=== PATIENT | male | born 1960 | race Caucasian/White ===

== ENCOUNTER 2021-10-18 10:32 | Emergency (ER) | payer OTHER ==
[2021-10-18] MEDS ORDERED: Hydromorphone 1 mg/ml Injection IM ONE (10:52)
[2021-10-18] MEDS ORDERED: MOTRIN 600 MG PO ONE (10:53)
[2021-10-18] MEDS ORDERED: Zofran 4 MG/2 ML VIAL IV ONE (10:54)
[2021-10-18] MEDS ORDERED: Zofran 4 MG/2 ML VIAL ONE (10:59)
[2021-10-18] MEDS ORDERED: Hydromorphone 1 mg/ml Injection ONE (11:00)
[2021-10-18] MEDS ORDERED: MOTRIN 600 MG ONE (11:00)
--- NOTE | 2021-10-18 11:43 | ERPHSYRPT ---
- History of Present Illness Time Seen by Provider: 10/18/21 10:34 Source: patient Exam Limitations: no limitations Patient Subjective Stated Complaint: Pt was in the shower and slipped and fell and landed with his right arm hitting the bath tub and injuring his right shou lder, pt feels that it is out of socket and is unable to move it Triage Nursing Assessment: Pt brought to the ER by his daughter, hypertensive, rates pain as 6/10, unable to move right arm without pain, denies hitting head or LOC, pulses normal, skin n/w/d Physician History: Location: right shoulder Quality: sharp Radiation: into arm Severity: moderate 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 Timing: after fall Modifying factors/associated signs and symptoms: none tried Timing/Duration: today Severity: moderate Modifying Factors: Improves With: other Allergies/Adverse Reactions: No Known Drug Allergies Allergy (Verified 10/18/21 10:49) Home Medications: Amiloride/Hydrochlorothiazide [Amiloride HCl-Hctz 5-50 mg Tab] 5 - 50 mg PO DAILY 08/12/16 [History] Amlodipine Besylate 5 mg [Norvasc 5 mg] 5 mg PO DAILY 08/12/16 [History] Atorvastatin Calcium [Lipitor 20MG Tablet] 20 mg PO DAILY 08/12/16 [History] Benazepril HCl 40 mg PO DAILY 08/12/16 [History] Duloxetine HCl 30 mg [Cymbalta 30 MG Capsule] 60 mg PO DAILY 08/12/16 [History] Empagliflozin [Jardiance] 10 mg PO DAILY 08/12/16 [History] Gabapentin [Neurontin] 300 mg PO TID 08/12/16 [History] Glipizide 10 mg [Glucotrol 10 MG] 10 mg PO DAILY 08/12/16 [History] Hydralazine HCl 50 mg PO BID 08/12/16 [History] Liraglutide [Victoza 3-Christ] 1.8 mg SQ DAILY 08/12/16 [History] Metformin HCl 1000 mg [Glucophage 1000 MG] 1,000 mg PO BID 08/12/16 [History] Metoprolol Tartrate 100 mg PO BID 08/12/16 [History] Trazodone HCl 100 mg PO HS PRN 11/03/16 [History] Hx Influenza Vaccination/Date Given: No Hx Pneumococcal Vaccination/Date Given: No Travel Risk - International Travel Have you traveled outside of the country in past 3 weeks: No - Coronavirus Screening Are you exhibiting any of the following symptoms?: No Close contact with a COVID-19 positive Pt in past 14-21 Days: No - Vaccine Status Have you recieved a Covid-19 vaccination: No - Review of Systems Constitutional: No Fever, No Chills Eyes: No Symptoms Ears, Nose, & Throat: No Symptoms Respiratory: No Cough, No Dyspnea Cardiac: No Chest Pain, No Edema, No Syncope Abdominal/Gastrointestinal: No Abdominal Pain, No Nausea, No Vomiting, No Diarrhea Genitourinary Symptoms: No Dysuria Musculoskeletal: No Back Pain, No Neck Pain Skin: Other (right shoulder pain), No Rash Neurological: No Dizziness, No Focal Weakness, No Sensory Changes Psychological: No Symptoms Endocrine: No Symptoms All Other Systems: Reviewed and Negative - Past Medical History Pertinent Past Medical History: Yes Neurological History: TIA ENT History: Other Cardiac History: High Cholesterol, Hypertension, Other Respiratory History: No Pertinent History Endocrine Medical History: Diabetes Type II Musculoskeletal History: No Pertinent History GI Medical History: No Pertinent History History: No Pertinent History Psycho-Social History: Anxiety, Depression Male Reproductive Disorders: No Pertinent History Other Medical History: pt states vision is blurry- may have mac deg. Has been told his heart is enlarged. - Past Surgical History Past Surgical History: No - Social History Smoking Status: Current some day smoker Exposure to second hand smoke: Yes Drug Use: none Patient Lives Alone: Yes - Nursing Vital Signs Nursing Vital Signs: Initial Vital Signs Temperature 96.7 F 10/18/21 10:44 Pulse Rate 96 H 10/18/21 10:44 Blood Pressure 154/100 10/18/21 10:44 O2 Sat by Pulse Oximetry 98 10/18/21 10:44 Pain Scale Pain Intensity 6 - Physical Exam General Appearance: no apparent distress, alert Eye Exam: PERRL/EOMI, eyes nml inspection Ears, Nose, Throat Exam: normal ENT inspection, TMs normal, pharynx normal, moist mucous membranes Neck Exam: normal inspection, non-tender, supple, full range of motion Respiratory Exam: normal breath sounds, lungs clear, No respiratory distress Cardiovascular Exam: regular rate/rhythm, normal heart sounds, normal peripheral pulses Gastrointestinal/Abdomen Exam: soft, normal bowel sounds, No tenderness, No mass Back Exam: normal inspection, normal range of motion, No CVA tenderness, No vertebral tenderness Extremity Exam: normal inspection, normal range of motion, pelvis stable, other (right shoulder pain and tenderness to palpation. Neurovascularly intact distal to injury) Neurologic Exam: alert, oriented x 3, cooperative, normal mood/affect, nml cerebellar function, nml station & gait, sensation nml, No motor deficits Skin Exam: normal color, warm, dry, No rash Lymphatic Exam: No adenopathy SpO2: 98 Procedures - Joint Reduction Time of Procedure: 11:55 Joint Reduction Site: Right, shoulder Conscious Sedation: Yes Reduction Attempts: 1 Pre-Procedure Neurovascular Exam: neurovascular intact Post Procedure Neurovascular Exam: neurovascular intact Post Joint Reduction Film: joint reduced - Procedural Sedation Indication: joint reduction Preparation: consent signed, capnographry, iv access, constant attendance, panel monitor, oxygen, procedure explained, pulse oximeter Sedation Parenteral: Propofol (Diprovan) Response during procedure: moderate sedation Post-Procedure Response: return to baseline mental status, vital signs stable - Course Nursing assessment & vital signs reviewed: Yes Ordered Tests: Active Orders 24 hr Category Date Time Status CO2 Monitoring STAT Care 10/18/21 13:01 Active HUMERUS Stat Exams 10/18/21 Taken SHOULDER Routine Exams 10/18/21 12:46 Taken SHOULDER Stat Exams 10/18/21 11:53 Taken Standby STAT RT 10/18/21 13:02 Active Medication Summary Generic Name Dose Route Start Last Admin Trade Name Freq PRN Reason Stop Dose Admin Propranolol HCl 100 mg 10/18/21 12:00 Propranolol Hcl 1 Mg/Ml Sdv IV 11/17/21 11:59 [id number] KALLIE Discontinued Medications Generic Name Dose Route Start Last Admin Trade Name Freq PRN Reason Stop Dose Admin Hydromorphone HCl 1 mg 10/18/21 10:52 10/18/21 11:06 Hydromorphone 1 Mg/1ml Inj 1 Mg/Ml Syringe IM 10/18/21 10:53 1 mg STAT ONE Administration Hydromorphone HCl Confirm 10/18/21 11:00 Hydromorphone 1 Mg/1ml Inj 1 Mg/Ml Syringe Administered 10/18/21 11:01 Dose 1 mg .ROUTE .STK-MED ONE Ibuprofen 600 mg 10/18/21 10:53 10/18/21 11:05 Ibuprofen 600 Mg Tablet PO 10/18/21 10:54 600 mg STAT ONE Administration Ibuprofen Confirm 10/18/21 11:00 Ibuprofen 600 Mg Tablet Administered 10/18/21 11:01 Dose 600 mg .ROUTE .STK-MED ONE Ondansetron HCl 8 mg 10/18/21 10:54 10/18/21 11:05 Ondansetron Hcl 4 Mg/2 Ml Vial IV 10/18/21 10:55 8 mg STAT ONE Administration Ondansetron HCl Confirm 10/18/21 10:59 Ondansetron Hcl 4 Mg/2 Ml Vial Administered 10/18/21 11:00 Dose 8 mg .ROUTE .STK-MED ONE Propofol 200 mg 10/18/21 12:09 10/18/21 12:32 Propofol 10 Mg/Ml 20ml Vial IV 10/18/21 12:10 100 mg STAT ONE Administration - Progress Progress: improved Progress Note: 10/18/21 11:43 Right shoulder pain. We will obtain x-ray right shoulder and right humerus. IV started, IV pain medication given. 10/18/21 13:25 Shoulder reduction successful. Propofol and IV Dilaudid given. See procedure note for full details. Patient will need close follow-up with orthopedic surgery. Reexam in 24 to 48 hours. Placed in a sling for home. He should not return to work or remove sling until follow-up with orthopedic surgery. Counseled pt/family regarding: diagnosis, need for follow-up, rad results - Departure Departure Disposition: In-patient Admission Clinical Impression: Shoulder dislocation Condition: Stable Critical Care Time: No Referrals: IRVING HENRY MD [Primary Care Provider] - Follow up/PCP as directed Instructions: Shoulder Sprain (DC) Additional Instructions: Follow-up with outpatient orthopedic surgery in 24 to 48 hours.
[2021-10-18] MEDS ORDERED: INDERAL 1 MG/ML IV SCH (12:00)
[2021-10-18] MEDS ORDERED: DIPRIVAN 200 MG/20 ML IV ONE (12:09)
[2021-10-18 13:04] VITALS: BP 142/116; PULSE 89
[2021-10-18 13:28] VITALS: O2SAT 98
--- NOTE | 2021-10-18 18:19 | XRAY ---
Indication: Pain following fall. Comparison: None 3 view right shoulder demonstrates anterior inferior humeral head dislocation. Incidental moderate acromioclavicular degenerative arthropathy with inferior spurring and multilevel cervical degenerative changes. No other bony, articular, or soft tissue abnormalities.
--- NOTE | 2021-10-18 18:22 | XRAY ---
Indication: Post reduction. Comparison comparison: Taken earlier in the day. 2 view right shoulder demonstrates successful reduction of previous humeral head dislocation. Stable AC degenerative arthropathy. No other bony, articular, or soft tissue abnormalities. Comment: Preliminary interpretation made by ALYSHA. No critical discrepancy.
--- NOTE | 2021-10-18 18:22 | XRAY ---
Indication: Pain following fall. Comparison: None 2 view right humerus demonstrates anterior inferior humeral head dislocation. Incidental moderate acromioclavicular degenerative arthropathy with inferior spurring. No other bony, articular, or soft tissue abnormalities.
== END 2021-10-18 13:34 | disposition home or self-care (01) ==
LOC: ED 10:32
DX: S43.014A Anterior dislocation of right humerus, initial encounter (principal); W01.198A Fall on same level from slipping, tripping and stumbling with subsequent striking against other object, initial encounter; Y93.E1 Activity, personal bathing and showering; Y92.002 Bathroom of unspecified non-institutional (private) residence as the place of occurrence of the external cause; I10 Essential (primary) hypertension; E78.5 Hyperlipidemia, unspecified; E11.9 Type 2 diabetes mellitus without complications; Z79.899 Other long term (current) drug therapy; Z79.84 Long term (current) use of oral hypoglycemic drugs; Z72.0 Tobacco use
CPT/HCPCS: 23650; 73030; 73060; 94799; 96374; 96375; 99284; J1170; J2405; J2704; A9270-GY

== ENCOUNTER 2022-03-11 17:29 | Observation (INO) | payer OTHER ==
[2022-03-11] MEDS ORDERED: MORPHINE SULFATE 4 MG INJ IV ONE (17:43)
[2022-03-11] MEDS ORDERED: Zofran 4 MG/2 ML VIAL IV ONE (17:43)
[2022-03-11] MEDS ORDERED: BABY ASPIRIN 81 MG CHEW PO ONE (17:44)
[2022-03-11] MEDS ORDERED: Lasix 40 MG/4 ML IV ONE (17:45)
[2022-03-11] MEDS ORDERED: Cardizem IV 50 MG/10 ML IV ONE ×2 (17:46→17:58)
[2022-03-11] MEDS ORDERED: CARDIZEM DRIP 100 MG/100 ML D5W 100 ML IV PRN ×2 (17:46→23:14)
[2022-03-11] MEDS ORDERED: DUONEB 0.5-3 MG/3 ml Neb IH ONE ×2 (17:46→17:50)
[2022-03-11 17:55] LABS: Absolute Neutrophil Ct (ANC) 6.46 x10^3/uL (1.4-6.9); Basophil (Absolute #) 0.11 x10^3/uL (0-0.4); Eosinophil % 1.3 % (0.00-5.0); Eosinophil (Absolute #) 0.12 x10^3/uL (0-0.5); Hematocrit 54.4 % (42-50); Hemoglobin 17.2 g/dL (12.5-18.0); Lymphocyte (Absolute #) 2.22 x10^3/uL (1.0-4.6); Lymphocytes % 23.3 % (24.0-44.0); Mean Cell Volume 90.1 fL (78-100); Mean Corpuscular Hemoglobin 28.5 pg (26-32); Mean Corpuscular Hgb Concent. 31.6 g/dL (32-36); Mean Platelet Volume 11.1 fL (7.5-11.0); Monocyte (Absolute #) 0.55 x10^3/uL (0.0-1.3); Monocytes % 5.8 % (0.0-12.0); Neutrophil % 67.9 % (36.0-66.0); Platelet Count 327 x10^3/uL (150-450); Red Blood Count 6.04 x10^6/uL (4.1-5.6); Red Cell Distribution Width 15.8 % (11.5-14.0); White Blood Count 9.5 x10^3/uL (4.0-10.5)
[2022-03-11] MEDS ORDERED: Lasix 40 MG/4 ML ONE (17:57)
[2022-03-11] MEDS ORDERED: MORPHINE SULFATE 4 MG INJ ONE (17:57)
[2022-03-11] MEDS ORDERED: BABY ASPIRIN 81 MG CHEW ONE (17:57)
[2022-03-11] MEDS ORDERED: CARDIZEM DRIP 100 MG/100 ML D5W 100 ML IV ONE (17:57)
[2022-03-11] MEDS ORDERED: Zofran 4 MG/2 ML VIAL ONE (17:57)
--- NOTE | 2022-03-11 18:08 | ERPHSYRPT ---
<HADLEY AYALA - Last Filed: 03/11/22 19:41> - History of Present Illness Source: patient Exam Limitations: no limitations Patient Subjective Stated Complaint: Pt c/o of being short of breath all day Triage Nursing Assessment: Pt brought to the ER by his daughter, hypertensive, tachycardic, tachypnic, denies pain, martin lower extremety edema, pulses normal, skin flushed/w/d Timing/Duration: day(s) (3), constant, resolved prior to arrival, gradual onset Activities at Onset: activity, rest Severity of Dyspnea-Max: moderate Severity of Dyspnea-Current: moderate Modifying Factors: Worsens With: exertion Associated Symptoms: chest pain/discomfort, edema, wheezing, heaviness Hx Influenza Vaccination/Date Given: No Hx Pneumococcal Vaccination/Date Given: No <IFTIKHAR MURRAY - Last Filed: 03/12/22 08:48> - History of Present Illness Time Seen by Provider: 03/11/22 17:43 Physician History: 62 years old male with history of hypertension, hyperlipidemia, diabetes mellitus, congestive heart failure, tobacco abuse presented in the ER with 3 days history of increasing shortness of breath and bilateral lower extremity swelling. Patient reports mild chest discomfort/heaviness but no pain. On presentation patient is in A. fib with RVR with no previous history of atrial fibrillation. (IFTIKHAR MURRAY) Allergies/Adverse Reactions: No Known Drug Allergies Allergy (Verified 03/11/22 17:46) Home Medications: Amlodipine Besylate 5 mg [Norvasc 5 mg] 5 mg PO DAILY 08/12/16 [History] Atorvastatin Calcium [Lipitor 20MG Tablet] 20 mg PO HS 08/12/16 [History] Benazepril HCl 40 mg PO DAILY 08/12/16 [History] Duloxetine HCl 30 mg [Cymbalta 30 MG Capsule] 60 mg PO DAILY 08/12/16 [History] Empagliflozin [Jardiance] 25 mg PO DAILY 08/12/16 [History] Gabapentin [Neurontin] 600 mg PO BID 08/12/16 [History] Glipizide 10 mg [Glucotrol 10 MG] 5 mg PO DAILY 08/12/16 [History] Hydralazine HCl 50 mg PO BID 08/12/16 [History] Metformin HCl 1000 mg [Glucophage 1000 MG] 1,000 mg PO BID 08/12/16 [History] Metoprolol Tartrate 50 mg PO BID 08/12/16 [History] Trazodone HCl 100 mg PO HS PRN 08/12/16 [History] Ammonium Lactate [Ammonium Lactate 12%] 1 applic TP HS 03/11/22 [History] Insulin Detemir [Levemir] 60 unit SQ BID 03/11/22 [History] Insulin Lispro [Admelog Solostar] 25 units SQ BID 03/11/22 [History] Tamsulosin HCl 0.4 mg [Flomax 0.4 MG] 0.4 mg PO HS 03/11/22 [History] Travel Risk - International Travel Have you traveled outside of the country in past 3 weeks: No - Coronavirus Screening Are you exhibiting any of the following symptoms?: No Close contact with a COVID-19 positive Pt in past 14-21 Days: No - Vaccine Status Have you recieved a Covid-19 vaccination: No <IFTIKHAR MURRAY - Last Filed: 03/12/22 08:48> - Review of Systems Constitutional: Fatigue, Weakness Eyes: No Symptoms Ears, Nose, & Throat: No Symptoms Respiratory: Dyspnea, Dyspnea on Exertion (HOUSER), Wheezing Cardiac: Edema, Palpitations Abdominal/Gastrointestinal: No Symptoms Genitourinary Symptoms: No Symptoms Musculoskeletal: No Symptoms Skin: No Symptoms Neurological: No Symptoms Psychological: No Symptoms Endocrine: No Symptoms Hematologic/Lymphatic: No Symptoms Immunological/Allergic: No Symptoms <IFTIKHAR MURRAY - Last Filed: 03/12/22 08:48> - Past Medical History Pertinent Past Medical History: Yes Neurological History: TIA ENT History: Other Cardiac History: Arrhythmia, High Cholesterol, Hypertension, Other Respiratory History: No Pertinent History Endocrine Medical History: Diabetes Type II Musculoskeletal History: No Pertinent History GI Medical History: No Pertinent History History: No Pertinent History Psycho-Social History: Anxiety, Depression Male Reproductive Disorders: No Pertinent History Other Medical History: pt states vision is blurry- may have mac deg. Has been told his heart is enlarged. - Past Surgical History Past Surgical History: Yes Musculoskeletal: Orthopedic Surgery Other Surgical History: shoulder - Social History Smoking Status: Current some day smoker Exposure to second hand smoke: Yes Drug Use: none Patient Lives Alone: Yes <TREVOR,IFTIKHAR - Last Filed: 03/12/22 08:48> - Physical Exam General Appearance: moderate distress, alert Eye Exam: PERRL/EOMI, eyes nml inspection Ears, Nose, Throat Exam: hearing grossly normal, normal ENT inspection Neck Exam: normal inspection, non-tender, supple, full range of motion Respiratory Exam: diminished breath sounds, accessory muscle use, crackles/rales, wheezing Cardiovascular/Chest Exam: normal heart sounds, edema, tachycardia, irregular Abdominal/Gastrointestinal Exam: soft, No tenderness Extremity Exam: non-tender, normal range of motion Neurologic Exam: alert, oriented x 3, cooperative Skin Exam: normal color SpO2 Interpretation: normal SpO2: 96 O2 Delivery: Room Air <TREVOR,IFTIKHAR - Last Filed: 03/12/22 08:48> - Nursing Vital Signs Nursing Vital Signs: Initial Vital Signs Temperature 96.4 F 03/11/22 17:34 Pulse Rate 135 H 03/11/22 17:34 Respiratory Rate 32 H 03/11/22 17:34 Blood Pressure 197/131 03/11/22 17:34 O2 Sat by Pulse Oximetry 96 03/11/22 17:34 Pain Scale Pain Intensity 0 - Course EKG Interpreted by Me: RATE (137), A-fib, NORMAL AXIS, NORMAL INTERVALS, Q-wave (Anteroinferior), Other (Nonspecific T wave changes) <TREVOR,IFTIKHAR - Last Filed: 03/12/22 08:48> Ordered Tests: Active Orders 24 hr Category Date Time Status Bedrest ROUTINE Activity 03/11/22 20:30 Active Up With Assistance ROUTINE Activity 03/11/22 20:30 Active Admit as Inpatient ROUTINE Care 03/11/22 20:30 Completed Web Content Coordinator STAT Care 03/11/22 17:44 Completed Code Status Order ROUTINE Care 03/11/22 20:30 Active EKG-ER Only STAT Care 03/11/22 17:43 Completed Fall Protocol Q1H Care 03/11/22 20:30 Active IV Care Q6H Care 03/11/22 20:30 Active IV Insertion STAT Care 03/11/22 17:43 Completed Oxygen-ED Only Nasal Cannula 2 lpm Care 03/11/22 17:43 Completed POCT Glucose Check ACHS Care 03/11/22 20:30 Active Donavan Fried, Apply ROUTINE Care 03/11/22 20:30 Active Weight,Daily 0600 Care 03/11/22 20:30 Active CHEST 1 VIEW (PORTABLE) Stat Exams 03/11/22 17:44 Completed CHEST WITH CONTRAST [CT] Stat Exams 03/11/22 18:38 Completed BLOOD CULTURE Stat Lab 03/11/22 18:10 Received CBC W DIFF AM.LAB Lab 03/12/22 04:15 Completed CBC W DIFF Stat Lab 03/11/22 17:41 Completed CK-Creatinine Phosphokinase Stat Lab 03/11/22 17:41 Completed CMP AM.LAB Lab 03/12/22 04:15 Completed CMP Stat Lab 03/11/22 17:41 Completed Lactic Acid Stat Lab 03/11/22 18:10 Completed NT PRO BNP Stat Lab 03/11/22 17:41 Completed TROPONIN Q3H Lab 03/11/22 17:41 Completed TROPONIN Q3H Lab 03/11/22 21:55 Completed TROPONIN Q3H Lab 03/11/22 23:45 Completed Oxygen Nasal Cannula 2 lpm RT 03/11/22 20:30 Active Respiratory Therapy Assessment DAILY RT 03/11/22 17:52 Active Medication Summary Generic Name Dose Route Start Last Admin Trade Name Freq PRN Reason Stop Dose Admin Acetaminophen 650 mg 03/11/22 20:30 Acetaminophen 325 Mg Tablet PO 04/10/22 20:29 Q4H PRN PRN PAIN AND/OR FEVER Albuterol/Ipratropium 3 ml 03/11/22 22:41 Ipratropium/Albuterol Sulfate 3 Ml Ampul.Neb IH 04/10/22 22:39 Q4HPRN PRN SHORTNESS OF BREATH Furosemide 20 mg 03/12/22 10:00 Furosemide 20 Mg/Vial IV 04/11/22 09:59 DAILY [facility] Insulin Glargine 20 unit 03/12/22 22:00 Insulin Glargine 1 Unit SQ 04/11/22 21:59 HS [facility] Insulin Human Lispro 0 unit 03/11/22 20:30 Insulin Lispro 1 Unit SQ 04/10/22 20:29 UD PRN HYPERGLYCEMIA Morphine Sulfate 2 mg 03/11/22 20:30 Morphine Sulfate 2 Mg/Ml Inj IV 03/16/22 20:29 Q4H PRN PRN PAIN Ondansetron HCl 4 mg 03/11/22 20:30 Ondansetron Hcl 4 Mg/2 Ml Vial IV 04/10/22 20:29 Q6H PRN PRN NAUSEA/VOMITING Pantoprazole Sodium 40 mg 03/12/22 10:00 Pantoprazole 40 Mg Vial IV 04/11/22 09:59 Q24H10 [facility] Potassium Chloride 20 meq 03/12/22 10:00 Potassium Chloride Tab 10 Meq Tab PO 04/11/22 09:59 BID [facility] Discontinued Medications Generic Name Dose Route Start Last Admin Trade Name Freq PRN Reason Stop Dose Admin Albuterol/Ipratropium 3 ml 03/11/22 17:46 03/11/22 17:52 Ipratropium/Albuterol Sulfate 3 Ml Ampul.Neb IH 03/11/22 17:47 3 ml STAT ONE Administration Albuterol/Ipratropium Confirm 03/11/22 17:50 Ipratropium/Albuterol Sulfate 3 Ml Ampul.Neb Administered 03/11/22 17:51 Dose 3 ml IH .STK-MED ONE Albuterol/Ipratropium 3 ml 03/11/22 20:30 03/12/22 04:26 Ipratropium/Albuterol Sulfate 3 Ml Ampul.Neb IH 04/10/22 20:29 Not Given Q6HRT [facility] Apixaban 5 mg 03/12/22 10:00 Apixaban 2.5 Mg Tablet PO 04/11/22 09:59 BID [facility] Aspirin 324 mg 03/11/22 17:44 03/11/22 17:59 Aspirin 81 Mg Tab.Chew PO 03/11/22 17:45 324 mg STAT ONE Administration Aspirin Confirm 03/11/22 17:57 Aspirin 81 Mg Tab.Chew Administered 03/11/22 17:58 Dose 324 mg .ROUTE .STK-MED ONE Diltiazem HCl 15 mg 03/11/22 17:46 03/11/22 18:00 Diltiazem Hcl Iv 5 Mg/Ml Vial IV 03/11/22 17:47 15 mg STAT ONE Administration Diltiazem HCl Confirm 03/11/22 17:58 Diltiazem Hcl Iv 5 Mg/Ml Vial Administered 03/11/22 17:59 Dose 50 mg IV .STK-MED ONE Enoxaparin Sodium 130 mg 03/11/22 19:00 03/11/22 22:32 Enoxaparin Sodium 120 Mg/0.8 Ml Syringe 1 mg/kg (130 mg) 04/10/22 18:59 Not Given SQ Q12H KALLIE Enoxaparin Sodium 120 mg 03/11/22 19:13 03/11/22 19:23 Enoxaparin Sodium 120 Mg/0.8 Ml Syringe SQ 03/11/22 19:14 120 mg 1XONLY ONE Administration Enoxaparin Sodium Confirm 03/11/22 19:07 Enoxaparin Sodium 120 Mg/0.8 Ml Syringe Administered 03/11/22 19:08 Dose 120 mg SQ .STK-MED ONE Furosemide 60 mg 03/11/22 17:45 03/11/22 18:04 Furosemide 40 Mg/4 Ml Vial IV 03/11/22 17:46 60 mg STAT ONE Administration Furosemide Confirm 03/11/22 17:57 Furosemide 40 Mg/4 Ml Vial Administered 03/11/22 17:58 Dose 80 mg .ROUTE .STK-MED ONE Gabapentin 600 mg 03/11/22 22:00 03/11/22 22:00 Gabapentin 300 Mg Capsule PO 03/11/22 22:01 600 mg ONCE ONE Administration Hydralazine HCl 50 mg 03/11/22 22:00 03/11/22 22:00 Hydralazine Hcl 25 Mg Tablet PO 03/11/22 22:01 50 mg ONCE ONE Administration Diltiazem HCl 100 mls @ 5 mls/hr 03/11/22 17:46 03/11/22 18:05 Cardizem Drip 100 Mg/100 Ml D5w IV 04/10/22 17:45 5 mg/hr .Q20H PRN 5 mls/hr HEART RATE/ A-FIB Administration Protocol 5 MG/HR Ceftriaxone Sodium/Dextrose 2 g in 50 mls @ 100 mls/hr 03/11/22 18:11 03/11/22 20:15 Rocephin 2 Gm-D5w 50ml Bag IV 03/11/22 18:40 Infused STAT STA Infusion Azithromycin 500 mg in 250 mls @ 250 mls/hr 03/11/22 18:11 03/11/22 20:16 Zithromax 500 Mg/ 250 Ml Nacl Premix IV 03/11/22 19:10 Infused STAT STA Infusion Ceftriaxone Sodium/Dextrose Confirm 03/11/22 18:42 Rocephin 2 Gm-D5w 50ml Bag Administered 03/11/22 18:43 Dose 2 g in 50 mls @ ud IV .STK-MED ONE Azithromycin Confirm 03/11/22 18:58 Zithromax 500 Mg/ 250 Ml Nacl Premix Administered 03/11/22 18:59 Dose 500 mg in 250 mls @ ud IV .STK-MED ONE Azithromycin Confirm 03/11/22 19:08 Zithromax 500 Mg/ 250 Ml Nacl Premix Administered 03/11/22 19:09 Dose 500 mg in 250 mls @ ud IV .STK-MED ONE Diltiazem HCl Confirm 03/11/22 17:57 Cardizem Drip 100 Mg/100 Ml D5w Administered 03/11/22 17:58 Dose 100 mls @ ud IV .STK-MED ONE Diltiazem HCl 100 mls @ 5 mls/hr 03/11/22 23:14 03/12/22 02:15 Cardizem Drip 100 Mg/100 Ml D5w IV 04/10/22 23:13 0 mg/hr .Q20H PRN 0 mls/hr HEART RATE/ A-FIB Titration Protocol 5 MG/HR Potassium Chloride 20 meq in 100 mls @ 50 mls/hr 03/12/22 06:06 03/12/22 06:22 Potassium Chloride 20 Meq In Water 100ml IV 03/12/22 08:05 50 mls/hr STAT ONE Administration Sodium Chloride Confirm 03/12/22 06:17 Sodium Chloride 0.9% 1000 Ml Administered 03/12/22 06:18 Dose 1,000 mls @ ud .ROUTE .STK-MED ONE Insulin Glargine 60 unit 03/11/22 22:00 03/11/22 22:03 Insulin Glargine 1 Unit SQ 03/11/22 22:01 60 unit HS ONE Administration Metformin HCl 1,000 mg 03/11/22 22:00 03/11/22 22:00 Metformin Hcl 500 Mg Tablet PO 03/11/22 22:01 Not Given ONCE ONE Metoprolol Succinate 50 mg 03/11/22 22:00 03/11/22 21:59 Metoprolol Succinate 50 Mg Tablet.Sa PO 03/11/22 22:01 50 mg ONCE ONE Administration Morphine Sulfate 4 mg 03/11/22 17:43 03/11/22 18:04 Morphine Sulfate 4 Mg/Ml Injection IV 03/11/22 17:44 4 mg STAT ONE Administration Morphine Sulfate Confirm 03/11/22 17:57 Morphine Sulfate 4 Mg/Ml Injection Administered 03/11/22 17:58 Dose 4 mg .ROUTE .STK-MED ONE Ondansetron HCl 4 mg 03/11/22 17:43 03/11/22 18:04 Ondansetron Hcl 4 Mg/2 Ml Vial IV 03/11/22 17:44 4 mg STAT ONE Administration Ondansetron HCl Confirm 03/11/22 17:57 Ondansetron Hcl 4 Mg/2 Ml Vial Administered 03/11/22 17:58 Dose 4 mg .ROUTE .STK-MED ONE Simvastatin 20 mg 03/11/22 22:00 03/11/22 21:59 Simvastatin 20 Mg Tablet PO 03/11/22 22:01 20 mg ONCE ONE Administration Tamsulosin HCl 0.4 mg 03/11/22 22:00 03/11/22 22:00 Tamsulosin Hcl 0.4 Mg Cap PO 03/11/22 22:01 0.4 mg ONCE ONE Administration Trazodone HCl 100 mg 03/11/22 22:00 03/11/22 22:00 Trazodone Hcl 50 Mg Tablet PO 03/11/22 22:01 100 mg ONCE ONE Administration Lab/Rad Data: Laboratory Result [facility] 03/11/22 17:41 03/11/22 17:41 Laboratory Results 03/11/22 03/11/22 03/11/22 Range/Units 18:20 18:10 17:41 WBC (4.0-10.5) x10^3/uL RBC (4.1-5.6) x10^6/uL Hgb (12.5-18.0) g/dL Hct (42-50) % MCV (78-100) fL MCH (26-32) pg MCHC (32-36) g/dL RDW (11.5-14.0) % Plt Count (150-450) x10^3/uL MPV (7.5-11.0) fL Gran % (36.0-66.0) % Immature Gran % (Auto) (0.00-0.4) % Nucleat RBC Rel Count (0.00-0.1) % Eos # (Auto) (0-0.5) x10^3/uL Immature Gran # (Auto) (0.00-0.03) x10^3u/L Absolute Lymphs (auto) (1.0-4.6) x10^3/uL Absolute Monos (auto) (0.0-1.3) x10^3/uL Absolute Nucleated RBC (0.00-0.01) x10^3u/L Lymphocytes % (24.0-44.0) % Monocytes % (0.0-12.0) % Eosinophils % (0.00-5.0) % Basophils % (0.0-0.4) % Absolute Granulocytes (1.4-6.9) x10^3/uL Basophils # (0-0.4) x10^3/uL Sodium (137-145) mmol/L Potassium (3.5-5.1) mmol/L Chloride (98-107) mmol/L Carbon Dioxide (22-30) mmol/L Anion Gap (5-15) MEQ/L BUN (9-20) mg/dL Creatinine (0.66-1.25) mg/dL Estimated GFR ML/MIN Glucose (74-106) mg/dL Lactic Acid 1.7 (0.4-2.0) Calcium (8.4-10.2) mg/dL Total Bilirubin (0.2-1.3) mg/dL AST (17-59) U/L ALT (0-50) U/L Alkaline Phosphatase (38-126) U/L Creatine Kinase (55-170) U/L Troponin I 0.066 H* (0.000-0.034) ng/mL NT-Pro-B Natriuret Pep (0-900) pg/mL Serum Total Protein (6.3-8.2) g/dL Albumin (3.5-5.0) g/dL Influenza Type A Ag NEGATIVE (NEGATIVE) Influenza Type B Ag NEGATIVE (NEGATIVE) RSV (PCR) NEGATIVE (Negative) SARS-CoV-2 (PCR) NEGATIVE (NEGATIVE) 03/11/22 03/11/22 Range/Units 17:41 17:41 WBC 9.5 (4.0-10.5) x10^3/uL RBC 6.04 H (4.1-5.6) x10^6/uL Hgb 17.2 (12.5-18.0) g/dL Hct 54.4 H (42-50) % MCV 90.1 (78-100) fL MCH 28.5 (26-32) pg MCHC 31.6 L (32-36) g/dL RDW 15.8 H (11.5-14.0) % Plt Count 327 (150-450) x10^3/uL MPV 11.1 H (7.5-11.0) fL Gran % 67.9 H (36.0-66.0) % Immature Gran % (Auto) 0.5 H (0.00-0.4) % Nucleat RBC Rel Count 0.0 (0.00-0.1) % Eos # (Auto) 0.12 (0-0.5) x10^3/uL Immature Gran # (Auto) 0.05 H (0.00-0.03) x10^3u/L Absolute Lymphs (auto) 2.22 (1.0-4.6) x10^3/uL Absolute Monos (auto) 0.55 (0.0-1.3) x10^3/uL Absolute Nucleated RBC 0.00 (0.00-0.01) x10^3u/L Lymphocytes % 23.3 L (24.0-44.0) % Monocytes % 5.8 (0.0-12.0) % Eosinophils % 1.3 (0.00-5.0) % Basophils % 1.2 (0.0-0.4) % Absolute Granulocytes 6.46 (1.4-6.9) x10^3/uL Basophils # 0.11 (0-0.4) x10^3/uL Sodium 144 (137-145) mmol/L Potassium 3.6 (3.5-5.1) mmol/L Chloride 107 (98-107) mmol/L Carbon Dioxide 28 (22-30) mmol/L Anion Gap 13.5 (5-15) MEQ/L BUN 16 (9-20) mg/dL Creatinine 0.90 (0.66-1.25) mg/dL Estimated GFR > 60.0 ML/MIN Glucose 152 H (74-106) mg/dL Lactic Acid (0.4-2.0) Calcium 9.6 (8.4-10.2) mg/dL Total Bilirubin 1.00 (0.2-1.3) mg/dL AST 60 H (17-59) U/L ALT 43 (0-50) U/L Alkaline Phosphatase 190 H (38-126) U/L Creatine Kinase 84 (55-170) U/L Troponin I (0.000-0.034) ng/mL NT-Pro-B Natriuret Pep 7620 H (0-900) pg/mL Serum Total Protein 7.0 (6.3-8.2) g/dL Albumin 3.9 (3.5-5.0) g/dL Influenza Type A Ag (NEGATIVE) Influenza Type B Ag (NEGATIVE) RSV (PCR) (Negative) SARS-CoV-2 (PCR) (NEGATIVE) <HADLEY AYALA - Last Filed: 03/11/22 19:41> - Progress Progress: improved Air Movement: fair Blood Culture(s) Obtained: Yes Antibiotics given: Yes Discussed with : Claire Will see patient in: hospital (observation) Counseled pt/family regarding: lab results, diagnosis, rad results <IFTIKHAR MURRAY - Last Filed: 03/12/22 08:48> - Progress Progress Note: 03/11/22 19:41 CTA of chest shows no pulmonary embolus. There is moderate bilateral effusions right greater than left. Favors CHF. (HADLEY AYALA) 03/11/22 18:[address] Morris, reviewed history, work-up and is excepted for admission. (IFTIKHAR MURRAY) - Departure Critical Care Time: Yes Critical Care Time(excluding separately billable procedures): Critical 30-74 mins <HADLEY AYALA - Last Filed: 03/11/22 19:41> - Departure Departure Disposition: In-patient Admission Critical Care Time: Yes Critical Care Time(excluding separately billable procedures): Critical 30-74 mins <IFTIKHAR MURRAY - Last Filed: 03/12/22 08:48> - Departure Clinical Impression: Shortness of breath, Non-STEMI (non-ST elevated myocardial infarction), Atrial fibrillation with RVR Condition: Stable
[2022-03-11] MEDS ORDERED: Zithromax 500 MG/ 250 ML NaCl Premix 500 MG/250 ML IVPB IV STA (18:11)
[2022-03-11] MEDS ORDERED: ROCEPHIN 2 Gm-D5w 50ML BAG** 2 G/50 ML IVPB IV STA (18:11)
[2022-03-11 18:12] LABS: ALBUMIN 3.9 g/dL (3.5-5.0); ALKALINE PHOSPHATASE 190 U/L (38-126); ANION GAP 13.5 MEQ/L (5-15); BLOOD UREA NITROGEN 16 mg/dL (9-20); CHLORIDE 107 mmol/L (98-107); CK-Creatinine Phosphokinase 84 U/L (55-170); Calcium 9.6 mg/dL (8.4-10.2); Carbon Dioxide 28 mmol/L (22-30); EST GLOMERULAR FILTRATION RATE > 60.0 ML/MIN; Glucose 152 mg/dL (74-106); Potassium 3.6 mmol/L (3.5-5.1); SGOT/AST 60 U/L (17-59); SGPT/ALT 43 U/L (0-50); SODIUM 144 mmol/L (137-145)
[2022-03-11 18:20] LABS: NT PRO BNP 7620 pg/mL (0-900)
[2022-03-11] MEDS ORDERED: ROCEPHIN 2 Gm-D5w 50ML BAG** 2 G/50 ML IVPB IV ONE (18:42)
[2022-03-11] MEDS ORDERED: Zithromax 500 MG/ 250 ML NaCl Premix 0 MG/0 ML IVPB IV ONE (18:58)
[2022-03-11] MEDS ORDERED: ENOXAPARIN SODIUM SQ SCH (19:00)
[2022-03-11] MEDS ORDERED: ENOXAPARIN SODIUM SQ ONE ×2 (19:07→19:13)
[2022-03-11] MEDS ORDERED: Zithromax 500 MG/ 250 ML NaCl Premix 500 MG/250 ML IVPB IV ONE (19:08)
[2022-03-11 19:16] LABS: INFLUENZA A NEGATIVE (NEGATIVE); INFLUENZA B NEGATIVE (NEGATIVE); RESPIRATORY SYNCTIAL VIRUS NEGATIVE (Negative); SARS-CoV-2 Xpert Express NEGATIVE (NEGATIVE)
[2022-03-11] MEDS ORDERED: MORPHINE SULFATE 2 MG INJ IV PRN (20:30)
[2022-03-11] MEDS ORDERED: DUONEB 0.5-3 MG/3 ml Neb IH SCH (20:30)
[2022-03-11] MEDS ORDERED: TYLENOL 325 MG PO PRN (20:30)
[2022-03-11] MEDS ORDERED: Zofran 4 MG/2 ML VIAL IV PRN (20:30)
[2022-03-11] MEDS ORDERED: Lantus Insulin SQ ONE (22:00)
[2022-03-11] MEDS ORDERED: Glucophage 500 MG PO ONE (22:00)
[2022-03-11] MEDS ORDERED: DESYREL 50 MG PO ONE (22:00)
[2022-03-11] MEDS ORDERED: Flomax 0.4 MG PO ONE (22:00)
[2022-03-11] MEDS ORDERED: NEURONTIN PO ONE (22:00)
[2022-03-11] MEDS ORDERED: ZOCOR 20MG PO ONE (22:00)
[2022-03-11] MEDS ORDERED: Apresoline 25 MG TABLET PO ONE (22:00)
[2022-03-11] MEDS ORDERED: Toprol Xl 50 MG PO ONE (22:00)
[2022-03-11] MEDS ORDERED: DUONEB 0.5-3 MG/3 ml Neb IH PRN (22:41)
[2022-03-12 04:39] LABS: Absolute Neutrophil Ct (ANC) 4.48 x10^3/uL (1.4-6.9); Basophil (Absolute #) 0.12 x10^3/uL (0-0.4); Eosinophil % 2.8 % (0.00-5.0); Eosinophil (Absolute #) 0.22 x10^3/uL (0-0.5); Hematocrit 46.6 % (42-50); Hemoglobin 14.5 g/dL (12.5-18.0); Lymphocyte (Absolute #) 2.41 x10^3/uL (1.0-4.6); Lymphocytes % 31.1 % (24.0-44.0); Mean Cell Volume 91.6 fL (78-100); Mean Corpuscular Hemoglobin 28.5 pg (26-32); Mean Corpuscular Hgb Concent. 31.1 g/dL (32-36); Mean Platelet Volume 10.9 fL (7.5-11.0); Monocyte (Absolute #) 0.47 x10^3/uL (0.0-1.3); Monocytes % 6.1 % (0.0-12.0); Neutrophil % 57.9 % (36.0-66.0); Platelet Count 247 x10^3/uL (150-450); Red Blood Count 5.09 x10^6/uL (4.1-5.6); Red Cell Distribution Width 15.4 % (11.5-14.0); White Blood Count 7.7 x10^3/uL (4.0-10.5)
[2022-03-12 05:34] LABS: ALKALINE PHOSPHATASE 123 U/L (38-126); ANION GAP 10.5 MEQ/L (5-15); BLOOD UREA NITROGEN 17 mg/dL (9-20); CHLORIDE 107 mmol/L (98-107); Calcium 8.6 mg/dL (8.4-10.2); Carbon Dioxide 29 mmol/L (22-30); Creatinine 1 0.95 mg/dL (0.66-1.25); EST GLOMERULAR FILTRATION RATE > 60.0 ML/MIN; Glucose 80 mg/dL (74-106); SGOT/AST 30 U/L (17-59); SGPT/ALT 31 U/L (0-50); SODIUM 144 mmol/L (137-145); Total Protein 5.9 g/dL (6.3-8.2)
[2022-03-12 05:48] LABS: Potassium 2.8 mmol/L (3.5-5.1)
[2022-03-12] MEDS ORDERED: POTASSIUM CHLORIDE 20 mEq IN WATER 100ML 20 MEQ/100 ML BAG IV ONE (06:06)
[2022-03-12] MEDS ORDERED: Sodium Chloride 0.9% 1000 ML 1,000 ML ONE (06:17)
--- NOTE | 2022-03-12 08:32 | PCM.HP ---
History of Present Illness - Chief Complaint Chief Complaint: Shortness of breath, Afib, NSTEMI History of Present Illness: is a 62 year old male who presented to the ER with shortness of breath, no chest pain, found to be in new onset a fib with RVR admitted with IV cardizem and converted overnight, currently off drip. was hypertensive on arrival but improved, hx of heart disease but now following with a corporate strategist presently, denies chest pain, states he feels much better today. patient has a long history of noncompliance. - Review of Systems Constitutional: No Fever, No Chills Eyes: No Symptoms Respiratory: Short Of Breath Cardiac: Edema, No Chest Pain Abdominal/Gastrointestinal: No Abdominal Pain, No Nausea, No Vomiting, No Lianne rrhea Skin: No Rash Neurological: No Dizziness, No Focal Weakness, No Sensory Changes Medications & Allergies Home Medications: Home Medication List Amlodipine Besylate 5 mg [Norvasc 5 mg] 5 mg PO DAILY 08/12/16 [History Confirmed 03/11/22] Atorvastatin Calcium [Lipitor 20MG Tablet] 20 mg PO HS 08/12/16 [History Confirmed 03/11/22] Benazepril HCl 40 mg PO DAILY 08/12/16 [History Confirmed 03/11/22] Duloxetine HCl 30 mg [Cymbalta 30 MG Capsule] 60 mg PO DAILY 08/12/16 [History Confirmed 03/11/22] Empagliflozin [Jardiance] 25 mg PO DAILY 08/12/16 [History Confirmed 03/11/22] Gabapentin [Neurontin] 600 mg PO BID 08/12/16 [History Confirmed 03/11/22] Glipizide 10 mg [Glucotrol 10 MG] 5 mg PO DAILY 08/12/16 [History Confirmed 03/11/22] Hydralazine HCl 50 mg PO BID 08/12/16 [History Confirmed 03/11/22] Metformin HCl 1000 mg [Glucophage 1000 MG] 1,000 mg PO BID 08/12/16 [History Confirmed 03/11/22] Metoprolol Tartrate 50 mg PO BID 08/12/16 [History Confirmed 03/11/22] Trazodone HCl 100 mg PO HS PRN 08/12/16 [History Confirmed 03/11/22] Ammonium Lactate [Ammonium Lactate 12%] 1 applic TP HS 03/11/22 [History Confirmed 03/11/22] Insulin Detemir [Levemir] 60 unit SQ BID 03/11/22 [History Confirmed 03/11/22] Insulin Lispro [Admelog Solostar] 25 units SQ BID 03/11/22 [History Confirmed 03/11/22] Tamsulosin HCl 0.4 mg [Flomax 0.4 MG] 0.4 mg PO HS 03/11/22 [History Confirmed 03/11/22] Allergies/Adverse Reactions: Allergies Allergy/AdvReac Type Severity Reaction Status Date / Time No Known Drug Allergies Allergy Verified 03/11/22 17:46 - Past Medical History Past Medical History: Yes Neurological History: Peripheral Neuropathy, TIA ENT History: No Pertinent History Cardiac History: Hypertension Respiratory History: CHF Endocrine Medical History: Diabetes Type II Musculoskelatal History: No Pertinent History GI Medical History: No Pertinent History History: No Pertinent History Pyscho-Social History: Depression Male Reproductive Disorders: Prostate Problems Comment: pt states vision is blurry- may have mac deg. Has been told his heart is enlarged. - Past Surgical History Past Surgical History: No Musculskeletal Surgical Hx: Orthopedic Surgery Other Surgical History: shoulder - Social History Smoking Status: Current every day smoker Exposure to second hand smoke: Yes Alcohol: Rarely Drug Use: none - Physical Exam Vital Signs: Vital Signs - 24 hr Temp Pulse Resp BP BP BP Pulse Ox 03/12/22 08:00 84 15 136/85 03/12/22 07:44 81 03/12/22 07:37 97.3 F 75 17 140/97 99 03/12/22 07:22 90 20 100 03/12/22 07:00 94 H 19 159/109 159/109 100 03/12/22 06:00 86 17 144/106 144/106 97 03/12/22 05:00 86 14 137/93 137/93 96 03/12/22 04:00 97.5 F 78 16 106/79 106/79 96 03/12/22 03:00 75 15 109/73 109/73 97 03/12/22 02:00 81 14 125/83 125/83 96 03/12/22 01:00 78 17 135/90 135/90 97 03/12/22 00:01 90 03/12/22 00:00 97.7 F 93 H 20 140/97 140/97 97 03/11/22 23:05 90 19 138/94 03/11/22 23:00 91 H 19 138/94 97 03/11/22 22:05 90 20 165/123 03/11/22 22:00 19 98 03/11/22 21:20 85 17 99 03/11/22 21:05 81 18 156/111 03/11/22 21:00 78 17 156/111 99 03/11/22 20:37 97.5 F 85 29 H 140/116 99 03/11/22 20:00 95 H 20 134/115 99 03/11/22 19:00 78 18 170/116 99 03/11/22 18:53 96 03/11/22 18:37 93 H 24 165/129 95 03/11/22 18:05 123 H 28 H 202/132 03/11/22 17:52 119 H 28 H 99 03/11/22 17:34 96.4 F 135 H 33 H 197/131 96 General Appearance: no apparent distress, obese Neurologic Exam: alert, oriented x 3, cooperative Respiratory Exam: crackles/rales Cardiovascular Exam: regular rate/rhythm, normal heart sounds, normal peripheral pulses Gastrointestinal/Abdomen Exam: soft, normal bowel sounds, No tenderness, No mass Extremity Exam: normal inspection, normal range of motion, pelvis stable Skin Exam: normal color, warm, dry, No rash Wound Assessment: Skin/Wound Assessment Wound/Incision Assessment Start: 03/11/22 20:56 Text: Status: Active Freq: Q6H Protocol: Document 03/12/22 07:44 ARSALAN (Rec: 03/12/22 07:50 ARSALAN [id number]) Wound/Incision Assessment Left Medial Ankle Wound Assessment Shift Assessment Wound Type scabbed area Drainage Amount None Drainage Odor None/Absent General Appearance Well Approximated Right Medial Ankle Wound Assessment Shift Assessment Wound Type scabbed area Drainage Amount None General Appearance Well Approximated Wound Photo Photo Taken No Results - Labs Lab/Micro Results: Lab Results-Last 24 Hours 03/11/22 03/11/22 03/11/22 Range/Units 17:41 17:41 17:41 WBC 9.5 (4.0-10.5) x10^3/uL RBC 6.04 H (4.1-5.6) x10^6/uL Hgb 17.2 (12.5-18.0) g/dL Hct 54.4 H (42-50) % MCV 90.1 (78-100) fL MCH 28.5 (26-32) pg MCHC 31.6 L (32-36) g/dL RDW 15.8 H (11.5-14.0) % Plt Count 327 (150-450) x10^3/uL MPV 11.1 H (7.5-11.0) fL Gran % 67.9 H (36.0-66.0) % Immature Gran % (Auto) 0.5 H (0.00-0.4) % Nucleat RBC Rel Count 0.0 (0.00-0.1) % Eos # (Auto) 0.12 (0-0.5) x10^3/uL Immature Gran # (Auto) 0.05 H (0.00-0.03) x10^3u/L Absolute Lymphs (auto) 2.22 (1.0-4.6) x10^3/uL Absolute Monos (auto) 0.55 (0.0-1.3) x10^3/uL Absolute Nucleated RBC 0.00 (0.00-0.01) x10^3u/L Lymphocytes % 23.3 L (24.0-44.0) % Monocytes % 5.8 (0.0-12.0) % Eosinophils % 1.3 (0.00-5.0) % Basophils % 1.2 (0.0-0.4) % Absolute Granulocytes 6.46 (1.4-6.9) x10^3/uL Basophils # 0.11 (0-0.4) x10^3/uL Sodium 144 (137-145) mmol/L Potassium 3.6 (3.5-5.1) mmol/L Chloride 107 (98-107) mmol/L Carbon Dioxide 28 (22-30) mmol/L Anion Gap 13.5 (5-15) MEQ/L BUN 16 (9-20) mg/dL Creatinine 0.90 (0.66-1.25) mg/dL Estimated GFR > 60.0 ML/MIN Glucose 152 H (74-106) mg/dL POC Glucometer (74 to 106) mg/dL Lactic Acid (0.4-2.0) Calcium 9.6 (8.4-10.2) mg/dL Total Bilirubin 1.00 (0.2-1.3) mg/dL AST 60 H (17-59) U/L ALT 43 (0-50) U/L Alkaline Phosphatase 190 H (38-126) U/L Creatine Kinase 84 (55-170) U/L Troponin I 0.066 H* (0.000-0.034) ng/mL NT-Pro-B Natriuret Pep 7620 H (0-900) pg/mL Serum Total Protein 7.0 (6.3-8.2) g/dL Albumin 3.9 (3.5-5.0) g/dL Influenza Type A Ag (NEGATIVE) Influenza Type B Ag (NEGATIVE) RSV (PCR) (Negative) SARS-CoV-2 (PCR) (NEGATIVE) 03/11/22 03/11/22 03/11/22 Range/Units 18:10 18:20 21:49 WBC (4.0-10.5) x10^3/uL RBC (4.1-5.6) x10^6/uL Hgb (12.5-18.0) g/dL Hct (42-50) % MCV (78-100) fL MCH (26-32) pg MCHC (32-36) g/dL RDW (11.5-14.0) % Plt Count (150-450) x10^3/uL MPV (7.5-11.0) fL Gran % (36.0-66.0) % Immature Gran % (Auto) (0.00-0.4) % Nucleat RBC Rel Count (0.00-0.1) % Eos # (Auto) (0-0.5) x10^3/uL Immature Gran # (Auto) (0.00-0.03) x10^3u/L Absolute Lymphs (auto) (1.0-4.6) x10^3/uL Absolute Monos (auto) (0.0-1.3) x10^3/uL Absolute Nucleated RBC (0.00-0.01) x10^3u/L Lymphocytes % (24.0-44.0) % Monocytes % (0.0-12.0) % Eosinophils % (0.00-5.0) % Basophils % (0.0-0.4) % Absolute Granulocytes (1.4-6.9) x10^3/uL Basophils # (0-0.4) x10^3/uL Sodium (137-145) mmol/L Potassium (3.5-5.1) mmol/L Chloride (98-107) mmol/L Carbon Dioxide (22-30) mmol/L Anion Gap (5-15) MEQ/L BUN (9-20) mg/dL Creatinine (0.66-1.25) mg/dL Estimated GFR ML/MIN Glucose (74-106) mg/dL POC Glucometer 119 H (74 to 106) mg/dL Lactic Acid 1.7 (0.4-2.0) Calcium (8.4-10.2) mg/dL Total Bilirubin (0.2-1.3) mg/dL AST (17-59) U/L ALT (0-50) U/L Alkaline Phosphatase (38-126) U/L Creatine Kinase (55-170) U/L Troponin I (0.000-0.034) ng/mL NT-Pro-B Natriuret Pep (0-900) pg/mL Serum Total Protein (6.3-8.2) g/dL Albumin (3.5-5.0) g/dL Influenza Type A Ag NEGATIVE (NEGATIVE) Influenza Type B Ag NEGATIVE (NEGATIVE) RSV (PCR) NEGATIVE (Negative) SARS-CoV-2 (PCR) NEGATIVE (NEGATIVE) 03/11/22 03/11/22 03/12/22 Range/Units 21:55 23:45 04:15 WBC 7.7 (4.0-10.5) x10^3/uL RBC 5.09 (4.1-5.6) x10^6/uL Hgb 14.5 (12.5-18.0) g/dL Hct 46.6 (42-50) % MCV 91.6 (78-100) fL MCH 28.5 (26-32) pg MCHC 31.1 L (32-36) g/dL RDW 15.4 H (11.5-14.0) % Plt Count 247 (150-450) x10^3/uL MPV 10.9 (7.5-11.0) fL Gran % 57.9 (36.0-66.0) % Immature Gran % (Auto) 0.5 H (0.00-0.4) % Nucleat RBC Rel Count 0.0 (0.00-0.1) % Eos # (Auto) 0.22 (0-0.5) x10^3/uL Immature Gran # (Auto) 0.04 H (0.00-0.03) x10^3u/L Absolute Lymphs (auto) 2.41 (1.0-4.6) x10^3/uL Absolute Monos (auto) 0.47 (0.0-1.3) x10^3/uL Absolute Nucleated RBC 0.00 (0.00-0.01) x10^3u/L Lymphocytes % 31.1 (24.0-44.0) % Monocytes % 6.1 (0.0-12.0) % Eosinophils % 2.8 (0.00-5.0) % Basophils % 1.6 (0.0-0.4) % Absolute Granulocytes 4.48 (1.4-6.9) x10^3/uL Basophils # 0.12 (0-0.4) x10^3/uL Sodium (137-145) mmol/L Potassium (3.5-5.1) mmol/L Chloride (98-107) mmol/L Carbon Dioxide (22-30) mmol/L Anion Gap (5-15) MEQ/L BUN (9-20) mg/dL Creatinine (0.66-1.25) mg/dL Estimated GFR ML/MIN Glucose (74-106) mg/dL POC Glucometer (74 to 106) mg/dL Lactic Acid (0.4-2.0) Calcium (8.4-10.2) mg/dL Total Bilirubin (0.2-1.3) mg/dL AST (17-59) U/L ALT (0-50) U/L Alkaline Phosphatase (38-126) U/L Creatine Kinase (55-170) U/L Troponin I 0.059 H* 0.056 H* (0.000-0.034) ng/mL NT-Pro-B Natriuret Pep (0-900) pg/mL Serum Total Protein (6.3-8.2) g/dL Albumin (3.5-5.0) g/dL Influenza Type A Ag (NEGATIVE) Influenza Type B Ag (NEGATIVE) RSV (PCR) (Negative) SARS-CoV-2 (PCR) (NEGATIVE) 03/12/22 03/12/22 03/12/22 Range/Units 04:15 06:42 06:45 WBC (4.0-10.5) x10^3/uL RBC (4.1-5.6) x10^6/uL Hgb (12.5-18.0) g/dL Hct (42-50) % MCV (78-100) fL MCH (26-32) pg MCHC (32-36) g/dL RDW (11.5-14.0) % Plt Count (150-450) x10^3/uL MPV (7.5-11.0) fL Gran % (36.0-66.0) % Immature Gran % (Auto) (0.00-0.4) % Nucleat RBC Rel Count (0.00-0.1) % Eos # (Auto) (0-0.5) x10^3/uL Immature Gran # (Auto) (0.00-0.03) x10^3u/L Absolute Lymphs (auto) (1.0-4.6) x10^3/uL Absolute Monos (auto) (0.0-1.3) x10^3/uL Absolute Nucleated RBC (0.00-0.01) x10^3u/L Lymphocytes % (24.0-44.0) % Monocytes % (0.0-12.0) % Eosinophils % (0.00-5.0) % Basophils % (0.0-0.4) % Absolute Granulocytes (1.4-6.9) x10^3/uL Basophils # (0-0.4) x10^3/uL Sodium 144 (137-145) mmol/L Potassium 2.8 L* D (3.5-5.1) mmol/L Chloride 107 (98-107) mmol/L Carbon Dioxide 29 (22-30) mmol/L Anion Gap 10.5 (5-15) MEQ/L BUN 17 (9-20) mg/dL Creatinine 0.95 (0.66-1.25) mg/dL Estimated GFR > 60.0 ML/MIN Glucose 80 (74-106) mg/dL POC Glucometer 46 L* 46 L* (74 to 106) mg/dL Lactic Acid (0.4-2.0) Calcium 8.6 (8.4-10.2) mg/dL Total Bilirubin 0.60 (0.2-1.3) mg/dL AST 30 (17-59) U/L ALT 31 (0-50) U/L Alkaline Phosphatase 123 (38-126) U/L Creatine Kinase (55-170) U/L Troponin I (0.000-0.034) ng/mL NT-Pro-B Natriuret Pep (0-900) pg/mL Serum Total Protein 5.9 L (6.3-8.2) g/dL Albumin 3.0 L (3.5-5.0) g/dL Influenza Type A Ag (NEGATIVE) Influenza Type B Ag (NEGATIVE) RSV (PCR) (Negative) SARS-CoV-2 (PCR) (NEGATIVE) 03/12/22 Range/Units 07:28 WBC (4.0-10.5) x10^3/uL RBC (4.1-5.6) x10^6/uL Hgb (12.5-18.0) g/dL Hct (42-50) % MCV (78-100) fL MCH (26-32) pg MCHC (32-36) g/dL RDW (11.5-14.0) % Plt Count (150-450) x10^3/uL MPV (7.5-11.0) fL Gran % (36.0-66.0) % Immature Gran % (Auto) (0.00-0.4) % Nucleat RBC Rel Count (0.00-0.1) % Eos # (Auto) (0-0.5) x10^3/uL Immature Gran # (Auto) (0.00-0.03) x10^3u/L Absolute Lymphs (auto) (1.0-4.6) x10^3/uL Absolute Monos (auto) (0.0-1.3) x10^3/uL Absolute Nucleated RBC (0.00-0.01) x10^3u/L Lymphocytes % (24.0-44.0) % Monocytes % (0.0-12.0) % Eosinophils % (0.00-5.0) % Basophils % (0.0-0.4) % Absolute Granulocytes (1.4-6.9) x10^3/uL Basophils # (0-0.4) x10^3/uL Sodium (137-145) mmol/L Potassium (3.5-5.1) mmol/L Chloride (98-107) mmol/L Carbon Dioxide (22-30) mmol/L Anion Gap (5-15) MEQ/L BUN (9-20) mg/dL Creatinine (0.66-1.25) mg/dL Estimated GFR ML/MIN Glucose (74-106) mg/dL POC Glucometer 101 (74 to 106) mg/dL Lactic Acid (0.4-2.0) Calcium (8.4-10.2) mg/dL Total Bilirubin (0.2-1.3) mg/dL AST (17-59) U/L ALT (0-50) U/L Alkaline Phosphatase (38-126) U/L Creatine Kinase (55-170) U/L Troponin I (0.000-0.034) ng/mL NT-Pro-B Natriuret Pep (0-900) pg/mL Serum Total Protein (6.3-8.2) g/dL Albumin (3.5-5.0) g/dL Influenza Type A Ag (NEGATIVE) Influenza Type B Ag (NEGATIVE) RSV (PCR) (Negative) SARS-CoV-2 (PCR) (NEGATIVE) Accuchecks Date 03/12/22 Date 03/12/22 Date 03/11/22 Time 07:30 Time 06:56 Time 21:30 - Radiology Impressions Radiology Exams & Impressions: Radiology Procedures Category Date Time Status CHEST 1 VIEW (PORTABLE) Stat Exams 03/11/22 17:44 Taken CHEST WITH CONTRAST [CT] Stat Exams 03/11/22 18:38 Taken ECHO W/2D AND DOPPLER [US] Routine Exams 03/12/22 Ordered - Other Procedures and Tests Respiratory Therapy 03/11/22 17:52 Respiratory Therapy Assessment DAILY 03/11/22 20:30 Oxygen Nasal Cannula 2 lpm 03/11/22 20:56 Smoking Cessation Education ONCE Assessment/Plan (1) Acute CHF (congestive heart failure) Current Visit: Yes Status: Acute Assessment & Plan: echo ordered, patient on benazepril and metoprolol, will continue. IV lasix ordered, potassium being replaced. cardiology consult with [place]ian[place] Code(s): I50.9 - HEART FAILURE, UNSPECIFIED (2) Atrial fibrillation with RVR Current Visit: Yes Status: Acute Assessment & Plan: resolved currently, has hematuria in sanchez and hemoglobin with significant drop, will hold any further anticoagulation pending cardiology recommendations but appears sinus at the time of my consult this morning Code(s): I48.91 - UNSPECIFIED ATRIAL FIBRILLATION (3) Elevated troponin Current Visit: Yes Status: Acute Assessment & Plan: related to a fib with rvr, echo pending and cardiology consulted but I don't feel he needs immediate intervention Code(s): R77.8 - OTHER SPECIFIED ABNORMALITIES OF PLASMA PROTEINS (4) DM (diabetes mellitus) Current Visit: No Status: Acute Code(s): E11.9 - TYPE 2 DIABETES MELLITUS WITHOUT COMPLICATIONS
--- NOTE | 2022-03-12 08:33 | XRAY ---
Indication: Short of breath. Comparison: August 12, 2016. Portable chest demonstrates new cardiomegaly, central vascular congestion, and small bibasilar effusions favoring cardiac decompensation/CHF. Superimposed pneumonia not completely excluded. Bony thorax intact.
--- NOTE | 2022-03-12 08:37 | XRAY ---
Indication: Short of breath. Pulmonary embolus. Multiple contiguous axial images obtained through the chest using 100 cc Isovue 370 contrast and PE protocol. Comparison: None Good opacification of the pulmonary arteries to include the lobar and segmental branches. No pulmonary embolus. Heart is enlarged. Aorta is normal in course and caliber without aneurysm/dissection. No pathologic mediastinal/hilar lymphadenopathy. Lungs demonstrates moderate right and mild left effusions with bibasilar compressive atelectasis right greater than left. Tiny inferior lingular calcified granuloma. Bony thorax intact with mild degenerative changes throughout the spine. Limited upper abdomen demonstrates fatty liver. Impression: 1. Negative pulmonary embolus. 2. Cardiomegaly with bilateral effusions/atelectasis right greater than left favoring cardiac decompensation/CHF. 3. Incidental fatty liver and old granulomatous disease.
[2022-03-12] MEDS ORDERED: NON-FORMULARY ITEM (Trazodone Hcl [Trazodone Hcl] 100 MG Tablet) PO PRN (09:05)
[2022-03-12] MEDS: Cymbalta 30 MG Capsule PO SCH (09:29)
[2022-03-12] MEDS: NORVASC 5 MG PO SCH (09:29)
[2022-03-12] MEDS: Apresoline 25 MG TABLET PO SCH ×2 (09:30→21:23)
[2022-03-12] MEDS: Lopressor 50 MG PO SCH ×2 (09:30→17:33)
[2022-03-12] MEDS: PROTONIX 40 MG IV IV SCH (09:30)
[2022-03-12] MEDS: NEURONTIN PO SCH ×2 (09:30→21:24)
[2022-03-12] MEDS: Lasix 20 MG/2 ML IV SCH (09:30)
[2022-03-12] MEDS: Lotensin PO SCH (09:30)
[2022-03-12] MEDS: Klor Con PO SCH ×2 (09:30→21:24)
[2022-03-12] MEDS ORDERED: ELIQUIS 2.5 MG TABLET PO SCH (10:00)
[2022-03-12] MEDS ORDERED: NON-FORMULARY ITEM (Benazepril Hcl [Benazepril Hcl] 40 MG Tablet) PO SCH (10:00)
[2022-03-12] MEDS ORDERED: NON-FORMULARY ITEM (Metoprolol Tartrate [Metoprolol Tartrate] 100 MG Tablet) PO SCH (10:00)
[2022-03-12] MEDS ORDERED: NON-FORMULARY ITEM (Hydralazine Hcl [Hydralazine Hcl] 50 MG Tablet) PO SCH (10:00)
[2022-03-12] MEDS ORDERED: Lasix 20 MG/2 ML IV ONE (16:30)
[2022-03-12] MEDS: Flomax 0.4 MG PO SCH (21:23)
[2022-03-12] MEDS: DESYREL 50 MG PO PRN (21:24)
[2022-03-12] MEDS: Zocor 10MG PO SCH (21:24)
[2022-03-12] MEDS: AMMONIUM LACTATE 12% TP SCH (21:24)
[2022-03-12] MEDS ORDERED: Lantus Insulin SQ SCH (22:00)
[2022-03-12] MEDS ORDERED: NON-FORMULARY ITEM (Atorvastatin Calcium 20 MG Tab) PO SCH (22:00)
[2022-03-13 06:17] LABS: Absolute Neutrophil Ct (ANC) 7.07 x10^3/uL (1.4-6.9); Eosinophil % 1.4 % (0.00-5.0); Eosinophil (Absolute #) 0.13 x10^3/uL (0-0.5); Hematocrit 45.6 % (42-50); Hemoglobin 14.4 g/dL (12.5-18.0); Lymphocyte (Absolute #) 1.66 x10^3/uL (1.0-4.6); Lymphocytes % 17.4 % (24.0-44.0); Mean Cell Volume 90.1 fL (78-100); Mean Corpuscular Hemoglobin 28.5 pg (26-32); Mean Corpuscular Hgb Concent. 31.6 g/dL (32-36); Mean Platelet Volume 11.2 fL (7.5-11.0); Monocyte (Absolute #) 0.57 x10^3/uL (0.0-1.3); Neutrophil % 73.9 % (36.0-66.0); Platelet Count 243 x10^3/uL (150-450); Red Blood Count 5.06 x10^6/uL (4.1-5.6); Red Cell Distribution Width 15.3 % (11.5-14.0); White Blood Count 9.6 x10^3/uL (4.0-10.5)
[2022-03-13 06:36] LABS: ANION GAP 9.4 MEQ/L (5-15); BLOOD UREA NITROGEN 18 mg/dL (9-20); CHLORIDE 105 mmol/L (98-107); Calcium 8.6 mg/dL (8.4-10.2); Carbon Dioxide 29 mmol/L (22-30); EST GLOMERULAR FILTRATION RATE > 60.0 ML/MIN; MAGNESIUM 1.4 mg/dL (1.6-2.3); NT PRO BNP 2690 pg/mL (0-900); Potassium 3.2 mmol/L (3.5-5.1); SODIUM 140 mmol/L (137-145)
[2022-03-13 06:42] LABS: Glucose 44 mg/dL (74-106)
[2022-03-13] MEDS: Cymbalta 30 MG Capsule PO SCH (10:25)
[2022-03-13] MEDS: Lopressor 50 MG PO SCH ×2 (10:25→21:19)
[2022-03-13] MEDS: NEURONTIN PO SCH ×2 (10:25→21:19)
[2022-03-13] MEDS: Lotensin PO SCH (10:25)
[2022-03-13] MEDS: PROTONIX 40 MG IV IV SCH (10:26)
[2022-03-13] MEDS: Klor Con PO SCH ×2 (10:26→21:20)
[2022-03-13] MEDS: Lasix 20 MG/2 ML IV SCH (10:26)
[2022-03-13] MEDS: Apresoline 25 MG TABLET PO SCH ×2 (10:26→21:20)
[2022-03-13] MEDS: NORVASC 5 MG PO SCH (10:26)
[2022-03-13] MEDS: Cardizem CD PO SCH (13:31)
--- NOTE | 2022-03-13 14:47 | PCM.NOTE ---
Date and Time: 03/13/22 1442 Subjective Assessment: Overnight, pt was in afib. Had rapid heart rate at one point last night, but improved with giving him the metoprolol early. He is feeling ok. His BS was 44 this morning; has been in the 40s two mornings in a row. His daughter is present currently and she said that when he was on levemir 60units BID, he weighed about 60lb more than he does now. Has lost the weight over the past 1 year, unintentionally, he "just can't eat." Pt's urine is looking just slightly red-tinged this morning. - Review of Systems Constitutional: No Fever Abdominal/Gastrointestinal: No Vomiting Objective Exam General Appearance: no apparent distress, alert, obese Neurologic Exam: oriented x 3, cooperative Skin Exam: normal color, warm, dry, No rash Wound Assessment: Skin/Wound Assessment Wound/Incision Assessment Start: 03/11/22 20:56 Text: Status: Active Freq: Q6H Protocol: Document 03/13/22 08:00 HECTOR (Rec: 03/13/22 09:14 [facility] [id number]) Wound/Incision Assessment Left Medial Ankle Wound Assessment Shift Assessment Wound Type scabbed area Drainage Amount None Drainage Odor None/Absent General Appearance Well Approximated Right Medial Ankle Wound Assessment Shift Assessment Wound Type scabbed area Drainage Amount None General Appearance Well Approximated Wound Photo Photo Taken No Eye Exam: eyes nml inspection Ears, Nose, Throat Exam: moist mucous membranes Neck Exam: normal inspection Respiratory Exam: normal breath sounds, lungs clear, No crackles/rales, No rhonchi, No wheezing Cardiovascular Exam: regular rate/rhythm, normal heart sounds, No murmur Gastrointestinal/Abdomen Exam: soft, normal bowel sounds, distention (obese), No tenderness, No mass, No guarding, No rebound Extremity Exam: normal inspection, No pedal edema, No swelling Back Exam: normal inspection, No rash OBJECTIVE DATA Vital Signs: Vital Signs - 24 hr Temp Pulse Resp BP Pulse Ox 03/13/22 12:00 98 F 86 24 141/115 95 03/13/22 08:00 97.3 F 95 H 17 149/92 99 03/13/22 07:26 84 18 96 03/13/22 04:00 98.0 F 93 H 20 112/73 96 03/12/22 23:26 98.5 F 96 H 18 91/63 95 03/12/22 19:15 98.7 F 79 21 136/87 96 03/12/22 18:11 110 H 24 96 03/12/22 16:23 104 H 24 150/100 97 03/12/22 15:54 97.2 F 95 H 26 H 134/105 97 Pain Assessment - Last Documented Pain Intensity 0 Intake and Output: Intake & Output 03/11/22 03/12/22 03/13/22 03/14/22 11:59 11:59 11:59 11:59 Intake Total 720 1560 600 Output Total 2450 3450 850 Balance -1730 -1890 -250 Weight 129.2 kg 130.2 kg Lab Results: Lab Results-Last 24 Hours 03/12/22 03/12/22 03/13/22 Range/Units 15:33 20:46 05:53 WBC 9.6 (4.0-10.5) x10^3/uL RBC 5.06 (4.1-5.6) x10^6/uL Hgb 14.4 (12.5-18.0) g/dL Hct 45.6 (42-50) % MCV 90.1 (78-100) fL MCH 28.5 (26-32) pg MCHC 31.6 L (32-36) g/dL RDW 15.3 H (11.5-14.0) % Plt Count 243 (150-450) x10^3/uL MPV 11.2 H (7.5-11.0) fL Gran % 73.9 H (36.0-66.0) % Immature Gran % (Auto) 0.3 (0.00-0.4) % Nucleat RBC Rel Count 0.0 (0.00-0.1) % Eos # (Auto) 0.13 (0-0.5) x10^3/uL Immature Gran # (Auto) 0.03 (0.00-0.03) x10^3u/L Absolute Lymphs (auto) 1.66 (1.0-4.6) x10^3/uL Absolute Monos (auto) 0.57 (0.0-1.3) x10^3/uL Absolute Nucleated RBC 0.00 (0.00-0.01) x10^3u/L Lymphocytes % 17.4 L (24.0-44.0) % Monocytes % 6.0 (0.0-12.0) % Eosinophils % 1.4 (0.00-5.0) % Basophils % 1.0 (0.0-0.4) % Absolute Granulocytes 7.07 H (1.4-6.9) x10^3/uL Basophils # 0.10 (0-0.4) x10^3/uL Sodium (137-145) mmol/L Potassium (3.5-5.1) mmol/L Chloride (98-107) mmol/L Carbon Dioxide (22-30) mmol/L Anion Gap (5-15) MEQ/L BUN (9-20) mg/dL Creatinine (0.66-1.25) mg/dL Estimated GFR ML/MIN Glucose (74-106) mg/dL POC Glucometer 151 H 163 H (74 to 106) mg/dL Calcium (8.4-10.2) mg/dL Magnesium (1.6-2.3) mg/dL NT-Pro-B Natriuret Pep (0-900) pg/mL 03/13/22 03/13/22 03/13/22 Range/Units 05:53 07:08 11:19 WBC (4.0-10.5) x10^3/uL RBC (4.1-5.6) x10^6/uL Hgb (12.5-18.0) g/dL Hct (42-50) % MCV (78-100) fL MCH (26-32) pg MCHC (32-36) g/dL RDW (11.5-14.0) % Plt Count (150-450) x10^3/uL MPV (7.5-11.0) fL Gran % (36.0-66.0) % Immature Gran % (Auto) (0.00-0.4) % Nucleat RBC Rel Count (0.00-0.1) % Eos # (Auto) (0-0.5) x10^3/uL Immature Gran # (Auto) (0.00-0.03) x10^3u/L Absolute Lymphs (auto) (1.0-4.6) x10^3/uL Absolute Monos (auto) (0.0-1.3) x10^3/uL Absolute Nucleated RBC (0.00-0.01) x10^3u/L Lymphocytes % (24.0-44.0) % Monocytes % (0.0-12.0) % Eosinophils % (0.00-5.0) % Basophils % (0.0-0.4) % Absolute Granulocytes (1.4-6.9) x10^3/uL Basophils # (0-0.4) x10^3/uL Sodium 140 (137-145) mmol/L Potassium 3.2 L (3.5-5.1) mmol/L Chloride 105 (98-107) mmol/L Carbon Dioxide 29 (22-30) mmol/L Anion Gap 9.4 (5-15) MEQ/L BUN 18 (9-20) mg/dL Creatinine 0.90 (0.66-1.25) mg/dL Estimated GFR > 60.0 ML/MIN Glucose 44 L* (74-106) mg/dL POC Glucometer 85 180 H (74 to 106) mg/dL Calcium 8.6 (8.4-10.2) mg/dL Magnesium 1.4 L (1.6-2.3) mg/dL NT-Pro-B Natriuret Pep 2690 H (0-900) pg/mL Radiology Exams: Radiology Procedures Category Date Time Status CHEST 1 VIEW (PORTABLE) Stat Exams 03/11/22 17:44 Completed CHEST WITH CONTRAST [CT] Stat Exams 03/11/22 18:38 Completed ECHO W/2D AND DOPPLER [US] Routine Exams 03/12/22 12:36 Taken Multi-Disciplinary Progress Notes: Multi-Disciplinary Progress Notes 03/13/22 07:49 Respiratory Note by Zina Burns ROOM AIR RESTING SPO2 94% Initialized on 03/13/22 07:49 - END OF NOTE Assessment/Plan (1) Atrial fibrillation with RVR Current Visit: Yes Status: Acute Assessment & Plan: Pt has continued to have atrial fibrillation - wasn't apparent on exam, but has been present on telemetry. Started cardizem 120mg CD daily. He had been given a large dose of lovenox in the ER, then had significant hematuria, so no further thinners were added (at that time, pt was in NSR). Cardiology consult was ordered, but due to equipment malfunctions, we're not able to do that at this time. He is currently not bleeding, and continues to have afib, so will order eliquis po at 5mg po BID. If he has bleeding at this dose, could decrease it to 2.5mg po BID. The risk of having CVA with the afib appears, in my medical judgement, to be higher than the risk of having a life-threatening bleed. HAS- BLED risk is still low, 2. [id number] VASc score is 4, and oral coagulation is recommended. Code(s): I48.91 - UNSPECIFIED ATRIAL FIBRILLATION (2) Acute CHF (congestive heart failure) Current Visit: Yes Status: Acute Code(s): I50.9 - HEART FAILURE, UNSPECIFIED (3) Hypertension Current Visit: Yes Status: Chronic Qualifiers: Hypertension type: primary hypertension Qualified Code(s): I10 - Essential (primary) hypertension Code(s): I10 - ESSENTIAL (PRIMARY) HYPERTENSION (4) Coronary artery disease Current Visit: Yes Status: Chronic Qualifiers: Coronary Disease-Associated Artery/Lesion type: [place] artery Code(s): I25.10 - ATHSCL HEART DISEASE OF [place] CORONARY ARTERY W/O ANG PCTRS (5) Peripheral neuropathy Current Visit: Yes Status: Chronic Qualifiers: Peripheral neuropathy type: polyneuropathy associated with underlying disease Qualified Code(s): G63 - Polyneuropathy in diseases classified elsewhere Code(s): G62.9 - POLYNEUROPATHY, UNSPECIFIED (6) DM (diabetes mellitus) Current Visit: No Status: Acute Qualifiers: Diabetes mellitus type: type 2 Diabetes mellitus detention insulin use: with detention use Diabetes mellitus complication status: with neurologic complications Diabetes mellitus complication detail: with polyneuropathy Qualified Code(s): E11.42 - Type 2 diabetes mellitus with diabetic polyneuropathy; Z79.4 - FPC (current) use of insulin Code(s): E11.9 - TYPE 2 DIABETES MELLITUS WITHOUT COMPLICATIONS (7) Hematuria Current Visit: Yes Status: Acute Qualifiers: Hematuria type: gross Qualified Code(s): R31.0 - Gross hematuria Code(s): R31.9 - HEMATURIA, UNSPECIFIED (8) Hypoglycemia Current Visit: Yes Status: Acute Assessment & Plan: changed his insulin to 15units daily - likely needs less due to eating less and weight loss over the past 1 year. Is NOT compliant with 60units BID at home. Code(s): E16.2 - HYPOGLYCEMIA, UNSPECIFIED (9) Unintentional weight change Current Visit: Yes Status: Chronic Assessment & Plan: Will need to f/u with Dr. Morris about this. I discussed with pt and his daughter today that there can be concern for occult cancer with this much weight loss. Code(s): R68.89 - OTHER GENERAL SYMPTOMS AND SIGNS
[2022-03-13] MEDS: ELIQUIS 2.5 MG TABLET PO SCH ×2 (15:20→21:20)
[2022-03-13] MEDS: HUMALOG SQ PRN (17:27)
[2022-03-13] MEDS: Flomax 0.4 MG PO SCH (21:19)
[2022-03-13] MEDS: Zocor 10MG PO SCH (21:19)
[2022-03-13] MEDS: AMMONIUM LACTATE 12% TP SCH (21:21)
[2022-03-13] MEDS: Lantus Insulin SQ SCH (21:21)
[2022-03-14 06:01] LABS: Hematocrit 47.4 % (42-50); Hemoglobin 14.8 g/dL (12.5-18.0); Mean Cell Volume 91.3 fL (78-100); Mean Corpuscular Hemoglobin 28.5 pg (26-32); Mean Corpuscular Hgb Concent. 31.2 g/dL (32-36); Mean Platelet Volume 11.3 fL (7.5-11.0); Platelet Count 227 x10^3/uL (150-450); Red Blood Count 5.19 x10^6/uL (4.1-5.6); White Blood Count 8.9 x10^3/uL (4.0-10.5)
[2022-03-14 06:25] LABS: ANION GAP 9.9 MEQ/L (5-15); BLOOD UREA NITROGEN 18 mg/dL (9-20); CHLORIDE 103 mmol/L (98-107); Calcium 8.7 mg/dL (8.4-10.2); Carbon Dioxide 29 mmol/L (22-30); Creatinine 1 0.86 mg/dL (0.66-1.25); EST GLOMERULAR FILTRATION RATE > 60.0 ML/MIN; Glucose 114 mg/dL (74-106); Potassium 3.5 mmol/L (3.5-5.1); SODIUM 138 mmol/L (137-145)
--- NOTE | 2022-03-14 07:46 | PCM.NOTE ---
Date and Time: 03/14/22741 Subjective Assessment: Urine is now dark red in urine bag. Hgb 14.8 from 14.4 yesterday. HR increases when he is up to the bathroom - to 130. Otherwise, 70s-80s. Pt states breathing is ok. - Review of Systems Constitutional: No Fever Abdominal/Gastrointestinal: No Vomiting Objective Exam General Appearance: no apparent distress, alert, obese Neurologic Exam: oriented x 3, cooperative Skin Exam: normal color, warm, dry, No rash Wound Assessment: Skin/Wound Assessment Wound/Incision Assessment Start: 03/11/22 20:56 Text: Status: Active Freq: Q6H Protocol: Document 03/14/22 02:00 AB (Rec: 03/14/22 02:18 AB [id number]) Wound/Incision Assessment Left Medial Ankle Wound Assessment Shift Assessment Wound Type scabbed area Drainage Amount None Drainage Odor None/Absent General Appearance Well Approximated,Open to air Right Medial Ankle Wound Assessment Shift Assessment Wound Type scabbed area Drainage Amount None General Appearance Well Approximated,Open to air Wound Photo Photo Taken No Eye Exam: eyes nml inspection Ears, Nose, Throat Exam: moist mucous membranes Neck Exam: normal inspection Respiratory Exam: normal breath sounds, lungs clear, No crackles/rales, No rhonchi, No wheezing Cardiovascular Exam: regular rate/rhythm, normal heart sounds, No murmur Gastrointestinal/Abdomen Exam: soft, normal bowel sounds, No tenderness, No distention, No mass, No guarding, No rebound Extremity Exam: pedal edema, swelling (1+ bilat LE edema) Back Exam: normal inspection, No rash OBJECTIVE DATA Vital Signs: Vital Signs - 24 hr Temp Pulse Resp BP Pulse Ox 03/14/22 04:00 98.7 F 79 24 106/37 96 03/13/22 23:37 98.2 F 77 19 112/63 95 03/13/22 19:45 98.4 F 90 17 115/74 97 03/13/22 19:08 70 16 94 L 03/13/22 16:00 97.7 F 96 H 19 152/91 98 03/13/22 12:00 98 F 86 24 141/115 95 03/13/22 08:00 97.3 F 95 H 17 149/92 99 Pain Assessment - Last Documented Pain Intensity 0 Intake and Output: Intake & Output 03/11/22 03/12/22 03/13/22 03/14/22 11:59 11:59 11:59 11:59 Intake Total 720 1560 1400 Output Total 2450 3450 2600 Balance -1730 -1890 -1200 Weight 129.2 kg 130.2 kg 131.3 kg Lab Results: Lab Results-Last 24 Hours 03/13/22 03/13/22 03/13/22 Range/Units 11:19 16:27 20:48 WBC (4.0-10.5) x10^3/uL RBC (4.1-5.6) x10^6/uL Hgb (12.5-18.0) g/dL Hct (42-50) % MCV (78-100) fL MCH (26-32) pg MCHC (32-36) g/dL RDW (11.5-14.0) % Plt Count (150-450) x10^3/uL MPV (7.5-11.0) fL Sodium (137-145) mmol/L Potassium (3.5-5.1) mmol/L Chloride (98-107) mmol/L Carbon Dioxide (22-30) mmol/L Anion Gap (5-15) MEQ/L BUN (9-20) mg/dL Creatinine (0.66-1.25) mg/dL Estimated GFR ML/MIN Glucose (74-106) mg/dL POC Glucometer 180 H 214 H 157 H (74 to 106) mg/dL Calcium (8.4-10.2) mg/dL 03/14/22 03/14/22 03/14/22 Range/Units 00:32 05:36 05:36 WBC 8.9 (4.0-10.5) x10^3/uL RBC 5.19 (4.1-5.6) x10^6/uL Hgb 14.8 (12.5-18.0) g/dL Hct 47.4 (42-50) % MCV 91.3 (78-100) fL MCH 28.5 (26-32) pg MCHC 31.2 L (32-36) g/dL RDW 15.0 H (11.5-14.0) % Plt Count 227 (150-450) x10^3/uL MPV 11.3 H (7.5-11.0) fL Sodium 138 (137-145) mmol/L Potassium 3.5 (3.5-5.1) mmol/L Chloride 103 (98-107) mmol/L Carbon Dioxide 29 (22-30) mmol/L Anion Gap 9.9 (5-15) MEQ/L BUN 18 (9-20) mg/dL Creatinine 0.86 (0.66-1.25) mg/dL Estimated GFR > 60.0 ML/MIN Glucose 114 H (74-106) mg/dL POC Glucometer 125 H (74 to 106) mg/dL Calcium 8.7 (8.4-10.2) mg/dL 03/14/22 03/14/22 Range/Units 06:18 07:34 WBC (4.0-10.5) x10^3/uL RBC (4.1-5.6) x10^6/uL Hgb (12.5-18.0) g/dL Hct (42-50) % MCV (78-100) fL MCH (26-32) pg MCHC (32-36) g/dL RDW (11.5-14.0) % Plt Count (150-450) x10^3/uL MPV (7.5-11.0) fL Sodium (137-145) mmol/L Potassium (3.5-5.1) mmol/L Chloride (98-107) mmol/L Carbon Dioxide (22-30) mmol/L Anion Gap (5-15) MEQ/L BUN (9-20) mg/dL Creatinine (0.66-1.25) mg/dL Estimated GFR ML/MIN Glucose (74-106) mg/dL POC Glucometer 102 137 H (74 to 106) mg/dL Calcium (8.4-10.2) mg/dL Radiology Exams: Radiology Procedures Category Date Time Status ECHO W/2D AND DOPPLER [US] Routine Exams 03/12/22 12:36 Taken Multi-Disciplinary Progress Notes: Multi-Disciplinary Progress Notes 03/13/22 07:49 Respiratory Note by Zina Burns ROOM AIR RESTING SPO2 94% Initialized on 03/13/22 07:49 - END OF NOTE Assessment/Plan (1) Atrial fibrillation with RVR Current Visit: Yes Status: Acute Assessment & Plan: He is doing better on cardizem CD 120mg/d, but still having high HR when up moving around. He had a low BP to 106/73 this morning; however yesterday he had amlodipine 5mg AND we started cardizem. If he has continued episodes of high HR today but the BP is a bit higher, could increase the cardizem. In the absence of cardiology consult, with low HAS-BLED and high [id number], pt is on anticoagulation, although I did decrease eliquis today in light of the hematuria. Overall, his hgb is stable. Code(s): I48.91 - UNSPECIFIED ATRIAL FIBRILLATION (2) Acute CHF (congestive heart failure) Current Visit: Yes Status: Acute Code(s): I50.9 - HEART FAILURE, UNSPECIFIED (3) Hypertension Current Visit: Yes Status: Chronic Qualifiers: Hypertension type: primary hypertension Qualified Code(s): I10 - Essential (primary) hypertension Code(s): I10 - ESSENTIAL (PRIMARY) HYPERTENSION (4) Coronary artery disease Current Visit: Yes Status: Chronic Qualifiers: Coronary Disease-Associated Artery/Lesion type: [place] artery Code(s): I25.10 - ATHSCL HEART DISEASE OF [place] CORONARY ARTERY W/O ANG PCTRS (5) Peripheral neuropathy Current Visit: Yes Status: Chronic Qualifiers: Peripheral neuropathy type: polyneuropathy associated with underlying disease Qualified Code(s): G63 - Polyneuropathy in diseases classified elsewhere Code(s): G62.9 - POLYNEUROPATHY, UNSPECIFIED (6) DM (diabetes mellitus) Current Visit: No Status: Acute Qualifiers: Diabetes mellitus type: type 2 Diabetes mellitus retirement insulin use: with retirement use Diabetes mellitus complication status: with neurologic complications Diabetes mellitus complication detail: with polyneuropathy Qualified Code(s): E11.42 - Type 2 diabetes mellitus with diabetic polyneuropathy; 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 Code(s): R31.9 - HEMATURIA, UNSPECIFIED (8) Hypoglycemia Current Visit: Yes Status: Acute Code(s): E16.2 - HYPOGLYCEMIA, UNSPECIFIED (9) Unintentional weight change Current Visit: Yes Status: Chronic Code(s): R68.89 - OTHER GENERAL SYMPTOMS AND SIGNS
[2022-03-14] MEDS: NEURONTIN PO SCH ×2 (08:48→23:02)
[2022-03-14] MEDS: Cardizem CD PO SCH (08:48)
[2022-03-14] MEDS: Lopressor 50 MG PO SCH ×2 (08:48→23:02)
[2022-03-14] MEDS: Klor Con PO SCH ×2 (09:56→23:03)
[2022-03-14] MEDS: Apresoline 25 MG TABLET PO SCH ×2 (09:56→23:03)
[2022-03-14] MEDS: Lotensin PO SCH (09:56)
[2022-03-14] MEDS: ELIQUIS 2.5 MG TABLET PO SCH ×2 (09:56→23:03)
[2022-03-14] MEDS: Lasix 20 MG/2 ML IV SCH (09:57)
[2022-03-14] MEDS: Cymbalta 30 MG Capsule PO SCH (09:57)
[2022-03-14] MEDS: PROTONIX 40 MG IV IV SCH (09:57)
[2022-03-14] MEDS: HUMALOG SQ PRN ×2 (12:24→23:00)
[2022-03-14] MEDS: Lantus Insulin SQ SCH (22:59)
[2022-03-14] MEDS: Zocor 10MG PO SCH (23:02)
[2022-03-14] MEDS: Flomax 0.4 MG PO SCH (23:02)
[2022-03-14] MEDS: DESYREL 50 MG PO PRN (23:03)
[2022-03-14] MEDS: AMMONIUM LACTATE 12% TP SCH (23:04)
[2022-03-15 05:07] LABS: Hematocrit 45.9 % (42-50); Hemoglobin 14.5 g/dL (12.5-18.0); Mean Cell Volume 89.5 fL (78-100); Mean Corpuscular Hemoglobin 28.3 pg (26-32); Mean Corpuscular Hgb Concent. 31.6 g/dL (32-36); Mean Platelet Volume 11.5 fL (7.5-11.0); Platelet Count 227 x10^3/uL (150-450); Red Blood Count 5.13 x10^6/uL (4.1-5.6); White Blood Count 7.8 x10^3/uL (4.0-10.5)
[2022-03-15 05:23] LABS: ANION GAP 8.4 MEQ/L (5-15); BLOOD UREA NITROGEN 19 mg/dL (9-20); CHLORIDE 105 mmol/L (98-107); Calcium 8.6 mg/dL (8.4-10.2); Carbon Dioxide 30 mmol/L (22-30); Creatinine 1 0.93 mg/dL (0.66-1.25); EST GLOMERULAR FILTRATION RATE > 60.0 ML/MIN; Glucose 177 mg/dL (74-106); Potassium 3.3 mmol/L (3.5-5.1); SODIUM 140 mmol/L (137-145)
[2022-03-15 07:12] VITALS: BP 120/95; PULSE 86; O2SAT 95
--- NOTE | 2022-03-15 08:25 | PCM.DS ---
Discharge Summary Date of Admission: 03/11/22 20:29 Admitting Physician: IRVING HENRY Primary Care Provider: IRVING HENRY Allergies Allergies No Known Drug Allergies Allergy (Verified 03/11/22 17:46) Hospital Summary - Hospital Course Hospital Course: patient admitted with chf exacerbation and new onset a fib with rvr, rate is controlled on po cardizem, started on eliquis, he has diuresed well, still on 2L oxygen. he is obese and has poor functional status at baseline - Vitals & Intake/Output Vital Signs: Vital Signs Temperature 98.0 F 03/15/22 07:10 Pulse Rate 86 03/15/22 07:10 Respiratory Rate 16 03/15/22 07:10 Blood Pressure 120/95 03/15/22 07:10 O2 Sat by Pulse Oximetry 95 03/15/22 07:10 Intake & Output: Intake & Output 03/12/22 03/13/22 03/14/22 03/15/22 11:59 11:59 11:59 11:59 Intake Total 720 1560 1400 540 Output Total 2450 3450 2600 700 Balance -1730 -1890 -1200 -160 Weight 129.2 kg 130.2 kg 131.3 kg 130.2 kg - Lab Result Diagrams: 03/15/22 04:15 03/15/22 04:15 Lab Results-Last 24 Hrs: Lab Results-Last 24 Hours 03/14/22 03/14/22 03/14/22 Range/Units 11:52 17:03 21:32 WBC (4.0-10.5) x10^3/uL RBC (4.1-5.6) x10^6/uL Hgb (12.5-18.0) g/dL Hct (42-50) % MCV (78-100) fL MCH (26-32) pg MCHC (32-36) g/dL RDW (11.5-14.0) % Plt Count (150-450) x10^3/uL MPV (7.5-11.0) fL Sodium (137-145) mmol/L Potassium (3.5-5.1) mmol/L Chloride (98-107) mmol/L Carbon Dioxide (22-30) mmol/L Anion Gap (5-15) MEQ/L BUN (9-20) mg/dL Creatinine (0.66-1.25) mg/dL Estimated GFR ML/MIN Glucose (74-106) mg/dL POC Glucometer 246 H 194 H 266 H (74 to 106) mg/dL Calcium (8.4-10.2) mg/dL 03/15/22 03/15/22 03/15/22 Range/Units 04:15 04:15 07:38 WBC 7.8 (4.0-10.5) x10^3/uL RBC 5.13 (4.1-5.6) x10^6/uL Hgb 14.5 (12.5-18.0) g/dL Hct 45.9 (42-50) % MCV 89.5 (78-100) fL MCH 28.3 (26-32) pg MCHC 31.6 L (32-36) g/dL RDW 15.0 H (11.5-14.0) % Plt Count 227 (150-450) x10^3/uL MPV 11.5 H (7.5-11.0) fL Sodium 140 (137-145) mmol/L Potassium 3.3 L (3.5-5.1) mmol/L Chloride 105 (98-107) mmol/L Carbon Dioxide 30 (22-30) mmol/L Anion Gap 8.4 (5-15) MEQ/L BUN 19 (9-20) mg/dL Creatinine 0.93 (0.66-1.25) mg/dL Estimated GFR > 60.0 ML/MIN Glucose 177 H (74-106) mg/dL POC Glucometer 160 H (74 to 106) mg/dL Calcium 8.6 (8.4-10.2) mg/dL Micro Results-Entire Visit: Microbiology 03/11/22 18:10 Blood Culture - Preliminary Blood NO GROWTH TO DATE 03/11/22 18:10 Blood Culture - Preliminary Blood NO GROWTH TO DATE Accuchecks Date 03/15/22 Time 07:45 - Procedures and Test Procedures and Tests throughout Hospitalization: Therapy Orders & Screens 03/11/22 17:52 Respiratory Therapy Assessment DAILY Comment: 03/11/22 20:30 Oxygen Nasal Cannula 2 lpm Comment: 03/11/22 20:56 Smoking Cessation Education ONCE Comment: Diagnosis: Shortness of breath, Afib, NSTEMI Smoking Status: Current every day smoker Have you smoked in the past 12 months: Yes Do you dip or chew tobacco: No 03/15/22 08:17 Qualify for Home Oxygen TODAY Comment: Diagnosis: AFIB W/RVR, NSTEMI, SOB Discharge Exam General Appearance: no apparent distress, obese Respiratory Exam: normal breath sounds, lungs clear, No respiratory distress Cardiovascular Exam: irregular Gastrointestinal/Abdomen Exam: soft, No tenderness, No mass Extremity Exam: normal inspection, normal range of motion Skin Exam: normal color, warm, dry Wound Assessment: Skin/Wound Assessment Wound/Incision Assessment Start: 03/11/22 20:56 Text: Status: Active Freq: Q6H Protocol: Document 03/15/22 02:00 RB (Rec: 03/15/22 05:15 RB [id number]) Wound/Incision Assessment Left Medial Ankle Wound Assessment Shift Assessment Wound Type scabbed area Drainage Amount None Drainage Odor None/Absent General Appearance Well Approximated,Open to air Right Medial Ankle Wound Assessment Shift Assessment Wound Type scabbed area Drainage Amount None General Appearance Well Approximated,Open to air Surrounding Tissue Edematous Final Diagnosis/Problem List - Final Discharge Diagnosis/Problem (1) Acute CHF (congestive heart failure) Current Visit: Yes Status: Acute Assessment & Plan: home on po lasix, euvolemic at this time. Code(s): I50.9 - HEART FAILURE, UNSPECIFIED (2) Atrial fibrillation with RVR Current Visit: Yes Status: Acute Assessment & Plan: continue current meds including po cardizem and eliquis, will f/u with Dr Daniels after discharge Code(s): I48.91 - UNSPECIFIED ATRIAL FIBRILLATION (3) Elevated troponin Current Visit: Yes Status: Resolved Code(s): R77.8 - OTHER SPECIFIED ABNORMALITIES OF PLASMA PROTEINS (4) DM (diabetes mellitus) Current Visit: No Status: Acute Code(s): E11.9 - TYPE 2 DIABETES MELLITUS WITHOUT COMPLICATIONS - Discharge Disposition: Home, Self-Care Condition: Stable Prescriptions: New Diltiazem HCl Cd [Cardizem CD ] 120 mg PO DAILY #30 cap Apixaban [Eliquis 2.5 mg Tablet] 2.5 mg PO BID #60 tablet Furosemide 20 mg [Lasix 20 mg] 20 mg PO DAILY #30 tablet Potassium Chloride 10 meq PO DAILY #30 tab Continue Gabapentin [Neurontin] 600 mg PO BID Atorvastatin Calcium [Lipitor 20MG Tablet] 20 mg PO HS Duloxetine HCl 30 mg [Cymbalta 30 MG Capsule] 60 mg PO DAILY Benazepril HCl 40 mg PO DAILY Hydralazine HCl 50 mg PO BID Metoprolol Tartrate 50 mg PO BID Metformin HCl 1000 mg [Glucophage 1000 MG] 1,000 mg PO BID Empagliflozin [Jardiance] 25 mg PO DAILY Trazodone HCl 100 mg PO HS PRN PRN Reason: Insomnia Tamsulosin HCl 0.4 mg [Flomax 0.4 MG] 0.4 mg PO HS Ammonium Lactate [Ammonium Lactate 12%] 1 applic TP HS Changed Insulin Detemir [Levemir] 15 unit SQ HS #1 unit Discontinued Amlodipine Besylate 5 mg [Norvasc 5 mg] 5 mg PO DAILY Glipizide 10 mg [Glucotrol 10 MG] 5 mg PO DAILY Insulin Lispro [Admelog Solostar] 25 units SQ BID Follow up with: IRVING HENRY MD [Primary Care Provider] - 1 Week CHERI DANIELS [CONSULTING PHYSICIAN] - 1 Week
[2022-03-15] MEDS: Lotensin PO SCH (09:08)
[2022-03-15] MEDS: Cardizem CD PO SCH (09:08)
[2022-03-15] MEDS: Cymbalta 30 MG Capsule PO SCH (09:08)
[2022-03-15] MEDS: Apresoline 25 MG TABLET PO SCH (09:08)
[2022-03-15] MEDS: NEURONTIN PO SCH (09:08)
[2022-03-15] MEDS: Klor Con PO SCH (09:08)
[2022-03-15] MEDS: ELIQUIS 2.5 MG TABLET PO SCH (09:09)
[2022-03-15] MEDS: PROTONIX 40 MG IV IV SCH (09:09)
[2022-03-15] MEDS: Lopressor 50 MG PO SCH (09:09)
[2022-03-15] MEDS: Lasix 20 MG/2 ML IV SCH (09:10)
--- NOTE | 2022-03-16 13:06 | ECHO ---
DATE OF PROCEDURE: 03/12/2022 CLINICAL INFORMATION: Congestive heart failure. The M-mode 2D, and Doppler echocardiogram including color flow Doppler are technically difficult due to the patient's labored breathing. The left ventricle was dilated with a dimension of 6.1 cm. There is no thrombus present. The wall thickness is normal. The left ventricular systolic function is at the lower limits of normal. The ejection fraction is calculated to be 53%. The right ventricle is not well visualized. The left atrium is mildly dilated with a dimension of 4.7 cm. The interatrial septum is intact. The right atrium is normal. The aortic valve opens well. It is trileaflet. There is mild aortic regurgitation. There is mitral valve leaflet thickening associated with moderate mitral regurgitation. There is mild tricuspid regurgitation. The right ventricular systolic pressure is calculated to be 39 mm of [place]. There is mild pulmonic regurgitation. The pulmonic valve is not well visualized. The aortic root is dilated at 3.9 cm. There is no pericardial effusion present. IMPRESSION: 1) LOW NORMAL LEFT VENTRICULAR SYSTOLIC FUNCTION. 2) ATRIAL FIBRILLATION. 3) MODERATE MITRAL REGURGITATION. 4) MILD TRICUSPID REGURGITATION. 5) MILD PULMONARY HYPERTENSION. 6) MILD AORTIC REGURGITATION. 7) MILD PULMONIC REGURGITATION. 8) TECHNICALLY DIFFICULT ECHOCARDIOGRAM. 9) DILATED LEFT VENTRICLE. 10) DILATED LEFT ATRIUM.
== END 2022-03-15 11:35 | disposition home or self-care (01) ==
LOC: ED 17:29 → INTOOBSV 20:29 → ICU 20:29 → MED SURG 03-12 13:35
PROVIDERS: ADMIT Family Medicine; ATTEND Family Medicine
DX: I11.0 Hypertensive heart disease with heart failure (principal); I50.9 Heart failure, unspecified; I48.20 Chronic atrial fibrillation, unspecified; R77.8 Other specified abnormalities of plasma proteins; E11.42 Type 2 diabetes mellitus with diabetic polyneuropathy; I25.10 Atherosclerotic heart disease of native coronary artery without angina pectoris; G62.9 Polyneuropathy, unspecified; R31.0 Gross hematuria; E16.2 Hypoglycemia, unspecified; S90.512A Abrasion, left ankle, initial encounter; S90.511A Abrasion, right ankle, initial encounter; Z79.01 Long term (current) use of anticoagulants; Z79.899 Other long term (current) drug therapy; Z20.828 Contact with and (suspected) exposure to other viral communicable diseases; Z72.0 Tobacco use; Z79.4 Long term (current) use of insulin
CPT/HCPCS: 0241U; 36000; 36415; 51702; 71045; 71260; 80048; 80053; 82550; 82947; 83605; 83735; 83880; 84132; 84484; 85025; 85027; 87040; 93005; 93041; 93268; 93306; 94640; 94760; 94762; 96365; 96366; 96367; 96372; 96374; 96375; 99285; 99291; G0378; P9612; J0456; J0696; J1650; J1817; J1940; J2270; J2405; J3480; A9270-GY

== ENCOUNTER 2022-08-30 16:04 | Observation (INO) | payer OTHER ==
[2022-08-30] MEDS ORDERED: DUONEB 0.5-3 MG/3 ml Neb IH ONE ×2 (16:06→16:11)
[2022-08-30] MEDS ORDERED: Lasix 40 MG/4 ML IV ONE (16:06)
[2022-08-30] MEDS ORDERED: Lasix 40 MG/4 ML ONE (16:08)
[2022-08-30 16:29] LABS: Absolute Neutrophil Ct (ANC) 7.52 x10^3/uL (1.4-6.9); Basophil (Absolute #) 0.07 x10^3/uL (0-0.4); Eosinophil % 0.7 % (0.00-5.0); Eosinophil (Absolute #) 0.07 x10^3/uL (0-0.5); Hematocrit 52.3 % (42-50); Hemoglobin 16.4 g/dL (12.5-18.0); Lymphocyte (Absolute #) 1.43 x10^3/uL (1.0-4.6); Lymphocytes % 14.7 % (24.0-44.0); Mean Cell Volume 87.6 fL (78-100); Mean Corpuscular Hemoglobin 27.5 pg (26-32); Mean Corpuscular Hgb Concent. 31.4 g/dL (32-36); Mean Platelet Volume 11.5 fL (7.5-11.0); Monocytes % 6.2 % (0.0-12.0); Neutrophil % 77.5 % (36.0-66.0); Platelet Count 213 x10^3/uL (150-450); Red Blood Count 5.97 x10^6/uL (4.1-5.6); Red Cell Distribution Width 18.4 % (11.5-14.0); White Blood Count 9.7 x10^3/uL (4.0-10.5)
--- NOTE | 2022-08-30 16:39 | XRAY ---
Indication: Dyspnea. Comparison: March 11, 2022 Portable chest demonstrates new subtle patchy bilateral air space disease without consolidation/large effusion. Again incidental tiny calcified granulomas. Heart remains enlarged. Bony thorax intact.
[2022-08-30 16:46] LABS: INR 1.3 (0.8-3.0); PROTIME 13.5 SECONDS (9.4-12.5); PTT 33.4 SECONDS (25.1-36.5)
[2022-08-30 16:50] LABS: ALBUMIN 3.4 g/dL (3.5-5.0); ALKALINE PHOSPHATASE 278 U/L (38-126); ANION GAP 6.8 MEQ/L (5-15); BLOOD UREA NITROGEN 21 mg/dL (9-20); CHLORIDE 95 mmol/L (98-107); Calcium 8.1 mg/dL (8.4-10.2); Carbon Dioxide 38 mmol/L (22-30); Creatinine 1 0.84 mg/dL (0.66-1.25); EST GLOMERULAR FILTRATION RATE > 60.0 ML/MIN; Glucose 309 mg/dL (74-106); MAGNESIUM 1.7 mg/dL (1.6-2.3); NT PRO BNP 4770 pg/mL (0-900); SGOT/AST 52 U/L (17-59); SGPT/ALT 35 U/L (0-50); SODIUM 137 mmol/L (137-145); Total Protein 7.3 g/dL (6.3-8.2)
[2022-08-30 16:55] LABS: Potassium 2.7 mmol/L (3.5-5.1)
--- NOTE | 2022-08-30 17:08 | ERPHSYRPT ---
- History of Present Illness Source: patient Exam Limitations: other (Poor historian) Patient Subjective Stated Complaint: PT HERE FOR INCREASE SOB FOR COUPLE WEEKS NOW WORSE LAST COUPLE DAYS, Triage Nursing Assessment: PT ALERT,RESP LABORED, FACE MASK IN PLACE, HAS CONGES HENNA SOUNDING COUGH,NONPRODUCTIVE, SWELLING TO LOWER LEGS,ABD ROUND AND DISTENDED Physician History: 62 yo wm who is a very poor historian presents w labored respirations in mild distress. Pt has a h/o HTN/hyperlipidemia/DM/CHF/Afib per chart review. He states that he has been getting dyspneic x1wk which is worse when lying flat. Pt does have a mild cough but denies coryza/fever/N/V/D/melena/hematochezia. He denies any chest pain. Timing/Duration: other (1week) Activities at Onset: rest Severity of Dyspnea-Max: severe Severity of Dyspnea-Current: moderate Possible Cause: occasional episodes Modifying Factors: Improves With: activity Associated Symptoms: No chest pain/discomfort Allergies/Adverse Reactions: No Known Drug Allergies Allergy (Verified 08/30/22 16:06) Home Medications: Atorvastatin Calcium [Lipitor 20MG Tablet] 20 mg PO HS 08/12/16 [History] Benazepril HCl 40 mg PO DAILY 08/12/16 [History] Duloxetine HCl 30 mg [Cymbalta 30 MG Capsule] 60 mg PO DAILY 08/12/16 [History] Empagliflozin [Jardiance] 25 mg PO DAILY 08/12/16 [History] Gabapentin [Neurontin] 600 mg PO BID 08/12/16 [History] Hydralazine HCl 50 mg PO BID 08/12/16 [History] Metformin HCl 1000 mg [Glucophage 1000 MG] 1,000 mg PO BID 08/12/16 [History] Metoprolol Tartrate 50 mg PO BID 08/12/16 [History] Trazodone HCl 100 mg PO HS PRN 08/12/16 [History] Ammonium Lactate [Ammonium Lactate 12%] 1 applic TP HS 03/11/22 [History] Tamsulosin HCl 0.4 mg [Flomax 0.4 MG] 0.4 mg PO HS 03/11/22 [History] Hx Tetanus, Diphtheria Vaccination/Date Given: No Hx Influenza Vaccination/Date Given: No Hx Pneumococcal Vaccination/Date Given: No Immunizations Up to Date: Yes Travel Risk - International Travel Have you traveled outside of the country in past 3 weeks: No - Coronavirus Screening Are you exhibiting any of the following symptoms?: Yes Symptoms: Cough: New Onset, Shortness of Breath Close contact with a COVID-19 positive Pt in past 14-21 Days: No - Vaccine Status Have you recieved a Covid-19 vaccination: No - Review of Systems Constitutional: No Symptoms, Malaise Eyes: No Symptoms Ears, Nose, & Throat: No Symptoms Respiratory: No Symptoms, Cough, Dyspnea Cardiac: No Symptoms Abdominal/Gastrointestinal: No Symptoms Genitourinary Symptoms: No Symptoms Musculoskeletal: No Symptoms Skin: No Symptoms Neurological: No Symptoms Psychological: No Symptoms Endocrine: No Symptoms Hematologic/Lymphatic: No Symptoms Immunological/Allergic: No Symptoms - Past Medical History Pertinent Past Medical History: Yes Neurological History: TIA ENT History: Other Cardiac History: Arrhythmia, High Cholesterol, Hypertension, Other Respiratory History: No Pertinent History Endocrine Medical History: Diabetes Type II Musculoskeletal History: No Pertinent History GI Medical History: No Pertinent History History: No Pertinent History Psycho-Social History: Anxiety, Depression Male Reproductive Disorders: No Pertinent History Other Medical History: pt states vision is blurry- may have mac deg. Has been told his heart is enlarged. - Past Surgical History Past Surgical History: Yes Musculoskeletal: Orthopedic Surgery Other Surgical History: shoulder - Social History Smoking Status: Current some day smoker Exposure to second hand smoke: Yes Drug Use: none Patient Lives Alone: Yes Significant Family History: no pertinent family hx - Nursing Vital Signs Nursing Vital Signs: Initial Vital Signs Temperature 97.7 F 08/30/22 16:05 Pulse Rate 98 H 08/30/22 16:05 Respiratory Rate 30 H 08/30/22 16:05 Blood Pressure 140/109 08/30/22 16:05 O2 Sat by Pulse Oximetry 94 L 08/30/22 16:05 Pain Scale Pain Intensity 0 Tachypneic/hypertensive - Physical Exam General Appearance: mild distress Eye Exam: PERRL/EOMI, eyes nml inspection Ears, Nose, Throat Exam: hearing grossly normal, normal ENT inspection, normal pharynx, abnormal TM (R) Neck Exam: normal inspection, non-tender, supple, full range of motion, No Brudzinski, No Kernig's, No meningismus Respiratory Exam: crackles/rales (Scattered rales and wheezes B) Cardiovascular/Chest Exam: tachycardia, No murmur Abdominal/Gastrointestinal Exam: soft, normal bowel sounds, No tenderness Extremity Exam: pedal edema (2+B) Neurologic Exam: alert, oriented x 3, cooperative, tank hoop bender II-XII nml as tested, normal mood/affect Skin Exam: normal color, warm, dry, No rash Lymphatic Exam: No adenopathy SpO2 Interpretation: normal, borderline oxygenation SpO2: 99 O2 Delivery: Room Air - Course Nursing assessment & vital signs reviewed: Yes EKG Interpreted by Me: RATE (Afib/Prolonged QTc/LVH/Inferior Qwaves/Poor Rwave progression) - Radiology Exams Chest X-ray Interpretation: Discussed w/ radiologist (Cardiomegaly, bilateral patchy airspace disease) - CT Exams Chest CT Interpretation: Discussed w/radiologist (Diffuse pneumonia) Ordered Tests: Active Orders 24 hr Category Date Time Status Catheter-Center [place] STAT Care 08/30/22 18:23 Completed EKG-ER Only STAT Care 08/30/22 16:06 Completed Clear Liquid Diet 08/31/22 Breakfast Active CHEST 1 VIEW (PORTABLE) Stat Exams 08/30/22 16:07 Completed CHEST WITHOUT CONTRAST [CT] Stat Exams 08/30/22 17:10 Taken ABG [ARTERIAL BLOOD GASES] Stat Lab 08/30/22 18:32 Completed BLOOD CULTURE Stat Lab 08/30/22 18:10 Received CBC W DIFF AM.LAB Lab 08/31/22 04:00 Ordered CBC W DIFF Stat Lab 08/30/22 16:18 Completed CMP AM.LAB Lab 08/31/22 04:00 Ordered CMP Stat Lab 08/30/22 16:18 Completed Lactic Acid AM.LAB Lab 08/31/22 04:00 Ordered Lactic Acid Stat Lab 08/30/22 16:31 Completed Lactic Acid Stat Lab 08/30/22 18:45 Completed MAGNESIUM Stat Lab 08/30/22 16:18 Completed NT PRO BNP Stat Lab 08/30/22 16:18 Completed PROTIME WITH INR Stat Lab 08/30/22 16:18 Completed PTT Stat Lab 08/30/22 16:18 Completed TROPONIN Q4H Lab 08/30/22 16:18 Completed TROPONIN Q4H Lab 08/30/22 18:55 Completed TROPONIN Q4H Lab 08/31/22 00:15 Ordered Transfer Order Routine Transfer 08/30/22 Completed Medication Summary Generic Name Dose Route Start Last Admin Trade Name Bassem PRN Reason Stop Dose Admin Albuterol/Ipratropium 3 ml 08/30/22 23:00 Ipratropium/Albuterol Sulfate 3 Ml Ampul.Neb 09/29/22 22:59 Q4HRT KALLIE Sodium Chloride 1,000 mls @ 100 mls/hr 08/30/22 20:00 08/30/22 21:51 Sodium Chloride 0.9% 1000 Ml IV 09/29/22 19:59 100 mls/hr .Q10H KALLIE Administration Ceftriaxone Sodium/Dextrose 1 g in 50 mls @ 100 mls/hr 08/31/22 10:00 Rocephin 1 Gm-D5w 50 Ml Bag IV 09/03/22 09:59 Q24H10 KALLIE Azithromycin 500 mg in 250 mls @ 250 mls/hr 08/31/22 10:00 Zithromax 500 Mg/ 250 Ml Nacl Premix IV 09/30/22 09:59 Q24H10 [facility] Insulin Human Lispro 0 unit 08/30/22 20:00 Insulin Lispro 1 Unit SQ 09/29/22 19:59 UD PRN HYPERGLYCEMIA Ondansetron HCl 4 mg 08/30/22 20:00 Ondansetron Hcl 4 Mg/2 Ml Vial IV 09/29/22 19:59 Q6H PRN PRN NAUSEA/VOMITING Pantoprazole Sodium 40 mg 08/31/22 10:00 Pantoprazole 40 Mg Vial IV 09/30/22 09:59 Q24H10 [facility] Discontinued Medications Generic Name Dose Route Start Last Admin Trade Name Bassem PRN Reason Stop Dose Admin Albuterol/Ipratropium 3 ml 08/30/22 16:06 08/30/22 16:15 Ipratropium/Albuterol Sulfate 3 Ml Ampul.Neb IH 08/30/22 16:07 3 ml STAT ONE Administration Albuterol/Ipratropium Confirm 08/30/22 16:11 Ipratropium/Albuterol Sulfate 3 Ml Ampul.Neb Administered 08/30/22 16:12 Dose 3 ml IH .STK-MED ONE Aspirin 324 mg 08/30/22 17:14 08/30/22 17:16 Aspirin 81 Mg Tab.Chew PO 08/30/22 17:15 324 mg STAT ONE Administration Furosemide 40 mg 08/30/22 16:06 08/30/22 16:09 Furosemide 40 Mg/4 Ml Vial IV 08/30/22 16:07 40 mg STAT ONE Administration Furosemide Confirm 08/30/22 16:08 Furosemide 40 Mg/4 Ml Vial Administered 08/30/22 16:09 Dose 40 mg .ROUTE .STK-MED ONE Ceftriaxone Sodium/Dextrose 1 g in 50 mls @ 100 mls/hr 08/30/22 17:56 08/30/22 18:36 Rocephin 1 Gm-D5w 50 Ml Bag IV 08/30/22 18:25 Infused STAT STA Infusion Ceftriaxone Sodium/Dextrose Confirm 08/30/22 18:02 Rocephin 1 Gm-D5w 50 Ml Bag Administered 08/30/22 18:03 Dose 1 g in 50 mls @ ud IV .STK-MED ONE Sodium Chloride 1,000 mls @ 999 mls/hr 08/30/22 18:21 08/30/22 19:34 Sodium Chloride 0.9% 1000 Ml IV 08/30/22 19:21 Infused .Q1H1M STA Infusion Sodium Chloride Confirm 08/30/22 18:23 Sodium Chloride 0.9% 1000 Ml Administered 08/30/22 18:24 Dose 1,000 mls @ ud .ROUTE .STK-MED ONE Azithromycin 500 mg in 250 mls @ 250 mls/hr 08/30/22 20:04 08/30/22 21:08 Zithromax 500 Mg/ 250 Ml Nacl Premix IV 08/30/22 21:03 Infused STAT STA Infusion Azithromycin Confirm 08/30/22 20:06 Zithromax 500 Mg/ 250 Ml Nacl Premix Administered 08/30/22 20:07 Dose 500 mg in 250 mls @ ud IV .STK-MED ONE Lab/Rad Data: Laboratory Result Diagrams 08/30/22 16:18 08/30/22 16:18 Laboratory Results 08/30/22 08/30/22 08/30/22 Range/Units 18:55 18:45 18:32 WBC (4.0-10.5) x10^3/uL RBC (4.1-5.6) x10^6/uL Hgb (12.5-18.0) g/dL Hct (42-50) % MCV (78-100) fL MCH (26-32) pg MCHC (32-36) g/dL RDW (11.5-14.0) % Plt Count (150-450) x10^3/uL MPV (7.5-11.0) fL Gran % (36.0-66.0) % Immature Gran % (Auto) (0.00-0.4) % Nucleat RBC Rel Count (0.00-0.1) % Eos # (Auto) (0-0.5) x10^3/uL Immature Gran # (Auto) (0.00-0.03) x10^3u/L Absolute Lymphs (auto) (1.0-4.6) x10^3/uL Absolute Monos (auto) (0.0-1.3) x10^3/uL Absolute Nucleated RBC (0.00-0.01) x10^3u/L Lymphocytes % (24.0-44.0) % Monocytes % (0.0-12.0) % Eosinophils % (0.00-5.0) % Basophils % (0.0-0.4) % Absolute Granulocytes (1.4-6.9) x10^3/uL Basophils # (0-0.4) x10^3/uL PT (9.4-12.5) SECONDS INR (0.8-3.0) APTT (25.1-36.5) SECONDS Puncture Site RIGHT BRACHIAL pCO2 43 (35-45) mmHg pO2 67 L (75-100) mmHg Base Excess 10.9 H (-2.0-2.0) O2 Saturation 92.6 L (94-100) g/dF ABG pH 7.52 H (7.35-7.45) ABG HCO3 35.1 H* (22-28) ABG O2 Sat (Measured) 95.0 (95-100) % Phil Test NOT APPLICABLE A-a Gradient 29 a/A Ratio 0.70 Hemoglobin 14.9 Carboxyhemoglobin 2.0 (0.0-6.9) % THgb Methemoglobin 0.5 L (1.4-1.5) % Temperature 37.0 C POC O2 Flow Rate 21 % Sodium (137-145) mmol/L Potassium 2.6 L* (3.5-5.1) mmol/L Chloride (98-107) mmol/L Carbon Dioxide (22-30) mmol/L Anion Gap (5-15) MEQ/L BUN (9-20) mg/dL Creatinine (0.66-1.25) mg/dL Estimated GFR ML/MIN Glucose (74-106) mg/dL Lactic Acid 1.9 (0.4-2.0) Calcium (8.4-10.2) mg/dL Magnesium (1.6-2.3) mg/dL Total Bilirubin (0.2-1.3) mg/dL AST (17-59) U/L ALT (0-50) U/L Alkaline Phosphatase (38-126) U/L Troponin I 0.066 H* (0.000-0.034) ng/mL NT-Pro-B Natriuret Pep (0-900) pg/mL Serum Total Protein (6.3-8.2) g/dL Albumin (3.5-5.0) g/dL Influenza Type A Ag (NEGATIVE) Influenza Type B Ag (NEGATIVE) RSV (PCR) (Negative) SARS-CoV-2 (PCR) (NEGATIVE) 08/30/22 08/30/22 08/30/22 Range/Units 16:31 16:18 16:18 WBC (4.0-10.5) x10^3/uL RBC (4.1-5.6) x10^6/uL Hgb (12.5-18.0) g/dL Hct (42-50) % MCV (78-100) fL MCH (26-32) pg MCHC (32-36) g/dL RDW (11.5-14.0) % Plt Count (150-450) x10^3/uL MPV (7.5-11.0) fL Gran % (36.0-66.0) % Immature Gran % (Auto) (0.00-0.4) % Nucleat RBC Rel Count (0.00-0.1) % Eos # (Auto) (0-0.5) x10^3/uL Immature Gran # (Auto) (0.00-0.03) x10^3u/L Absolute Lymphs (auto) (1.0-4.6) x10^3/uL Absolute Monos (auto) (0.0-1.3) x10^3/uL Absolute Nucleated RBC (0.00-0.01) x10^3u/L Lymphocytes % (24.0-44.0) % Monocytes % (0.0-12.0) % Eosinophils % (0.00-5.0) % Basophils % (0.0-0.4) % Absolute Granulocytes (1.4-6.9) x10^3/uL Basophils # (0-0.4) x10^3/uL PT (9.4-12.5) SECONDS INR (0.8-3.0) APTT (25.1-36.5) SECONDS Puncture Site pCO2 (35-45) mmHg pO2 (75-100) mmHg Base Excess (-2.0-2.0) O2 Saturation (94-100) g/dF ABG pH (7.35-7.45) ABG HCO3 (22-28) ABG O2 Sat (Measured) (95-100) % Phil Test A-a Gradient a/A Ratio Hemoglobin Carboxyhemoglobin (0.0-6.9) % THgb Methemoglobin (1.4-1.5) % Temperature C POC O2 Flow Rate % Sodium (137-145) mmol/L Potassium (3.5-5.1) mmol/L Chloride (98-107) mmol/L Carbon Dioxide (22-30) mmol/L Anion Gap (5-15) MEQ/L BUN (9-20) mg/dL Creatinine (0.66-1.25) mg/dL Estimated GFR ML/MIN Glucose (74-106) mg/dL Lactic Acid 3.3 H (0.4-2.0) Calcium (8.4-10.2) mg/dL Magnesium (1.6-2.3) mg/dL Total Bilirubin (0.2-1.3) mg/dL AST (17-59) U/L ALT (0-50) U/L Alkaline Phosphatase (38-126) U/L Troponin I 0.081 H* (0.000-0.034) ng/mL NT-Pro-B Natriuret Pep (0-900) pg/mL Serum Total Protein (6.3-8.2) g/dL Albumin (3.5-5.0) g/dL Influenza Type A Ag NEGATIVE (NEGATIVE) Influenza Type B Ag NEGATIVE (NEGATIVE) RSV (PCR) POSITIVE (Negative) SARS-CoV-2 (PCR) NEGATIVE (NEGATIVE) 08/30/22 08/30/22 08/30/22 Range/Units 16:18 16:18 16:18 WBC 9.7 (4.0-10.5) x10^3/uL RBC 5.97 H (4.1-5.6) x10^6/uL Hgb 16.4 (12.5-18.0) g/dL Hct 52.3 H (42-50) % MCV 87.6 (78-100) fL MCH 27.5 (26-32) pg MCHC 31.4 L (32-36) g/dL RDW 18.4 H (11.5-14.0) % Plt Count 213 (150-450) x10^3/uL MPV 11.5 H (7.5-11.0) fL Gran % 77.5 H (36.0-66.0) % Immature Gran % (Auto) 0.2 (0.00-0.4) % Nucleat RBC Rel Count 0.0 (0.00-0.1) % Eos # (Auto) 0.07 (0-0.5) x10^3/uL Immature Gran # (Auto) 0.02 (0.00-0.03) x10^3u/L Absolute Lymphs (auto) 1.43 (1.0-4.6) x10^3/uL Absolute Monos (auto) 0.60 (0.0-1.3) x10^3/uL Absolute Nucleated RBC 0.00 (0.00-0.01) x10^3u/L Lymphocytes % 14.7 L (24.0-44.0) % Monocytes % 6.2 (0.0-12.0) % Eosinophils % 0.7 (0.00-5.0) % Basophils % 0.7 (0.0-0.4) % Absolute Granulocytes 7.52 H (1.4-6.9) x10^3/uL Basophils # 0.07 (0-0.4) x10^3/uL PT 13.5 H (9.4-12.5) SECONDS INR 1.30 (0.8-3.0) APTT 33.4 (25.1-36.5) SECONDS Puncture Site pCO2 (35-45) mmHg pO2 (75-100) mmHg Base Excess (-2.0-2.0) O2 Saturation (94-100) g/dF ABG pH (7.35-7.45) ABG HCO3 (22-28) ABG O2 Sat (Measured) (95-100) % Phil Test A-a Gradient a/A Ratio Hemoglobin Carboxyhemoglobin (0.0-6.9) % THgb Methemoglobin (1.4-1.5) % Temperature C POC O2 Flow Rate % Sodium 137 (137-145) mmol/L Potassium 2.7 L* (3.5-5.1) mmol/L Chloride 95 L (98-107) mmol/L Carbon Dioxide 38 H (22-30) mmol/L Anion Gap 6.8 (5-15) MEQ/L BUN 21 H (9-20) mg/dL Creatinine 0.84 (0.66-1.25) mg/dL Estimated GFR > 60.0 ML/MIN Glucose 309 H (74-106) mg/dL Lactic Acid (0.4-2.0) Calcium 8.1 L (8.4-10.2) mg/dL Magnesium 1.7 (1.6-2.3) mg/dL Total Bilirubin 1.40 H (0.2-1.3) mg/dL AST 52 (17-59) U/L ALT 35 (0-50) U/L Alkaline Phosphatase 278 H (38-126) U/L Troponin I (0.000-0.034) ng/mL NT-Pro-B Natriuret Pep 4770 H (0-900) pg/mL Serum Total Protein 7.3 (6.3-8.2) g/dL Albumin 3.4 L (3.5-5.0) g/dL Influenza Type A Ag (NEGATIVE) Influenza Type B Ag (NEGATIVE) RSV (PCR) (Negative) SARS-CoV-2 (PCR) (NEGATIVE) - Progress Progress: improved Air Movement: fair Progress Note: 08/30/22 19:[address] Morris per Dr. Arenas 08/30/22 22:06 40mg IV Lasix upon arrival Duoneb upon arrival Repeat Duoneb Blood cultures x2 08/30/22 22:07 1gm IV Rocephin Discussed with DrYeimy: Claire Counseled pt/family regarding: lab results, diagnosis, need for follow-up, rad results - Departure Departure Disposition: Observation Clinical Impression: Pneumonia, RSV (acute bronchiolitis due to respiratory syncytial virus) Condition: Stable Critical Care Time: Yes Critical Care Time(excluding separately billable procedures): Critical 30-74 mins
[2022-08-30] MEDS ORDERED: BABY ASPIRIN 81 MG CHEW PO ONE (17:14)
[2022-08-30 17:29] LABS: INFLUENZA A NEGATIVE (NEGATIVE); INFLUENZA B NEGATIVE (NEGATIVE); SARS-CoV-2 Xpert Express NEGATIVE (NEGATIVE)
[2022-08-30 17:31] LABS: RESPIRATORY SYNCTIAL VIRUS POSITIVE (Negative)
[2022-08-30] MEDS ORDERED: ROCEPHIN 1 Gm-D5w 50 ml Bag** 1 G/50 ML IVPB IV STA (17:56)
[2022-08-30] MEDS ORDERED: ROCEPHIN 1 Gm-D5w 50 ml Bag** 1 G/50 ML IVPB IV ONE (18:02)
[2022-08-30] MEDS ORDERED: Sodium Chloride 0.9% 1000 ML 1,000 ML IV STA (18:21)
[2022-08-30] MEDS ORDERED: Sodium Chloride 0.9% 1000 ML 1,000 ML ONE (18:23)
[2022-08-30 18:37] LABS: A-aADO2 29; ABG HEMOGLOBIN 14.9; ARTERIAL BLOOD GAS BASE EXCESS 10.9 (-2.0-2.0); ARTERIAL BLOOD GAS FIO2 21 %; ARTERIAL BLOOD GAS PCO2 43 mmHg (35-45); ARTERIAL BLOOD GAS PO2 67 mmHg (75-100); ARTERIAL BLOOD GAS pH 7.52 (7.35-7.45); HCO3- 35.1 (22-28); HGB O2 SAT 92.6 g/dF (94-100); Methhemoglobin 0.5 % (1.4-1.5)
[2022-08-30 18:38] LABS: ABG POTASSIUM 2.6 (3.5-5.1); ABG SITE RIGHT BRACHIAL
[2022-08-30] MEDS ORDERED: Zofran 4 MG/2 ML VIAL IV PRN (20:00)
[2022-08-30] MEDS ORDERED: Zithromax 500 MG/ 250 ML NaCl Premix 500 MG/250 ML IVPB IV STA (20:04)
[2022-08-30] MEDS ORDERED: Zithromax 500 MG/ 250 ML NaCl Premix 500 MG/250 ML IVPB IV ONE (20:06)
[2022-08-30] MEDS: Sodium Chloride 0.9% 1000 ML 1,000 ML IV SCH (21:51)
[2022-08-30] MEDS ORDERED: DUONEB 0.5-3 MG/3 ml Neb IH SCH (23:00)
[2022-08-31] MEDS: Klor Con PO SCH ×4 (01:09→22:15)
[2022-08-31] MEDS: DUONEB 0.5-3 MG/3 ml Neb IH SCH ×4 (01:16→19:05)
[2022-08-31 04:47] LABS: Absolute Neutrophil Ct (ANC) 6.22 x10^3/uL (1.4-6.9); Basophil (Absolute #) 0.07 x10^3/uL (0-0.4); Eosinophil % 1.1 % (0.00-5.0); Eosinophil (Absolute #) 0.09 x10^3/uL (0-0.5); Hematocrit 45.2 % (42-50); Hemoglobin 14.2 g/dL (12.5-18.0); Lymphocytes % 18.8 % (24.0-44.0); Mean Cell Volume 86.9 fL (78-100); Mean Corpuscular Hemoglobin 27.3 pg (26-32); Mean Corpuscular Hgb Concent. 31.4 g/dL (32-36); Mean Platelet Volume 11.3 fL (7.5-11.0); Monocyte (Absolute #) 0.48 x10^3/uL (0.0-1.3); Monocytes % 5.7 % (0.0-12.0); Neutrophil % 73.2 % (36.0-66.0); Platelet Count 189 x10^3/uL (150-450); Red Cell Distribution Width 16.7 % (11.5-14.0); White Blood Count 8.5 x10^3/uL (4.0-10.5)
[2022-08-31 05:13] LABS: ALBUMIN 2.9 g/dL (3.5-5.0); ALKALINE PHOSPHATASE 225 U/L (38-126); ANION GAP 6.2 MEQ/L (5-15); BLOOD UREA NITROGEN 17 mg/dL (9-20); CHLORIDE 99 mmol/L (98-107); Calcium 7.7 mg/dL (8.4-10.2); Carbon Dioxide 32 mmol/L (22-30); Creatinine 1 0.64 mg/dL (0.66-1.25); EST GLOMERULAR FILTRATION RATE > 60.0 ML/MIN; Glucose 185 mg/dL (74-106); SGOT/AST 41 U/L (17-59); SGPT/ALT 31 U/L (0-50); SODIUM 134 mmol/L (137-145); Total Protein 6.2 g/dL (6.3-8.2)
[2022-08-31 05:19] LABS: Potassium 2.8 mmol/L (3.5-5.1)
[2022-08-31] MEDS: Sodium Chloride 0.9% 1000 ML 1,000 ML IV SCH ×2 (06:49→16:58)
[2022-08-31] MEDS: Cardizem CD PO SCH (08:39)
--- NOTE | 2022-08-31 08:39 | XRAY ---
Indication: Cough. Multiple contiguous images obtained through the chest without contrast. Comparison: March 11, 2022 Mild diffuse respiration artifact throughout limits exam. New diffuse bilateral patchy consolidating and nonconsolidating airspace disease worrisome for Covid 19 pneumonia. Heart remains enlarged again with small right effusion. Previous left effusion has cleared. Aorta is normal in course and caliber. Small mediastinal lymph nodes, none pathologically enlarged. Bony thorax intact again with mild degenerative changes throughout the spine. Limited upper abdomen again demonstrates fatty liver. Impression: 1. Respiration artifact. 2. New diffuse bilateral patchy airspace disease. Rule out Covid 19 pneumonia. 3. Again cardiomegaly with right effusion may represent cardiac decompensation/CHF. 4. Chronic findings including degenerative spondylosis and fatty liver.
--- NOTE | 2022-08-31 09:18 | PCM.HP ---
History of Present Illness - Chief Complaint Chief Complaint: RSV History of Present Illness: is a 62 year old male pt of DR. Morris with PMHx HTN, hyperlipidemia, DM, CHF, and afib who was admitted through ER with PNA, RSV +. He told me he's been sick a couple of weeks. Pt is a poor historian. Has had cough but endorses no other sx. Does smoke, he says "not a lot" and refuses nicotine patch. Denies alcohol. Says he always wheezes. Denies chest pain. - Review of Systems Respiratory: Cough, Short Of Breath, Wheezing All Other Systems: Reviewed and Negative Medications & Allergies Home Medications: Home Medication List Atorvastatin Calcium [Lipitor 20MG Tablet] 20 mg PO HS 08/12/16 [History Confirmed 08/30/22] Benazepril HCl 40 mg PO DAILY 08/12/16 [History Confirmed 08/30/22] Duloxetine HCl 30 mg [Cymbalta 30 MG Capsule] 60 mg PO DAILY 08/12/16 [History Confirmed 08/30/22] Empagliflozin [Jardiance] 25 mg PO DAILY 08/12/16 [History Confirmed 08/30/22] Gabapentin [Neurontin] 600 mg PO BID 08/12/16 [History Confirmed 08/30/22] Hydralazine HCl 50 mg PO BID 08/12/16 [History Confirmed 08/30/22] Metformin HCl 1000 mg [Glucophage 1000 MG] 1,000 mg PO BID 08/12/16 [History Confirmed 08/30/22] Metoprolol Tartrate 50 mg PO BID 08/12/16 [History Confirmed 08/30/22] Trazodone HCl 100 mg PO HS PRN 08/12/16 [History Confirmed 08/30/22] Ammonium Lactate [Ammonium Lactate 12%] 1 applic TP HS 03/11/22 [History Confirmed 08/30/22] Tamsulosin HCl 0.4 mg [Flomax 0.4 MG] 0.4 mg PO HS 03/11/22 [History Confirmed 08/30/22] Insulin Detemir [Levemir] 15 unit SQ HS #1 unit 03/15/22 [Rx Confirmed 08/30/22] Apixaban [Eliquis 2.5 mg Tablet] 5 mg PO BID 08/31/22 [History Confirmed 08/31/22] Furosemide 20 mg [Lasix 20 mg] 30 mg PO BID 08/31/22 [History Confirmed 08/31/22] Magnesium Oxide 400 mg [Mag-Ox 400] 400 mg PO TID 08/31/22 [History Confirmed 08/31/22] Potassium Chloride 40 meq PO DAILY 08/31/22 [History Confirmed 08/31/22] Potassium Chloride Tab* [Klor Con] 20 meq PO QHS 08/31/22 [History Confirmed 08/31/22] dilTIAZem HCL [Diltiazem 24Hr ER (Xr)] 120 mg PO DAILY 08/31/22 [History Confirmed 08/31/22] Allergies/Adverse Reactions: Allergies Allergy/AdvReac Type Severity Reaction Status Date / Time No Known Drug Allergies Allergy Verified 08/30/22 16:06 - Past Medical History Past Medical History: Yes Neurological History: TIA ENT History: Other Cardiac History: Arrhythmia, High Cholesterol, Hypertension, Other Respiratory History: No Pertinent History Endocrine Medical History: Diabetes Type II Musculoskelatal History: No Pertinent History GI Medical History: No Pertinent History History: No Pertinent History Pyscho-Social History: Anxiety, Depression Male Reproductive Disorders: No Pertinent History Comment: pt states vision is blurry- may have mac deg. Has been told his heart is enlarged. daughter answering questions. Pt is a poor historian. - Past Surgical History Past Surgical History: Yes Musculskeletal Surgical Hx: Orthopedic Surgery Other Surgical History: shoulder - Social History Smoking Status: Current some day smoker How long have you smoked: 45 Exposure to second hand smoke: Yes Alcohol: Rarely Drug Use: none Significant Family History: no pertinent family hx - Physical Exam Vital Signs: Vital Signs - 24 hr Temp Pulse Resp BP Pulse Ox 08/31/22 08:29 127 H 08/31/22 08:00 98.0 F 65 16 125/100 95 08/31/22 03:12 98.1 F 131 H 20 140/86 97 08/31/22 01:16 106 H 20 93 L 08/30/22 23:01 97.4 F 89 132/99 99 08/30/22 22:09 99 08/30/22 21:57 97.4 F 89 20 132/99 99 08/30/22 20:00 105 H 24 125/88 96 08/30/22 19:20 109 H 26 H 140/95 99 08/30/22 18:01 97.9 F 99 H 26 H 122/86 97 08/30/22 17:04 100 H 122/86 97 08/30/22 16:38 99 08/30/22 16:15 102 H 26 H 99 08/30/22 16:10 30 H 94 L 08/30/22 16:05 97.7 F 98 H 30 H 140/109 94 L General Appearance: no apparent distress, obese Neurologic Exam: oriented x 3, cooperative Eye Exam: eyes nml inspection Ears, Nose, Throat Exam: moist mucous membranes Neck Exam: normal inspection, non-tender, No lymphadenopathy, No thyromegaly Respiratory Exam: diminished breath sounds (fair air exchange), prolonged expirations, wheezing, No crackles/rales, No rhonchi Cardiovascular Exam: normal heart sounds, irregular, No murmur Gastrointestinal/Abdomen Exam: soft, normal bowel sounds, distention ((obese)), No tenderness, No mass, No guarding, No rebound Back Exam: normal inspection, No rash Extremity Exam: normal inspection, No pedal edema, No swelling Skin Exam: normal color, warm, dry, No rash Wound Assessment: Skin/Wound Assessment Wound/Incision Assessment Start: 08/30/22 22:50 Text: Status: Active Freq: Q6H Protocol: Document 08/31/22 04:50 RB (Rec: 08/31/22 06:08 RB [id number]) Wound/Incision Assessment Left Heel Wound Assessment Admission Wound Type Abrasion Length (cm) (cm) 1 Width (cm) (cm) 1 Depth (cm) (cm) 0 Comment cleansed with saline and covered with large bandaid. Results - Labs Lab/Micro Results: Lab Results-Last 24 Hours 08/30/22 08/30/22 08/30/22 Range/Units 16:18 16:18 16:18 WBC 9.7 (4.0-10.5) x10^3/uL RBC 5.97 H (4.1-5.6) x10^6/uL Hgb 16.4 (12.5-18.0) g/dL Hct 52.3 H (42-50) % MCV 87.6 (78-100) fL MCH 27.5 (26-32) pg MCHC 31.4 L (32-36) g/dL RDW 18.4 H (11.5-14.0) % Plt Count 213 (150-450) x10^3/uL MPV 11.5 H (7.5-11.0) fL Gran % 77.5 H (36.0-66.0) % Immature Gran % (Auto) 0.2 (0.00-0.4) % Nucleat RBC Rel Count 0.0 (0.00-0.1) % Eos # (Auto) 0.07 (0-0.5) x10^3/uL Immature Gran # (Auto) 0.02 (0.00-0.03) x10^3u/L Absolute Lymphs (auto) 1.43 (1.0-4.6) x10^3/uL Absolute Monos (auto) 0.60 (0.0-1.3) x10^3/uL Absolute Nucleated RBC 0.00 (0.00-0.01) x10^3u/L Lymphocytes % 14.7 L (24.0-44.0) % Monocytes % 6.2 (0.0-12.0) % Eosinophils % 0.7 (0.00-5.0) % Basophils % 0.7 (0.0-0.4) % Absolute Granulocytes 7.52 H (1.4-6.9) x10^3/uL Basophils # 0.07 (0-0.4) x10^3/uL PT 13.5 H (9.4-12.5) SECONDS INR 1.30 (0.8-3.0) APTT 33.4 (25.1-36.5) SECONDS Puncture Site pCO2 (35-45) mmHg pO2 (75-100) mmHg Base Excess (-2.0-2.0) O2 Saturation (94-100) g/dF ABG pH (7.35-7.45) ABG HCO3 (22-28) ABG O2 Sat (Measured) (95-100) % Phil Test A-a Gradient a/A Ratio Hemoglobin Carboxyhemoglobin (0.0-6.9) % THgb Methemoglobin (1.4-1.5) % Temperature C POC O2 Flow Rate % Sodium 137 (137-145) mmol/L Potassium 2.7 L* (3.5-5.1) mmol/L Chloride 95 L (98-107) mmol/L Carbon Dioxide 38 H (22-30) mmol/L Anion Gap 6.8 (5-15) MEQ/L BUN 21 H (9-20) mg/dL Creatinine 0.84 (0.66-1.25) mg/dL Estimated GFR > 60.0 ML/MIN Glucose 309 H (74-106) mg/dL POC Glucometer (74 to 106) mg/dL Lactic Acid (0.4-2.0) Calcium 8.1 L (8.4-10.2) mg/dL Magnesium 1.7 (1.6-2.3) mg/dL Total Bilirubin 1.40 H (0.2-1.3) mg/dL AST 52 (17-59) U/L ALT 35 (0-50) U/L Alkaline Phosphatase 278 H (38-126) U/L Troponin I (0.000-0.034) ng/mL NT-Pro-B Natriuret Pep 4770 H (0-900) pg/mL Serum Total Protein 7.3 (6.3-8.2) g/dL Albumin 3.4 L (3.5-5.0) g/dL Influenza Type A Ag (NEGATIVE) Influenza Type B Ag (NEGATIVE) RSV (PCR) (Negative) SARS-CoV-2 (PCR) (NEGATIVE) 08/30/22 08/30/22 08/30/22 Range/Units 16:18 16:18 16:31 WBC (4.0-10.5) x10^3/uL RBC (4.1-5.6) x10^6/uL Hgb (12.5-18.0) g/dL Hct (42-50) % MCV (78-100) fL MCH (26-32) pg MCHC (32-36) g/dL RDW (11.5-14.0) % Plt Count (150-450) x10^3/uL MPV (7.5-11.0) fL Gran % (36.0-66.0) % Immature Gran % (Auto) (0.00-0.4) % Nucleat RBC Rel Count (0.00-0.1) % Eos # (Auto) (0-0.5) x10^3/uL Immature Gran # (Auto) (0.00-0.03) x10^3u/L Absolute Lymphs (auto) (1.0-4.6) x10^3/uL Absolute Monos (auto) (0.0-1.3) x10^3/uL Absolute Nucleated RBC (0.00-0.01) x10^3u/L Lymphocytes % (24.0-44.0) % Monocytes % (0.0-12.0) % Eosinophils % (0.00-5.0) % Basophils % (0.0-0.4) % Absolute Granulocytes (1.4-6.9) x10^3/uL Basophils # (0-0.4) x10^3/uL PT (9.4-12.5) SECONDS INR (0.8-3.0) APTT (25.1-36.5) SECONDS Puncture Site pCO2 (35-45) mmHg pO2 (75-100) mmHg Base Excess (-2.0-2.0) O2 Saturation (94-100) g/dF ABG pH (7.35-7.45) ABG HCO3 (22-28) ABG O2 Sat (Measured) (95-100) % Phil Test A-a Gradient a/A Ratio Hemoglobin Carboxyhemoglobin (0.0-6.9) % THgb Methemoglobin (1.4-1.5) % Temperature C POC O2 Flow Rate % Sodium (137-145) mmol/L Potassium (3.5-5.1) mmol/L Chloride (98-107) mmol/L Carbon Dioxide (22-30) mmol/L Anion Gap (5-15) MEQ/L BUN (9-20) mg/dL Creatinine (0.66-1.25) mg/dL Estimated GFR ML/MIN Glucose (74-106) mg/dL POC Glucometer (74 to 106) mg/dL Lactic Acid 3.3 H (0.4-2.0) Calcium (8.4-10.2) mg/dL Magnesium (1.6-2.3) mg/dL Total Bilirubin (0.2-1.3) mg/dL AST (17-59) U/L ALT (0-50) U/L Alkaline Phosphatase (38-126) U/L Troponin I 0.081 H* (0.000-0.034) ng/mL NT-Pro-B Natriuret Pep (0-900) pg/mL Serum Total Protein (6.3-8.2) g/dL Albumin (3.5-5.0) g/dL Influenza Type A Ag NEGATIVE (NEGATIVE) Influenza Type B Ag NEGATIVE (NEGATIVE) RSV (PCR) POSITIVE (Negative) SARS-CoV-2 (PCR) NEGATIVE (NEGATIVE) 08/30/22 08/30/22 08/30/22 Range/Units 18:32 18:45 18:55 WBC (4.0-10.5) x10^3/uL RBC (4.1-5.6) x10^6/uL Hgb (12.5-18.0) g/dL Hct (42-50) % MCV (78-100) fL MCH (26-32) pg MCHC (32-36) g/dL RDW (11.5-14.0) % Plt Count (150-450) x10^3/uL MPV (7.5-11.0) fL Gran % (36.0-66.0) % Immature Gran % (Auto) (0.00-0.4) % Nucleat RBC Rel Count (0.00-0.1) % Eos # (Auto) (0-0.5) x10^3/uL Immature Gran # (Auto) (0.00-0.03) x10^3u/L Absolute Lymphs (auto) (1.0-4.6) x10^3/uL Absolute Monos (auto) (0.0-1.3) x10^3/uL Absolute Nucleated RBC (0.00-0.01) x10^3u/L Lymphocytes % (24.0-44.0) % Monocytes % (0.0-12.0) % Eosinophils % (0.00-5.0) % Basophils % (0.0-0.4) % Absolute Granulocytes (1.4-6.9) x10^3/uL Basophils # (0-0.4) x10^3/uL PT (9.4-12.5) SECONDS INR (0.8-3.0) APTT (25.1-36.5) SECONDS Puncture Site RIGHT BRACHIAL pCO2 43 (35-45) mmHg pO2 67 L (75-100) mmHg Base Excess 10.9 H (-2.0-2.0) O2 Saturation 92.6 L (94-100) g/dF ABG pH 7.52 H (7.35-7.45) ABG HCO3 35.1 H* (22-28) ABG O2 Sat (Measured) 95.0 (95-100) % Phil Test NOT APPLICABLE A-a Gradient 29 a/A Ratio 0.70 Hemoglobin 14.9 Carboxyhemoglobin 2.0 (0.0-6.9) % THgb Methemoglobin 0.5 L (1.4-1.5) % Temperature 37.0 C POC O2 Flow Rate 21 % Sodium (137-145) mmol/L Potassium 2.6 L* (3.5-5.1) mmol/L Chloride (98-107) mmol/L Carbon Dioxide (22-30) mmol/L Anion Gap (5-15) MEQ/L BUN (9-20) mg/dL Creatinine (0.66-1.25) mg/dL Estimated GFR ML/MIN Glucose (74-106) mg/dL POC Glucometer (74 to 106) mg/dL Lactic Acid 1.9 (0.4-2.0) Calcium (8.4-10.2) mg/dL Magnesium (1.6-2.3) mg/dL Total Bilirubin (0.2-1.3) mg/dL AST (17-59) U/L ALT (0-50) U/L Alkaline Phosphatase (38-126) U/L Troponin I 0.066 H* (0.000-0.034) ng/mL NT-Pro-B Natriuret Pep (0-900) pg/mL Serum Total Protein (6.3-8.2) g/dL Albumin (3.5-5.0) g/dL Influenza Type A Ag (NEGATIVE) Influenza Type B Ag (NEGATIVE) RSV (PCR) (Negative) SARS-CoV-2 (PCR) (NEGATIVE) 08/31/22 08/31/22 08/31/22 Range/Units 00:25 04:15 04:20 WBC 8.5 (4.0-10.5) x10^3/uL RBC 5.20 (4.1-5.6) x10^6/uL Hgb 14.2 (12.5-18.0) g/dL Hct 45.2 (42-50) % MCV 86.9 (78-100) fL MCH 27.3 (26-32) pg MCHC 31.4 L (32-36) g/dL RDW 16.7 H (11.5-14.0) % Plt Count 189 (150-450) x10^3/uL MPV 11.3 H (7.5-11.0) fL Gran % 73.2 H (36.0-66.0) % Immature Gran % (Auto) 0.4 (0.00-0.4) % Nucleat RBC Rel Count 0.0 (0.00-0.1) % Eos # (Auto) 0.09 (0-0.5) x10^3/uL Immature Gran # (Auto) 0.03 (0.00-0.03) x10^3u/L Absolute Lymphs (auto) 1.60 (1.0-4.6) x10^3/uL Absolute Monos (auto) 0.48 (0.0-1.3) x10^3/uL Absolute Nucleated RBC 0.00 (0.00-0.01) x10^3u/L Lymphocytes % 18.8 L (24.0-44.0) % Monocytes % 5.7 (0.0-12.0) % Eosinophils % 1.1 (0.00-5.0) % Basophils % 0.8 (0.0-0.4) % Absolute Granulocytes 6.22 (1.4-6.9) x10^3/uL Basophils # 0.07 (0-0.4) x10^3/uL PT (9.4-12.5) SECONDS INR (0.8-3.0) APTT (25.1-36.5) SECONDS Puncture Site pCO2 (35-45) mmHg pO2 (75-100) mmHg Base Excess (-2.0-2.0) O2 Saturation (94-100) g/dF ABG pH (7.35-7.45) ABG HCO3 (22-28) ABG O2 Sat (Measured) (95-100) % Phil Test A-a Gradient a/A Ratio Hemoglobin Carboxyhemoglobin (0.0-6.9) % THgb Methemoglobin (1.4-1.5) % Temperature C POC O2 Flow Rate % Sodium 134 L (137-145) mmol/L Potassium 2.8 L* (3.5-5.1) mmol/L Chloride 99 (98-107) mmol/L Carbon Dioxide 32 H (22-30) mmol/L Anion Gap 6.2 (5-15) MEQ/L BUN 17 (9-20) mg/dL Creatinine 0.64 L (0.66-1.25) mg/dL Estimated GFR > 60.0 ML/MIN Glucose 185 H (74-106) mg/dL POC Glucometer (74 to 106) mg/dL Lactic Acid (0.4-2.0) Calcium 7.7 L (8.4-10.2) mg/dL Magnesium (1.6-2.3) mg/dL Total Bilirubin 1.30 (0.2-1.3) mg/dL AST 41 (17-59) U/L ALT 31 (0-50) U/L Alkaline Phosphatase 225 H (38-126) U/L Troponin I 0.067 H* (0.000-0.034) ng/mL NT-Pro-B Natriuret Pep (0-900) pg/mL Serum Total Protein 6.2 L (6.3-8.2) g/dL Albumin 2.9 L (3.5-5.0) g/dL Influenza Type A Ag (NEGATIVE) Influenza Type B Ag (NEGATIVE) RSV (PCR) (Negative) SARS-CoV-2 (PCR) (NEGATIVE) 08/31/22 08/31/22 Range/Units 05:01 07:50 WBC (4.0-10.5) x10^3/uL RBC (4.1-5.6) x10^6/uL Hgb (12.5-18.0) g/dL Hct (42-50) % MCV (78-100) fL MCH (26-32) pg MCHC (32-36) g/dL RDW (11.5-14.0) % Plt Count (150-450) x10^3/uL MPV (7.5-11.0) fL Gran % (36.0-66.0) % Immature Gran % (Auto) (0.00-0.4) % Nucleat RBC Rel Count (0.00-0.1) % Eos # (Auto) (0-0.5) x10^3/uL Immature Gran # (Auto) (0.00-0.03) x10^3u/L Absolute Lymphs (auto) (1.0-4.6) x10^3/uL Absolute Monos (auto) (0.0-1.3) x10^3/uL Absolute Nucleated RBC (0.00-0.01) x10^3u/L Lymphocytes % (24.0-44.0) % Monocytes % (0.0-12.0) % Eosinophils % (0.00-5.0) % Basophils % (0.0-0.4) % Absolute Granulocytes (1.4-6.9) x10^3/uL Basophils # (0-0.4) x10^3/uL PT (9.4-12.5) SECONDS INR (0.8-3.0) APTT (25.1-36.5) SECONDS Puncture Site pCO2 (35-45) mmHg pO2 (75-100) mmHg Base Excess (-2.0-2.0) O2 Saturation (94-100) g/dF ABG pH (7.35-7.45) ABG HCO3 (22-28) ABG O2 Sat (Measured) (95-100) % Phil Test A-a Gradient a/A Ratio Hemoglobin Carboxyhemoglobin (0.0-6.9) % THgb Methemoglobin (1.4-1.5) % Temperature C POC O2 Flow Rate % Sodium (137-145) mmol/L Potassium (3.5-5.1) mmol/L Chloride (98-107) mmol/L Carbon Dioxide (22-30) mmol/L Anion Gap (5-15) MEQ/L BUN (9-20) mg/dL Creatinine (0.66-1.25) mg/dL Estimated GFR ML/MIN Glucose (74-106) mg/dL POC Glucometer 181 H (74 to 106) mg/dL Lactic Acid 1.5 (0.4-2.0) Calcium (8.4-10.2) mg/dL Magnesium (1.6-2.3) mg/dL Total Bilirubin (0.2-1.3) mg/dL AST (17-59) U/L ALT (0-50) U/L Alkaline Phosphatase (38-126) U/L Troponin I (0.000-0.034) ng/mL NT-Pro-B Natriuret Pep (0-900) pg/mL Serum Total Protein (6.3-8.2) g/dL Albumin (3.5-5.0) g/dL Influenza Type A Ag (NEGATIVE) Influenza Type B Ag (NEGATIVE) RSV (PCR) (Negative) SARS-CoV-2 (PCR) (NEGATIVE) Accuchecks Date 08/31/22 Time 08:12 - Radiology Impressions Radiology Exams & Impressions: Radiology Procedures Category Date Time Status CHEST 1 VIEW (PORTABLE) Stat Exams 08/30/22 16:07 Completed CHEST WITHOUT CONTRAST [CT] Stat Exams 08/30/22 17:10 Completed - Other Procedures and Tests Respiratory Therapy 08/30/22 16:57 Respiratory Therapy Assessment DAILY Assessment/Plan (1) Pneumonia Current Visit: Yes Status: Acute Qualifiers: Pneumonia type: due to unspecified organism Laterality: bilateral Lung location: unspecified part of lung Qualified Code(s): J18.9 - Pneumonia, unspecified organism Assessment & Plan: On rocephin and zithromax. Will add steroid as he is quite wheezy. I am certain he has underlying COPD as well. Code(s): J18.9 - PNEUMONIA, UNSPECIFIED ORGANISM (2) RSV (acute bronchiolitis due to respiratory syncytial virus) Current Visit: Yes Status: Acute (3) Acute CHF (congestive heart failure) Current Visit: No Status: Acute Assessment & Plan: on lasix IV Code(s): I50.9 - HEART FAILURE, UNSPECIFIED (4) Elevated troponin Current Visit: No Status: Resolved Assessment & Plan: Has trended down a little since admission, likely due to CHF/heart strain and acute illness. Pt is asx. Code(s): R77.8 - OTHER SPECIFIED ABNORMALITIES OF PLASMA PROTEINS (5) DM (diabetes mellitus) Current Visit: No Status: Acute Qualifiers: Diabetes mellitus type: type 2 Diabetes mellitus machine long goods helper insulin use: unspecified senior living insulin use status Code(s): E11.9 - TYPE 2 DIABETES MELLITUS WITHOUT COMPLICATIONS (6) Coronary artery disease Current Visit: No Status: Chronic Code(s): I25.10 - ATHSCL HEART DISEASE OF [place] CORONARY ARTERY W/O ANG PCTRS (7) Hypertension Current Visit: No Status: Chronic Qualifiers: Code(s): I10 - ESSENTIAL (PRIMARY) HYPERTENSION
[2022-08-31] MEDS: ELIQUIS 2.5 MG TABLET PO SCH ×2 (09:45→22:15)
[2022-08-31] MEDS: Lotensin PO SCH (09:45)
[2022-08-31] MEDS: NEURONTIN PO SCH ×2 (11:26→22:15)
[2022-08-31] MEDS: solu-MEDROL 40 MG, Sterile H2O 10 ml 1 ML IV SCH ×4 (11:26→17:56)
[2022-08-31] MEDS: Lopressor 50 MG PO SCH ×2 (11:26→22:15)
[2022-08-31] MEDS: PROTONIX 40 MG IV IV SCH (11:26)
[2022-08-31] MEDS: Apresoline 25 MG TABLET PO SCH ×2 (11:27→22:15)
[2022-08-31] MEDS: LASIX 20 MG PO SCH ×2 (11:27→17:44)
[2022-08-31] MEDS: Cymbalta 30 MG Capsule PO SCH (11:27)
[2022-08-31] MEDS: MAG-OX 400 PO SCH ×2 (14:28→22:15)
[2022-08-31] MEDS: CLONIDINE 0.1 MG TABLET PO SCH ×2 (14:28→22:15)
[2022-08-31] MEDS: ROCEPHIN 1 Gm-D5w 50 ml Bag** 1 G/50 ML IVPB IV SCH (17:59)
[2022-08-31] MEDS: HUMALOG SQ PRN ×2 (18:39→21:43)
[2022-08-31] MEDS: Lantus Insulin SQ SCH (21:42)
[2022-08-31] MEDS: Zithromax 500 MG/ 250 ML NaCl Premix 500 MG/250 ML IVPB IV SCH (21:45)
[2022-08-31] MEDS: AMMONIUM LACTATE 12% TP SCH (21:50)
[2022-08-31] MEDS ORDERED: NON-FORMULARY ITEM (Hydralazine Hcl [Hydralazine Hcl] 50 MG Tablet) PO SCH (22:00)
[2022-08-31] MEDS ORDERED: NON-FORMULARY ITEM (Metoprolol Tartrate [Metoprolol Tartrate] 100 MG Tablet) PO SCH (22:00)
[2022-08-31] MEDS ORDERED: NON-FORMULARY ITEM (Insulin Detemir [Levemir] 100 UNIT/ML Vial) SQ SCH (22:00)
[2022-08-31] MEDS ORDERED: NON-FORMULARY ITEM (Atorvastatin Calcium 20 MG Tab) PO SCH (22:00)
[2022-08-31] MEDS ORDERED: NON-FORMULARY ITEM (Trazodone Hcl [Trazodone Hcl] 100 MG Tablet) PO SCH (22:00)
[2022-08-31] MEDS: Zocor 10MG PO SCH (22:15)
[2022-08-31] MEDS: DESYREL 50 MG PO SCH (22:15)
[2022-08-31] MEDS: Flomax 0.4 MG PO SCH (22:15)
[2022-09-01] MEDS: solu-MEDROL 40 MG, Sterile H2O 10 ml 1 ML IV SCH ×8 (00:13→18:30)
[2022-09-01] MEDS: DUONEB 0.5-3 MG/3 ml Neb IH SCH ×4 (01:45→18:37)
[2022-09-01 07:51] LABS: Absolute Neutrophil Ct (ANC) 4.61 x10^3/uL (1.4-6.9); Basophil (Absolute #) 0.03 x10^3/uL (0-0.4); Eosinophil (Absolute #) 0 x10^3/uL (0-0.5); Hematocrit 46.9 % (42-50); Hemoglobin 14.6 g/dL (12.5-18.0); Lymphocyte (Absolute #) 1.25 x10^3/uL (1.0-4.6); Lymphocytes % 20.4 % (24.0-44.0); Mean Cell Volume 87.5 fL (78-100); Mean Corpuscular Hemoglobin 27.2 pg (26-32); Mean Corpuscular Hgb Concent. 31.1 g/dL (32-36); Mean Platelet Volume 11.2 fL (7.5-11.0); Monocytes % 3.3 % (0.0-12.0); Neutrophil % 75.3 % (36.0-66.0); Platelet Count 219 x10^3/uL (150-450); Red Blood Count 5.36 x10^6/uL (4.1-5.6); Red Cell Distribution Width 16.9 % (11.5-14.0); White Blood Count 6.1 x10^3/uL (4.0-10.5)
[2022-09-01 08:05] LABS: ANION GAP 11.2 MEQ/L (5-15); BLOOD UREA NITROGEN 20 mg/dL (9-20); CHLORIDE 99 mmol/L (98-107); Calcium 8.1 mg/dL (8.4-10.2); Carbon Dioxide 28 mmol/L (22-30); Creatinine 1 0.77 mg/dL (0.66-1.25); EST GLOMERULAR FILTRATION RATE > 60.0 ML/MIN; Glucose 356 mg/dL (74-106); Potassium 4.1 mmol/L (3.5-5.1); SODIUM 134 mmol/L (137-145)
[2022-09-01 09:42] LABS: Slide Review 1 YES
[2022-09-01] MEDS ORDERED: NON-FORMULARY ITEM (Potassium Chloride [Potassium Chloride] 10 MEQ Tablet.Er) PO SCH (10:00)
--- NOTE | 2022-09-01 10:30 | PCM.NOTE ---
Date and Time: 09/01/22 1027 Subjective Assessment: patient is doing ok, he is sleeping. states he is a little short of breath. he has some cough, he is a poor historian and basically has no complaints today. Objective Exam General Appearance: obese Neurologic Exam: alert, cooperative Wound Assessment: Skin/Wound Assessment Wound/Incision Assessment Start: 08/30/22 22:50 Text: Status: Active Freq: Q6H Protocol: Document 09/01/22 04:00 RB (Rec: 09/01/22 06:31 RB [id number]) Wound/Incision Assessment Left Heel General Appearance Open to air Respiratory Exam: crackles/rales Cardiovascular Exam: regular rate/rhythm, normal heart sounds Gastrointestinal/Abdomen Exam: soft, No tenderness, No mass OBJECTIVE DATA Vital Signs: Vital Signs - 24 hr Temp Pulse Resp BP Pulse Ox 09/01/22 08:00 98.0 F 95 H 18 112/74 93 L 09/01/22 07:09 102 H 16 92 L 09/01/22 04:00 98.2 F 83 24 113/70 95 09/01/22 01:48 77 16 93 L 08/31/22 23:46 98.4 F 102 H 20 113/75 97 08/31/22 20:00 98.2 F 103 H 19 127/71 94 L 08/31/22 19:05 105 H 16 93 L 08/31/22 16:00 98.0 F 63 16 145/106 95 08/31/22 12:57 80 18 95 08/31/22 11:45 97.6 F 64 16 135/85 95 Pain Assessment - Last Documented Pain Intensity 0 Intake and Output: Intake & Output 08/29/22 08/30/22 08/31/22 09/01/22 11:59 11:59 11:59 11:59 Intake Total 1347 3943 Output Total 1800 1450 Balance -453 2493 Weight 119.6 kg Lab Results: Lab Results-Last 24 Hours 08/31/22 08/31/22 08/31/22 Range/Units 04:30 11:33 16:20 WBC (4.0-10.5) x10^3/uL RBC (4.1-5.6) x10^6/uL Hgb (12.5-18.0) g/dL Hct (42-50) % MCV (78-100) fL MCH (26-32) pg MCHC (32-36) g/dL RDW (11.5-14.0) % Plt Count (150-450) x10^3/uL MPV (7.5-11.0) fL Gran % (36.0-66.0) % Immature Gran % (Auto) (0.00-0.4) % Nucleat RBC Rel Count (0.00-0.1) % Eos # (Auto) (0-0.5) x10^3/uL Immature Gran # (Auto) (0.00-0.03) x10^3u/L Absolute Lymphs (auto) (1.0-4.6) x10^3/uL Absolute Monos (auto) (0.0-1.3) x10^3/uL Absolute Nucleated RBC (0.00-0.01) x10^3u/L Lymphocytes % (24.0-44.0) % Monocytes % (0.0-12.0) % Eosinophils % (0.00-5.0) % Basophils % (0.0-0.4) % Absolute Granulocytes (1.4-6.9) x10^3/uL Basophils # (0-0.4) x10^3/uL Sodium (137-145) mmol/L Potassium (3.5-5.1) mmol/L Chloride (98-107) mmol/L Carbon Dioxide (22-30) mmol/L Anion Gap (5-15) MEQ/L BUN (9-20) mg/dL Creatinine (0.66-1.25) mg/dL Estimated GFR ML/MIN Glucose (74-106) mg/dL POC Glucometer 218 H 337 H (74 to 106) mg/dL Hemoglobin A1c 9.96 H (4.5-6.0) % Calcium (8.4-10.2) mg/dL Slides for Path Review 08/31/22 09/01/22 09/01/22 Range/Units 21:13 07:46 07:46 WBC 6.1 (4.0-10.5) x10^3/uL RBC 5.36 (4.1-5.6) x10^6/uL Hgb 14.6 (12.5-18.0) g/dL Hct 46.9 (42-50) % MCV 87.5 (78-100) fL MCH 27.2 (26-32) pg MCHC 31.1 L (32-36) g/dL RDW 16.9 H (11.5-14.0) % Plt Count 219 (150-450) x10^3/uL MPV 11.2 H (7.5-11.0) fL Gran % 75.3 H (36.0-66.0) % Immature Gran % (Auto) 0.5 H (0.00-0.4) % Nucleat RBC Rel Count 0.0 (0.00-0.1) % Eos # (Auto) 0 (0-0.5) x10^3/uL Immature Gran # (Auto) 0.03 (0.00-0.03) x10^3u/L Absolute Lymphs (auto) 1.25 (1.0-4.6) x10^3/uL Absolute Monos (auto) 0.20 (0.0-1.3) x10^3/uL Absolute Nucleated RBC 0.00 (0.00-0.01) x10^3u/L Lymphocytes % 20.4 L (24.0-44.0) % Monocytes % 3.3 (0.0-12.0) % Eosinophils % 0.0 (0.00-5.0) % Basophils % 0.5 (0.0-0.4) % Absolute Granulocytes 4.61 (1.4-6.9) x10^3/uL Basophils # 0.03 (0-0.4) x10^3/uL Sodium 134 L (137-145) mmol/L Potassium 4.1 D (3.5-5.1) mmol/L Chloride 99 (98-107) mmol/L Carbon Dioxide 28 (22-30) mmol/L Anion Gap 11.2 (5-15) MEQ/L BUN 20 (9-20) mg/dL Creatinine 0.77 (0.66-1.25) mg/dL Estimated GFR > 60.0 ML/MIN Glucose 356 H (74-106) mg/dL POC Glucometer 369 H (74 to 106) mg/dL Hemoglobin A1c (4.5-6.0) % Calcium 8.1 L (8.4-10.2) mg/dL Slides for Path Review YES 09/01/22 Range/Units 07:48 WBC (4.0-10.5) x10^3/uL RBC (4.1-5.6) x10^6/uL Hgb (12.5-18.0) g/dL Hct (42-50) % MCV (78-100) fL MCH (26-32) pg MCHC (32-36) g/dL RDW (11.5-14.0) % Plt Count (150-450) x10^3/uL MPV (7.5-11.0) fL Gran % (36.0-66.0) % Immature Gran % (Auto) (0.00-0.4) % Nucleat RBC Rel Count (0.00-0.1) % Eos # (Auto) (0-0.5) x10^3/uL Immature Gran # (Auto) (0.00-0.03) x10^3u/L Absolute Lymphs (auto) (1.0-4.6) x10^3/uL Absolute Monos (auto) (0.0-1.3) x10^3/uL Absolute Nucleated RBC (0.00-0.01) x10^3u/L Lymphocytes % (24.0-44.0) % Monocytes % (0.0-12.0) % Eosinophils % (0.00-5.0) % Basophils % (0.0-0.4) % Absolute Granulocytes (1.4-6.9) x10^3/uL Basophils # (0-0.4) x10^3/uL Sodium (137-145) mmol/L Potassium (3.5-5.1) mmol/L Chloride (98-107) mmol/L Carbon Dioxide (22-30) mmol/L Anion Gap (5-15) MEQ/L BUN (9-20) mg/dL Creatinine (0.66-1.25) mg/dL Estimated GFR ML/MIN Glucose (74-106) mg/dL POC Glucometer 345 H (74 to 106) mg/dL Hemoglobin A1c (4.5-6.0) % Calcium (8.4-10.2) mg/dL Slides for Path Review Radiology Exams: Radiology Procedures Category Date Time Status CHEST 1 VIEW (PORTABLE) Stat Exams 08/30/22 16:07 Completed CHEST WITHOUT CONTRAST [CT] Stat Exams 08/30/22 17:10 Completed Assessment/Plan (1) Pneumonia Current Visit: Yes Status: Acute Qualifiers: Pneumonia type: due to unspecified organism Laterality: bilateral Lung location: unspecified part of lung Qualified Code(s): J18.9 - Pneumonia, unspecified organism Assessment & Plan: continue rocephin and zithromax, currently on room air Code(s): J18.9 - PNEUMONIA, UNSPECIFIED ORGANISM (2) RSV (acute bronchiolitis due to respiratory syncytial virus) Current Visit: Yes Status: Acute (3) Acute CHF (congestive heart failure) Current Visit: No Status: Acute Assessment & Plan: crackles, appears volume overloaded on exam. add IV lasix and lock IV fluids. Code(s): I50.9 - HEART FAILURE, UNSPECIFIED
[2022-09-01] MEDS: LASIX 20 MG PO SCH (10:33)
[2022-09-01] MEDS: Cymbalta 30 MG Capsule PO SCH (10:56)
[2022-09-01] MEDS: PROTONIX 40 MG IV IV SCH (10:56)
[2022-09-01] MEDS: ELIQUIS 2.5 MG TABLET PO SCH ×2 (10:56→22:19)
[2022-09-01] MEDS: HUMALOG SQ PRN ×4 (10:56→21:58)
[2022-09-01] MEDS: Lasix 40 MG/4 ML IV SCH ×2 (10:56→22:01)
[2022-09-01] MEDS: Klor Con PO SCH ×2 (10:57→22:02)
[2022-09-01] MEDS: Apresoline 25 MG TABLET PO SCH ×2 (10:57→22:16)
[2022-09-01] MEDS: Cardizem CD PO SCH (10:57)
[2022-09-01] MEDS: MAG-OX 400 PO SCH ×3 (10:57→22:03)
[2022-09-01] MEDS: NEURONTIN PO SCH ×2 (10:58→22:03)
[2022-09-01] MEDS: CLONIDINE 0.1 MG TABLET PO SCH ×3 (13:04→22:02)
[2022-09-01] MEDS: Lotensin PO SCH (13:12)
[2022-09-01] MEDS: Lopressor 50 MG PO SCH ×2 (13:13→22:02)
--- NOTE | 2022-09-01 16:20 | XRAY ---
Indication: Sudden onset acute mental status change. Positive RSV. Multiple contiguous axial images obtained through the head without contrast. Comparison: February 22, 2006 Progressive worsening age-appropriate global atrophy and moderate periventricular degenerative micro-ischemia bilaterally. 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 No acute intracranial hemorrhage, hydrocephalus, or mass effect. Fourth ventricle is midline. Bony calvarium intact. Mild mucosal thickening right maxillary and right sphenoid sinuses with right maxillary sinus fluid leveling. Mastoid air cells are clear. Impression: 1. Progressive aging brain including atrophy and degenerative micro-ischemia. 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 2. No acute intracranial abnormalities. 3. Incidental paranasal sinus disease.
[2022-09-01] MEDS: ROCEPHIN 1 Gm-D5w 50 ml Bag** 1 G/50 ML IVPB IV SCH (18:30)
[2022-09-01] MEDS: Lantus Insulin SQ SCH (21:59)
[2022-09-01] MEDS: AMMONIUM LACTATE 12% TP SCH (22:00)
[2022-09-01] MEDS: DESYREL 50 MG PO SCH (22:01)
[2022-09-01] MEDS: Flomax 0.4 MG PO SCH (22:01)
[2022-09-01] MEDS: Zocor 10MG PO SCH (22:02)
[2022-09-01] MEDS: Zithromax 500 MG/ 250 ML NaCl Premix 500 MG/250 ML IVPB IV SCH (22:18)
[2022-09-02] MEDS: solu-MEDROL 40 MG, Sterile H2O 10 ml 1 ML IV SCH ×4 (00:21→05:27)
[2022-09-02] MEDS: DUONEB 0.5-3 MG/3 ml Neb IH SCH ×2 (01:56→06:17)
[2022-09-02 05:53] LABS: Absolute Neutrophil Ct (ANC) 7.85 x10^3/uL (1.4-6.9); Basophil (Absolute #) 0.03 x10^3/uL (0-0.4); Eosinophil (Absolute #) 0 x10^3/uL (0-0.5); Hematocrit 45.2 % (42-50); Hemoglobin 14.4 g/dL (12.5-18.0); Lymphocyte (Absolute #) 1.28 x10^3/uL (1.0-4.6); Lymphocytes % 13.2 % (24.0-44.0); Mean Cell Volume 86.4 fL (78-100); Mean Corpuscular Hemoglobin 27.5 pg (26-32); Mean Corpuscular Hgb Concent. 31.9 g/dL (32-36); Mean Platelet Volume 11.3 fL (7.5-11.0); Monocyte (Absolute #) 0.44 x10^3/uL (0.0-1.3); Monocytes % 4.6 % (0.0-12.0); Neutrophil % 81.2 % (36.0-66.0); Platelet Count 255 x10^3/uL (150-450); Red Blood Count 5.23 x10^6/uL (4.1-5.6); Red Cell Distribution Width 16.8 % (11.5-14.0); White Blood Count 9.7 x10^3/uL (4.0-10.5)
[2022-09-02 06:25] LABS: ANION GAP 7.5 MEQ/L (5-15); BLOOD UREA NITROGEN 30 mg/dL (9-20); CHLORIDE 97 mmol/L (98-107); Calcium 8.2 mg/dL (8.4-10.2); Carbon Dioxide 30 mmol/L (22-30); Creatinine 1 0.89 mg/dL (0.66-1.25); EST GLOMERULAR FILTRATION RATE > 60.0 ML/MIN; Glucose 415 mg/dL (74-106); NT PRO BNP 6140 pg/mL (0-900); Potassium 4.3 mmol/L (3.5-5.1); SODIUM 130 mmol/L (137-145)
[2022-09-02] MEDS: HUMALOG SQ PRN (06:57)
[2022-09-02 07:17] VITALS: BP 100/38; PULSE 83; O2SAT 99
--- NOTE | 2022-09-02 09:04 | PCM.DS ---
Discharge Summary Date of Admission: 08/30/22 21:20 Admitting Physician: SHEY CEJA Primary Care Provider: IRVING HENRY KAMRAN Allergies Allergies No Known Drug Allergies Allergy (Verified 08/30/22 16:06) Hospital Summary - Hospital Course Hospital Course: patient admitted with pneumonia, rsv and acute chf. has diuresed well, on room air and eating and drinking normally. states his breathing is much better since admission. has some confusion, ct shows old infarct which is a new finding. - Vitals & Intake/Output Vital Signs: Vital Signs Temperature 97.7 F 09/02/22 07:17 Pulse Rate 83 09/02/22 07:17 Respiratory Rate 17 09/02/22 07:17 Blood Pressure 100/38 09/02/22 07:17 O2 Sat by Pulse Oximetry 99 09/02/22 07:17 Intake & Output: Intake & Output 08/30/22 08/31/22 09/01/22 09/02/22 11:59 11:59 11:59 11:59 Intake Total 1347 3943 1840 Output Total 1800 1450 Balance -453 2493 1840 Weight 119.6 kg - Lab Result Diagrams: 09/02/22 05:30 09/02/22 05:30 Lab Results-Last 24 Hrs: Lab Results-Last 24 Hours 09/01/22 09/01/22 09/01/22 Range/Units 07:46 11:45 15:42 WBC (4.0-10.5) x10^3/uL RBC (4.1-5.6) x10^6/uL Hgb (12.5-18.0) g/dL Hct (42-50) % MCV (78-100) fL MCH (26-32) pg MCHC (32-36) g/dL RDW (11.5-14.0) % Plt Count (150-450) x10^3/uL MPV (7.5-11.0) fL Gran % (36.0-66.0) % Immature Gran % (Auto) (0.00-0.4) % Nucleat RBC Rel Count (0.00-0.1) % Eos # (Auto) (0-0.5) x10^3/uL Immature Gran # (Auto) (0.00-0.03) x10^3u/L Absolute Lymphs (auto) (1.0-4.6) x10^3/uL Absolute Monos (auto) (0.0-1.3) x10^3/uL Absolute Nucleated RBC (0.00-0.01) x10^3u/L Lymphocytes % (24.0-44.0) % Monocytes % (0.0-12.0) % Eosinophils % (0.00-5.0) % Basophils % (0.0-0.4) % Absolute Granulocytes (1.4-6.9) x10^3/uL Basophils # (0-0.4) x10^3/uL Sodium (137-145) mmol/L Potassium (3.5-5.1) mmol/L Chloride (98-107) mmol/L Carbon Dioxide (22-30) mmol/L Anion Gap (5-15) MEQ/L BUN (9-20) mg/dL Creatinine (0.66-1.25) mg/dL Estimated GFR ML/MIN Glucose (74-106) mg/dL POC Glucometer 338 H (74 to 106) mg/dL Calcium (8.4-10.2) mg/dL NT-Pro-B Natriuret Pep (0-900) pg/mL Vitamin B12 (239-931) pg/mL TSH 3rd Generation 2.300 (0.47-4.68) mIU/L Slides for Path Review YES 09/01/22 09/01/22 09/01/22 Range/Units 15:42 16:11 21:31 WBC (4.0-10.5) x10^3/uL RBC (4.1-5.6) x10^6/uL Hgb (12.5-18.0) g/dL Hct (42-50) % MCV (78-100) fL MCH (26-32) pg MCHC (32-36) g/dL RDW (11.5-14.0) % Plt Count (150-450) x10^3/uL MPV (7.5-11.0) fL Gran % (36.0-66.0) % Immature Gran % (Auto) (0.00-0.4) % Nucleat RBC Rel Count (0.00-0.1) % Eos # (Auto) (0-0.5) x10^3/uL Immature Gran # (Auto) (0.00-0.03) x10^3u/L Absolute Lymphs (auto) (1.0-4.6) x10^3/uL Absolute Monos (auto) (0.0-1.3) x10^3/uL Absolute Nucleated RBC (0.00-0.01) x10^3u/L Lymphocytes % (24.0-44.0) % Monocytes % (0.0-12.0) % Eosinophils % (0.00-5.0) % Basophils % (0.0-0.4) % Absolute Granulocytes (1.4-6.9) x10^3/uL Basophils # (0-0.4) x10^3/uL Sodium (137-145) mmol/L Potassium (3.5-5.1) mmol/L Chloride (98-107) mmol/L Carbon Dioxide (22-30) mmol/L Anion Gap (5-15) MEQ/L BUN (9-20) mg/dL Creatinine (0.66-1.25) mg/dL Estimated GFR ML/MIN Glucose (74-106) mg/dL POC Glucometer 361 H 375 H (74 to 106) mg/dL Calcium (8.4-10.2) mg/dL NT-Pro-B Natriuret Pep (0-900) pg/mL Vitamin B12 941 H (239-931) pg/mL TSH 3rd Generation (0.47-4.68) mIU/L Slides for Path Review 09/02/22 09/02/22 09/02/22 Range/Units 05:30 05:30 06:51 WBC 9.7 (4.0-10.5) x10^3/uL RBC 5.23 (4.1-5.6) x10^6/uL Hgb 14.4 (12.5-18.0) g/dL Hct 45.2 (42-50) % MCV 86.4 (78-100) fL MCH 27.5 (26-32) pg MCHC 31.9 L (32-36) g/dL RDW 16.8 H (11.5-14.0) % Plt Count 255 (150-450) x10^3/uL MPV 11.3 H (7.5-11.0) fL Gran % 81.2 H (36.0-66.0) % Immature Gran % (Auto) 0.7 H (0.00-0.4) % Nucleat RBC Rel Count 0.0 (0.00-0.1) % Eos # (Auto) 0 (0-0.5) x10^3/uL Immature Gran # (Auto) 0.07 H (0.00-0.03) x10^3u/L Absolute Lymphs (auto) 1.28 (1.0-4.6) x10^3/uL Absolute Monos (auto) 0.44 (0.0-1.3) x10^3/uL Absolute Nucleated RBC 0.00 (0.00-0.01) x10^3u/L Lymphocytes % 13.2 L (24.0-44.0) % Monocytes % 4.6 (0.0-12.0) % Eosinophils % 0.0 (0.00-5.0) % Basophils % 0.3 (0.0-0.4) % Absolute Granulocytes 7.85 H (1.4-6.9) x10^3/uL Basophils # 0.03 (0-0.4) x10^3/uL Sodium 130 L (137-145) mmol/L Potassium 4.3 (3.5-5.1) mmol/L Chloride 97 L (98-107) mmol/L Carbon Dioxide 30 (22-30) mmol/L Anion Gap 7.5 (5-15) MEQ/L BUN 30 H (9-20) mg/dL Creatinine 0.89 (0.66-1.25) mg/dL Estimated GFR > 60.0 ML/MIN Glucose 415 H (74-106) mg/dL POC Glucometer 409 H (74 to 106) mg/dL Calcium 8.2 L (8.4-10.2) mg/dL NT-Pro-B Natriuret Pep 6140 H (0-900) pg/mL Vitamin B12 (239-931) pg/mL TSH 3rd Generation (0.47-4.68) mIU/L Slides for Path Review Micro Results-Entire Visit: Microbiology 08/30/22 18:10 Blood Culture - Preliminary Blood NO GROWTH TO DATE 08/30/22 16:10 Blood Culture - Preliminary Blood NO GROWTH TO DATE Accuchecks Date 09/02/22 Date 09/01/22 Date 09/01/22 Time 07:12 Time 11:58 - Radiology Exams Ordered Rad Exams-Entire Visit: Radiology Procedures Category Date Time Status HEAD WITHOUT CONTRAST [CT] Routine Exams 09/01/22 16:04 Completed - Procedures and Test Procedures and Tests throughout Hospitalization: Therapy Orders & Screens 08/30/22 16:57 Respiratory Therapy Assessment DAILY Comment: Discharge Exam General Appearance: no apparent distress, obese Neurologic Exam: alert, oriented x 3, cooperative Respiratory Exam: diminished breath sounds, prolonged expirations, No crackles/rales, No rhonchi, No wheezing Cardiovascular Exam: regular rate/rhythm, normal heart sounds Gastrointestinal/Abdomen Exam: soft, No tenderness, No mass Extremity Exam: pedal edema Skin Exam: normal color, warm, dry Wound Assessment: Skin/Wound Assessment Wound/Incision Assessment Start: 08/30/22 22:50 Text: Status: Active Freq: Q6H Protocol: Document 09/02/22 04:00 RB (Rec: 09/02/22 06:02 RB [id number]) Wound/Incision Assessment Left Heel Drainage Amount None General Appearance Open to air Final Diagnosis/Problem List - Final Discharge Diagnosis/Problem (1) Pneumonia Current Visit: Yes Status: Acute Code(s): J18.9 - PNEUMONIA, UNSPECIFIED ORGANISM (2) RSV (acute bronchiolitis due to respiratory syncytial virus) Current Visit: Yes Status: Acute (3) Acute CHF (congestive heart failure) Current Visit: No Status: Acute Code(s): I50.9 - HEART FAILURE, UNSPECIFIED (4) CVA, old, cognitive deficits Current Visit: Yes Status: Acute Code(s): I69.319 - UNSP SYMPTOMS AND SIGNS W COGN FNCTNS FOL CEREBRAL INFRC - Discharge Disposition: Home, Self-Care Condition: Stable Prescriptions: New Cefdinir 300 mg PO BID #14 cap Continue Gabapentin [Neurontin] 600 mg PO BID Atorvastatin Calcium [Lipitor 20MG Tablet] 20 mg PO HS Duloxetine HCl 30 mg [Cymbalta 30 MG Capsule] 60 mg PO DAILY Benazepril HCl 40 mg PO DAILY Hydralazine HCl 50 mg PO BID Metoprolol Tartrate 50 mg PO BID Metformin HCl 1000 mg [Glucophage 1000 MG] 1,000 mg PO BID Empagliflozin [Jardiance] 25 mg PO DAILY Trazodone HCl 100 mg PO HS Tamsulosin HCl 0.4 mg [Flomax 0.4 MG] 0.4 mg PO HS Ammonium Lactate [Ammonium Lactate 12%] 1 applic TP HS Insulin Detemir [Levemir] 15 unit SQ HS #1 unit Potassium Chloride Tab* [Klor Con] 20 meq PO QHS dilTIAZem HCL [Diltiazem 24Hr ER (Xr)] 120 mg PO DAILY Potassium Chloride 40 meq PO DAILY Furosemide 20 mg [Lasix 20 mg] 60 mg PO BID Apixaban [Eliquis 2.5 mg Tablet] 5 mg PO BID Magnesium Oxide 400 mg [Mag-Ox 400] 400 mg PO TID Clonidine HCl 0.1 mg [Clonidine 0.1 mg Tablet] 0.2 mg PO TID Follow up with: IRVING HENRY MD [Primary Care Provider] -
[2022-09-02] MEDS: ELIQUIS 2.5 MG TABLET PO SCH (09:17)
[2022-09-02] MEDS: Klor Con PO SCH (09:17)
[2022-09-02] MEDS: Lasix 40 MG/4 ML IV SCH (09:17)
[2022-09-02] MEDS: PROTONIX 40 MG IV IV SCH (09:17)
[2022-09-02] MEDS: Cymbalta 30 MG Capsule PO SCH (09:17)
[2022-09-02] MEDS: Cardizem CD PO SCH (09:18)
[2022-09-02] MEDS: MAG-OX 400 PO SCH (09:18)
[2022-09-02] MEDS: NEURONTIN PO SCH (09:18)
[2022-09-02] MEDS: CLONIDINE 0.1 MG TABLET PO SCH (09:27)
[2022-09-02] MEDS: Lopressor 50 MG PO SCH (09:27)
[2022-09-02] MEDS: Apresoline 25 MG TABLET PO SCH (09:27)
[2022-09-02] MEDS: Lotensin PO SCH (09:29)
[2022-09-04 11:15] LABS: RPR Non Reactive (Non Reactive)
== END 2022-09-02 11:14 | disposition home or self-care (01) ==
LOC: ED 16:04 → MED SURG 21:20
PROVIDERS: ADMIT General Practice; ATTEND Family Medicine
DX: J18.9 Pneumonia, unspecified organism (principal); B97.4 Respiratory syncytial virus as the cause of diseases classified elsewhere; I11.0 Hypertensive heart disease with heart failure; I50.9 Heart failure, unspecified; I69.319 Unspecified symptoms and signs involving cognitive functions following cerebral infarction; E78.5 Hyperlipidemia, unspecified; E11.9 Type 2 diabetes mellitus without complications; I48.91 Unspecified atrial fibrillation; S90.812A Abrasion, left foot, initial encounter; R77.8 Other specified abnormalities of plasma proteins; Z79.899 Other long term (current) drug therapy; Z20.828 Contact with and (suspected) exposure to other viral communicable diseases; Z72.0 Tobacco use; Z79.01 Long term (current) use of anticoagulants
CPT/HCPCS: 0241U; 36415; 36600; 51701; 51702; 70450; 71045; 71250; 80048; 80053; 82375; 82607; 82803; 82947; 83036; 83605; 83735; 83880; 84145; 84443; 84484; 85025; 85610; 85730; 86592; 87040; 93005; 93041; 93268; 94640; 94760; 96360; 96365; 96367; 96374; 99285; 99291; G0378; J0456; J0696; J1817; J1940; J2920; A9270-GY

== ENCOUNTER 2022-09-14 21:00 | Observation (INO) | payer OTHER ==
[2022-09-14] MEDS ORDERED: solu-MEDROL 125 MG, Sterile H2O 10 ml 2 ML IV ONE ×2 (21:42)
[2022-09-14] MEDS ORDERED: PROVENTIL 2.5 MG/3 ML NEB IH ONE ×2 (21:42→21:45)
[2022-09-14] MEDS ORDERED: solu-MEDROL ONE (22:01)
[2022-09-14] MEDS ORDERED: Sterile H2O 10 ml IJ ONE (22:01)
[2022-09-14 22:10] LABS: Absolute Neutrophil Ct (ANC) 10.81 x10^3/uL (1.4-6.9); Basophil (Absolute #) 0.13 x10^3/uL (0-0.4); Eosinophil (Absolute #) 0 x10^3/uL (0-0.5); Hemoglobin 16.3 g/dL (12.5-18.0); Lymphocytes % 4.1 % (24.0-44.0); Mean Cell Volume 90.1 fL (78-100); Mean Corpuscular Hemoglobin 27.7 pg (26-32); Mean Corpuscular Hgb Concent. 30.8 g/dL (32-36); Mean Platelet Volume 11.8 fL (7.5-11.0); Monocyte (Absolute #) 0.74 x10^3/uL (0.0-1.3); Neutrophil % 88.1 % (36.0-66.0); Platelet Count 225 x10^3/uL (150-450); Red Blood Count 5.88 x10^6/uL (4.1-5.6); White Blood Count 12.3 x10^3/uL (4.0-10.5)
[2022-09-14 22:25] LABS: ALBUMIN 4.2 g/dL (3.5-5.0); ALKALINE PHOSPHATASE 313 U/L (38-126); ANION GAP 15.8 MEQ/L (5-15); BLOOD UREA NITROGEN 31 mg/dL (9-20); CHLORIDE 101 mmol/L (98-107); Calcium 9.2 mg/dL (8.4-10.2); Carbon Dioxide 29 mmol/L (22-30); Creatinine 1 1.25 mg/dL (0.66-1.25); EST GLOMERULAR FILTRATION RATE > 60.0 ML/MIN; Glucose 249 mg/dL (74-106); Potassium 4.2 mmol/L (3.5-5.1); SGOT/AST 52 U/L (17-59); SGPT/ALT 49 U/L (0-50); SODIUM 141 mmol/L (137-145); Total Protein 7.8 g/dL (6.3-8.2)
--- NOTE | 2022-09-14 22:34 | ERPHSYRPT ---
- History of Present Illness Time Seen by Provider: 09/14/22 23:03 Source: patient Exam Limitations: no limitations Patient Subjective Stated Complaint: pt daughter states that pt was sick with RSV on thanksgiving and was admitted to hospital, pt was discharged on the 24 a nd was feeling better afterwards and completed a course of cefdinir. today pt is feeling very short of breath. pt has 3+ pitting edema in abdomen and BLE. Triage Nursing Assessment: pt is alert and oriented, and was taken back to room with wheelchair, pt is struggling to catch breath and cannot lay play. pt sitting supine in bed and was put on 2L of O2. Pt has intermittent cough that is not productive at this time, but states that he sometimes coughs up yellow mucus. sats are 96% on @L. Physician History: Patient is a 62-year-old male with a history of A. fib with RVR and congestive heart failure. Patient presents to our ED with moderate shortness of breath and a cough daughter at bedside states patient had RSV on Thanksgi. He was ho spitalized and discharged on 02 September. Patient felt somewhat better but gradually became more short of breath. Patient completed a course of cefdinir. Shortness of breath worse on laying flat. No trauma. No fever. Symptoms are progressive. Symptoms are moderate in intensity. Daughter states patient has been compliant with his home medications. He takes his CD of Lasix twice a day. Patient's advertising account executive is Dr. Trevizo Patient daughter voiced no other complaints or concerns at this time. Portions of this note were created with voice recognition technology. There may be grammatical, spelling, punctuation or sound alike errors Timing/Duration: today Activities at Onset: activity Severity of Dyspnea-Max: moderate Severity of Dyspnea-Current: mild Possible Cause: occasional episodes Modifying Factors: Improves With: activity Associated Symptoms: denies symptoms Allergies/Adverse Reactions: No Known Drug Allergies Allergy (Verified 08/30/22 16:06) Home Medications: Atorvastatin Calcium [Lipitor 20MG Tablet] 20 mg PO HS 08/12/16 [History] Benazepril HCl 40 mg PO DAILY 08/12/16 [History] Duloxetine HCl 30 mg [Cymbalta 30 MG Capsule] 60 mg PO DAILY 08/12/16 [History] Empagliflozin [Jardiance] 25 mg PO DAILY 08/12/16 [History] Gabapentin [Neurontin] 600 mg PO BID 08/12/16 [History] Hydralazine HCl 50 mg PO BID 08/12/16 [History] Metformin HCl 1000 mg [Glucophage 1000 MG] 1,000 mg PO BID 08/12/16 [History] Metoprolol Tartrate 50 mg PO BID 08/12/16 [History] Trazodone HCl 100 mg PO HS 08/12/16 [History] Ammonium Lactate [Ammonium Lactate 12%] 1 applic TP HS 03/11/22 [History] Tamsulosin HCl 0.4 mg [Flomax 0.4 MG] 0.4 mg PO HS 03/11/22 [History] Apixaban [Eliquis 2.5 mg Tablet] 5 mg PO BID 08/31/22 [History] Clonidine HCl 0.1 mg [Clonidine 0.1 mg Tablet] 0.2 mg PO TID 08/31/22 [History] Furosemide 20 mg [Lasix 20 mg] 60 mg PO BID 08/31/22 [History] Magnesium Oxide 400 mg [Mag-Ox 400] 400 mg PO TID 08/31/22 [History] Potassium Chloride 40 meq PO DAILY 08/31/22 [History] Potassium Chloride Tab* [Klor Con] 20 meq PO QHS 08/31/22 [History] dilTIAZem HCL [Diltiazem 24Hr ER (Xr)] 120 mg PO DAILY 08/31/22 [History] Hx Tetanus, Diphtheria Vaccination/Date Given: No Hx Influenza Vaccination/Date Given: No Hx Pneumococcal Vaccination/Date Given: No Travel Risk - International Travel Have you traveled outside of the country in past 3 weeks: No - Coronavirus Screening Are you exhibiting any of the following symptoms?: Yes Symptoms: Shortness of Breath - Vaccine Status Have you recieved a Covid-19 vaccination: No - Review of Systems Constitutional: No Symptoms, No Fever, No Chills Eyes: No Symptoms Ears, Nose, & Throat: No Symptoms Respiratory: No Symptoms, No Cough, No Dyspnea Cardiac: No Symptoms, No Chest Pain, No Edema, No Syncope Abdominal/Gastrointestinal: No Symptoms, No Abdominal Pain, No Nausea, No Vomiting, No Diarrhea Genitourinary Symptoms: No Symptoms, No Dysuria Musculoskeletal: No Symptoms, No Back Pain, No Neck Pain Skin: No Symptoms, No Rash Neurological: No Symptoms, No Dizziness, No Focal Weakness, No Sensory Changes Psychological: No Symptoms Endocrine: No Symptoms Hematologic/Lymphatic: No Symptoms Immunological/Allergic: No Symptoms All Other Systems: Reviewed and Negative - Past Medical History Pertinent Past Medical History: Yes Neurological History: TIA ENT History: Other Cardiac History: Arrhythmia, Congenital Heart Disease, High Cholesterol, Hypertension, Other Respiratory History: No Pertinent History Endocrine Medical History: Diabetes Type II Musculoskeletal History: No Pertinent History GI Medical History: No Pertinent History History: No Pertinent History Psycho-Social History: Anxiety, Depression Male Reproductive Disorders: No Pertinent History Other Medical History: pt states vision is blurry- may have mac deg. Has been told his heart is enlarged. daughter answering questions. Pt is a poor historian. RSV, diagnosis of AFIB in march 2022. Takes Eliquis - Past Surgical History Past Surgical History: Yes Musculoskeletal: Orthopedic Surgery Other Surgical History: shoulder - Social History Smoking Status: Current some day smoker How long have you smoked: 45 Exposure to second hand smoke: Yes Drug Use: none Patient Lives Alone: Yes Significant Family History: no pertinent family hx - Nursing Vital Signs Nursing Vital Signs: Initial Vital Signs Temperature 97.2 F 09/14/22 21:01 Pulse Rate 80 09/14/22 21:01 Respiratory Rate 26 H 09/14/22 21:01 Blood Pressure 142/116 09/14/22 21:01 O2 Sat by Pulse Oximetry 91 L 09/14/22 21:01 Pain Scale Pain Intensity 0 - Physical Exam General Appearance: no apparent distress, alert, other (Mild respiratory distress) Eye Exam: PERRL/EOMI, eyes nml inspection, No scleral icterus Ears, Nose, Throat Exam: hearing grossly normal, normal ENT inspection, normal pharynx Neck Exam: normal inspection, non-tender, supple, full range of motion Respiratory Exam: respiratory distress, crackles/rales, rhonchi Cardiovascular/Chest Exam: normal heart sounds, regular rate/rhythm, No murmur Abdominal/Gastrointestinal Exam: soft, normal bowel sounds, No tenderness, No distention, No mass Extremity Exam: non-tender, normal range of motion, normal inspection, no calf tenderness, no pedal edema, swelling (3+ lower extremity pitting edema.) Neurologic Exam: alert, oriented x 3, cooperative, data analysis intern II-XII nml as tested, sensation nml, No motor deficits Skin Exam: normal color, warm, No dry Lymphatic Exam: No adenopathy SpO2 Interpretation: normal SpO2: 94 O2 Delivery: Nasal Cannula - Course Nursing assessment & vital signs reviewed: Yes EKG Interpreted by Me: RATE (104), A-fib, NORMAL AXIS, NORMAL INTERVALS - CT Exams Chest CT Interpretation: Tele-radiologist Report (Patchy bilateral largely right middle and lower lobe airspace infiltrates. Large right pleural effusion. C ardiomegaly coronary artery atherosclerotic calcifications. Scattered prominent mediastinal lymph nodes measuring up to 10 mm in the short axis. Unremarkable with no aortic dissection. Anas) Ordered Tests: Active Orders 24 hr Category Date Time Status Financial Sales Representative STAT Care 09/14/22 21:41 Active EKG-ER Only STAT Care 09/14/22 21:41 Active IV Insertion STAT Care 09/14/22 21:41 Active Pulse Oximetry (ED) STAT Care 09/14/22 21:41 Active CHEST WITH CONTRAST [CT] Stat Exams 09/14/22 22:43 Taken ABG [ARTERIAL BLOOD GASES] Stat Lab 09/15/22 00:22 Completed BLOOD CULTURE Stat Lab 09/14/22 22:00 Received BNP [NT PRO BNP] Stat Lab 09/14/22 22:00 Completed CBC W DIFF Stat Lab 09/14/22 21:50 Completed CMP Stat Lab 09/14/22 21:50 Completed D-DIMER QUANTITATIVE Stat Lab 09/14/22 21:50 Completed TROPONIN Q4H Lab 09/14/22 21:50 Completed TROPONIN Q4H Lab 09/15/22 01:45 Ordered TROPONIN Q4H Lab 09/15/22 05:45 Ordered BiPap/CPAP ROUTINE RT 09/15/22 00:28 Active Respiratory Therapy Assessment DAILY RT 09/14/22 22:04 Active Medication Summary Generic Name Dose Route Start Last Admin Trade Name Freq PRN Reason Stop Dose Admin Nitroglycerin/Dextrose 250 mls @ 1.5 mls/hr 09/14/22 23:18 09/14/22 23:43 Ntg 0.2mg/Ml In D5w Glass IV 10/14/22 23:17 5 mcg/min .Q24H PRN 1.5 mls/hr CHEST PAIN Administration Protocol 5 MCG/MIN Azithromycin 500 mg in 250 mls @ 250 mls/hr 09/15/22 00:26 09/15/22 01:12 Zithromax 500 Mg/ 250 Ml Nacl Premix IV 09/15/22 01:25 250 ml/hr STAT STA 250 mls/hr Administration Discontinued Medications Generic Name Dose Route Start Last Admin Trade Name Bassem PRN Reason Stop Dose Admin Albuterol Sulfate 2.5 mg 09/14/22 21:42 09/14/22 21:50 Albuterol Sulfate 2.5 Mg/3 Ml Neb IH 09/14/22 21:43 2.5 mg STAT ONE Administration Albuterol Sulfate Confirm 09/14/22 21:45 Albuterol Sulfate 2.5 Mg/3 Ml Neb Administered 09/14/22 21:46 Dose 2.5 mg IH .STK-MED ONE Methylprednisolone Sodium 0 mg 09/14/22 21:42 09/14/22 22:01 Succinate 125 mg/ Sterile IV 09/14/22 21:43 125 mg Water 2 ml STAT ONE Administration Furosemide 60 mg 09/14/22 22:49 09/14/22 23:06 Furosemide 40 Mg/4 Ml Vial IV 09/14/22 22:50 60 mg STAT ONE Administration Furosemide Confirm 09/14/22 23:04 Furosemide 40 Mg/4 Ml Vial Administered 09/14/22 23:05 Dose 40 mg .ROUTE .STK-MED ONE Furosemide Confirm 09/14/22 23:07 Furosemide 20 Mg/Vial Administered 09/14/22 23:08 Dose 20 mg .ROUTE .STK-MED ONE Furosemide Confirm 09/14/22 23:10 Furosemide 40 Mg/4 Ml Vial Administered 09/14/22 23:11 Dose 40 mg .ROUTE .STK-MED ONE Ceftriaxone Sodium/Dextrose 2 g in 50 mls @ 100 mls/hr 09/15/22 00:25 09/15/22 00:39 Rocephin 2 Gm-D5w 50ml Bag IV 09/15/22 00:54 100 ml/hr STAT STA 100 mls/hr Administration Ceftriaxone Sodium/Dextrose Confirm 09/15/22 00:38 Rocephin 2 Gm-D5w 50ml Bag Administered 09/15/22 00:39 Dose 2 g in 50 mls @ ud IV .STK-MED ONE Azithromycin Confirm 09/15/22 01:09 Zithromax 500 Mg/ 250 Ml Nacl Premix Administered 09/15/22 01:10 Dose 500 mg in 250 mls @ ud IV .STK-MED ONE Methylprednisolone Sodium Succinate Confirm 09/14/22 22:01 Methylprednis Sod Succ 125 Mg/2 Ml Vial Administered 09/14/22 22:02 Dose 125 mg .ROUTE .STK-MED ONE Oseltamivir Phosphate 75 mg 09/14/22 23:24 09/14/22 23:43 Oseltamivir 75 Mg Cap PO 09/14/22 23:25 75 mg ONCE STA Administration Oseltamivir Phosphate Confirm 09/14/22 23:42 Oseltamivir 75 Mg Cap Administered 09/14/22 23:43 Dose 75 mg PO .STK-MED ONE Sterile Water Confirm 09/14/22 22:01 Water For Injection,Sterile 10 Ml Vial Administered 09/14/22 22:02 Dose 10 ml IJ .[employer] is Tech-MED ONE Lab/Rad Data: Laboratory Result Diagrams 09/14/22 21:50 09/14/22 21:50 Laboratory Results 09/15/22 09/14/22 09/14/22 Range/Units 00:22 22:00 22:00 WBC (4.0-10.5) x10^3/uL RBC (4.1-5.6) x10^6/uL Hgb (12.5-18.0) g/dL Hct (42-50) % MCV (78-100) fL MCH (26-32) pg MCHC (32-36) g/dL RDW (11.5-14.0) % Plt Count (150-450) x10^3/uL MPV (7.5-11.0) fL Gran % (36.0-66.0) % Immature Gran % (Auto) (0.00-0.4) % Nucleat RBC Rel Count (0.00-0.1) % Eos # (Auto) (0-0.5) x10^3/uL Immature Gran # (Auto) (0.00-0.03) x10^3u/L Absolute Lymphs (auto) (1.0-4.6) x10^3/uL Absolute Monos (auto) (0.0-1.3) x10^3/uL Absolute Nucleated RBC (0.00-0.01) x10^3u/L Lymphocytes % (24.0-44.0) % Monocytes % (0.0-12.0) % Eosinophils % (0.00-5.0) % Basophils % (0.0-0.4) % Absolute Granulocytes (1.4-6.9) x10^3/uL Basophils # (0-0.4) x10^3/uL D-Dimer (0.0-0.50) mg/L Puncture Site RIGHT BRACHIAL pCO2 42 (35-45) mmHg pO2 154 H* (75-100) mmHg Base Excess 3.1 H (-2.0-2.0) O2 Saturation 97.0 (94-100) g/dF ABG pH 7.43 (7.35-7.45) ABG HCO3 27.9 (22-28) ABG O2 Sat (Measured) 99.2 (95-100) % Phil Test NOT APPLICABLE A-a Gradient 150 a/A Ratio 0.51 Hemoglobin 15.7 Carboxyhemoglobin 1.5 (0.0-6.9) % THgb Methemoglobin 0.7 L (1.4-1.5) % Temperature 37.0 C POC O2 Flow Rate 50 % Inspiratory BiPAP 16 Expiratory BiPAP 8 Sodium (137-145) mmol/L Potassium 3.9 (3.5-5.1) mmol/L Chloride (98-107) mmol/L Carbon Dioxide (22-30) mmol/L Anion Gap (5-15) MEQ/L BUN (9-20) mg/dL Creatinine (0.66-1.25) mg/dL Estimated GFR ML/MIN Glucose (74-106) mg/dL Calcium (8.4-10.2) mg/dL Total Bilirubin (0.2-1.3) mg/dL AST (17-59) U/L ALT (0-50) U/L Alkaline Phosphatase (38-126) U/L Troponin I (0.000-0.034) ng/mL NT-Pro-B Natriuret Pep 8730 H (0-900) pg/mL Serum Total Protein (6.3-8.2) g/dL Albumin (3.5-5.0) g/dL Influenza Type A Ag POSITIVE (NEGATIVE) Influenza Type B Ag NEGATIVE (NEGATIVE) RSV (PCR) NEGATIVE (Negative) SARS-CoV-2 (PCR) NEGATIVE (NEGATIVE) 09/14/22 09/14/22 09/14/22 Range/Units 21:50 21:50 21:50 WBC (4.0-10.5) x10^3/uL RBC (4.1-5.6) x10^6/uL Hgb (12.5-18.0) g/dL Hct (42-50) % MCV (78-100) fL MCH (26-32) pg MCHC (32-36) g/dL RDW (11.5-14.0) % Plt Count (150-450) x10^3/uL MPV (7.5-11.0) fL Gran % (36.0-66.0) % Immature Gran % (Auto) (0.00-0.4) % Nucleat RBC Rel Count (0.00-0.1) % Eos # (Auto) (0-0.5) x10^3/uL Immature Gran # (Auto) (0.00-0.03) x10^3u/L Absolute Lymphs (auto) (1.0-4.6) x10^3/uL Absolute Monos (auto) (0.0-1.3) x10^3/uL Absolute Nucleated RBC (0.00-0.01) x10^3u/L Lymphocytes % (24.0-44.0) % Monocytes % (0.0-12.0) % Eosinophils % (0.00-5.0) % Basophils % (0.0-0.4) % Absolute Granulocytes (1.4-6.9) x10^3/uL Basophils # (0-0.4) x10^3/uL D-Dimer 1.20 H* (0.0-0.50) mg/L Puncture Site pCO2 (35-45) mmHg pO2 (75-100) mmHg Base Excess (-2.0-2.0) O2 Saturation (94-100) g/dF ABG pH (7.35-7.45) ABG HCO3 (22-28) ABG O2 Sat (Measured) (95-100) % Phil Test A-a Gradient a/A Ratio Hemoglobin Carboxyhemoglobin (0.0-6.9) % THgb Methemoglobin (1.4-1.5) % Temperature C POC O2 Flow Rate % Inspiratory BiPAP Expiratory BiPAP Sodium 141 (137-145) mmol/L Potassium 4.2 (3.5-5.1) mmol/L Chloride 101 (98-107) mmol/L Carbon Dioxide 29 (22-30) mmol/L Anion Gap 15.8 H (5-15) MEQ/L BUN 31 H (9-20) mg/dL Creatinine 1.25 (0.66-1.25) mg/dL Estimated GFR > 60.0 ML/MIN Glucose 249 H (74-106) mg/dL Calcium 9.2 (8.4-10.2) mg/dL Total Bilirubin 1.90 H (0.2-1.3) mg/dL AST 52 (17-59) U/L ALT 49 (0-50) U/L Alkaline Phosphatase 313 H (38-126) U/L Troponin I 0.082 H* (0.000-0.034) ng/mL NT-Pro-B Natriuret Pep (0-900) pg/mL Serum Total Protein 7.8 (6.3-8.2) g/dL Albumin 4.2 (3.5-5.0) g/dL Influenza Type A Ag (NEGATIVE) Influenza Type B Ag (NEGATIVE) RSV (PCR) (Negative) SARS-CoV-2 (PCR) (NEGATIVE) 09/14/22 Range/Units 21:50 WBC 12.3 H (4.0-10.5) x10^3/uL RBC 5.88 H (4.1-5.6) x10^6/uL Hgb 16.3 (12.5-18.0) g/dL Hct 53.0 H (42-50) % MCV 90.1 (78-100) fL MCH 27.7 (26-32) pg MCHC 30.8 L (32-36) g/dL RDW 19.0 H (11.5-14.0) % Plt Count 225 (150-450) x10^3/uL MPV 11.8 H (7.5-11.0) fL Gran % 88.1 H (36.0-66.0) % Immature Gran % (Auto) 0.7 H (0.00-0.4) % Nucleat RBC Rel Count 0.0 (0.00-0.1) % Eos # (Auto) 0 (0-0.5) x10^3/uL Immature Gran # (Auto) 0.08 H (0.00-0.03) x10^3u/L Absolute Lymphs (auto) 0.50 L (1.0-4.6) x10^3/uL Absolute Monos (auto) 0.74 (0.0-1.3) x10^3/uL Absolute Nucleated RBC 0.00 (0.00-0.01) x10^3u/L Lymphocytes % 4.1 L (24.0-44.0) % Monocytes % 6.0 (0.0-12.0) % Eosinophils % 0.0 (0.00-5.0) % Basophils % 1.1 (0.0-0.4) % Absolute Granulocytes 10.81 H (1.4-6.9) x10^3/uL Basophils # 0.13 (0-0.4) x10^3/uL D-Dimer (0.0-0.50) mg/L Puncture Site pCO2 (35-45) mmHg pO2 (75-100) mmHg Base Excess (-2.0-2.0) O2 Saturation (94-100) g/dF ABG pH (7.35-7.45) ABG HCO3 (22-28) ABG O2 Sat (Measured) (95-100) % Phil Test A-a Gradient a/A Ratio Hemoglobin Carboxyhemoglobin (0.0-6.9) % THgb Methemoglobin (1.4-1.5) % Temperature C POC O2 Flow Rate % Inspiratory BiPAP Expiratory BiPAP Sodium (137-145) mmol/L Potassium (3.5-5.1) mmol/L Chloride (98-107) mmol/L Carbon Dioxide (22-30) mmol/L Anion Gap (5-15) MEQ/L BUN (9-20) mg/dL Creatinine (0.66-1.25) mg/dL Estimated GFR ML/MIN Glucose (74-106) mg/dL Calcium (8.4-10.2) mg/dL Total Bilirubin (0.2-1.3) mg/dL AST (17-59) U/L ALT (0-50) U/L Alkaline Phosphatase (38-126) U/L Troponin I (0.000-0.034) ng/mL NT-Pro-B Natriuret Pep (0-900) pg/mL Serum Total Protein (6.3-8.2) g/dL Albumin (3.5-5.0) g/dL Influenza Type A Ag (NEGATIVE) Influenza Type B Ag (NEGATIVE) RSV (PCR) (Negative) SARS-CoV-2 (PCR) (NEGATIVE) - Departure Departure Disposition: Observation Clinical Impression: Atrial fibrillation, Elevated troponin, Hyperglycemia, CHF (congestive heart failure), Elevated brain natriuretic peptide (BNP) level, Influenza A, Pneumonia, Anasarca, Pleural effusion, right, Cardiomegaly, Coronary atherosclerosis due to calcified coronary lesion of [place] artery, Bilateral airspace infiltrates, Mediastinal lymph nodes Condition: Stable Critical Care Time: No Referrals: IRVING HENRY MD [Primary Care Provider] - Follow up/PCP as directed Instructions: Heart Failure
[2022-09-14] MEDS ORDERED: Lasix 40 MG/4 ML IV ONE (22:49)
[2022-09-14] MEDS ORDERED: Lasix 40 MG/4 ML ONE ×2 (23:04→23:10)
[2022-09-14] MEDS ORDERED: Lasix 20 MG/2 ML ONE (23:07)
[2022-09-14 23:17] LABS: INFLUENZA B NEGATIVE (NEGATIVE); RESPIRATORY SYNCTIAL VIRUS NEGATIVE (Negative); SARS-CoV-2 Xpert Express NEGATIVE (NEGATIVE)
[2022-09-14] MEDS ORDERED: Ntg 0.2MG/Ml in D5W GLASS*** 250 ML IV PRN (23:18)
[2022-09-14] MEDS ORDERED: HOLD METFORMIN PRODUCTS FOR 48 HOURS MC SCH (23:20)
[2022-09-14 23:24] LABS: INFLUENZA A POSITIVE (NEGATIVE)
[2022-09-14] MEDS ORDERED: Tamiflu 75MG Capsule PO STA (23:24)
[2022-09-14] MEDS ORDERED: Tamiflu 75MG Capsule PO ONE (23:42)
[2022-09-15] MEDS ORDERED: ROCEPHIN 2 Gm-D5w 50ML BAG** 2 G/50 ML IVPB IV STA (00:25)
[2022-09-15] MEDS ORDERED: Zithromax 500 MG/ 250 ML NaCl Premix 500 MG/250 ML IVPB IV STA (00:26)
[2022-09-15 00:27] LABS: A-aADO2 150; ABG HEMOGLOBIN 15.7; ABG POTASSIUM 3.9 (3.5-5.1); ARTERIAL BLD GAS O2 SATURATION 99.2 % (95-100); ARTERIAL BLOOD GAS BASE EXCESS 3.1 (-2.0-2.0); ARTERIAL BLOOD GAS FIO2 50 %; ARTERIAL BLOOD GAS PCO2 42 mmHg (35-45); ARTERIAL BLOOD GAS PO2 154 mmHg (75-100); ARTERIAL BLOOD GAS pH 7.43 (7.35-7.45); CARBOXYHEMOGLOBIN 1.5 % THgb (0.0-6.9); HCO3- 27.9 (22-28); Methhemoglobin 0.7 % (1.4-1.5)
[2022-09-15 00:28] LABS: ABG SITE RIGHT BRACHIAL
[2022-09-15] MEDS ORDERED: ROCEPHIN 2 Gm-D5w 50ML BAG** 2 G/50 ML IVPB IV ONE (00:38)
[2022-09-15] MEDS ORDERED: Zithromax 500 MG/ 250 ML NaCl Premix 500 MG/250 ML IVPB IV ONE (01:09)
--- NOTE | 2022-09-15 09:05 | XRAY ---
Indication: Short of breath and cough. Elevated d-dimer. Pulmonary embolus. Multiple contiguous axial images obtained through the chest using 100 cc Isovue 370 contrast and PE protocol. Comparison: August 30, 2022 Good opacification of the pulmonary arteries. However respiration artifact limits evaluation the more distal lobar and segmental branches. No obvious pulmonary embolus. Heart remains enlarged. Aorta is normal in course and caliber without aneurysm/dissection. No pathologic mediastinal/hilar lymphadenopathy. Lungs demonstrates worsening large right effusion occupying at least 50% of the hemithorax with subsequent right mid to lower lung subsegmental atelectasis. Left lung is now clear. Bony thorax intact again with mild degenerative changes of the spine. Limited upper abdomen again demonstrates fatty liver with new incompletely visualized small perihepatic fluid. Incidental diffuse anasarca. Impression: 1. Pulmonary embolus evaluation limited by respiration artifact. No obvious pulmonary embolus. 2. Again cardiomegaly with worsening large right effusion and right lung subsegmental atelectasis. Also new diffuse anasarca and perihepatic fluid. Findings concerning for cardiac decompensation versus fluid overload. Comment: Preliminary interpretation made by C. No critical discrepancy.
[2022-09-15] MEDS ORDERED: NORVASC 5 MG PO ONE (12:01)
[2022-09-15] MEDS ORDERED: CLONIDINE 0.1 MG TABLET PO ONE (12:01)
[2022-09-15] MEDS ORDERED: NORVASC 5 MG ONE (12:22)
[2022-09-15] MEDS ORDERED: CLONIDINE 0.1 MG TABLET ONE (12:22)
[2022-09-15] MEDS ORDERED: APRESOLINE 20 MG/ML INJ IV ONE (13:48)
[2022-09-15] MEDS ORDERED: APRESOLINE 20 MG/ML INJ ONE (13:53)
[2022-09-15] MEDS ORDERED: MILK OF MAGNESIA 30 ML PO PRN (15:25)
[2022-09-15] MEDS ORDERED: TYLENOL 325 MG PO PRN ×2 (15:25)
[2022-09-15] MEDS ORDERED: MAALOX ES 30 ML UNIT DOSE PO PRN (15:25)
[2022-09-15] MEDS ORDERED: Zofran 4 MG/2 ML VIAL IV PRN ×2 (15:25)
[2022-09-15] MEDS ORDERED: Senokot-S Tablet PO PRN (15:25)
[2022-09-15] MEDS ORDERED: MORPHINE SULFATE 2 MG INJ IV PRN (15:25)
[2022-09-15] MEDS: Ecotrin 325 MG PO SCH (17:09)
[2022-09-15] MEDS: Lotensin PO SCH (17:09)
[2022-09-15] MEDS: Klor Con PO SCH (17:09)
[2022-09-15] MEDS: Cardizem CD PO SCH (17:09)
[2022-09-15] MEDS: Cymbalta 30 MG Capsule PO SCH (17:09)
[2022-09-15] MEDS: Furosemide 100mg/10 ml Vial IV SCH (17:10)
[2022-09-15] MEDS: HUMALOG SQ PRN ×2 (17:10→23:20)
[2022-09-15] MEDS: solu-MEDROL 80 MG, Sterile H2O 10 ml 2 ML IV SCH ×4 (17:10→23:20)
[2022-09-15] MEDS: MAG-OX 400 PO SCH (21:54)
[2022-09-15] MEDS: Zocor 10MG PO SCH (21:55)
[2022-09-15] MEDS: ELIQUIS 2.5 MG TABLET PO SCH (21:55)
[2022-09-15] MEDS: ROCEPHIN 1 Gm-D5w 50 ml Bag** 1 G/50 ML IVPB IV SCH (21:55)
[2022-09-15] MEDS: Flomax 0.4 MG PO SCH (21:55)
[2022-09-15] MEDS ORDERED: Zithromax 500 MG/ 250 ML NaCl Premix 500 MG/250 ML IVPB IV SCH (22:00)
[2022-09-15] MEDS ORDERED: NON-FORMULARY ITEM (Atorvastatin Calcium 20 MG Tab) PO SCH (22:00)
[2022-09-16 04:47] LABS: Hematocrit 44.5 % (42-50); Hemoglobin 14.4 g/dL (12.5-18.0); Mean Cell Volume 86.7 fL (78-100); Mean Corpuscular Hemoglobin 28.1 pg (26-32); Mean Corpuscular Hgb Concent. 32.4 g/dL (32-36); Mean Platelet Volume 11.5 fL (7.5-11.0); Platelet Count 184 x10^3/uL (150-450); Red Blood Count 5.13 x10^6/uL (4.1-5.6); Red Cell Distribution Width 18.5 % (11.5-14.0); White Blood Count 5.4 x10^3/uL (4.0-10.5)
[2022-09-16 05:18] LABS: ANION GAP 7.7 MEQ/L (5-15); BLOOD UREA NITROGEN 38 mg/dL (9-20); CHLORIDE 101 mmol/L (98-107); Calcium 8.5 mg/dL (8.4-10.2); Carbon Dioxide 32 mmol/L (22-30); Cholesterol 143 mg/dL (50-200); Creatinine 1 0.99 mg/dL (0.66-1.25); EST GLOMERULAR FILTRATION RATE > 60.0 ML/MIN; Glucose 215 mg/dL (74-106); HDL CHOLESTEROL 47 mg/dL (40-60); LDL, DIRECT 59 mg/dL (30-100); NT PRO BNP 6020 pg/mL (0-900); Potassium 3.8 mmol/L (3.5-5.1); SODIUM 137 mmol/L (137-145); TRIGLYCERIDE 85 mg/dL (30-150)
[2022-09-16] MEDS: solu-MEDROL 80 MG, Sterile H2O 10 ml 2 ML IV SCH ×8 (06:25→23:55)
[2022-09-16] MEDS: HUMALOG SQ PRN ×4 (08:07→21:12)
--- NOTE | 2022-09-16 08:28 | PCM.HP ---
History of Present Illness - Chief Complaint Chief Complaint: CHF, PNEUMONIA, FLU, SOB, PLEURAL EFFUSION History of Present Illness: is a 62 year old male who presented to the ER with shortness of breath, found to have volume overload and flu A. hx of a fib, was cardioverted by Dr Poe in the past. on cardizem and eliquis, he denies chest pain. he is a very poor historian. - Review of Systems Constitutional: Fever Respiratory: Cough, Short Of Breath Cardiac: Edema, Orthopnea, No Chest Pain Abdominal/Gastrointestinal: No Abdominal Pain, No Nausea, No Vomiting, No Diarrhea Skin: No Rash All Other Systems: Reviewed and Negative Medications & Allergies Home Medications: Home Medication List Atorvastatin Calcium [Lipitor 20MG Tablet] 20 mg PO HS 08/12/16 [History Confirmed 09/14/22] Benazepril HCl 40 mg PO DAILY 08/12/16 [History Confirmed 09/14/22] Duloxetine HCl 30 mg [Cymbalta 30 MG Capsule] 60 mg PO DAILY 08/12/16 [History Confirmed 09/14/22] Empagliflozin [Jardiance] 25 mg PO DAILY 08/12/16 [History Confirmed 09/14/22] Metformin HCl 1000 mg [Glucophage 1000 MG] 1,000 mg PO BID 08/12/16 [History Confirmed 09/14/22] Tamsulosin HCl 0.4 mg [Flomax 0.4 MG] 0.4 mg PO HS 03/11/22 [History Confirmed 09/14/22] Apixaban [Eliquis 2.5 mg Tablet] 5 mg PO BID 08/31/22 [History Confirmed 09/14/22] Furosemide 20 mg [Lasix 20 mg] 60 mg PO BID 08/31/22 [History Confirmed 09/14/22] Magnesium Oxide 400 mg [Mag-Ox 400] 400 mg PO TID 08/31/22 [History Confirmed 09/14/22] Potassium Chloride 40 meq PO DAILY 08/31/22 [History Confirmed 09/14/22] Potassium Chloride Tab* [Klor Con] 20 meq PO EVENING MEAL 08/31/22 [History Confirmed 09/15/22] Diltiazem HCl [Cartia Xt] 120 mg PO DAILY 09/15/22 [History Confirmed 09/15/22] Allergies/Adverse Reactions: Allergies Allergy/AdvReac Type Severity Reaction Status Date / Time No Known Drug Allergies Allergy Verified 09/15/22 15:39 - Past Medical History Past Medical History: Yes Neurological History: TIA ENT History: Other Cardiac History: Arrhythmia, Congenital Heart Disease, High Cholesterol, Hypertension, Other Respiratory History: No Pertinent History Endocrine Medical History: Diabetes Type II Musculoskelatal History: No Pertinent History GI Medical History: No Pertinent History History: No Pertinent History Pyscho-Social History: Anxiety, Depression Male Reproductive Disorders: No Pertinent History Comment: pt states vision is blurry- may have mac deg. Has been told his heart is enlarged. daughter answering questions. Pt is a poor historian. RSV, diagnosis of AFIB in march 2022. Takes Eliquis - Past Surgical History Past Surgical History: Yes Neuro Surgical History: No Pertinent History Cardiac History: No Pertinent History Respiratory Surgery: No Pertinent History GI Surgical History: No Pertinent History Genitourinary Surgical Hx: No Pertinent History Musculskeletal Surgical Hx: Orthopedic Surgery Male Surgical History: No Pertinent History Other Surgical History: shoulder - Social History Smoking Status: Current some day smoker How long have you smoked: 20 YEARS Exposure to second hand smoke: No Alcohol: Rarely Drug Use: none Significant Family History: no pertinent family hx - Physical Exam Vital Signs: Vital Signs - 24 hr Temp Pulse Resp BP BP Pulse Ox 09/16/22 07:50 107 H 09/16/22 07:34 97.5 F 107 H 20 138/95 98 09/16/22 06:00 99 09/16/22 04:00 106 H 21 147/109 98 09/16/22 00:08 97.7 F 94 H 23 134/103 98 09/16/22 00:00 94 H 09/15/22 23:32 98 09/15/22 20:00 124 H 09/15/22 19:00 124 H 24 142/103 97 09/15/22 15:26 98.4 F 109 H 25 H 137/81 99 09/15/22 15:25 99 09/15/22 15:23 98.4 F 109 H 20 137/81 99 09/15/22 14:48 106 H 20 148/104 98 09/15/22 13:00 126 H 21 141/103 98 09/15/22 11:34 123 H 28 H 170/130 99 09/15/22 08:40 95 H 23 166/119 98 General Appearance: no apparent distress, obese Neurologic Exam: alert, cooperative Respiratory Exam: crackles/rales Cardiovascular Exam: irregular Gastrointestinal/Abdomen Exam: soft, normal bowel sounds, No tenderness, No mass Extremity Exam: pedal edema, swelling Results - Labs Lab/Micro Results: Lab Results-Last 24 Hours 09/15/22 09/15/22 09/15/22 Range/Units 15:40 16:01 22:32 WBC (4.0-10.5) x10^3/uL RBC (4.1-5.6) x10^6/uL Hgb (12.5-18.0) g/dL Hct (42-50) % MCV (78-100) fL MCH (26-32) pg MCHC (32-36) g/dL RDW (11.5-14.0) % Plt Count (150-450) x10^3/uL MPV (7.5-11.0) fL Sodium (137-145) mmol/L Potassium (3.5-5.1) mmol/L Chloride (98-107) mmol/L Carbon Dioxide (22-30) mmol/L Anion Gap (5-15) MEQ/L BUN (9-20) mg/dL Creatinine (0.66-1.25) mg/dL Estimated GFR ML/MIN Glucose (74-106) mg/dL POC Glucometer 312 H 238 H (74 to 106) mg/dL Calcium (8.4-10.2) mg/dL Troponin I 0.106 H* (0.000-0.034) ng/mL NT-Pro-B Natriuret Pep (0-900) pg/mL Triglycerides (30-150) mg/dL Cholesterol (50-200) mg/dL LDL Cholesterol (30-100) mg/dL HDL Cholesterol (40-60) mg/dL Heart Disease Risk Ratio 09/16/22 09/16/22 09/16/22 Range/Units 04:40 04:40 04:40 WBC 5.4 (4.0-10.5) x10^3/uL RBC 5.13 (4.1-5.6) x10^6/uL Hgb 14.4 (12.5-18.0) g/dL Hct 44.5 (42-50) % MCV 86.7 (78-100) fL MCH 28.1 (26-32) pg MCHC 32.4 (32-36) g/dL RDW 18.5 H (11.5-14.0) % Plt Count 184 (150-450) x10^3/uL MPV 11.5 H (7.5-11.0) fL Sodium 137 (137-145) mmol/L Potassium 3.8 (3.5-5.1) mmol/L Chloride 101 (98-107) mmol/L Carbon Dioxide 32 H (22-30) mmol/L Anion Gap 7.7 (5-15) MEQ/L BUN 38 H (9-20) mg/dL Creatinine 0.99 (0.66-1.25) mg/dL Estimated GFR > 60.0 ML/MIN Glucose 215 H (74-106) mg/dL POC Glucometer (74 to 106) mg/dL Calcium 8.5 (8.4-10.2) mg/dL Troponin I 0.282 H* (0.000-0.034) ng/mL NT-Pro-B Natriuret Pep 6020 H (0-900) pg/mL Triglycerides 85 (30-150) mg/dL Cholesterol 143 (50-200) mg/dL LDL Cholesterol 59 (30-100) mg/dL HDL Cholesterol 47 (40-60) mg/dL Heart Disease Risk Ratio 3.0 09/16/22 Range/Units 07:28 WBC (4.0-10.5) x10^3/uL RBC (4.1-5.6) x10^6/uL Hgb (12.5-18.0) g/dL Hct (42-50) % MCV (78-100) fL MCH (26-32) pg MCHC (32-36) g/dL RDW (11.5-14.0) % Plt Count (150-450) x10^3/uL MPV (7.5-11.0) fL Sodium (137-145) mmol/L Potassium (3.5-5.1) mmol/L Chloride (98-107) mmol/L Carbon Dioxide (22-30) mmol/L Anion Gap (5-15) MEQ/L BUN (9-20) mg/dL Creatinine (0.66-1.25) mg/dL Estimated GFR ML/MIN Glucose (74-106) mg/dL POC Glucometer 211 H (74 to 106) mg/dL Calcium (8.4-10.2) mg/dL Troponin I (0.000-0.034) ng/mL NT-Pro-B Natriuret Pep (0-900) pg/mL Triglycerides (30-150) mg/dL Cholesterol (50-200) mg/dL LDL Cholesterol (30-100) mg/dL HDL Cholesterol (40-60) mg/dL Heart Disease Risk Ratio Microbiology 09/14/22 22:00 Blood Culture - Preliminary Blood NO GROWTH TO DATE 09/14/22 21:50 Blood Culture - Preliminary Blood NO GROWTH TO DATE Accuchecks Date 09/15/22 Time 11:39 - Radiology Impressions Radiology Exams & Impressions: Radiology Procedures Category Date Time Status CHEST WITH CONTRAST [CT] Stat Exams 09/14/22 22:43 Completed - Other Procedures and Tests Respiratory Therapy 09/15/22 15:25 Oxygen NASAL CANNULA 2 lpm 09/15/22 15:50 Smoking Cessation Education ONCE 09/17/22 05:00 EKG ROUTINE 09/18/22 05:00 EKG ROUTINE Assessment/Plan (1) CHF (congestive heart failure) Current Visit: Yes Status: Acute Assessment & Plan: diurese with IV lasix, echo in chart from March 2022 shows mild dilation of aortic arch and low normal EF. cardiology consult pending Code(s): I50.9 - HEART FAILURE, UNSPECIFIED (2) Atrial fibrillation Current Visit: Yes Status: Acute Assessment & Plan: continue po cardizem and eliquis, rate is not well controlled currently. Code(s): I48.91 - UNSPECIFIED ATRIAL FIBRILLATION (3) Elevated troponin Current Visit: Yes Status: Acute Assessment & Plan: likely strain from CHF, cardiology consulted Code(s): R77.8 - OTHER SPECIFIED ABNORMALITIES OF PLASMA PROTEINS (4) Influenza A Current Visit: Yes Status: Acute Assessment & Plan: supportive care at this time Code(s): J10.1 - FLU DUE TO OTH IDENT INFLUENZA VIRUS W OTH RESP MANIFEST
[2022-09-16] MEDS: Klor Con PO SCH ×2 (09:19→17:04)
[2022-09-16] MEDS: ELIQUIS 2.5 MG TABLET PO SCH ×2 (09:20→21:07)
[2022-09-16] MEDS: Ecotrin 325 MG PO SCH (09:20)
[2022-09-16] MEDS: Cardizem CD PO SCH (09:20)
[2022-09-16] MEDS: MAG-OX 400 PO SCH ×3 (09:20→21:07)
[2022-09-16] MEDS: Furosemide 100mg/10 ml Vial IV SCH ×2 (09:20→16:53)
[2022-09-16] MEDS: Cymbalta 30 MG Capsule PO SCH (09:20)
[2022-09-16] MEDS: Lotensin PO SCH (09:33)
[2022-09-16] MEDS ORDERED: NON-FORMULARY ITEM (Benazepril Hcl [Benazepril Hcl] 40 MG Tablet) PO SCH (10:00)
[2022-09-16] MEDS ORDERED: FLUZONE QUAD 2022-2023 SYRINGE IM ONE (10:00)
[2022-09-16] MEDS ORDERED: NON-FORMULARY ITEM (Potassium Chloride [Potassium Chloride] 10 MEQ Tablet.Er) PO SCH (10:00)
[2022-09-16] MEDS ORDERED: DILTIAZEM HCL 240 MG PO SCH (10:00)
[2022-09-16] MEDS ORDERED: Lanoxin 0.125MG TABLET PO ONE (14:00)
[2022-09-16] MEDS ORDERED: Cardizem CD PO ONE (17:00)
[2022-09-16] MEDS: Zocor 10MG PO SCH (21:07)
[2022-09-16] MEDS: Flomax 0.4 MG PO SCH (21:08)
[2022-09-16] MEDS: ROCEPHIN 1 Gm-D5w 50 ml Bag** 1 G/50 ML IVPB IV SCH (21:11)
[2022-09-17] MEDS: solu-MEDROL 80 MG, Sterile H2O 10 ml 2 ML IV SCH ×8 (05:20→23:00)
[2022-09-17 05:28] LABS: Absolute Neutrophil Ct (ANC) 4.65 x10^3/uL (1.4-6.9); Basophil (Absolute #) 0.01 x10^3/uL (0-0.4); Eosinophil (Absolute #) 0 x10^3/uL (0-0.5); Hematocrit 45.8 % (42-50); Hemoglobin 14.1 g/dL (12.5-18.0); Lymphocyte (Absolute #) 0.65 x10^3/uL (1.0-4.6); Lymphocytes % 11.5 % (24.0-44.0); Mean Cell Volume 88.4 fL (78-100); Mean Corpuscular Hemoglobin 27.2 pg (26-32); Mean Corpuscular Hgb Concent. 30.8 g/dL (32-36); Mean Platelet Volume 11.6 fL (7.5-11.0); Monocyte (Absolute #) 0.32 x10^3/uL (0.0-1.3); Monocytes % 5.7 % (0.0-12.0); Neutrophil % 82.4 % (36.0-66.0); Platelet Count 167 x10^3/uL (150-450); Red Blood Count 5.18 x10^6/uL (4.1-5.6); Red Cell Distribution Width 17.9 % (11.5-14.0); White Blood Count 5.6 x10^3/uL (4.0-10.5)
[2022-09-17 06:19] LABS: ALBUMIN 3.2 g/dL (3.5-5.0); ALKALINE PHOSPHATASE 228 U/L (38-126); ANION GAP 6.9 MEQ/L (5-15); BLOOD UREA NITROGEN 35 mg/dL (9-20); CHLORIDE 99 mmol/L (98-107); Calcium 8.1 mg/dL (8.4-10.2); Carbon Dioxide 33 mmol/L (22-30); Creatinine 1 0.86 mg/dL (0.66-1.25); EST GLOMERULAR FILTRATION RATE > 60.0 ML/MIN; Glucose 318 mg/dL (74-106); MAGNESIUM 2.1 mg/dL (1.6-2.3); NT PRO BNP 6580 pg/mL (0-900); Potassium 3.6 mmol/L (3.5-5.1); SGOT/AST 48 U/L (17-59); SGPT/ALT 40 U/L (0-50); SODIUM 135 mmol/L (137-145); Total Protein 6.3 g/dL (6.3-8.2)
[2022-09-17] MEDS: HUMALOG SQ PRN ×4 (07:38→22:18)
--- NOTE | 2022-09-17 08:13 | PCM.NOTE ---
Date and Time: 09/17/22 08 Subjective Assessment: patient reports his breathing is doing better today, he has diuresed a massive amount since admission Objective Exam General Appearance: no apparent distress, obese Respiratory Exam: crackles/rales Cardiovascular Exam: regular rate/rhythm, normal heart sounds Gastrointestinal/Abdomen Exam: soft, No tenderness, No mass Extremity Exam: pedal edema, swelling OBJECTIVE DATA Vital Signs: Vital Signs - 24 hr Temp Pulse Resp BP Pulse Ox 09/17/22 08:00 99 H 09/17/22 07:39 97.8 F 99 H 22 158/112 97 09/17/22 05:20 95 09/17/22 03:04 97.4 F 85 20 132/101 97 09/16/22 23:34 102 H 09/16/22 23:15 104 H 18 139/91 97 09/16/22 20:38 97.5 F 111 H 24 152/110 09/16/22 20:00 97.5 F 111 H 22 152/110 09/16/22 19:05 97 09/16/22 17:02 98 09/16/22 16:31 160/108 09/16/22 16:00 98.2 F 111 H 20 155/110 99 09/16/22 14:07 130 H 09/16/22 12:00 102 H 09/16/22 10:57 97.5 F 102 H 19 148/107 100 Pain Assessment - Last Documented Pain Intensity 0 Pain Scale Used 0-10 Pain Scale Intake and Output: Intake & Output 09/14/22 09/15/22 09/16/22 09/17/22 11:59 11:59 11:59 11:59 Intake Total 1140 2160 Output Total 1600 2814 4283 Balance -5878 -8215 -6293 Weight 128 kg 126.5 kg Lab Results: Lab Results-Last 24 Hours 09/16/22 09/16/22 09/16/22 Range/Units 11:11 16:21 21:10 WBC (4.0-10.5) x10^3/uL RBC (4.1-5.6) x10^6/uL Hgb (12.5-18.0) g/dL Hct (42-50) % MCV (78-100) fL MCH (26-32) pg MCHC (32-36) g/dL RDW (11.5-14.0) % Plt Count (150-450) x10^3/uL MPV (7.5-11.0) fL Gran % (36.0-66.0) % Immature Gran % (Auto) (0.00-0.4) % Nucleat RBC Rel Count (0.00-0.1) % Eos # (Auto) (0-0.5) x10^3/uL Immature Gran # (Auto) (0.00-0.03) x10^3u/L Absolute Lymphs (auto) (1.0-4.6) x10^3/uL Absolute Monos (auto) (0.0-1.3) x10^3/uL Absolute Nucleated RBC (0.00-0.01) x10^3u/L Lymphocytes % (24.0-44.0) % Monocytes % (0.0-12.0) % Eosinophils % (0.00-5.0) % Basophils % (0.0-0.4) % Absolute Granulocytes (1.4-6.9) x10^3/uL Basophils # (0-0.4) x10^3/uL Sodium (137-145) mmol/L Potassium (3.5-5.1) mmol/L Chloride (98-107) mmol/L Carbon Dioxide (22-30) mmol/L Anion Gap (5-15) MEQ/L BUN (9-20) mg/dL Creatinine (0.66-1.25) mg/dL Estimated GFR ML/MIN Glucose (74-106) mg/dL POC Glucometer 224 H 354 H 392 H (74 to 106) mg/dL Calcium (8.4-10.2) mg/dL Magnesium (1.6-2.3) mg/dL Total Bilirubin (0.2-1.3) mg/dL AST (17-59) U/L ALT (0-50) U/L Alkaline Phosphatase (38-126) U/L NT-Pro-B Natriuret Pep (0-900) pg/mL Serum Total Protein (6.3-8.2) g/dL Albumin (3.5-5.0) g/dL 09/17/22 09/17/22 09/17/22 Range/Units 04:30 04:30 07:10 WBC 5.6 (4.0-10.5) x10^3/uL RBC 5.18 (4.1-5.6) x10^6/uL Hgb 14.1 (12.5-18.0) g/dL Hct 45.8 (42-50) % MCV 88.4 (78-100) fL MCH 27.2 (26-32) pg MCHC 30.8 L (32-36) g/dL RDW 17.9 H (11.5-14.0) % Plt Count 167 (150-450) x10^3/uL MPV 11.6 H (7.5-11.0) fL Gran % 82.4 H (36.0-66.0) % Immature Gran % (Auto) 0.2 (0.00-0.4) % Nucleat RBC Rel Count 0.0 (0.00-0.1) % Eos # (Auto) 0 (0-0.5) x10^3/uL Immature Gran # (Auto) 0.01 (0.00-0.03) x10^3u/L Absolute Lymphs (auto) 0.65 L (1.0-4.6) x10^3/uL Absolute Monos (auto) 0.32 (0.0-1.3) x10^3/uL Absolute Nucleated RBC 0.00 (0.00-0.01) x10^3u/L Lymphocytes % 11.5 L (24.0-44.0) % Monocytes % 5.7 (0.0-12.0) % Eosinophils % 0.0 (0.00-5.0) % Basophils % 0.2 (0.0-0.4) % Absolute Granulocytes 4.65 (1.4-6.9) x10^3/uL Basophils # 0.01 (0-0.4) x10^3/uL Sodium 135 L (137-145) mmol/L Potassium 3.6 (3.5-5.1) mmol/L Chloride 99 (98-107) mmol/L Carbon Dioxide 33 H (22-30) mmol/L Anion Gap 6.9 (5-15) MEQ/L BUN 35 H (9-20) mg/dL Creatinine 0.86 (0.66-1.25) mg/dL Estimated GFR > 60.0 ML/MIN Glucose 318 H (74-106) mg/dL POC Glucometer 295 H (74 to 106) mg/dL Calcium 8.1 L (8.4-10.2) mg/dL Magnesium 2.1 (1.6-2.3) mg/dL Total Bilirubin 0.90 (0.2-1.3) mg/dL AST 48 (17-59) U/L ALT 40 (0-50) U/L Alkaline Phosphatase 228 H (38-126) U/L NT-Pro-B Natriuret Pep 6580 H (0-900) pg/mL Serum Total Protein 6.3 (6.3-8.2) g/dL Albumin 3.2 L (3.5-5.0) g/dL Radiology Exams: Radiology Procedures Category Date Time Status CHEST 1 VIEW (PORTABLE) Routine Exams 09/17/22 08:10 Ordered Multi-Disciplinary Progress Notes: Multi-Disciplinary Progress Notes 09/16/22 10:00 (created 09/16/22 10:26) Case Management Note by Susan Cuveas SPOKE WITH PT'S DAUGHTER, BHANU, REGARDING PT'S NEEDS AT TIME OF DISCHARGE. DAUGHTER REPORTS THAT PRIOR TO PT BEING HERE IN THE HOSPITAL THE FIRST TIME WITH RSV THAT HE WAS INDEPENDENT WITH ALL ADL'S. DOES NOT USE ANY DME OR OXYGEN EQUIPMENT. DAUGHTER ALSO REPORTS THAT PT HAS BEEN STAYING WITH HER SINCE HIS DISCHARGE ON . REPORTS THAT SHE DOES NOT THINK THAT HER DAD WILL BE WILLING TO GO FOR REHAB STAY @ [facility], [facility], BUT ALSO REPORTS THAT HE HAS BEEN TOO WEAK TO DRESS HIMSELF. DISCUSSED C SERVICES BUT WITH PT'S INSURANCE HE WOULD NEED A SPECIFIC SKILL IN ORDER TO QUALIFY. DAUGHTER VERBALIZED UNDERSTANDING OF ALL INFORMATION. REPORTS THAT HER PLAN WILL BE FOR HER DAD TO RETURN TO HER HOME, BUT SHE WILL DISCUSS REHAB STAY WITH HIM, IF HE IS STILL UNABLE TO CARE FOR HIMSELF, CLOSER TO TIME OF DC. Initialized on 09/16/22 10:26 - END OF NOTE Assessment/Plan (1) CHF (congestive heart failure) Current Visit: Yes Status: Acute Assessment & Plan: patient has had >8L urine output from [facility] since admission, repeat chest xray but still appears to have some crackles on exam. will continue IV lasix Code(s): I50.9 - HEART FAILURE, UNSPECIFIED (2) Atrial fibrillation Current Visit: Yes Status: Acute Assessment & Plan: rate better controlled, continue eliquis Code(s): I48.91 - UNSPECIFIED ATRIAL FIBRILLATION (3) Elevated troponin Current Visit: Yes Status: Acute Code(s): R77.8 - OTHER SPECIFIED ABNORMALITIES OF PLASMA PROTEINS (4) Influenza A Current Visit: Yes Status: Acute Code(s): J10.1 - FLU DUE TO OTH IDENT INFLUENZA VIRUS W OTH RESP MANIFEST
[2022-09-17] MEDS: Cardizem CD PO SCH (09:01)
[2022-09-17] MEDS: Klor Con PO SCH ×2 (09:01→17:01)
[2022-09-17] MEDS: Lotensin PO SCH (09:01)
[2022-09-17] MEDS: Ecotrin 325 MG PO SCH (09:01)
[2022-09-17] MEDS: Cymbalta 30 MG Capsule PO SCH (09:01)
[2022-09-17] MEDS: Lanoxin 0.125MG TABLET PO SCH (09:01)
[2022-09-17] MEDS: MAG-OX 400 PO SCH ×3 (09:02→22:18)
[2022-09-17] MEDS: ELIQUIS 2.5 MG TABLET PO SCH ×2 (09:02→22:18)
[2022-09-17] MEDS: Furosemide 100mg/10 ml Vial IV SCH ×2 (09:02→17:00)
--- NOTE | 2022-09-17 09:35 | XRAY ---
Indication: CHF. Comparison: August 30, 2022 Portable chest again demonstrates cardiomegaly. New right lung base consolidating infiltrate/atelectasis/effusion. Left lung clear.
[2022-09-17] MEDS ORDERED: solu-MEDROL ONE (16:48)
[2022-09-17] MEDS: Zocor 10MG PO SCH (22:18)
[2022-09-17] MEDS: ROCEPHIN 1 Gm-D5w 50 ml Bag** 1 G/50 ML IVPB IV SCH (22:18)
[2022-09-17] MEDS: Flomax 0.4 MG PO SCH (22:18)
[2022-09-18] MEDS: solu-MEDROL 80 MG, Sterile H2O 10 ml 2 ML IV SCH ×8 (05:34→23:30)
[2022-09-18 06:39] LABS: Absolute Neutrophil Ct (ANC) 4.68 x10^3/uL (1.4-6.9); Basophil (Absolute #) 0 x10^3/uL (0-0.4); Eosinophil (Absolute #) 0 x10^3/uL (0-0.5); Hematocrit 48.6 % (42-50); Hemoglobin 15.1 g/dL (12.5-18.0); Lymphocyte (Absolute #) 0.69 x10^3/uL (1.0-4.6); Lymphocytes % 12.3 % (24.0-44.0); Mean Cell Volume 88.4 fL (78-100); Mean Corpuscular Hemoglobin 27.5 pg (26-32); Mean Corpuscular Hgb Concent. 31.1 g/dL (32-36); Mean Platelet Volume 11.9 fL (7.5-11.0); Monocyte (Absolute #) 0.21 x10^3/uL (0.0-1.3); Monocytes % 3.8 % (0.0-12.0); Neutrophil % 83.5 % (36.0-66.0); Platelet Count 166 x10^3/uL (150-450); Red Cell Distribution Width 17.6 % (11.5-14.0); White Blood Count 5.6 x10^3/uL (4.0-10.5)
[2022-09-18 07:20] LABS: ANION GAP 6.6 MEQ/L (5-15); BLOOD UREA NITROGEN 32 mg/dL (9-20); CHLORIDE 95 mmol/L (98-107); Calcium 8.2 mg/dL (8.4-10.2); Carbon Dioxide 35 mmol/L (22-30); Creatinine 1 0.76 mg/dL (0.66-1.25); EST GLOMERULAR FILTRATION RATE > 60.0 ML/MIN; Glucose 344 mg/dL (74-106); NT PRO BNP 5720 pg/mL (0-900); Potassium 3.2 mmol/L (3.5-5.1); SODIUM 134 mmol/L (137-145)
[2022-09-18] MEDS: HUMALOG SQ PRN ×4 (08:59→20:55)
--- NOTE | 2022-09-18 09:49 | PCM.NOTE ---
Date and Time: 09/18/22 0949 Subjective Assessment: doing ok - Review of Systems Constitutional: No Fever, No Chills Eyes: No Symptoms Ears, Nose, & Throat: No Symptoms Respiratory: No Cough, No Short Of Breath Cardiac: No Chest Pain, No Edema, No Syncope Abdominal/Gastrointestinal: No Abdominal Pain, No Nausea, No Vomiting, No Diarrhea Genitourinary Symptoms: No Dysuria Musculoskeletal: No Back Pain, No Neck Pain Skin: No Rash Neurological: No Dizziness, No Focal Weakness, No Sensory Changes Psychological: No Symptoms Endocrine: No Symptoms Hematologic/Lymphatic: No Symptoms Immunological/Allergic: No Symptoms Objective Exam General Appearance: no apparent distress, alert Neurologic Exam: alert, oriented x 3, cooperative, normal mood/affect, nml cerebellar function, sensation nml, No motor deficits Skin Exam: normal color, warm, dry Eye Exam: PERRL, EOMI, eyes nml inspection Ears, Nose, Throat Exam: normal ENT inspection, pharynx normal, moist mucous membranes Neck Exam: normal inspection, non-tender, supple, full range of motion Respiratory Exam: normal breath sounds, lungs clear, No respiratory distress Cardiovascular Exam: regular rate/rhythm, normal heart sounds Gastrointestinal/Abdomen Exam: soft, No tenderness, No mass Extremity Exam: normal inspection, normal range of motion Back Exam: normal inspection, normal range of motion, No CVA tenderness, No vertebral tenderness Male Genitalia Exam: deferred Rectal Exam: deferred OBJECTIVE DATA Vital Signs: Vital Signs - 24 hr Temp Pulse Resp BP BP Pulse Ox 09/18/22 07:53 95 09/18/22 07:33 96.7 F 87 20 145/92 94 L 09/18/22 04:00 96.8 F 75 21 147/92 98 09/18/22 00:00 97.5 F 79 23 138/90 99 09/17/22 20:00 97.7 F 92 H 19 142/83 97 09/17/22 19:43 98 09/17/22 15:40 97.1 F 91 H 20 177/101 95 09/17/22 11:18 97.6 F 108 H 20 154/87 96 Pain Assessment - Last Documented Pain Intensity 0 Pain Scale Used 0-10 Pain Scale Intake and Output: Intake & Output 09/15/22 09/16/22 09/17/22 09/18/22 11:59 11:59 11:59 11:59 Intake Total 5695 9629 204 Output Total 8799 8810 0288 9293 Balance -3918 -7866 -4075 -5417 Weight 128 kg 126.5 kg Lab Results: Lab Results-Last 24 Hours 09/17/22 09/17/22 09/17/22 Range/Units 11:09 17:16 20:41 WBC (4.0-10.5) x10^3/uL RBC (4.1-5.6) x10^6/uL Hgb (12.5-18.0) g/dL Hct (42-50) % MCV (78-100) fL MCH (26-32) pg MCHC (32-36) g/dL RDW (11.5-14.0) % Plt Count (150-450) x10^3/uL MPV (7.5-11.0) fL Gran % (36.0-66.0) % Immature Gran % (Auto) (0.00-0.4) % Nucleat RBC Rel Count (0.00-0.1) % Eos # (Auto) (0-0.5) x10^3/uL Immature Gran # (Auto) (0.00-0.03) x10^3u/L Absolute Lymphs (auto) (1.0-4.6) x10^3/uL Absolute Monos (auto) (0.0-1.3) x10^3/uL Absolute Nucleated RBC (0.00-0.01) x10^3u/L Lymphocytes % (24.0-44.0) % Monocytes % (0.0-12.0) % Eosinophils % (0.00-5.0) % Basophils % (0.0-0.4) % Absolute Granulocytes (1.4-6.9) x10^3/uL Basophils # (0-0.4) x10^3/uL Sodium (137-145) mmol/L Potassium (3.5-5.1) mmol/L Chloride (98-107) mmol/L Carbon Dioxide (22-30) mmol/L Anion Gap (5-15) MEQ/L BUN (9-20) mg/dL Creatinine (0.66-1.25) mg/dL Estimated GFR ML/MIN Glucose (74-106) mg/dL POC Glucometer 352 H 341 H 315 H (74 to 106) mg/dL Calcium (8.4-10.2) mg/dL NT-Pro-B Natriuret Pep (0-900) pg/mL 09/18/22 09/18/22 09/18/22 Range/Units 06:00 06:00 07:11 WBC 5.6 (4.0-10.5) x10^3/uL RBC 5.50 (4.1-5.6) x10^6/uL Hgb 15.1 (12.5-18.0) g/dL Hct 48.6 (42-50) % MCV 88.4 (78-100) fL MCH 27.5 (26-32) pg MCHC 31.1 L (32-36) g/dL RDW 17.6 H (11.5-14.0) % Plt Count 166 (150-450) x10^3/uL MPV 11.9 H (7.5-11.0) fL Gran % 83.5 H (36.0-66.0) % Immature Gran % (Auto) 0.4 (0.00-0.4) % Nucleat RBC Rel Count 0.0 (0.00-0.1) % Eos # (Auto) 0 (0-0.5) x10^3/uL Immature Gran # (Auto) 0.02 (0.00-0.03) x10^3u/L Absolute Lymphs (auto) 0.69 L (1.0-4.6) x10^3/uL Absolute Monos (auto) 0.21 (0.0-1.3) x10^3/uL Absolute Nucleated RBC 0.00 (0.00-0.01) x10^3u/L Lymphocytes % 12.3 L (24.0-44.0) % Monocytes % 3.8 (0.0-12.0) % Eosinophils % 0.0 (0.00-5.0) % Basophils % 0.0 (0.0-0.4) % Absolute Granulocytes 4.68 (1.4-6.9) x10^3/uL Basophils # 0 (0-0.4) x10^3/uL Sodium 134 L (137-145) mmol/L Potassium 3.2 L (3.5-5.1) mmol/L Chloride 95 L (98-107) mmol/L Carbon Dioxide 35 H (22-30) mmol/L Anion Gap 6.6 (5-15) MEQ/L BUN 32 H (9-20) mg/dL Creatinine 0.76 (0.66-1.25) mg/dL Estimated GFR > 60.0 ML/MIN Glucose 344 H (74-106) mg/dL POC Glucometer 345 H (74 to 106) mg/dL Calcium 8.2 L (8.4-10.2) mg/dL NT-Pro-B Natriuret Pep 5720 H (0-900) pg/mL Radiology Exams: Radiology Procedures Category Date Time Status CHEST 1 VIEW (PORTABLE) Routine Exams 09/17/22 08:10 Completed Multi-Disciplinary Progress Notes: Multi-Disciplinary Progress Notes 09/17/22 19:41 Case Management Note by Asya Corea PHYSICAL THERAPY RECOMMENDING A ROLLATOR WELL OTPT PT. ORDER FOR ROLLATOR SENT TO [facility] [place]. THEY WILL NEED CALLED IN THE AM AT [phone] AND NOTIFIED OF THE ORDER AND NEED FOR IT TO BE DELIVERED TO [facility] 09/18/22 PRIOR TO PATIENT DCING HOME PHYSICAL THERAPY THOUGH THIS WOULD BE BEST Initialized on 09/17/22 19:41 - END OF NOTE 09/17/22 11:20 Case Management Note by Asya Corea S/W PATIENT- HE CONTINUES TO DECLINE REHAB AND HHC AT THIS TIME. HE PLANS TO RETURN HOME WITH HIS DAUGHTER AT TIME OF DC. CALLED AND LM WITH DAUGHTER WELL. PATIENT CURRENTLY ON ROOM AIR Initialized on 09/17/22 11:20 - END OF NOTE Assessment/Plan (1) Influenza A Current Visit: Yes Status: Acute Assessment & Plan: Chief Complaint Diagnosis CHF, PNEUMONIA, FLU, SOB, PLEURAL EFFUSION Allergies Allergy/AdvReac Type Severity Reaction Status Date / Time No Known Drug Allergies Allergy Verified 09/15/22 15:39 Vital Signs (Last 24 hours) Temp Pulse Resp BP BP Pulse Ox 09/18/22 07:53 95 09/18/22 07:33 96.7 F 87 20 145/92 94 L 09/18/22 04:00 96.8 F 75 21 147/92 98 09/18/22 00:00 97.5 F 79 23 138/90 99 09/17/22 20:00 97.7 F 92 H 19 142/83 97 09/17/22 19:43 98 09/17/22 15:40 97.1 F 91 H 20 177/101 95 09/17/22 11:18 97.6 F 108 H 20 154/87 96 Home Medications Medication Instructions Recorded Confirmed Last Taken Type Diltiazem HCl [Cartia Xt] 120 mg PO DAILY 09/15/22 09/15/22 Unknown History Current Medications Generic Name Dose Route Start Last Admin Trade Name Freq PRN Reason Stop Dose Admin Acetaminophen 650 mg 09/15/22 15:25 09/16/22 21:07 Acetaminophen 325 Mg Tablet PO 10/15/22 15:24 650 mg Q4H PRN PRN Administration PAIN AND/OR FEVER Al Hydrox/Mg Hydrox/Simethicone 30 ml 09/15/22 15:25 Mag Hydrox/Al Hydrox/Simeth 30 Ml Udcup PO 10/15/22 15:24 Q4H PRN PRN INDIGESTION Apixaban 5 mg 09/15/22 22:00 09/17/22 22:18 Apixaban 2.5 Mg Tablet PO 10/15/22 21:59 5 mg BID KALLIE Administration Aspirin 325 mg 09/15/22 15:25 09/17/22 09:01 Aspirin 325 Mg Tablet.Ec PO 10/15/22 15:24 325 mg DAILY KALLIE Administration Benazepril HCl 40 mg 09/15/22 17:00 09/17/22 09:01 Benazepril Hcl 10 Mg Tablet PO 10/15/22 16:59 40 mg DAILY KALLIE Administration Methylprednisolone Sodium 0 mg 09/15/22 18:00 09/18/22 05:34 Succinate 80 mg/ Sterile Water IV 10/15/22 17:59 80 mg 2 ml Q6HT KALLIE Administration Digoxin 0.25 mg 09/17/22 10:00 09/17/22 09:01 Digoxin 0.125 Mg Tablet PO 10/17/22 09:59 0.25 mg DAILY KALLIE Administration Diltiazem HCl 240 mg 09/17/22 10:00 09/17/22 09:01 Diltiazem Hcl Cd 120 Mg Cap.Sr.24h PO 10/17/22 09:59 240 mg DAILY KALLIE Administration Duloxetine HCl 60 mg 09/15/22 17:00 09/17/22 09:01 Duloxetine Hcl 30 Mg Cap PO 10/15/22 16:59 60 mg DAILY KALLIE Administration Furosemide 60 mg 09/15/22 17:00 09/17/22 17:00 Furosemide 100 Mg/10 Ml Vial IV 10/15/22 16:59 60 mg BID DIURETIC KALLIE Administration Ceftriaxone Sodium/Dextrose 1 g in 50 mls @ 100 mls/hr 09/15/22 22:00 09/17/22 22:18 Rocephin 1 Gm-D5w 50 Ml Bag IV 09/18/22 21:59 100 mls/hr HS KALLIE Administration Insulin Human Lispro 0 unit 09/15/22 16:30 09/18/22 08:59 Insulin Lispro 1 Unit SQ 10/15/22 16:29 9 unit UD PRN Administration HYPERGLYCEMIA Magnesium Hydroxide 30 - 60 ml 09/15/22 15:25 Magnesium Hydroxide 30 Ml Udcup PO 10/15/22 15:24 QDP PRN CONSTIPATION Magnesium Oxide 400 mg 09/15/22 22:00 09/17/22 22:18 Magnesium Oxide 400 Mg Tablet PO 10/15/22 21:59 400 mg TID KALLIE Administration Morphine Sulfate 2 mg 09/15/22 15:25 Morphine Sulfate 2 Mg/Ml Inj IV 09/20/22 15:24 Q4H PRN PRN PAIN Ondansetron HCl 4 mg 09/15/22 15:25 Ondansetron Hcl 4 Mg/2 Ml Vial IV 10/15/22 15:24 Q4H PRN PRN NAUSEA/VOMITING Potassium Chloride 20 meq 09/15/22 18:00 09/17/22 17:01 Potassium Chloride Tab 10 Meq Tab PO 10/15/22 17:59 20 meq EVENING MEAL KALLIE Administration Potassium Chloride 40 meq 09/16/22 10:00 09/17/22 09:01 Potassium Chloride Tab 10 Meq Tab PO 10/16/22 09:59 40 meq DAILY KALLIE Administration Senna/Docusate Sodium 2 udtab 09/15/22 15:25 Senna/Docusate Sodium 1 Udtab Tablet PO 10/15/22 15:24 BID PRN PRN CONSTIPATION Simvastatin 10 mg 09/15/22 22:00 09/17/22 22:18 Simvastatin 10 Mg Tablet PO 10/15/22 21:59 10 mg HS KALLIE Administration Tamsulosin HCl 0.4 mg 09/15/22 22:00 09/17/22 22:18 Tamsulosin Hcl 0.4 Mg Cap PO 10/15/22 21:59 0.4 mg HS KALLIE Administration Discontinued Medications Generic Name Dose Route Start Last Admin Trade Name Bassem PRN Reason Stop Dose Admin Albuterol Sulfate 2.5 mg 09/14/22 21:42 09/14/22 21:50 Albuterol Sulfate 2.5 Mg/3 Ml Neb IH 09/14/22 21:43 2.5 mg STAT ONE Administration Albuterol Sulfate Confirm 09/14/22 21:45 Albuterol Sulfate 2.5 Mg/3 Ml Neb Administered 09/14/22 21:46 Dose 2.5 mg IH .STK-MED ONE Amlodipine Besylate 5 mg 09/15/22 12:01 09/15/22 12:23 Amlodipine Besylate 5 Mg Tablet PO 09/15/22 12:02 5 mg STAT ONE Administration Amlodipine Besylate Confirm 09/15/22 12:22 Amlodipine Besylate 5 Mg Tablet Administered 09/15/22 12:23 Dose 5 mg .ROUTE .STK-MED ONE Clonidine 0.1 mg 09/15/22 12:01 09/15/22 12:23 Clonidine Hcl 0.1 Mg Tablet PO 09/15/22 12:02 0.1 mg STAT ONE Administration Clonidine Confirm 09/15/22 12:22 Clonidine Hcl 0.1 Mg Tablet Administered 09/15/22 12:23 Dose 0.1 mg .ROUTE .STK-MED ONE Methylprednisolone Sodium 0 mg 09/14/22 21:42 09/14/22 22:01 Succinate 125 mg/ Sterile IV 09/14/22 21:43 125 mg Water 2 ml STAT ONE Administration Digoxin 0.25 mg 09/16/22 14:00 09/16/22 14:07 Digoxin 0.125 Mg Tablet PO 09/16/22 14:01 0.25 mg NOW ONE Administration Diltiazem HCl 120 mg 09/15/22 17:00 09/16/22 09:20 Diltiazem Hcl Cd 120 Mg Cap.Sr.24h PO 10/15/22 16:59 120 mg DAILY KALLIE Administration Diltiazem HCl 120 mg 09/16/22 17:00 09/16/22 16:53 Diltiazem Hcl Cd 120 Mg Cap.Sr.24h PO 09/16/22 17:01 120 mg ONCE ONE Administration Furosemide 60 mg 09/14/22 22:49 09/14/22 23:06 Furosemide 40 Mg/4 Ml Vial IV 09/14/22 22:50 60 mg STAT ONE Administration Furosemide Confirm 09/14/22 23:04 Furosemide 40 Mg/4 Ml Vial Administered 09/14/22 23:05 Dose 40 mg .ROUTE .STK-MED ONE Furosemide Confirm 09/14/22 23:07 Furosemide 20 Mg/Vial Administered 09/14/22 23:08 Dose 20 mg .ROUTE .STK-MED ONE Furosemide Confirm 09/14/22 23:10 Furosemide 40 Mg/4 Ml Vial Administered 09/14/22 23:11 Dose 40 mg .ROUTE .STK-MED ONE Hydralazine HCl 10 mg 09/15/22 13:48 09/15/22 13:54 Hydralazine Hcl 20 Mg/Ml Vial IV 09/15/22 13:49 10 mg STAT ONE Administration Hydralazine HCl Confirm 09/15/22 13:53 Hydralazine Hcl 20 Mg/Ml Vial Administered 09/15/22 13:54 Dose 20 mg .ROUTE .STK-MED ONE Nitroglycerin/Dextrose 250 mls @ 1.5 mls/hr 09/14/22 23:18 09/15/22 07:39 Ntg 0.2mg/Ml In D5w Glass IV 10/14/22 23:17 10 mcg/min .Q24H PRN 3 mls/hr CHEST PAIN Titration Protocol 5 MCG/MIN Ceftriaxone Sodium/Dextrose 2 g in 50 mls @ 100 mls/hr 09/15/22 00:25 09/15/22 07:19 Rocephin 2 Gm-D5w 50ml Bag IV 09/15/22 00:54 Infused STAT STA Infusion Azithromycin 500 mg in 250 mls @ 250 mls/hr 09/15/22 00:26 09/15/22 07:19 Zithromax 500 Mg/ 250 Ml Nacl Premix IV 09/15/22 01:25 Infused STAT STA Infusion Ceftriaxone Sodium/Dextrose Confirm 09/15/22 00:38 Rocephin 2 Gm-D5w 50ml Bag Administered 09/15/22 00:39 Dose 2 g in 50 mls @ ud IV .STK-MED ONE Azithromycin Confirm 09/15/22 01:09 Zithromax 500 Mg/ 250 Ml Nacl Premix Administered 09/15/22 01:10 Dose 500 mg in 250 mls @ ud IV .STK-MED ONE Azithromycin 500 mg in 250 mls @ 250 mls/hr 09/15/22 22:00 09/15/22 21:55 Zithromax 500 Mg/ 250 Ml Nacl Premix IV 10/15/22 21:59 250 mls/hr HS KALLIE Administration Methylprednisolone Sodium Succinate Confirm 09/14/22 22:01 Methylprednis Sod Succ 125 Mg/2 Ml Vial Administered 09/14/22 22:02 Dose 125 mg .ROUTE .STK-MED ONE Methylprednisolone Sodium Succinate Confirm 09/17/22 16:48 Methylprednis Sod Succ 125 Mg/2 Ml Vial Administered 09/17/22 16:49 Dose 125 mg .ROUTE .STK-MED ONE Non-Formulary Medication 1 each 09/14/22 23:20 Hold Metformin Products For 48hrs 09/16/22 23:20 [facility] [place]seltam[place] Phosphate 75 mg 09/14/22 23:24 09/14/22 23:43 Oseltamivir 75 Mg Cap PO 09/14/22 23:25 75 mg ONCE STA Administration Oseltamivir Phosphate Confirm 09/14/22 23:42 Oseltamivir 75 Mg Cap Administered 09/14/22 23:43 Dose 75 mg PO .STK-MED ONE Sterile Water Confirm 09/14/22 22:01 Water For Injection,Sterile 10 Ml Vial Administered 09/14/22 22:02 Dose 10 ml IJ .STK-MED ONE Intake & Output (Last 24 hours) 09/15/22 09/16/22 09/17/22 09/18/22 11:59 11:59 11:59 11:59 Intake Total 1140 2520 2040 Output Total 0392 5892 7234 5849 Balance -6799 -4960 -4730 -7290 Weight 128 kg 126.5 kg Laboratory Results (Last 24 hours) 09/18/22 09/18/22 09/18/22 07:11 06:00 06:00 WBC 5.6 RBC 5.50 Hgb 15.1 Hct 48.6 MCV 88.4 MCH 27.5 MCHC 31.1 L RDW 17.6 H Plt Count 166 MPV 11.9 H Gran % 83.5 H Immature Gran % (Auto) 0.4 Nucleat RBC Rel Count 0.0 Eos # (Auto) 0 Immature Gran # (Auto) 0.02 Absolute Lymphs (auto) 0.69 L Absolute Monos (auto) 0.21 Absolute Nucleated RBC 0.00 Lymphocytes % 12.3 L Monocytes % 3.8 Eosinophils % 0.0 Basophils % 0.0 Absolute Granulocytes 4.68 Basophils # 0 Sodium 134 L Potassium 3.2 L Chloride 95 L Carbon Dioxide 35 H Anion Gap 6.6 BUN 32 H Creatinine 0.76 Estimated GFR > 60.0 Glucose 344 H POC Glucometer 345 H Calcium 8.2 L NT-Pro-B Natriuret Pep 5720 H 09/17/22 09/17/22 09/17/22 20:41 17:16 11:09 WBC RBC Hgb Hct MCV MCH MCHC RDW Plt Count MPV Gran % Immature Gran % (Auto) Nucleat RBC Rel Count Eos # (Auto) Immature Gran # (Auto) Absolute Lymphs (auto) Absolute Monos (auto) Absolute Nucleated RBC Lymphocytes % Monocytes % Eosinophils % Basophils % Absolute Granulocytes Basophils # Sodium Potassium Chloride Carbon Dioxide Anion Gap BUN Creatinine Estimated GFR Glucose POC Glucometer 315 H 341 H 352 H Calcium NT-Pro-B Natriuret Pep Orders (Last 24 hours) Category Date Time Status BMP AM.LAB Lab 09/18/22 06:00 Completed CBC W DIFF AM.LAB Lab 09/18/22 06:00 Completed NT PRO BNP AM.LAB Lab 09/18/22 06:00 Completed POCT GLUCOSE Stat Lab 09/17/22 11:09 Completed POCT GLUCOSE Stat Lab 09/17/22 17:16 Completed POCT GLUCOSE Stat Lab 09/17/22 20:41 Completed POCT GLUCOSE Stat Lab 09/18/22 07:11 Completed Digoxin 0.125 mg Tablet [Lanoxin 0.125MG TABLET] Med 09/17/22 10:00 Active 0.25 mg PO DAILY Diltiazem HCl Cd [Cardizem CD ] Med 09/17/22 10:00 Active 240 mg PO DAILY Methylprednis Sod Succ 125 mg* [solu-MEDROL] Med 09/17/22 16:48 Discontinued 125 mg .ROUTE .STK-MED ONE PT Eval & Treat ( Order) ONCE PT 09/17/22 15:16 Active EKG ROUTINE RT 09/18/22 05:00 Completed Patient Care Notes (Last 24 hours) 09/17/22 19:41 Case Management Note by Asya Corea PHYSICAL THERAPY RECOMMENDING A ROLLATOR WELL OTPT PT. ORDER FOR ROLLATOR SENT TO [facility] [place]. THEY WILL NEED CALLED IN THE AM AT [phone] AND NOTIFIED OF THE ORDER AND NEED FOR IT TO BE DELIVERED TO [facility] 09/18/22 PRIOR TO PATIENT DCING HOME PHYSICAL THERAPY THOUGH THIS WOULD BE BEST Initialized on 09/17/22 19:41 - END OF NOTE 09/17/22 11:20 Case Management Note by Asya Corea S/W PATIENT- HE CONTINUES TO DECLINE REHAB AND HHC AT THIS TIME. HE PLANS TO RETURN HOME WITH HIS DAUGHTER AT TIME OF DC. CALLED AND LM WITH DAUGHTER WELL. PATIENT CURRENTLY ON ROOM AIR Initialized on 09/17/22 11:20 - END OF NOTE Code(s): J10.1 - FLU DUE TO OTH IDENT INFLUENZA VIRUS W OTH RESP MANIFEST (2) Atrial fibrillation Current Visit: Yes Status: Acute Qualifiers: Atrial fibrillation type: paroxysmal Qualified Code(s): I48.0 - Paroxysmal atrial fibrillation Code(s): I48.91 - UNSPECIFIED ATRIAL FIBRILLATION (3) CHF (congestive heart failure) Current Visit: Yes Status: Acute Qualifiers: Heart failure type: combined systolic and diastolic Heart failure chronicity: acute on chronic Qualified Code(s): I50.43 - Acute on chronic combined systolic (congestive) and diastolic (congestive) heart failure Code(s): I50.9 - HEART FAILURE, UNSPECIFIED
[2022-09-18] MEDS: Lotensin PO SCH (10:01)
[2022-09-18] MEDS: ELIQUIS 2.5 MG TABLET PO SCH ×2 (10:02→20:55)
[2022-09-18] MEDS: Cardizem CD PO SCH (10:02)
[2022-09-18] MEDS: Lanoxin 0.125MG TABLET PO SCH (10:02)
[2022-09-18] MEDS: MAG-OX 400 PO SCH ×3 (10:02→20:56)
[2022-09-18] MEDS: Furosemide 100mg/10 ml Vial IV SCH ×2 (10:02→18:00)
[2022-09-18] MEDS: Ecotrin 325 MG PO SCH (10:02)
[2022-09-18] MEDS: Cymbalta 30 MG Capsule PO SCH (10:02)
[2022-09-18] MEDS: Klor Con PO SCH ×2 (10:02→18:00)
[2022-09-18] MEDS ORDERED: Toprol-Xl 25MG Tablets PO ONE (13:52)
[2022-09-18] MEDS: Zocor 10MG PO SCH (20:56)
[2022-09-18] MEDS: Flomax 0.4 MG PO SCH (20:56)
[2022-09-18] MEDS: ROCEPHIN 1 Gm-D5w 50 ml Bag** 1 G/50 ML IVPB IV SCH (20:57)
[2022-09-19] MEDS: solu-MEDROL 80 MG, Sterile H2O 10 ml 2 ML IV SCH ×8 (05:14→23:32)
[2022-09-19 06:17] LABS: Hemoglobin 15.3 g/dL (12.5-18.0); Mean Corpuscular Hemoglobin 27.4 pg (26-32); Mean Corpuscular Hgb Concent. 31.9 g/dL (32-36); Mean Platelet Volume 11.5 fL (7.5-11.0); Platelet Count 157 x10^3/uL (150-450); Red Blood Count 5.58 x10^6/uL (4.1-5.6); Red Cell Distribution Width 16.6 % (11.5-14.0); White Blood Count 6.3 x10^3/uL (4.0-10.5)
[2022-09-19 06:55] LABS: ALBUMIN 3.5 g/dL (3.5-5.0); ALKALINE PHOSPHATASE 215 U/L (38-126); BLOOD UREA NITROGEN 31 mg/dL (9-20); CHLORIDE 92 mmol/L (98-107); Calcium 8.2 mg/dL (8.4-10.2); EST GLOMERULAR FILTRATION RATE > 60.0 ML/MIN; Glucose 293 mg/dL (74-106); Potassium 3.1 mmol/L (3.5-5.1); SGOT/AST 82 U/L (17-59); SGPT/ALT 75 U/L (0-50); SODIUM 135 mmol/L (137-145); Total Protein 6.7 g/dL (6.3-8.2)
[2022-09-19 07:01] LABS: Carbon Dioxide 39 mmol/L (22-30)
[2022-09-19 07:10] LABS: ANION GAP 7.1 MEQ/L (5-15)
[2022-09-19] MEDS: HUMALOG SQ PRN ×4 (09:35→21:36)
[2022-09-19] MEDS: Lotensin PO SCH (09:36)
[2022-09-19] MEDS: Cymbalta 30 MG Capsule PO SCH (09:36)
[2022-09-19] MEDS: Lanoxin 0.125MG TABLET PO SCH (09:36)
[2022-09-19] MEDS: Ecotrin 325 MG PO SCH (09:36)
[2022-09-19] MEDS: Klor Con PO SCH ×2 (09:36→17:29)
[2022-09-19] MEDS: Cardizem CD PO SCH (09:36)
[2022-09-19] MEDS: Furosemide 100mg/10 ml Vial IV SCH ×2 (09:37→16:44)
[2022-09-19] MEDS: ELIQUIS 2.5 MG TABLET PO SCH ×2 (09:37→21:35)
[2022-09-19] MEDS: MAG-OX 400 PO SCH ×3 (09:38→21:35)
--- NOTE | 2022-09-19 10:03 | XRAY ---
Indication: Follow-up pneumonia. Comparison: September 17, 2022 PA/lateral chest limited but respiration artifact on lateral view. Minimally worsening right base consolidating infiltrate/atelectasis/effusion. Left lung remains clear. Heart remains enlarged. No new cardiopulmonary abnormalities.
--- NOTE | 2022-09-19 10:35 | PCM.NOTE ---
Date and Time: 09/19/22 1032 Subjective Assessment: still 4+ swelling on both lower extrimities. Blood in catheter - Review of Systems Constitutional: Weakness, No Fever, No Chills Eyes: No Symptoms Ears, Nose, & Throat: No Symptoms Respiratory: Orthopnea, Short Of Breath, No Cough Cardiac: Edema, No Chest Pain, No Syncope Abdominal/Gastrointestinal: No Abdominal Pain, No Nausea, No Vomiting, No Diarrhea Genitourinary Symptoms: Hematuria, No Dysuria Musculoskeletal: No Back Pain, No Neck Pain Skin: No Rash Neurological: No Dizziness, No Focal Weakness, No Sensory Changes Psychological: No Symptoms Endocrine: No Symptoms Hematologic/Lymphatic: No Symptoms Immunological/Allergic: No Symptoms Objective Exam General Appearance: mild distress, alert Neurologic Exam: alert, oriented x 3, cooperative, normal mood/affect, nml cerebellar function, sensation nml, No motor deficits Skin Exam: normal color, warm, dry Eye Exam: PERRL, EOMI, eyes nml inspection Ears, Nose, Throat Exam: normal ENT inspection, pharynx normal, moist mucous membranes Neck Exam: normal inspection, non-tender, supple, full range of motion Respiratory Exam: crackles/rales, rhonchi, wheezing, No respiratory distress Cardiovascular Exam: regular rate/rhythm, normal heart sounds Gastrointestinal/Abdomen Exam: soft, No tenderness, No mass Extremity Exam: normal inspection, normal range of motion Back Exam: normal inspection, normal range of motion, No CVA tenderness, No vertebral tenderness Male Genitalia Exam: deferred Rectal Exam: deferred OBJECTIVE DATA Vital Signs: Vital Signs - 24 hr Temp Pulse Resp BP BP BP Pulse Ox 09/19/22 09:36 89 140/100 09/19/22 07:45 97.7 F 89 18 140/100 95 09/19/22 07:36 95 09/19/22 03:39 98.1 F 79 20 141/104 95 09/18/22 23:24 98.3 F 71 18 142/100 96 09/18/22 20:21 97.9 F 81 20 167/94 95 09/18/22 19:45 97.4 F 85 18 173/117 153/100 95 09/18/22 16:00 97.4 F 85 18 173/117 95 09/18/22 12:00 98.5 F 66 18 153/100 96 Pain Assessment - Last Documented Pain Intensity 0 Pain Scale Used 0-10 Pain Scale Intake and Output: Intake & Output 09/16/22 09/17/22 09/18/22 09/19/22 11:59 11:59 11:59 11:59 Intake Total 1140 2520 2040 2140 Output Total 0378 [id number] [facility] ([facility] -4960 -4730 -4650 -5910 Weight 126.5 kg Lab Results: Lab Results-Last 24 Hours 09/18/22 09/18/22 09/18/22 Range/Units 11:33 16:30 20:45 WBC (4.0-10.5) x10^3/uL RBC (4.1-5.6) x10^6/uL Hgb (12.5-18.0) g/dL Hct (42-50) % MCV (78-100) fL MCH (26-32) pg MCHC (32-36) g/dL RDW (11.5-14.0) % Plt Count (150-450) x10^3/uL MPV (7.5-11.0) fL Sodium (137-145) mmol/L Potassium (3.5-5.1) mmol/L Chloride (98-107) mmol/L Carbon Dioxide (22-30) mmol/L Anion Gap (5-15) MEQ/L BUN (9-20) mg/dL Creatinine (0.66-1.25) mg/dL Estimated GFR ML/MIN Glucose (74-106) mg/dL POC Glucometer 306 H 314 H 373 H (74 to 106) mg/dL Calcium (8.4-10.2) mg/dL Total Bilirubin (0.2-1.3) mg/dL AST (17-59) U/L ALT (0-50) U/L Alkaline Phosphatase (38-126) U/L Serum Total Protein (6.3-8.2) g/dL Albumin (3.5-5.0) g/dL 09/19/22 09/19/22 09/19/22 Range/Units 05:42 05:42 07:12 WBC 6.3 (4.0-10.5) x10^3/uL RBC 5.58 (4.1-5.6) x10^6/uL Hgb 15.3 (12.5-18.0) g/dL Hct 48.0 (42-50) % MCV 86.0 (78-100) fL MCH 27.4 (26-32) pg MCHC 31.9 L (32-36) g/dL RDW 16.6 H (11.5-14.0) % Plt Count 157 (150-450) x10^3/uL MPV 11.5 H (7.5-11.0) fL Sodium 135 L (137-145) mmol/L Potassium 3.1 L (3.5-5.1) mmol/L Chloride 92 L (98-107) mmol/L Carbon Dioxide 39 H (22-30) mmol/L Anion Gap 7.1 (5-15) MEQ/L BUN 31 H (9-20) mg/dL Creatinine 0.80 (0.66-1.25) mg/dL Estimated GFR > 60.0 ML/MIN Glucose 293 H (74-106) mg/dL POC Glucometer 298 H (74 to 106) mg/dL Calcium 8.2 L (8.4-10.2) mg/dL Total Bilirubin 1.70 H (0.2-1.3) mg/dL AST 82 H (17-59) U/L ALT 75 H (0-50) U/L Alkaline Phosphatase 215 H (38-126) U/L Serum Total Protein 6.7 (6.3-8.2) g/dL Albumin 3.5 (3.5-5.0) g/dL Radiology Exams: Radiology Procedures Category Date Time Status CHEST 2 VIEWS (PA AND LAT) DAILY Exams 09/19/22 07:32 Completed Assessment/Plan (1) CHF (congestive heart failure) Current Visit: Yes Status: Acute Qualifiers: Heart failure type: combined systolic and diastolic Heart failure chronicity: acute on chronic Qualified Code(s): I50.43 - Acute on chronic combined systolic (congestive) and diastolic (congestive) heart failure Assessment & Plan: Chief Complaint Diagnosis CHF, PNEUMONIA, FLU, SOB, PLEURAL EFFUSION Allergies Allergy/AdvReac Type Severity Reaction Status Date / Time No Known Drug Allergies Allergy Verified 09/15/22 15:39 Vital Signs (Last 24 hours) Temp Pulse Resp BP BP BP Pulse Ox 09/19/22 09:36 89 140/100 09/19/22 07:45 97.7 F 89 18 140/100 95 09/19/22 07:36 95 09/19/22 03:39 98.1 F 79 20 141/104 95 09/18/22 23:24 98.3 F 71 18 142/100 96 09/18/22 20:21 97.9 F 81 20 167/94 95 09/18/22 19:45 97.4 F 85 18 173/117 153/100 95 09/18/22 16:00 97.4 F 85 18 173/117 95 09/18/22 12:00 98.5 F 66 18 153/100 96 Home Medications Medication Instructions Recorded Confirmed Last Taken Type Diltiazem HCl [Cartia Xt] 120 mg PO DAILY 09/15/22 09/15/22 Unknown History Current Medications Generic Name Dose Route Start Last Admin Trade Name Freq PRN Reason Stop Dose Admin Acetaminophen 650 mg 09/15/22 15:25 09/16/22 21:07 Acetaminophen 325 Mg Tablet PO 10/15/22 15:24 650 mg Q4H PRN PRN Administration PAIN AND/OR FEVER Al Hydrox/Mg Hydrox/Simethicone 30 ml 09/15/22 15:25 Mag Hydrox/Al Hydrox/Simeth 30 Ml Udcup PO 10/15/22 15:24 Q4H PRN PRN INDIGESTION Apixaban 5 mg 09/15/22 22:00 09/19/22 09:37 Apixaban 2.5 Mg Tablet PO 10/15/22 21:59 5 mg BID KALLIE Administration Aspirin 325 mg 09/15/22 15:25 09/19/22 09:36 Aspirin 325 Mg Tablet.Ec PO 10/15/22 15:24 325 mg DAILY KALLIE Administration Benazepril HCl 40 mg 09/15/22 17:00 09/19/22 09:36 Benazepril Hcl 10 Mg Tablet PO 10/15/22 16:59 40 mg DAILY KALLIE Administration Methylprednisolone Sodium 0 mg 09/15/22 18:00 09/19/22 05:14 Succinate 80 mg/ Sterile Water IV 10/15/22 17:59 80 mg 2 ml Q6HT KALLIE Administration Digoxin 0.25 mg 09/17/22 10:00 09/19/22 09:36 Digoxin 0.125 Mg Tablet PO 10/17/22 09:59 0.25 mg DAILY KALLIE Administration Diltiazem HCl 240 mg 09/17/22 10:00 09/19/22 09:36 Diltiazem Hcl Cd 120 Mg Cap.Sr.24h PO 10/17/22 09:59 240 mg DAILY KALLIE Administration Duloxetine HCl 60 mg 09/15/22 17:00 09/19/22 09:36 Duloxetine Hcl 30 Mg Cap PO 10/15/22 16:59 60 mg DAILY KALLIE Administration Furosemide 60 mg 09/15/22 17:00 09/19/22 09:37 Furosemide 100 Mg/10 Ml Vial IV 10/15/22 16:59 60 mg BID DIURETIC KALLIE Administration Ceftriaxone Sodium/Dextrose 1 g in 50 mls @ 100 mls/hr 09/15/22 22:00 09/18/22 20:57 Rocephin 1 Gm-D5w 50 Ml Bag IV 09/19/22 21:59 100 mls/hr HS KALLIE Administration Insulin Human Lispro 0 unit 09/15/22 16:30 09/19/22 09:35 Insulin Lispro 1 Unit SQ 10/15/22 16:29 7 unit UD PRN Administration HYPERGLYCEMIA Magnesium Hydroxide 30 - 60 ml 09/15/22 15:25 Magnesium Hydroxide 30 Ml Udcup PO 10/15/22 15:24 QDP PRN CONSTIPATION Magnesium Oxide 400 mg 09/15/22 22:00 09/19/22 09:38 Magnesium Oxide 400 Mg Tablet PO 10/15/22 21:59 400 mg TID KALLIE Administration Morphine Sulfate 2 mg 09/15/22 15:25 Morphine Sulfate 2 Mg/Ml Inj IV 09/20/22 15:24 Q4H PRN PRN PAIN Ondansetron HCl 4 mg 09/15/22 15:25 Ondansetron Hcl 4 Mg/2 Ml Vial IV 10/15/22 15:24 Q4H PRN PRN NAUSEA/VOMITING Potassium Chloride 20 meq 09/15/22 18:00 09/18/22 18:00 Potassium Chloride Tab 10 Meq Tab PO 10/15/22 17:59 20 meq EVENING MEAL KALLIE Administration Potassium Chloride 40 meq 09/16/22 10:00 09/19/22 09:36 Potassium Chloride Tab 10 Meq Tab PO 10/16/22 09:59 40 meq DAILY KALLIE Administration Senna/Docusate Sodium 2 udtab 09/15/22 15:25 Senna/Docusate Sodium 1 Udtab Tablet PO 10/15/22 15:24 BID PRN PRN CONSTIPATION Simvastatin 10 mg 09/15/22 22:00 09/18/22 20:56 Simvastatin 10 Mg Tablet PO 10/15/22 21:59 10 mg HS KALLIE Administration Tamsulosin HCl 0.4 mg 09/15/22 22:00 09/18/22 20:56 Tamsulosin Hcl 0.4 Mg Cap PO 10/15/22 21:59 0.4 mg HS KALLIE Administration Discontinued Medications Generic Name Dose Route Start Last Admin Trade Name Bassem PRN Reason Stop Dose Admin Albuterol Sulfate 2.5 mg 09/14/22 21:42 09/14/22 21:50 Albuterol Sulfate 2.5 Mg/3 Ml Neb IH 09/14/22 21:43 2.5 mg STAT ONE Administration Albuterol Sulfate Confirm 09/14/22 21:45 Albuterol Sulfate 2.5 Mg/3 Ml Neb Administered 09/14/22 21:46 Dose 2.5 mg IH .STK-MED ONE Amlodipine Besylate 5 mg 09/15/22 12:01 09/15/22 12:23 Amlodipine Besylate 5 Mg Tablet PO 09/15/22 12:02 5 mg STAT ONE Administration Amlodipine Besylate Confirm 09/15/22 12:22 Amlodipine Besylate 5 Mg Tablet Administered 09/15/22 12:23 Dose 5 mg .ROUTE .STK-MED ONE Clonidine 0.1 mg 09/15/22 12:01 09/15/22 12:23 Clonidine Hcl 0.1 Mg Tablet PO 09/15/22 12:02 0.1 mg STAT ONE Administration Clonidine Confirm 09/15/22 12:22 Clonidine Hcl 0.1 Mg Tablet Administered 09/15/22 12:23 Dose 0.1 mg .ROUTE .STK-MED ONE Methylprednisolone Sodium 0 mg 09/14/22 21:42 09/14/22 22:01 Succinate 125 mg/ Sterile IV 09/14/22 21:43 125 mg Water 2 ml STAT ONE Administration Digoxin 0.25 mg 09/16/22 14:00 09/16/22 14:07 Digoxin 0.125 Mg Tablet PO 09/16/22 14:01 0.25 mg NOW ONE Administration Diltiazem HCl 120 mg 09/15/22 17:00 09/16/22 09:20 Diltiazem Hcl Cd 120 Mg Cap.Sr.24h PO 10/15/22 16:59 120 mg DAILY KALLIE Administration Diltiazem HCl 120 mg 09/16/22 17:00 09/16/22 16:53 Diltiazem Hcl Cd 120 Mg Cap.Sr.24h PO 09/16/22 17:01 120 mg ONCE ONE Administration Furosemide 60 mg 09/14/22 22:49 09/14/22 23:06 Furosemide 40 Mg/4 Ml Vial IV 09/14/22 22:50 60 mg STAT ONE Administration Furosemide Confirm 09/14/22 23:04 Furosemide 40 Mg/4 Ml Vial Administered 09/14/22 23:05 Dose 40 mg .ROUTE .STK-MED ONE Furosemide Confirm 09/14/22 23:07 Furosemide 20 Mg/Vial Administered 09/14/22 23:08 Dose 20 mg .ROUTE .STK-MED ONE Furosemide Confirm 09/14/22 23:10 Furosemide 40 Mg/4 Ml Vial Administered 09/14/22 23:11 Dose 40 mg .ROUTE .STK-MED ONE Hydralazine HCl 10 mg 09/15/22 13:48 09/15/22 13:54 Hydralazine Hcl 20 Mg/Ml Vial IV 09/15/22 13:49 10 mg STAT ONE Administration Hydralazine HCl Confirm 09/15/22 13:53 Hydralazine Hcl 20 Mg/Ml Vial Administered 09/15/22 13:54 Dose 20 mg .ROUTE .STK-MED ONE Nitroglycerin/Dextrose 250 mls @ 1.5 mls/hr 09/14/22 23:18 09/15/22 07:39 Ntg 0.2mg/Ml In D5w Glass IV 10/14/22 23:17 10 mcg/min .Q24H PRN 3 mls/hr CHEST PAIN Titration Protocol 5 MCG/MIN Ceftriaxone Sodium/Dextrose 2 g in 50 mls @ 100 mls/hr 09/15/22 00:25 09/15/22 07:19 Rocephin 2 Gm-D5w 50ml Bag IV 09/15/22 00:54 Infused STAT STA Infusion Azithromycin 500 mg in 250 mls @ 250 mls/hr 09/15/22 00:26 09/15/22 07:19 Zithromax 500 Mg/ 250 Ml Nacl Premix IV 09/15/22 01:25 Infused STAT STA Infusion Ceftriaxone Sodium/Dextrose Confirm 09/15/22 00:38 Rocephin 2 Gm-D5w 50ml Bag Administered 09/15/22 00:39 Dose 2 g in 50 mls @ IV .STK-MED ONE Azithromycin Confirm 09/15/22 01:09 Zithromax 500 Mg/ 250 Ml Nacl Premix Administered 09/15/22 01:10 Dose 500 mg in 250 mls @ ud IV .STK-MED ONE Azithromycin 500 mg in 250 mls @ 250 mls/hr 09/15/22 22:00 09/15/22 21:55 Zithromax 500 Mg/ 250 Ml Nacl Premix IV 10/15/22 21:59 250 mls/hr [facility] Administration Methylprednisolone Sodium Succinate Confirm 09/14/22 22:01 Methylprednis Sod Succ 125 Mg/2 Ml Vial Administered 09/14/22 22:02 Dose 125 mg .ROUTE .STK-MED ONE Methylprednisolone Sodium Succinate Confirm 09/17/22 16:48 Methylprednis Sod Succ 125 Mg/2 Ml Vial Administered 09/17/22 16:49 Dose 125 mg .ROUTE .STK-MED ONE Metoprolol Succinate 50 mg 09/18/22 13:52 09/18/22 14:44 Metoprolol Succinate 25 Mg Xl Tab PO 09/18/22 13:53 50 mg ONCE ONE Administration Non-Formulary Medication 1 each 09/14/22 23:20 Hold Metformin Products For 48hrs 09/16/22 23:20 [facility] Oseltamivir Phosphate 75 mg 09/14/22 23:24 09/14/22 23:43 Oseltamivir 75 Mg Cap PO 09/14/22 23:25 75 mg ONCE STA Administration Oseltamivir Phosphate Confirm 09/14/22 23:42 Oseltamivir 75 Mg Cap Administered 09/14/22 23:43 Dose 75 mg PO .STK-MED ONE Sterile Water Confirm 09/14/22 22:01 Water For Injection,Sterile 10 Ml Vial Administered 09/14/22 22:02 Dose 10 ml IJ .STK-MED ONE Intake & Output (Last 24 hours) 09/16/22 09/17/22 09/18/22 09/19/22 11:59 11:59 11:59 11:59 Intake Total 1140 2520 2040 2140 Output Total 7417 7936 6630 3580 Balance -3397 -4730 -4650 -5910 Weight 126.5 kg Microbiology Results (Last 24 hours) 09/14/22 22:00 Blood Blood Culture Gram Stain - Final Not Reportable 09/14/22 22:00 Blood Blood Culture - Final NO GROWTH 09/14/22 21:50 Blood Blood Culture Gram Stain - Final Not Reportable 09/14/22 21:50 Blood Blood Culture - Final NO GROWTH Laboratory Results (Last 24 hours) 09/19/22 09/19/22 09/19/22 07:12 05:42 05:42 WBC 6.3 RBC 5.58 Hgb 15.3 Hct 48.0 MCV 86.0 MCH 27.4 MCHC 31.9 L RDW 16.6 H Plt Count 157 MPV 11.5 H Sodium 135 L Potassium 3.1 L Chloride 92 L Carbon Dioxide 39 H Anion Gap 7.1 BUN 31 H Creatinine 0.80 Estimated GFR > 60.0 Glucose 293 H POC Glucometer 298 H Calcium 8.2 L Total Bilirubin 1.70 H AST 82 H ALT 75 H Alkaline Phosphatase 215 H Serum Total Protein 6.7 Albumin 3.5 09/18/22 09/18/22 09/18/22 20:45 16:30 11:33 WBC RBC Hgb Hct MCV MCH MCHC RDW Plt Count MPV Sodium Potassium Chloride Carbon Dioxide Anion Gap BUN Creatinine Estimated GFR Glucose POC Glucometer 373 H 314 H 306 H Calcium Total Bilirubin AST ALT Alkaline Phosphatase Serum Total Protein Albumin Orders (Last 24 hours) Category Date Time Status CHEST 2 VIEWS (PA AND LAT) DAILY Exams 09/19/22 07:32 Completed CBC AM.LAB Lab 09/19/22 05:42 Completed CMP AM.LAB Lab 09/19/22 05:42 Completed POCT GLUCOSE Stat Lab 09/18/22 11:33 Completed POCT GLUCOSE Stat Lab 09/18/22 16:30 Completed POCT GLUCOSE Stat Lab 09/18/22 20:45 Completed POCT GLUCOSE Stat Lab 09/19/22 07:12 Completed Metoprolol Succinate 25 mg Xl* [Toprol-Xl 25MG Tablets* Med 09/18/22 13:52 Discontinued ] 50 mg PO ONCE ONE Patient Care Notes (Last 24 hours) 09/18/22 13:00 (created 09/18/22 19:24) Nursing Note by Terri Marin ROUNDED ON PT WITH DR. MARCIAL. REVIEWED V/S AND LABS. REC. ORDER TO GIVE METOPROLOL ER 50MG X 1 NOW. Initialized on 09/18/22 19:24 - END OF NOTE Code(s): I50.9 - HEART FAILURE, UNSPECIFIED (2) Influenza A Current Visit: Yes Status: Acute Code(s): J10.1 - FLU DUE TO OTH IDENT INFLUENZA VIRUS W OTH RESP MANIFEST (3) Atrial fibrillation Current Visit: Yes Status: Acute Qualifiers: Atrial fibrillation type: paroxysmal Qualified Code(s): I48.0 - Paroxysmal atrial fibrillation Code(s): I48.91 - UNSPECIFIED ATRIAL FIBRILLATION
[2022-09-19] MEDS ORDERED: solu-MEDROL ONE (11:59)
[2022-09-19] MEDS: ROCEPHIN 1 Gm-D5w 50 ml Bag** 1 G/50 ML IVPB IV SCH (21:35)
[2022-09-19] MEDS: Zocor 10MG PO SCH (21:35)
[2022-09-19] MEDS: Flomax 0.4 MG PO SCH (21:35)
[2022-09-20] MEDS: solu-MEDROL 80 MG, Sterile H2O 10 ml 2 ML IV SCH ×4 (05:51→12:27)
--- NOTE | 2022-09-20 08:34 | PCM.DS ---
Discharge Summary Date of Admission: 09/15/22 15:17 Admitting Physician: IRVING HENRY Consults: Consults on Case 09/16/22 08:18 Consult Cardiology ROUTINE Primary Care Provider: IRVING HENRY Allergies Allergies No Known Drug Allergies Allergy (Verified 09/15/22 15:39) Hospital Summary - Hospital Course Hospital Course: patient admitted with shortness of breath, positive influenza with acute exacerbation of chf. he has diuresed a massive amount, currently on room air and feels better. his overall health is poor, lives with his daughter. he is a very poor historian. 8kg weight loss since admission noted after diuresis. - Vitals & Intake/Output Vital Signs: Vital Signs Temperature 98.4 F 09/20/22 07:35 Pulse Rate 60 09/20/22 07:35 Respiratory Rate 16 09/20/22 07:35 Blood Pressure 137/88 09/20/22 07:35 O2 Sat by Pulse Oximetry 93 L 09/20/22 07:48 Intake & Output: Intake & Output 09/17/22 09/18/22 09/19/22 09/20/22 11:59 11:59 11:59 11:59 Intake Total 2520 2040 2140 1250 Output Total 7250 6690 8050 3650 Balance -5526 -7819 -5910 -2400 Weight 120.2 kg - Lab Result Diagrams: 09/19/22 05:42 09/19/22 05:42 Lab Results-Last 24 Hrs: Lab Results-Last 24 Hours 09/19/22 09/19/22 09/19/22 Range/Units 12:05 16:50 16:51 POC Glucometer 371 H 353 H (74 to 106) mg/dL Ammonia < 9 L (9-30) umol/L 09/19/22 09/20/22 Range/Units 20:39 07:26 POC Glucometer 411 H 307 H (74 to 106) mg/dL Ammonia (9-30) umol/L Micro Results-Entire Visit: Microbiology 09/19/22 18:09 Urine Culture - Preliminary Urine, Indwelling Catheter NO GROWTH TO DATE 09/14/22 22:00 Blood Culture Gram Stain - Final Blood Not Reportable Blood Culture - Final NO GROWTH 09/14/22 21:50 Blood Culture Gram Stain - Final Blood Not Reportable Blood Culture - Final NO GROWTH Accuchecks Date 09/20/22 Date 09/19/22 Date 09/19/22 Time 07:34 Time 22:00 Time 20:45 - Radiology Exams Ordered Rad Exams-Entire Visit: Radiology Procedures Category Date Time Status CHEST 2 VIEWS (PA AND LAT) DAILY Exams 09/19/22 07:32 Completed - Procedures and Test Procedures and Tests throughout Hospitalization: Therapy Orders & Screens 09/14/22 22:04 Respiratory Therapy Assessment DAILY Comment: 09/15/22 00:28 BiPap/CPAP ROUTINE Comment: 09/15/22 15:25 Oxygen NASAL CANNULA 2 lpm Comment: Diagnosis: CHF 09/15/22 15:50 Smoking Cessation Education ONCE Comment: Diagnosis: CHF, PNEUMONIA, FLU, SOB, PLEURAL EFFUSION Smoking Status: Current some day smoker How long have you smoked: 20 YEARS Have you smoked in the past 12 months: Yes Do you dip or chew tobacco: No 09/15/22 16:00 EKG ROUTINE Comment: Diagnosis: CHF, PNEUMONIA, FLU, SOB, PLEURAL EFFUSION 09/16/22 05:00 EKG ROUTINE Comment: Diagnosis: CHF, PNEUMONIA, FLU, SOB, PLEURAL EFFUSION 09/17/22 05:00 EKG ROUTINE Comment: Diagnosis: CHF, PNEUMONIA, FLU, SOB, PLEURAL EFFUSION 09/17/22 15:16 PT Eval & Treat (MD Order) ONCE Reason for Eval:: weakness, unsteady gait Diagnosis: CHF, PNEUMONIA, FLU, SOB, PLEURAL EFFUSION 09/18/22 05:00 EKG ROUTINE Comment: Diagnosis: CHF, PNEUMONIA, FLU, SOB, PLEURAL EFFUSION Discharge Exam General Appearance: no apparent distress, obese Neurologic Exam: alert, cooperative Respiratory Exam: crackles/rales Cardiovascular Exam: normal heart sounds, irregular Gastrointestinal/Abdomen Exam: soft, No tenderness, No mass Extremity Exam: pedal edema, swelling Skin Exam: normal color, warm, dry Final Diagnosis/Problem List - Final Discharge Diagnosis/Problem (1) CHF (congestive heart failure) Current Visit: Yes Status: Acute Assessment & Plan: appears euvolemic at this time. Code(s): I50.9 - HEART FAILURE, UNSPECIFIED (2) Atrial fibrillation Current Visit: Yes Status: Acute Assessment & Plan: rate is controlled, continue eliquis Code(s): I48.91 - UNSPECIFIED ATRIAL FIBRILLATION (3) Elevated troponin Current Visit: Yes Status: Acute Code(s): R77.8 - OTHER SPECIFIED ABNORMALITIES OF PLASMA PROTEINS (4) Influenza A Current Visit: Yes Status: Acute Code(s): J10.1 - FLU DUE TO OTH IDENT INFLUENZA VIRUS W OTH RESP MANIFEST - Discharge Disposition: Home, Self-Care Condition: Good Prescriptions: Continue Atorvastatin Calcium [Lipitor 20MG Tablet] 20 mg PO HS Duloxetine HCl 30 mg [Cymbalta 30 MG Capsule] 60 mg PO DAILY Benazepril HCl 40 mg PO DAILY Metformin HCl 1000 mg [Glucophage 1000 MG] 1,000 mg PO BID Empagliflozin [Jardiance] 25 mg PO DAILY Tamsulosin HCl 0.4 mg [Flomax 0.4 MG] 0.4 mg PO HS Potassium Chloride Tab* [Klor Con] 20 meq PO EVENING MEAL Potassium Chloride 40 meq PO DAILY Furosemide 20 mg [Lasix 20 mg] 60 mg PO BID Apixaban [Eliquis 2.5 mg Tablet] 5 mg PO BID Magnesium Oxide 400 mg [Mag-Ox 400] 400 mg PO TID Changed Diltiazem HCl [Cartia Xt] 240 mg PO DAILY #30 cap Outpatient Orders: Physical Therapy Eval & Treat Facility: [facility], Location: PHYSICAL THERAPY Instructions: Heart Failure, Adult (DC) Follow up with: CHERI DANIELS [CONSULTING PHYSICIAN] - Call for Appointment (CALL AND SCHEDULE FOLLOW UP WITH HALLEY SALAZAR NP 1 WEEK POST DISCHARGE) IRVING HENRY MD [Primary Care Provider] - 09/24/22 11:15 am
[2022-09-20] MEDS: Lanoxin 0.125MG TABLET PO SCH (09:40)
[2022-09-20] MEDS: Ecotrin 325 MG PO SCH (09:40)
[2022-09-20] MEDS: Furosemide 100mg/10 ml Vial IV SCH ×2 (09:40→17:40)
[2022-09-20] MEDS: MAG-OX 400 PO SCH ×2 (09:40→16:13)
[2022-09-20] MEDS: Klor Con PO SCH (09:41)
[2022-09-20] MEDS: Cardizem CD PO SCH (09:41)
[2022-09-20] MEDS: Lotensin PO SCH (09:41)
[2022-09-20] MEDS: ELIQUIS 2.5 MG TABLET PO SCH (09:41)
[2022-09-20] MEDS: Cymbalta 30 MG Capsule PO SCH (09:41)
[2022-09-20] MEDS: HUMALOG SQ PRN ×2 (09:56→12:34)
[2022-09-20 16:34] VITALS: BP 167/91; PULSE 76; O2SAT 94
== END 2022-09-20 19:05 | disposition home or self-care (01) ==
LOC: ED 21:00 → ICU 09-15 15:17 → MED SURG 09-17 09:43
PROVIDERS: ADMIT Family Medicine; ATTEND Family Medicine
DX: I11.0 Hypertensive heart disease with heart failure (principal); I50.9 Heart failure, unspecified; I48.91 Unspecified atrial fibrillation; R77.8 Other specified abnormalities of plasma proteins; J10.1 Influenza due to other identified influenza virus with other respiratory manifestations; J18.9 Pneumonia, unspecified organism; E11.9 Type 2 diabetes mellitus without complications; R60.9 Edema, unspecified; I34.0 Nonrheumatic mitral (valve) insufficiency; Z72.0 Tobacco use; Z79.01 Long term (current) use of anticoagulants; Z20.828 Contact with and (suspected) exposure to other viral communicable diseases; Z79.899 Other long term (current) drug therapy
CPT/HCPCS: 0241U; 36000; 36415; 36600; 71045; 71046; 71260; 80048; 80053; 80061; 82140; 82375; 82803; 82947; 83721; 83735; 83880; 84484; 85025; 85027; 85379; 87040; 87086; 93005; 93041; 93268; 94002; 94003; 94640; 94760; 94762; 96365; 96374; 96375; 97161; 99285; G0008; G0378; 90686; J0360; J0456; J0696; J1817; J1940; J2930; J7609; A9270-GY

== ENCOUNTER 2023-06-20 22:06 | Inpatient (IN) | payer OTHER ==
--- NOTE | 2023-06-20 22:14 | ERPHSYRPT ---
- History of Present Illness Time Seen by Provider: 06/20/23 22:14 Source: patient, family, old records Exam Limitations: other (Patient poor historian) Physician History: This is an obese 63-year-old white male patient of Dr. Morris who in the last 2 to 3 days has chosen not to take his medication because he was not feeling well. Not surprisingly, he has had increased shortness of breath and swelling in his bilateral lower extremities. Although he feels short of breath, his room air oxygenation saturation levels on arrival to the emergency department of 97 to 99%. Patient denies chest pain. Patient requested placement of 2 L of oxygen via nasal cannula. We applied this for patient comfort. Patient's mobile ui/ux designer is Dr. Poe. Patient does have a history of atrial fibrillation. He is supposed to be taking metoprolol, diltiazem and Eliquis. Patient has a history of CHF, hyperlipidemia, diabetes and hypertension. He arrives to the emergency department with a heart rate in the 110s to 118 bpm range. He has atrial fibrillation with mild RVR. His systolic blood pressure on arrival to emergency department is 172. Patient is a poor historian and his daughter provided independent, additional medical history. In addition, I reviewed old inpatient admission notes on this patient. Timing/Duration: day(s) (2 to 3 days), worse Activities at Onset: activity (Worsens) Severity of Dyspnea-Max: moderate Severity of Dyspnea-Current: mild Possible Cause: occasional episodes (Moderate likely secondary to noncompliance with his medication) Modifying Factors: Improves With: activity (Worsens) Associated Symptoms: No chest pain/discomfort Allergies/Adverse Reactions: No Known Drug Allergies Allergy (Verified 06/20/23 22:10) Home Medications: Atorvastatin Calcium [Lipitor 20MG Tablet] 20 mg PO HS 08/12/16 [History] Benazepril HCl 40 mg PO DAILY 08/12/16 [History] Duloxetine HCl 30 mg [Cymbalta 30 MG Capsule] 60 mg PO DAILY 08/12/16 [History] Empagliflozin [Jardiance] 25 mg PO DAILY 08/12/16 [History] Metformin HCl 1000 mg [Glucophage 1000 MG] 500 mg PO BID 08/12/16 [History] Tamsulosin HCl 0.4 mg [Flomax 0.4 MG] 0.4 mg PO HS 06/02/22 [History] Apixaban [Eliquis 2.5 mg Tablet] 5 mg PO BID 08/31/22 [History] Furosemide 20 mg [Lasix 20 mg] 80 mg PO BID 08/31/22 [History] Magnesium Oxide 400 mg [Mag-Ox 400] 400 mg PO TID 08/31/22 [History] Potassium Chloride 40 meq PO DAILY 08/31/22 [History] Potassium Chloride Tab* [Klor Con] 20 meq PO EVENING MEAL 08/31/22 [History] Clonidine HCl 0.1 mg [Clonidine 0.1 mg Tablet] 0.2 mg PO TID 06/20/23 [History] Diltiazem HCl [Cartia Xt] 120 mg PO DAILY 06/20/23 [History] Gabapentin 600 mg PO BID 06/20/23 [History] Hydralazine HCl 50 mg PO BID 06/20/23 [History] Metoprolol Tartrate 50 mg [Lopressor 50 MG] 50 mg PO BID 06/20/23 [H istory] Hx Tetanus, Diphtheria Vaccination/Date Given: No Hx Influenza Vaccination/Date Given: No Hx Pneumococcal Vaccination/Date Given: No Travel Risk - International Travel Have you traveled outside of the country in past 3 weeks: No - Coronavirus Screening Are you exhibiting any of the following symptoms?: Yes Symptoms: Shortness of Breath - Vaccine Status Have you recieved a Covid-19 vaccination: No - Review of Systems Constitutional: Weakness Eyes: No Symptoms Ears, Nose, & Throat: No Symptoms Respiratory: Dyspnea, Dyspnea on Exertion (HOUSER) Cardiac: No Symptoms Abdominal/Gastrointestinal: No Symptoms Genitourinary Symptoms: No Symptoms Musculoskeletal: No Symptoms Skin: No Symptoms Neurological: No Symptoms Psychological: No Symptoms Endocrine: No Symptoms Hematologic/Lymphatic: No Symptoms Immunological/Allergic: No Symptoms All Other Systems: Reviewed and Negative - Past Medical History Pertinent Past Medical History: Yes Neurological History: TIA ENT History: Other Cardiac History: Arrhythmia, Other Respiratory History: No Pertinent History Endocrine Medical History: Diabetes Type II Musculoskeletal History: No Pertinent History GI Medical History: No Pertinent History History: No Pertinent History Psycho-Social History: Anxiety, Depression Male Reproductive Disorders: No Pertinent History Other Medical History: R SHOULDER INSTABILITY - Past Surgical History Past Surgical History: Yes Neuro Surgical History: No Pertinent History Cardiac: No Pertinent History Respiratory: No Pertinent History Gastrointestinal: No Pertinent History Genitourinary: No Pertinent History Musculoskeletal: Orthopedic Surgery Male Surgical History: No Pertinent History Other Surgical History: shoulder - Social History Smoking Status: Current some day smoker How long have you smoked: 20 YEARS Exposure to second hand smoke: No Drug Use: none Patient Lives Alone: Yes Significant Family History: no pertinent family hx - Nursing Vital Signs Nursing Vital Signs: Initial Vital Signs Temperature 97.6 F 06/20/23 22:11 Pulse Rate 108 H 06/20/23 22:11 Respiratory Rate 20 06/20/23 22:11 Blood Pressure 179/125 06/20/23 22:11 O2 Sat by Pulse Oximetry 99 06/20/23 22:11 Pain Scale Pain Intensity 0 - Physical Exam General Appearance: mild distress, alert, obese Eye Exam: PERRL/EOMI, eyes nml inspection Ears, Nose, Throat Exam: hearing grossly normal, normal ENT inspection, normal pharynx Neck Exam: normal inspection, non-tender, supple, full range of motion Respiratory Exam: normal breath sounds, lungs clear, airway intact, No chest tenderness, No respiratory distress, No rhonchi, No wheezing, No stridor Cardiovascular/Chest Exam: tachycardia, irregular Abdominal/Gastrointestinal Exam: soft, normal bowel sounds, No tenderness Rectal Exam: not done Extremity Exam: non-tender, normal range of motion, no calf tenderness, pelvis stable, pedal edema Neurologic Exam: alert, oriented x 3, cooperative, signal and communications maintainer II-XII nml as tested, normal mood/affect, sensation nml Skin Exam: normal color, warm, dry Lymphatic Exam: No adenopathy SpO2 Interpretation: normal SpO2: 99 O2 Delivery: Room Air - Course Nursing assessment & vital signs reviewed: Yes EKG Interpreted by Me: RATE ([id number]), Non-specific ST Changes, Other (No acute ischemic changes on today's twelve-lead EKG) Ordered Tests: Active Orders 24 hr Category Date Time Status [employer]istrar STAT Care 06/20/23 22:38 Active EKG-ER Only STAT Care 06/20/23 22:38 Active [place] [Catheter-[place] [facility]] STAT Care 06/20/23 23:54 Active IV Insertion STAT Care 06/20/23 22:38 Active Oxygen-ED Only Nasal Cannula 2 lpm Care 06/20/23 22:39 Active Pulse Oximetry (ED) STAT Care 06/20/23 22:39 Active Telemetry q4h Care 06/21/23 00:39 Active Telemetry q4h Care 06/21/23 01:30 Active CHEST 1 VIEW (PORTABLE) Stat Exams 06/20/23 22:38 Completed CBC W DIFF Stat Lab 06/20/23 22:50 Completed CMP Stat Lab 06/21/23 00:00 Completed CULTURE,URINE Stat Lab 06/21/23 00:04 Received MAG [MAGNESIUM] Stat Lab 06/21/23 00:05 Completed NT PRO BNPII Stat Lab 06/20/23 22:45 Completed PROTIME WITH INR Stat Lab 06/20/23 22:45 Completed TROPONIN Q4H Lab 06/20/23 22:45 Completed TROPONIN Q4H Lab 06/21/23 02:45 Ordered TROPONIN Q4H Lab 06/21/23 06:45 Ordered UA W/RFX UR CULTURE Stat Lab 06/21/23 00:04 Completed Transfer Order Routine Transfer 06/21/23 Ordered Medication Summary Generic Name Dose Route Start Last Admin Trade Name Freq PRN Reason Stop Dose Admin Potassium Chloride 20 meq in 100 mls @ 50 mls/hr 06/21/23 00:39 06/21/23 00:57 Potassium Chloride 20 Meq In Water 100ml IV 06/21/23 02:38 50 mls/hr STAT ONE Administration Sodium Chloride 1,000 mls @ 50 mls/hr 06/21/23 01:00 06/21/23 00:58 Sodium Chloride 0.9% 1000 Ml IV 07/21/23 00:59 50 mls/hr .Q20H KALLIE Administration Potassium Chloride 20 meq in 100 mls @ 50 mls/hr 06/21/23 01:29 Potassium Chloride 20 Meq In Water 100ml IV 06/21/23 03:28 STAT ONE Discontinued Medications Generic Name Dose Route Start Last Admin Trade Name Freq PRN Reason Stop Dose Admin Diltiazem HCl 10 mg 06/20/23 22:40 06/20/23 23:14 Diltiazem Hcl Iv 5 Mg/Ml Vial IV 06/20/23 22:41 10 mg STAT ONE Administration Diltiazem HCl Confirm 06/20/23 23:13 Diltiazem Hcl Iv 5 Mg/Ml Vial Administered 06/20/23 23:14 Dose 50 mg IV .STK-MED ONE Furosemide 40 mg 06/20/23 22:58 06/20/23 23:14 Furosemide 40 Mg/4 Ml Vial IV 06/20/23 22:59 40 mg STAT ONE Administration Furosemide Confirm 06/20/23 23:12 Furosemide 40 Mg/4 Ml Vial Administered 06/20/23 23:13 Dose 40 mg .ROUTE .STK-MED ONE Hydralazine HCl 10 mg 06/21/23 00:43 06/21/23 00:58 Hydralazine Hcl 20 Mg/Ml Vial IV 06/21/23 00:44 10 mg STAT ONE Administration Hydralazine HCl Confirm 06/21/23 00:50 Hydralazine Hcl 20 Mg/Ml Vial Administered 06/21/23 00:51 Dose 20 mg .ROUTE .STK-MED ONE Ceftriaxone Sodium/Dextrose 1 g in 50 mls @ 100 mls/hr 06/21/23 00:38 06/21/23 00:57 Rocephin 1 Gm-D5w 50 Ml Bag IV 06/21/23 01:07 100 mls/hr STAT STA 100 mls/hr Administration Ceftriaxone Sodium/Dextrose Confirm 06/21/23 00:50 Rocephin 1 Gm-D5w 50 Ml Bag Administered 06/21/23 00:51 Dose 1 g in 50 mls @ ud IV .STK-MED ONE Potassium Chloride Confirm 06/21/23 00:50 Potassium Chloride 20 Meq In Water 100ml Administered 06/21/23 00:51 Dose 100 mls @ ud IV .STK-MED ONE Metoprolol Tartrate 5 mg 06/20/23 22:39 06/20/23 23:14 Metoprolol Tartrate 5 Mg/5 Ml Vial IV 06/20/23 22:40 5 mg STAT ONE Administration Metoprolol Tartrate Confirm 06/20/23 23:12 Metoprolol Tartrate 5 Mg/5 Ml Vial Administered 06/20/23 23:13 Dose 5 mg IV .STK-MED ONE Lab/Rad Data: Laboratory Result Diagrams 06/20/23 22:50 06/21/23 00:00 Laboratory Results 06/21/23 06/21/23 06/21/23 Range/Units 00:05 00:04 00:00 WBC (4.0-10.5) x10^3/uL RBC (4.1-5.6) x10^6/uL Hgb (12.5-18.0) g/dL Hct (42-50) % MCV (78-100) fL MCH (26-32) pg MCHC (32-36) g/dL RDW (11.5-14.0) % Plt Count (150-450) x10^3/uL MPV (7.5-11.0) fL Gran % (36.0-66.0) % Immature Gran % (Auto) (0.00-0.4) % Nucleat RBC Rel Count (0.00-0.1) % Eos # (Auto) (0-0.5) x10^3/uL Immature Gran # (Auto) (0.00-0.03) x10^3u/L Absolute Lymphs (auto) (1.0-4.6) x10^3/uL Absolute Monos (auto) (0.0-1.3) x10^3/uL Absolute Nucleated RBC (0.00-0.01) x10^3u/L Lymphocytes % (24.0-44.0) % Monocytes % (0.0-12.0) % Eosinophils % (0.00-5.0) % Basophils % (0.0-0.4) % Absolute Granulocytes (1.4-6.9) x10^3/uL Basophils # (0-0.4) x10^3/uL PT (9.4-12.5) SECONDS INR (0.8-3.0) Sodium 141 (137-145) mmol/L Potassium 3.0 L* (3.5-5.1) mmol/L Chloride 100 (98-107) mmol/L Carbon Dioxide 30 (22-30) mmol/L Anion Gap 13.8 (5-15) MEQ/L BUN 20 (9-20) mg/dL Creatinine 1.34 H (0.66-1.25) mg/dL Estimated GFR 57.6 ML/MIN Glucose 200 H (74-106) mg/dL Calcium 9.6 (8.4-10.2) mg/dL Magnesium 1.9 (1.6-2.3) mg/dL Total Bilirubin 1.60 H (0.2-1.3) mg/dL AST 46 (17-59) U/L ALT 31 (0-50) U/L Alkaline Phosphatase 283 H (38-126) U/L Troponin I (0.000-0.034) ng/mL NT-Pro-B Natriuret Pep (<300) pg/mL Serum Total Protein 8.4 H (6.3-8.2) g/dL Albumin 4.2 (3.5-5.0) g/dL Urine Color Dark Yellow (Yellow) Urine Appearance Clear (Clear) Urine pH 5.5 (4.6-8.0) Ur Specific [place] >=1.030 A (1.005-1.030) Urine Protein >=1000 A (Negative) Urine Glucose (UA) >=1000 A (Negative) mg/dL Urine Ketones Negative (Negative) Urine Blood Small A (Negative) Urine Nitrite Negative (Negative) Urine Bilirubin Negative (Negative) Urine Urobilinogen 1.0 A (0.2) mg/dL Ur Leukocyte Esterase Negative (Negative) U Hyaline Cast (Auto) 6-10 A (0-2) /LPF Urine Microscopic RBC 3-5 (0-5) /HPF Urine Microscopic WBC 0-2 (0-5) /HPF Ur Epithelial Cells None Seen (None Seen) /HPF Urine Bacteria None Seen (None Seen) /HPF Urine Culture Reflexed YES (NO) Influenza Type A Ag (NEGATIVE) Influenza Type B Ag (NEGATIVE) RSV (PCR) (NEGATIVE) SARS-CoV-2 (PCR) (NEGATIVE) 06/20/23 06/20/23 06/20/23 Range/Units 23:20 22:50 22:45 WBC 8.1 (4.0-10.5) x10^3/uL RBC 6.38 H (4.1-5.6) x10^6/uL Hgb 18.5 H (12.5-18.0) g/dL Hct 57.5 H (42-50) % MCV 90.1 (78-100) fL MCH 29.0 (26-32) pg MCHC 32.2 (32-36) g/dL RDW 17.4 H (11.5-14.0) % Plt Count 250 (150-450) x10^3/uL MPV 11.6 H (7.5-11.0) fL Gran % 60.5 (36.0-66.0) % Immature Gran % (Auto) 0.4 (0.00-0.4) % Nucleat RBC Rel Count 0.0 (0.00-0.1) % Eos # (Auto) 0.08 (0-0.5) x10^3/uL Immature Gran # (Auto) 0.03 (0.00-0.03) x10^3u/L Absolute Lymphs (auto) 2.36 (1.0-4.6) x10^3/uL Absolute Monos (auto) 0.57 (0.0-1.3) x10^3/uL Absolute Nucleated RBC 0.00 (0.00-0.01) x10^3u/L Lymphocytes % 29.0 (24.0-44.0) % Monocytes % 7.0 (0.0-12.0) % Eosinophils % 1.0 (0.00-5.0) % Basophils % 2.1 (0.0-0.4) % Absolute Granulocytes 4.92 (1.4-6.9) x10^3/uL Basophils # 0.17 (0-0.4) x10^3/uL PT (9.4-12.5) SECONDS INR (0.8-3.0) Sodium (137-145) mmol/L Potassium (3.5-5.1) mmol/L Chloride (98-107) mmol/L Carbon Dioxide (22-30) mmol/L Anion Gap (5-15) MEQ/L BUN (9-20) mg/dL Creatinine (0.66-1.25) mg/dL Estimated GFR ML/MIN Glucose (74-106) mg/dL Calcium (8.4-10.2) mg/dL Magnesium (1.6-2.3) mg/dL Total Bilirubin (0.2-1.3) mg/dL AST (17-59) U/L ALT (0-50) U/L Alkaline Phosphatase (38-126) U/L Troponin I (0.000-0.034) ng/mL NT-Pro-B Natriuret Pep 39760 (<300) pg/mL Serum Total Protein (6.3-8.2) g/dL Albumin (3.5-5.0) g/dL Urine Color (Yellow) Urine Appearance (Clear) Urine pH (4.6-8.0) Ur Specific [place] (1.005-1.030) Urine Protein (Negative) Urine Glucose (UA) (Negative) mg/dL Urine Ketones (Negative) Urine Blood (Negative) Urine Nitrite (Negative) Urine Bilirubin (Negative) Urine Urobilinogen (0.2) mg/dL Ur Leukocyte Esterase (Negative) U Hyaline Cast (Auto) (0-2) /LPF Urine Microscopic RBC (0-5) /HPF Urine Microscopic WBC (0-5) /HPF Ur Epithelial Cells (None Seen) /HPF Urine Bacteria (None Seen) /HPF Urine Culture Reflexed (NO) Influenza Type A Ag NEGATIVE (NEGATIVE) Influenza Type B Ag NEGATIVE (NEGATIVE) RSV (PCR) NEGATIVE (NEGATIVE) SARS-CoV-2 (PCR) NEGATIVE (NEGATIVE) 06/20/23 06/20/23 Range/Units 22:45 22:45 WBC (4.0-10.5) x10^3/uL RBC (4.1-5.6) x10^6/uL Hgb (12.5-18.0) g/dL Hct (42-50) % MCV (78-100) fL MCH (26-32) pg MCHC (32-36) g/dL RDW (11.5-14.0) % Plt Count (150-450) x10^3/uL MPV (7.5-11.0) fL Gran % (36.0-66.0) % Immature Gran % (Auto) (0.00-0.4) % Nucleat RBC Rel Count (0.00-0.1) % Eos # (Auto) (0-0.5) x10^3/uL Immature Gran # (Auto) (0.00-0.03) x10^3u/L Absolute Lymphs (auto) (1.0-4.6) x10^3/uL Absolute Monos (auto) (0.0-1.3) x10^3/uL Absolute Nucleated RBC (0.00-0.01) x10^3u/L Lymphocytes % (24.0-44.0) % Monocytes % (0.0-12.0) % Eosinophils % (0.00-5.0) % Basophils % (0.0-0.4) % Absolute Granulocytes (1.4-6.9) x10^3/uL Basophils # (0-0.4) x10^3/uL PT 13.0 H (9.4-12.5) SECONDS INR 1.21 (0.8-3.0) Sodium (137-145) mmol/L Potassium (3.5-5.1) mmol/L Chloride (98-107) mmol/L Carbon Dioxide (22-30) mmol/L Anion Gap (5-15) MEQ/L BUN (9-20) mg/dL Creatinine (0.66-1.25) mg/dL Estimated GFR ML/MIN Glucose (74-106) mg/dL Calcium (8.4-10.2) mg/dL Magnesium (1.6-2.3) mg/dL Total Bilirubin (0.2-1.3) mg/dL AST (17-59) U/L ALT (0-50) U/L Alkaline Phosphatase (38-126) U/L Troponin I 0.060 H* (0.000-0.034) ng/mL NT-Pro-B Natriuret Pep (<300) pg/mL Serum Total Protein (6.3-8.2) g/dL Albumin (3.5-5.0) g/dL Urine Color (Yellow) Urine Appearance (Clear) Urine pH (4.6-8.0) Ur Specific [place] (1.005-1.030) Urine Protein (Negative) Urine Glucose (UA) (Negative) mg/dL Urine Ketones (Negative) Urine Blood (Negative) Urine Nitrite (Negative) Urine Bilirubin (Negative) Urine Urobilinogen (0.2) mg/dL Ur Leukocyte Esterase (Negative) U Hyaline Cast (Auto) (0-2) /LPF Urine Microscopic RBC (0-5) /HPF Urine Microscopic WBC (0-5) /HPF Ur Epithelial Cells (None Seen) /HPF Urine Bacteria (None Seen) /HPF Urine Culture Reflexed (NO) Influenza Type A Ag (NEGATIVE) Influenza Type B Ag (NEGATIVE) RSV (PCR) (NEGATIVE) SARS-CoV-2 (PCR) (NEGATIVE) - Progress Progress: improved, re-examined Air Movement: fair Progress Note: 06/21/23 00:48 This patient's medical issue is 1 of high complexity. Level complexity in the work-up performed is based on review of the patient's past medical history, review the patient's medication list, review of patient drug allergy list, history of present illness and physical findings on examination. The work-up in this patient includes a chest x-ray, placement of intravenous line, CBC, CMP, BNP, troponin level, twelve-lead EKG. Patient also received metoprolol 5 mg intravenously, diltiazem 10 mg intravenously. I reviewed the results of the twelve-lead EKG and interpreted them. I will also reviewed and interpreted the results of the laboratory data. The patient has hypokalemia, hypertension, CHF with an elevated BNP, hyperglycemia, atrial fibrillation with RVR and elevated troponin level. I reviewed old records and his elevated troponin level of 0.06 is actually low when compared to those levels where he was admitted here in the past year and 3 months. Patient does not have any chest pain. The chest x-ray was interpreted by the radiologist which shows mild to moderate cardiomegaly with findings consistent with congestive heart failure along with possible superimposed infection/inflammatory etiology or process. We provided the patient with Rocephin 1 g intravenously, a single K rider 20 mEq intravenously and hydralazine 10 mg intravenously. We placed a call into our telehospitalist for admission. 06/21/23 00:54 The repeat, second twelve-lead EKG was performed which continues to show an atrial fibrillation rhythm but now the rate is controlled at 92 bpm. There is nonspecific ST changes in the lateral lead. There is no evidence of any acute ischemic changes on this twelve-lead EKG. 06/21/23 01:16 I did speak with our telehospitalist Dr. Guerra and I reviewed the patient history, physical findings, work-up that was performed and the results of those studies performed. We both agree that the only intervention that we performed in this patient is to put him back on his medication. However the patient expresses that he feels too weak to be home at this time on his own. He does state that he is feeling better than when he came in. We will place him in observation and have discharge planning evaluate him for home health/intermediate placement temporarily. Blood Culture(s) Obtained: Yes Antibiotics given: Yes Counseled pt/family regarding: lab results, diagnosis, rad results Medical Desision Making - Independent Historian Additional History obtained from: Child - External Record(s) Reviewed Records reviewed as a part of evaluation & management: Inpatient (Daughter) - Discussion of managment Care discussed with:: hospitalist (Dr. Guerra) Reviewed:: Test results, Need for additional workup - Diagnostic Testing Diagnostic test were ordered, analyzed, and reviewed by me: Yes Radiological Interpretation: Reviewed by me, Teleradiologist Report - Risk of complications The pt has a high risk of morbidity or mortality based on: Decision regarding hospitilization or escalation of hosp level of care - Departure Departure Disposition: Observation Clinical Impression: Atrial fibrillation with RVR, CHF (congestive heart failure), Infiltrate of both lungs present on imaging study, Elevated troponin, Hypertension, Hyperglycemia, Noncompliance with medication regimen Condition: Fair Critical Care Time: Yes Critical Care Time(excluding separately billable procedures): Critical 30-74 mins (55 minutes) Referrals: IRVING MORRIS MD [Primary Care Provider] - Follow up/PCP as directed Instructions: Heart Failure
[2023-06-20] MEDS ORDERED: LOPRESSOR INJECTION IV ONE ×2 (22:39→23:12)
[2023-06-20] MEDS ORDERED: Cardizem IV 50 MG/10 ML IV ONE ×2 (22:40→23:13)
[2023-06-20 22:53] LABS: Absolute Neutrophil Ct (ANC) 4.92 x10^3/uL (1.4-6.9); BASOPHIL % 2.1 % (0.0-0.4); Basophil (Absolute #) 0.17 x10^3/uL (0-0.4); Eosinophil (Absolute #) 0.08 x10^3/uL (0-0.5); Hematocrit 57.5 % (42-50); Hemoglobin 18.5 g/dL (12.5-18.0); IMMATURE GRAN # 0.03 x10^3u/L (0.00-0.03); IMMATURE GRAN % 0.4 % (0.00-0.4); Lymphocyte (Absolute #) 2.36 x10^3/uL (1.0-4.6); Mean Cell Volume 90.1 fL (78-100); Mean Corpuscular Hgb Concent. 32.2 g/dL (32-36); Mean Platelet Volume 11.6 fL (7.5-11.0); Monocyte (Absolute #) 0.57 x10^3/uL (0.0-1.3); Neutrophil % 60.5 % (36.0-66.0); Platelet Count 250 x10^3/uL (150-450); Red Blood Count 6.38 x10^6/uL (4.1-5.6); Red Cell Distribution Width 17.4 % (11.5-14.0); White Blood Count 8.1 x10^3/uL (4.0-10.5)
[2023-06-20] MEDS ORDERED: Lasix 40 MG/4 ML IV ONE (22:58)
[2023-06-20 23:08] LABS: INR 1.21 (0.8-3.0)
[2023-06-20] MEDS ORDERED: Lasix 40 MG/4 ML ONE (23:12)
--- NOTE | 2023-06-20 23:45 | XRAY ---
CLINICAL HISTORY:Shortness of air COMPARISON:An X-ray dated 09/17/2022. TECHNIQUE:An X-ray of the chest was performed in frontal projection. FINDINGS: Redemonstrated bilateral inhomogenous streaky opacities, with a slight interval decrease in severity in the left lung when compared with the previous Xray. Redemonstrated bilateral hilar and central vascular prominence is seen with no significant interval change on the right. Left hilar congestion appears slightly reduced than previous. Redemonstration of Mild to moderate cardiomegaly. Blunting of right costophrenic and cardiophrenic angles are seen, with increasing opacification on the present X-ray. The horizontal fissure also seems thickened on the present X-ray. Right lower lobe atelectasis is seen. Redemonstration of the well-defined rounded nodule in the left lower zone measuring about 4.9 mm. No significant mediastinal shift was seen. No fracture or bony pathology was seen. IMPRESSION: Redemonstrated mild to moderate cardiomegaly, bilateral inhomogenous streaky opacities, and hilar and central vascular prominence are seen with no significant interval change on the right, but a slight interval decrease on the left. Increasing opacification of right costophrenic and cardiophrenic angles along with horizontal fissure thickening on present X-ray. The possibility of Cardiogenic volume overload pathology along with superimposed infective/inflammatory etiology should be excluded further. Further cardiac evaluation is recommended. Redemonstration of a well-defined rounded nodule in left lower zone. Electronically Signed by: Coty Ennis MD. (06/20/2023 22:43:44 CAR FERRY CAPTAIN)
[2023-06-20 23:58] LABS: INFLUENZA A NEGATIVE (NEGATIVE); INFLUENZA B NEGATIVE (NEGATIVE); RESPIRATORY SYNCTIAL VIRUS NEGATIVE (NEGATIVE); SARS-CoV-2 Xpert Express NEGATIVE (NEGATIVE)
[2023-06-21 00:14] LABS: ALBUMIN 4.2 g/dL (3.5-5.0); ANION GAP 13.8 MEQ/L (5-15); BILIRUBIN,TOTAL 1.6 mg/dL (0.2-1.3); Calcium 9.6 mg/dL (8.4-10.2); Creatinine 1 1.34 mg/dL (0.66-1.25); EST GLOMERULAR FILTRATION RATE 57.6 ML/MIN; Total Protein 8.4 g/dL (6.3-8.2)
[2023-06-21 00:33] LABS: Appearance Clear (Clear); Bacteria None Seen /HPF (None Seen); Bilirubin Negative (Negative); Blood Small (Negative); Epithelial Cells None Seen /HPF (None Seen); Glucose, Urine >=1000 mg/dL (Negative); Ketones Negative (Negative); Leukocyte Esterase Negative (Negative); Nitrite Negative (Negative); Ph 5.5 (4.6-8.0); Protein,Urine Dip >=1000 (Negative); Specific Gravity >=1.030 (1.005-1.030); WBC 0-2 /HPF (0-5)
[2023-06-21 00:34] LABS: ADD URINE CULTURE? YES (NO)
[2023-06-21] MEDS ORDERED: ROCEPHIN 1 Gm-D5w 50 ml Bag** 1 G/50 ML IVPB IV STA (00:38)
[2023-06-21] MEDS ORDERED: POTASSIUM CHLORIDE 20 mEq IN WATER 100ML 20 MEQ/100 ML BAG IV ONE ×2 (00:39→01:29)
[2023-06-21] MEDS ORDERED: APRESOLINE 20 MG/ML INJ IV ONE ×2 (00:43→01:32)
[2023-06-21] MEDS ORDERED: Sodium Chloride 0.9% 1000 ML 1,000 ML ONE (00:50)
[2023-06-21] MEDS ORDERED: APRESOLINE 20 MG/ML INJ ONE (00:50)
[2023-06-21] MEDS ORDERED: ROCEPHIN 1 Gm-D5w 50 ml Bag** 1 G/50 ML IVPB IV ONE (00:50)
[2023-06-21] MEDS ORDERED: POTASSIUM CHLORIDE 20 mEq IN WATER 100ML 100 ML IV ONE (00:50)
[2023-06-21] MEDS ORDERED: Sodium Chloride 0.9% 1000 ML 1,000 ML IV SCH ×2 (01:00→02:07)
[2023-06-21] MEDS ORDERED: APRESOLINE 20 MG/ML INJ IV PRN (02:07)
[2023-06-21] MEDS ORDERED: TYLENOL 325 MG PO PRN (02:07)
[2023-06-21] MEDS ORDERED: HUMULIN R SQ PRN (02:07)
[2023-06-21] MEDS ORDERED: Zofran 4 MG/2 ML VIAL IV PRN (02:07)
[2023-06-21] MEDS ORDERED: DUONEB 0.5-3 MG/3 ml Neb IH PRN (03:38)
[2023-06-21] MEDS ORDERED: MILK OF MAGNESIA 30 ML PO PRN (03:38)
[2023-06-21] MEDS ORDERED: Klor Con PO ONE ×4 (03:47→06:21)
--- NOTE | 2023-06-21 03:55 | PCM.HP ---
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 He presented to the ED today for lower extremity edema and shortness of breath. He reported he had been off his medications for several days. Initial vitals temp 97.6 heart rate 108 blood [id number]. Labs significant for WBC 8.1, hemoglobin 18.5, platelets 250, sodium 141, potassium 3, creatinine 1.34, troponin 0.06, BNP 23,000, UA negative for nitrite or leukocyte esterase, and flu/RSV/COVID- negative. Chest x-ray vascular congestion continued angles and a left lower lobe 4.9 mm nodule. In the ER he was given 10 mg IV Cardizem and 40 IV Lasix 10 mg hydralazine 5 mg IV metoprolol 40 M EQ's of potassium, ceftriaxone. After these interventions were done patient appeared ready for discharge however patient expressed that he felt too weak to go home by himself at this time hence was placed in observation with ED for discharge planning. - Review of Systems Eyes: No Symptoms Ears, Nose, & Throat: No Symptoms Respiratory: Short Of Breath Cardiac: No Symptoms Abdominal/Gastrointestinal: Abdominal Pain, Nausea, Appetite Changes Genitourinary Symptoms: No Symptoms Neurological: No Symptoms Psychological: No Symptoms Endocrine: No Symptoms Hematologic/Lymphatic: No Symptoms Medications & Allergies Home Medications: Home Medication List Atorvastatin Calcium [Lipitor 20MG Tablet] 20 mg PO HS 08/12/16 [History Confirmed 06/20/23] Benazepril HCl 40 mg PO DAILY 08/12/16 [History Confirmed 06/20/23] Duloxetine HCl 30 mg [Cymbalta 30 MG Capsule] 60 mg PO DAILY 08/12/16 [History Confirmed 06/20/23] Empagliflozin [Jardiance] 25 mg PO DAILY 08/12/16 [History Confirmed 06/20/23] Metformin HCl 1000 mg [Glucophage 1000 MG] 500 mg PO BID 08/12/16 [History Confirmed 06/20/23] Tamsulosin HCl 0.4 mg [Flomax 0.4 MG] 0.4 mg PO HS 03/11/22 [History Confirmed 06/20/23] Apixaban [Eliquis 2.5 mg Tablet] 5 mg PO BID 08/31/22 [History Confirmed 06/20/23] Furosemide 20 mg [Lasix 20 mg] 80 mg PO BID 08/31/22 [History Confirmed 06/20/23] Magnesium Oxide 400 mg [Mag-Ox 400] 400 mg PO TID 08/31/22 [History Confirmed 06/20/23] Potassium Chloride 40 meq PO DAILY 08/31/22 [History Confirmed 06/20/23] Potassium Chloride Tab* [Klor Con] 20 meq PO EVENING MEAL 08/31/22 [History Confirmed 06/20/23] Clonidine HCl 0.1 mg [Clonidine 0.1 mg Tablet] 0.2 mg PO TID 06/20/23 [History Confirmed 06/20/23] Diltiazem HCl [Cartia Xt] 120 mg PO DAILY 06/20/23 [History Confirmed 06/20/23] Gabapentin 600 mg PO BID 06/20/23 [History Confirmed 06/20/23] Hydralazine HCl 50 mg PO BID 06/20/23 [History Confirmed 06/20/23] Metoprolol Tartrate 50 mg [Lopressor 50 MG] 50 mg PO BID 06/20/23 [History Confirmed 06/20/23] Allergies/Adverse Reactions: Allergies Allergy/AdvReac Type Severity Reaction Status Date / Time No Known Drug Allergies Allergy Verified 06/21/23 02:16 - Past Medical History Past Medical History: Yes Neurological History: TIA ENT History: Other Cardiac History: Arrhythmia, Other Respiratory History: No Pertinent History Endocrine Medical History: Diabetes Type II Musculoskelatal History: No Pertinent History GI Medical History: No Pertinent History History: No Pertinent History Pyscho-Social History: Anxiety, Depression Male Reproductive Disorders: No Pertinent History Comment: R SHOULDER INSTABILITY, A FIB - Past Surgical History Past Surgical History: Yes Neuro Surgical History: No Pertinent History Cardiac History: No Pertinent History Respiratory Surgery: No Pertinent History GI Surgical History: No Pertinent History Genitourinary Surgical Hx: No Pertinent History Musculskeletal Surgical Hx: Orthopedic Surgery Male Surgical History: No Pertinent History Other Surgical History: RIGHT shoulder - Social History Smoking Status: Current every day smoker How long have you smoked: 30 YEARS Exposure to second hand smoke: No Alcohol: Rarely Drug Use: none Significant Family History: no pertinent family hx - Physical Exam Vital Signs: Vital Signs - 24 hr Temp Pulse Resp BP BP Pulse Ox 06/21/23 02:36 102 H 28 H 99 06/21/23 02:18 97.2 F 100 H 18 176/102 97 06/21/23 01:50 97 H 14 168/106 97 06/21/23 01:41 82 8 L 177/118 100 06/21/23 01:30 99 06/21/23 01:30 89 12 167/114 99 06/21/23 01:22 90 23 148/107 100 06/21/23 01:15 81 20 155/123 98 06/21/23 00:51 162/115 06/21/23 00:42 96 H 15 174/110 06/21/23 00:31 90 18 186/128 98 06/21/23 00:20 87 24 172/129 99 06/21/23 00:11 95 H 25 H 174/110 98 06/21/23 00:02 77 20 173/135 99 06/20/23 23:50 87 24 156/125 98 06/20/23 23:41 86 21 158/108 99 06/20/23 23:30 76 19 159/111 06/20/23 23:21 100 H 25 H 175/128 06/20/23 23:11 99 H 24 176/135 100 06/20/23 23:01 123 H 27 H 167/138 06/20/23 22:51 100 H 32 H 171/129 100 06/20/23 22:41 108 H 22 154/123 99 06/20/23 22:40 25 H 97 06/20/23 22:11 97.6 F 108 H 20 179/125 99 General Appearance: no apparent distress Neurologic Exam: alert, oriented x 3 Eye Exam: PERRL/EOMI Ears, Nose, Throat Exam: normal ENT inspection Neck Exam: normal inspection Respiratory Exam: normal breath sounds Cardiovascular Exam: tachycardia Gastrointestinal/Abdomen Exam: soft, distention Extremity Exam: swelling Skin Exam: normal color Results - Labs Lab/Micro Results: Lab Results-Last 24 Hours 06/20/23 06/20/23 06/20/23 Range/Units 22:45 22:45 22:45 WBC (4.0-10.5) x10^3/uL RBC (4.1-5.6) x10^6/uL Hgb (12.5-18.0) g/dL Hct (42-50) % MCV (78-100) fL MCH (26-32) pg MCHC (32-36) g/dL RDW (11.5-14.0) % Plt Count (150-450) x10^3/uL MPV (7.5-11.0) fL Gran % (36.0-66.0) % Immature Gran % (Auto) (0.00-0.4) % Nucleat RBC Rel Count (0.00-0.1) % Eos # (Auto) (0-0.5) x10^3/uL Immature Gran # (Auto) (0.00-0.03) x10^3u/L Absolute Lymphs (auto) (1.0-4.6) x10^3/uL Absolute Monos (auto) (0.0-1.3) x10^3/uL Absolute Nucleated RBC (0.00-0.01) x10^3u/L Lymphocytes % (24.0-44.0) % Monocytes % (0.0-12.0) % Eosinophils % (0.00-5.0) % Basophils % (0.0-0.4) % Absolute Granulocytes (1.4-6.9) x10^3/uL Basophils # (0-0.4) x10^3/uL PT 13.0 H (9.4-12.5) SECONDS INR 1.21 (0.8-3.0) Sodium (137-145) mmol/L Potassium (3.5-5.1) mmol/L Chloride (98-107) mmol/L Carbon Dioxide (22-30) mmol/L Anion Gap (5-15) MEQ/L BUN (9-20) mg/dL Creatinine (0.66-1.25) mg/dL Estimated GFR ML/MIN Glucose (74-106) mg/dL Calcium (8.4-10.2) mg/dL Magnesium (1.6-2.3) mg/dL Total Bilirubin (0.2-1.3) mg/dL AST (17-59) U/L ALT (0-50) U/L Alkaline Phosphatase (38-126) U/L Troponin I 0.060 H* (0.000-0.034) ng/mL NT-Pro-B Natriuret Pep 58265 (<300) pg/mL Serum Total Protein (6.3-8.2) g/dL Albumin (3.5-5.0) g/dL Urine Color (Yellow) Urine Appearance (Clear) Urine pH (4.6-8.0) Ur Specific Hurst (1.005-1.030) Urine Protein (Negative) Urine Glucose (UA) (Negative) mg/dL Urine Ketones (Negative) Urine Blood (Negative) Urine Nitrite (Negative) Urine Bilirubin (Negative) Urine Urobilinogen (0.2) mg/dL Ur Leukocyte Esterase (Negative) U Hyaline Cast (Auto) (0-2) /LPF Urine Microscopic RBC (0-5) /HPF Urine Microscopic WBC (0-5) /HPF Ur Epithelial Cells (None Seen) /HPF Urine Bacteria (None Seen) /HPF Urine Culture Reflexed (NO) Influenza Type A Ag (NEGATIVE) Influenza Type B Ag (NEGATIVE) RSV (PCR) (NEGATIVE) SARS-CoV-2 (PCR) (NEGATIVE) 06/20/23 06/20/23 06/21/23 Range/Units 22:50 23:20 00:00 WBC 8.1 (4.0-10.5) x10^3/uL RBC 6.38 H (4.1-5.6) x10^6/uL Hgb 18.5 H (12.5-18.0) g/dL Hct 57.5 H (42-50) % MCV 90.1 (78-100) fL MCH 29.0 (26-32) pg MCHC 32.2 (32-36) g/dL RDW 17.4 H (11.5-14.0) % Plt Count 250 (150-450) x10^3/uL MPV 11.6 H (7.5-11.0) fL Gran % 60.5 (36.0-66.0) % Immature Gran % (Auto) 0.4 (0.00-0.4) % Nucleat RBC Rel Count 0.0 (0.00-0.1) % Eos # (Auto) 0.08 (0-0.5) x10^3/uL Immature Gran # (Auto) 0.03 (0.00-0.03) x10^3u/L Absolute Lymphs (auto) 2.36 (1.0-4.6) x10^3/uL Absolute Monos (auto) 0.57 (0.0-1.3) x10^3/uL Absolute Nucleated RBC 0.00 (0.00-0.01) x10^3u/L Lymphocytes % 29.0 (24.0-44.0) % Monocytes % 7.0 (0.0-12.0) % Eosinophils % 1.0 (0.00-5.0) % Basophils % 2.1 (0.0-0.4) % Absolute Granulocytes 4.92 (1.4-6.9) x10^3/uL Basophils # 0.17 (0-0.4) x10^3/uL PT (9.4-12.5) SECONDS INR (0.8-3.0) Sodium 141 (137-145) mmol/L Potassium 3.0 L* (3.5-5.1) mmol/L Chloride 100 (98-107) mmol/L Carbon Dioxide 30 (22-30) mmol/L Anion Gap 13.8 (5-15) MEQ/L BUN 20 (9-20) mg/dL Creatinine 1.34 H (0.66-1.25) mg/dL Estimated GFR 57.6 ML/MIN Glucose 200 H (74-106) mg/dL Calcium 9.6 (8.4-10.2) mg/dL Magnesium (1.6-2.3) mg/dL Total Bilirubin 1.60 H (0.2-1.3) mg/dL AST 46 (17-59) U/L ALT 31 (0-50) U/L Alkaline Phosphatase 283 H (38-126) U/L Troponin I (0.000-0.034) ng/mL NT-Pro-B Natriuret Pep (<300) pg/mL Serum Total Protein 8.4 H (6.3-8.2) g/dL Albumin 4.2 (3.5-5.0) g/dL Urine Color (Yellow) Urine Appearance (Clear) Urine pH (4.6-8.0) Ur Specific Hurst (1.005-1.030) Urine Protein (Negative) Urine Glucose (UA) (Negative) mg/dL Urine Ketones (Negative) Urine Blood (Negative) Urine Nitrite (Negative) Urine Bilirubin (Negative) Urine Urobilinogen (0.2) mg/dL Ur Leukocyte Esterase (Negative) U Hyaline Cast (Auto) (0-2) /LPF Urine Microscopic RBC (0-5) /HPF Urine Microscopic WBC (0-5) /HPF Ur Epithelial Cells (None Seen) /HPF Urine Bacteria (None Seen) /HPF Urine Culture Reflexed (NO) Influenza Type A Ag NEGATIVE (NEGATIVE) Influenza Type B Ag NEGATIVE (NEGATIVE) RSV (PCR) NEGATIVE (NEGATIVE) SARS-CoV-2 (PCR) NEGATIVE (NEGATIVE) 06/21/23 06/21/23 06/21/23 Range/Units 00:04 00:05 02:40 WBC (4.0-10.5) x10^3/uL RBC (4.1-5.6) x10^6/uL Hgb (12.5-18.0) g/dL Hct (42-50) % MCV (78-100) fL MCH (26-32) pg MCHC (32-36) g/dL RDW (11.5-14.0) % Plt Count (150-450) x10^3/uL MPV (7.5-11.0) fL Gran % (36.0-66.0) % Immature Gran % (Auto) (0.00-0.4) % Nucleat RBC Rel Count (0.00-0.1) % Eos # (Auto) (0-0.5) x10^3/uL Immature Gran # (Auto) (0.00-0.03) x10^3u/L Absolute Lymphs (auto) (1.0-4.6) x10^3/uL Absolute Monos (auto) (0.0-1.3) x10^3/uL Absolute Nucleated RBC (0.00-0.01) x10^3u/L Lymphocytes % (24.0-44.0) % Monocytes % (0.0-12.0) % Eosinophils % (0.00-5.0) % Basophils % (0.0-0.4) % Absolute Granulocytes (1.4-6.9) x10^3/uL Basophils # (0-0.4) x10^3/uL PT (9.4-12.5) SECONDS INR (0.8-3.0) Sodium (137-145) mmol/L Potassium (3.5-5.1) mmol/L Chloride (98-107) mmol/L Carbon Dioxide (22-30) mmol/L Anion Gap (5-15) MEQ/L BUN (9-20) mg/dL Creatinine (0.66-1.25) mg/dL Estimated GFR ML/MIN Glucose (74-106) mg/dL Calcium (8.4-10.2) mg/dL Magnesium 1.9 (1.6-2.3) mg/dL Total Bilirubin (0.2-1.3) mg/dL AST (17-59) U/L ALT (0-50) U/L Alkaline Phosphatase (38-126) U/L Troponin I 0.056 H* (0.000-0.034) ng/mL NT-Pro-B Natriuret Pep (<300) pg/mL Serum Total Protein (6.3-8.2) g/dL Albumin (3.5-5.0) g/dL Urine Color Dark Yellow (Yellow) Urine Appearance Clear (Clear) Urine pH 5.5 (4.6-8.0) Ur Specific Hurst >=1.030 A (1.005-1.030) Urine Protein >=1000 A (Negative) Urine Glucose (UA) >=1000 A (Negative) mg/dL Urine Ketones Negative (Negative) Urine Blood Small A (Negative) Urine Nitrite Negative (Negative) Urine Bilirubin Negative (Negative) Urine Urobilinogen 1.0 A (0.2) mg/dL Ur Leukocyte Esterase Negative (Negative) U Hyaline Cast (Auto) 6-10 A (0-2) /LPF Urine Microscopic RBC 3-5 (0-5) /HPF Urine Microscopic WBC 0-2 (0-5) /HPF Ur Epithelial Cells None Seen (None Seen) /HPF Urine Bacteria None Seen (None Seen) /HPF Urine Culture Reflexed YES (NO) Influenza Type A Ag (NEGATIVE) Influenza Type B Ag (NEGATIVE) RSV (PCR) (NEGATIVE) SARS-CoV-2 (PCR) (NEGATIVE) - Radiology Impressions Radiology Exams & Impressions: Radiology Procedures Category Date Time Status CHEST 1 VIEW (PORTABLE) Stat Exams 06/20/23 22:38 Completed - Other Procedures and Tests Respiratory Therapy 06/21/23 02:07 EKG REPEAT IN AM Oxygen Nasal Cannula 2 lpm 06/21/23 03:04 Smoking Cessation Education ONCE Assessment/Plan (1) Atrial fibrillation with RVR Current Visit: Yes Status: Acute Code(s): I48.91 - UNSPECIFIED ATRIAL FIBRIL LATION (2) CHF (congestive heart failure) Current Visit: Yes Status: Acute Qualifiers: Code(s): I50.9 - HEART FAILURE, UNSPECIFIED (3) Elevated troponin Current Visit: Yes Status: Acute Assessment & Plan: ASSESSMENT #Acute CHF exacerbation #A-fib with RVR #Hypokalemia #Medication noncompliance #Diabetes #Hypertension, poorly controlled #Elevated trop PLAN: -Repeat IV Lasix dose x1 -Resume home medication -PT eval -Trend troponin -Electrolyte repletion -Case management/discharge planning -Repeat labs in a.m. Entire encounter performed via telemedicine Code(s): R77.8 - OTHER SPECIFIED ABNORMALITIES OF PLASMA PROTEINS Telemedicine Encounter - Telemedicine Encounter Telemedicine Encounter: The entirety of this encounter was performed via Telemedicine"
[2023-06-21] MEDS ORDERED: Lasix 40 MG/4 ML ONE (03:57)
[2023-06-21 04:41] LABS: Absolute Neutrophil Ct (ANC) 5.03 x10^3/uL (1.4-6.9); BASOPHIL % 1.8 % (0.0-0.4); Basophil (Absolute #) 0.14 x10^3/uL (0-0.4); Eosinophil % 1.3 % (0.00-5.0); Hematocrit 53.1 % (42-50); Hemoglobin 17.3 g/dL (12.5-18.0); IMMATURE GRAN # 0.03 x10^3u/L (0.00-0.03); IMMATURE GRAN % 0.4 % (0.00-0.4); Lymphocyte (Absolute #) 1.76 x10^3/uL (1.0-4.6); Mean Cell Volume 87.5 fL (78-100); Mean Corpuscular Hemoglobin 28.5 pg (26-32); Mean Corpuscular Hgb Concent. 32.6 g/dL (32-36); Mean Platelet Volume 11.5 fL (7.5-11.0); Monocyte (Absolute #) 0.58 x10^3/uL (0.0-1.3); Monocytes % 7.6 % (0.0-12.0); Neutrophil % 65.9 % (36.0-66.0); Platelet Count 213 x10^3/uL (150-450); Red Blood Count 6.07 x10^6/uL (4.1-5.6); Red Cell Distribution Width 17.6 % (11.5-14.0); White Blood Count 7.6 x10^3/uL (4.0-10.5)
[2023-06-21] MEDS ORDERED: Lasix 40 MG/4 ML IV ONE (05:00)
[2023-06-21 05:36] LABS: ALBUMIN 3.5 g/dL (3.5-5.0); ALKALINE PHOSPHATASE 243 U/L (38-126); BLOOD UREA NITROGEN 19 mg/dL (9-20); CHLORIDE 103 mmol/L (98-107); Carbon Dioxide 25 mmol/L (22-30); EST GLOMERULAR FILTRATION RATE > 60.0 ML/MIN; Glucose 172 mg/dL (74-106); NT PRO BNPII 18400 pg/mL (<300); SGOT/AST 38 U/L (17-59); SGPT/ALT 26 U/L (0-50); SODIUM 140 mmol/L (137-145); Total Protein 7.3 g/dL (6.3-8.2)
--- NOTE | 2023-06-21 07:31 | PCM.NOTE ---
Date and Time: 06/21/23724 Subjective Assessment: Mr. Cornejo is a 63 year old with PMHX of TIA, AFIB (on cardizem/lopressor/Eliquis), HTN, DM 2, anxiety, depression, and non-compliance with medication regimen who presented to ER 06/21/23 with complaints of shortness of breath and BLE edema admitted for weakness, CHF exacerbation, pneumonia, AFIB RVR, and hypokalemia. Patient was provided IV lasix, hydralazine, metoprolol, cardizem , potassium, and ceftriaxone in the with noted improvement but stated he was too weak to return home. During hospitalization, HR in the 130's despite resumption of oral cardizem. Cardiology has been consulted for further recommendations. Patient endorses diffuse lower abdominal pain during interview. Upon examination, abdomen is noted firm with some induration to the lower quadrants, most likley secondary to anasarca, US currently pending. Otherwise patient endorses improvement overall, remains on RA with spo2 @ 100%. Denies fever, cough, sob, cp, BABB, dizziness, N/V/D. - Review of Systems Constitutional: No Symptoms Eyes: No Symptoms Ears, Nose, & Throat: No Symptoms Respiratory: Short Of Breath (with exertion on RA) Cardiac: Edema (BLE edema) Abdominal/Gastrointestinal: Abdominal Pain Genitourinary Symptoms: No Symptoms Musculoskeletal: No Symptoms Skin: No Symptoms Neurological: No Symptoms Psychological: No Symptoms Objective Exam General Appearance: no apparent distress Neurologic Exam: alert, oriented x 3, cooperative Skin Exam: pale Eye Exam: PERRL Neck Exam: normal inspection Respiratory Exam: normal breath sounds, lungs clear Cardiovascular Exam: tachycardia, irregular, other (irregularly irregular rhythm , S1 and S2 normal, No M/G. BLE L>R 3+/2+ pitting) Gastrointestinal/Abdomen Exam: soft, distention, other (mild firmness to blq with mild induration) OBJECTIVE DATA Vital Signs: Vital Signs - 24 hr Temp Pulse Resp BP BP Pulse Ox 06/21/23 05:47 110 H 14 131/98 98 06/21/23 05:09 116 H 24 98 06/21/23 05:08 98 06/21/23 02:36 102 H 28 H 99 06/21/23 02:18 97.2 F 100 H 18 176/102 97 06/21/23 01:50 97 H 14 168/106 97 06/21/23 01:41 82 8 L 177/118 100 06/21/23 01:30 99 06/21/23 01:30 89 12 167/114 99 06/21/23 01:22 90 23 148/107 100 06/21/23 01:15 81 20 155/123 98 06/21/23 00:51 162/115 06/21/23 00:42 96 H 15 174/110 06/21/23 00:31 90 18 186/128 98 06/21/23 00:20 87 24 172/129 99 06/21/23 00:11 95 H 25 H 174/110 98 06/21/23 00:02 77 20 173/135 99 06/20/23 23:50 87 24 156/125 98 06/20/23 23:41 86 21 158/108 99 06/20/23 23:30 76 19 159/111 06/20/23 23:21 100 H 25 H 175/128 06/20/23 23:11 99 H 24 176/135 100 06/20/23 23:01 123 H 27 H 167/138 06/20/23 22:51 100 H 32 H 171/129 100 06/20/23 22:41 108 H 22 154/123 99 06/20/23 22:40 25 H 97 06/20/23 22:11 97.6 F 108 H 20 179/125 99 Pain Assessment - Last Documented Pain Intensity 0 Intake and Output: Intake & Output 06/18/23 06/19/23 06/20/23 06/21/23 11:59 11:59 11:59 11:59 Intake Total 360 Output Total 2350 Weight 114.3 kg Lab Results: Lab Results-Last 24 Hours 06/20/23 06/20/23 06/20/23 Range/Units 22:45 22:45 22:45 WBC (4.0-10.5) x10^3/uL RBC (4.1-5.6) x10^6/uL Hgb (12.5-18.0) g/dL Hct (42-50) % MCV (78-100) fL MCH (26-32) pg MCHC (32-36) g/dL RDW (11.5-14.0) % Plt Count (150-450) x10^3/uL MPV (7.5-11.0) fL Gran % (36.0-66.0) % Immature Gran % (Auto) (0.00-0.4) % Nucleat RBC Rel Count (0.00-0.1) % Eos # (Auto) (0-0.5) x10^3/uL Immature Gran # (Auto) (0.00-0.03) x10^3u/L Absolute Lymphs (auto) (1.0-4.6) x10^3/uL Absolute Monos (auto) (0.0-1.3) x10^3/uL Absolute Nucleated RBC (0.00-0.01) x10^3u/L Lymphocytes % (24.0-44.0) % Monocytes % (0.0-12.0) % Eosinophils % (0.00-5.0) % Basophils % (0.0-0.4) % Absolute Granulocytes (1.4-6.9) x10^3/uL Basophils # (0-0.4) x10^3/uL PT 13.0 H (9.4-12.5) SECONDS INR 1.21 (0.8-3.0) Sodium (137-145) mmol/L Potassium (3.5-5.1) mmol/L Chloride (98-107) mmol/L Carbon Dioxide (22-30) mmol/L Anion Gap (5-15) MEQ/L BUN (9-20) mg/dL Creatinine (0.66-1.25) mg/dL Estimated GFR ML/MIN Glucose (74-106) mg/dL Calcium (8.4-10.2) mg/dL Magnesium (1.6-2.3) mg/dL Total Bilirubin (0.2-1.3) mg/dL AST (17-59) U/L ALT (0-50) U/L Alkaline Phosphatase (38-126) U/L Troponin I 0.060 H* (0.000-0.034) ng/mL NT-Pro-B Natriuret Pep 75256 (<300) pg/mL Serum Total Protein (6.3-8.2) g/dL Albumin (3.5-5.0) g/dL Urine Color (Yellow) Urine Appearance (Clear) Urine pH (4.6-8.0) Ur Specific [place] (1.005-1.030) Urine Protein (Negative) Urine Glucose (UA) (Negative) mg/dL Urine Ketones (Negative) Urine Blood (Negative) Urine Nitrite (Negative) Urine Bilirubin (Negative) Urine Urobilinogen (0.2) mg/dL Ur Leukocyte Esterase (Negative) U Hyaline Cast (Auto) (0-2) /LPF Urine Microscopic RBC (0-5) /HPF Urine Microscopic WBC (0-5) /HPF Ur Epithelial Cells (None Seen) /HPF Urine Bacteria (None Seen) /HPF Urine Culture Reflexed (NO) Influenza Type A Ag (NEGATIVE) Influenza Type B Ag (NEGATIVE) RSV (PCR) (NEGATIVE) SARS-CoV-2 (PCR) (NEGATIVE) 06/20/23 06/20/23 06/21/23 Range/Units 22:50 23:20 00:00 WBC 8.1 (4.0-10.5) x10^3/uL RBC 6.38 H (4.1-5.6) x10^6/uL Hgb 18.5 H (12.5-18.0) g/dL Hct 57.5 H (42-50) % MCV 90.1 (78-100) fL MCH 29.0 (26-32) pg MCHC 32.2 (32-36) g/dL RDW 17.4 H (11.5-14.0) % Plt Count 250 (150-450) x10^3/uL MPV 11.6 H (7.5-11.0) fL Gran % 60.5 (36.0-66.0) % Immature Gran % (Auto) 0.4 (0.00-0.4) % Nucleat RBC Rel Count 0.0 (0.00-0.1) % Eos # (Auto) 0.08 (0-0.5) x10^3/uL Immature Gran # (Auto) 0.03 (0.00-0.03) x10^3u/L Absolute Lymphs (auto) 2.36 (1.0-4.6) x10^3/uL Absolute Monos (auto) 0.57 (0.0-1.3) x10^3/uL Absolute Nucleated RBC 0.00 (0.00-0.01) x10^3u/L Lymphocytes % 29.0 (24.0-44.0) % Monocytes % 7.0 (0.0-12.0) % Eosinophils % 1.0 (0.00-5.0) % Basophils % 2.1 (0.0-0.4) % Absolute Granulocytes 4.92 (1.4-6.9) x10^3/uL Basophils # 0.17 (0-0.4) x10^3/uL PT (9.4-12.5) SECONDS INR (0.8-3.0) Sodium 141 (137-145) mmol/L Potassium 3.0 L* (3.5-5.1) mmol/L Chloride 100 (98-107) mmol/L Carbon Dioxide 30 (22-30) mmol/L Anion Gap 13.8 (5-15) MEQ/L BUN 20 (9-20) mg/dL Creatinine 1.34 H (0.66-1.25) mg/dL Estimated GFR 57.6 ML/MIN Glucose 200 H (74-106) mg/dL Calcium 9.6 (8.4-10.2) mg/dL Magnesium (1.6-2.3) mg/dL Total Bilirubin 1.60 H (0.2-1.3) mg/dL AST 46 (17-59) U/L ALT 31 (0-50) U/L Alkaline Phosphatase 283 H (38-126) U/L Troponin I (0.000-0.034) ng/mL NT-Pro-B Natriuret Pep (<300) pg/mL Serum Total Protein 8.4 H (6.3-8.2) g/dL Albumin 4.2 (3.5-5.0) g/dL Urine Color (Yellow) Urine Appearance (Clear) Urine pH (4.6-8.0) Ur Specific [place] (1.005-1.030) Urine Protein (Negative) Urine Glucose (UA) (Negative) mg/dL Urine Ketones (Negative) Urine Blood (Negative) Urine Nitrite (Negative) Urine Bilirubin (Negative) Urine Urobilinogen (0.2) mg/dL Ur Leukocyte Esterase (Negative) U Hyaline Cast (Auto) (0-2) /LPF Urine Microscopic RBC (0-5) /HPF Urine Microscopic WBC (0-5) /HPF Ur Epithelial Cells (None Seen) /HPF Urine Bacteria (None Seen) /HPF Urine Culture Reflexed (NO) Influenza Type A Ag NEGATIVE (NEGATIVE) Influenza Type B Ag NEGATIVE (NEGATIVE) RSV (PCR) NEGATIVE (NEGATIVE) SARS-CoV-2 (PCR) NEGATIVE (NEGATIVE) 06/21/23 06/21/23 06/21/23 Range/Units 00:04 00:05 02:40 WBC (4.0-10.5) x10^3/uL RBC (4.1-5.6) x10^6/uL Hgb (12.5-18.0) g/dL Hct (42-50) % MCV (78-100) fL MCH (26-32) pg MCHC (32-36) g/dL RDW (11.5-14.0) % Plt Count (150-450) x10^3/uL MPV (7.5-11.0) fL Gran % (36.0-66.0) % Immature Gran % (Auto) (0.00-0.4) % Nucleat RBC Rel Count (0.00-0.1) % Eos # (Auto) (0-0.5) x10^3/uL Immature Gran # (Auto) (0.00-0.03) x10^3u/L Absolute Lymphs (auto) (1.0-4.6) x10^3/uL Absolute Monos (auto) (0.0-1.3) x10^3/uL Absolute Nucleated RBC (0.00-0.01) x10^3u/L Lymphocytes % (24.0-44.0) % Monocytes % (0.0-12.0) % Eosinophils % (0.00-5.0) % Basophils % (0.0-0.4) % Absolute Granulocytes (1.4-6.9) x10^3/uL Basophils # (0-0.4) x10^3/uL PT (9.4-12.5) SECONDS INR (0.8-3.0) Sodium (137-145) mmol/L Potassium (3.5-5.1) mmol/L Chloride (98-107) mmol/L Carbon Dioxide (22-30) mmol/L Anion Gap (5-15) MEQ/L BUN (9-20) mg/dL Creatinine (0.66-1.25) mg/dL Estimated GFR ML/MIN Glucose (74-106) mg/dL Calcium (8.4-10.2) mg/dL Magnesium 1.9 (1.6-2.3) mg/dL Total Bilirubin (0.2-1.3) mg/dL AST (17-59) U/L ALT (0-50) U/L Alkaline Phosphatase (38-126) U/L Troponin I 0.056 H* (0.000-0.034) ng/mL NT-Pro-B Natriuret Pep (<300) pg/mL Serum Total Protein (6.3-8.2) g/dL Albumin (3.5-5.0) g/dL Urine Color Dark Yellow (Yellow) Urine Appearance Clear (Clear) Urine pH 5.5 (4.6-8.0) Ur Specific [place] >=1.030 A (1.005-1.030) Urine Protein >=1000 A (Negative) Urine Glucose (UA) >=1000 A (Negative) mg/dL Urine Ketones Negative (Negative) Urine Blood Small A (Negative) Urine Nitrite Negative (Negative) Urine Bilirubin Negative (Negative) Urine Urobilinogen 1.0 A (0.2) mg/dL Ur Leukocyte Esterase Negative (Negative) U Hyaline Cast (Auto) 6-10 A (0-2) /LPF Urine Microscopic RBC 3-5 (0-5) /HPF Urine Microscopic WBC 0-2 (0-5) /HPF Ur Epithelial Cells None Seen (None Seen) /HPF Urine Bacteria None Seen (None Seen) /HPF Urine Culture Reflexed YES (NO) Influenza Type A Ag (NEGATIVE) Influenza Type B Ag (NEGATIVE) RSV (PCR) (NEGATIVE) SARS-CoV-2 (PCR) (NEGATIVE) 06/21/23 06/21/23 06/21/23 Range/Units 04:37 04:37 04:37 WBC 7.6 (4.0-10.5) x10^3/uL RBC 6.07 H (4.1-5.6) x10^6/uL Hgb 17.3 (12.5-18.0) g/dL Hct 53.1 H (42-50) % MCV 87.5 (78-100) fL MCH 28.5 (26-32) pg MCHC 32.6 (32-36) g/dL RDW 17.6 H (11.5-14.0) % Plt Count 213 (150-450) x10^3/uL MPV 11.5 H (7.5-11.0) fL Gran % 65.9 (36.0-66.0) % Immature Gran % (Auto) 0.4 (0.00-0.4) % Nucleat RBC Rel Count 0.0 (0.00-0.1) % Eos # (Auto) 0.10 (0-0.5) x10^3/uL Immature Gran # (Auto) 0.03 (0.00-0.03) x10^3u/L Absolute Lymphs (auto) 1.76 (1.0-4.6) x10^3/uL Absolute Monos (auto) 0.58 (0.0-1.3) x10^3/uL Absolute Nucleated RBC 0.00 (0.00-0.01) x10^3u/L Lymphocytes % 23.0 L (24.0-44.0) % Monocytes % 7.6 (0.0-12.0) % Eosinophils % 1.3 (0.00-5.0) % Basophils % 1.8 (0.0-0.4) % Absolute Granulocytes 5.03 (1.4-6.9) x10^3/uL Basophils # 0.14 (0-0.4) x10^3/uL PT (9.4-12.5) SECONDS INR (0.8-3.0) Sodium 140 (137-145) mmol/L Potassium 3.0 L* (3.5-5.1) mmol/L Chloride 103 (98-107) mmol/L Carbon Dioxide 25 (22-30) mmol/L Anion Gap 14.0 (5-15) MEQ/L BUN 19 (9-20) mg/dL Creatinine 1.10 (0.66-1.25) mg/dL Estimated GFR > 60.0 ML/MIN Glucose 172 H (74-106) mg/dL Calcium 9.0 (8.4-10.2) mg/dL Magnesium (1.6-2.3) mg/dL Total Bilirubin 1.60 H (0.2-1.3) mg/dL AST 38 (17-59) U/L ALT 26 (0-50) U/L Alkaline Phosphatase 243 H (38-126) U/L Troponin I 0.059 H* (0.000-0.034) ng/mL NT-Pro-B Natriuret Pep 27830 (<300) pg/mL Serum Total Protein 7.3 (6.3-8.2) g/dL Albumin 3.5 (3.5-5.0) g/dL Urine Color (Yellow) Urine Appearance (Clear) Urine pH (4.6-8.0) Ur Specific [place] (1.005-1.030) Urine Protein (Negative) Urine Glucose (UA) (Negative) mg/dL Urine Ketones (Negative) Urine Blood (Negative) Urine Nitrite (Negative) Urine Bilirubin (Negative) Urine Urobilinogen (0.2) mg/dL Ur Leukocyte Esterase (Negative) U Hyaline Cast (Auto) (0-2) /LPF Urine Microscopic RBC (0-5) /HPF Urine Microscopic WBC (0-5) /HPF Ur Epithelial Cells (None Seen) /HPF Urine Bacteria (None Seen) /HPF Urine Culture Reflexed (NO) Influenza Type A Ag (NEGATIVE) Influenza Type B Ag (NEGATIVE) RSV (PCR) (NEGATIVE) SARS-CoV-2 (PCR) (NEGATIVE) 06/21/23 Range/Units 04:37 WBC (4.0-10.5) x10^3/uL RBC (4.1-5.6) x10^6/uL Hgb (12.5-18.0) g/dL Hct (42-50) % MCV (78-100) fL MCH (26-32) pg MCHC (32-36) g/dL RDW (11.5-14.0) % Plt Count (150-450) x10^3/uL MPV (7.5-11.0) fL Gran % (36.0-66.0) % Immature Gran % (Auto) (0.00-0.4) % Nucleat RBC Rel Count (0.00-0.1) % Eos # (Auto) (0-0.5) x10^3/uL Immature Gran # (Auto) (0.00-0.03) x10^3u/L Absolute Lymphs (auto) (1.0-4.6) x10^3/uL Absolute Monos (auto) (0.0-1.3) x10^3/uL Absolute Nucleated RBC (0.00-0.01) x10^3u/L Lymphocytes % (24.0-44.0) % Monocytes % (0.0-12.0) % Eosinophils % (0.00-5.0) % Basophils % (0.0-0.4) % Absolute Granulocytes (1.4-6.9) x10^3/uL Basophils # (0-0.4) x10^3/uL PT (9.4-12.5) SECONDS INR (0.8-3.0) Sodium (137-145) mmol/L Potassium (3.5-5.1) mmol/L Chloride (98-107) mmol/L Carbon Dioxide (22-30) mmol/L Anion Gap (5-15) MEQ/L BUN (9-20) mg/dL Creatinine (0.66-1.25) mg/dL Estimated GFR ML/MIN Glucose (74-106) mg/dL Calcium (8.4-10.2) mg/dL Magnesium 1.6 (1.6-2.3) mg/dL Total Bilirubin (0.2-1.3) mg/dL AST (17-59) U/L ALT (0-50) U/L Alkaline Phosphatase (38-126) U/L Troponin I (0.000-0.034) ng/mL NT-Pro-B Natriuret Pep (<300) pg/mL Serum Total Protein (6.3-8.2) g/dL Albumin (3.5-5.0) g/dL Urine Color (Yellow) Urine Appearance (Clear) Urine pH (4.6-8.0) Ur Specific [place] (1.005-1.030) Urine Protein (Negative) Urine Glucose (UA) (Negative) mg/dL Urine Ketones (Negative) Urine Blood (Negative) Urine Nitrite (Negative) Urine Bilirubin (Negative) Urine Urobilinogen (0.2) mg/dL Ur Leukocyte Esterase (Negative) U Hyaline Cast (Auto) (0-2) /LPF Urine Microscopic RBC (0-5) /HPF Urine Microscopic WBC (0-5) /HPF Ur Epithelial Cells (None Seen) /HPF Urine Bacteria (None Seen) /HPF Urine Culture Reflexed (NO) Influenza Type A Ag (NEGATIVE) Influenza Type B Ag (NEGATIVE) RSV (PCR) (NEGATIVE) SARS-CoV-2 (PCR) (NEGATIVE) Radiology Exams: Radiology Procedures Category Date Time Status CHEST 1 VIEW (PORTABLE) Stat Exams 06/20/23 22:38 Completed Assessment/Plan (1) Atrial fibrillation with RVR Current Visit: Yes Status: Acute Assessment & Plan: Atrial Fibrillation -Type: long-standing persistent -Monitor on Telemetry -Cardiology consulted, appreciate recs -Rate controlled with: Cardizem 120mg po, which is his home medication, patient has been non-compliant with home meds -rate control to target goal HR <85 bpm at rest if symptomatic, goal HR <110 bpm if asymptomatic -[id number]: 3 -On Eliquis for Anticoagulation, will continue -optimize electrolytes for goal of K at 4 and magnesium at 2 Code(s): I48.91 - UNSPECIFIED ATRIAL FIBRILLATION (2) CHF exacerbation Current Visit: Yes Status: Acute Assessment & Plan: HFpEF vs HFrEF -Most recent ECHO reviewed from 03/31 EF at 53% -NYHA Class III -Baseline Weight: Unknown -Home Medications: -proBNP 10127 CXR suggestive of cardiogenic overload with superimposed infection bilaterally, physical exam consistent with CHF exacerbation/ patient non-compliant with home medications -Dr. Poe follows patient, consult ordered -Will start IV Lasix 40mg BID -Monitor daily weight and document Strict I/Os -Fluid restriction <1800ml/day and Na Restriction <2g/day - Consider repeat ECHO -Daily BMP to monitor renal function Code(s): I50.9 - HEART FAILURE, UNSPECIFIED (3) Elevated troponin Current Visit: Yes Status: Acute Assessment & Plan: -EKG reviewed noting AFIB, nonspecific ST changes in the lateral lead, no evidence of acute ischemic changes -Continue Tele Code(s): R77.8 - OTHER SPECIFIED ABNORMALITIES OF PLASMA PROTEINS (4) Infiltrate of both lungs present on imaging study Current Visit: Yes Status: Acute Assessment & Plan: -CXR reviewed showing bilateral patchy opacities, will continue Rocephin/azithromycin, convert to po on discharge Code(s): R91.8 - OTHER NONSPECIFIC ABNORMAL FINDING OF LUNG FIELD (5) Hyperglycemia Current Visit: Yes Status: Acute Assessment & Plan: -Stablizing -No recent A1c, will order -SSI moderate Code(s): R73.9 - HYPERGLYCEMIA, UNSPECIFIED (6) Noncompliance with medication regimen Current Visit: Yes Status: Acute Assessment & Plan: -noted Code(s): Z91.148 - PATIENT'S OTHER NONCOMPL WITH MEDS REGIMEN FOR OTHER REASON (7) Hypertension Current Visit: Yes Status: Chronic Qualifiers: Assessment & Plan: -Patient still mildly hypertensive, will continue home meds with prn hydralazine, continue to monitor Code(s): I10 - ESSENTIAL (PRIMARY) HYPERTENSION (8) DM (diabetes mellitus) Current Visit: No Status: Acute Qualifiers: Diabetes mellitus type: type 2 Diabetes mellitus usp insulin use: unspecified usp insulin use status Assessment & Plan: -see hyperglycemia Code(s): E11.9 - TYPE 2 DIABETES MELLITUS WITHOUT COMPLICATIONS (9) Elevated brain natriuretic peptide (BNP) level Current Visit: No Status: Acute Assessment & Plan: -see CHF exacerbation Code(s): R79.89 - OTHER SPECIFIED ABNORMAL FINDINGS OF BLOOD CHEMISTRY (10) Anasarca Current Visit: Yes Status: Chronic Assessment & Plan: -US abdomen results pending Code(s): R60.1 - GENERALIZED EDEMA
[2023-06-21] MEDS ORDERED: Glucophage 500 MG PO SCH (08:00)
[2023-06-21] MEDS: Cardizem CD PO SCH (08:13)
[2023-06-21] MEDS: Cymbalta 30 MG Capsule PO SCH (08:13)
[2023-06-21] MEDS: ELIQUIS 2.5 MG TABLET PO SCH ×2 (08:13→22:34)
[2023-06-21] MEDS: Klor Con PO SCH ×2 (08:14→17:15)
[2023-06-21] MEDS: MAG-OX 400 PO SCH ×3 (08:14→22:35)
[2023-06-21] MEDS: Lasix 40 MG/4 ML IV SCH ×2 (08:14→17:15)
[2023-06-21] MEDS: Lopressor 50 MG PO SCH ×2 (08:14→22:34)
[2023-06-21] MEDS: Apresoline 25 MG TABLET PO SCH ×2 (08:14→22:35)
[2023-06-21] MEDS: NEURONTIN PO SCH ×2 (08:14→22:35)
[2023-06-21] MEDS: CLONIDINE 0.1 MG TABLET PO SCH ×3 (08:14→22:34)
[2023-06-21] MEDS: JARDIANCE PO SCH (08:15)
[2023-06-21] MEDS ORDERED: Lotensin PO SCH (10:00)
[2023-06-21] MEDS ORDERED: DILTIAZEM HCL 240 MG PO SCH (10:00)
[2023-06-21] MEDS ORDERED: LASIX 20 MG PO SCH (10:00)
[2023-06-21] MEDS ORDERED: NON-FORMULARY ITEM (Metformin Hcl 1000 Mg [Glucophage 1000 Mg] 1,000 MG Tablet) PO SCH (10:00)
[2023-06-21] MEDS ORDERED: NON-FORMULARY ITEM (Benazepril Hcl [Benazepril Hcl] 40 MG Tablet) PO SCH (10:00)
[2023-06-21] MEDS ORDERED: ELIQUIS 2.5 MG TABLET PO SCH (10:00)
[2023-06-21] MEDS ORDERED: NON-FORMULARY ITEM (Gabapentin [Gabapentin] 600 MG Tablet) PO SCH (10:00)
[2023-06-21] MEDS ORDERED: NON-FORMULARY ITEM (Hydralazine Hcl [Hydralazine Hcl] 50 MG Tablet) PO SCH (10:00)
[2023-06-21] MEDS ORDERED: Lopressor 50 MG PO SCH (10:00)
[2023-06-21] MEDS: Zithromax 500 MG/ 250 ML NaCl Premix 500 MG/250 ML IVPB IV SCH (11:27)
[2023-06-21] MEDS: HUMALOG SQ PRN ×2 (12:12→21:33)
--- NOTE | 2023-06-21 19:23 | XRAY ---
Indication: Anasarca. Targeted ultrasound of all 4 abdominal quadrants is negative for free fluid/ascites.
[2023-06-21] MEDS ORDERED: NON-FORMULARY ITEM (Atorvastatin Calcium 20 MG Tab) PO SCH (22:00)
[2023-06-21] MEDS: ZOCOR 20MG PO SCH (22:34)
[2023-06-21] MEDS: ROCEPHIN 1 Gm-D5w 50 ml Bag** 1 G/50 ML IVPB IV SCH (22:35)
[2023-06-21] MEDS: Flomax 0.4 MG PO SCH (22:35)
[2023-06-22 04:52] LABS: Basophil (Absolute #) 0.12 x10^3/uL (0-0.4); Eosinophil % 2.3 % (0.00-5.0); Eosinophil (Absolute #) 0.14 x10^3/uL (0-0.5); Hematocrit 49.6 % (42-50); Hemoglobin 15.9 g/dL (12.5-18.0); IMMATURE GRAN # 0.01 x10^3u/L (0.00-0.03); IMMATURE GRAN % 0.2 % (0.00-0.4); Lymphocyte (Absolute #) 1.69 x10^3/uL (1.0-4.6); Lymphocytes % 28.1 % (24.0-44.0); Mean Corpuscular Hemoglobin 28.5 pg (26-32); Mean Corpuscular Hgb Concent. 32.1 g/dL (32-36); Mean Platelet Volume 11.5 fL (7.5-11.0); Monocyte (Absolute #) 0.46 x10^3/uL (0.0-1.3); Monocytes % 7.6 % (0.0-12.0); Neutrophil % 59.8 % (36.0-66.0); Platelet Count 204 x10^3/uL (150-450); Red Blood Count 5.57 x10^6/uL (4.1-5.6); Red Cell Distribution Width 17.4 % (11.5-14.0)
[2023-06-22 05:06] LABS: ALBUMIN 3.2 g/dL (3.5-5.0); ALKALINE PHOSPHATASE 203 U/L (38-126); ANION GAP 10.2 MEQ/L (5-15); BLOOD UREA NITROGEN 20 mg/dL (9-20); CHLORIDE 103 mmol/L (98-107); Calcium 8.3 mg/dL (8.4-10.2); Carbon Dioxide 29 mmol/L (22-30); Creatinine 1 1.12 mg/dL (0.66-1.25); EST GLOMERULAR FILTRATION RATE > 60.0 ML/MIN; Glucose 75 mg/dL (74-106); MAGNESIUM 1.7 mg/dL (1.6-2.3); Potassium 3.4 mmol/L (3.5-5.1); SGOT/AST 39 U/L (17-59); SGPT/ALT 25 U/L (0-50); SODIUM 139 mmol/L (137-145); Total Protein 6.5 g/dL (6.3-8.2)
--- NOTE | 2023-06-22 06:26 | PCM.NOTE ---
Date and Time: 06/22/23621 Subjective Assessment: Mr. Cornejo is a 63 year old with PMHX of TIA, AFIB (on cardizem/lopressor/Eliquis), HTN, DM 2, anxiety, depression, and non-compliance with medication regimen who presented to ER 06/21/23 with complaints of shortness of breath and BLE edema admitted for weakness, CHF exacerbation, pneumonia, AFIB RVR, and hypokalemia. Patient was provided IV lasix, hydralazine, metoprolol, cardizem , potassium, and ceftriaxone in the with noted improvement but stated he was too weak to return home. During hospitalization, HR in the 130's despite resumption of oral cardizem. Cardiology has been consulted for further recommendations. Patient endorses diffuse lower abdominal pain during interview. Upon examination, abdomen is noted firm with some induration to the lower quadrants, most likley secondary to anasarca, US unremarkable. CT showing cardiomegaly, right effusion with atelectasis, diffuse anasarca consistent with CHF vs fluid overload, fatty hepatomegaly, and other chronic findings. Patient endorses improvement of symptoms, still with weakness, no longer with abdominal pain, working with PT. Patient also noted with hematuria in f/c bag, is on eliquis, will d/c and collect urinalysis for evaluation. Denies fever, cough, sob, cp, BABB, dizziness, N/V/D. - Review of Systems Constitutional: Weakness Eyes: No Symptoms Ears, Nose, & Throat: No Symptoms Respiratory: No Symptoms Cardiac: Edema (BLE/ abdomen) Abdominal/Gastrointestinal: No Symptoms Genitourinary Symptoms: Hematuria Musculoskeletal: No Symptoms Skin: No Symptoms Neurological: No Symptoms Psychological: No Symptoms Endocrine: No Symptoms Hematologic/Lymphatic: No Symptoms Immunological/Allergic: No Symptoms Objective Exam General Appearance: no apparent distress Neurologic Exam: alert, oriented x 3, cooperative Skin Exam: pale Eye Exam: PERRL Ears, Nose, Throat Exam: normal ENT inspection Neck Exam: normal inspection Respiratory Exam: normal breath sounds, lungs clear Cardiovascular Exam: tachycardia Gastrointestinal/Abdomen Exam: soft, normal bowel sounds Extremity Exam: swelling (BLE edema/abdominal) Back Exam: normal inspection Male Genitalia Exam: deferred Rectal Exam: deferred OBJECTIVE DATA Vital Signs: Vital Signs - 24 hr Temp Pulse Resp BP Pulse Ox 06/22/23 04:00 96.4 F 77 18 105/52 95 06/21/23 23:52 96.8 F 70 20 124/87 95 06/21/23 19:35 87 20 92 L 06/21/23 19:13 96.9 F 89 24 120/92 96 06/21/23 15:38 97.8 F 80 20 127/86 95 06/21/23 11:57 98.7 F 88 22 139/102 94 L 06/21/23 09:38 95 06/21/23 08:00 97.2 F 110 H 131/98 100 06/21/23 07:26 100 Pain Assessment - Last Documented Pain Intensity 0 Intake and Output: Intake & Output 06/19/23 06/20/23 06/21/23 06/22/23 11:59 11:59 11:59 11:59 Intake Total 720 1606 Output Total 2900 3535 Balance -2180 -1929 Weight 114.3 kg 114.3 kg Lab Results: Lab Results-Last 24 Hours 06/21/23 06/21/23 06/21/23 Range/Units 04:30 04:30 07:26 WBC (4.0-10.5) x10^3/uL RBC (4.1-5.6) x10^6/uL Hgb (12.5-18.0) g/dL Hct (42-50) % MCV (78-100) fL MCH (26-32) pg MCHC (32-36) g/dL RDW (11.5-14.0) % Plt Count (150-450) x10^3/uL MPV (7.5-11.0) fL Gran % (36.0-66.0) % Immature Gran % (Auto) (0.00-0.4) % Nucleat RBC Rel Count (0.00-0.1) % Eos # (Auto) (0-0.5) x10^3/uL Immature Gran # (Auto) (0.00-0.03) x10^3u/L Absolute Lymphs (auto) (1.0-4.6) x10^3/uL Absolute Monos (auto) (0.0-1.3) x10^3/uL Absolute Nucleated RBC (0.00-0.01) x10^3u/L Lymphocytes % (24.0-44.0) % Monocytes % (0.0-12.0) % Eosinophils % (0.00-5.0) % Basophils % (0.0-0.4) % Absolute Granulocytes (1.4-6.9) x10^3/uL Basophils # (0-0.4) x10^3/uL Sodium (137-145) mmol/L Potassium (3.5-5.1) mmol/L Chloride (98-107) mmol/L Carbon Dioxide (22-30) mmol/L Anion Gap (5-15) MEQ/L BUN (9-20) mg/dL Creatinine (0.66-1.25) mg/dL Estimated GFR ML/MIN Glucose (74-106) mg/dL POC Glucometer 146 H (74 to 106) mg/dL Hemoglobin A1c 8.88 H (4.5-6.0) % Calcium (8.4-10.2) mg/dL Magnesium 1.6 (1.6-2.3) mg/dL Total Bilirubin (0.2-1.3) mg/dL AST (17-59) U/L ALT (0-50) U/L Alkaline Phosphatase (38-126) U/L Ammonia (9-30) umol/L Serum Total Protein (6.3-8.2) g/dL Albumin (3.5-5.0) g/dL 06/21/23 06/21/23 06/21/23 Range/Units 08:23 11:50 12:05 WBC (4.0-10.5) x10^3/uL RBC (4.1-5.6) x10^6/uL Hgb (12.5-18.0) g/dL Hct (42-50) % MCV (78-100) fL MCH (26-32) pg MCHC (32-36) g/dL RDW (11.5-14.0) % Plt Count (150-450) x10^3/uL MPV (7.5-11.0) fL Gran % (36.0-66.0) % Immature Gran % (Auto) (0.00-0.4) % Nucleat RBC Rel Count (0.00-0.1) % Eos # (Auto) (0-0.5) x10^3/uL Immature Gran # (Auto) (0.00-0.03) x10^3u/L Absolute Lymphs (auto) (1.0-4.6) x10^3/uL Absolute Monos (auto) (0.0-1.3) x10^3/uL Absolute Nucleated RBC (0.00-0.01) x10^3u/L Lymphocytes % (24.0-44.0) % Monocytes % (0.0-12.0) % Eosinophils % (0.00-5.0) % Basophils % (0.0-0.4) % Absolute Granulocytes (1.4-6.9) x10^3/uL Basophils # (0-0.4) x10^3/uL Sodium (137-145) mmol/L Potassium 3.3 L 3.9 (3.5-5.1) mmol/L Chloride (98-107) mmol/L Carbon Dioxide (22-30) mmol/L Anion Gap (5-15) MEQ/L BUN (9-20) mg/dL Creatinine (0.66-1.25) mg/dL Estimated GFR ML/MIN Glucose (74-106) mg/dL POC Glucometer 167 H (74 to 106) mg/dL Hemoglobin A1c (4.5-6.0) % Calcium (8.4-10.2) mg/dL Magnesium (1.6-2.3) mg/dL Total Bilirubin (0.2-1.3) mg/dL AST (17-59) U/L ALT (0-50) U/L Alkaline Phosphatase (38-126) U/L Ammonia (9-30) umol/L Serum Total Protein (6.3-8.2) g/dL Albumin (3.5-5.0) g/dL 06/21/23 06/21/23 06/21/23 Range/Units 15:33 16:20 20:20 WBC (4.0-10.5) x10^3/uL RBC (4.1-5.6) x10^6/uL Hgb (12.5-18.0) g/dL Hct (42-50) % MCV (78-100) fL MCH (26-32) pg MCHC (32-36) g/dL RDW (11.5-14.0) % Plt Count (150-450) x10^3/uL MPV (7.5-11.0) fL Gran % (36.0-66.0) % Immature Gran % (Auto) (0.00-0.4) % Nucleat RBC Rel Count (0.00-0.1) % Eos # (Auto) (0-0.5) x10^3/uL Immature Gran # (Auto) (0.00-0.03) x10^3u/L Absolute Lymphs (auto) (1.0-4.6) x10^3/uL Absolute Monos (auto) (0.0-1.3) x10^3/uL Absolute Nucleated RBC (0.00-0.01) x10^3u/L Lymphocytes % (24.0-44.0) % Monocytes % (0.0-12.0) % Eosinophils % (0.00-5.0) % Basophils % (0.0-0.4) % Absolute Granulocytes (1.4-6.9) x10^3/uL Basophils # (0-0.4) x10^3/uL Sodium (137-145) mmol/L Potassium 3.6 4.4 D (3.5-5.1) mmol/L Chloride (98-107) mmol/L Carbon Dioxide (22-30) mmol/L Anion Gap (5-15) MEQ/L BUN (9-20) mg/dL Creatinine (0.66-1.25) mg/dL Estimated GFR ML/MIN Glucose (74-106) mg/dL POC Glucometer 135 H (74 to 106) mg/dL Hemoglobin A1c (4.5-6.0) % Calcium (8.4-10.2) mg/dL Magnesium (1.6-2.3) mg/dL Total Bilirubin (0.2-1.3) mg/dL AST (17-59) U/L ALT (0-50) U/L Alkaline Phosphatase (38-126) U/L Ammonia (9-30) umol/L Serum Total Protein (6.3-8.2) g/dL Albumin (3.5-5.0) g/dL 06/21/23 06/21/23 06/22/23 Range/Units 20:20 21:00 04:30 WBC 6.0 (4.0-10.5) x10^3/uL RBC 5.57 (4.1-5.6) x10^6/uL Hgb 15.9 (12.5-18.0) g/dL Hct 49.6 (42-50) % MCV 89.0 (78-100) fL MCH 28.5 (26-32) pg MCHC 32.1 (32-36) g/dL RDW 17.4 H (11.5-14.0) % Plt Count 204 (150-450) x10^3/uL MPV 11.5 H (7.5-11.0) fL Gran % 59.8 (36.0-66.0) % Immature Gran % (Auto) 0.2 (0.00-0.4) % Nucleat RBC Rel Count 0.0 (0.00-0.1) % Eos # (Auto) 0.14 (0-0.5) x10^3/uL Immature Gran # (Auto) 0.01 (0.00-0.03) x10^3u/L Absolute Lymphs (auto) 1.69 (1.0-4.6) x10^3/uL Absolute Monos (auto) 0.46 (0.0-1.3) x10^3/uL Absolute Nucleated RBC 0.00 (0.00-0.01) x10^3u/L Lymphocytes % 28.1 (24.0-44.0) % Monocytes % 7.6 (0.0-12.0) % Eosinophils % 2.3 (0.00-5.0) % Basophils % 2.0 (0.0-0.4) % Absolute Granulocytes 3.60 (1.4-6.9) x10^3/uL Basophils # 0.12 (0-0.4) x10^3/uL Sodium (137-145) mmol/L Potassium (3.5-5.1) mmol/L Chloride (98-107) mmol/L Carbon Dioxide (22-30) mmol/L Anion Gap (5-15) MEQ/L BUN (9-20) mg/dL Creatinine (0.66-1.25) mg/dL Estimated GFR ML/MIN Glucose (74-106) mg/dL POC Glucometer 251 H (74 to 106) mg/dL Hemoglobin A1c (4.5-6.0) % Calcium (8.4-10.2) mg/dL Magnesium (1.6-2.3) mg/dL Total Bilirubin (0.2-1.3) mg/dL AST (17-59) U/L ALT (0-50) U/L Alkaline Phosphatase (38-126) U/L Ammonia < 9 L (9-30) umol/L Serum Total Protein (6.3-8.2) g/dL Albumin (3.5-5.0) g/dL 06/22/23 Range/Units 04:30 WBC (4.0-10.5) x10^3/uL RBC (4.1-5.6) x10^6/uL Hgb (12.5-18.0) g/dL Hct (42-50) % MCV (78-100) fL MCH (26-32) pg MCHC (32-36) g/dL RDW (11.5-14.0) % Plt Count (150-450) x10^3/uL MPV (7.5-11.0) fL Gran % (36.0-66.0) % Immature Gran % (Auto) (0.00-0.4) % Nucleat RBC Rel Count (0.00-0.1) % Eos # (Auto) (0-0.5) x10^3/uL Immature Gran # (Auto) (0.00-0.03) x10^3u/L Absolute Lymphs (auto) (1.0-4.6) x10^3/uL Absolute Monos (auto) (0.0-1.3) x10^3/uL Absolute Nucleated RBC (0.00-0.01) x10^3u/L Lymphocytes % (24.0-44.0) % Monocytes % (0.0-12.0) % Eosinophils % (0.00-5.0) % Basophils % (0.0-0.4) % Absolute Granulocytes (1.4-6.9) x10^3/uL Basophils # (0-0.4) x10^3/uL Sodium 139 (137-145) mmol/L Potassium 3.4 L D (3.5-5.1) mmol/L Chloride 103 (98-107) mmol/L Carbon Dioxide 29 (22-30) mmol/L Anion Gap 10.2 (5-15) MEQ/L BUN 20 (9-20) mg/dL Creatinine 1.12 (0.66-1.25) mg/dL Estimated GFR > 60.0 ML/MIN Glucose 75 (74-106) mg/dL POC Glucometer (74 to 106) mg/dL Hemoglobin A1c (4.5-6.0) % Calcium 8.3 L (8.4-10.2) mg/dL Magnesium 1.7 (1.6-2.3) mg/dL Total Bilirubin 0.90 (0.2-1.3) mg/dL AST 39 (17-59) U/L ALT 25 (0-50) U/L Alkaline Phosphatase 203 H (38-126) U/L Ammonia (9-30) umol/L Serum Total Protein 6.5 (6.3-8.2) g/dL Albumin 3.2 L (3.5-5.0) g/dL Radiology Exams: Radiology Procedures Category Date Time Status ABDOMEN AND PELVIS W CONTRAST [CT] Urgent Exams 06/21/23 18:50 Taken ABDOMINAL-LIMITED [US] Stat Exams 06/21/23 14:45 Completed CHEST 1 VIEW (PORTABLE) Stat Exams 06/20/23 22:38 Completed ECHO W/2D AND DOPPLER [US] Stat Exams 06/21/23 08:02 Taken Multi-Disciplinary Progress Notes: Multi-Disciplinary Progress Notes 06/21/23 10:08 Case Management Note by Asya Corea REFERRAL FAXED TO [facility] Initialized on 06/21/23 10:08 - END OF NOTE Assessment/Plan (1) Atrial fibrillation with RVR Current Visit: Yes Status: Acute Assessment & Plan: Atrial Fibrillation -Type: long-standing persistent -Monitor on Telemetry -Cardiology consulted, appreciate recs -Rate controlled with: Cardizem 120mg po, which is his home medication, patient has been non-compliant with home meds -rate control to target goal HR <85 bpm at rest if symptomatic, goal HR <110 bpm if asymptomatic -[id number]: 3 -On Eliquis for Anticoagulation, will continue -optimize electrolytes for goal of K at 4 and magnesium at 2 06/22: -Cardiology consulted with recs to d/c benazapril and add entresto starting 06/23 -Continue diruesis as above Code(s): I48.91 - UNSPECIFIED ATRIAL FIBRILLATION (2) CHF exacerbation Current Visit: Yes Status: Acute Assessment & Plan: HFpEF vs HFrEF -Most recent ECHO reviewed from 03/31 EF at 53% -NYHA Class III -Baseline Weight: Unknown -Home Medications: -proBNP 33184 CXR suggestive of cardiogenic overload with superimposed infection bilaterally, physical exam consistent with CHF exacerbation/ patient non-compliant with home medications -Dr. oPe follows patient, consult ordered -Will start IV Lasix 40mg BID -Monitor daily weight and document Strict I/Os -Fluid restriction <1800ml/day and Na Restriction <2g/day - Consider repeat ECHO -Daily BMP to monitor renal function 06/22: -CT reviewed, findings include: 1. New cardiomegaly, large right effusion with atelectasis, and markedly diffuse anasarca favoring cardiac decompensation/CHF versus fluid overload. 2. New fatty hepatomegaly and left renal cyst. 3. Chronic findings including arteriosclerotic disease and chronic bony findings. -Patient on RA, lung sounds clear -Continue diuresis -Echo pending Code(s): I50.9 - HEART FAILURE, UNSPECIFIED (3) Elevated troponin Current Visit: Yes Status: Acute Assessment & Plan: -EKG reviewed noting AFIB, nonspecific ST changes in the lateral lead, no evidence of acute ischemic changes -Continue Tele Code(s): R77.8 - OTHER SPECIFIED ABNORMALITIES OF PLASMA PROTEINS (4) Infiltrate of both lungs present on imaging study Current Visit: Yes Status: Acute Assessment & Plan: -CXR reviewed showing bilateral patchy opacities, will continue Rocephin/azithromycin, convert to po on discharge Code(s): R91.8 - OTHER NONSPECIFIC ABNORMAL FINDING OF LUNG FIELD (5) Hyperglycemia Current Visit: Yes Status: Acute Assessment & Plan: -Stablizing -No recent A1c, will order -SSI moderate Code(s): R73.9 - HYPERGLYCEMIA, UNSPECIFIED (6) Noncompliance with medication regimen Current Visit: Yes Status: Acute Assessment & Plan: -noted, see about [facility] services Code(s): Z91.148 - PATIENT'S OTHER NONCOMPL WITH MEDS REGIMEN FOR OTHER REASON (7) Hypertension Current Visit: Yes Status: Chronic Qualifiers: Assessment & Plan: -Patient still mildly hypertensive, will continue home meds with prn hydralazine, continue to monitor Code(s): I10 - ESSENTIAL (PRIMARY) HYPERTENSION (8) DM (diabetes mellitus) Current Visit: No Status: Acute Qualifiers: Diabetes mellitus type: type 2 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 New cardiomegaly, large right effusion with atelectasis, and markedly diffuse anasarca favoring cardiac decompensation/CHF versus fluid overload. 2. New fatty hepatomegaly and left renal cyst. 3. Chronic findings including arteriosclerotic disease and chronic bony findings. -Continue diuresis Code(s): R60.1 - GENERALIZED EDEMA
[2023-06-22] MEDS: NEURONTIN PO SCH ×2 (08:59→22:08)
[2023-06-22] MEDS: Zithromax 500 MG/ 250 ML NaCl Premix 500 MG/250 ML IVPB IV SCH (08:59)
[2023-06-22] MEDS: Klor Con PO SCH ×2 (08:59→17:36)
[2023-06-22] MEDS: Apresoline 25 MG TABLET PO SCH ×2 (08:59→22:09)
[2023-06-22] MEDS: Lasix 40 MG/4 ML IV SCH ×2 (09:00→17:36)
[2023-06-22] MEDS: Cardizem CD PO SCH (09:00)
[2023-06-22] MEDS: Cymbalta 30 MG Capsule PO SCH (09:00)
[2023-06-22] MEDS: MAG-OX 400 PO SCH ×3 (09:00→22:08)
[2023-06-22] MEDS: Lopressor 50 MG PO SCH ×2 (09:00→22:08)
[2023-06-22] MEDS: CLONIDINE 0.1 MG TABLET PO SCH ×3 (09:00→22:09)
[2023-06-22] MEDS: JARDIANCE PO SCH (09:00)
--- NOTE | 2023-06-22 09:02 | XRAY ---
Indication: Abdomen pain/distention. Multiple contiguous axial images obtained through the abdomen and pelvis using 80 cc Isovue 370 contrast. Enteric contrast also used. Comparison: June 26, 2007 Study slightly degraded by respiration artifact. Lung bases demonstrate new cardiomegaly and incompletely visualized large right effusion with right lung compressive atelectasis. Also new markedly diffuse anasarca. Above findings would favor cardiac decompensation/CHF versus fluid overload. Incidental tiny lingula calcified granuloma. Contrasted stomach and bowel loops appear nonobstructed. Normal appendix. Mild scattered colonic diverticulosis without diverticulitis. New 21 cm fatty hepatomegaly. No free fluid/air. Both kidneys enhance and excrete with 4 mm left renal cyst. Near empty urinary bladder demonstrates Addison balloon catheter in situ. Remaining liver, gallbladder, pancreas, spleen, adrenal glands, kidneys, and ureters are unremarkable. Mild scattered aortoiliac calcifications. No AAA or pathologic retroperitoneal lymphadenopathy. Osseous structures intact with mild degenerative changes throughout thoracolumbar spine. Mild degenerative changes both hips. Again incidental left L5 spondylolysis without listhesis. Impression: 1. New cardiomegaly, large right effusion with atelectasis, and markedly diffuse anasarca favoring cardiac decompensation/CHF versus fluid overload. 2. New fatty hepatomegaly and left renal cyst. 3. Chronic findings including arteriosclerotic disease and chronic bony findings.
[2023-06-22] MEDS: ELIQUIS 2.5 MG TABLET PO SCH ×2 (09:35→22:08)
[2023-06-22] MEDS: HOLD METFORMIN PRODUCTS FOR 48 HOURS MC SCH (10:40)
[2023-06-22] MEDS: HUMALOG SQ PRN ×3 (12:37→22:08)
[2023-06-22 14:56] LABS: Appearance Clear (Clear); Bacteria None Seen /HPF (None Seen); Bilirubin Negative (Negative); Blood Large (Negative); Epithelial Cells None Seen /HPF (None Seen); Glucose, Urine >=1000 mg/dL (Negative); Hyaline Casts NONE SEEN /LPF (0-2); Ketones Negative (Negative); Leukocyte Esterase Trace (Negative); Nitrite Negative (Negative); Protein,Urine Dip 100 (Negative); RBC >100 /HPF (0-5)
[2023-06-22 14:59] LABS: ADD URINE CULTURE? YES (NO)
--- NOTE | 2023-06-22 15:03 | ECHO ---
DATE OF PROCEDURE: 06/21/2023 CLINICAL INFORMATION: Atrial fibrillation. The M-mode 2D, and Doppler echocardiogram including color flow Doppler shows the left ventricle is mildly dilated. There is mild hypertrophy of the ventricular septum. The left ventricular systolic function is at the lower limits of normal. The ejection fraction is calculated to be 50%. The right ventricle is not well visualized. The left atrium is severely dilated. The interatrial septum is intact. The right atrium is dilated. The aortic valve opens well. There is mild sclerosis present. There is mild aortic regurgitation. There is mitral valve leaflet thickening associated with moderate to severe mitral regurgitation. There is moderate tricuspid regurgitation. The right ventricular systolic pressure is calculated to be 47 mm of Mercury. The pulmonic valve is not well visualized. There is moderate pulmonic regurgitation. The aortic root is normal. There is no pericardial effusion present. IMPRESSION: 1) LOW NORMAL CONTRACTILITY OF THE LEFT VENTRICLE. 2) MILD ASYMMETRIC LEFT VENTRICULAR HYPERTROPHY INVOLVING THE LEFT VENTRICULAR SEPTUM. 3) MILD LEFT VENTRICULAR DILATATION. 4) SEVERE LEFT ATRIAL DILATATION. 5) MILD AORTIC REGURGITATION. 6) MODERATE TO SEVERE MITRAL REGURGITATION. 7) MODERATE TRICUSPID REGURGITATION. 8) MODERATE PULMONARY HYPERTENSION. 9) MODERATE PULMONIC REGURGITATION.
[2023-06-22] MEDS: ENTRESTO 49 MG-51 MG TABLET PO SCH (22:08)
[2023-06-22] MEDS: ZOCOR 20MG PO SCH (22:08)
[2023-06-22] MEDS: Flomax 0.4 MG PO SCH (22:08)
[2023-06-22] MEDS: ROCEPHIN 1 Gm-D5w 50 ml Bag** 1 G/50 ML IVPB IV SCH (22:35)
--- NOTE | 2023-06-23 05:17 | PCM.NOTE ---
Date and Time: 06/23/23 05 Subjective Assessment: Mr. Cornejo is a 63 year old with PMHX of TIA, AFIB (on cardizem/lopressor/Eliquis), HTN, DM 2, anxiety, depression, and non-compliance with medication regimen who presented to ER 06/21/23 with complaints of shortness of breath and BLE edema admitted for weakness, CHF exacerbation, pneumonia, AFIB RVR, and hypokalemia. Patient was provided IV lasix, hydralazine, metoprolol, cardizem , potassium, and ceftriaxone in the with noted improvement but stated he was too weak to return home. During hospitalization, HR in the 130's despite resumption of oral cardizem. Cardiology has been consulted for further recommendations. Patient endorses diffuse lower abdominal pain during interview. Upon examination, abdomen is noted firm with some induration to the lower quadrants, most likley secondary to anasarca, US unremarkable. CT showing cardiomegaly, right effusion with atelectasis, diffuse anasarca consistent with CHF vs fluid overload, fatty hepatomegaly, and other chronic findings. Patient endorses improvement of symptoms, still with weakness and shortness of breath at times, no longer with abdominal pain, working with PT. Patient was also noted with hematuria in f/c bag, is on eliquis,urine culture negative. Denies fever, cough,cp, BABB, dizziness, N/V/D. - Review of Systems Constitutional: No Symptoms Eyes: No Symptoms Ears, Nose, & Throat: No Symptoms Respiratory: Short Of Breath Cardiac: Edema Abdominal/Gastrointestinal: No Symptoms Genitourinary Symptoms: Hematuria Musculoskeletal: No Symptoms Skin: Induration (bilateral lower quads) Neurological: No Symptoms Psychological: No Symptoms Objective Exam General Appearance: no apparent distress Neurologic Exam: alert, oriented x 3, cooperative Skin Exam: pale Eye Exam: PERRL Ears, Nose, Throat Exam: normal ENT inspection Neck Exam: normal inspection Respiratory Exam: diminished breath sounds (RMl/ RLL) Cardiovascular Exam: regular rate/rhythm, normal heart sounds, edema (BLE edema 3+ pitting) Gastrointestinal/Abdomen Exam: soft, normal bowel sounds Extremity Exam: pedal edema, swelling Back Exam: normal inspection OBJECTIVE DATA Vital Signs: Vital Signs - 24 hr Temp Pulse Resp BP Pulse Ox 06/23/23 04:00 97.1 F 74 20 100/75 95 06/23/23 00:00 97.1 F 75 20 103/69 95 06/22/23 20:00 96.8 F 62 24 100/58 95 06/22/23 19:00 74 16 99 06/22/23 17:25 100/73 06/22/23 16:00 96.8 F 58 L 20 85/67 96 06/22/23 12:00 97.1 F 72 16 110/62 95 06/22/23 08:03 71 16 95 06/22/23 07:11 96.0 F 71 16 107/65 95 Pain Assessment - Last Documented Pain Intensity 0 Intake and Output: Intake & Output 06/20/23 06/21/23 06/22/23 06/23/23 11:59 11:59 11:59 11:59 Intake Total 720 1966 1860 Output Total 2900 3735 100 Balance -2180 -1769 1760 Weight 114.3 kg 114.3 kg Lab Results: Lab Results-Last 24 Hours 06/22/23 06/22/23 06/22/23 Range/Units 04:30 04:30 07:06 WBC 6.0 (4.0-10.5) x10^3/uL RBC 5.57 (4.1-5.6) x10^6/uL Hgb 15.9 (12.5-18.0) g/dL Hct 49.6 (42-50) % MCV 89.0 (78-100) fL MCH 28.5 (26-32) pg MCHC 32.1 (32-36) g/dL RDW 17.4 H (11.5-14.0) % Plt Count 204 (150-450) x10^3/uL MPV 11.5 H (7.5-11.0) fL Gran % 59.8 (36.0-66.0) % Immature Gran % (Auto) 0.2 (0.00-0.4) % Nucleat RBC Rel Count 0.0 (0.00-0.1) % Eos # (Auto) 0.14 (0-0.5) x10^3/uL Immature Gran # (Auto) 0.01 (0.00-0.03) x10^3u/L Absolute Lymphs (auto) 1.69 (1.0-4.6) x10^3/uL Absolute Monos (auto) 0.46 (0.0-1.3) x10^3/uL Absolute Nucleated RBC 0.00 (0.00-0.01) x10^3u/L Lymphocytes % 28.1 (24.0-44.0) % Monocytes % 7.6 (0.0-12.0) % Eosinophils % 2.3 (0.00-5.0) % Basophils % 2.0 (0.0-0.4) % Absolute Granulocytes 3.60 (1.4-6.9) x10^3/uL Basophils # 0.12 (0-0.4) x10^3/uL Sodium 139 (137-145) mmol/L Potassium 3.4 L D (3.5-5.1) mmol/L Chloride 103 (98-107) mmol/L Carbon Dioxide 29 (22-30) mmol/L Anion Gap 10.2 (5-15) MEQ/L BUN 20 (9-20) mg/dL Creatinine 1.12 (0.66-1.25) mg/dL Estimated GFR > 60.0 ML/MIN Glucose 75 (74-106) mg/dL POC Glucometer 99 (74 to 106) mg/dL Calcium 8.3 L (8.4-10.2) mg/dL Magnesium 1.7 (1.6-2.3) mg/dL Total Bilirubin 0.90 (0.2-1.3) mg/dL AST 39 (17-59) U/L ALT 25 (0-50) U/L Alkaline Phosphatase 203 H (38-126) U/L Serum Total Protein 6.5 (6.3-8.2) g/dL Albumin 3.2 L (3.5-5.0) g/dL Urine Color (Yellow) Urine Appearance (Clear) Urine pH (4.6-8.0) Ur Specific [place] (1.005-1.030) Urine Protein (Negative) Urine Glucose (UA) (Negative) mg/dL Urine Ketones (Negative) Urine Blood (Negative) Urine Nitrite (Negative) Urine Bilirubin (Negative) Urine Urobilinogen (0.2) mg/dL Ur Leukocyte Esterase (Negative) U Hyaline Cast (Auto) (0-2) /LPF Urine Microscopic RBC (0-5) /HPF Urine Microscopic WBC (0-5) /HPF Ur Epithelial Cells (None Seen) /HPF Urine Bacteria (None Seen) /HPF Urine Culture Reflexed (NO) 06/22/23 06/22/23 06/22/23 Range/Units 11:40 16:48 22:03 WBC (4.0-10.5) x10^3/uL RBC (4.1-5.6) x10^6/uL Hgb (12.5-18.0) g/dL Hct (42-50) % MCV (78-100) fL MCH (26-32) pg MCHC (32-36) g/dL RDW (11.5-14.0) % Plt Count (150-450) x10^3/uL MPV (7.5-11.0) fL Gran % (36.0-66.0) % Immature Gran % (Auto) (0.00-0.4) % Nucleat RBC Rel Count (0.00-0.1) % Eos # (Auto) (0-0.5) x10^3/uL Immature Gran # (Auto) (0.00-0.03) x10^3u/L Absolute Lymphs (auto) (1.0-4.6) x10^3/uL Absolute Monos (auto) (0.0-1.3) x10^3/uL Absolute Nucleated RBC (0.00-0.01) x10^3u/L Lymphocytes % (24.0-44.0) % Monocytes % (0.0-12.0) % Eosinophils % (0.00-5.0) % Basophils % (0.0-0.4) % Absolute Granulocytes (1.4-6.9) x10^3/uL Basophils # (0-0.4) x10^3/uL Sodium (137-145) mmol/L Potassium (3.5-5.1) mmol/L Chloride (98-107) mmol/L Carbon Dioxide (22-30) mmol/L Anion Gap (5-15) MEQ/L BUN (9-20) mg/dL Creatinine (0.66-1.25) mg/dL Estimated GFR ML/MIN Glucose (74-106) mg/dL POC Glucometer 200 H 154 H 180 H (74 to 106) mg/dL Calcium (8.4-10.2) mg/dL Magnesium (1.6-2.3) mg/dL Total Bilirubin (0.2-1.3) mg/dL AST (17-59) U/L ALT (0-50) U/L Alkaline Phosphatase (38-126) U/L Serum Total Protein (6.3-8.2) g/dL Albumin (3.5-5.0) g/dL Urine Color (Yellow) Urine Appearance (Clear) Urine pH (4.6-8.0) Ur Specific [place] (1.005-1.030) Urine Protein (Negative) Urine Glucose (UA) (Negative) mg/dL Urine Ketones (Negative) Urine Blood (Negative) Urine Nitrite (Negative) Urine Bilirubin (Negative) Urine Urobilinogen (0.2) mg/dL Ur Leukocyte Esterase (Negative) U Hyaline Cast (Auto) (0-2) /LPF Urine Microscopic RBC (0-5) /HPF Urine Microscopic WBC (0-5) /HPF Ur Epithelial Cells (None Seen) /HPF Urine Bacteria (None Seen) /HPF Urine Culture Reflexed (NO) 06/22/23 Range/Units Unknown WBC (4.0-10.5) x10^3/uL RBC (4.1-5.6) x10^6/uL Hgb (12.5-18.0) g/dL Hct (42-50) % MCV (78-100) fL MCH (26-32) pg MCHC (32-36) g/dL RDW (11.5-14.0) % Plt Count (150-450) x10^3/uL MPV (7.5-11.0) fL Gran % (36.0-66.0) % Immature Gran % (Auto) (0.00-0.4) % Nucleat RBC Rel Count (0.00-0.1) % Eos # (Auto) (0-0.5) x10^3/uL Immature Gran # (Auto) (0.00-0.03) x10^3u/L Absolute Lymphs (auto) (1.0-4.6) x10^3/uL Absolute Monos (auto) (0.0-1.3) x10^3/uL Absolute Nucleated RBC (0.00-0.01) x10^3u/L Lymphocytes % (24.0-44.0) % Monocytes % (0.0-12.0) % Eosinophils % (0.00-5.0) % Basophils % (0.0-0.4) % Absolute Granulocytes (1.4-6.9) x10^3/uL Basophils # (0-0.4) x10^3/uL Sodium (137-145) mmol/L Potassium (3.5-5.1) mmol/L Chloride (98-107) mmol/L Carbon Dioxide (22-30) mmol/L Anion Gap (5-15) MEQ/L BUN (9-20) mg/dL Creatinine (0.66-1.25) mg/dL Estimated GFR ML/MIN Glucose (74-106) mg/dL POC Glucometer (74 to 106) mg/dL Calcium (8.4-10.2) mg/dL Magnesium (1.6-2.3) mg/dL Total Bilirubin (0.2-1.3) mg/dL AST (17-59) U/L ALT (0-50) U/L Alkaline Phosphatase (38-126) U/L Serum Total Protein (6.3-8.2) g/dL Albumin (3.5-5.0) g/dL Urine Color [place] A (Yellow) Urine Appearance Clear (Clear) Urine pH 6.0 (4.6-8.0) Ur Specific [place] 1.020 (1.005-1.030) Urine Protein 100 A (Negative) Urine Glucose (UA) >=1000 A (Negative) mg/dL Urine Ketones Negative (Negative) Urine Blood Large A (Negative) Urine Nitrite Negative (Negative) Urine Bilirubin Negative (Negative) Urine Urobilinogen 1.0 A (0.2) mg/dL Ur Leukocyte Esterase Trace A (Negative) U Hyaline Cast (Auto) NONE SEEN (0-2) /LPF Urine Microscopic RBC >100 A (0-5) /HPF Urine Microscopic WBC 11-20 A (0-5) /HPF Ur Epithelial Cells None Seen (None Seen) /HPF Urine Bacteria None Seen (None Seen) /HPF Urine Culture Reflexed YES (NO) Radiology Exams: Radiology Procedures Category Date Time Status ABDOMEN AND PELVIS W CONTRAST [CT] Urgent Exams 06/21/23 18:50 Completed ABDOMINAL-LIMITED [US] Stat Exams 06/21/23 14:45 Completed ECHO W/2D AND DOPPLER [US] Stat Exams 06/21/23 08:02 Draft Multi-Disciplinary Progress Notes: Multi-Disciplinary Progress Notes 06/22/23 10:02 Case Management Note by Asya Corea S/W PATIENT - HE PLANS TO RETURN HOME TO HIS DAUGHTERS HOUSE FOR A BIT PRIOR TO RETURNING TO HIS OWN HOME. DISCUSSED WITH PATIENT OTPT THERAPY- HE DECLINES AT THIS TIME- HE STATED HIS DAUGHTER WILL HELP HIM AT HOME. Initialized on 06/22/23 10:02 - END OF NOTE Assessment/Plan (1) Atrial fibrillation with RVR Current Visit: Yes Status: Acute Assessment & Plan: Atrial Fibrillation -Type: long-standing persistent -Monitor on Telemetry -Cardiology consulted, appreciate recs -Rate controlled with: Cardizem 120mg po, which is his home medication, patient has been non-compliant with home meds -rate control to target goal HR <85 bpm at rest if symptomatic, goal HR <110 bpm if asymptomatic -[id number]: 3 -On Eliquis for Anticoagulation, will continue -optimize electrolytes for goal of K at 4 and magnesium at 2 06/22: -Cardiology consulted with recs to d/c benazapril and add entresto starting 06/23 Code(s): I48.91 - UNSPECIFIED ATRIAL FIBRILLATION (2) CHF exacerbation Current Visit: Yes Status: Acute Assessment & Plan: HFpEF -Most recent ECHO reviewed from 03/31 EF at 53% -NYHA Class III -Baseline Weight: Unknown -Home Medications: -proBNP 19830 CXR suggestive of cardiogenic overload with superimposed infection bilaterally, physical exam consistent with CHF exacerbation/ patient non-compliant with home medications -Dr. Poe follows patient, consult ordered -Will start IV Lasix 40mg BID -Monitor daily weight and document Strict I/Os -Fluid restriction <1800ml/day and Na Restriction <2g/day - Consider repeat ECHO -Daily BMP to monitor renal function 06/22: -CT reviewed, findings include: 1. New cardiomegaly, large right effusion with atelectasis, and markedly diffuse anasarca favoring cardiac decompensation/CHF versus fluid overload. 2. New fatty hepatomegaly and left renal cyst. 3. Chronic findings including arteriosclerotic disease and chronic bony findings. -Patient on RA, lung sounds clear -Continue diuresis -Echo pending 06/23: -ECHO reviewed impression as follows: IMPRESSION: EF 50% 1) LOW NORMAL CONTRACTILITY OF THE LEFT VENTRICLE. 2) MILD ASYMMETRIC LEFT VENTRICULAR HYPERTROPHY INVOLVING THE LEFT VENTRICULAR SEPTUM. 3) MILD LEFT VENTRICULAR DILATATION. 4) SEVERE LEFT ATRIAL DILATATION. 5) MILD AORTIC REGURGITATION. 6) MODERATE TO SEVERE MITRAL REGURGITATION. 7) MODERATE TRICUSPID REGURGITATION. 8) MODERATE PULMONARY HYPERTENSION. 9) MODERATE PULMONIC REGURGITATION -Increase lasix to 80mg BID Code(s): I50.9 - HEART FAILURE, UNSPECIFIED (3) Elevated troponin Current Visit: Yes Status: Acute Assessment & Plan: EKG reviewed noting AFIB, nonspecific ST changes in the lateral lead, no evidence of acute ischemic changes -Continue Tele Code(s): R77.8 - OTHER SPECIFIED ABNORMALITIES OF PLASMA PROTEINS (4) Infiltrate of both lungs present on imaging study Current Visit: Yes Status: Acute Assessment & Plan: CXR reviewed showing bilateral patchy opacities, will continue Rocephin/azithromycin, convert to po on discharge 06/23: -CT imaging showing large right pleural effusion with diminished breath sounds, will consult IR for possible thoracentesis -Hold eliquis Code(s): R91.8 - OTHER NONSPECIFIC ABNORMAL FINDING OF LUNG FIELD (5) Hyperglycemia Current Visit: Yes Status: Acute Assessment & Plan: -Stablizing -No recent A1c, will order -SSI moderate Code(s): R73.9 - HYPERGLYCEMIA, UNSPECIFIED (6) Noncompliance with medication regimen Current Visit: Yes Status: Acute Assessment & Plan: -noted, see about [facility] services Code(s): Z91.148 - PATIENT'S OTHER NONCOMPL WITH MEDS REGIMEN FOR OTHER REASON (7) Hypertension Current Visit: Yes Status: Chronic Qualifiers: Assessment & Plan: -Stable continue to monitor Code(s): I10 - ESSENTIAL (PRIMARY) HYPERTENSION (8) DM (diabetes mellitus) Current Visit: No Status: Acute Qualifiers: Diabetes mellitus type: type 2 Diabetes mellitus halfway insulin use: unspecified halfway insulin use status Assessment & Plan: -see hyperglycemia Code(s): E11.9 - TYPE 2 DIABETES MELLITUS WITHOUT COMPLICATIONS (9) Elevated brain natriuretic peptide (BNP) level Current Visit: No Status: Acute Assessment & Plan: -see CHF exacerbation Code(s): R79.89 - OTHER SPECIFIED ABNORMAL FINDINGS OF BLOOD CHEMISTRY (10) Anasarca Current Visit: Yes Status: Chronic Assessment & Plan: -US abdomen results showing no free fluid, CT with the following findings: Impression: 1. New cardiomegaly, large right effusion with atelectasis, and markedly diffuse anasarca favoring cardiac decompensation/CHF versus fluid overload. 2. New fatty hepatomegaly and left renal cyst. 3. Chronic findings including arteriosclerotic disease and chronic bony findings. -Continue diuresis 06/23: -CT scan noting New cardiomegaly, large right effusion with atelectasis, and markedly diffuse anasarca favoring cardiac decompensation/CHF versus fluid overload. 2. New fatty hepatomegaly and left renal cyst. 3. Chronic findings including arteriosclerotic disease and chronic bony findings. Code(s): R60.1 - GENERALIZED EDEMA
[2023-06-23 08:26] LABS: Absolute Neutrophil Ct (ANC) 3.45 x10^3/uL (1.4-6.9); BASOPHIL % 2.3 % (0.0-0.4); Basophil (Absolute #) 0.14 x10^3/uL (0-0.4); Eosinophil % 3.7 % (0.00-5.0); Eosinophil (Absolute #) 0.23 x10^3/uL (0-0.5); Hematocrit 51.4 % (42-50); Hemoglobin 16.5 g/dL (12.5-18.0); IMMATURE GRAN # 0.03 x10^3u/L (0.00-0.03); IMMATURE GRAN % 0.5 % (0.00-0.4); Lymphocyte (Absolute #) 1.87 x10^3/uL (1.0-4.6); Lymphocytes % 30.2 % (24.0-44.0); Mean Cell Volume 89.9 fL (78-100); Mean Corpuscular Hemoglobin 28.8 pg (26-32); Mean Corpuscular Hgb Concent. 32.1 g/dL (32-36); Mean Platelet Volume 11.4 fL (7.5-11.0); Monocyte (Absolute #) 0.47 x10^3/uL (0.0-1.3); Monocytes % 7.6 % (0.0-12.0); Neutrophil % 55.7 % (36.0-66.0); Platelet Count 203 x10^3/uL (150-450); Red Blood Count 5.72 x10^6/uL (4.1-5.6); Red Cell Distribution Width 16.3 % (11.5-14.0); White Blood Count 6.2 x10^3/uL (4.0-10.5)
[2023-06-23] MEDS: Lasix 40 MG/4 ML IV SCH ×2 (09:45→17:31)
[2023-06-23] MEDS: NEURONTIN PO SCH ×2 (09:45→21:59)
[2023-06-23] MEDS: Klor Con PO SCH ×2 (09:45→17:31)
[2023-06-23] MEDS: ENTRESTO 49 MG-51 MG TABLET PO SCH ×2 (09:46→21:59)
[2023-06-23] MEDS: ELIQUIS 2.5 MG TABLET PO SCH (09:46)
[2023-06-23] MEDS: Cymbalta 30 MG Capsule PO SCH (09:46)
[2023-06-23] MEDS: JARDIANCE PO SCH (09:46)
[2023-06-23] MEDS: MAG-OX 400 PO SCH ×3 (09:46→21:59)
[2023-06-23] MEDS: Cardizem CD PO SCH (09:46)
[2023-06-23] MEDS: Lopressor 50 MG PO SCH ×2 (09:46→21:59)
[2023-06-23] MEDS: CLONIDINE 0.1 MG TABLET PO SCH ×3 (09:50→21:58)
[2023-06-23] MEDS: Apresoline 25 MG TABLET PO SCH ×2 (09:50→21:58)
[2023-06-23] MEDS: HOLD METFORMIN PRODUCTS FOR 48 HOURS MC SCH (09:50)
[2023-06-23] MEDS: Zithromax 500 MG/ 250 ML NaCl Premix 500 MG/250 ML IVPB IV SCH (09:53)
[2023-06-23] MEDS ORDERED: Zaroxolyn 2.5 MG PO SCH (10:00)
[2023-06-23 10:12] LABS: ALBUMIN 3.1 g/dL (3.5-5.0); ALKALINE PHOSPHATASE 215 U/L (38-126); ANION GAP 11.9 MEQ/L (5-15); BLOOD UREA NITROGEN 22 mg/dL (9-20); CHLORIDE 102 mmol/L (98-107); Carbon Dioxide 27 mmol/L (22-30); Creatinine 1 1.09 mg/dL (0.66-1.25); EST GLOMERULAR FILTRATION RATE > 60.0 ML/MIN; Glucose 92 mg/dL (74-106); MAGNESIUM 1.9 mg/dL (1.6-2.3); Potassium 3.8 mmol/L (3.5-5.1); SGOT/AST 40 U/L (17-59); SGPT/ALT 23 U/L (0-50); SODIUM 137 mmol/L (137-145); Total Protein 6.4 g/dL (6.3-8.2)
[2023-06-23] MEDS ORDERED: Zaroxolyn 2.5 MG PO ONE (21:34)
[2023-06-23] MEDS: Flomax 0.4 MG PO SCH (21:59)
[2023-06-23] MEDS: ZOCOR 20MG PO SCH (21:59)
[2023-06-23] MEDS: HUMALOG SQ PRN (22:01)
[2023-06-23] MEDS: ROCEPHIN 1 Gm-D5w 50 ml Bag** 1 G/50 ML IVPB IV SCH (22:05)
[2023-06-24 05:15] LABS: Absolute Neutrophil Ct (ANC) 3.34 x10^3/uL (1.4-6.9); BASOPHIL % 1.9 % (0.0-0.4); Basophil (Absolute #) 0.11 x10^3/uL (0-0.4); Eosinophil % 2.7 % (0.00-5.0); Eosinophil (Absolute #) 0.16 x10^3/uL (0-0.5); Hematocrit 49.3 % (42-50); Hemoglobin 15.9 g/dL (12.5-18.0); IMMATURE GRAN # 0.02 x10^3u/L (0.00-0.03); IMMATURE GRAN % 0.3 % (0.00-0.4); Lymphocyte (Absolute #) 1.74 x10^3/uL (1.0-4.6); Lymphocytes % 29.8 % (24.0-44.0); Mean Corpuscular Hemoglobin 28.7 pg (26-32); Mean Corpuscular Hgb Concent. 32.3 g/dL (32-36); Mean Platelet Volume 11.9 fL (7.5-11.0); Monocyte (Absolute #) 0.46 x10^3/uL (0.0-1.3); Monocytes % 7.9 % (0.0-12.0); Neutrophil % 57.4 % (36.0-66.0); Platelet Count 208 x10^3/uL (150-450); Red Blood Count 5.54 x10^6/uL (4.1-5.6); Red Cell Distribution Width 16.5 % (11.5-14.0); White Blood Count 5.8 x10^3/uL (4.0-10.5)
[2023-06-24 05:50] LABS: ALBUMIN 3.1 g/dL (3.5-5.0); ALKALINE PHOSPHATASE 210 U/L (38-126); ANION GAP 10.2 MEQ/L (5-15); BLOOD UREA NITROGEN 22 mg/dL (9-20); CHLORIDE 100 mmol/L (98-107); Carbon Dioxide 29 mmol/L (22-30); Creatinine 1 1.04 mg/dL (0.66-1.25); EST GLOMERULAR FILTRATION RATE > 60.0 ML/MIN; Glucose 105 mg/dL (74-106); MAGNESIUM 1.9 mg/dL (1.6-2.3); Potassium 3.5 mmol/L (3.5-5.1); SGOT/AST 39 U/L (17-59); SGPT/ALT 24 U/L (0-50); SODIUM 135 mmol/L (137-145); Total Protein 6.3 g/dL (6.3-8.2)
--- NOTE | 2023-06-24 07:19 | PCM.NOTE ---
Date and Time: 06/24/23 0713 Subjective Assessment: Mr. Cornejo is a 63 year old with PMHX of TIA, AFIB (on cardizem/lopressor/Eliquis), HTN, DM 2, anxiety, depression, and non-compliance with medication regimen who presented to ER 06/21/23 with complaints of shortness of breath and BLE edema admitted for weakness, CHF exacerbation, pneumonia, AFIB RVR, and hypokalemia. Patient was provided IV lasix, hydralazine, metoprolol, cardizem , potassium, and ceftriaxone in the with noted improvement but stated he was too weak to return home. During hospitalization, HR in the 130's despite resumption of oral cardizem. Cardiology has been consulted for further recommendations. Lower abdominal pain has improvd since admission and CT shows anasarca. US unremarkable. CT showing cardiomegaly, right effusion with atelectasis, diffuse anasarca consistent with CHF vs fluid overload, fatty hepatomegaly, and other chronic findings. Patient endorses improvement of symptoms, still with weakness and shortness of breath at times, no longer with abdominal pain, working with PT. He is scheduled today to have a thoracentesis. Denies fever, cough,cp, BABB, dizziness, N/V/D. - Review of Systems Constitutional: No Fever, No Chills Eyes: No Symptoms Ears, Nose, & Throat: No Symptoms Respiratory: No Cough, No Short Of Breath Cardiac: No Chest Pain, No Edema, No Syncope Abdominal/Gastrointestinal: No Abdominal Pain, No Nausea, No Vomiting, No Diarrhea Genitourinary Symptoms: No Dysuria Musculoskeletal: No Back Pain, No Neck Pain Skin: No Rash Neurological: No Dizziness, No Focal Weakness, No Sensory Changes Psychological: No Symptoms Endocrine: No Symptoms Hematologic/Lymphatic: No Symptoms Immunological/Allergic: No Symptoms Objective Exam General Appearance: no apparent distress, alert Neurologic Exam: alert, oriented x 3, cooperative, normal mood/affect, nml cerebellar function, sensation nml, No motor deficits Skin Exam: normal color, warm, dry Eye Exam: PERRL, EOMI, eyes nml inspection Ears, Nose, Throat Exam: normal ENT inspection, pharynx normal, moist mucous membranes Neck Exam: normal inspection, non-tender, supple, full range of motion Respiratory Exam: normal breath sounds, lungs clear, diminished breath sounds (RLL), No respiratory distress Cardiovascular Exam: regular rate/rhythm, normal heart sounds Gastrointestinal/Abdomen Exam: soft, No tenderness, No mass Extremity Exam: normal inspection, normal range of motion Back Exam: normal inspection, normal range of motion, No CVA tenderness, No vertebral tenderness Male Genitalia Exam: deferred Rectal Exam: deferred OBJECTIVE DATA Vital Signs: Vital Signs - 24 hr Temp Pulse Resp BP BP Pulse Ox 06/24/23 04:00 97.0 F 93 H 19 110/72 95 06/23/23 23:33 98.8 F 89 20 108/64 95 06/23/23 20:02 90 155/90 06/23/23 18:51 96.2 F 74 18 87/58 95 06/23/23 18:35 80 18 96 06/23/23 16:05 65 106/74 06/23/23 15:22 82 16 98 06/23/23 12:56 98.7 F 84 15 100/68 98 06/23/23 09:43 90 94/61 06/23/23 07:14 96.5 F 80 18 87/65 93 L Pain Assessment - Last Documented Pain Intensity 0 Intake and Output: Intake & Output 06/21/23 06/22/23 06/23/23 06/24/23 11:59 11:59 11:59 11:59 Intake Total 720 1966 2100 2119 Output Total 2900 3735 100 1 Balance -2180 -1768 1999 2117 Weight 114.3 kg 114.3 kg 114.4 kg Lab Results: Lab Results-Last 24 Hours 06/23/23 06/23/23 06/23/23 Range/Units 08:20 08:20 08:20 WBC 6.2 (4.0-10.5) x10^3/uL RBC 5.72 H (4.1-5.6) x10^6/uL Hgb 16.5 (12.5-18.0) g/dL Hct 51.4 H (42-50) % MCV 89.9 (78-100) fL MCH 28.8 (26-32) pg MCHC 32.1 (32-36) g/dL RDW 16.3 H (11.5-14.0) % Plt Count 203 (150-450) x10^3/uL MPV 11.4 H (7.5-11.0) fL Gran % 55.7 (36.0-66.0) % Immature Gran % (Auto) 0.5 H (0.00-0.4) % Nucleat RBC Rel Count 0.0 (0.00-0.1) % Eos # (Auto) 0.23 (0-0.5) x10^3/uL Immature Gran # (Auto) 0.03 (0.00-0.03) x10^3u/L Absolute Lymphs (auto) 1.87 (1.0-4.6) x10^3/uL Absolute Monos (auto) 0.47 (0.0-1.3) x10^3/uL Absolute Nucleated RBC 0.00 (0.00-0.01) x10^3u/L Lymphocytes % 30.2 (24.0-44.0) % Monocytes % 7.6 (0.0-12.0) % Eosinophils % 3.7 (0.00-5.0) % Basophils % 2.3 (0.0-0.4) % Absolute Granulocytes 3.45 (1.4-6.9) x10^3/uL Basophils # 0.14 (0-0.4) x10^3/uL Sodium 137 (137-145) mmol/L Potassium 3.8 (3.5-5.1) mmol/L Chloride 102 (98-107) mmol/L Carbon Dioxide 27 (22-30) mmol/L Anion Gap 11.9 (5-15) MEQ/L BUN 22 H (9-20) mg/dL Creatinine 1.09 (0.66-1.25) mg/dL Estimated GFR > 60.0 ML/MIN Glucose 92 (74-106) mg/dL POC Glucometer (74 to 106) mg/dL Calcium 8.0 L (8.4-10.2) mg/dL Magnesium 1.9 (1.6-2.3) mg/dL Total Bilirubin 1.20 (0.2-1.3) mg/dL AST 40 (17-59) U/L ALT 23 (0-50) U/L Alkaline Phosphatase 215 H (38-126) U/L NT-Pro-B Natriuret Pep 5370 (<300) pg/mL Serum Total Protein 6.4 (6.3-8.2) g/dL Albumin 3.1 L (3.5-5.0) g/dL 06/23/23 06/23/23 06/23/23 Range/Units 11:07 16:33 21:22 WBC (4.0-10.5) x10^3/uL RBC (4.1-5.6) x10^6/uL Hgb (12.5-18.0) g/dL Hct (42-50) % MCV (78-100) fL MCH (26-32) pg MCHC (32-36) g/dL RDW (11.5-14.0) % Plt Count (150-450) x10^3/uL MPV (7.5-11.0) fL Gran % (36.0-66.0) % Immature Gran % (Auto) (0.00-0.4) % Nucleat RBC Rel Count (0.00-0.1) % Eos # (Auto) (0-0.5) x10^3/uL Immature Gran # (Auto) (0.00-0.03) x10^3u/L Absolute Lymphs (auto) (1.0-4.6) x10^3/uL Absolute Monos (auto) (0.0-1.3) x10^3/uL Absolute Nucleated RBC (0.00-0.01) x10^3u/L Lymphocytes % (24.0-44.0) % Monocytes % (0.0-12.0) % Eosinophils % (0.00-5.0) % Basophils % (0.0-0.4) % Absolute Granulocytes (1.4-6.9) x10^3/uL Basophils # (0-0.4) x10^3/uL Sodium (137-145) mmol/L Potassium (3.5-5.1) mmol/L Chloride (98-107) mmol/L Carbon Dioxide (22-30) mmol/L Anion Gap (5-15) MEQ/L BUN (9-20) mg/dL Creatinine (0.66-1.25) mg/dL Estimated GFR ML/MIN Glucose (74-106) mg/dL POC Glucometer 166 H 212 H 228 H (74 to 106) mg/dL Calcium (8.4-10.2) mg/dL Magnesium (1.6-2.3) mg/dL Total Bilirubin (0.2-1.3) mg/dL AST (17-59) U/L ALT (0-50) U/L Alkaline Phosphatase (38-126) U/L NT-Pro-B Natriuret Pep (<300) pg/mL Serum Total Protein (6.3-8.2) g/dL Albumin (3.5-5.0) g/dL 06/24/23 06/24/23 06/24/23 Range/Units 05:05 05:05 07:02 WBC 5.8 (4.0-10.5) x10^3/uL RBC 5.54 (4.1-5.6) x10^6/uL Hgb 15.9 (12.5-18.0) g/dL Hct 49.3 (42-50) % MCV 89.0 (78-100) fL MCH 28.7 (26-32) pg MCHC 32.3 (32-36) g/dL RDW 16.5 H (11.5-14.0) % Plt Count 208 (150-450) x10^3/uL MPV 11.9 H (7.5-11.0) fL Gran % 57.4 (36.0-66.0) % Immature Gran % (Auto) 0.3 (0.00-0.4) % Nucleat RBC Rel Count 0.0 (0.00-0.1) % Eos # (Auto) 0.16 (0-0.5) x10^3/uL Immature Gran # (Auto) 0.02 (0.00-0.03) x10^3u/L Absolute Lymphs (auto) 1.74 (1.0-4.6) x10^3/uL Absolute Monos (auto) 0.46 (0.0-1.3) x10^3/uL Absolute Nucleated RBC 0.00 (0.00-0.01) x10^3u/L Lymphocytes % 29.8 (24.0-44.0) % Monocytes % 7.9 (0.0-12.0) % Eosinophils % 2.7 (0.00-5.0) % Basophils % 1.9 (0.0-0.4) % Absolute Granulocytes 3.34 (1.4-6.9) x10^3/uL Basophils # 0.11 (0-0.4) x10^3/uL Sodium 135 L (137-145) mmol/L Potassium 3.5 (3.5-5.1) mmol/L Chloride 100 (98-107) mmol/L Carbon Dioxide 29 (22-30) mmol/L Anion Gap 10.2 (5-15) MEQ/L BUN 22 H (9-20) mg/dL Creatinine 1.04 (0.66-1.25) mg/dL Estimated GFR > 60.0 ML/MIN Glucose 105 (74-106) mg/dL POC Glucometer 120 H (74 to 106) mg/dL Calcium 8.0 L (8.4-10.2) mg/dL Magnesium 1.9 (1.6-2.3) mg/dL Total Bilirubin 1.00 (0.2-1.3) mg/dL AST 39 (17-59) U/L ALT 24 (0-50) U/L Alkaline Phosphatase 210 H (38-126) U/L NT-Pro-B Natriuret Pep (<300) pg/mL Serum Total Protein 6.3 (6.3-8.2) g/dL Albumin 3.1 L (3.5-5.0) g/dL Radiology Exams: Radiology Procedures Category Date Time Status THORACENTESIS [US] Urgent Exams 06/24/23 09:00 Ordered Multi-Disciplinary Progress Notes: Multi-Disciplinary Progress Notes 06/23/23 10:35 Physical Therapy Note by Cecy(Veronica#[id number])Nancy PT. WAS SEEN BY P.T. THIS A.M. REPORTS NO C/O PN. AGREEABLE TO WORK W/ P.T. PT. ALERT AND ORIENTED. IN BED UPON P.T. ARRIVAL TO ROOM. PERFORMED SUPINE TO SIT W/ SBA. SIT TO STAND W/ CGA-SBA; REQUIRED 2 ATTEMPTS TO INCREASE TRUNK FLEXION TO STAND. AMBULATED ~ 60' IN ROOM W/ SBA WITHOUT A.D. CHART COLLECTOR REPORTED PT. HAS BEEN AMBULATING TO BATHROOM INDEPENDENTLY. NOTED DECREASED FOOT CLEARANCE W/ GAIT AND SLOW PACE. PT. WAS ABOUT TO SIT IN BEDSIDE RECLINER SUDDENLY REPORTED HE NEEDED TO GO TO BATHROOM AND PROCEEDED TO URINATE ALL THE WAY TO THE TOILET. PT. ABLE TO PERFORM TRANSFER TO TOILET W/ CGA. FLOOR CLEANED BY P.T. AND EVS. PT. PERFORMED SIT TO STAND FROM TOILET W/ CGA. DONNED PULL-UP W/ MIN ASSIST TO FIT AROUND ENLARGED ABDOMEN. PT. LEFT IN BEDSIDE RECLINER W/ CALL LIGHT IN REACH. O2 SATS 96% ON RA AFTER TOILETING. PLAN IS TO D/C HOME W/ DAUGHTHER WHEN STABLE. PT. HAS [employer] WELL. WILL CONT. P.T. INDICATED UNTIL D/C. INSURANCE WILL NOT COVER THERAPY ONLY HH PT. Initialized on 06/23/23 10:35 - END OF NOTE 06/23/23 09:35 Case Management Note by Asya Corea S/W PATIENT- HE CONTINUES TO DENY ANY NEW NEEDS AT TIME OF DC. HE PLANS TO DC HOME TO HIS TO HIS DAUGHTERS TO HIS PLF AT TIME OF DC. Initialized on 06/23/23 09:35 - END OF NOTE Assessment/Plan (1) Atrial fibrillation with RVR Current Visit: Yes Status: Acute Assessment & Plan: Atrial Fibrillation -Type: long-standing persistent -Monitor on Telemetry -Cardiology consulted, appreciate recs -Rate controlled with: Cardizem 120mg po, which is his home medication, patient has been non-compliant with home meds -rate control to target goal HR <85 bpm at rest if symptomatic, goal HR <110 bpm if asymptomatic -[id number]: 3 -On Eliquis for Anticoagulation, will continue -optimize electrolytes for goal of K at 4 and magnesium at 2 06/22: -Cardiology consulted with recs to d/c benazapril and add entresto starting 06/23 06/24 - Controlled HR. Code(s): I48.91 - UNSPECIFIED ATRIAL FIBRILLATION (2) CHF exacerbation Current Visit: Yes Status: Acute Assessment & Plan: HFpEF -Most recent ECHO reviewed from 03/31 EF at 53% -NYHA Class III -Baseline Weight: Unknown -Home Medications: -proBNP 57332 CXR suggestive of cardiogenic overload with superimposed infection bilaterally, physical exam consistent with CHF exacerbation/ patient non-compliant with home medications -Dr. Poe follows patient, consult ordered -Will start IV Lasix 40mg BID -Monitor daily weight and document Strict I/Os -Fluid restriction <1800ml/day and Na Restriction <2g/day - Consider repeat ECHO -Daily BMP to monitor renal function 06/22: -CT reviewed, findings include: 1. New cardiomegaly, large right effusion with atelectasis, and markedly diffuse anasarca favoring cardiac decompensation/CHF versus fluid overload. 2. New fatty hepatomegaly and left renal cyst. 3. Chronic findings including arteriosclerotic disease and chronic bony findings. -Patient on RA, lung sounds clear -Continue diuresis -Echo pending 06/23: -ECHO reviewed impression as follows: IMPRESSION: EF 50% 1) LOW NORMAL CONTRACTILITY OF THE LEFT VENTRICLE. 2) MILD ASYMMETRIC LEFT VENTRICULAR HYPERTROPHY INVOLVING THE LEFT VENTRICULAR SEPTUM. 3) MILD LEFT VENTRICULAR DILATATION. 4) SEVERE LEFT ATRIAL DILATATION. 5) MILD AORTIC REGURGITATION. 6) MODERATE TO SEVERE MITRAL REGURGITATION. 7) MODERATE TRICUSPID REGURGITATION. 8) MODERATE PULMONARY HYPERTENSION. 9) MODERATE PULMONIC REGURGITATION -Increase lasix to 80mg BID 06/24 - SOB improved overnight with addition of metolazone - Lasix changed to home dose of 80mg PO BID - no edmea in leg, edema of abd. improved. Code(s): I50.9 - HEART FAILURE, UNSPECIFIED (3) Elevated troponin Current Visit: Yes Status: Acute Assessment & Plan: - EKG reviewed noting AFIB, nonspecific ST changes in the lateral lead, no evidence of acute ischemic changes -Continue Tele - cardiology consulted Code(s): R77.8 - OTHER SPECIFIED ABNORMALITIES OF PLASMA PROTEINS (4) Hyperglycemia Current Visit: Yes Status: Acute Assessment & Plan: - uncontrolled - A1C 8.88 07/07 -Humalog SSI moderate - hold metformin Code(s): R73.9 - HYPERGLYCEMIA, UNSPECIFIED (5) Infiltrate of both lungs present on imaging study Current Visit: Yes Status: Acute Assessment & Plan: CXR reviewed showing bilateral patchy opacities, will continue Rocephin/azithromycin, convert to po on discharge 06/23: -CT imaging showing large right pleural effusion with diminished breath sounds, will consult IR for possible thoracentesis -Hold eliquis - resume after thoracentesis Code(s): R91.8 - OTHER NONSPECIFIC ABNORMAL FINDING OF LUNG FIELD (6) Noncompliance with medication regimen Current Visit: Yes Status: Acute Assessment & Plan: -noted, see about [facility] services Code(s): Z91.148 - PATIENT'S OTHER NONCOMPL WITH MEDS REGIMEN FOR OTHER REASON (7) Hypertension Current Visit: Yes Status: Chronic Qualifiers: Assessment & Plan: -Stable continue to monitor 06/24 - Per Cardiology decrease hydralizine to 25mg BID - Per MAR clonidine is held often - Continue Lopressor 50mg BID - Per cardiology Entresto may need to be cut in 1/2 if BP continues to drop. Code(s): I10 - ESSENTIAL (PRIMARY) HYPERTENSION (8) Anasarca Current Visit: No Status: Acute Assessment & Plan: -US abdomen results showing no free fluid, CT with the following findings: Impression: 1. New cardiomegaly, large right effusion with atelectasis, and markedly diffuse anasarca favoring cardiac decompensation/CHF versus fluid overload. 2. New fatty hepatomegaly and left renal cyst. 3. Chronic findings including arteriosclerotic disease and chronic bony findings. -Continue diuresis 06/23: -CT scan noting New cardiomegaly, large right effusion with atelectasis, and markedly diffuse anasarca favoring cardiac decompensation/CHF versus fluid overload. 2. New fatty hepatomegaly and left renal cyst. 3. Chronic findings including arteriosclerotic disease and chronic bony findings. 06/24 - improved - Continue home dose of Lasix Code(s): R60.1 - GENERALIZED EDEMA (9) DM (diabetes mellitus) Current Visit: No Status: Acute Qualifiers: Diabetes mellitus type: type 2 Diabetes mellitus skilled nursing insulin use: unspecified skilled nursing insulin use status Assessment & Plan: -see hyperglycemia Code(s): E11.9 - TYPE 2 DIABETES MELLITUS WITHOUT COMPLICATIONS (10) Elevated brain natriuretic peptide (BNP) level Current Visit: No Status: Acute Assessment & Plan: -see CHF exacerbation - 06/24 - improving Code(s): R79.89 - OTHER SPECIFIED ABNORMAL FINDINGS OF BLOOD CHEMISTRY (11) Hyperlipidemia Current Visit: Yes Status: Acute Assessment & Plan: - Continue Zocor - D/C plan tomorrow - Code status: Full - DVT: Eliquis- held - Code(s): E78.5 - HYPERLIPIDEMIA, UNSPECIFIED
[2023-06-24 07:37] LABS: INR 1.26 (0.8-3.0); PROTIME 13.5 SECONDS (9.4-12.5)
[2023-06-24] MEDS: Lasix 40 MG/4 ML IV SCH (10:19)
[2023-06-24] MEDS: Cardizem CD PO SCH (11:33)
[2023-06-24] MEDS: Klor Con PO SCH ×2 (11:33→17:14)
[2023-06-24] MEDS: ENTRESTO 49 MG-51 MG TABLET PO SCH ×2 (11:33→23:20)
[2023-06-24] MEDS: Cymbalta 30 MG Capsule PO SCH (11:33)
[2023-06-24] MEDS: NEURONTIN PO SCH ×2 (11:34→23:07)
[2023-06-24] MEDS: MAG-OX 400 PO SCH ×3 (11:34→23:07)
[2023-06-24] MEDS: Lopressor 50 MG PO SCH ×2 (11:34→23:20)
[2023-06-24] MEDS: JARDIANCE PO SCH (11:34)
[2023-06-24] MEDS: Apresoline 25 MG TABLET PO SCH ×2 (11:34→23:20)
[2023-06-24] MEDS: CLONIDINE 0.1 MG TABLET PO SCH ×3 (11:36→23:20)
--- NOTE | 2023-06-24 11:44 | XRAY ---
Indication: Status post right thoracentesis. Comparison: June 20, 2023 Portable chest obtained in expiration demonstrates near complete clearing right effusion consistent with thoracentesis. No obvious pneumothorax. Remaining lungs clear again with incidental tiny left base calcified granuloma. Heart remains enlarged.
--- NOTE | 2023-06-24 11:46 | XRAY ---
Indication: Right pleural fluid. Procedure was performed bedside. Informed consent obtained. Initial ultrasound of the right back performed for localization. Largest pocket lower chest. The right back was prepped and draped in sterile fashion. 1% lidocaine plain was used for local anesthesia. Tiny skin incision made. 5 [employer] paracentesis needle/catheter was then percutaneously inserted. Once fluid was aspirating, the outer catheter was then advanced with the inner needle removed. Catheter was connected to a Vacutainer. Approximately 2.7 L of tomato juice colored fluid aspirated and was disposed of properly. Approximately 50 cc was collected and sent to laboratory for analysis as ordered by the clinician. Repeat sonogram demonstrates near complete aspiration. Catheter removed. Hemostasis achieved using digital pressure over the puncture site. Band-Aid applied over the puncture site. Postthoracentesis chest radiograph pending. Impression: Technically successful ultrasound guided right thoracentesis for both diagnostic and therapeutic purpose. No immediate complications or blood loss.
[2023-06-24 11:53] LABS: BODY FLUID CELL COUNT RBC 0.012 x10^6u/L; BODY FLUID CELL COUNT WBC 0.275 x10^3u/L
[2023-06-24] MEDS: Zithromax 500 MG/ 250 ML NaCl Premix 500 MG/250 ML IVPB IV SCH (12:26)
[2023-06-24 12:27] LABS: BF-COLOR PINK (COLORLESS)
[2023-06-24 12:29] LABS: BF SPECIMEN TYPE PLEURAL
[2023-06-24 12:30] LABS: BF CLARITY CLOUDY (CLEAR)
[2023-06-24] MEDS: Lasix 40 MG PO SCH (17:13)
[2023-06-24] MEDS: HUMALOG SQ PRN ×2 (17:15→23:21)
[2023-06-24] MEDS: ROCEPHIN 1 Gm-D5w 50 ml Bag** 1 G/50 ML IVPB IV SCH (23:06)
[2023-06-24] MEDS: Flomax 0.4 MG PO SCH (23:07)
[2023-06-24] MEDS: ZOCOR 20MG PO SCH (23:08)
[2023-06-25 06:37] LABS: Hematocrit 47.8 % (42-50); Hemoglobin 15.4 g/dL (12.5-18.0); Mean Cell Volume 88.8 fL (78-100); Mean Corpuscular Hemoglobin 28.6 pg (26-32); Mean Corpuscular Hgb Concent. 32.2 g/dL (32-36); Platelet Count 199 x10^3/uL (150-450); Red Blood Count 5.38 x10^6/uL (4.1-5.6); Red Cell Distribution Width 16.1 % (11.5-14.0); White Blood Count 5.5 x10^3/uL (4.0-10.5)
[2023-06-25 06:40] VITALS: RESP 18
[2023-06-25 07:05] LABS: ALKALINE PHOSPHATASE 225 U/L (38-126); ANION GAP 9.1 MEQ/L (5-15); BLOOD UREA NITROGEN 24 mg/dL (9-20); CHLORIDE 99 mmol/L (98-107); Calcium 7.9 mg/dL (8.4-10.2); Carbon Dioxide 32 mmol/L (22-30); EST GLOMERULAR FILTRATION RATE > 60.0 ML/MIN; Glucose 178 mg/dL (74-106); Potassium 3.7 mmol/L (3.5-5.1); SGOT/AST 40 U/L (17-59); SGPT/ALT 23 U/L (0-50); SODIUM 135 mmol/L (137-145); Total Protein 6.3 g/dL (6.3-8.2)
[2023-06-25 07:42] VITALS: O2SAT 97
--- NOTE | 2023-06-25 09:16 | PCM.DS ---
Discharge Summary Date of Admission: 06/21/23 07:25 Date of Discharge: 06/25/23 Admitting Physician: PRETTY REYNOLDS MD Consults: Consults on Case 06/21/23 08:02 Consult Cardiology ROUTINE Primary Care Provider: IRVING HENRY Allergies Allergies No Known Drug Allergies Allergy (Verified 06/21/23 02:16) Hospital Summary - Hospital Course Hospital Course: Mr. Cornejo is a 63 year old with PMHX of TIA, AFIB (on cardizem/lopressor/Eliquis), HTN, DM 2, anxiety, depression, and non-compliance with medication regimen who presented to ER 06/21/23 with complaints of shortness of breath and BLE edema admitted for weakness, CHF exacerbation, pneumonia, AFIB RVR, and hypokalemia. Patient was provided IV lasix, hydralazine, metoprolol, cardizem , potassium, and ceftriaxone in the with noted improvement but stated he was too weak to return home. HR is now controlled. Lowwer abdominal pain has improved since admission and CT shows anasarca. US unremarkable. CT showing cardiomegaly, right effusion with atelectasis, diffuse anasarca consistent with CHF vs fluid overload, fatty hepatomegaly, and other chronic findings. Patient endorses improvement of symptoms, still with weakness and shortness of breath at times, no longer with abdominal pain, working with PT. He had a thoracentesis yesterday and pt feels much starla since then. Denies fever, cough,cp, BABB, dizziness, N/V/D. - Vitals & Intake/Output Vital Signs: Vital Signs Temperature 97.7 F 06/25/23 07:41 Pulse Rate 78 06/25/23 07:41 Respiratory Rate 18 06/25/23 07:41 Blood Pressure 104/58 06/25/23 07:41 O2 Sat by Pulse Oximetry 97 06/25/23 07:41 Intake & Output: Intake & Output 06/22/23 06/23/23 06/24/23 06/25/23 11:59 11:59 11:59 11:59 Intake Total 1966 2099 2359 993 Output Total 3735 100 1 Balance -1761999 2358 993 Weight 114.3 kg 114.4 kg 113.9 kg - Lab Result Diagrams: 06/25/23 04:00 06/25/23 05:00 Lab Results-Last 24 Hrs: Lab Results-Last 24 Hours 06/24/23 06/24/23 06/24/23 Range/Units 11:35 15:04 22:02 Specimen Type PLEURAL WBC (4.0-10.5) x10^3/uL RBC (4.1-5.6) x10^6/uL Hgb (12.5-18.0) g/dL Hct (42-50) % MCV (78-100) fL MCH (26-32) pg MCHC (32-36) g/dL RDW (11.5-14.0) % Plt Count (150-450) x10^3/uL MPV (7.5-11.0) fL Sodium (137-145) mmol/L Potassium (3.5-5.1) mmol/L Chloride (98-107) mmol/L Carbon Dioxide (22-30) mmol/L Anion Gap (5-15) MEQ/L BUN (9-20) mg/dL Creatinine (0.66-1.25) mg/dL Estimated GFR ML/MIN Glucose (74-106) mg/dL POC Glucometer 233 H 242 H (74 to 106) mg/dL Calcium (8.4-10.2) mg/dL Total Bilirubin (0.2-1.3) mg/dL AST (17-59) U/L ALT (0-50) U/L Alkaline Phosphatase (38-126) U/L Serum Total Protein (6.3-8.2) g/dL Albumin (3.5-5.0) g/dL Fluid Color PINK A (COLORLESS) Fluid Clarity CLOUDY A (CLEAR) Fluid WBC (Auto) 0.275 x10^3u/L Fluid RBC (Auto) 0.012 x10^6u/L Fld Polynuclear WBCs % 6.200 % Fl Mononuclear % Auto 93.800 % 06/25/23 06/25/23 06/25/23 Range/Units 04:00 05:00 07:38 Specimen Type WBC 5.5 (4.0-10.5) x10^3/uL RBC 5.38 (4.1-5.6) x10^6/uL Hgb 15.4 (12.5-18.0) g/dL Hct 47.8 (42-50) % MCV 88.8 (78-100) fL MCH 28.6 (26-32) pg MCHC 32.2 (32-36) g/dL RDW 16.1 H (11.5-14.0) % Plt Count 199 (150-450) x10^3/uL MPV 12.0 H (7.5-11.0) fL Sodium 135 L (137-145) mmol/L Potassium 3.7 (3.5-5.1) mmol/L Chloride 99 (98-107) mmol/L Carbon Dioxide 32 H (22-30) mmol/L Anion Gap 9.1 (5-15) MEQ/L BUN 24 H (9-20) mg/dL Creatinine 1.20 (0.66-1.25) mg/dL Estimated GFR > 60.0 ML/MIN Glucose 178 H (74-106) mg/dL POC Glucometer 208 H (74 to 106) mg/dL Calcium 7.9 L (8.4-10.2) mg/dL Total Bilirubin 0.80 (0.2-1.3) mg/dL AST 40 (17-59) U/L ALT 23 (0-50) U/L Alkaline Phosphatase 225 H (38-126) U/L Serum Total Protein 6.3 (6.3-8.2) g/dL Albumin 3.0 L (3.5-5.0) g/dL Fluid Color (COLORLESS) Fluid Clarity (CLEAR) Fluid WBC (Auto) x10^3u/L Fluid RBC (Auto) x10^6u/L Fld Polynuclear WBCs % % Fl Mononuclear % Auto % Micro Results-Entire Visit: Microbiology 06/22/23 Unknown Urine Culture - Final Clean Catch Midstream MIXED SENAIT; 3 OR MORE TYPES. NO PREDOMINANT ORGANISM. NO FURTHER WORKUP. PLEASE RESUBMIT IF CLINICALLY INDICATED. 06/21/23 00:04 Urine Culture - Final Clean Catch Midstream NO GROWTH Accuchecks Date 06/25/23 Date 06/24/23 Date 06/24/23 Time 07:41 Time 15:31 Time 11:45 - Radiology Exams Ordered Rad Exams-Entire Visit: Radiology Procedures Category Date Time Status CHEST 1 VIEW (PORTABLE) Stat Exams 06/24/23 11:17 Completed THORACENTESIS [US] Urgent Exams 06/24/23 09:00 Completed - Procedures and Test Procedures and Tests throughout Hospitalization: Therapy Orders & Screens 06/21/23 02:07 EKG REPEAT IN AM Comment: Oxygen Nasal Cannula 2 lpm Comment: Respiratory Therapy Consult ONCE Comment: Reason For Exam: 06/21/23 03:04 Smoking Cessation Education ONCE Comment: Diagnosis: A FIB WITH RVR, CHF EXACERBATION, PULMONARY INFILTRATE, HYPOKALEMIA, ELEVAT Smoking Status: Current every day smoker How long have you smoked: 30 YEARS Have you smoked in the past 12 months: Yes Approximately how many cigarettes per day: 3 Do you dip or chew tobacco: No 06/21/23 03:37 PT Eval & Treat (MD Order) ONCE Reason for Eval:: weakness, need for home health Diagnosis: A FIB WITH RVR, CHF EXACERBATION, PULMONARY INFILTRATE, HYPOKALEMIA, ELEVAT 06/21/23 05:08 Respiratory Therapy Assessment DAILY Comment: Diagnosis: A FIB WITH RVR, CHF EXACERBATION, PULMONARY INFILTRATE, HYPOKALEMIA, ELEVAT Discharge Exam General Appearance: no apparent distress, alert Neurologic Exam: alert, oriented x 3, cooperative, normal mood/affect, nml cerebellar function, sensation nml, No motor deficits Eye Exam: PERRL, EOMI, eyes nml inspection Ears, Nose, Throat Exam: normal ENT inspection, pharynx normal, moist mucous membranes Neck Exam: normal inspection, non-tender, supple, full range of motion Respiratory Exam: normal breath sounds, lungs clear, No respiratory distress Cardiovascular Exam: regular rate/rhythm, normal heart sounds Gastrointestinal/Abdomen Exam: soft, No tenderness, No mass Male Genitalia Exam: deferred Rectal Exam: deferred Back Exam: normal inspection, normal range of motion, No CVA tenderness, No vertebral tenderness Extremity Exam: normal inspection, normal range of motion Skin Exam: normal color, warm, dry Final Diagnosis/Problem List - Final Discharge Diagnosis/Problem (1) Atrial fibrillation with RVR Current Visit: Yes Status: Acute Assessment & Plan: Atrial Fibrillation -Type: long-standing persistent -Monitor on Telemetry -Cardiology consulted, appreciate recs -Rate controlled with: Cardizem 120mg po, which is his home medication, patient has been non-compliant with home meds -rate control to target goal HR <85 bpm at rest if symptomatic, goal HR <110 bpm if asymptomatic -[id number]: 3 -On Eliquis for Anticoagulation, will continue -optimize electrolytes for goal of K at 4 and magnesium at 2 06/22: -Cardiology consulted with recs to d/c benazapril and add entresto starting 06/23 06/24 - Controlled HR. Code(s): I48.91 - UNSPECIFIED ATRIAL FIBRILLATION (2) CHF exacerbation Current Visit: Yes Status: Acute Assessment & Plan: HFpEF -Most recent ECHO reviewed from 03/31 EF at 53% -NYHA Class III -Baseline Weight: Unknown -Home Medications: -proBNP 96484 CXR suggestive of cardiogenic overload with superimposed infe ction bilaterally, physical exam consistent with CHF exacerbation/ patient non- compliant with home medications -Dr. Poe follows patient, consult ordered -Will start IV Lasix 40mg BID -Monitor daily weight and document Strict I/Os -Fluid restriction <1800ml/day and Na Restriction <2g/day - Consider repeat ECHO -Daily BMP to monitor renal function 06/22: -CT reviewed, findings include: 1. New cardiomegaly, large right effusion with atelectasis, and markedly diffuse anasarca favoring cardiac decompensation/CHF versus fluid overload. 2. New fatty hepatomegaly and left renal cyst. 3. Chronic findings including arteriosclerotic disease and chronic bony findings. -Patient on RA, lung sounds clear -Continue diuresis -Echo pending 06/23: -ECHO reviewed impression as follows: IMPRESSION: EF 50% 1) LOW NORMAL CONTRACTILITY OF THE LEFT VENTRICLE. 2) MILD ASYMMETRIC LEFT VENTRICULAR HYPERTROPHY INVOLVING THE LEFT VENTRICULAR SEPTUM. 3) MILD LEFT VENTRICULAR DILATATION. 4) SEVERE LEFT ATRIAL DILATATION. 5) MILD AORTIC REGURGITATION. 6) MODERATE TO SEVERE MITRAL REGURGITATION. 7) MODERATE TRICUSPID REGURGITATION. 8) MODERATE PULMONARY HYPERTENSION. 9) MODERATE PULMONIC REGURGITATION -Increase lasix to 80mg BID 06/24 - SOB improved overnight with addition of metolazone - Lasix changed to home dose of 80mg PO BID - no edmea in leg, edema of abd. improved. Code(s): I50.9 - HEART FAILURE, UNSPECIFIED (3) Elevated troponin Current Visit: Yes Status: Acute Assessment & Plan: EKG reviewed noting AFIB, nonspecific ST changes in the lateral lead, no evidence of acute ischemic changes -Continue Tele - cardiology consulted Code(s): R77.8 - OTHER SPECIFIED ABNORMALITIES OF PLASMA PROTEINS (4) Hyperglycemia Current Visit: Yes Status: Acute Assessment & Plan: - uncontrolled - A1C 8.88 07/07 -Humalog SSI moderate - hold metformin- continue OP Code(s): R73.9 - HYPERGLYCEMIA, UNSPECIFIED (5) Infiltrate of both lungs present on imaging study Current Visit: Yes Status: Acute Assessment & Plan: CXR reviewed showing bilateral patchy opacities, will continue Rocephin/azithromycin, convert to po on discharge 06/23: -CT imaging showing large right pleural effusion with diminished breath sounds, will consult IR for possible thoracentesis -Hold eliquis - resume after thoracentesis 06/25 - Continued Eliquis - Will Continue OP antibiotics Code(s): R91.8 - OTHER NONSPECIFIC ABNORMAL FINDING OF LUNG FIELD (6) Noncompliance with medication regimen Current Visit: Yes Status: Acute Assessment & Plan: -noted, see about [facility] services Code(s): Z91.148 - PATIENT'S OTHER NONCOMPL WITH MEDS REGIMEN FOR OTHER REASON (7) Hypertension Current Visit: Yes Status: Chronic Assessment & Plan: -Stable continue to monitor 06/24 - Per Cardiology decrease hydralizine to 25mg BID - Per MAR clonidine is held often - Continue Lopressor 50mg BID - Per cardiology Entresto may need to be cut in 10/11 if BP continues to drop. Code(s): I10 - ESSENTIAL (PRIMARY) HYPERTENSION (8) Anasarca Current Visit: No Status: Acute Assessment & Plan: -US abdomen results showing no free fluid, CT with the following findings: Impression: 1. New cardiomegaly, large right effusion with atelectasis, and markedly diffuse anasarca favoring cardiac decompensation/CHF versus fluid overload. 2. New fatty hepatomegaly and left renal cyst. 3. Chronic findings including arteriosclerotic disease and chronic bony findings. -Continue diuresis 06/23: -CT scan noting New cardiomegaly, large right effusion with atelectasis, and markedly diffuse anasarca favoring cardiac decompensation/CHF versus fluid overload. 2. New fatty hepatomegaly and left renal cyst. 3. Chronic findings including arteriosclerotic disease and chronic bony findings. 06/24 - improved - Continue home dose of Lasix Code(s): R60.1 - GENERALIZED EDEMA (9) DM (diabetes mellitus) Current Visit: No Status: Acute Assessment & Plan: -see hyperglycemia Code(s): E11.9 - TYPE 2 DIABETES MELLITUS WITHOUT COMPLICATIONS (10) Elevated brain natriuretic peptide (BNP) level Current Visit: No Status: Acute Assessment & Plan: -see CHF exacerbation - 06/24 - improving Code(s): R79.89 - OTHER SPECIFIED ABNORMAL FINDINGS OF BLOOD CHEMISTRY (11) Hyperlipidemia Current Visit: Yes Status: Acute Assessment & Plan: - Continue Zocor - D/C plan tomorrow - Code status: Full - DVT: Eliquis- held 06/25 - eliquis restarted Code(s): E78.5 - HYPERLIPIDEMIA, UNSPECIFIED - Discharge Discharge Date: 06/25/23 (home with daughter) Disposition: HOME HEALTH SERVICE Condition: Fair Prescriptions: New Sacubitril/Valsartan [Entresto 49 mg-51 mg Tablet] 1 tablet PO BID 30 Days #60 tablet Continue Atorvastatin Calcium [Lipitor 20MG Tablet] 20 mg PO HS Duloxetine HCl 30 mg [Cymbalta 30 MG Capsule] 60 mg PO DAILY Benazepril HCl 40 mg PO DAILY Metformin HCl 1000 mg [Glucophage 1000 MG] 500 mg PO BID Empagliflozin [Jardiance] 25 mg PO DAILY Tamsulosin HCl 0.4 mg [Flomax 0.4 MG] 0.4 mg PO HS Potassium Chloride Tab* [Klor Con] 20 meq PO EVENING MEAL Potassium Chloride 40 meq PO DAILY Furosemide 20 mg [Lasix 20 mg] 80 mg PO BID Apixaban [Eliquis 2.5 mg Tablet] 5 mg PO BID Magnesium Oxide 400 mg [Mag-Ox 400] 400 mg PO TID Metoprolol Tartrate 50 mg [Lopressor 50 MG] 50 mg PO BID Gabapentin 600 mg PO BID Clonidine HCl 0.1 mg [Clonidine 0.1 mg Tablet] 0.2 mg PO TID Diltiazem HCl [Cartia Xt] 120 mg PO DAILY Hydralazine HCl 50 mg PO BID Additional Instructions: A HOME HEALTHCARE HAS BEEN ARRANGE FOR YOU. THEY WILL CONTACT YOU TO ARRANGE A TIME TO COME SEE YOU. THEIR PHONE NUMBER IS [phone]. Follow up with cardiology and PCP this week. Follow up with PCP regarding thoracic culture Follow up with: IRVING HENRY MD [Primary Care Provider] -
[2023-06-25] MEDS: Zithromax 500 MG/ 250 ML NaCl Premix 500 MG/250 ML IVPB IV SCH (09:51)
[2023-06-25] MEDS: Klor Con PO SCH (09:57)
[2023-06-25] MEDS: NEURONTIN PO SCH (09:58)
[2023-06-25] MEDS: MAG-OX 400 PO SCH ×2 (09:59→16:19)
[2023-06-25] MEDS: ENTRESTO 49 MG-51 MG TABLET PO SCH (09:59)
[2023-06-25] MEDS: Cymbalta 30 MG Capsule PO SCH (09:59)
[2023-06-25] MEDS: Lasix 40 MG PO SCH ×2 (09:59→16:19)
[2023-06-25] MEDS: Lopressor 50 MG PO SCH (10:00)
[2023-06-25] MEDS: HUMALOG SQ PRN (10:00)
[2023-06-25] MEDS: Cardizem CD PO SCH (10:00)
[2023-06-25] MEDS: CLONIDINE 0.1 MG TABLET PO SCH ×2 (10:02→16:16)
[2023-06-25] MEDS: Apresoline 25 MG TABLET PO SCH (10:02)
[2023-06-25] MEDS: JARDIANCE PO SCH (10:06)
[2023-06-25 16:10] VITALS: BP 107/71; PULSE 71; TEMP 97.7
== END 2023-06-25 18:11 | disposition home health service (06) | DRG 310 ==
LOC: ED 22:06 → MED SURG 06-21 02:04 → OBSVTOIN 06-21 07:25
PROVIDERS: ADMIT Internal Medicine; ATTEND Internal Medicine
DX: I48.20 Chronic atrial fibrillation, unspecified (principal); I11.0 Hypertensive heart disease with heart failure; I50.9 Heart failure, unspecified; R77.8 Other specified abnormalities of plasma proteins; R91.8 Other nonspecific abnormal finding of lung field; Z91.148 Patient's other noncompliance with medication regimen for other reason; R60.1 Generalized edema; E11.65 Type 2 diabetes mellitus with hyperglycemia; R79.89 Other specified abnormal findings of blood chemistry; E78.5 Hyperlipidemia, unspecified; Z79.01 Long term (current) use of anticoagulants; Z79.899 Other long term (current) drug therapy; Z20.828 Contact with and (suspected) exposure to other viral communicable diseases; Z72.0 Tobacco use
CPT/HCPCS: 0241U; 32555; 36000; 36415; 51702; 71045; 74177; 76705; 80053; 81001; 82140; 82947; 83036; 83735; 83880; 84132; 84484; 85025; 85027; 85610; 87070; 87086; 89051; 93005; 93041; 93306; 94760; 94762; 96365; 96368; 96374; 96375; 96376; 97161; 97530; 99285; 99291; 87205; J0360; J0456; J0696; J1817; J1940; J3480; Q3014; A9270-GY

== ENCOUNTER 2023-08-15 19:13 | Observation (INO) | payer OTHER ==
[2023-08-15] MEDS ORDERED: HUMALOG SQ PRN (20:32)
--- NOTE | 2023-08-15 20:42 | PCM.HP ---
History of Present Illness - Chief Complaint Chief Complaint: CHF History of Present Illness: 63 yo wm with hx of CHF(diastolic), Severe MR, PAH, Afib, HTN admitted with progressive sob and abdominal swelling. Pt was admittted approx 6 weeks ago for similar sxs. At that admit pt was diuresed and had a right sided thoracentesis. Since d/c pt has been compliant with medications. He has progressively had sob and worsening lower extremity edema/abd girth. Pt was running out of medications thus attempted visit with PCP. Pt had labs and was admitted. Pt has not seen cards since d/c and in last year. Pt has put on 30-40lbs in last 6 weeks. Pt denies chest pain or abd pain. - Review of Systems Constitutional: No Symptoms Eyes: No Symptoms Ears, Nose, & Throat: No Symptoms Respiratory: Short Of Breath Cardiac: Edema Abdominal/Gastrointestinal: Other (abd distension) Musculoskeletal: No Symptoms Neurological: No Symptoms Psychological: No Symptoms Endocrine: No Symptoms Hematologic/Lymphatic: No Symptoms Immunological/Allergic: No Symptoms Medications & Allergies Home Medications: Home Medication List Atorvastatin Calcium [Lipitor 20MG Tablet] 20 mg PO HS 08/12/16 [History Confirmed 08/15/23] Duloxetine HCl 30 mg [Cymbalta 30 MG Capsule] 60 mg PO DAILY 08/12/16 [History Confirmed 08/15/23] Empagliflozin [Jardiance] 25 mg PO DAILY 08/12/16 [History Confirmed 08/15/23] Metformin HCl 1000 mg [Glucophage 1000 MG] 500 mg PO BID 08/12/16 [History Confirmed 08/15/23] Tamsulosin HCl 0.4 mg [Flomax 0.4 MG] 0.4 mg PO HS 03/11/22 [History Confirmed 08/15/23] Apixaban [Eliquis 2.5 mg Tablet] 5 mg PO BID 08/31/22 [History Confirmed 08/15/23] Furosemide 20 mg [Lasix 20 mg] 80 mg PO BID 08/31/22 [History Confirmed 08/15/23] Magnesium Oxide 400 mg [Mag-Ox 400] 400 mg PO TID 08/31/22 [History Confirmed 08/15/23] Potassium Chloride 40 meq PO DAILY 08/31/22 [History Confirmed 08/15/23] Potassium Chloride Tab* [Klor Con] 20 meq PO EVENING MEAL 08/31/22 [History Confirmed 08/15/23] Clonidine HCl 0.1 mg [Clonidine 0.1 mg Tablet] 0.2 mg PO TID 06/20/23 [History Confirmed 08/15/23] Diltiazem HCl [Cartia Xt] 120 mg PO DAILY 06/20/23 [History Confirmed 08/15/23] Gabapentin 600 mg PO BID 06/20/23 [History Confirmed 08/15/23] Hydralazine HCl 50 mg PO BID 06/20/23 [History Confirmed 08/15/23] Metoprolol Tartrate 50 mg [Lopressor 50 MG] 50 mg PO BID 06/20/23 [History Confirmed 08/15/23] Sacubitril/Valsartan [Entresto 49 mg-51 mg Tablet] 1 tablet PO BID 30 Days #60 tablet 06/25/23 [Rx Confirmed 08/15/23] Allergies/Adverse Reactions: Allergies Allergy/AdvReac Type Severity Reaction Status Date / Time No Known Drug Allergies Allergy Verified 06/21/23 02:16 - Past Medical History Past Medical History: Yes Neurological History: TIA ENT History: Other Cardiac History: Arrhythmia, Other Respiratory History: No Pertinent History Endocrine Medical History: Diabetes Type II Musculoskelatal History: No Pertinent History GI Medical History: No Pertinent History History: No Pertinent History Pyscho-Social History: Anxiety, Depression Male Reproductive Disorders: No Pertinent History Comment: R SHOULDER INSTABILITY, A FIB - Past Surgical History Past Surgical History: Yes Neuro Surgical History: No Pertinent History Cardiac History: No Pertinent History Respiratory Surgery: No Pertinent History GI Surgical History: No Pertinent History Genitourinary Surgical Hx: No Pertinent History Musculskeletal Surgical Hx: Orthopedic Surgery Male Surgical History: No Pertinent History Other Surgical History: RIGHT shoulder - Social History Smoking Status: Current every day smoker How long have you smoked: 40 Exposure to second hand smoke: Yes Alcohol: Rarely Drug Use: none Significant Family History: no pertinent family hx - Physical Exam Vital Signs: Vital Signs - 24 hr Temp Pulse Resp BP Pulse Ox 08/15/23 19:58 97.3 F 76 28 H 154/86 97 General Appearance: mild distress Neurologic Exam: alert, oriented x 3 Eye Exam: PERRL/EOMI Ears, Nose, Throat Exam: TMs normal, moist mucous membranes Respiratory Exam: diminished breath sounds (in right base) Cardiovascular Exam: regular rate/rhythm, murmur Gastrointestinal/Abdomen Exam: soft, normal bowel sounds Extremity Exam: pedal edema Skin Exam: normal color Results - Radiology Impressions Radiology Exams & Impressions: Radiology Procedures Category Date Time Status THORACENTESIS [US] Routine Exams 08/16/23 08:00 Ordered - Other Procedures and Tests Respiratory Therapy 08/15/23 20:31 RT Screen per Nursing Assess ONCE Smoking Cessation Education ONCE Assessment/Plan (1) Acute CHF (congestive heart failure) Current Visit: No Status: Acute Assessment & Plan: 63 yo wm with hx of CHF, MR, Afib admitted with decompensated heart failure. 1. CHF exac: diastolic HF + Severe MR. Most of sxs are from PAH. Re-start IV diuresis. Continue RPP control. Will continue dilt and metop for rate control of afib. 2. Mitral Regurgitation: severe on last echo. Suspect etiology of sxs and PAH. Suspect needs higher level of care for RHC/LHC and eval of options for valve. Defer to cards. 3. Right pleural effusion: large. Re-accumulated since last admit. Thoracentesis ordered. Lovenox tonight. Held in am for possible procedure. 4. HTN: continue outpt regimen. Wean off clonidine during this admit 5. DM: Continue metformin. Continue SS. 6. Afib: rate controlled. Appears in NSR on exam. Check ECG. Continue dilt and metoprolol. Hold apixiban. 1 dose of lovenox ordered for tonight. 7. PX: Lovenox 8. Full Code Graham Ball MD entire encounter done via telemedicine Code(s): I50.9 - HEART FAILURE, UNSPECIFIED Telemedicine Encounter - Telemedicine Encounter Telemedicine Encounter: The entirety of this encounter was performed via Telemedicine"
[2023-08-15] MEDS ORDERED: ENOXAPARIN SODIUM SQ SCH (20:45)
[2023-08-15 20:55] LABS: ANION GAP 17.1 MEQ/L (5-15); Calcium 9.7 mg/dL (8.4-10.2); Creatinine 1 1.21 mg/dL (0.66-1.25); EST GLOMERULAR FILTRATION RATE 68.1 ML/MIN
[2023-08-15] MEDS ORDERED: NEURONTIN ONE (20:55)
[2023-08-15] MEDS ORDERED: Apresoline 25 MG TABLET ONE (20:55)
[2023-08-15] MEDS ORDERED: ZOCOR 20MG ONE (20:56)
[2023-08-15] MEDS ORDERED: Glucophage 500 MG ONE (20:56)
[2023-08-15] MEDS: Furosemide 100mg/10 ml Vial IV SCH (21:01)
[2023-08-15] MEDS: ENTRESTO 49 MG-51 MG TABLET PO SCH (21:07)
[2023-08-15] MEDS: CLONIDINE 0.1 MG TABLET PO SCH (21:07)
[2023-08-15] MEDS: Lopressor 50 MG PO SCH (21:07)
[2023-08-15] MEDS: MAG-OX 400 PO SCH (21:08)
[2023-08-15] MEDS ORDERED: NON-FORMULARY ITEM (Metformin Hcl 1000 Mg [Glucophage 1000 Mg] 1,000 MG Tablet) PO SCH (22:00)
[2023-08-15] MEDS ORDERED: NON-FORMULARY ITEM (Hydralazine Hcl [Hydralazine Hcl] 50 MG Tablet) PO SCH (22:00)
[2023-08-15] MEDS ORDERED: NON-FORMULARY ITEM (Atorvastatin Calcium 20 MG Tab) PO SCH (22:00)
[2023-08-15] MEDS ORDERED: NON-FORMULARY ITEM (Gabapentin [Gabapentin] 600 MG Tablet) PO SCH (22:00)
[2023-08-15] MEDS ORDERED: ZOCOR 20MG PO SCH (22:00)
[2023-08-15] MEDS ORDERED: Flomax 0.4 MG PO SCH (22:00)
[2023-08-16 04:53] LABS: Absolute Neutrophil Ct (ANC) 3.61 x10^3/uL (1.4-6.9); BASOPHIL % 1.7 % (0.0-0.4); Eosinophil % 1.2 % (0.00-5.0); Eosinophil (Absolute #) 0.07 x10^3/uL (0-0.5); Hematocrit 45.1 % (42-50); Hemoglobin 14.4 g/dL (12.5-18.0); IMMATURE GRAN # 0.03 x10^3u/L (0.00-0.03); IMMATURE GRAN % 0.5 % (0.00-0.4); Lymphocyte (Absolute #) 1.43 x10^3/uL (1.0-4.6); Lymphocytes % 24.8 % (24.0-44.0); Mean Cell Volume 90.2 fL (78-100); Mean Corpuscular Hemoglobin 28.8 pg (26-32); Mean Corpuscular Hgb Concent. 31.9 g/dL (32-36); Mean Platelet Volume 12.1 fL (7.5-11.0); Monocyte (Absolute #) 0.52 x10^3/uL (0.0-1.3); Neutrophil % 62.8 % (36.0-66.0); Platelet Count 202 x10^3/uL (150-450); Red Cell Distribution Width 16.9 % (11.5-14.0); White Blood Count 5.8 x10^3/uL (4.0-10.5)
[2023-08-16 05:09] LABS: ANION GAP 14.2 MEQ/L (5-15); Calcium 9.2 mg/dL (8.4-10.2); Creatinine 1 1.04 mg/dL (0.66-1.25); EST GLOMERULAR FILTRATION RATE 81.7 ML/MIN; Potassium 3.2 mmol/L (3.5-5.1)
[2023-08-16] MEDS: Furosemide 100mg/10 ml Vial IV SCH ×2 (05:59→14:24)
[2023-08-16] MEDS ORDERED: Glucophage 500 MG PO SCH (08:00)
[2023-08-16] MEDS ORDERED: Klor Con PO ONE (08:00)
[2023-08-16] MEDS: ENTRESTO 49 MG-51 MG TABLET PO SCH (08:31)
[2023-08-16] MEDS: MAG-OX 400 PO SCH (08:31)
--- NOTE | 2023-08-16 08:47 | XRAY ---
Indication: Short of breath. Hemothorax. Multiple contiguous axial images obtained through the chest using 80 cc Isovue 370 contrast. Comparison: September 14, 2022 Reaccumulation moderate right effusion again occupying at least 50% of hemithorax with again right mid to lower lung compressive atelectasis. Left lung remains clear again with incidental tiny lingula calcified granuloma. No pneumothorax. Heart remains enlarged. Aorta is normal in course and caliber without aneurysm/dissection. No pathologic based on/hilar lymphadenopathy. Bony thorax intact again with mild degenerative changes throughout the spine. Again mild diffuse anasarca. Limited upper abdomen again demonstrates fatty liver and incompletely visualized tiny perihepatic/perisplenic free fluid. Impression: Again cardiomegaly with reaccumulation moderate right effusion, right lung compressive atelectasis, diffuse anasarca, and tiny abdominal ascites. Rule out cardiac decompensation/CHF versus fluid overload.
[2023-08-16] MEDS ORDERED: Cardizem CD PO SCH (10:00)
[2023-08-16] MEDS ORDERED: JARDIANCE PO SCH (10:00)
[2023-08-16] MEDS ORDERED: DILTIAZEM HCL 240 MG PO SCH (10:00)
[2023-08-16] MEDS ORDERED: Apresoline 25 MG TABLET PO SCH (10:00)
[2023-08-16] MEDS ORDERED: NEURONTIN PO SCH (10:00)
[2023-08-16] MEDS ORDERED: Cymbalta 30 MG Capsule PO SCH (10:00)
--- NOTE | 2023-08-16 10:01 | PCM.DS ---
Discharge Summary Date of Admission: 08/15/23 19:13 Date of Discharge: 08/16/23 Admitting Physician: LEIDY MEDRANO MD Primary Care Provider: IRVING HENRY <BRET DIEZ - Last Filed: 08/16/23 09:55> Date of Admission: 08/15/23 19:13 Date of Discharge: 08/16/23 Admitting Physician: LEIDY MEDRANO MD Primary Care Provider: IRVING HENRY <LASHAE MARQUES - Last Filed: 08/16/23 20:16> Allergies <BRET DIEZ - Last Filed: 08/16/23 09:55> <LASHAE MARQUES - Last Filed: 08/16/23 20:16> Allergies No Known Drug Allergies Allergy (Verified 06/21/23 02:16) Hospital Summary - Hospital Course Hospital Course: 08/16/23 63 yo wm with hx of CHF(diastolic), Severe MR, PAH, Afib, HTN admitted with progressive sob and abdominal swelling. Pt was admittted approx 6 weeks ago for similar sxs. At that admit pt was diuresed and had a right sided thoracentesis. Since d/c pt has been compliant with medications. He has progressively had sob and worsening lower extremity edema/abd girth. Pt was running out of medications thus attempted visit with PCP. Pt had labs and was admitted. Pt has not seen cards since d/c and in last year. Pt has put on 30-40lbs in last 6 weeks. He co ntinues to be SOB on 2LNC . After review of echo and current radiology results pt needs tx to a higher level of care for cardiology evaluation. His abd continues to be distended and he has + 3 pitting BLLE edema despite overnight diuretics. Thoracentesis scheduled for today. He denies CP, N/V/D. - Vitals & Intake/Output Vital Signs: Vital Signs Temperature 97.5 F 08/16/23 07:14 Pulse Rate 87 08/16/23 07:14 Respiratory Rate 22 08/16/23 07:14 Blood Pressure 132/76 08/16/23 07:14 O2 Sat by Pulse Oximetry 98 08/16/23 08:43 Intake & Output: Intake & Output 08/13/23 08/14/23 08/15/23 08/16/23 12:59 11:59 11:59 11:59 Intake Total 560 Output Total 3075 Balance -2515 Weight 124.9 kg - Lab Result Diagrams: 08/16/23 04:45 08/16/23 04:45 Lab Results-Last 24 Hrs: Lab Results-Last 24 Hours 08/15/23 08/15/23 08/15/23 Range/Units 19:35 19:35 21:18 WBC (4.0-10.5) x10^3/uL RBC (4.1-5.6) x10^6/uL Hgb (12.5-18.0) g/dL Hct (42-50) % MCV (78-100) fL MCH (26-32) pg MCHC (32-36) g/dL RDW (11.5-14.0) % Plt Count (150-450) x10^3/uL MPV (7.5-11.0) fL Gran % (36.0-66.0) % Immature Gran % (Auto) (0.00-0.4) % Nucleat RBC Rel Count (0.00-0.1) % Eos # (Auto) (0-0.5) x10^3/uL Immature Gran # (Auto) (0.00-0.03) x10^3u/L Absolute Lymphs (auto) (1.0-4.6) x10^3/uL Absolute Monos (auto) (0.0-1.3) x10^3/uL Absolute Nucleated RBC (0.00-0.01) x10^3u/L Lymphocytes % (24.0-44.0) % Monocytes % (0.0-12.0) % Eosinophils % (0.00-5.0) % Basophils % (0.0-0.4) % Absolute Granulocytes (1.4-6.9) x10^3/uL Basophils # (0-0.4) x10^3/uL Sodium 138 (137-145) mmol/L Potassium 4.0 (3.5-5.1) mmol/L Chloride 100 (98-107) mmol/L Carbon Dioxide 25 (22-30) mmol/L Anion Gap 17.1 H (5-15) MEQ/L BUN 33 H (9-20) mg/dL Creatinine 1.21 (0.66-1.25) mg/dL Estimated GFR 68.1 ML/MIN Glucose 281 H (74-106) mg/dL POC Glucometer 227 H (74 to 106) mg/dL Calcium 9.7 (8.4-10.2) mg/dL Magnesium (1.6-2.3) mg/dL Troponin I 0.028 (0.000-0.034) ng/mL 08/16/23 08/16/23 08/16/23 Range/Units 04:45 04:45 04:45 WBC 5.8 (4.0-10.5) x10^3/uL RBC 5.00 (4.1-5.6) x10^6/uL Hgb 14.4 (12.5-18.0) g/dL Hct 45.1 (42-50) % MCV 90.2 (78-100) fL MCH 28.8 (26-32) pg MCHC 31.9 L (32-36) g/dL RDW 16.9 H (11.5-14.0) % Plt Count 202 (150-450) x10^3/uL MPV 12.1 H (7.5-11.0) fL Gran % 62.8 (36.0-66.0) % Immature Gran % (Auto) 0.5 H (0.00-0.4) % Nucleat RBC Rel Count 0.0 (0.00-0.1) % Eos # (Auto) 0.07 (0-0.5) x10^3/uL Immature Gran # (Auto) 0.03 (0.00-0.03) x10^3u/L Absolute Lymphs (auto) 1.43 (1.0-4.6) x10^3/uL Absolute Monos (auto) 0.52 (0.0-1.3) x10^3/uL Absolute Nucleated RBC 0.00 (0.00-0.01) x10^3u/L Lymphocytes % 24.8 (24.0-44.0) % Monocytes % 9.0 (0.0-12.0) % Eosinophils % 1.2 (0.00-5.0) % Basophils % 1.7 (0.0-0.4) % Absolute Granulocytes 3.61 (1.4-6.9) x10^3/uL Basophils # 0.10 (0-0.4) x10^3/uL Sodium 137 (137-145) mmol/L Potassium 3.2 L (3.5-5.1) mmol/L Chloride 103 (98-107) mmol/L Carbon Dioxide 23 (22-30) mmol/L Anion Gap 14.2 (5-15) MEQ/L BUN 30 H (9-20) mg/dL Creatinine 1.04 (0.66-1.25) mg/dL Estimated GFR 81.7 ML/MIN Glucose 130 H (74-106) mg/dL POC Glucometer (74 to 106) mg/dL Calcium 9.2 (8.4-10.2) mg/dL Magnesium 2.1 (1.6-2.3) mg/dL Troponin I (0.000-0.034) ng/mL 08/16/23 Range/Units 06:31 WBC (4.0-10.5) x10^3/uL RBC (4.1-5.6) x10^6/uL Hgb (12.5-18.0) g/dL Hct (42-50) % MCV (78-100) fL MCH (26-32) pg MCHC (32-36) g/dL RDW (11.5-14.0) % Plt Count (150-450) x10^3/uL MPV (7.5-11.0) fL Gran % (36.0-66.0) % Immature Gran % (Auto) (0.00-0.4) % Nucleat RBC Rel Count (0.00-0.1) % Eos # (Auto) (0-0.5) x10^3/uL Immature Gran # (Auto) (0.00-0.03) x10^3u/L Absolute Lymphs (auto) (1.0-4.6) x10^3/uL Absolute Monos (auto) (0.0-1.3) x10^3/uL Absolute Nucleated RBC (0.00-0.01) x10^3u/L Lymphocytes % (24.0-44.0) % Monocytes % (0.0-12.0) % Eosinophils % (0.00-5.0) % Basophils % (0.0-0.4) % Absolute Granulocytes (1.4-6.9) x10^3/uL Basophils # (0-0.4) x10^3/uL Sodium (137-145) mmol/L Potassium (3.5-5.1) mmol/L Chloride (98-107) mmol/L Carbon Dioxide (22-30) mmol/L Anion Gap (5-15) MEQ/L BUN (9-20) mg/dL Creatinine (0.66-1.25) mg/dL Estimated GFR ML/MIN Glucose (74-106) mg/dL POC Glucometer 132 H (74 to 106) mg/dL Calcium (8.4-10.2) mg/dL Magnesium (1.6-2.3) mg/dL Troponin I (0.000-0.034) ng/mL Micro Results-Entire Visit: Accuchecks Date 08/16/23 Date 08/15/23 Time 07:14 - Radiology Exams Ordered Rad Exams-Entire Visit: Radiology Procedures Category Date Time Status CHEST WITH CONTRAST [CT] Urgent Exams 08/16/23 07:34 Completed THORACENTESIS [US] Routine Exams 08/16/23 08:00 Ordered - Procedures and Test Procedures and Tests throughout Hospitalization: Therapy Orders & Screens 08/15/23 20:31 RT Screen per Nursing Assess ONCE Comment: Protocol Order Physician Instructions: Greater than 3 points order RT Admission Screen Reason For Exam: Triggered on Admission Diagnosis: CHF Diagnosis: CHF Pneumonia: Yes Home O2: No Asthma: No CHF: Yes Home CPAP/BIPAP: No Home Nebs/MDI: No Total Points: 6 Smoking Cessation Education ONCE Comment: Diagnosis: CHF Smoking Status: Current every day smoker How long have you smoked: 40 Have you smoked in the past 12 months: Yes Approximately how many cigarettes per day: 3 Do you dip or chew tobacco: No 08/15/23 20:45 EKG ROUTINE Comment: Diagnosis: CHF 08/16/23 06:43 Oxygen Nasal Cannula 2 lpm Comment: Diagnosis: CHF <BRET DIEZ - Last Filed: 08/16/23 09:55> - Vitals & Intake/Output Vital Signs: Vital Signs Temperature 97.1 F 08/16/23 12:00 Pulse Rate 92 H 08/16/23 12:00 Respiratory Rate 20 08/16/23 12:00 Blood Pressure 138/78 08/16/23 12:00 O2 Sat by Pulse Oximetry 100 08/16/23 12:00 Intake & Output: Intake & Output 08/14/23 08/15/23 08/16/23 08/17/23 11:59 11:59 11:59 11:59 Intake Total 560 360 Output Total 3075 1750 Balance -2515 -1390 Weight 124.9 kg - Lab Result Diagrams: 08/16/23 04:45 08/16/23 04:45 Lab Results-Last 24 Hrs: Lab Results-Last 24 Hours 08/15/23 08/15/23 08/15/23 Range/Units 19:35 19:35 21:18 WBC (4.0-10.5) x10^3/uL RBC (4.1-5.6) x10^6/uL Hgb (12.5-18.0) g/dL Hct (42-50) % MCV (78-100) fL MCH (26-32) pg MCHC (32-36) g/dL RDW (11.5-14.0) % Plt Count (150-450) x10^3/uL MPV (7.5-11.0) fL Gran % (36.0-66.0) % Immature Gran % (Auto) (0.00-0.4) % Nucleat RBC Rel Count (0.00-0.1) % Eos # (Auto) (0-0.5) x10^3/uL Immature Gran # (Auto) (0.00-0.03) x10^3u/L Absolute Lymphs (auto) (1.0-4.6) x10^3/uL Absolute Monos (auto) (0.0-1.3) x10^3/uL Absolute Nucleated RBC (0.00-0.01) x10^3u/L Lymphocytes % (24.0-44.0) % Monocytes % (0.0-12.0) % Eosinophils % (0.00-5.0) % Basophils % (0.0-0.4) % Absolute Granulocytes (1.4-6.9) x10^3/uL Basophils # (0-0.4) x10^3/uL PT (9.4-12.5) SECONDS INR (0.8-3.0) Sodium 138 (137-145) mmol/L Potassium 4.0 (3.5-5.1) mmol/L Chloride 100 (98-107) mmol/L Carbon Dioxide 25 (22-30) mmol/L Anion Gap 17.1 H (5-15) MEQ/L BUN 33 H (9-20) mg/dL Creatinine 1.21 (0.66-1.25) mg/dL Estimated GFR 68.1 ML/MIN Glucose 281 H (74-106) mg/dL POC Glucometer 227 H (74 to 106) mg/dL Calcium 9.7 (8.4-10.2) mg/dL Magnesium (1.6-2.3) mg/dL Troponin I 0.028 (0.000-0.034) ng/mL 08/16/23 08/16/23 08/16/23 Range/Units 04:45 04:45 04:45 WBC 5.8 (4.0-10.5) x10^3/uL RBC 5.00 (4.1-5.6) x10^6/uL Hgb 14.4 (12.5-18.0) g/dL Hct 45.1 (42-50) % MCV 90.2 (78-100) fL MCH 28.8 (26-32) pg MCHC 31.9 L (32-36) g/dL RDW 16.9 H (11.5-14.0) % Plt Count 202 (150-450) x10^3/uL MPV 12.1 H (7.5-11.0) fL Gran % 62.8 (36.0-66.0) % Immature Gran % (Auto) 0.5 H (0.00-0.4) % Nucleat RBC Rel Count 0.0 (0.00-0.1) % Eos # (Auto) 0.07 (0-0.5) x10^3/uL Immature Gran # (Auto) 0.03 (0.00-0.03) x10^3u/L Absolute Lymphs (auto) 1.43 (1.0-4.6) x10^3/uL Absolute Monos (auto) 0.52 (0.0-1.3) x10^3/uL Absolute Nucleated RBC 0.00 (0.00-0.01) x10^3u/L Lymphocytes % 24.8 (24.0-44.0) % Monocytes % 9.0 (0.0-12.0) % Eosinophils % 1.2 (0.00-5.0) % Basophils % 1.7 (0.0-0.4) % Absolute Granulocytes 3.61 (1.4-6.9) x10^3/uL Basophils # 0.10 (0-0.4) x10^3/uL PT (9.4-12.5) SECONDS INR (0.8-3.0) Sodium 137 (137-145) mmol/L Potassium 3.2 L (3.5-5.1) mmol/L Chloride 103 (98-107) mmol/L Carbon Dioxide 23 (22-30) mmol/L Anion Gap 14.2 (5-15) MEQ/L BUN 30 H (9-20) mg/dL Creatinine 1.04 (0.66-1.25) mg/dL Estimated GFR 81.7 ML/MIN Glucose 130 H (74-106) mg/dL POC Glucometer (74 to 106) mg/dL Calcium 9.2 (8.4-10.2) mg/dL Magnesium 2.1 (1.6-2.3) mg/dL Troponin I (0.000-0.034) ng/mL 08/16/23 08/16/23 08/16/23 Range/Units 06:31 10:05 10:05 WBC (4.0-10.5) x10^3/uL RBC (4.1-5.6) x10^6/uL Hgb (12.5-18.0) g/dL Hct (42-50) % MCV (78-100) fL MCH (26-32) pg MCHC (32-36) g/dL RDW (11.5-14.0) % Plt Count (150-450) x10^3/uL MPV (7.5-11.0) fL Gran % (36.0-66.0) % Immature Gran % (Auto) (0.00-0.4) % Nucleat RBC Rel Count (0.00-0.1) % Eos # (Auto) (0-0.5) x10^3/uL Immature Gran # (Auto) (0.00-0.03) x10^3u/L Absolute Lymphs (auto) (1.0-4.6) x10^3/uL Absolute Monos (auto) (0.0-1.3) x10^3/uL Absolute Nucleated RBC (0.00-0.01) x10^3u/L Lymphocytes % (24.0-44.0) % Monocytes % (0.0-12.0) % Eosinophils % (0.00-5.0) % Basophils % (0.0-0.4) % Absolute Granulocytes (1.4-6.9) x10^3/uL Basophils # (0-0.4) x10^3/uL PT 13.0 H (9.4-12.5) SECONDS INR 1.21 (0.8-3.0) Sodium (137-145) mmol/L Potassium (3.5-5.1) mmol/L Chloride (98-107) mmol/L Carbon Dioxide (22-30) mmol/L Anion Gap (5-15) MEQ/L BUN (9-20) mg/dL Creatinine (0.66-1.25) mg/dL Estimated GFR ML/MIN Glucose (74-106) mg/dL POC Glucometer 132 H (74 to 106) mg/dL Calcium (8.4-10.2) mg/dL Magnesium (1.6-2.3) mg/dL Troponin I 0.041 H* (0.000-0.034) ng/mL 08/16/23 08/16/23 Range/Units 11:33 12:58 WBC (4.0-10.5) x10^3/uL RBC (4.1-5.6) x10^6/uL Hgb (12.5-18.0) g/dL Hct (42-50) % MCV (78-100) fL MCH (26-32) pg MCHC (32-36) g/dL RDW (11.5-14.0) % Plt Count (150-450) x10^3/uL MPV (7.5-11.0) fL Gran % (36.0-66.0) % Immature Gran % (Auto) (0.00-0.4) % Nucleat RBC Rel Count (0.00-0.1) % Eos # (Auto) (0-0.5) x10^3/uL Immature Gran # (Auto) (0.00-0.03) x10^3u/L Absolute Lymphs (auto) (1.0-4.6) x10^3/uL Absolute Monos (auto) (0.0-1.3) x10^3/uL Absolute Nucleated RBC (0.00-0.01) x10^3u/L Lymphocytes % (24.0-44.0) % Monocytes % (0.0-12.0) % Eosinophils % (0.00-5.0) % Basophils % (0.0-0.4) % Absolute Granulocytes (1.4-6.9) x10^3/uL Basophils # (0-0.4) x10^3/uL PT (9.4-12.5) SECONDS INR (0.8-3.0) Sodium (137-145) mmol/L Potassium (3.5-5.1) mmol/L Chloride (98-107) mmol/L Carbon Dioxide (22-30) mmol/L Anion Gap (5-15) MEQ/L BUN (9-20) mg/dL Creatinine (0.66-1.25) mg/dL Estimated GFR ML/MIN Glucose (74-106) mg/dL POC Glucometer 189 H (74 to 106) mg/dL Calcium (8.4-10.2) mg/dL Magnesium (1.6-2.3) mg/dL Troponin I 0.035 H (0.000-0.034) ng/mL Micro Results-Entire Visit: Accuchecks Date 08/16/23 Date 08/16/23 Date 08/15/23 Time 12:00 Time 07:14 - Radiology Exams Ordered Rad Exams-Entire Visit: Radiology Procedures Category Date Time Status CHEST WITH CONTRAST [CT] Urgent Exams 08/16/23 07:34 Completed - Procedures and Test Procedures and Tests throughout Hospitalization: Therapy Orders & Screens 08/15/23 20:31 RT Screen per Nursing Assess ONCE Comment: Protocol Order Physician Instructions: Greater than 3 points order RT Admission Screen Reason For Exam: Triggered on Admission Diagnosis: CHF Diagnosis: CHF Pneumonia: Yes Home O2: No Asthma: No CHF: Yes Home CPAP/BIPAP: No Home Nebs/MDI: No Total Points: 6 Smoking Cessation Education ONCE Comment: Diagnosis: CHF Smoking Status: Current every day smoker How long have you smoked: 40 Have you smoked in the past 12 months: Yes Approximately how many cigarettes per day: 3 Do you dip or chew tobacco: No 08/15/23 20:45 EKG ROUTINE Comment: Diagnosis: CHF 08/16/23 06:43 Oxygen Nasal Cannula 2 lpm Comment: Diagnosis: CHF <SHELLILASHAE - Last Filed: 08/16/23 20:16> Discharge Exam General Appearance: no apparent distress, alert, obese Neurologic Exam: alert, oriented x 3, cooperative, normal mood/affect, nml cerebellar function, sensation nml, No motor deficits Eye Exam: PERRL, EOMI, eyes nml inspection Ears, Nose, Throat Exam: normal ENT inspection, pharynx normal, moist mucous membranes Neck Exam: normal inspection, non-tender, supple, full range of motion Respiratory Exam: normal breath sounds, lungs clear, other (shortness of breath), No respiratory distress Cardiovascular Exam: regular rate/rhythm, normal heart sounds, edema (+ 3 BLLE edema) Gastrointestinal/Abdomen Exam: soft, distention, No tenderness, No mass Male Genitalia Exam: deferred Rectal Exam: deferred Back Exam: normal inspection, normal range of motion, No CVA tenderness, No vertebral tenderness Extremity Exam: normal inspection, normal range of motion Skin Exam: normal color, warm, dry <BRET DIEZ - Last Filed: 08/16/23 09:55> Final Diagnosis/Problem List - Final Discharge Diagnosis/Problem (1) CHF (congestive heart failure) Status: Acute Code(s): I50.9 - HEART FAILURE, UNSPECIFIED (2) Mitral regurgitation Status: Acute (3) Recurrent right pleural effusion Status: Acute Code(s): J90 - PLEURAL EFFUSION, NOT ELSEWHERE CLASSIFIED (4) Atrial fibrillation Status: Acute Code(s): I48.91 - UNSPECIFIED ATRIAL FIBRILLATION (5) DM (diabetes mellitus) Status: Acute Code(s): E11.9 - TYPE 2 DIABETES MELLITUS WITHOUT COMPLICATIONS (6) Hypertension Status: Chronic Assessment & Plan: 1. CHF exac: -diastolic HF + Severe MR. -Most of sxs are from PAH. - Re-start IV diuresis. -Continue RPP control. -Will continue dilt and metop for rate control of afib. 2. Mitral Regurgitation: severe on last echo. Suspect etiology of sxs and PAH. - Needs higher level of care for RHC/LHC and eval of options for valve. Defer to cards. 3. Right pleural effusion: large. Re-accumulated since last admit. -Thoracentesis ordered. -Lovenox last night tonight. Held in am for procedure. 4. HTN: continue outpt regimen. -Wean off clonidine during this admit 5. DM: -Continue metformin. -Continue SS. 6. Afib: rate controlled. -Appears in NSR on exam. -Reviwed ECG. -Continue dilt and metoprolol. -Hold apixiban. -1 dose of lovenox ordered last night held today for procedure Full Code Code(s): I10 - ESSENTIAL (PRIMARY) HYPERTENSION <BRET DIEZ - Last Filed: 08/16/23 09:55> - Discharge Discharge Date: 08/16/23 <BRET DIEZ - Last Filed: 08/16/23 09:55> <LASHAE MARQUES - Last Filed: 08/16/23 20:16> - Discharge Condition: Fair Prescriptions: Continue Atorvastatin Calcium [Lipitor 20MG Tablet] 20 mg PO HS Duloxetine HCl 30 mg [Cymbalta 30 MG Capsule] 60 mg PO DAILY Metformin HCl 1000 mg [Glucophage 1000 MG] 500 mg PO BID Empagliflozin [Jardiance] 25 mg PO DAILY Tamsulosin HCl 0.4 mg [Flomax 0.4 MG] 0.4 mg PO HS Potassium Chloride Tab* [Klor Con] 20 meq PO EVENING MEAL Potassium Chloride 40 meq PO DAILY Furosemide 20 mg [Lasix 20 mg] 80 mg PO BID Apixaban [Eliquis 2.5 mg Tablet] 5 mg PO BID Magnesium Oxide 400 mg [Mag-Ox 400] 400 mg PO TID Metoprolol Tartrate 50 mg [Lopressor 50 MG] 50 mg PO BID Gabapentin 600 mg PO BID Clonidine HCl 0.1 mg [Clonidine 0.1 mg Tablet] 0.2 mg PO TID Diltiazem HCl [Cartia Xt] 120 mg PO DAILY Hydralazine HCl 50 mg PO BID Sacubitril/Valsartan [Entresto 49 mg-51 mg Tablet] 1 tablet PO BID 30 Days #60 tablet Follow up with: IRVING HENRY MD [Primary Care Provider] - Forms: Transfer Record Inter-Agency APARNA Encounter - APARNA Encounter Attestation APARNA Encounter Attestation: "IhavepersonallyseenandexHILDA Sorto andhavediscussed pertinent aspects of their care with Bret Beth-Brittaney agree with the history, physical exam (any modifications based on my personal exam will be noted below), assessment, and plan as outlined in original note. Please see immediately below for my summary of findings and additional assessment and plan along with any meaningful corrections/explanations to the Subjective/Objective portions of the APARNA note will be noted." My portion of the encounter took place via telemedicine. -Patient being transferred to higher level of care for cardiology evaluation. He has had recurrent severe heart failure with moderate to severe mitral regurg itation and no cardiology evaluation in at least the past year. Discussed case with house registry rn from [facility] who accepted patient. <LASHAE MARQUES - Last Filed: 08/16/23 20:16>
[2023-08-16 10:25] LABS: INR 1.21 (0.8-3.0)
[2023-08-16] MEDS: Lopressor 50 MG PO SCH (11:08)
[2023-08-16] MEDS: CLONIDINE 0.1 MG TABLET PO SCH (11:08)
[2023-08-16 12:01] VITALS: BP 138/78; PULSE 92; RESP 20; TEMP 97.1; O2SAT 100
== END 2023-08-16 14:50 | disposition short-term general hospital (02) ==
LOC: OBSVTOIN 19:13 → UNDOADMOB 19:13 → INTOOBSV 19:13 → MED SURG 19:13
PROVIDERS: ADMIT Internal Medicine Critical Care Medicine; ATTEND Internal Medicine Critical Care Medicine
DX: I11.0 Hypertensive heart disease with heart failure (principal); I50.9 Heart failure, unspecified; J90 Pleural effusion, not elsewhere classified; I34.0 Nonrheumatic mitral (valve) insufficiency; I48.91 Unspecified atrial fibrillation; E11.9 Type 2 diabetes mellitus without complications; R60.0 Localized edema; F17.200 Nicotine dependence, unspecified, uncomplicated; Z79.899 Other long term (current) drug therapy; Z20.828 Contact with and (suspected) exposure to other viral communicable diseases
CPT/HCPCS: 36415; 71260; 80048; 82947; 83735; 84484; 85025; 85610; 93005; 93268; 94760; G0379; J1817; J1940; Q3014; A9270-GY; G0378

== ENCOUNTER 2023-12-16 22:42 | Observation (INO) | payer OTHER ==
[2023-12-16] MEDS ORDERED: Sodium Chloride 0.9% 1000 ML 0 ML ONE (22:53)
[2023-12-16] MEDS ORDERED: NOREPINEPHRINE 8 MG/250 ML-D5W 8 MG/250 ML PLAST..BAG IV ONE (23:00)
[2023-12-16] MEDS: NOREPINEPHRINE 8 MG/250 ML-D5W 8 MG/250 ML PLAST..BAG IV PRN (23:04)
--- NOTE | 2023-12-16 23:07 | ERPHSYRPT ---
- History of Present Illness Time Seen by Provider: 12/16/23 23:00 Source: EMS Exam Limitations: clinical condition Physician History: 63yo m presents to ED from home for AMS reportedly lasting > 12h. EMS reports family informed them that pt has been "out of it" since he woke up this AM, has been lethargic and difficult to arouse. EMS reports BG on transport was > 400, family reportedly gave 20u long acting insulin this AM but no other medications given. No family at bedside. Pt is minimally responsive to voice and painful stimuli, AxO x 1. Timing/Duration: today (15h) Severity: moderate Character of Deficits: other (lethargic, difficult to arouse) Current Cognition: poor alertness Allergies/Adverse Reactions: No Known Drug Allergies Allergy (Verified 06/21/23 02:16) Home Medications: Atorvastatin Calcium [Lipitor 20MG Tablet] 20 mg PO HS 08/12/16 [History] Duloxetine HCl 30 mg [Cymbalta 30 MG Capsule] 60 mg PO DAILY 08/12/16 [History] Empagliflozin [Jardiance] 25 mg PO DAILY 08/12/16 [History] Metformin HCl 1000 mg [Glucophage 1000 MG] 500 mg PO BID 08/12/16 [History] Tamsulosin HCl 0.4 mg [Flomax 0.4 MG] 0.4 mg PO HS 03/11/22 [History] Apixaban [Eliquis 2.5 mg Tablet] 5 mg PO BID 08/31/22 [History] Furosemide 20 mg [Lasix 20 mg] 80 mg PO BID 08/31/22 [History] Magnesium Oxide 400 mg [Mag-Ox 400] 400 mg PO TID 08/31/22 [History] Potassium Chloride 40 meq PO DAILY 08/31/22 [History] Potassium Chloride Tab* [Klor Con] 20 meq PO EVENING MEAL 08/31/22 [History] Clonidine HCl 0.1 mg [Clonidine 0.1 mg Tablet] 0.2 mg PO TID 06/20/23 [History] Diltiazem HCl [Cartia Xt] 120 mg PO DAILY 06/20/23 [History] Gabapentin 600 mg PO BID 06/20/23 [History] Hydralazine HCl 50 mg PO BID 06/20/23 [History] Metoprolol Tartrate 50 mg [Lopressor 50 MG] 50 mg PO BID 06/20/23 [History] Hx Tetanus, Diphtheria Vaccination/Date Given: No Hx Influenza Vaccination/Date Given: No Hx Pneumococcal Vaccination/Date Given: No Travel Risk - Vaccine Status Have you recieved a Covid-19 vaccination: No Cable Maker: Unknown - Vaccination Dates Dates if Unknown: UNKNOWN - Past Medical History Pertinent Past Medical History: Yes Neurological History: TIA ENT History: Other Cardiac History: Arrhythmia, Other Respiratory History: No Pertinent History Endocrine Medical History: Diabetes Type II Musculoskeletal History: No Pertinent History GI Medical History: No Pertinent History History: No Pertinent History Psycho-Social History: Anxiety, Depression Male Reproductive Disorders: No Pertinent History Other Medical History: R SHOULDER INSTABILITY, A FIB - Past Surgical History Past Surgical History: Yes Neuro Surgical History: No Pertinent History Cardiac: No Pertinent History Respiratory: No Pertinent History Gastrointestinal: No Pertinent History Genitourinary: No Pertinent History Musculoskeletal: Orthopedic Surgery Male Surgical History: No Pertinent History Other Surgical History: RIGHT shoulder - Social History Smoking Status: Current every day smoker How long have you smoked: 40 Exposure to second hand smoke: Yes Drug Use: none Patient Lives Alone: Yes Significant Family History: no pertinent family hx - Nursing Vital Signs Nursing Vital Signs: Initial Vital Signs Temperature 97.5 F 12/16/23 22:43 Pulse Rate 73 12/16/23 22:43 Respiratory Rate 22 12/16/23 22:43 Blood Pressure 56/23 12/16/23 22:43 O2 Sat by Pulse Oximetry 98 12/16/23 22:43 - Cr Coma Scale Best Eye Response (Cr): (3) open to voice Best Verbal Response ([place]): (4) confused conversation Best Motor Response ([place]): (4) withdraws to pain [place] Total: 11 - Physical Exam General Appearance: mild distress, lethargy, obese Eye Exam: bilateral eye: normal inspection, PERRL Respiratory: normal breath sounds, lungs clear, airway intact, No respiratory distress, No crackles/rales, No rhonchi, No wheezing Cardiovascular: regular rate/rhythm, tachycardia, No edema Gastrointestinal: soft, normal bowel sounds, No distention, No mass, No guarding Male Genitalia: other (purulent fluid beneath foreskin; large superficial wound on left buttock 3x3cm, non-draining) Extremity Exam: other (b/l feet - black excoriated first metatarsals on plantar and lateral surfaces, ) Mental Status: lethargy, other (oriented to self only, withdraws to pain, opens eyes to voice, will respond to simple questions intermittently ) panel cutter Exam: PERRL - Course EKG Interpreted by Me: RATE (99), Sinus Rhythm, Right Bundle Branch Block, Non- specific ST Changes Ordered Tests: Active Orders 24 hr Category Date Time Status Bedrest TOLERATED Activity 12/17/23 00:59 Active Admit as Inpatient ROUTINE Care 12/17/23 00:58 Active Arterial Pressure Monitor UD Care 12/17/23 01:46 Active Cath [Catheter-[place]] STAT Care 12/17/23 01:36 Active Code Status Order ROUTINE Care 12/17/23 00:58 Active IV Insertion STAT Care 12/17/23 04:55 Active IV Insertion-2nd Peripheral STAT Care 12/17/23 04:55 Active NPO (ED) STAT Care 12/16/23 23:08 Active POCT Glucose Check Q4H Care 12/17/23 00:57 Active Telemetry PROTOCOL Care 12/17/23 00:58 Active CHEST 1 VIEW (PORTABLE) Stat Exams 12/16/23 23:02 Taken CHEST 1 VIEW (PORTABLE) Stat Exams 12/17/23 04:25 Taken HEAD WITHOUT CONTRAST [CT] Stat Exams 12/16/23 23:14 Completed ARTERIAL BLOOD GASES AM.LAB Lab 12/17/23 04:45 Completed ARTERIAL BLOOD GASES Urgent Lab 12/16/23 22:58 Completed BLOOD CULTURE Stat Lab 12/17/23 00:32 Received CBC AM.LAB Lab 12/17/23 04:00 Ordered CBC W DIFF Stat Lab 12/16/23 23:00 Completed CMP AM.LAB Lab 12/17/23 04:00 Ordered CMP Stat Lab 12/16/23 23:00 Completed CULTURE,URINE Stat Lab 12/16/23 23:33 Received CULTURE,WOUND Stat Lab 12/16/23 23:33 Received Lactic Acid Stat Lab 12/17/23 01:33 Completed Lactic Acid Urgent Lab 12/16/23 22:58 Completed Manual Differential NC Stat Lab 12/16/23 23:00 Completed POCT GLUCOSE Stat Lab 12/16/23 22:50 Completed POCT GLUCOSE Stat Lab 12/16/23 23:58 Completed TROPONIN Q4H Lab 12/16/23 23:00 Completed TROPONIN Q4H Lab 12/17/23 00:32 Completed TROPONIN Q4H Lab 12/17/23 07:15 Ordered UA W/RFX UR CULTURE Stat Lab 12/17/23 00:01 Completed Medication Summary Generic Name Dose Route Start Last Admin Trade Name Bassem PRN Reason Stop Dose Admin Acetaminophen 325 mg 12/17/23 00:57 Acetaminophen 325 Mg Tablet PO 01/16/24 00:56 Q4H PRN PRN PAIN, FEVER, HEADACHE Apixaban 5 mg 12/17/23 10:00 Apixaban 2.5 Mg Tablet PO 01/16/24 09:59 BID [facility] Duloxetine HCl 60 mg 12/17/23 10:00 Duloxetine Hcl 30 Mg Cap PO 01/16/24 09:59 DAILY [facility] Empagliflozin 25 mg 12/17/23 10:00 Empagliflozin 10 Mg Tablet PO 01/16/24 09:59 DAILY [facility] Sodium Chloride 1,000 mls @ 125 mls/hr 12/17/23 01:00 12/17/23 00:57 Sodium Chloride 0.9% 1000 Ml IV 01/16/24 00:59 125 mls/hr .Q8H KALLIE Administration Piperacillin Sod/Tazobactam 100 mls @ 200 mls/hr 12/17/23 06:00 Sod 2.25 gm/ Sodium Chloride IV 01/16/24 05:59 Q6HT KALLIE Vancomycin HCl 1 gm/ Sodium 250 mls @ 125 mls/hr 12/17/23 01:30 Chloride IV 01/16/24 01:29 Q12H KALLIE Norepinephrine/Dextrose 8 mg in 250 mls @ 15 mls/hr 12/17/23 02:03 12/17/23 03:32 Norepinephrine 8 Mg/250 Ml-D5w IV 01/16/24 02:02 20 mcg/min .[id number] PRN 37.5 mls/hr HYPOTENSION Titration Protocol 8 MCG/MIN Insulin Human Regular 0 unit 12/17/23 00:57 Insulin Regular, Human 1 Unit SQ 01/16/24 00:56 UD PRN HYPERGLYCEMIA Non-Formulary Medication 20 mg 12/17/23 22:00 Atorvastatin Calcium PO 01/16/24 21:59 HS [facility] Tamsulosin HCl 0.4 mg 12/17/23 22:00 Tamsulosin Hcl 0.4 Mg Cap PO 01/16/24 21:59 HS KALLIE Discontinued Medications Generic Name Dose Route Start Last Admin Trade Name Bassem PRN Reason Stop Dose Admin Sodium Chloride Confirm 12/16/23 22:53 Sodium Chloride 0.9% 1000 Ml Administered 12/16/23 22:54 Dose 1,000 mls @ ud .ROUTE .STK-MED ONE Norepinephrine/Dextrose Confirm 12/16/23 23:00 Norepinephrine 8 Mg/250 Ml-D5w Administered 12/16/23 23:01 Dose 8 mg in 250 mls @ ud IV .STK-MED ONE Sodium Chloride Confirm 12/16/23 23:48 Sodium Chloride 0.9% 1000 Ml Administered 12/16/23 23:49 Dose 1,000 mls @ ud .ROUTE .STK-MED ONE Vancomycin HCl 1 gm in 200 mls @ 125 mls/hr 12/17/23 00:14 12/17/23 02:35 Vancomycin 1 Gram/200 Ml Bag IV 12/17/23 01:49 Infused STAT ONE Infusion Piperacillin Sod/Tazobactam 100 mls @ 200 mls/hr 12/17/23 00:14 12/17/23 00:23 Sod 3.375 gm/ Sodium Chloride IV 12/17/23 00:43 200 mls/hr STAT ONE Administration Sodium Chloride Confirm 12/17/23 00:21 Sodium Chloride 100ml Mini-Bag Plus Administered 12/17/23 00:22 Dose 100 mls @ ud IV .STK-MED ONE Vancomycin HCl Confirm 12/17/23 00:56 Vancomycin 1 Gram/200 Ml Bag Administered 12/17/23 00:57 Dose 1 gm in 200 mls @ ud IV .STK-MED ONE Sodium Chloride Confirm 12/17/23 02:48 Sodium Chloride 0.9% 500 Ml Administered 12/17/23 02:49 Dose 500 mls @ ud IV .STK-MED ONE Insulin Human Lispro 10 unit 12/16/23 23:02 12/16/23 23:17 Insulin Lispro 1 Unit SQ 12/16/23 23:03 10 unit STAT ONE Administration Insulin Human Lispro Confirm 12/16/23 23:17 Insulin Lispro 1 Unit Administered 12/16/23 23:18 Dose 10 unit .ROUTE .STK-MED ONE Piperacillin Sod/Tazobactam Sod Confirm 12/17/23 00:20 Piperacillin/Tazobactam Sodium 3.375 Gm Vial Administered 12/17/23 00:21 Dose 3.375 gm IV .K-MED ONE Lab/Rad Data: Laboratory Result Diagrams 12/16/23 23:00 12/16/23 23:00 Laboratory Results 12/17/23 12/17/23 12/17/23 Range/Units 04:45 01:33 00:32 WBC (4.0-10.5) x10^3/uL RBC (4.1-5.6) x10^6/uL Hgb (12.5-18.0) g/dL Hct (42-50) % MCV (78-100) fL MCH (26-32) pg MCHC (32-36) g/dL RDW (11.5-14.0) % Plt Count (150-450) x10^3/uL MPV (7.5-11.0) fL Segmented Neutrophils (36.-66.) % Band Neutrophils (0.0-2.0) % Lymphocytes (Manual) (24-44) % Monocytes (Manual) (0.0-12.0) % Eosinophils (Manual) (0.00-3.0) % Toxic Granulation Platelet Estimate (NORMAL) RBC Morphology Anisocytosis Puncture Site Art Line pCO2 34 L (35-45) mmHg pO2 140 H* (75-100) mmHg Base Excess -1.1 (-2.0-2.0) O2 Saturation 98.0 (94-100) g/dF ABG pH 7.43 (7.35-7.45) ABG HCO3 22.6 (22-28) ABG O2 Sat (Measured) 99.7 (95-100) % Phil Test yes A-a Gradient 245 a/A Ratio 0.36 Hemoglobin 14.0 Carboxyhemoglobin 0.9 (0.0-6.9) % THgb Methemoglobin 0.8 L (1.4-1.5) % Potassium 5.5 H (3.5-5.1) Temperature 37.0 C POC O2 Flow Rate 60 % Sodium (135-145) mmol/L Chloride (98-107) mmol/L Carbon Dioxide (22-30) mmol/L Anion Gap (5-15) MEQ/L BUN (9-20) mg/dL Creatinine (0.66-1.25) mg/dL Estimated GFR ML/MIN Glucose (74-106) mg/dL POC Glucometer (50 to 500) mg/dL Lactic Acid 1.7 (0.4-2.0) Calcium (8.4-10.2) mg/dL Total Bilirubin (0.2-1.3) mg/dL AST (17-59) U/L ALT (0-50) U/L Alkaline Phosphatase (38-126) U/L Troponin I 0.401 H* (0.000-0.034) ng/mL Serum Total Protein (6.3-8.2) g/dL Albumin (3.5-5.0) g/dL Urine Color (Yellow) Urine Appearance (Clear) Urine pH (4.6-8.0) Ur Specific [place] (1.005-1.030) Urine Protein (Negative) Urine Glucose (UA) (Negative) mg/dL Urine Ketones (Negative) Urine Blood (Negative) Urine Nitrite (Negative) Urine Bilirubin (Negative) Urine Urobilinogen (0.2) mg/dL Ur Leukocyte Esterase (Negative) U Hyaline Cast (Auto) (0-2) /LPF Urine Microscopic RBC (0-5) /HPF Urine Microscopic WBC (0-5) /HPF Ur Epithelial Cells (None Seen) /HPF Urine Bacteria (None Seen) /HPF Urine Culture Reflexed (NO) 12/17/23 12/16/23 12/16/23 Range/Units 00:01 23:58 23:00 WBC (4.0-10.5) x10^3/uL RBC (4.1-5.6) x10^6/uL Hgb (12.5-18.0) g/dL Hct (42-50) % MCV (78-100) fL MCH (26-32) pg MCHC (32-36) g/dL RDW (11.5-14.0) % Plt Count (150-450) x10^3/uL MPV (7.5-11.0) fL Segmented Neutrophils (36.-66.) % Band Neutrophils (0.0-2.0) % Lymphocytes (Manual) (24-44) % Monocytes (Manual) (0.0-12.0) % Eosinophils (Manual) (0.00-3.0) % Toxic Granulation Platelet Estimate (NORMAL) RBC Morphology Anisocytosis Puncture Site pCO2 (35-45) mmHg pO2 (75-100) mmHg Base Excess (-2.0-2.0) O2 Saturation (94-100) g/dF ABG pH (7.35-7.45) ABG HCO3 (22-28) ABG O2 Sat (Measured) (95-100) % Phil Test A-a Gradient a/A Ratio Hemoglobin Carboxyhemoglobin (0.0-6.9) % THgb Methemoglobin (1.4-1.5) % Potassium (3.5-5.1) Temperature C POC O2 Flow Rate % Sodium (135-145) mmol/L Chloride (98-107) mmol/L Carbon Dioxide (22-30) mmol/L Anion Gap (5-15) MEQ/L BUN (9-20) mg/dL Creatinine (0.66-1.25) mg/dL Estimated GFR ML/MIN Glucose (74-106) mg/dL POC Glucometer 475 H (50 to 500) mg/dL Lactic Acid (0.4-2.0) Calcium (8.4-10.2) mg/dL Total Bilirubin (0.2-1.3) mg/dL AST (17-59) U/L ALT (0-50) U/L Alkaline Phosphatase (38-126) U/L Troponin I 0.235 H* (0.000-0.034) ng/mL Serum Total Protein (6.3-8.2) g/dL Albumin (3.5-5.0) g/dL Urine Color Yellow (Yellow) Urine Appearance Clear (Clear) Urine pH 5.0 (4.6-8.0) Ur Specific [place] 1.025 (1.005-1.030) Urine Protein Trace A (Negative) Urine Glucose (UA) >=1000 A (Negative) mg/dL Urine Ketones Negative (Negative) Urine Blood Negative (Negative) Urine Nitrite Negative (Negative) Urine Bilirubin Negative (Negative) Urine Urobilinogen 0.2 (0.2) mg/dL Ur Leukocyte Esterase Negative (Negative) U Hyaline Cast (Auto) 11-20 (0-2) /LPF Urine Microscopic RBC 0-2 (0-5) /HPF Urine Microscopic WBC 6-10 A (0-5) /HPF Ur Epithelial Cells Rare (None Seen) /HPF Urine Bacteria None Seen (None Seen) /HPF Urine Culture Reflexed ORDERED SEPARATELY (NO) 12/16/23 12/16/23 12/16/23 Range/Units 23:00 23:00 22:58 WBC 21.4 H (4.0-10.5) x10^3/uL RBC 4.37 (4.1-5.6) x10^6/uL Hgb 12.6 (12.5-18.0) g/dL Hct 38.3 L (42-50) % MCV 87.6 (78-100) fL MCH 28.8 (26-32) pg MCHC 32.9 (32-36) g/dL RDW 13.5 (11.5-14.0) % Plt Count 483 H (150-450) x10^3/uL MPV 11.6 H (7.5-11.0) fL Segmented Neutrophils 74 H (36.-66.) % Band Neutrophils 12 H (0.0-2.0) % Lymphocytes (Manual) 8 L (24-44) % Monocytes (Manual) 5 (0.0-12.0) % Eosinophils (Manual) 1 (0.00-3.0) % Toxic Granulation 1+ Platelet Estimate INCREASED (NORMAL) RBC Morphology ABNORMAL Anisocytosis 1+ Puncture Site LEFT BRACHIAL pCO2 34 L (35-45) mmHg pO2 258 H* (75-100) mmHg Base Excess -0.5 (-2.0-2.0) O2 Saturation 97.5 (94-100) g/dF ABG pH 7.44 (7.35-7.45) ABG HCO3 23.1 (22-28) ABG O2 Sat (Measured) 99.5 (95-100) % Phil Test YES A-a Gradient 413 a/A Ratio 0.38 Hemoglobin 13.3 Carboxyhemoglobin 0.8 (0.0-6.9) % THgb Methemoglobin 1.2 L (1.4-1.5) % Potassium 5.8 H 5.7 H (3.5-5.1) Temperature 37.0 C POC O2 Flow Rate 100 % Sodium 124 L (135-145) mmol/L Chloride 91 L (98-107) mmol/L Carbon Dioxide 19 L (22-30) mmol/L Anion Gap 20.2 H (5-15) MEQ/L BUN 76 H (9-20) mg/dL Creatinine 3.53 H (0.66-1.25) mg/dL Estimated GFR 18.9 ML/MIN Glucose 514 H* (74-106) mg/dL POC Glucometer (50 to 500) mg/dL Lactic Acid (0.4-2.0) Calcium 9.2 (8.4-10.2) mg/dL Total Bilirubin 1.10 (0.2-1.3) mg/dL AST 128 H (17-59) U/L ALT 59 H (0-50) U/L Alkaline Phosphatase 193 H (38-126) U/L Troponin I (0.000-0.034) ng/mL Serum Total Protein 6.1 L (6.3-8.2) g/dL Albumin 2.9 L (3.5-5.0) g/dL Urine Color (Yellow) Urine Appearance (Clear) Urine pH (4.6-8.0) Ur Specific [place] (1.005-1.030) Urine Protein (Negative) Urine Glucose (UA) (Negative) mg/dL Urine Ketones (Negative) Urine Blood (Negative) Urine Nitrite (Negative) Urine Bilirubin (Negative) Urine Urobilinogen (0.2) mg/dL Ur Leukocyte Esterase (Negative) U Hyaline Cast (Auto) (0-2) /LPF Urine Microscopic RBC (0-5) /HPF Urine Microscopic WBC (0-5) /HPF Ur Epithelial Cells (None Seen) /HPF Urine Bacteria (None Seen) /HPF Urine Culture Reflexed (NO) 12/16/23 12/16/23 Range/Units 22:58 22:50 WBC (4.0-10.5) x10^3/uL RBC (4.1-5.6) x10^6/uL Hgb (12.5-18.0) g/dL Hct (42-50) % MCV (78-100) fL MCH (26-32) pg MCHC (32-36) g/dL RDW (11.5-14.0) % Plt Count (150-450) x10^3/uL MPV (7.5-11.0) fL Segmented Neutrophils (36.-66.) % Band Neutrophils (0.0-2.0) % Lymphocytes (Manual) (24-44) % Monocytes (Manual) (0.0-12.0) % Eosinophils (Manual) (0.00-3.0) % Toxic Granulation Platelet Estimate (NORMAL) RBC Morphology Anisocytosis Puncture Site pCO2 (35-45) mmHg pO2 (75-100) mmHg Base Excess (-2.0-2.0) O2 Saturation (94-100) g/dF ABG pH (7.35-7.45) ABG HCO3 (22-28) ABG O2 Sat (Measured) (95-100) % Phil Test A-a Gradient a/A Ratio Hemoglobin Carboxyhemoglobin (0.0-6.9) % THgb Methemoglobin (1.4-1.5) % Potassium (3.5-5.1) Temperature C POC O2 Flow Rate % Sodium (135-145) mmol/L Chloride (98-107) mmol/L Carbon Dioxide (22-30) mmol/L Anion Gap (5-15) MEQ/L BUN (9-20) mg/dL Creatinine (0.66-1.25) mg/dL Estimated GFR ML/MIN Glucose (74-106) mg/dL POC Glucometer 518 H* (50 to 500) mg/dL Lactic Acid 3.6 H (0.4-2.0) Calcium (8.4-10.2) mg/dL Total Bilirubin (0.2-1.3) mg/dL AST (17-59) U/L ALT (0-50) U/L Alkaline Phosphatase (38-126) U/L Troponin I (0.000-0.034) ng/mL Serum Total Protein (6.3-8.2) g/dL Albumin (3.5-5.0) g/dL Urine Color (Yellow) Urine Appearance (Clear) Urine pH (4.6-8.0) Ur Specific [place] (1.005-1.030) Urine Protein (Negative) Urine Glucose (UA) (Negative) mg/dL Urine Ketones (Negative) Urine Blood (Negative) Urine Nitrite (Negative) Urine Bilirubin (Negative) Urine Urobilinogen (0.2) mg/dL Ur Leukocyte Esterase (Negative) U Hyaline Cast (Auto) (0-2) /LPF Urine Microscopic RBC (0-5) /HPF Urine Microscopic WBC (0-5) /HPF Ur Epithelial Cells (None Seen) /HPF Urine Bacteria (None Seen) /HPF Urine Culture Reflexed (NO) - Progress Progress: improved, re-examined Progress Note: 12/16/23 23:36 continues to be altered large wound on left buttock, purulent fluid from scrotum wbc 21k, lactic 3.6, BG 518 ABG showed ph 7.44, pO2 240 CT head pending 12/17/23 00:03 Pt started on levophed drip for hypotension at 23:04 MAP > 65 since levo started O2 sat 99% on 10L venti mask, RR 30 received call from radiology stating head CT was negative for acute stroke 12/17/23 00:26 blood cx ordered, will start vanc/zosyn empirically 12/17/23 00:43 I spoke w/ Dr Livingston regarding pt case - he agrees to accept for ICU admission 12/17/23 02:04 pt pending transfer to ICU, arterial line to be placed by anesthesia for closer BP monitoring - inconsistent readings on automatic bp cuff w/ significant hypotension 12/17/23 02:27 repeat troponin 0.4 - likely 2/2 demand ischemia i discussed increasing trop w/ Dr Livingston per nursing staff request - he states it is appropriate to keep pt at [facility], no need for transfer 12/17/23 05:30 pt received radial art line and central venous catheter in ED pt transferred taken to ICU Will see patient in: hospital (full admit) (ICU) Counseled pt/family regarding: lab results, diagnosis, rad results (unable to reach family, pt still altered) Medical Desision Making - Discussion of managment Care discussed with:: hospitalist Reviewed:: Test results, Need for additional workup Agreed on:: Treatment plan, decision to admit Will see patient: in hospital (ICU) - Diagnostic Testing Diagnostic test were ordered, analyzed, and reviewed by me: Yes Radiological Interpretation: Interpreted by me, Reviewed by me, Teleradiologist Report - Risk of complications The pt has a mod risk of morbidity or mortality based on: Need for prescription drug management The pt has a high risk of morbidity or mortality based on: Decision regarding hospitilization or escalation of hosp level of care - Departure Departure Disposition: In-patient Admission (ICU) Clinical Impression: Sepsis associated hypotension, Elevated troponin, KENNETH (acute kidney injury) Hyperglycemia due to type 2 diabetes mellitus Qualifiers: Diabetes mellitus care home insulin use: with termite treater helper use Qualified Code(s): E11.65 - Type 2 diabetes mellitus with hyperglycemia AMS (altered mental status) Qualifiers: Altered mental status type: disorientation Qualified Code(s): R41.0 - Disorientation, unspecified Condition: Critical Critical Care Time: Yes Critical Care Time(excluding separately billable procedures): Critical 75-104 mins Referrals: IRVING HENRY MD [Primary Care Provider] - Follow up/PCP as directed
[2023-12-16 23:09] LABS: Hematocrit 38.3 % (42-50); Hemoglobin 12.6 g/dL (12.5-18.0); Mean Cell Volume 87.6 fL (78-100); Mean Corpuscular Hemoglobin 28.8 pg (26-32); Mean Corpuscular Hgb Concent. 32.9 g/dL (32-36); Mean Platelet Volume 11.6 fL (7.5-11.0); Platelet Count 483 x10^3/uL (150-450); Red Blood Count 4.37 x10^6/uL (4.1-5.6); Red Cell Distribution Width 13.5 % (11.5-14.0); White Blood Count 21.4 x10^3/uL (4.0-10.5)
[2023-12-16] MEDS ORDERED: HUMALOG ONE (23:17)
[2023-12-16] MEDS: HUMALOG SQ ONE (23:17)
[2023-12-16 23:21] LABS: ALBUMIN 2.9 g/dL (3.5-5.0); ANION GAP 20.2 MEQ/L (5-15); BILIRUBIN,TOTAL 1.1 mg/dL (0.2-1.3); Calcium 9.2 mg/dL (8.4-10.2); Creatinine 1 3.53 mg/dL (0.66-1.25); EST GLOMERULAR FILTRATION RATE 18.9 ML/MIN; Potassium 5.8 mmol/L (3.5-5.1); Total Protein 6.1 g/dL (6.3-8.2)
[2023-12-16 23:30] LABS: A-aADO2 413; ABG HEMOGLOBIN 13.3; ABG POTASSIUM 5.7 (3.5-5.1); ARTERIAL BLD GAS O2 SATURATION 99.5 % (95-100); ARTERIAL BLOOD GAS BASE EXCESS -0.5 (-2.0-2.0); ARTERIAL BLOOD GAS FIO2 100 %; ARTERIAL BLOOD GAS PCO2 34 mmHg (35-45); ARTERIAL BLOOD GAS PO2 258 mmHg (75-100); ARTERIAL BLOOD GAS pH 7.44 (7.35-7.45); CARBOXYHEMOGLOBIN 0.8 % THgb (0.0-6.9); HCO3- 23.1 (22-28); HGB O2 SAT 97.5 g/dF (94-100); Methhemoglobin 1.2 % (1.4-1.5); paO2 pAO1 0.38
[2023-12-16 23:31] LABS: ABG SITE LEFT BRACHIAL; ALLEN TEST OK? YES
[2023-12-16 23:39] LABS: BAND 12 % (0.0-2.0); Eosinophil 1 % (0.00-3.0); Lymphocytes 8 % (24-44); Monocyte 5 % (0.0-12.0); Neutrophils 74 % (36.-66.); Total Cells Counted 100
[2023-12-16 23:41] LABS: Platelet Estimate INCREASED (NORMAL); Toxic Granulation 1+
[2023-12-16 23:44] LABS: ANISOCYTOSIS 1+
[2023-12-16] MEDS ORDERED: Sodium Chloride 0.9% 1000 ML 1,000 ML ONE (23:48)
--- NOTE | 2023-12-17 00:13 | XRAY ---
CLINICAL HISTORY: AMS TECHNIQUE: An axial non-contrast CT scan of the brain was performed from the skull base to the high parietal region. COMPARISON: 09/01/2022. FINDINGS: No acute major territorial recent infarction or hemorrhage seen at present study. Chronic infarct noted in left fronto-parietal region extending up to the basifrontal region with mild ex vacuo dilatation of left lateral ventricle. Chronic infarcts noted in right estrada radiata and basal ganglio-capsular regions. There are hypodense areas noted in the subcortical and periventricular white matter bilaterally, suggestive of microvascular ischemic changes. The ventricular system, cortical sulci and basal cisterns are prominent consistent with senile changes. The rest of the visualized brain parenchyma shows normal appearance. Normal CT appearance of the posterior fossa structures namely the cerebellar hemispheres, brainstem and cerebellar peduncles. The IACs are unremarkable. The cerebello-pontine angles are clear. The osseous structures in the skull base are unremarkable. No definite calvarium fractures. The scanned paranasal sinuses are clear. Right sided nasal septal deviation noted. IMPRESSION: 1. No acute major recent territorial infarction or hemorrhage seen at present study. Early changes of stroke may not be detected on a CT scan. If strong clinical suspicion of stroke then suggest MRI with diffusion-weighted imaging. 2. Chronic infarct noted in left fronto-parietal region extending up to the basifrontal region with mild ex vacuo dilatation of left lateral ventricle. 3. Chronic infarcts noted in right estrada radiata and basal ganglio-capsular regions. 4. Chronic microvascular ischemic changes and senile changes. 5. No interval changes since the last study. [facility] ER was called at [phone] at 11:07 PM CARDIOPULMONARY TECHNOLOGIST, 12/16/2023 and negative stroke results were verbally communicated to Roberto Morocho. Electronically Signed by: Coty Ennis MD. (12/17/2023 00:09:30 EST)
[2023-12-17 00:20] LABS: Appearance Clear (Clear); Bacteria None Seen /HPF (None Seen); Bilirubin Negative (Negative); Blood Negative (Negative); Epithelial Cells Rare /HPF (None Seen); Glucose, Urine >=1000 mg/dL (Negative); Ketones Negative (Negative); Leukocyte Esterase Negative (Negative); Nitrite Negative (Negative); Protein,Urine Dip Trace (Negative); RBC 0-2 /HPF (0-5); Specific Gravity 1.025 (1.005-1.030); Urobilinogen 0.2 mg/dL (0.2)
[2023-12-17] MEDS ORDERED: PIPERACILLIN/TAZOBACTAM IV ONE (00:20)
[2023-12-17] MEDS ORDERED: Sodium Chloride 100ML MINI-BAG PLUS 100 ML IV ONE (00:21)
[2023-12-17 00:22] LABS: ADD URINE CULTURE? ORDERED SEPARATELY (NO)
[2023-12-17] MEDS: PIPERACILLIN/TAZOBACTAM 3.375 GM in Sodium Chloride 100ML MINI-BAG PLUS 100 ML IV ONE (00:23)
[2023-12-17] MEDS ORDERED: VANCOMYCIN 1 GRAM/200 ML BAG 1 GM/200 ML PIGGYBACK IV ONE (00:56)
[2023-12-17] MEDS ORDERED: TYLENOL 325 MG PO PRN (00:57)
[2023-12-17] MEDS: Sodium Chloride 0.9% 1000 ML 1,000 ML IV SCH (00:57)
[2023-12-17] MEDS ORDERED: HUMULIN R SQ PRN (00:57)
[2023-12-17] MEDS: VANCOMYCIN 1 GRAM/200 ML BAG 1 GM/200 ML PIGGYBACK IV ONE (00:57)
--- NOTE | 2023-12-17 01:07 | PCM.HP ---
History of Present Illness - Chief Complaint Chief Complaint: Sepsis History of Present Illness: is a 63 year old male with DMII, HTN, AFib, HLP, BPH brought in by EMS for c/o AMS. Family reports alter mental state > 12 hrs. He was lethargic, unable to respond to much. Here in the ER, he was found to have low BP, and high BS, admitted now to ICU for sepsis and hyperglycemia. He is now on levophed. On RA, no SOB. I saw him in his room via telemedicine. He is unable to give me any useful information due to his AMS - Review of Systems All Other Systems: Unable due to condition Medications & Allergies Home Medications: Home Medication List Atorvastatin Calcium [Lipitor 20MG Tablet] 20 mg PO HS 08/12/16 [History Confirmed 08/15/23] Duloxetine HCl 30 mg [Cymbalta 30 MG Capsule] 60 mg PO DAILY 08/12/16 [History Confirmed 08/15/23] Empagliflozin [Jardiance] 25 mg PO DAILY 08/12/16 [History Confirmed 08/15/23] Metformin HCl 1000 mg [Glucophage 1000 MG] 500 mg PO BID 08/12/16 [History Co nfirmed 08/15/23] Tamsulosin HCl 0.4 mg [Flomax 0.4 MG] 0.4 mg PO HS 03/11/22 [History Confirmed 08/15/23] Apixaban [Eliquis 2.5 mg Tablet] 5 mg PO BID 08/31/22 [History Confirmed 08/15/23] Furosemide 20 mg [Lasix 20 mg] 80 mg PO BID 08/31/22 [History Confirmed 08/15/23] Magnesium Oxide 400 mg [Mag-Ox 400] 400 mg PO TID 08/31/22 [History Confirmed 08/15/23] Potassium Chloride 40 meq PO DAILY 08/31/22 [History Confirmed 08/15/23] Potassium Chloride Tab* [Klor Con] 20 meq PO EVENING MEAL 08/31/22 [History Confirmed 08/15/23] Clonidine HCl 0.1 mg [Clonidine 0.1 mg Tablet] 0.2 mg PO TID 06/20/23 [History Confirmed 08/15/23] Diltiazem HCl [Cartia Xt] 120 mg PO DAILY 06/20/23 [History Confirmed 08/15/23] Gabapentin 600 mg PO BID 06/20/23 [History Confirmed 08/15/23] Hydralazine HCl 50 mg PO BID 06/20/23 [History Confirmed 08/15/23] Metoprolol Tartrate 50 mg [Lopressor 50 MG] 50 mg PO BID 06/20/23 [History Confirmed 08/15/23] Sacubitril/Valsartan [Entresto 49 mg-51 mg Tablet] 1 tablet PO BID 30 Days #60 tablet 06/25/23 [Rx Confirmed 08/15/23] Allergies/Adverse Reactions: Allergies Allergy/AdvReac Type Severity Reaction Status Date / Time No Known Drug Allergies Allergy Verified 06/21/23 02:16 - Past Medical History Past Medical History: Yes Neurological History: TIA ENT History: Other Cardiac History: Arrhythmia, Congestive Heart Failure, High Cholesterol, Hypertension, Other Respiratory History: No Pertinent History Endocrine Medical History: Diabetes Type II Musculoskelatal History: No Pertinent History GI Medical History: No Pertinent History History: No Pertinent History Pyscho-Social History: Anxiety, Depression Male Reproductive Disorders: No Pertinent History Comment: R SHOULDER INSTABILITY, A FIB - Past Surgical History Past Surgical History: Yes Neuro Surgical History: No Pertinent History Cardiac History: No Pertinent History Respiratory Surgery: No Pertinent History GI Surgical History: No Pertinent History Genitourinary Surgical Hx: No Pertinent History Musculskeletal Surgical Hx: Orthopedic Surgery Male Surgical History: No Pertinent History Other Surgical History: RIGHT shoulder Significant Family History: no pertinent family hx - Social History Smoking Status: Current every day smoker How long have you smoked: 40 Exposure to second hand smoke: Yes Alcohol: Rarely Drug Use: none - Social Determinants of Health Will the patient participate in the screening: Yes Do you worry about a steady place to live?: No In the past 12 months,have you had to go without utilities?: No Have you or anyone in your house had to go without enough: No Transportation Issues: No Has anyone in your support network made you feel unsafe?: No Does the patient want assistance with any of the above?: No - Physical Exam Vital Signs: Vital Signs - 24 hr Pulse Resp BP Pulse Ox 12/17/23 00:11 101 H 33 H 84/46 100 12/17/23 00:06 99 H 31 H 76/56 98 12/17/23 00:00 100 H 37 H 90/58 12/16/23 23:55 98 H 24 97/63 12/16/23 23:50 94 H 31 H 87/63 12/16/23 23:49 94 H 24 12/16/23 23:48 102 H 24 12/16/23 23:22 100 H 22 89/47 12/16/23 23:16 90/49 General Appearance: no apparent distress, lethargy Neurologic Exam: confusion Eye Exam: PERRL/EOMI Ears, Nose, Throat Exam: normal ENT inspection Neck Exam: normal inspection, supple Respiratory Exam: normal breath sounds, lungs clear Cardiovascular Exam: irregular Gastrointestinal/Abdomen Exam: soft, normal bowel sounds Rectal Exam: deferred Back Exam: normal inspection Extremity Exam: normal inspection Skin Exam: decubitus Results - Labs Lab/Micro Results: Lab Results-Last 24 Hours 12/16/23 12/16/23 12/16/23 Range/Units 22:50 22:58 22:58 WBC (4.0-10.5) x10^3/uL RBC (4.1-5.6) x10^6/uL Hgb (12.5-18.0) g/dL Hct (42-50) % MCV (78-100) fL MCH (26-32) pg MCHC (32-36) g/dL RDW (11.5-14.0) % Plt Count (150-450) x10^3/uL MPV (7.5-11.0) fL Segmented Neutrophils (36.-66.) % Band Neutrophils (0.0-2.0) % Lymphocytes (Manual) (24-44) % Monocytes (Manual) (0.0-12.0) % Eosinophils (Manual) (0.00-3.0) % Toxic Granulation Platelet Estimate (NORMAL) RBC Morphology Anisocytosis Puncture Site LEFT BRACHIAL pCO2 34 L (35-45) mmHg pO2 258 H* (75-100) mmHg Base Excess -0.5 (-2.0-2.0) O2 Saturation 97.5 (94-100) g/dF ABG pH 7.44 (7.35-7.45) ABG HCO3 23.1 (22-28) ABG O2 Sat (Measured) 99.5 (95-100) % Phil Test YES A-a Gradient 413 a/A Ratio 0.38 Hemoglobin 13.3 Carboxyhemoglobin 0.8 (0.0-6.9) % THgb Methemoglobin 1.2 L (1.4-1.5) % Potassium 5.7 H (3.5-5.1) Temperature 37.0 C POC O2 Flow Rate 100 % Sodium (135-145) mmol/L Chloride (98-107) mmol/L Carbon Dioxide (22-30) mmol/L Anion Gap (5-15) MEQ/L BUN (9-20) mg/dL Creatinine (0.66-1.25) mg/dL Estimated GFR ML/MIN Glucose (74-106) mg/dL POC Glucometer 518 H* (50 to 500) mg/dL Lactic Acid 3.6 H (0.4-2.0) Calcium (8.4-10.2) mg/dL Total Bilirubin (0.2-1.3) mg/dL AST (17-59) U/L ALT (0-50) U/L Alkaline Phosphatase (38-126) U/L Troponin I (0.000-0.034) ng/mL Serum Total Protein (6.3-8.2) g/dL Albumin (3.5-5.0) g/dL Urine Color (Yellow) Urine Appearance (Clear) Urine pH (4.6-8.0) Ur Specific [place] (1.005-1.030) Urine Protein (Negative) Urine Glucose (UA) (Negative) mg/dL Urine Ketones (Negative) Urine Blood (Negative) Urine Nitrite (Negative) Urine Bilirubin (Negative) Urine Urobilinogen (0.2) mg/dL Ur Leukocyte Esterase (Negative) U Hyaline Cast (Auto) (0-2) /LPF Urine Microscopic RBC (0-5) /HPF Urine Microscopic WBC (0-5) /HPF Ur Epithelial Cells (None Seen) /HPF Urine Bacteria (None Seen) /HPF Urine Culture Reflexed (NO) 12/16/23 12/16/23 12/16/23 Range/Units 23:00 23:00 23:00 WBC 21.4 H (4.0-10.5) x10^3/uL RBC 4.37 (4.1-5.6) x10^6/uL Hgb 12.6 (12.5-18.0) g/dL Hct 38.3 L (42-50) % MCV 87.6 (78-100) fL MCH 28.8 (26-32) pg MCHC 32.9 (32-36) g/dL RDW 13.5 (11.5-14.0) % Plt Count 483 H (150-450) x10^3/uL MPV 11.6 H (7.5-11.0) fL Segmented Neutrophils 74 H (36.-66.) % Band Neutrophils 12 H (0.0-2.0) % Lymphocytes (Manual) 8 L (24-44) % Monocytes (Manual) 5 (0.0-12.0) % Eosinophils (Manual) 1 (0.00-3.0) % Toxic Granulation 1+ Platelet Estimate INCREASED (NORMAL) RBC Morphology ABNORMAL Anisocytosis 1+ Puncture Site pCO2 (35-45) mmHg pO2 (75-100) mmHg Base Excess (-2.0-2.0) O2 Saturation (94-100) g/dF ABG pH (7.35-7.45) ABG HCO3 (22-28) ABG O2 Sat (Measured) (95-100) % Phil Test A-a Gradient a/A Ratio Hemoglobin Carboxyhemoglobin (0.0-6.9) % THgb Methemoglobin (1.4-1.5) % Potassium 5.8 H (3.5-5.1) Temperature C POC O2 Flow Rate % Sodium 124 L (135-145) mmol/L Chloride 91 L (98-107) mmol/L Carbon Dioxide 19 L (22-30) mmol/L Anion Gap 20.2 H (5-15) MEQ/L BUN 76 H (9-20) mg/dL Creatinine 3.53 H (0.66-1.25) mg/dL Estimated GFR 18.9 ML/MIN Glucose 514 H* (74-106) mg/dL POC Glucometer (50 to 500) mg/dL Lactic Acid (0.4-2.0) Calcium 9.2 (8.4-10.2) mg/dL Total Bilirubin 1.10 (0.2-1.3) mg/dL AST 128 H (17-59) U/L ALT 59 H (0-50) U/L Alkaline Phosphatase 193 H (38-126) U/L Troponin I 0.235 H* (0.000-0.034) ng/mL Serum Total Protein 6.1 L (6.3-8.2) g/dL Albumin 2.9 L (3.5-5.0) g/dL Urine Color (Yellow) Urine Appearance (Clear) Urine pH (4.6-8.0) Ur Specific [place] (1.005-1.030) Urine Protein (Negative) Urine Glucose (UA) (Negative) mg/dL Urine Ketones (Negative) Urine Blood (Negative) Urine Nitrite (Negative) Urine Bilirubin (Negative) Urine Urobilinogen (0.2) mg/dL Ur Leukocyte Esterase (Negative) U Hyaline Cast (Auto) (0-2) /LPF Urine Microscopic RBC (0-5) /HPF Urine Microscopic WBC (0-5) /HPF Ur Epithelial Cells (None Seen) /HPF Urine Bacteria (None Seen) /HPF Urine Culture Reflexed (NO) 12/16/23 12/17/23 Range/Units 23:58 00:01 WBC (4.0-10.5) x10^3/uL RBC (4.1-5.6) x10^6/uL Hgb (12.5-18.0) g/dL Hct (42-50) % MCV (78-100) fL MCH (26-32) pg MCHC (32-36) g/dL RDW (11.5-14.0) % Plt Count (150-450) x10^3/uL MPV (7.5-11.0) fL Segmented Neutrophils (36.-66.) % Band Neutrophils (0.0-2.0) % Lymphocytes (Manual) (24-44) % Monocytes (Manual) (0.0-12.0) % Eosinophils (Manual) (0.00-3.0) % Toxic Granulation Platelet Estimate (NORMAL) RBC Morphology Anisocytosis Puncture Site pCO2 (35-45) mmHg pO2 (75-100) mmHg Base Excess (-2.0-2.0) O2 Saturation (94-100) g/dF ABG pH (7.35-7.45) ABG HCO3 (22-28) ABG O2 Sat (Measured) (95-100) % Phil Test A-a Gradient a/A Ratio Hemoglobin Carboxyhemoglobin (0.0-6.9) % THgb Methemoglobin (1.4-1.5) % Potassium (3.5-5.1) Temperature C POC O2 Flow Rate % Sodium (135-145) mmol/L Chloride (98-107) mmol/L Carbon Dioxide (22-30) mmol/L Anion Gap (5-15) MEQ/L BUN (9-20) mg/dL Creatinine (0.66-1.25) mg/dL Estimated GFR ML/MIN Glucose (74-106) mg/dL POC Glucometer 475 H (50 to 500) mg/dL Lactic Acid (0.4-2.0) Calcium (8.4-10.2) mg/dL Total Bilirubin (0.2-1.3) mg/dL AST (17-59) U/L ALT (0-50) U/L Alkaline Phosphatase (38-126) U/L Troponin I (0.000-0.034) ng/mL Serum Total Protein (6.3-8.2) g/dL Albumin (3.5-5.0) g/dL Urine Color Yellow (Yellow) Urine Appearance Clear (Clear) Urine pH 5.0 (4.6-8.0) Ur Specific [place] 1.025 (1.005-1.030) Urine Protein Trace A (Negative) Urine Glucose (UA) >=1000 A (Negative) mg/dL Urine Ketones Negative (Negative) Urine Blood Negative (Negative) Urine Nitrite Negative (Negative) Urine Bilirubin Negative (Negative) Urine Urobilinogen 0.2 (0.2) mg/dL Ur Leukocyte Esterase Negative (Negative) U Hyaline Cast (Auto) 11-20 (0-2) /LPF Urine Microscopic RBC 0-2 (0-5) /HPF Urine Microscopic WBC 6-10 A (0-5) /HPF Ur Epithelial Cells Rare (None Seen) /HPF Urine Bacteria None Seen (None Seen) /HPF Urine Culture Reflexed ORDERED SEPARATELY (NO) Accuchecks Date 12/16/23 Time 23:58 - Radiology Impressions Radiology Exams & Impressions: Radiology Procedures Category Date Time Status CHEST 1 VIEW (PORTABLE) Stat Exams 12/16/23 23:02 Taken HEAD WITHOUT CONTRAST [CT] Stat Exams 12/16/23 23:14 Completed Assessment/Plan (1) Septic shock Current Visit: Yes Status: Acute Assessment & Plan: Sourcce of infection likely from sacral decub ulcers. Will need local wound care, culture and BC as well. Zosyn and vanc started. Pharmacy to help dose vanc in setting of KENNETH. Pressor support to keep MAP > 65. On Levophed. 2Ls NS bolus given in ER, on NA at 125ml/hr now Code(s): A41.9 - SEPSIS, UNSPECIFIED ORGANISM; R65.21 - SEVERE SEPSIS WITH SEPTIC SHOCK (2) Sacral decubitus ulcer Current Visit: Yes Status: Acute Assessment & Plan: Likely the source of infection. He will need local wound care. ABXs as above Code(s): L89.159 - PRESSURE ULCER OF SACRAL REGION, UNSPECIFIED STAGE (3) AMS (altered mental status) Current Visit: Yes Status: Acute Assessment & Plan: Acute metabolic encephalopathy due to hyperglycemia, infection/sepsis. Treating each of these and monitoring progress. NPO until bedside swallow eval can be done Code(s): R41.82 - ALTERED MENTAL STATUS, UNSPECIFIED (4) Metabolic acidosis Current Visit: Yes Status: Acute Assessment & Plan: Likely due to KENNETH, lactic acidosis. Treating sepsis to improve lactic acidosis. IVF for KENNETH. Holding Metformin, ACEI/ARB Code(s): E87.20 - ACIDOSIS, UNSPECIFIED (5) KENNETH (acute kidney injury) Current Visit: Yes Status: Acute Assessment & Plan: ATN from sepsis, hypotension. IVF started. Holding diuretic, ARB/ACEI. Dosing vanc and zosyn accordingly. Monitor strict ins and outs Code(s): N17.9 - ACUTE KIDNEY FAILURE, UNSPECIFIED (6) Hyponatremia Current Visit: Yes Status: Acute Assessment & Plan: Na 122-123, BS 500s. Corrected Na closer to 128-129. On NS Code(s): E87.1 - HYPO-OSMOLALITY AND HYPONATREMIA (7) Hyperkalemia Current Visit: Yes Status: Acute Assessment & Plan: K is 5.8 due to KENNETH, ARB and K supplement at home - holding K, ARB/ACEI. IVF for KENNETH. Monitor Code(s): E87.5 - HYPERKALEMIA (8) Atrial fibrillation Current Visit: No Status: Acute Qualifiers: Atrial fibrillation type: paroxysmal Qualified Code(s): I48.0 - Paroxysmal atrial fibrillation Assessment & Plan: HR is controlled. Continue Eliquis. Holding BB and Diltiazem for now due to hypotension from sepsis Code(s): I48.91 - UNSPECIFIED ATRIAL FIBRILLATION (9) Hyperglycemia Current Visit: No Status: Acute Assessment & Plan: DMII with hyperglycemia. Gap is high but likely due to lactic acidosis and KENNETH. pH 7.44. On IVF, and moderate dose SSI. BS every 4hrs Code(s): R73.9 - HYPERGLYCEMIA, UNSPECIFIED Telemedicine Encounter - Telemedicine Encounter Telemedicine Encounter: The entirety of this encounter was performed via Telemedicine" He is unable to give me verbal consent due to his AMS
[2023-12-17] MEDS ORDERED: Sodium Chloride 0.9% 500 ML 500 ML IV ONE (02:48)
[2023-12-17 04:49] LABS: A-aADO2 245; ABG POTASSIUM 5.5 (3.5-5.1); ARTERIAL BLD GAS O2 SATURATION 99.7 % (95-100); ARTERIAL BLOOD GAS BASE EXCESS -1.1 (-2.0-2.0); ARTERIAL BLOOD GAS FIO2 60 %; ARTERIAL BLOOD GAS PCO2 34 mmHg (35-45); ARTERIAL BLOOD GAS PO2 140 mmHg (75-100); ARTERIAL BLOOD GAS pH 7.43 (7.35-7.45); CARBOXYHEMOGLOBIN 0.9 % THgb (0.0-6.9); HCO3- 22.6 (22-28); Methhemoglobin 0.8 % (1.4-1.5); paO2 pAO1 0.36
[2023-12-17 04:50] LABS: ABG SITE Art Line; ALLEN TEST OK? yes
--- NOTE | 2023-12-17 06:00 | XRAY ---
CLINICAL HISTORY: central line placement TECHNIQUE: X-ray chest frontal projection. COMPARISON: X-ray dated 06/20/2023 FINDINGS: Poor inspiratory effort and the patient is not centralized. the central line is seen in place with its tips at the junction of the SVC and right atrium. Marked interval improvement in the creation of the right lung with resolution of the previously seen right lung opacities. Reduced volume on the left lower lung lobe with elevation of the left hemidiaphragm compared to the previous x-ray. Re-demonstration of the cardiomegaly noted. No sizable pleural effusion seen on the current exam. No significant mediastinal shift was seen. No fracture or bony pathology was seen. No pneumothorax seen. IMPRESSION: 1. The central line is seen in place. 2. No pneumothorax seen. 3. Marked interval improvement in the aereation of the right lung with resolution of the previously seen right lung opacities. 4. Reduced volume on the left lower lung lobe with elevation of the left hemidiaphragm compared to the previous x-ray. 5. Advised clinical correlation. Electronically Signed by: Coty Ennis MD. (12/17/2023 05:57:05 EST)
[2023-12-17 06:23] LABS: Hematocrit 39.7 % (42-50); Hemoglobin 13.5 g/dL (12.5-18.0); Mean Cell Volume 86.3 fL (78-100); Mean Corpuscular Hemoglobin 29.3 pg (26-32); Platelet Count 485 x10^3/uL (150-450); Red Cell Distribution Width 13.7 % (11.5-14.0)
[2023-12-17 07:16] LABS: White Blood Count 26.4 x10^3/uL (4.0-10.5)
[2023-12-17 07:56] LABS: ALBUMIN 3.1 g/dL (3.5-5.0); ANION GAP 18.6 MEQ/L (5-15); BILIRUBIN,TOTAL 1.1 mg/dL (0.2-1.3); Calcium 9.3 mg/dL (8.4-10.2); Creatinine 1 3.2 mg/dL (0.66-1.25); EST GLOMERULAR FILTRATION RATE 21.2 ML/MIN; PREALBUMIN 5.08 mg/dL (17.6-36.0); Potassium 5.3 mmol/L (3.5-5.1); Total Protein 6.7 g/dL (6.3-8.2)
--- NOTE | 2023-12-17 08:01 | XRAY ---
Indication: Hypoxia. Comparison: August 15, 2023 Portable chest less inflated with interval clearing right lung pleural parenchymal opacity. New mild left base subsegmental atelectasis/scarring. Remaining heart and lungs unremarkable. Bony thorax intact.
[2023-12-17] MEDS: HUMALOG SQ PRN (09:14)
[2023-12-17] MEDS ORDERED: SODIUM BICARBONATE PO ONE (10:00)
[2023-12-17] MEDS: Sodium Bicarbonate 50 MEQ/50 ML VIAL*** 150 MEQ in Dextrose 5%/Water IV Soln. 1000 ML 1... IV SCH (10:11)
[2023-12-17 10:41] LABS: ALBUMIN 3.1 g/dL (3.5-5.0); ANION GAP 16.2 MEQ/L (5-15); BILIRUBIN,TOTAL 1.1 mg/dL (0.2-1.3); Calcium 9.5 mg/dL (8.4-10.2); Creatinine 1 3.39 mg/dL (0.66-1.25); EST GLOMERULAR FILTRATION RATE 19.8 ML/MIN; Total Protein 6.8 g/dL (6.3-8.2)
[2023-12-17] MEDS: ELIQUIS 2.5 MG TABLET PO SCH (11:02)
[2023-12-17] MEDS: JARDIANCE PO SCH (11:04)
[2023-12-17] MEDS: Cymbalta 30 MG Capsule PO SCH (11:08)
[2023-12-17] MEDS: VANCOCIN INJECTION*** 1 GM in Sodium Chloride 0.9% 250 ML 250 ML IV SCH (11:14)
[2023-12-17] MEDS: Piperacillin/Tazobactam 2.25 GM 2.25 GM in Sodium Chloride 100ML MINI-BAG PLUS 100 ML IV SCH (11:15)
[2023-12-17 11:30] LABS: Barbiturate,Urine NEGATIVE (NEGATIVE); Benzodiazepine,Urine NEGATIVE (NEGATIVE); Cocaine,Urine NEGATIVE (NEGATIVE); Methadone,Urine NEGATIVE (NEGATIVE); Opiate,Urine NEGATIVE (NEGATIVE); PCP,Urine NEGATIVE (NEGATIVE); THC,Urine NEGATIVE (NEGATIVE)
--- NOTE | 2023-12-17 11:51 | PCM.NOTE ---
Mr. Cornejo is a 63 yo male with pmhx of PMHX of TIA, AFIB (on cardizem/lopressor/Eliquis), HTN, DM 2, anxiety, depression, and non-compliance with medication regimen who presented to ER 12/16/23 by EMS for AMS. Family reports alter mental state > 12 hrs. He was lethargic, unable to respond to much. In ED patient was found to be in septic shock and hyperglycemic. Source of infection likely from sacral decub ulcers. Zosyn and vanc started. Pressor support to keep MAP > 65. On Levophed. 3Ls NS bolus given in ER, on NA at 125ml/hr. Bicarb drip initiated. LA now WNL. Blood/urine/wound cultures pending. Mentation improving. WBC trending up, now at 26.4. Creat levels at 3.39. Patient also found with bilateral necrotic great toes, mottling. Patient to transfer to higher level of care with septic shock, KENNETH with creat levels at 3.39, will need wound care with possible surgical intervention, multiple collaboration with wound, ID, nephrology, and surgery. Pending acceptance for transfer.
[2023-12-17 11:54] LABS: Amphetamine,Urine POSITIVE (NEGATIVE)
[2023-12-17 12:45] LABS: Vitamin B12 > 1000 pg/mL (239-931)
--- NOTE | 2023-12-17 12:47 | PCM.DS ---
Discharge Summary Date of Admission: 12/17/23 05:42 Date of Discharge: 12/17/23 Admitting Physician: CHECO BYNUM DO Consults: Consults on Case 12/17/23 09:01 Consult Podiatry ROUTINE 12/17/23 09:26 Consult Surgery ROUTINE Primary Care Provider: IRVING HENRY Allergies Allergies No Known Drug Allergies Allergy (Verified 12/17/23 06:22) Hospital Summary - Hospital Course Hospital Course: Mr. Cornejo is a 63 yo male with pmhx of PMHX of TIA, AFIB (on cardizem/lopressor/Eliquis), HTN, DM 2, anxiety, depression, and non-compliance with medication regimen who presented to ER 12/16/23 by EMS for AMS. Family reports alter mental state > 12 hrs. He was lethargic, unable to respond to much . In ED patient was found to be in septic shock and hyperglycemic. Source of infection likely from sacral decub ulcers. Zosyn and vanc started. Pressor support to keep MAP > 65. On Levophed. 3Ls NS bolus given in ER, on NA at 125ml/hr. Bicarb drip initiated. LA now WNL. Blood/urine/wound cultures pending. WBC trending up, now at 26.4. Creat levels at 3.39. Patient has large sacral decubitus. Surgery has seen and recommends transfer for care of this. Mentation improving. Note elevated LFT likely due to hypotension. BS was markedly elevated on admission but now improved. Patient has ischemic toes which could be embolic. Patient will be transferred to higher level of care for complex medical problems. Discharge Note New Diagnosis: septic shock Latest Assessment & Plan (1) Septic shock Current Visit: Yes Status: Acute Assessment & Plan: Sourcce of infection likely from sacral decub ulcers. Will need local wound care, culture and BC as well. Zosyn and vanc started. Pharmacy to help dose vanc in setting of KENNETH. Pressor support to keep MAP > 65. On Levophed. 2Ls NS bolus given in ER, on NA at 125ml/hr now Code(s): A41.9 - SEPSIS, UNSPECIFIED ORGANISM; R65.21 - SEVERE SEPSIS WITH SEPTIC SHOCK (2) Sacral decubitus ulcer Current Visit: Yes Status: Acute Assessment & Plan: Likely the source of infection. He will need local wound care. ABXs as above Code(s): L89.159 - PRESSURE ULCER OF SACRAL REGION, UNSPECIFIED STAGE (3) AMS (altered mental status) Current Visit: Yes Status: Acute Assessment & Plan: Acute metabolic encephalopathy due to hyperglycemia, infection/sepsis. Treating each of these and monitoring progress. NPO until bedside swallow eval can be done Code(s): R41.82 - ALTERED MENTAL STATUS, UNSPECIFIED (4) Metabolic acidosis Current Visit: Yes Status: Acute Assessment & Plan: Likely due to KENNETH, lactic acidosis. Treating sepsis to improve lactic acidosis. IVF for KENNETH. Holding Metformin, ACEI/ARB Code(s): E87.20 - ACIDOSIS, UNSPECIFIED (5) KENNETH (acute kidney injury) Current Visit: Yes Status: Acute Assessment & Plan: ATN from sepsis, hypotension. IVF started. Holding diuretic, ARB/ACEI. Dosing vanc and zosyn accordingly. Monitor strict ins and outs Code(s): N17.9 - ACUTE KIDNEY FAILURE, UNSPECIFIED (6) Hyponatremia Current Visit: Yes Status: Acute Assessment & Plan: Na 122-123, BS 500s. Corrected Na closer to 128-129. On NS Code(s): E87.1 - HYPO-OSMOLALITY AND HYPONATREMIA (7) Hyperkalemia Current Visit: Yes Status: Acute Assessment & Plan: K is 5.8 due to KENNETH, ARB and K supplement at home - holding K, ARB/ACEI. IVF for KENNETH. Monitor Code(s): E87.5 - HYPERKALEMIA (8) Atrial fibrillation Current Visit: No Status: Acute Qualifiers: Atrial fibrillation type: paroxysmal Qualified Code(s): I48.0 - Paroxysmal atrial fibrillation Assessment & Plan: HR is controlled. Continue Eliquis. Holding BB and Diltiazem for now due to hypotension from sepsis Code(s): I48.91 - UNSPECIFIED ATRIAL FIBRILLATION (9) Hyperglycemia Current Visit: No Status: Acute Assessment & Plan: DMII with hyperglycemia. Gap is high but likely due to lactic acidosis and KENNETH. pH 7.44. On IVF, and moderate dose SSI. BS every 4hrs Code(s): R73.9 - HYPERGLYCEMIA, UNSPECIFIED I spent 35 minutes [id number] with the patient on the day of discharge performing discharge exam, discussing hospital stay and discharge instructions with patient and caregivers, preparation of discharge records, prescriptions & referral forms and addressing any questions/concerns the patient had as docu mented above. - Vitals & Intake/Output Vital Signs: Vital Signs Temperature 97.5 F 12/17/23 08:15 Pulse Rate 110 H 12/17/23 08:00 Respiratory Rate 30 H 12/17/23 08:00 Blood Pressure 130/83 12/17/23 08:00 O2 Sat by Pulse Oximetry 88 L 12/17/23 08:00 Intake & Output: Intake & Output 12/15/23 12/16/23 12/17/23 12/18/23 11:59 11:59 11:59 12:59 Output Total 1025 Balance -1025 Weight 109 kg - Lab Result Diagrams: 12/17/23 06:21 12/17/23 10:20 Lab Results-Last 24 Hrs: Lab Results-Last 24 Hours 12/16/23 12/16/23 12/16/23 Range/Units 22:50 22:58 22:58 WBC (4.0-10.5) x10^3/uL RBC (4.1-5.6) x10^6/uL Hgb (12.5-18.0) g/dL Hct (42-50) % MCV (78-100) fL MCH (26-32) pg MCHC (32-36) g/dL RDW (11.5-14.0) % Plt Count (150-450) x10^3/uL MPV (7.5-11.0) fL Segmented Neutrophils (36.-66.) % Band Neutrophils (0.0-2.0) % Lymphocytes (Manual) (24-44) % Monocytes (Manual) (0.0-12.0) % Eosinophils (Manual) (0.00-3.0) % Toxic Granulation Platelet Estimate (NORMAL) RBC Morphology Anisocytosis Puncture Site LEFT BRACHIAL pCO2 34 L (35-45) mmHg pO2 258 H* (75-100) mmHg Base Excess -0.5 (-2.0-2.0) O2 Saturation 97.5 (94-100) g/dF ABG pH 7.44 (7.35-7.45) ABG HCO3 23.1 (22-28) ABG O2 Sat (Measured) 99.5 (95-100) % Phil Test YES A-a Gradient 413 a/A Ratio 0.38 Hemoglobin 13.3 Carboxyhemoglobin 0.8 (0.0-6.9) % THgb Methemoglobin 1.2 L (1.4-1.5) % Potassium 5.7 H (3.5-5.1) Temperature 37.0 C POC O2 Flow Rate 100 % Sodium (135-145) mmol/L Chloride (98-107) mmol/L Carbon Dioxide (22-30) mmol/L Anion Gap (5-15) MEQ/L BUN (9-20) mg/dL Creatinine (0.66-1.25) mg/dL Estimated GFR ML/MIN Glucose (74-106) mg/dL POC Glucometer 518 H* (50 to 500) mg/dL Hemoglobin A1c (4.5-6.0) % Lactic Acid 3.6 H (0.4-2.0) Calcium (8.4-10.2) mg/dL Total Bilirubin (0.2-1.3) mg/dL AST (17-59) U/L ALT (0-50) U/L Alkaline Phosphatase (38-126) U/L Ammonia (9-30) umol/L Troponin I (0.000-0.034) ng/mL Serum Total Protein (6.3-8.2) g/dL Albumin (3.5-5.0) g/dL Prealbumin (17.6-36.0) mg/dL Urine Color (Yellow) Urine Appearance (Clear) Urine pH (4.6-8.0) Ur Specific Rosman (1.005-1.030) Urine Protein (Negative) Urine Glucose (UA) (Negative) mg/dL Urine Ketones (Negative) Urine Blood (Negative) Urine Nitrite (Negative) Urine Bilirubin (Negative) Urine Urobilinogen (0.2) mg/dL Ur Leukocyte Esterase (Negative) U Hyaline Cast (Auto) (0-2) /LPF Urine Microscopic RBC (0-5) /HPF Urine Microscopic WBC (0-5) /HPF Ur Epithelial Cells (None Seen) /HPF Urine Bacteria (None Seen) /HPF Urine Culture Reflexed (NO) Urine Opiates Level (NEGATIVE) Ur Methadone (NEGATIVE) Urine Barbiturates (NEGATIVE) Ur Phencyclidine (PCP) (NEGATIVE) Urine Amphetamine (NEGATIVE) U Benzodiazepine Level (NEGATIVE) Urine Cocaine (NEGATIVE) Urine Marijuana (THC) (NEGATIVE) 12/16/23 12/16/23 12/16/23 Range/Units 23:00 23:00 23:00 WBC 21.4 H (4.0-10.5) x10^3/uL RBC 4.37 (4.1-5.6) x10^6/uL Hgb 12.6 (12.5-18.0) g/dL Hct 38.3 L (42-50) % MCV 87.6 (78-100) fL MCH 28.8 (26-32) pg MCHC 32.9 (32-36) g/dL RDW 13.5 (11.5-14.0) % Plt Count 483 H (150-450) x10^3/uL MPV 11.6 H (7.5-11.0) fL Segmented Neutrophils 74 H (36.-66.) % Band Neutrophils 12 H (0.0-2.0) % Lymphocytes (Manual) 8 L (24-44) % Monocytes (Manual) 5 (0.0-12.0) % Eosinophils (Manual) 1 (0.00-3.0) % Toxic Granulation 1+ Platelet Estimate INCREASED (NORMAL) RBC Morphology ABNORMAL Anisocytosis 1+ Puncture Site pCO2 (35-45) mmHg pO2 (75-100) mmHg Base Excess (-2.0-2.0) O2 Saturation (94-100) g/dF ABG pH (7.35-7.45) ABG HCO3 (22-28) ABG O2 Sat (Measured) (95-100) % Phil Test A-a Gradient a/A Ratio Hemoglobin Carboxyhemoglobin (0.0-6.9) % THgb Methemoglobin (1.4-1.5) % Potassium 5.8 H (3.5-5.1) Temperature C POC O2 Flow Rate % Sodium 124 L (135-145) mmol/L Chloride 91 L (98-107) mmol/L Carbon Dioxide 19 L (22-30) mmol/L Anion Gap 20.2 H (5-15) MEQ/L BUN 76 H (9-20) mg/dL Creatinine 3.53 H (0.66-1.25) mg/dL Estimated GFR 18.9 ML/MIN Glucose 514 H* (74-106) mg/dL POC Glucometer (50 to 500) mg/dL Hemoglobin A1c (4.5-6.0) % Lactic Acid (0.4-2.0) Calcium 9.2 (8.4-10.2) mg/dL Total Bilirubin 1.10 (0.2-1.3) mg/dL AST 128 H (17-59) U/L ALT 59 H (0-50) U/L Alkaline Phosphatase 193 H (38-126) U/L Ammonia (9-30) umol/L Troponin I 0.235 H* (0.000-0.034) ng/mL Serum Total Protein 6.1 L (6.3-8.2) g/dL Albumin 2.9 L (3.5-5.0) g/dL Prealbumin (17.6-36.0) mg/dL Urine Color (Yellow) Urine Appearance (Clear) Urine pH (4.6-8.0) Ur Specific Rosman (1.005-1.030) Urine Protein (Negative) Urine Glucose (UA) (Negative) mg/dL Urine Ketones (Negative) Urine Blood (Negative) Urine Nitrite (Negative) Urine Bilirubin (Negative) Urine Urobilinogen (0.2) mg/dL Ur Leukocyte Esterase (Negative) U Hyaline Cast (Auto) (0-2) /LPF Urine Microscopic RBC (0-5) /HPF Urine Microscopic WBC (0-5) /HPF Ur Epithelial Cells (None Seen) /HPF Urine Bacteria (None Seen) /HPF Urine Culture Reflexed (NO) Urine Opiates Level (NEGATIVE) Ur Methadone (NEGATIVE) Urine Barbiturates (NEGATIVE) Ur Phencyclidine (PCP) (NEGATIVE) Urine Amphetamine (NEGATIVE) U Benzodiazepine Level (NEGATIVE) Urine Cocaine (NEGATIVE) Urine Marijuana (THC) (NEGATIVE) 12/16/23 12/17/23 12/17/23 Range/Units 23:58 00:01 00:32 WBC (4.0-10.5) x10^3/uL RBC (4.1-5.6) x10^6/uL Hgb (12.5-18.0) g/dL Hct (42-50) % MCV (78-100) fL MCH (26-32) pg MCHC (32-36) g/dL RDW (11.5-14.0) % Plt Count (150-450) x10^3/uL MPV (7.5-11.0) fL Segmented Neutrophils (36.-66.) % Band Neutrophils (0.0-2.0) % Lymphocytes (Manual) (24-44) % Monocytes (Manual) (0.0-12.0) % Eosinophils (Manual) (0.00-3.0) % Toxic Granulation Platelet Estimate (NORMAL) RBC Morphology Anisocytosis Puncture Site pCO2 (35-45) mmHg pO2 (75-100) mmHg Base Excess (-2.0-2.0) O2 Saturation (94-100) g/dF ABG pH (7.35-7.45) ABG HCO3 (22-28) ABG O2 Sat (Measured) (95-100) % Phil Test A-a Gradient a/A Ratio Hemoglobin Carboxyhemoglobin (0.0-6.9) % THgb Methemoglobin (1.4-1.5) % Potassium (3.5-5.1) Temperature C POC O2 Flow Rate % Sodium (135-145) mmol/L Chloride (98-107) mmol/L Carbon Dioxide (22-30) mmol/L Anion Gap (5-15) MEQ/L BUN (9-20) mg/dL Creatinine (0.66-1.25) mg/dL Estimated GFR ML/MIN Glucose (74-106) mg/dL POC Glucometer 475 H (50 to 500) mg/dL Hemoglobin A1c (4.5-6.0) % Lactic Acid (0.4-2.0) Calcium (8.4-10.2) mg/dL Total Bilirubin (0.2-1.3) mg/dL AST (17-59) U/L ALT (0-50) U/L Alkaline Phosphatase (38-126) U/L Ammonia (9-30) umol/L Troponin I 0.401 H* (0.000-0.034) ng/mL Serum Total Protein (6.3-8.2) g/dL Albumin (3.5-5.0) g/dL Prealbumin (17.6-36.0) mg/dL Urine Color Yellow (Yellow) Urine Appearance Clear (Clear) Urine pH 5.0 (4.6-8.0) Ur Specific Rosman 1.025 (1.005-1.030) Urine Protein Trace A (Negative) Urine Glucose (UA) >=1000 A (Negative) mg/dL Urine Ketones Negative (Negative) Urine Blood Negative (Negative) Urine Nitrite Negative (Negative) Urine Bilirubin Negative (Negative) Urine Urobilinogen 0.2 (0.2) mg/dL Ur Leukocyte Esterase Negative (Negative) U Hyaline Cast (Auto) 11-20 (0-2) /LPF Urine Microscopic RBC 0-2 (0-5) /HPF Urine Microscopic WBC 6-10 A (0-5) /HPF Ur Epithelial Cells Rare (None Seen) /HPF Urine Bacteria None Seen (None Seen) /HPF Urine Culture Reflexed ORDERED SEPARATELY (NO) Urine Opiates Level (NEGATIVE) Ur Methadone (NEGATIVE) Urine Barbiturates (NEGATIVE) Ur Phencyclidine (PCP) (NEGATIVE) Urine Amphetamine (NEGATIVE) U Benzodiazepine Level (NEGATIVE) Urine Cocaine (NEGATIVE) Urine Marijuana (THC) (NEGATIVE) 12/17/23 12/17/23 12/17/23 Range/Units 01:33 04:45 06:21 WBC (4.0-10.5) x10^3/uL RBC (4.1-5.6) x10^6/uL Hgb (12.5-18.0) g/dL Hct (42-50) % MCV (78-100) fL MCH (26-32) pg MCHC (32-36) g/dL RDW (11.5-14.0) % Plt Count (150-450) x10^3/uL MPV (7.5-11.0) fL Segmented Neutrophils (36.-66.) % Band Neutrophils (0.0-2.0) % Lymphocytes (Manual) (24-44) % Monocytes (Manual) (0.0-12.0) % Eosinophils (Manual) (0.00-3.0) % Toxic Granulation Platelet Estimate (NORMAL) RBC Morphology Anisocytosis Puncture Site Art Line pCO2 34 L (35-45) mmHg pO2 140 H* (75-100) mmHg Base Excess -1.1 (-2.0-2.0) O2 Saturation 98.0 (94-100) g/dF ABG pH 7.43 (7.35-7.45) ABG HCO3 22.6 (22-28) ABG O2 Sat (Measured) 99.7 (95-100) % Phil Test yes A-a Gradient 245 a/A Ratio 0.36 Hemoglobin 14.0 Carboxyhemoglobin 0.9 (0.0-6.9) % THgb Methemoglobin 0.8 L (1.4-1.5) % Potassium 5.5 H (3.5-5.1) Temperature 37.0 C POC O2 Flow Rate 60 % Sodium (135-145) mmol/L Chloride (98-107) mmol/L Carbon Dioxide (22-30) mmol/L Anion Gap (5-15) MEQ/L BUN (9-20) mg/dL Creatinine (0.66-1.25) mg/dL Estimated GFR ML/MIN Glucose (74-106) mg/dL POC Glucometer (50 to 500) mg/dL Hemoglobin A1c (4.5-6.0) % Lactic Acid 1.7 (0.4-2.0) Calcium (8.4-10.2) mg/dL Total Bilirubin (0.2-1.3) mg/dL AST (17-59) U/L ALT (0-50) U/L Alkaline Phosphatase (38-126) U/L Ammonia (9-30) umol/L Troponin I 0.870 H* (0.000-0.034) ng/mL Serum Total Protein (6.3-8.2) g/dL Albumin (3.5-5.0) g/dL Prealbumin (17.6-36.0) mg/dL Urine Color (Yellow) Urine Appearance (Clear) Urine pH (4.6-8.0) Ur Specific Rosman (1.005-1.030) Urine Protein (Negative) Urine Glucose (UA) (Negative) mg/dL Urine Ketones (Negative) Urine Blood (Negative) Urine Nitrite (Negative) Urine Bilirubin (Negative) Urine Urobilinogen (0.2) mg/dL Ur Leukocyte Esterase (Negative) U Hyaline Cast (Auto) (0-2) /LPF Urine Microscopic RBC (0-5) /HPF Urine Microscopic WBC (0-5) /HPF Ur Epithelial Cells (None Seen) /HPF Urine Bacteria (None Seen) /HPF Urine Culture Reflexed (NO) Urine Opiates Level (NEGATIVE) Ur Methadone (NEGATIVE) Urine Barbiturates (NEGATIVE) Ur Phencyclidine (PCP) (NEGATIVE) Urine Amphetamine (NEGATIVE) U Benzodiazepine Level (NEGATIVE) Urine Cocaine (NEGATIVE) Urine Marijuana (THC) (NEGATIVE) 12/17/23 12/17/23 12/17/23 Range/Units 06:21 06:21 06:21 WBC 26.4 H* (4.0-10.5) x10^3/uL RBC 4.60 (4.1-5.6) x10^6/uL Hgb 13.5 (12.5-18.0) g/dL Hct 39.7 L (42-50) % MCV 86.3 (78-100) fL MCH 29.3 (26-32) pg MCHC 34.0 (32-36) g/dL RDW 13.7 (11.5-14.0) % Plt Count 485 H (150-450) x10^3/uL MPV 11.0 (7.5-11.0) fL Segmented Neutrophils (36.-66.) % Band Neutrophils (0.0-2.0) % Lymphocytes (Manual) (24-44) % Monocytes (Manual) (0.0-12.0) % Eosinophils (Manual) (0.00-3.0) % Toxic Granulation Platelet Estimate (NORMAL) RBC Morphology Anisocytosis Puncture Site pCO2 (35-45) mmHg pO2 (75-100) mmHg Base Excess (-2.0-2.0) O2 Saturation (94-100) g/dF ABG pH (7.35-7.45) ABG HCO3 (22-28) ABG O2 Sat (Measured) (95-100) % Phil Test A-a Gradient a/A Ratio Hemoglobin Carboxyhemoglobin (0.0-6.9) % THgb Methemoglobin (1.4-1.5) % Potassium 5.3 H (3.5-5.1) Temperature C POC O2 Flow Rate % Sodium 131 L D (135-145) mmol/L Chloride 101 (98-107) mmol/L Carbon Dioxide 17 L (22-30) mmol/L Anion Gap 18.6 H (5-15) MEQ/L BUN 78 H (9-20) mg/dL Creatinine 3.20 H (0.66-1.25) mg/dL Estimated GFR 21.2 ML/MIN Glucose 296 H (74-106) mg/dL POC Glucometer (50 to 500) mg/dL Hemoglobin A1c 11.24 H (4.5-6.0) % Lactic Acid (0.4-2.0) Calcium 9.3 (8.4-10.2) mg/dL Total Bilirubin 1.10 (0.2-1.3) mg/dL AST 249 H (17-59) U/L ALT 113 H (0-50) U/L Alkaline Phosphatase 209 H (38-126) U/L Ammonia (9-30) umol/L Troponin I (0.000-0.034) ng/mL Serum Total Protein 6.7 (6.3-8.2) g/dL Albumin 3.1 L (3.5-5.0) g/dL Prealbumin 5.08 L (17.6-36.0) mg/dL Urine Color (Yellow) Urine Appearance (Clear) Urine pH (4.6-8.0) Ur Specific Rosman (1.005-1.030) Urine Protein (Negative) Urine Glucose (UA) (Negative) mg/dL Urine Ketones (Negative) Urine Blood (Negative) Urine Nitrite (Negative) Urine Bilirubin (Negative) Urine Urobilinogen (0.2) mg/dL Ur Leukocyte Esterase (Negative) U Hyaline Cast (Auto) (0-2) /LPF Urine Microscopic RBC (0-5) /HPF Urine Microscopic WBC (0-5) /HPF Ur Epithelial Cells (None Seen) /HPF Urine Bacteria (None Seen) /HPF Urine Culture Reflexed (NO) Urine Opiates Level (NEGATIVE) Ur Methadone (NEGATIVE) Urine Barbiturates (NEGATIVE) Ur Phencyclidine (PCP) (NEGATIVE) Urine Amphetamine (NEGATIVE) U Benzodiazepine Level (NEGATIVE) Urine Cocaine (NEGATIVE) Urine Marijuana (THC) (NEGATIVE) 12/17/23 12/17/23 12/17/23 Range/Units 07:37 10:20 Unknown WBC (4.0-10.5) x10^3/uL RBC (4.1-5.6) x10^6/uL Hgb (12.5-18.0) g/dL Hct (42-50) % MCV (78-100) fL MCH (26-32) pg MCHC (32-36) g/dL RDW (11.5-14.0) % Plt Count (150-450) x10^3/uL MPV (7.5-11.0) fL Segmented Neutrophils (36.-66.) % Band Neutrophils (0.0-2.0) % Lymphocytes (Manual) (24-44) % Monocytes (Manual) (0.0-12.0) % Eosinophils (Manual) (0.00-3.0) % Toxic Granulation Platelet Estimate (NORMAL) RBC Morphology Anisocytosis Puncture Site pCO2 (35-45) mmHg pO2 (75-100) mmHg Base Excess (-2.0-2.0) O2 Saturation (94-100) g/dF ABG pH (7.35-7.45) ABG HCO3 (22-28) ABG O2 Sat (Measured) (95-100) % Phil Test A-a Gradient a/A Ratio Hemoglobin Carboxyhemoglobin (0.0-6.9) % THgb Methemoglobin (1.4-1.5) % Potassium 5.0 (3.5-5.1) Temperature C POC O2 Flow Rate % Sodium 133 L (135-145) mmol/L Chloride 100 (98-107) mmol/L Carbon Dioxide 22 (22-30) mmol/L Anion Gap 16.2 H (5-15) MEQ/L BUN 78 H (9-20) mg/dL Creatinine 3.39 H (0.66-1.25) mg/dL Estimated GFR 19.8 ML/MIN Glucose 266 H (74-106) mg/dL POC Glucometer 258 H (50 to 500) mg/dL Hemoglobin A1c (4.5-6.0) % Lactic Acid (0.4-2.0) Calcium 9.5 (8.4-10.2) mg/dL Total Bilirubin 1.10 (0.2-1.3) mg/dL AST 232 H (17-59) U/L ALT 114 H (0-50) U/L Alkaline Phosphatase 229 H (38-126) U/L Ammonia < 9 L (9-30) umol/L Troponin I (0.000-0.034) ng/mL Serum Total Protein 6.8 (6.3-8.2) g/dL Albumin 3.1 L (3.5-5.0) g/dL Prealbumin (17.6-36.0) mg/dL Urine Color (Yellow) Urine Appearance (Clear) Urine pH (4.6-8.0) Ur Specific Rosman (1.005-1.030) Urine Protein (Negative) Urine Glucose (UA) (Negative) mg/dL Urine Ketones (Negative) Urine Blood (Negative) Urine Nitrite (Negative) Urine Bilirubin (Negative) Urine Urobilinogen (0.2) mg/dL Ur Leukocyte Esterase (Negative) U Hyaline Cast (Auto) (0-2) /LPF Urine Microscopic RBC (0-5) /HPF Urine Microscopic WBC (0-5) /HPF Ur Epithelial Cells (None Seen) /HPF Urine Bacteria (None Seen) /HPF Urine Culture Reflexed (NO) Urine Opiates Level (NEGATIVE) Ur Methadone (NEGATIVE) Urine Barbiturates (NEGATIVE) Ur Phencyclidine (PCP) (NEGATIVE) Urine Amphetamine (NEGATIVE) U Benzodiazepine Level (NEGATIVE) Urine Cocaine (NEGATIVE) Urine Marijuana (THC) (NEGATIVE) 12/17/23 Range/Units Unknown WBC (4.0-10.5) x10^3/uL RBC (4.1-5.6) x10^6/uL Hgb (12.5-18.0) g/dL Hct (42-50) % MCV (78-100) fL MCH (26-32) pg MCHC (32-36) g/dL RDW (11.5-14.0) % Plt Count (150-450) x10^3/uL MPV (7.5-11.0) fL Segmented Neutrophils (36.-66.) % Band Neutrophils (0.0-2.0) % Lymphocytes (Manual) (24-44) % Monocytes (Manual) (0.0-12.0) % Eosinophils (Manual) (0.00-3.0) % Toxic Granulation Platelet Estimate (NORMAL) RBC Morphology Anisocytosis Puncture Site pCO2 (35-45) mmHg pO2 (75-100) mmHg Base Excess (-2.0-2.0) O2 Saturation (94-100) g/dF ABG pH (7.35-7.45) ABG HCO3 (22-28) ABG O2 Sat (Measured) (95-100) % Phil Test A-a Gradient a/A Ratio Hemoglobin Carboxyhemoglobin (0.0-6.9) % THgb Methemoglobin (1.4-1.5) % Potassium (3.5-5.1) Temperature C POC O2 Flow Rate % Sodium (135-145) mmol/L Chloride (98-107) mmol/L Carbon Dioxide (22-30) mmol/L Anion Gap (5-15) MEQ/L BUN (9-20) mg/dL Creatinine (0.66-1.25) mg/dL Estimated GFR ML/MIN Glucose (74-106) mg/dL POC Glucometer (50 to 500) mg/dL Hemoglobin A1c (4.5-6.0) % Lactic Acid (0.4-2.0) Calcium (8.4-10.2) mg/dL Total Bilirubin (0.2-1.3) mg/dL AST (17-59) U/L ALT (0-50) U/L Alkaline Phosphatase (38-126) U/L Ammonia (9-30) umol/L Troponin I (0.000-0.034) ng/mL Serum Total Protein (6.3-8.2) g/dL Albumin (3.5-5.0) g/dL Prealbumin (17.6-36.0) mg/dL Urine Color (Yellow) Urine Appearance (Clear) Urine pH (4.6-8.0) Ur Specific Rosman (1.005-1.030) Urine Protein (Negative) Urine Glucose (UA) (Negative) mg/dL Urine Ketones (Negative) Urine Blood (Negative) Urine Nitrite (Negative) Urine Bilirubin (Negative) Urine Urobilinogen (0.2) mg/dL Ur Leukocyte Esterase (Negative) U Hyaline Cast (Auto) (0-2) /LPF Urine Microscopic RBC (0-5) /HPF Urine Microscopic WBC (0-5) /HPF Ur Epithelial Cells (None Seen) /HPF Urine Bacteria (None Seen) /HPF Urine Culture Reflexed (NO) Urine Opiates Level NEGATIVE (NEGATIVE) Ur Methadone NEGATIVE (NEGATIVE) Urine Barbiturates NEGATIVE (NEGATIVE) Ur Phencyclidine (PCP) NEGATIVE (NEGATIVE) Urine Amphetamine POSITIVE A (NEGATIVE) U Benzodiazepine Level NEGATIVE (NEGATIVE) Urine Cocaine NEGATIVE (NEGATIVE) Urine Marijuana (THC) NEGATIVE (NEGATIVE) Micro Results-Entire Visit: Accuchecks Date 12/17/23 Date 12/16/23 Time 08:06 Time 23:58 - Radiology Exams Ordered Rad Exams-Entire Visit: Radiology Procedures Category Date Time Status ABDOMEN AND PELVIS W/0 CONTRAS [CT] Stat Exams 12/17/23 11:21 Ordered CHEST 1 VIEW (PORTABLE) Stat Exams 12/16/23 23:02 Completed CHEST 1 VIEW (PORTABLE) Stat Exams 12/17/23 04:25 Completed FOOT (MINIMUM 3 VIEWS) Stat Exams 12/17/23 11:21 Ordered FOOT (MINIMUM 3 VIEWS) Stat Exams 12/17/23 11:23 Ordered HEAD WITHOUT CONTRAST [CT] Stat Exams 12/16/23 23:14 Completed - Procedures and Test Procedures and Tests throughout Hospitalization: Therapy Orders & Screens 12/17/23 07:28 OT Screen per Nursing Assess ONCE Comment: Protocol Order Physician Instructions: Greater than 3 points order OT Admission Screening Reason For Exam: Triggered on Admission Diagnosis: Sepsis Open Wound/Cellutlitis/Pressure Ulcers: Yes Acute Fx/ORIF/Change in wt bearing status: No Severe MUSCULOSKELETAL pain: No ADL Dysfunction: No Acute CVA w/Hemiparesis/Hemiplegia: No Decreased Functional Mobility/Strength: No Sprain/Strain: No Acute Post-op Mobility Dysfunction: No Total Points: 5 PT Screen per Nursing Assess ONCE Comment: Protocol Order Physician Instructions: Greater than 3 points order PT Admission Screenin Reason For Exam: Triggered on Admission Diagnosis: Sepsis Open Wound/Cellutlitis/Pressure Ulcers: Yes Acute Fx/ORIF/Change in wt bearing status: No Severe MUSCULOSKELETAL pain: No ADL Dysfunction: No Acute CVA w/Hemiparesis/Hemiplegia: No Decreased Functional Mobility/Strength: No Sprain/Strain: No Acute Post-op Mobility Dysfunction: No Total Points: 5 12/17/23 07:59 Oxygen Oxymask LPM 10 lpm Comment: Diagnosis: Sepsis Discharge Exam General Appearance: mild distress Neurologic Exam: confusion Eye Exam: PERRL Ears, Nose, Throat Exam: normal ENT inspection Neck Exam: normal inspection Respiratory Exam: normal breath sounds, lungs clear Cardiovascular Exam: tachycardia Gastrointestinal/Abdomen Exam: soft, normal bowel sounds, other (hypoactive BS x 4 quads) Male Genitalia Exam: deferred Rectal Exam: deferred Back Exam: normal inspection Extremity Exam: other (BLE with ischemic toes, necrotic great toes/open areas in varius stages of healing) Skin Exam: decubitus - Discharge Disposition: Home, Self-Care Condition: Critical Prescriptions: New Norepinephrine Bitartrate/D5w [Norepinephrine 8 mg/250 ml-D5w] 8 mg IV .[id number] PRN PRN Reason: HYPOTENSION Piperacillin/Tazobactam 3.375G [Piperacillin/Tazobactam] 3.375 gm IV Q6HT Continue Atorvastatin Calcium [Lipitor 20MG Tablet] 20 mg PO HS Duloxetine HCl 30 mg [Cymbalta 30 MG Capsule] 60 mg PO DAILY Metformin HCl 1000 mg [Glucophage 1000 MG] 500 mg PO BID Tamsulosin HCl 0.4 mg [Flomax 0.4 MG] 0.4 mg PO HS Potassium Chloride Tab* [Klor Con] 20 meq PO DAILY Apixaban [Eliquis 2.5 mg Tablet] 5 mg PO BID Magnesium Oxide 400 mg [Mag-Ox 400] 400 mg PO DAILY Gabapentin 300 mg PO BID Sacubitril/Valsartan [Entresto 49 mg-51 mg Tablet] 1 tablet PO BID 30 Days #60 tablet Torsemide [Soaanz] 40 mg PO DAILY Ertugliflozin Pidolate [Steglatro] 15 mg PO DAILY Spironolactone 25 mg [Aldactone 25 MG] 25 mg PO DAILY Vit B12 1000mcg Lozenge 1,000 mcg PO DAILY Clopidogrel Bisulfate [Plavix] 75 mg PO DAILY Amiodarone HCl 200 mg PO DAILY Metoprolol Succinate 25 mg Xl* [Toprol-Xl 25MG Tablets] 2 tab PO DAILY Insulin Detemir [Levemir Flexpen] 100 unit SQ DAILY Follow up with: IRVING HENRY MD [Primary Care Provider] -
[2023-12-17] MEDS: PIPERACILLIN/TAZOBACTAM 3.375 GM in Sodium Chloride 100ML MINI-BAG PLUS 100 ML IV SCH (12:53)
--- NOTE | 2023-12-17 13:35 | XRAY ---
CLINICAL HISTORY: diabetic ulcer/necrosis TECHNIQUE: Xray left foot AP, oblique and lateral views COMPARISON: None. FINDINGS: Cortical erosion / irregularity seen at the tuft of the distal phalanx of the 1st and 2nd toe with mild soft tissue swelling. A bony spur seen at the base of the distal phalanx of big toe. Normal bone density is seen. No definite fracture line or subluxation is seen. IMPRESSION: 1. Cortical erosion/irregularity with sclerosis seen at the tuft of the distal phalanx of the 1st and 2nd toe with mild soft tissue swelling. 2. This likely signifies osteonecrosis, would recommend clinical correlation and an MRI of the foot with contrast to rule out a less likely possibility of osteomyelitis if clinically needed. 3. No definite fracture line or subluxation is seen. DISCLAIMER:A subtle bone abnormality or fracture may not be readily apparent on x-rays, thus clinical correlation and further imaging including follow-up CT, MRI, or follow-up x-rays are advised as needed Electronically Signed by: Coty Ennis MD. (12/17/2023 13:30:47 EST)
--- NOTE | 2023-12-17 13:44 | XRAY ---
CLINICAL HISTORY: necrosis diabetic ulcer TECHNIQUE: Xray right foot AP, oblique and lateral views COMPARISON: None. FINDINGS: Cortical irregularity/erosion seen at the tuft of distal phalanx of big toe and skin with mild soft tissue swelling. No fracture or dislocation seen. Tiny lucency seen in the head of proximal phalanx of big toe. Calcaneal spurs seen. Normal bone density. Mild osteoarthritis changes are seen at the first metatarsophalangeal joint and all distal interphalangeal joints as reduced joint spaces with sunchondral sclerosis. IMPRESSION: 1. Cortical irregularity/erosion seen at the tuft of the distal phalanx of big toe and skin with mild soft tissue swelling. 2. This likely signifies osteonecrosis, would recommend clinical correlation and an MRI of the foot with contrast if clinically needed. 3. Calcaneal spurs. 4. No fracture or dislocation was seen. DISCLAIMER:A subtle bone abnormality or fracture may not be readily apparent on x-rays, thus clinical correlation and further imaging including follow up CT, MRI, or follow up x-rays are advised as needed Electronically Signed by: Coty Ennis MD. (12/17/2023 13:40:17 EST)
[2023-12-17 13:46] LABS: ANION GAP 18.5 MEQ/L (5-15); Creatinine 1 3.21 mg/dL (0.66-1.25); EST GLOMERULAR FILTRATION RATE 21.1 ML/MIN
--- NOTE | 2023-12-17 14:48 | XRAY ---
CLINICAL HISTORY: sepsis elevated liver enzymes TECHNIQUE: A CT scan of the abdomen and pelvis was performed without IV or oral contrast. Coronal and sagittal reconstructive images were also obtained. COMPARISON: None FINDINGS: The area at the left groin, infra pubic muscles, obturator externus muscle, gluteus muscles, and upper thigh muscles, are edematous with possible large fluid collection/ inflammatory changes with linear streaks of calcification and septations. The urinary bladder is unremarkable. The rectum is unremarkable. Extensive colonic diverticular disease no evidence of diverticulitis. No evidence of pelvic lymphadenopathy. The liver is normal in size. No focal or diffuse parenchymal abnormality. The intrahepatic biliary radicals and the bile ducts are normal. The spleen, pancreas, and adrenal glands are unremarkable. The kidneys are showing bilateral perirenal fat stranding with some heterogenous hypodense area seen at the upper pole of the left kidney, requiring further post-contrast evaluation. The gallbladder is partially distended and shows dense bile with faint density stones. No pericholecystic collection. The heart appears enlarged with bilateral small pleural effusion and bilateral lower lung lobes and shows linear nodular opacities, likely signifying partial atelectasis and few air-space opacities, requiring clinical correlation. IMPRESSION: 1. Left upper thigh and groin fluid collection is mostly inflammatory however underlying masses can not be excluded, further assessment with soft tissue ultrasound is advised. 2. Suspicious of calcular cholecystitis. 3. Minimal perirenal fat stranding is seen as signifying perirenal edema with left upper pole questionable hypodense area, for further clinical correlation and post-contrast evaluation. 4. Colonic uncomplicated diverticular disease. 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 Biswas Electronically Signed by: Coty Ennis MD. (12/17/2023 14:45:26 EST)
[2023-12-17 16:02] LABS: Folate (Folic Acid) 9.93 ng/mL (2.76 - >20)
[2023-12-17 16:08] VITALS: BP 88/69; PULSE 108; RESP 28; TEMP 97.7; O2SAT 99
[2023-12-17] MEDS ORDERED: NON-FORMULARY ITEM (Atorvastatin Calcium 20 MG Tab) PO SCH (22:00)
[2023-12-17] MEDS ORDERED: VANCOCIN 500 MG VIAL*** 500 MG in Sodium Chloride 100ML MINI-BAG PLUS 100 ML IV SCH (22:00)
[2023-12-17] MEDS ORDERED: ZOCOR 20MG PO SCH (22:00)
[2023-12-17] MEDS ORDERED: Flomax 0.4 MG PO SCH (22:00)
[2023-12-18 11:07] LABS: HBsAg Screen Negative (Negative); HCV Ab Non Reactive (Non Reactive); Hep B Core Ab, IgM Negative (Negative)
[2023-12-18 13:35] LABS: Hep A Ab, IgM Indeterminate (Negative)
== END 2023-12-17 15:18 ==
LOC: ED 22:42 → ICU 12-17 05:42 → INTOOBSV 12-17 05:42
PROVIDERS: ADMIT Internal Medicine; ATTEND Internal Medicine
DX: A41.9 Sepsis, unspecified organism (principal); R65.21 Severe sepsis with septic shock; L89.159 Pressure ulcer of sacral region, unspecified stage; R41.82 Altered mental status, unspecified; E87.20 Acidosis, unspecified; N17.9 Acute kidney failure, unspecified; I11.0 Hypertensive heart disease with heart failure; I50.9 Heart failure, unspecified; E87.1 Hypo-osmolality and hyponatremia; E87.5 Hyperkalemia; I48.91 Unspecified atrial fibrillation; E11.65 Type 2 diabetes mellitus with hyperglycemia; N40.0 Benign prostatic hyperplasia without lower urinary tract symptoms; F17.200 Nicotine dependence, unspecified, uncomplicated; Z79.01 Long term (current) use of anticoagulants; Z79.899 Other long term (current) drug therapy; Z20.828 Contact with and (suspected) exposure to other viral communicable diseases
CPT/HCPCS: 36000; 36415; 36600; 51702; 70450; 71045; 73630; 74176; 80048; 80053; 80074; 80307; 81001; 82140; 82375; 82607; 82746; 82803; 82947; 83036; 83605; 84134; 84443; 84484; 85025; 85027; 87040; 87070; 87077; 87086; 87186; 93268; 96360; 96372; 99285; 99291; 99292; G0378; Q3014; J1817; A9270-GY; J3370

== ENCOUNTER 2024-03-08 09:27 | Inpatient (IN) | payer MEDICAID ==
[2024-03-08] MEDS ORDERED: Zofran 4 MG/2 ML VIAL ONE (10:21)
[2024-03-08] MEDS ORDERED: MORPHINE SULFATE 4 MG INJ ONE (10:21)
[2024-03-08] MEDS ORDERED: Sodium Chloride 0.9% 1000 ML 1,000 ML ONE ×2 (10:22→12:02)
[2024-03-08] MEDS: Sodium Chloride 0.9% 1000 ML 1,000 ML IV STA (10:29)
[2024-03-08] MEDS: Zofran 4 MG/2 ML VIAL IV ONE (10:29)
[2024-03-08] MEDS: MORPHINE SULFATE 4 MG INJ IV ONE (10:29)
[2024-03-08 10:33] LABS: Absolute Neutrophil Ct (ANC) 4.35 x10^3/uL (1.4-6.9); BASOPHIL % 1.7 % (0.0-0.4); Basophil (Absolute #) 0.14 x10^3/uL (0-0.4); Eosinophil % 4.7 % (0.00-5.0); Eosinophil (Absolute #) 0.38 x10^3/uL (0-0.5); Hematocrit 37.1 % (42-50); Hemoglobin 11.9 g/dL (12.5-18.0); IMMATURE GRAN # 0.04 x10^3u/L (0.00-0.03); IMMATURE GRAN % 0.5 % (0.00-0.4); Lymphocyte (Absolute #) 2.58 x10^3/uL (1.0-4.6); Lymphocytes % 31.7 % (24.0-44.0); Mean Cell Volume 82.3 fL (78-100); Mean Corpuscular Hemoglobin 26.4 pg (26-32); Mean Corpuscular Hgb Concent. 32.1 g/dL (32-36); Mean Platelet Volume 9.8 fL (7.5-11.0); Monocyte (Absolute #) 0.66 x10^3/uL (0.0-1.3); Monocytes % 8.1 % (0.0-12.0); Neutrophil % 53.3 % (36.0-66.0); Platelet Count 550 x10^3/uL (150-450); Red Blood Count 4.51 x10^6/uL (4.1-5.6); Red Cell Distribution Width 14.1 % (11.5-14.0); White Blood Count 8.2 x10^3/uL (4.0-10.5)
--- NOTE | 2024-03-08 10:38 | XRAY ---
Indication: Swelling. No known injury. Comparison: None 3 portable views right shoulder demonstrates new anterior inferior humeral head dislocation with diffuse soft tissue swelling. Again incidental osteopenia and mild AC degenerative arthropathy. No other bony, articular, or soft tissue abnormalities.
[2024-03-08 11:06] LABS: ALBUMIN 3.2 g/dL (3.5-5.0); ANION GAP 11.2 MEQ/L (5-15); BILIRUBIN,TOTAL 0.4 mg/dL (0.2-1.3); Calcium 9.4 mg/dL (8.4-10.2); Creatinine 1 0.77 mg/dL (0.66-1.25); EST GLOMERULAR FILTRATION RATE 101.2 ML/MIN; PROCALCITONIN 0.189 ng/mL (0.030-0.080); Potassium 3.9 mmol/L (3.5-5.1); Total Protein 7.2 g/dL (6.3-8.2); Uric Acid 4.1 mg/dL (3.5-7.2)
[2024-03-08] MEDS ORDERED: XYLOCAINE 1% HCL 20 ML MDV ONE (11:53)
[2024-03-08] MEDS: Sodium Chloride 0.9% 1000 ML 1,000 ML IV SCH (12:05)
[2024-03-08] MEDS ORDERED: PIPERACILLIN/TAZOBACTAM IV ONE (12:44)
--- NOTE | 2024-03-08 12:44 | ERPHSYRPT ---
- History of Present Illness Time Seen by Provider: 03/08/24 09:40 Source: patient, EMS, [facility] records Exam Limitations: other (Dementia) Patient Subjective Stated Complaint: nurse at [facility] states that pt has had swelling to rt shoulder since tuesday Triage Nursing Assessment: pt came into the er via ambulance; pt is axo x3; c/o swelling to rt shoulder; pt states 8/10 pain to rt shoulder; swelling present to rt shoulder; limited ROM to rt shoulder; strong rt radial pulse; good cap refill to RUE; sanchez cath in place at time of arrival; necrotic toes present to rt foot, great toe, 3rd digit; left mid digit; left foot 2nd digit necrotic; skin PDW; no respiratory distress present; tachycardic Physician History: 64 years old male with multiple medical problems including hypertension, hyperlipidemia, COPD, atrial fibrillation on Eliquis, congestive heart failure, dementia chronic indwelling catheter, GERD resident of [facility] is brought in the ER with 5 days history of gradually increasing swelling right shoulder with pain without any known fall or trauma. Patient has severe limitation range of motion right upper extremity and favoring. Patient has no numbness or tingling in the hand. No fever or chills reported. X-rays done at [facility] are negative for fracture dislocation. Not a good historian and history is limited. Allergies/Adverse Reactions: No Known Drug Allergies Allergy (Verified 12/17/23 06:22) Home Medications: Atorvastatin Calcium [Lipitor 20MG Tablet] 20 mg PO HS 08/12/16 [History] Duloxetine HCl 30 mg [Cymbalta 30 MG Capsule] 30 mg PO DAILY 08/12/16 [History] Apixaban [Eliquis 2.5 mg Tablet] 5 mg PO BID 08/31/22 [History] Potassium Chloride Tab* [Klor Con] 20 meq PO DAILY 08/31/22 [History] Clopidogrel Bisulfate [Plavix] 75 mg PO DAILY 12/17/23 [History] Metoprolol Succinate 25 mg Xl* [Toprol-Xl 25MG Tablets] 1 tab PO DAILY 12/17/23 [History] Torsemide [Soaanz] 40 mg PO DAILY 12/17/23 [History] Acetaminophen 325 mg [Tylenol 325 mg] 650 mg PO Q4HPRN PRN 03/08/24 [History] Albuterol 2.5 mg/3 ml Neb [Proventil 2.5 mg/3 ml Neb] 3 ml IH Q6HPRN PRN 03/08/24 [History] Amlodipine Besylate 10 mg PO DAILY 03/08/24 [History] Ferrous Sulfate [Ferosul] 325 mg PO DAILY 03/08/24 [History] Honey [Medihoney] 1 applic TP DAILY 03/08/24 [History] Hydrocodone/Acetaminophen [Hydrocodone-Acetamin 5-325 mg] 1 tab PO Q6HPRN PRN MDD 4 03/08/24 [History] Insulin Glargine [Lantus Insulin] 6 unit SQ HS 03/08/24 [History] Insulin Lispro 100 unit SQ QID 03/08/24 [History] Melatonin 5 mg PO HS 03/08/24 [History] Miconazole Nitrate 1 applic TOP DAILY PRN 03/08/24 [History] Povidone-Iodine [Povidone Iodine] 1 ml TOP DAILY 03/08/24 [History] Sodium Phosphate,Louisa-Dibasic [Fleet Enema] 133 ml RC DAILY PRN 03/08/24 [History] Thiamine HCl 100 mg PO DAILY 03/08/24 [History] glucagon HCL [Glucagon Emergency Kit] 1 mg IJ UD PRN 03/08/24 [History] Hx Tetanus, Diphtheria Vaccination/Date Given: No Hx Influenza Vaccination/Date Given: No Hx Pneumococcal Vaccination/Date Given: No Travel Risk - International Travel Have you traveled outside of the country in past 3 weeks: No - Emerging Infectious Disease Are you exhibiting symptoms associated with any current EIDs: No - Review of Systems All Other Systems: Unable due to dementia - Past Medical History Pertinent Past Medical History: Yes Neurological History: Dementia, TIA ENT History: Other Cardiac History: Arrhythmia, Congestive Heart Failure, High Cholesterol, Peripheral Vascular Disease, Other Respiratory History: No Pertinent History Endocrine Medical History: Diabetes Type II Musculoskeletal History: No Pertinent History GI Medical History: Cirrhosis History: No Pertinent History Psycho-Social History: Anxiety, Depression Male Reproductive Disorders: Prostate Problems Other Medical History: R SHOULDER INSTABILITY, A FIB. Pt unable to give history - recalled from previous visit - Past Surgical History Past Surgical History: Yes Neuro Surgical History: No Pertinent History Cardiac: No Pertinent History Respiratory: No Pertinent History Gastrointestinal: No Pertinent History Genitourinary: No Pertinent History Musculoskeletal: Orthopedic Surgery Male Surgical History: No Pertinent History Other Surgical History: RIGHT shoulder. Pt unable to give history - recalled from previous visit Significant Family History: no pertinent family hx - Social History Smoking Status: Unknown if ever smoked How long have you smoked: 40 Exposure to second hand smoke: Yes Drug Use: none Patient Lives Alone: Yes - Nursing Vital Signs Nursing Vital Signs: Initial Vital Signs Temperature 97.9 F 03/08/24 09:29 Pulse Rate 111 H 03/08/24 09:29 Respiratory Rate 18 03/08/24 09:29 Blood Pressure 125/99 03/08/24 09:29 O2 Sat by Pulse Oximetry 98 03/08/24 09:29 Pain Scale Pain Intensity 3 - Physical Exam General Appearance: no apparent distress, alert Eye Exam: PERRL/EOMI Ears, Nose, Throat Exam: normal ENT inspection, pharynx normal Neck Exam: normal inspection, non-tender, supple, full range of motion Respiratory Exam: normal breath sounds, lungs clear Cardiovascular Exam: normal heart sounds, tachycardia Gastrointestinal/Abdomen Exam: soft, normal bowel sounds, No tenderness Back Exam: normal inspection Extremity Exam: joint swelling, limited range of motion, swelling (Right shoulder warm, soft to firm consistency, markedly swollen to mid deltoid with severe limitation range of motion. Distal neurovascular intact.), tenderness Neurologic Exam: alert, cooperative, vp informatics II-XII nml as tested Skin Exam: normal color SpO2 Interpretation: normal SpO2: 96 O2 Delivery: Room Air Procedures - Additional Procedures Progress: Right shoulder joint effusion aspiration. Time 1225. Under aseptic major lidocaine without epi is given 5 cc and almost 15 cc pus looking effusion drained. Ordered Tests: Active Orders 24 hr Category Date Time Status Sanchez [Catheter-[place] Sanchez] STAT Care 03/08/24 13:04 Completed IV Insertion STAT Care 03/08/24 10:00 Completed NPO (ED) STAT Care 03/08/24 10:00 Completed Consistent Carbohydrate Diet 1800 Calorie Diet 03/08/24 Dinner Active SHOULDER Stat Exams 03/08/24 09:59 Completed BLOOD CULTURE Stat Lab 03/08/24 10:54 Received BODY FLUID CELL COUNT Routine Lab 03/08/24 12:36 Completed CBC W DIFF Stat Lab 03/08/24 10:15 Completed CMP Stat Lab 03/08/24 10:15 Completed CULTURE,URINE Stat Lab 03/08/24 13:09 Received Erythrocyte Sedimentation Rate Stat Lab 03/08/24 10:15 Completed Lactic Acid Stat Lab 03/08/24 10:50 Completed PROCALCITONIN Stat Lab 03/08/24 10:15 Completed UA W/RFX UR CULTURE Stat Lab 03/08/24 13:09 Completed Uric Acid Stat Lab 03/08/24 10:15 Completed Transfer Order Routine Transfer 03/08/24 Completed Medication Summary Generic Name Dose Route Start Last Admin Trade Name Freq PRN Reason Stop Dose Admin Acetaminophen 650 mg 03/08/24 14:16 Acetaminophen 325 Mg Tablet PO 04/07/24 14:15 Q4H PRN PRN PAIN, FEVER, HEADACHE Hydrocodone Bitart/Acetaminophen 1 tab 03/08/24 14:22 Hydrocodone/Apap 5/325 1 Tab Tablet PO 03/13/24 14:21 Q4H PRN PRN PAIN Albuterol Sulfate 2.5 mg 03/08/24 15:36 Albuterol Sulfate 2.5 Mg/3 Ml Neb IH 04/07/24 15:35 Q6HPRN PRN SHORTNESS OF BREATH/WHEEZING Amlodipine Besylate 10 mg 03/09/24 10:00 Amlodipine Besylate 5 Mg Tablet PO 04/08/24 09:59 DAILY KALLIE Device 1 03/09/24 13:30 Therapuetic Drug Level Monitor Each IJ 03/09/24 13:31 1XONLY ONE Duloxetine HCl 30 mg 03/09/24 10:00 Duloxetine Hcl 30 Mg Cap PO 04/08/24 09:59 DAILY [facility] Ferrous Sulfate 325 mg 03/09/24 10:00 Ferrous Sulfate 325 Mg Tablet PO 04/08/24 09:59 DAILY [facility] Piperacillin Sod/Tazobactam 100 mls @ 200 mls/hr 03/08/24 18:00 Sod 3.375 gm/ Sodium Chloride IV 03/11/24 17:59 Q6HT KALLIE Vancomycin HCl 1 gm in 200 mls @ 133.333 mls/hr 03/08/24 22:00 Vancomycin 1 Gram/200 Ml Bag IV 04/07/24 21:59 Q8HT [facility] Insulin Glargine 6 unit 03/08/24 22:00 Insulin Glargine 1 Unit SQ 06/29/24 21:59 HS [facility] Insulin Human Lispro 0 unit 03/08/24 14:16 Insulin Lispro 1 Unit SQ 04/07/24 14:15 UD PRN HYPERGLYCEMIA Melatonin 3 mg 03/08/24 22:00 Melatonin 3 Mg Tablet PO 04/07/24 21:59 HS [facility] Metoprolol Succinate 25 mg 03/09/24 10:00 Metoprolol Succinate 25 Mg Xl Tab PO 04/08/24 09:59 DAILY [facility] Miscellaneous Information 1 each 03/08/24 16:00 Medication Intervention 1 Each Each 04/07/24 15:59 .RN TO CHECK KALLIE Morphine Sulfate 1 mg 03/08/24 14:22 Morphine Sulfate 2 Mg/Ml Inj IV 03/13/24 14:21 Q4H PRN PRN PAIN Nystatin 1 gm 03/08/24 15:49 Nystatin 15 Gm Powder TOP 04/07/24 15:48 DAILY PRN PRN ITCHING Ondansetron HCl 4 mg 03/08/24 14:16 Ondansetron Hcl 4 Mg/2 Ml Vial IV 04/07/24 14:15 Q6H PRN PRN NAUSEA/VOMITING Pantoprazole Sodium 40 mg 03/08/24 14:30 Pantoprazole 40 Mg Vial IV 04/07/24 14:29 Q24H10 [facility] Potassium Chloride 20 meq 03/09/24 10:00 Potassium Chloride Tab 10 Meq Tab PO 04/08/24 09:59 DAILY KALLIE Simvastatin 20 mg 03/08/24 22:00 Simvastatin 20 Mg Tablet PO 04/07/24 21:59 HS [facility] Thiamine HCl 100 mg 03/09/24 10:00 Thiamine Hcl 100 Mg Tablet PO 04/08/24 09:59 DAILY KALLIE Torsemide 40 mg 03/09/24 10:00 Torsemide 20 Mg Tablet PO 04/08/24 09:59 DAILY KALLIE Discontinued Medications Generic Name Dose Route Start Last Admin Trade Name Freq PRN Reason Stop Dose Admin Sodium Chloride 1,000 mls @ 999 mls/hr 03/08/24 10:00 03/08/24 11:37 Sodium Chloride 0.9% 1000 Ml IV 03/08/24 11:00 Infused .Q1H1M STA Infusion Sodium Chloride Confirm 03/08/24 10:22 Sodium Chloride 0.9% 1000 Ml Administered 03/08/24 10:23 Dose 1,000 mls @ ud .ROUTE .STK-MED ONE Sodium Chloride Confirm 03/08/24 12:02 Sodium Chloride 0.9% 1000 Ml Administered 03/08/24 12:03 Dose 1,000 mls @ ud .ROUTE .STK-MED ONE Sodium Chloride 1,000 mls @ 100 mls/hr 03/08/24 12:15 03/08/24 12:05 Sodium Chloride 0.9% 1000 Ml IV 04/07/24 12:14 100 mls/hr .Q10H KALLIE Administration Piperacillin Sod/Tazobactam 100 mls @ 200 mls/hr 03/08/24 12:32 03/08/24 12:46 Sod 3.375 gm/ Sodium Chloride IV 03/08/24 13:01 200 mls/hr STAT ONE Administration Vancomycin HCl 2 gm in 400 mls @ 133.333 mls/hr 03/08/24 12:32 03/08/24 12:58 Vancomycin 2 Gram/400 Ml Bag IV 03/08/24 15:31 133.333 ml/hr STAT ONE 133.33 mls/hr Administration Sodium Chloride Confirm 03/08/24 12:45 Sodium Chloride 100ml Mini-Bag Plus Administered 03/08/24 12:46 Dose 100 mls @ ud IV .STK-MED ONE Vancomycin HCl Confirm 03/08/24 12:57 Vancomycin 2 Gram/400 Ml Bag Administered 03/08/24 12:58 Dose 2 gm in 400 mls @ ud IV .STK-MED ONE Lidocaine HCl Confirm 03/08/24 11:53 Lidocaine Hcl 1% 20 Ml Mdv 20 Ml Ml Administered 03/08/24 11:54 Dose 5 ml .ROUTE .STK-MED ONE Morphine Sulfate 4 mg 03/08/24 10:00 03/08/24 10:29 Morphine Sulfate 4 Mg/Ml Injection IV 03/08/24 10:01 4 mg STAT ONE Administration Morphine Sulfate Confirm 03/08/24 10:21 Morphine Sulfate 4 Mg/Ml Injection Administered 03/08/24 10:22 Dose 4 mg .ROUTE .STK-MED ONE Non-Formulary Medication 1 each 03/08/24 14:21 Pharmacy Dosing Request [facility] 03/08/24 14:22 STAT ONE Non-Formulary Medication 133 ml 03/08/24 15:36 Sodium Phosphate,Louisa-Dibasic [Fleet Enema] RC DAILY PRN CONSTIPATION Ondansetron HCl 4 mg 03/08/24 10:00 03/08/24 10:29 Ondansetron Hcl 4 Mg/2 Ml Vial IV 03/08/24 10:01 4 mg STAT ONE Administration Ondansetron HCl Confirm 03/08/24 10:21 Ondansetron Hcl 4 Mg/2 Ml Vial Administered 03/08/24 10:22 Dose 4 mg .ROUTE .STK-MED ONE Piperacillin Sod/Tazobactam Sod Confirm 03/08/24 12:44 Piperacillin/Tazobactam Sodium 3.375 Gm Vial Administered 03/08/24 12:45 Dose 3.375 gm IV .STK-MED ONE Lab/Rad Data: Laboratory Result Diagrams 03/08/24 10:15 03/08/24 10:15 Laboratory Results 03/08/24 03/08/24 03/08/24 Range/Units 13:09 12:36 10:50 Specimen Type SYNOVIAL WBC (4.0-10.5) x10^3/uL RBC (4.1-5.6) x10^6/uL Hgb (12.5-18.0) g/dL Hct (42-50) % MCV (78-100) fL MCH (26-32) pg MCHC (32-36) g/dL RDW (11.5-14.0) % Plt Count (150-450) x10^3/uL MPV (7.5-11.0) fL Gran % (36.0-66.0) % Immature Gran % (Auto) (0.00-0.4) % Nucleat RBC Rel Count (0.00-0.1) % Eos # (Auto) (0-0.5) x10^3/uL Immature Gran # (Auto) (0.00-0.03) x10^3u/L Absolute Lymphs (auto) (1.0-4.6) x10^3/uL Absolute Monos (auto) (0.0-1.3) x10^3/uL Absolute Nucleated RBC (0.00-0.01) x10^3u/L Lymphocytes % (24.0-44.0) % Monocytes % (0.0-12.0) % Eosinophils % (0.00-5.0) % Basophils % (0.0-0.4) % Absolute Granulocytes (1.4-6.9) x10^3/uL Basophils # (0-0.4) x10^3/uL ESR Sodium (135-145) mmol/L Potassium (3.5-5.1) mmol/L Chloride (98-107) mmol/L Carbon Dioxide (22-30) mmol/L Anion Gap (5-15) MEQ/L BUN (9-20) mg/dL Creatinine (0.66-1.25) mg/dL Estimated GFR ML/MIN Glucose (74-106) mg/dL Lactic Acid 1.7 (0.4-2.0) Uric Acid (3.5-7.2) mg/dL Calcium (8.4-10.2) mg/dL Total Bilirubin (0.2-1.3) mg/dL AST (17-59) U/L ALT (0-50) U/L Alkaline Phosphatase (38-126) U/L Serum Total Protein (6.3-8.2) g/dL Albumin (3.5-5.0) g/dL Procalcitonin (0.030-0.080) ng/mL Urine Color Yellow (Yellow) Urine Appearance Cloudy A (Clear) Urine pH 5.5 (4.6-8.0) Ur Specific Bland 1.020 (1.005-1.030) Urine Protein 100 A (Negative) Urine Glucose (UA) Negative (Negative) mg/dL Urine Ketones Negative (Negative) Urine Blood Trace (Negative) Urine Nitrite Positive A (Negative) Urine Bilirubin Negative (Negative) Urine Urobilinogen 1.0 A (0.2) mg/dL Ur Leukocyte Esterase Large A (Negative) U Hyaline Cast (Auto) None Seen (0-2) /LPF Urine Microscopic RBC 0-2 (0-5) /HPF Urine Microscopic WBC 51-100 A (0-5) /HPF Ur Epithelial Cells Rare (None Seen) /HPF Urine Bacteria Few A (None Seen) /HPF Urine Culture Reflexed ORDERED SEPARATELY (NO) Fluid Color XANTHROCHORMIC A (COLORLESS) Fluid Clarity CLOUDY A (CLEAR) Fluid WBC (Auto) 107.638 x10^3u/L Fluid RBC (Auto) 0.056 x10^6u/L Fld Polynuclear WBCs % 94.900 % Fl Mononuclear % Auto 5.100 % 05/30/24 05/30/24 05/30/24 Range/Units 10:15 10:15 10:15 Specimen Type WBC 8.2 (4.0-10.5) x10^3/uL RBC 4.51 (4.1-5.6) x10^6/uL Hgb 11.9 L (12.5-18.0) g/dL Hct 37.1 L (42-50) % MCV 82.3 (78-100) fL MCH 26.4 (26-32) pg MCHC 32.1 (32-36) g/dL RDW 14.1 H (11.5-14.0) % Plt Count 550 H (150-450) x10^3/uL MPV 9.8 (7.5-11.0) fL Gran % 53.3 (36.0-66.0) % Immature Gran % (Auto) 0.5 H (0.00-0.4) % Nucleat RBC Rel Count 0.0 (0.00-0.1) % Eos # (Auto) 0.38 (0-0.5) x10^3/uL Immature Gran # (Auto) 0.04 H (0.00-0.03) x10^3u/L Absolute Lymphs (auto) 2.58 (1.0-4.6) x10^3/uL Absolute Monos (auto) 0.66 (0.0-1.3) x10^3/uL Absolute Nucleated RBC 0.00 (0.00-0.01) x10^3u/L Lymphocytes % 31.7 (24.0-44.0) % Monocytes % 8.1 (0.0-12.0) % Eosinophils % 4.7 (0.00-5.0) % Basophils % 1.7 (0.0-0.4) % Absolute Granulocytes 4.35 (1.4-6.9) x10^3/uL Basophils # 0.14 (0-0.4) x10^3/uL ESR SPEECH LANGUAGE PATHOLOGIST ASSISTANT Sodium 136 (135-145) mmol/L Potassium 3.9 (3.5-5.1) mmol/L Chloride 99 (98-107) mmol/L Carbon Dioxide 30 (22-30) mmol/L Anion Gap 11.2 (5-15) MEQ/L BUN 21 H (9-20) mg/dL Creatinine 0.77 (0.66-1.25) mg/dL Estimated GFR 101.2 ML/MIN Glucose 200 H (74-106) mg/dL Lactic Acid (0.4-2.0) Uric Acid 4.1 (3.5-7.2) mg/dL Calcium 9.4 (8.4-10.2) mg/dL Total Bilirubin 0.40 (0.2-1.3) mg/dL AST 53 (17-59) U/L ALT 47 (0-50) U/L Alkaline Phosphatase 270 H (38-126) U/L Serum Total Protein 7.2 (6.3-8.2) g/dL Albumin 3.2 L (3.5-5.0) g/dL Procalcitonin 0.189 H (0.030-0.080) ng/mL Urine Color (Yellow) Urine Appearance (Clear) Urine pH (4.6-8.0) Ur Specific Bland (1.005-1.030) Urine Protein (Negative) Urine Glucose (UA) (Negative) mg/dL Urine Ketones (Negative) Urine Blood (Negative) Urine Nitrite (Negative) Urine Bilirubin (Negative) Urine Urobilinogen (0.2) mg/dL Ur Leukocyte Esterase (Negative) U Hyaline Cast (Auto) (0-2) /LPF Urine Microscopic RBC (0-5) /HPF Urine Microscopic WBC (0-5) /HPF Ur Epithelial Cells (None Seen) /HPF Urine Bacteria (None Seen) /HPF Urine Culture Reflexed (NO) Fluid Color (COLORLESS) Fluid Clarity (CLEAR) Fluid WBC (Auto) x10^3u/L Fluid RBC (Auto) x10^6u/L Fld Polynuclear WBCs % % Fl Mononuclear % Auto % - Progress Progress: improved, pain not gone completely, re-examined Progress Note: 03/08/24 12:53 64 years old with history of dementia and multiple other medical problems is evaluated for right shoulder swelling and pain. Patient has severe limitation range of motion. Distal neurovascular intact. X-ray showed soft tissue swelling and anteroinferior dislocation. Other workup showed normal white count, lactate 1.7 and procalcitonin 1.18. I have consulted orthopedic surgery Dr. Avendano who has seen patient and recommended drainage of effusion before reduction. After informed consent I have drained almost 15 cc pus looking eff usion which is sent for culture and cell count/crystal count. Patient is started on Zosyn and vancomycin. Placed in a sling. Since patient is on Eliquis, cannot be taken to the OR for joint wash immediately. I have discussed with Dr. Ochoa, reviewed history, workup, orthopedics recommendation to hold off on Eliquis from now onward until procedure is done and patient is excepted for admission. Discussed the results of workup and plan with patient who kind of seems understanding, we have tried to call daughter who is the POA multiple times but could not get hold of her yet. Discussed with Dr.: Other Will see patient in: hospital (full admit) Counseled pt/family regarding: lab results, diagnosis, rad results Medical Desision Making - Independent Historian Additional History obtained from: Longterm nurse - External Record(s) Reviewed Records reviewed as a part of evaluation & management: [facility] - Discussion of managment Care discussed with:: specialist ( orthopedics, Dr. Carbajal primary care, Dr. Ochoa hospitalist) Reviewed:: Test results, Need for additional workup Agreed on:: Treatment plan Will see patient: in hospital - Diagnostic Testing Diagnostic test were ordered, analyzed, and reviewed by me: Yes Radiological Interpretation: Interpreted by me, Reviewed by me - Risk of complications The pt has a mod risk of morbidity or mortality based on: Need for prescription drug management The pt has a high risk of morbidity or mortality based on: Need for major surgery in patient with known risk factors, Decision regarding hospitilization or escalation of hosp level of care - Departure Departure Disposition: In-patient Admission Clinical Impression: Septic joint of right shoulder region, Gangrene of toe of both feet Condition: Stable Critical Care Time: No
[2024-03-08] MEDS ORDERED: Sodium Chloride 100ML MINI-BAG PLUS 100 ML IV ONE (12:45)
[2024-03-08] MEDS: PIPERACILLIN/TAZOBACTAM 3.375 GM in Sodium Chloride 100ML MINI-BAG PLUS 100 ML IV ONE (12:46)
[2024-03-08] MEDS ORDERED: VANCOMYCIN 2 GRAM/400 ML BAG 2 GM/400 ML PIGGYBACK IV ONE (12:57)
[2024-03-08] MEDS: VANCOMYCIN 2 GRAM/400 ML BAG 2 GM/400 ML PIGGYBACK IV ONE (12:58)
[2024-03-08 13:44] LABS: BODY FLUID CELL COUNT RBC 0.056 x10^6u/L
[2024-03-08 13:46] LABS: BODY FLUID CELL COUNT WBC 107.638 x10^3u/L
[2024-03-08 14:00] LABS: BF-COLOR XANTHROCHORMIC (COLORLESS)
[2024-03-08 14:01] LABS: BF CLARITY CLOUDY (CLEAR); BF SPECIMEN TYPE SYNOVIAL
--- NOTE | 2024-03-08 14:10 | PCM.HP ---
History of Present Illness - Chief Complaint Chief Complaint: right septic shoulder Date: 03/08/24 History of Present Illness: Mr. Hermosillo is a 64 year old male with a pmhx of dementia, TIA, CHF, AFIB (on Eliquis), HLD, PVD, DMII, anxiety, GERD, chronic indwelling catheter, and depression (poor historian) who presented to ED from nursing facility with a five day history of progressive swelling to the right shoulder and pain. Patient describes the pain as non-radiating, dull and aching, and "tight." Pain is aggravated with movement. Relieved with pain medications. He is rating pain 4/10 on numerical pain scale during this interview. No trauma reported. In ED patient was reported to have severe LROM to RUE. Right shoulder xray showing new anterior inferior humeral head dislocation with diffuse soft tissue swelling. Surgery was consulted (Dr. Avendano) with recommendations for drainage of effusion and reduction. Drainage performed in ED and sent for cultures. Lab findings with normocytic anemia, elevated alk phos and procal. Urine and blood cultures pending. Lactic acid noted as WNL. Plan for IV abx with Vancomycin and Zosyn as well as washout scheduled for tomorrow. In the meantime, patient is placed in sling. Of note, upon exam of BLE Right great toe and third toe with necrosis - left second toe with necrosis, left great toe with ulceration (healing), and left fifth toe with ulcer. Podiatry consulted. - Review of Systems Constitutional: Weakness Eyes: No Symptoms Ears, Nose, & Throat: No Symptoms Respiratory: No Symptoms Cardiac: No Symptoms Abdominal/Gastrointestinal: No Symptoms Genitourinary Symptoms: No Symptoms Musculoskeletal: Joint Pain (right shoulder) Skin: Other (multiple areas of necrosis to bilateral feet see HPI) Neurological: Parasthesia (BLE ) Psychological: No Symptoms Endocrine: No Symptoms Hematologic/Lymphatic: No Symptoms Immunological/Allergic: No Symptoms Medications & Allergies Home Medications: Home Medication List Atorvastatin Calcium [Lipitor 20MG Tablet] 20 mg PO HS 08/12/16 [History Confirmed 03/08/24] Duloxetine HCl 30 mg [Cymbalta 30 MG Capsule] 30 mg PO DAILY 08/12/16 [History Confirmed 03/08/24] Apixaban [Eliquis 2.5 mg Tablet] 5 mg PO BID 08/31/22 [History Confirmed 03/08/24] Potassium Chloride Tab* [Klor Con] 20 meq PO DAILY 08/31/22 [History Confirmed 03/08/24] Clopidogrel Bisulfate [Plavix] 75 mg PO DAILY 12/17/23 [History Confirmed 03/08/24] Metoprolol Succinate 25 mg Xl* [Toprol-Xl 25MG Tablets] 1 tab PO DAILY 12/17/23 [History Confirmed 03/08/24] Torsemide [Soaanz] 40 mg PO DAILY 12/17/23 [History Confirmed 03/08/24] Acetaminophen 325 mg [Tylenol 325 mg] 650 mg PO Q4HPRN PRN 03/08/24 [History Confirmed 03/08/24] Albuterol 2.5 mg/3 ml Neb [Proventil 2.5 mg/3 ml Neb] 3 ml IH Q6HPRN PRN 03/08/24 [History Confirmed 03/08/24] Amlodipine Besylate 10 mg PO DAILY 03/08/24 [History Confirmed 03/08/24] Ferrous Sulfate [Ferosul] 325 mg PO DAILY 03/08/24 [History Confirmed 03/08/24] Honey [Medihoney] 1 applic TP DAILY 03/08/24 [History Confirmed 03/08/24] Hydrocodone/Acetaminophen [Hydrocodone-Acetamin 5-325 mg] 1 tab PO Q6HPRN PRN MDD 4 03/08/24 [History Confirmed 03/08/24] Insulin Glargine [Lantus Insulin] 6 unit SQ HS 03/08/24 [History Confirmed 03/08/24] Insulin Lispro 100 unit SQ QID 03/08/24 [History Confirmed 03/08/24] Melatonin 5 mg PO HS 03/08/24 [History Confirmed 03/08/24] Miconazole Nitrate 1 applic TOP DAILY PRN 03/08/24 [History Confirmed 03/08/24] Povidone-Iodine [Povidone Iodine] 1 ml TOP DAILY 03/08/24 [History Confirmed 03/08/24] Sodium Phosphate,Meigs-Dibasic [Fleet Enema] 133 ml RC DAILY PRN 03/08/24 [History Confirmed 03/08/24] Thiamine HCl 100 mg PO DAILY 03/08/24 [History Confirmed 03/08/24] glucagon HCL [Glucagon Emergency Kit] 1 mg IJ UD PRN 03/08/24 [History Confirmed 03/08/24] Allergies/Adverse Reactions: Allergies Allergy/AdvReac Type Severity Reaction Status Date / Time No Known Drug Allergies Allergy Verified 12/17/23 06:22 - Past Medical History Past Medical History: Yes Neurological History: Dementia, TIA ENT History: Other Cardiac History: Arrhythmia, Congestive Heart Failure, High Cholesterol, Peripheral Vascular Disease, Other Respiratory History: No Pertinent History Endocrine Medical History: Diabetes Type II Musculoskelatal History: No Pertinent History GI Medical History: Cirrhosis History: No Pertinent History Pyscho-Social History: Anxiety, Depression Male Reproductive Disorders: Prostate Problems Comment: R SHOULDER INSTABILITY, A FIB. Pt unable to give history - recalled from previous visit - Past Surgical History Past Surgical History: Yes Neuro Surgical History: No Pertinent History Cardiac History: No Pertinent History Respiratory Surgery: No Pertinent History GI Surgical History: No Pertinent History Genitourinary Surgical Hx: No Pertinent History Musculskeletal Surgical Hx: Orthopedic Surgery Male Surgical History: No Pertinent History Other Surgical History: RIGHT shoulder. Pt unable to give history - recalled from previous visit Significant Family History: no pertinent family hx - Social History Smoking Status: Unknown if ever smoked How long have you smoked: 40 Exposure to second hand smoke: Yes Alcohol: Rarely Drug Use: none - Social Determinants of Health Will the patient participate in the screening: Yes Do you worry about a steady place to live?: No Do you have any problems with any of the following?: No known problems In the past 12 months,have you had to go without utilities?: No Have you or anyone in your house had to go without enough: No Transportation Issues: No Has anyone in your support network made you feel unsafe?: No Does the patient want assistance with any of the above?: No - Physical Exam Vital Signs: Vital Signs - 24 hr Temp Pulse Resp BP BP Pulse Ox 03/08/24 13:00 90 21 102/76 100 03/08/24 12:58 96 03/08/24 12:55 96 H 19 99/76 100 03/08/24 12:51 103 H 14 105/63 97 03/08/24 12:45 103 H 20 114/84 98 03/08/24 12:40 103 H 18 118/80 96 03/08/24 12:35 106 H 19 102/82 96 03/08/24 12:30 95 H 21 106/86 95 03/08/24 12:25 103 H 16 114/79 97 03/08/24 12:21 95 H 23 103/72 100 03/08/24 12:15 101 H 22 126/79 100 03/08/24 12:10 103 H 24 105/84 91 L 03/08/24 12:05 101 H 16 106/73 100 03/08/24 12:01 102 H 24 98/59 100 03/08/24 11:55 95 H 20 119/92 100 03/08/24 11:53 102 H 22 114/85 99 03/08/24 11:36 102 H 24 127/92 94 L 03/08/24 11:30 126/97 03/08/24 11:00 89 16 126/85 96 03/08/24 10:30 95 H 15 131/97 96 03/08/24 10:00 115 H 14 136/97 100 03/08/24 09:30 98 H 14 125/99 03/08/24 09:29 97.9 F 111 H 18 125/99 98 General Appearance: no apparent distress Neurologic Exam: alert, oriented x 3, cooperative Eye Exam: PERRL/EOMI Ears, Nose, Throat Exam: normal ENT inspection Neck Exam: normal inspection Respiratory Exam: normal breath sounds, lungs clear Cardiovascular Exam: normal heart sounds, tachycardia Gastrointestinal/Abdomen Exam: soft, normal bowel sounds Male Genitalia Exam: other (indwelling catheter) Rectal Exam: deferred Back Exam: normal inspection Extremity Exam: limited range of motion (right shoulder), other (warm to touch, edema noted to mid deltoid Right great toe with necrotic tissue extending from tip to mid toe Right third toe with necrotic tissue extending from tip to mid toe Left second toe with necrotic tissue extending to mid toe Left great toe with healing ulcer Left fifth toe ulcer) Results - Labs Lab/Micro Results: Lab Results-Last 24 Hours 03/08/24 03/08/24 03/08/24 Range/Units 10:15 10:15 10:15 Specimen Type WBC 8.2 (4.0-10.5) x10^3/uL RBC 4.51 (4.1-5.6) x10^6/uL Hgb 11.9 L (12.5-18.0) g/dL Hct 37.1 L (42-50) % MCV 82.3 (78-100) fL MCH 26.4 (26-32) pg MCHC 32.1 (32-36) g/dL RDW 14.1 H (11.5-14.0) % Plt Count 550 H (150-450) x10^3/uL MPV 9.8 (7.5-11.0) fL Gran % 53.3 (36.0-66.0) % Immature Gran % (Auto) 0.5 H (0.00-0.4) % Nucleat RBC Rel Count 0.0 (0.00-0.1) % Eos # (Auto) 0.38 (0-0.5) x10^3/uL Immature Gran # (Auto) 0.04 H (0.00-0.03) x10^3u/L Absolute Lymphs (auto) 2.58 (1.0-4.6) x10^3/uL Absolute Monos (auto) 0.66 (0.0-1.3) x10^3/uL Absolute Nucleated RBC 0.00 (0.00-0.01) x10^3u/L Lymphocytes % 31.7 (24.0-44.0) % Monocytes % 8.1 (0.0-12.0) % Eosinophils % 4.7 (0.00-5.0) % Basophils % 1.7 (0.0-0.4) % Absolute Granulocytes 4.35 (1.4-6.9) x10^3/uL Basophils # 0.14 (0-0.4) x10^3/uL 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 ENGINEER Sodium 136 (135-145) mmol/L Potassium 3.9 (3.5-5.1) mmol/L Chloride 99 (98-107) mmol/L Carbon Dioxide 30 (22-30) mmol/L Anion Gap 11.2 (5-15) MEQ/L BUN 21 H (9-20) mg/dL Creatinine 0.77 (0.66-1.25) mg/dL Estimated GFR 101.2 ML/MIN Glucose 200 H (74-106) mg/dL Lactic Acid (0.4-2.0) Uric Acid 4.1 (3.5-7.2) mg/dL Calcium 9.4 (8.4-10.2) mg/dL Total Bilirubin 0.40 (0.2-1.3) mg/dL AST 53 (17-59) U/L ALT 47 (0-50) U/L Alkaline Phosphatase 270 H (38-126) U/L Serum Total Protein 7.2 (6.3-8.2) g/dL Albumin 3.2 L (3.5-5.0) g/dL Procalcitonin 0.189 H (0.030-0.080) ng/mL Fluid Color (COLORLESS) Fluid Clarity (CLEAR) Fluid WBC (Auto) x10^3u/L Fluid RBC (Auto) x10^6u/L Fld Polynuclear WBCs % % Fl Mononuclear % Auto % 03/08/24 03/08/24 Range/Units 10:50 12:36 Specimen Type SYNOVIAL WBC (4.0-10.5) x10^3/uL RBC (4.1-5.6) x10^6/uL Hgb (12.5-18.0) g/dL Hct (42-50) % MCV (78-100) fL MCH (26-32) pg MCHC (32-36) g/dL RDW (11.5-14.0) % Plt Count (150-450) x10^3/uL MPV (7.5-11.0) fL Gran % (36.0-66.0) % Immature Gran % (Auto) (0.00-0.4) % Nucleat RBC Rel Count (0.00-0.1) % Eos # (Auto) (0-0.5) x10^3/uL Immature Gran # (Auto) (0.00-0.03) x10^3u/L Absolute Lymphs (auto) (1.0-4.6) x10^3/uL Absolute Monos (auto) (0.0-1.3) x10^3/uL Absolute Nucleated RBC (0.00-0.01) x10^3u/L Lymphocytes % (24.0-44.0) % Monocytes % (0.0-12.0) % Eosinophils % (0.00-5.0) % Basophils % (0.0-0.4) % Absolute Granulocytes (1.4-6.9) x10^3/uL Basophils # (0-0.4) x10^3/uL ESR Sodium (135-145) mmol/L Potassium (3.5-5.1) mmol/L Chloride (98-107) mmol/L Carbon Dioxide (22-30) mmol/L Anion Gap (5-15) MEQ/L BUN (9-20) mg/dL Creatinine (0.66-1.25) mg/dL Estimated GFR ML/MIN Glucose (74-106) mg/dL Lactic Acid 1.7 (0.4-2.0) Uric Acid (3.5-7.2) mg/dL Calcium (8.4-10.2) mg/dL Total Bilirubin (0.2-1.3) mg/dL AST (17-59) U/L ALT (0-50) U/L Alkaline Phosphatase (38-126) U/L Serum Total Protein (6.3-8.2) g/dL Albumin (3.5-5.0) g/dL Procalcitonin (0.030-0.080) ng/mL Fluid Color XANTHROCHORMIC A (COLORLESS) Fluid Clarity CLOUDY A (CLEAR) Fluid WBC (Auto) 107.638 x10^3u/L Fluid RBC (Auto) 0.056 x10^6u/L Fld Polynuclear WBCs % 94.900 % Fl Mononuclear % Auto 5.100 % - Radiology Impressions Radiology Exams & Impressions: Radiology Procedures Category Date Time Status SHOULDER Stat Exams 03/08/24 09:59 Completed Assessment/Plan (1) Septic joint of right shoulder region Current Visit: Yes Status: Acute Assessment & Plan: -Ortho consulted note reviewed,aspiration performed - fluid was sent to the lab for evaluation to include cultures, gram stain, cell count and crystal evaluation - plan for arthroscopic lavage 03/09/24 -Hold Eliquis -Pain control -Vanc/Zosyn -follow cultures -blood/urine/wound cultures pending Code(s): M00.9 - PYOGENIC ARTHRITIS, UNSPECIFIED (2) Gangrene of toe of both feet Current Visit: Yes Status: Acute Assessment & Plan: -Podiatry consulted, appreciate recs -arterial doppler pending -XRay bilateral feet Code(s): I96 - GANGRENE, NOT ELSEWHERE CLASSIFIED (3) DM (diabetes mellitus) Current Visit: No Status: Acute Qualifiers: Diabetes mellitus type: type 2 Diabetes mellitus senior living insulin use: unspecified terminal manager insulin use status Diabetes mellitus complication detail: with foot ulcer Assessment & Plan: -SSI/glargine -ADA diet -npo after midnight -A1c 6.64 Code(s): E11.9 - TYPE 2 DIABETES MELLITUS WITHOUT COMPLICATIONS (4) CHF (congestive heart failure) Current Visit: Yes Status: Acute Assessment & Plan: Most recent echo reviewed from 06/21/23: EF at 50% IMPRESSION: 1) LOW NORMAL CONTRACTILITY OF THE LEFT VENTRICLE. 2) MILD ASYMMETRIC LEFT VENTRICULAR HYPERTROPHY INVOLVING THE LEFT VENTRICULAR SEPTUM. 3) MILD LEFT VENTRICULAR DILATATION. 4) SEVERE LEFT ATRIAL DILATATION. 5) MILD AORTIC REGURGITATION. 6) MODERATE TO SEVERE MITRAL REGURGITATION. 7) MODERATE TRICUSPID REGURGITATION. 8) MODERATE PULMONARY HYPERTENSION. 9) MODERATE PULMONIC REGURGITATION. -Does not appear to be in exacerbation -continue home medications Code(s): I50.9 - HEART FAILURE, UNSPECIFIED (5) Atrial fibrillation Current Visit: No Status: Acute Qualifiers: Atrial fibrillation type: paroxysmal Qualified Code(s): I48.0 - Paroxysmal atrial fibrillation Assessment & Plan: -tele -Eliquis on hold for procedure scheduled for 03/09/24 -continue metoprolol VTE: Eliquis - on hold PPI: protonix Dispo: pending surgical consult Code status: Full Code Code(s): I48.91 - UNSPECIFIED ATRIAL FIBRILLATION (6) UTI (urinary tract infection) Current Visit: Yes Status: Acute Assessment & Plan: -UA suspicious for UTI, patient with indwelling catheter, could be colonization, IV abx with vanc/zosyn - follow cultures Code(s): N39.0 - URINARY TRACT INFECTION, SITE NOT SPECIFIED (7) HTN (hypertension) Current Visit: Yes Status: Acute Assessment & Plan: -stable, continue home meds - monitor closely Code(s): I10 - ESSENTIAL (PRIMARY) HYPERTENSION
[2024-03-08] MEDS ORDERED: TYLENOL 325 MG PO PRN (14:16)
[2024-03-08] MEDS ORDERED: Zofran 4 MG/2 ML VIAL IV PRN (14:16)
[2024-03-08 14:22] LABS: Appearance Cloudy (Clear); Bilirubin Negative (Negative); Blood Trace (Negative); Glucose, Urine Negative (Negative); Ketones Negative (Negative); Leukocyte Esterase Large (Negative); Nitrite Positive (Negative); Ph 5.5 (4.6-8.0); Protein,Urine Dip 100 (Negative)
[2024-03-08 14:24] LABS: ADD URINE CULTURE? ORDERED SEPARATELY (NO); Bacteria Few /HPF (None Seen); Epithelial Cells Rare /HPF (None Seen); Hyaline Casts None Seen /LPF (0-2); RBC 0-2 /HPF (0-5); WBC 51-100 /HPF (0-5)
--- NOTE | 2024-03-08 14:53 | CONS ---
CONSULT DATE: 03/08/2024 HISTORY: Right shoulder pain and dislocation. PAST MEDICAL HISTORY: This 64-year-old male was brought to the hospital emergency room today from a senior living where he resides. He was brought in for evaluation of right shoulder pain and swelling. The patient does have a history of dementia but indicated that swelling had been going on for a week. No history of trauma. He had been out of the facility with family about two weeks ago. He was seen by the physician at the senior living this week and an x-ray had been obtained at the senior living that was interpreted as being negative. In the emergency room here today he had laboratory work up and an x-ray obtained of his shoulder. This radiograph showed evidence of a right shoulder dislocation. The right shoulder was noted to be markedly swollen. The patient reported pain level 8 out of 10 right shoulder with limited range of motion. PAST MEDICAL HISTORY: Hypertension, hyperlipidemia, chronic obstructive pulmonary disease, atrial fibrillation, congestive heart failure, dementia, chronic indwelling catheter, gastroesophageal reflux disease syndrome. HOME MEDICATIONS: Atorvastatin, duloxetine, Eliquis, potassium chloride, Plavix, metoprolol, torsemide, Tylenol, Albuterol, amlodipine, ferrous sulfate, Medihoney, hydrocodone, Lantus Insulin, Lispro Insulin, melatonin, topical miconazole, topical Povidone Iodine. ALLERGIES: NKDA. PHYSICAL EXAMINATION: The patient was evaluated in the emergency room and he was supine on an ED stretcher. He is awake and did respond to questions. Speech is somewhat difficult to comprehend but he was able to articulate that he had symptoms for about a week. EXTREMITIES: Right shoulder remarkably swollen. Skin temperature mildly elevated. No visible erythema. Limited painful range of motion in shoulder although hand and wrist exam are benign, distal pulses intact. Left upper extremity exam grossly normal. LAB DATA AND TESTS: X-RAYS: Right shoulder three views were reviewed. There is evidence of glenohumeral incongruity. The lateral view or wide view appears to show anteriorly displaced proximal humerus. LABS: WBC count 8.3, hemoglobin 11.9, hematocrit 37.1, PLT count 550,000. Sodium 136, potassium 3.9, chloride 99, carbon dioxide 30, BUN 21, creatinine 0.77. IMPRESSION: Effusion right shoulder with dislocation. I believe that the dislocation is secondary to the amount of swelling and therefore recommended aspiration of the shoulder to determine if this is hemarthrosis. I discussed this with the emergency room physician. We attempted to contact family but were unsuccessful. We did discuss the procedure with the patient. I made an attempted aspiration through an anterior approach after Betadine prep and obtained 0.5 cc of blood tinged fluid. Under ultrasound guidance, Dr. Bagley was able to aspirate approximately 20 cc of greenish-yellow thick fluid consistent with an inflammatory process. The fluid was sent to the lab for evaluation to include cultures, gram stain, cell count and crystal evaluation. The crystal evaluation gets sent out to a reference lab. Test results are pending at this time. I will continue to follow but suspect that this is a septic shoulder and the patient will need to have arthroscopic lavage.
--- NOTE | 2024-03-08 15:13 | XRAY ---
Indication: Toe necrosis. Comparison: December 17, 2023 3 nonweightbearing views left foot unchanged again demonstrating cortical irregularity luda 1st/2nd toes and tiny heel spur. No new/acute bony, articular, or soft tissue abnormalities.
--- NOTE | 2024-03-08 15:15 | XRAY ---
Indication: Toe necrosis. Comparison: December 17, 2023 3 nonweightbearing views right foot demonstrates grossly stable cortical irregularity tuft 1st toe with overlying soft tissue swelling. Again incidental tiny heel spurs. No other bony, articular, or soft tissue abnormalities.
[2024-03-08 15:25] LABS: PROTIME 10.9 SECONDS (9.4-12.5); PTT 32.1 SECONDS (25.1-36.5)
[2024-03-08] MEDS ORDERED: NON-FORMULARY ITEM (Sodium Phosphate,Mono-Dibasic [Fleet Enema] 133 ML Enema) RC PRN (15:36)
[2024-03-08] MEDS ORDERED: PROVENTIL 2.5 MG/3 ML NEB IH PRN (15:36)
[2024-03-08] MEDS ORDERED: NYSTOP POWDER 15 GM TOP PRN (15:49)
[2024-03-08] MEDS ORDERED: MEDICATION INTERVENTION MC SCH (16:00)
--- NOTE | 2024-03-08 16:34 | PCM.NOTE ---
Date and Time: 03/08/241627 Subjective Assessment: Follow-up right shoulder pain this patient was seen today in the ER, I was called in to see him because of pain in the right shoulder and x-rays that were interpreted as a dislocated shoulder. The x-rays did show incongruity in the shoulder but the shoulder was dramatically swollen. We were able to perform an ultrasound assisted aspirate obtained 20 cc of fluid that appeared purulent We were unable to get history because we could not reach the daughter and the patient has dementia This afternoon I spoke with the daughter and had a significant amount of additional history provided She states he was living independently on his own in [facility] and he then was hospitalized in [place] for a heart condition last year in August he had 2 heart stents placed. She states that during that time he started to get hip pain but nothing was discovered or treated. He then returned home where he continued to live independently. She states that she went to visit him 1 day after 4 months at home with hip pain and found him to be pale and he was then brought to [place] for a day and then transferred to [facility]. 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 He was in [place] for a month altogether and was in a half-way part of the time. He was readmitted to [facility] in [place] soon after that. He was transferred to an ECF here in [place] in late January. He then transferred him in today to be evaluated for the shoulder. In addition she states that he does have a history of a shoulder dislocation about 2 years ago. She states that they did put it back in but it is never worked right. He has been going to wound care for the hip infection and had his last appointment in [place] last week. She states that the wounds were not completely healed. Objective Exam Comments: 03/08/24 16:37 Patient was examined in the emergency room, currently unchanged Objective Data Vital Signs: Vital Signs - 24 hr Temp Pulse Resp BP BP Pulse Ox 03/08/24 16:16 96 03/08/24 14:54 100 H 18 99 03/08/24 14:33 97.3 F 102 H 24 94 L 03/08/24 14:05 97.3 F 102 H 24 144/91 94 L 03/08/24 13:00 90 21 102/76 100 03/08/24 12:55 96 H 19 99/76 100 03/08/24 12:51 103 H 14 105/63 97 03/08/24 12:45 103 H 20 114/84 98 03/08/24 12:40 103 H 18 118/80 96 03/08/24 12:35 106 H 19 102/82 96 03/08/24 12:30 95 H 21 106/86 95 03/08/24 12:25 103 H 16 114/79 97 03/08/24 12:21 95 H 23 103/72 100 03/08/24 12:15 101 H 22 126/79 100 03/08/24 12:10 103 H 24 105/84 91 L 03/08/24 12:05 101 H 16 106/73 100 03/08/24 12:01 102 H 24 98/59 100 03/08/24 11:55 95 H 20 119/92 100 03/08/24 11:53 102 H 22 114/85 99 03/08/24 11:36 102 H 24 127/92 94 L 03/08/24 11:30 126/97 03/08/24 11:00 89 16 126/85 96 03/08/24 10:30 95 H 15 131/97 96 03/08/24 10:00 115 H 14 136/97 100 03/08/24 09:30 98 H 14 125/99 03/08/24 09:29 97.9 F 111 H 18 125/99 98 Pain Assessment - Last Documented Pain Intensity 3 Pain Scale Used 0-10 Pain Scale Intake and Output: Intake & Output 03/06/24 03/07/24 03/08/24 03/09/24 11:59 11:59 11:59 11:59 Weight 102.8 kg 103.8 kg Lab Results: Lab Results-Last 24 Hours 03/08/24 03/08/24 03/08/24 Range/Units 10:15 10:15 10:15 Specimen Type WBC 8.2 (4.0-10.5) x10^3/uL RBC 4.51 (4.1-5.6) x10^6/uL Hgb 11.9 L (12.5-18.0) g/dL Hct 37.1 L (42-50) % MCV 82.3 (78-100) fL MCH 26.4 (26-32) pg MCHC 32.1 (32-36) g/dL RDW 14.1 H (11.5-14.0) % Plt Count 550 H (150-450) x10^3/uL MPV 9.8 (7.5-11.0) fL Gran % 53.3 (36.0-66.0) % Immature Gran % (Auto) 0.5 H (0.00-0.4) % Nucleat RBC Rel Count 0.0 (0.00-0.1) % Eos # (Auto) 0.38 (0-0.5) x10^3/uL Immature Gran # (Auto) 0.04 H (0.00-0.03) x10^3u/L Absolute Lymphs (auto) 2.58 (1.0-4.6) x10^3/uL Absolute Monos (auto) 0.66 (0.0-1.3) x10^3/uL Absolute Nucleated RBC 0.00 (0.00-0.01) x10^3u/L Lymphocytes % 31.7 (24.0-44.0) % Monocytes % 8.1 (0.0-12.0) % Eosinophils % 4.7 (0.00-5.0) % Basophils % 1.7 (0.0-0.4) % Absolute Granulocytes 4.35 (1.4-6.9) x10^3/uL Basophils # 0.14 (0-0.4) x10^3/uL ESR COMPUTING SERVICES DIRECTOR PT (9.4-12.5) SECONDS INR (0.8-3.0) APTT (25.1-36.5) SECONDS Sodium 136 (135-145) mmol/L Potassium 3.9 (3.5-5.1) mmol/L Chloride 99 (98-107) mmol/L Carbon Dioxide 30 (22-30) mmol/L Anion Gap 11.2 (5-15) MEQ/L BUN 21 H (9-20) mg/dL Creatinine 0.77 (0.66-1.25) mg/dL Estimated GFR 101.2 ML/MIN Glucose 200 H (74-106) mg/dL Lactic Acid (0.4-2.0) Uric Acid 4.1 (3.5-7.2) mg/dL Calcium 9.4 (8.4-10.2) mg/dL Total Bilirubin 0.40 (0.2-1.3) mg/dL AST 53 (17-59) U/L ALT 47 (0-50) U/L Alkaline Phosphatase 270 H (38-126) U/L Serum Total Protein 7.2 (6.3-8.2) g/dL Albumin 3.2 L (3.5-5.0) g/dL Procalcitonin 0.189 H (0.030-0.080) ng/mL Urine Color (Yellow) Urine Appearance (Clear) Urine pH (4.6-8.0) Ur Specific [place] (1.005-1.030) Urine Protein (Negative) Urine Glucose (UA) (Negative) mg/dL Urine Ketones (Negative) Urine Blood (Negative) Urine Nitrite (Negative) Urine Bilirubin (Negative) Urine Urobilinogen (0.2) mg/dL Ur Leukocyte Esterase (Negative) U Hyaline Cast (Auto) (0-2) /LPF Urine Microscopic RBC (0-5) /HPF Urine Microscopic WBC (0-5) /HPF Ur Epithelial Cells (None Seen) /HPF Urine Bacteria (None Seen) /HPF Urine Culture Reflexed (NO) Fluid Color (COLORLESS) Fluid Clarity (CLEAR) Fluid WBC (Auto) x10^3u/L Fluid RBC (Auto) x10^6u/L Fld Polynuclear WBCs % % Fl Mononuclear % Auto % 03/08/24 03/08/24 03/08/24 Range/Units 10:50 12:36 13:09 Specimen Type SYNOVIAL WBC (4.0-10.5) x10^3/uL RBC (4.1-5.6) x10^6/uL Hgb (12.5-18.0) g/dL Hct (42-50) % MCV (78-100) fL MCH (26-32) pg MCHC (32-36) g/dL RDW (11.5-14.0) % Plt Count (150-450) x10^3/uL MPV (7.5-11.0) fL Gran % (36.0-66.0) % Immature Gran % (Auto) (0.00-0.4) % Nucleat RBC Rel Count (0.00-0.1) % Eos # (Auto) (0-0.5) x10^3/uL Immature Gran # (Auto) (0.00-0.03) x10^3u/L Absolute Lymphs (auto) (1.0-4.6) x10^3/uL Absolute Monos (auto) (0.0-1.3) x10^3/uL Absolute Nucleated RBC (0.00-0.01) x10^3u/L Lymphocytes % (24.0-44.0) % Monocytes % (0.0-12.0) % Eosinophils % (0.00-5.0) % Basophils % (0.0-0.4) % Absolute Granulocytes (1.4-6.9) x10^3/uL Basophils # (0-0.4) x10^3/uL ESR PT (9.4-12.5) SECONDS INR (0.8-3.0) APTT (25.1-36.5) SECONDS Sodium (135-145) mmol/L Potassium (3.5-5.1) mmol/L Chloride (98-107) mmol/L Carbon Dioxide (22-30) mmol/L Anion Gap (5-15) MEQ/L BUN (9-20) mg/dL Creatinine (0.66-1.25) mg/dL Estimated GFR ML/MIN Glucose (74-106) mg/dL Lactic Acid 1.7 (0.4-2.0) Uric Acid (3.5-7.2) mg/dL Calcium (8.4-10.2) mg/dL Total Bilirubin (0.2-1.3) mg/dL AST (17-59) U/L ALT (0-50) U/L Alkaline Phosphatase (38-126) U/L Serum Total Protein (6.3-8.2) g/dL Albumin (3.5-5.0) g/dL Procalcitonin (0.030-0.080) ng/mL Urine Color Yellow (Yellow) Urine Appearance Cloudy A (Clear) Urine pH 5.5 (4.6-8.0) Ur Specific [place] 1.020 (1.005-1.030) Urine Protein 100 A (Negative) Urine Glucose (UA) Negative (Negative) mg/dL Urine Ketones Negative (Negative) Urine Blood Trace (Negative) Urine Nitrite Positive A (Negative) Urine Bilirubin Negative (Negative) Urine Urobilinogen 1.0 A (0.2) mg/dL Ur Leukocyte Esterase Large A (Negative) U Hyaline Cast (Auto) None Seen (0-2) /LPF Urine Microscopic RBC 0-2 (0-5) /HPF Urine Microscopic WBC 51-100 A (0-5) /HPF Ur Epithelial Cells Rare (None Seen) /HPF Urine Bacteria Few A (None Seen) /HPF Urine Culture Reflexed ORDERED SEPARATELY (NO) Fluid Color XANTHROCHORMIC A (COLORLESS) Fluid Clarity CLOUDY A (CLEAR) Fluid WBC (Auto) 107.638 x10^3u/L Fluid RBC (Auto) 0.056 x10^6u/L Fld Polynuclear WBCs % 94.900 % Fl Mononuclear % Auto 5.100 % 03/08/24 Range/Units 15:05 Specimen Type WBC (4.0-10.5) x10^3/uL RBC (4.1-5.6) x10^6/uL Hgb (12.5-18.0) g/dL Hct (42-50) % MCV (78-100) fL MCH (26-32) pg MCHC (32-36) g/dL RDW (11.5-14.0) % Plt Count (150-450) x10^3/uL MPV (7.5-11.0) fL Gran % (36.0-66.0) % Immature Gran % (Auto) (0.00-0.4) % Nucleat RBC Rel Count (0.00-0.1) % Eos # (Auto) (0-0.5) x10^3/uL Immature Gran # (Auto) (0.00-0.03) x10^3u/L Absolute Lymphs (auto) (1.0-4.6) x10^3/uL Absolute Monos (auto) (0.0-1.3) x10^3/uL Absolute Nucleated RBC (0.00-0.01) x10^3u/L Lymphocytes % (24.0-44.0) % Monocytes % (0.0-12.0) % Eosinophils % (0.00-5.0) % Basophils % (0.0-0.4) % Absolute Granulocytes (1.4-6.9) x10^3/uL Basophils # (0-0.4) x10^3/uL ESR PT 10.9 (9.4-12.5) SECONDS INR 1.00 (0.8-3.0) APTT 32.1 (25.1-36.5) SECONDS Sodium (135-145) mmol/L Potassium (3.5-5.1) mmol/L Chloride (98-107) mmol/L Carbon Dioxide (22-30) mmol/L Anion Gap (5-15) MEQ/L BUN (9-20) mg/dL Creatinine (0.66-1.25) mg/dL Estimated GFR ML/MIN Glucose (74-106) mg/dL Lactic Acid (0.4-2.0) Uric Acid (3.5-7.2) mg/dL Calcium (8.4-10.2) mg/dL Total Bilirubin (0.2-1.3) mg/dL AST (17-59) U/L ALT (0-50) U/L Alkaline Phosphatase (38-126) U/L Serum Total Protein (6.3-8.2) g/dL Albumin (3.5-5.0) g/dL Procalcitonin (0.030-0.080) ng/mL Urine Color (Yellow) Urine Appearance (Clear) Urine pH (4.6-8.0) Ur Specific [place] (1.005-1.030) Urine Protein (Negative) Urine Glucose (UA) (Negative) mg/dL Urine Ketones (Negative) Urine Blood (Negative) Urine Nitrite (Negative) Urine Bilirubin (Negative) Urine Urobilinogen (0.2) mg/dL Ur Leukocyte Esterase (Negative) U Hyaline Cast (Auto) (0-2) /LPF Urine Microscopic RBC (0-5) /HPF Urine Microscopic WBC (0-5) /HPF Ur Epithelial Cells (None Seen) /HPF Urine Bacteria (None Seen) /HPF Urine Culture Reflexed (NO) Fluid Color (COLORLESS) Fluid Clarity (CLEAR) Fluid WBC (Auto) x10^3u/L Fluid RBC (Auto) x10^6u/L Fld Polynuclear WBCs % % Fl Mononuclear % Auto % Radiology Exams: Radiology Procedures Category Date Time Status DIA/LIMB PRESSURES BILATERAL [US] Stat Exams 03/08/24 14:45 Ordered ARTERIAL BILAT LOWER EXTREMITY [US] Stat Exams 03/08/24 14:34 Ordered FOOT (MINIMUM 3 VIEWS) Urgent Exams 03/08/24 14:33 Completed FOOT (MINIMUM 3 VIEWS) Urgent Exams 03/08/24 14:33 Completed MRI UPPER EXT JOINT W/O CONTRA [MRI] Routine Exams 03/08/24 16:24 Ordered PELVIS (1 OR 2 VIEWS) Stat Exams 03/08/24 16:26 Ordered SHOULDER Stat Exams 03/08/24 09:59 Completed Multi-Disciplinary Progress Notes: Multi-Disciplinary Progress Notes 03/08/24 14:47 Case Management Note by Asya Corea TS/W MICHAEL AT [facility]- PATIENT THERE UNDER HIS MEDICAID- NOTHING NEEDED TO RETURN TO FACILITY. PATIENT CAN RETURN TO FACILITY WHEN MEDICALLY READY Initialized on 03/08/24 14:47 - END OF NOTE Assessment/Plan (1) Septic joint of right shoulder region Current Visit: Yes Status: Acute Assessment & Plan: in light of the new history, additional diagnostic studies are needed. I have attempted to order a stat MRI of the right shoulder however it cannot be done until tomorrow afternoon so a CT scan will be ordered stat and should be done today. Additional studies will also be ordered of the hip area. Wound care team will need to evaluate his hip region for possible need for additional wound care while hospitalized Code(s): M00.9 - PYOGENIC ARTHRITIS, UNSPECIFIED
[2024-03-08] MEDS: PROTONIX 40 MG IV IV SCH (16:43)
--- NOTE | 2024-03-08 17:11 | XRAY ---
Indication: Gangrene toes. Two-dimensional sonogram and color Doppler imaging major arteries left and right leg performed. Comparison: None Examination right leg demonstrates widely patent common femoral, deep femoral, superficial femoral, popliteal, posterior tibial, and dorsal pedal arteries. Arterial waveforms are multiphasic throughout the right leg. Examination left leg demonstrates widely patent common femoral, deep femoral, superficial femoral, popliteal, posterior tibial, and dorsal pedal arteries. Arterial waveforms are multiphasic throughout left leg. Impression: Left and right leg arterial sonogram negative for critical stenosis/obstruction.
--- NOTE | 2024-03-08 17:13 | XRAY ---
Indication: Gangrene toes. Bilateral ankle brachial index exam performed. Comparison: None Right arm brachial pressure is 131 and used to calculate left/right ABIs. Right ankle pressure is 155. Ankle brachial index is 1.18, normal. Left ankle pressure is 147. Ankle brachial index is 1.12, normal. Impression: Left and right ABIs are normal.
[2024-03-08] MEDS: PIPERACILLIN/TAZOBACTAM 3.375 GM in Sodium Chloride 100ML MINI-BAG PLUS 100 ML IV SCH (18:16)
[2024-03-08] MEDS: NORCO 5/325 MG PO PRN (20:30)
[2024-03-08] MEDS: MELATONIN PO SCH (22:27)
[2024-03-08] MEDS: ZOCOR 20MG PO SCH (22:28)
[2024-03-08] MEDS: Lantus Insulin SQ SCH (22:28)
[2024-03-08] MEDS: VANCOMYCIN 1 GRAM/200 ML BAG 1 GM/200 ML PIGGYBACK IV SCH (22:40)
[2024-03-09 04:58] LABS: BASOPHIL % 2.3 % (0.0-0.4); Basophil (Absolute #) 0.17 x10^3/uL (0-0.4); Eosinophil % 5.7 % (0.00-5.0); Eosinophil (Absolute #) 0.43 x10^3/uL (0-0.5); Hematocrit 35.9 % (42-50); Hemoglobin 11.2 g/dL (12.5-18.0); IMMATURE GRAN # 0.03 x10^3u/L (0.00-0.03); IMMATURE GRAN % 0.4 % (0.00-0.4); Lymphocyte (Absolute #) 2.08 x10^3/uL (1.0-4.6); Lymphocytes % 27.7 % (24.0-44.0); Mean Cell Volume 84.1 fL (78-100); Mean Corpuscular Hemoglobin 26.2 pg (26-32); Mean Corpuscular Hgb Concent. 31.2 g/dL (32-36); Mean Platelet Volume 9.6 fL (7.5-11.0); Monocyte (Absolute #) 0.61 x10^3/uL (0.0-1.3); Monocytes % 8.1 % (0.0-12.0); Neutrophil % 55.8 % (36.0-66.0); Platelet Count 516 x10^3/uL (150-450); Red Blood Count 4.27 x10^6/uL (4.1-5.6); Red Cell Distribution Width 14.2 % (11.5-14.0); White Blood Count 7.5 x10^3/uL (4.0-10.5)
[2024-03-09 05:33] LABS: ANION GAP 8.9 MEQ/L (5-15); BILIRUBIN,TOTAL 0.3 mg/dL (0.2-1.3); Creatinine 1 0.96 mg/dL (0.66-1.25); EST GLOMERULAR FILTRATION RATE 89.4 ML/MIN; PREALBUMIN 11.58 mg/dL (17.6-36.0); Potassium 3.6 mmol/L (3.5-5.1); Total Protein 7.2 g/dL (6.3-8.2)
--- NOTE | 2024-03-09 08:29 | XRAY ---
Indication: Pain. History hip infection. Comparison: None Single AP pelvis demonstrates tiny left superior acetabular subcortical cyst, mild degenerative changes visualized lower lumbar spine, and Addison catheter in situ. No other bony, articular, or soft tissue abnormalities.
--- NOTE | 2024-03-09 08:40 | XRAY ---
Indication: Abscess. Dislocation. Multiple contiguous axial images obtained through the right shoulder. Sagittal and coronal reformatted images obtained. Comparison: None Right shoulder articulation anatomic with large multiloculated effusion measuring at least 12.9 x 10.8 x 11.3 cm. Effusion demonstrates tiny air bubbles either from attempted aspiration versus gas-forming infection. Multiple prominent right axillary lymph nodes presumed reactive. Osseous structures demineralized. Humeral head demonstrates tiny subcortical cysts probably degenerative. Moderate acromioclavicular degenerative arthropathy. Posterior lateral humeral head demonstrates concave deformity, probable Hill-Sachs deformity from chronic dislocation. A few faint curvilinear calcifications anterior to humeral neck either degenerative versus old trauma. No acute fracture, suspicious bony lesions, or osseous destructive process. Elsewhere degenerative changes visualized cervical spine and mild scattered right carotid calcifications. Visualized right lung clear with incidental minimal dependent atelectasis. Impression: 1. Large multiloculated right shoulder effusion concerning for septic joint. Tiny air bubbles either iatrogenic versus gas-forming infection. Multiple prominent reactive right axillary lymph nodes. 2. Chronic findings including osteopenia, humeral head subcortical cysts, AC degenerative arthropathy, Hill-Sachs deformity, faint heterotopic calcifications anterior to humeral neck, cervical degenerative spondylosis, and arteriosclerotic disease.
--- NOTE | 2024-03-09 09:13 | PCM.CONS ---
Podiatry HPI - Consult Date of Consultation Date: 03/08/24 Reason for Consult: Gangrenous toes bilateral lower extremity Consulting Provider: ANDREZ ROJO DPM - [facility] History of Present Illness: Thanh is a very pleasant 64-year-old male with a significant past medical history of congestive heart failure coronary artery disease, hypertension, peripheral neuropathy secondary to diabetes mellitus, A-fib who presented from the [facility] facility for concerns of a septic shoulder joint. He was consulted to my service on full-body inspection where multiple gangrenous digits were identified to the right hallux and the third digit as well as the left second digit. Subjective examination is limited secondary to patient's altered mental status/dementia. Daughter is power of bankruptcy attorney. Patient denies any pain to the bilateral lower extremities secondary to his neuropathy. Medications & Allergies Home Medications: Home Medication List Atorvastatin Calcium [Lipitor 20MG Tablet] 20 mg PO HS 08/12/16 [History Confirmed 03/08/24] Duloxetine HCl 30 mg [Cymbalta 30 MG Capsule] 30 mg PO DAILY 08/12/16 [History Confirmed 03/08/24] Apixaban [Eliquis 2.5 mg Tablet] 5 mg PO BID 08/31/22 [History Confirmed 03/08/24] Potassium Chloride Tab* [Klor Con] 20 meq PO DAILY 08/31/22 [History Confirmed 03/08/24] Clopidogrel Bisulfate [Plavix] 75 mg PO DAILY 12/17/23 [History Confirmed 03/08/24] Metoprolol Succinate 25 mg Xl* [Toprol-Xl 25MG Tablets] 1 tab PO DAILY 12/17/23 [History Confirmed 03/08/24] Torsemide [Soaanz] 40 mg PO DAILY 12/17/23 [History Confirmed 03/08/24] Acetaminophen 325 mg [Tylenol 325 mg] 650 mg PO Q4HPRN PRN 03/08/24 [History Confirmed 03/08/24] Albuterol 2.5 mg/3 ml Neb [Proventil 2.5 mg/3 ml Neb] 3 ml IH Q6HPRN PRN 03/08/24 [History Confirmed 03/08/24] Amlodipine Besylate 10 mg PO DAILY 03/08/24 [History Confirmed 03/08/24] Ferrous Sulfate [Ferosul] 325 mg PO DAILY 03/08/24 [History Confirmed 03/08/24] Honey [Medihoney] 1 applic TP DAILY 03/08/24 [History Confirmed 03/08/24] Hydrocodone/Acetaminophen [Hydrocodone-Acetamin 5-325 mg] 1 tab PO Q6HPRN PRN MDD 4 03/08/24 [History Confirmed 03/08/24] Insulin Glargine [Lantus Insulin] 6 unit SQ HS 03/08/24 [History Confirmed 03/08/24] Insulin Lispro 100 unit SQ QID 03/08/24 [History Confirmed 03/08/24] Melatonin 5 mg PO HS 03/08/24 [History Confirmed 03/08/24] Miconazole Nitrate 1 applic TOP DAILY PRN 03/08/24 [History Confirmed 03/08/24] Povidone-Iodine [Povidone Iodine] 1 ml TOP DAILY 03/08/24 [History Confirmed 03/08/24] Sodium Phosphate,Ceiba-Dibasic [Fleet Enema] 133 ml RC DAILY PRN 03/08/24 [History Confirmed 03/08/24] Thiamine HCl 100 mg PO DAILY 03/08/24 [History Confirmed 03/08/24] glucagon HCL [Glucagon Emergency Kit] 1 mg IJ UD PRN 03/08/24 [History Confirmed 03/08/24] Allergies/Adverse Reactions: Allergies Allergy/AdvReac Type Severity Reaction Status Date / Time No Known Drug Allergies Allergy Verified 12/17/23 06:22 - Past Medical History Past Medical History: Yes Neurological History: Dementia, TIA ENT History: Other Cardiac History: Arrhythmia, Congestive Heart Failure, High Cholesterol, Peripheral Vascular Disease, Other Respiratory History: No Pertinent History Endocrine Medical History: Diabetes Type II Musculoskelatal History: No Pertinent History GI Medical History: Cirrhosis History: No Pertinent History Pyscho-Social History: Anxiety, Depression Male Reproductive Disorders: Prostate Problems Comment: R SHOULDER INSTABILITY, A FIB. Pt unable to give history - recalled from previous visit - Past Surgical History Past Surgical History: Yes Neuro Surgical History: No Pertinent History Cardiac History: No Pertinent History Respiratory Surgery: No Pertinent History GI Surgical History: No Pertinent History Genitourinary Surgical Hx: No Pertinent History Musculskeletal Surgical Hx: Orthopedic Surgery Male Surgical History: No Pertinent History Other Surgical History: RIGHT shoulder. Pt unable to give history - recalled from previous visit Significant Family History: no pertinent family hx - Social History Smoking Status: Unknown if ever smoked How long have you smoked: 40 Exposure to second hand smoke: Yes Alcohol: Rarely Drug Use: none - Social Determinants of Health Will the patient participate in the screening: Yes Do you worry about a steady place to live?: No Do you have any problems with any of the following?: No known problems In the past 12 months,have you had to go without utilities?: No Have you or anyone in your house had to go without enough: No Transportation Issues: No Has anyone in your support network made you feel unsafe?: No Does the patient want assistance with any of the above?: No Physical Exam - General General Appearance: no apparent distress, obese - Neuro Neurologic: Epicritic and protopathic (Absent) - Vascular Peripheral Pulses: Posterior tibialis: 2+, Dorsalis-Pedis: 2+ Capillary Refill Time: < 3 seconds Hair Growth: Symmetrical and Bilateral Varicosities: Negtive Edema: None Skin: Supple, not atrophic (digits 1 and 3 of the right foot and 2 of the left foot with gangrenous changes to the proximal interphalangeal joints) Skin Temperature: Warm to touch - Narrative Narrative Physical Exam: Podiatry Physical Exam Results - Labs Lab/Micro Results: Lab Results-Last 24 Hours 03/08/24 03/08/24 03/08/24 Range/Units 10:15 10:15 10:15 Specimen Type WBC 8.2 (4.0-10.5) x10^3/uL RBC 4.51 (4.1-5.6) x10^6/uL Hgb 11.9 L (12.5-18.0) g/dL Hct 37.1 L (42-50) % MCV 82.3 (78-100) fL MCH 26.4 (26-32) pg MCHC 32.1 (32-36) g/dL RDW 14.1 H (11.5-14.0) % Plt Count 550 H (150-450) x10^3/uL MPV 9.8 (7.5-11.0) fL Gran % 53.3 (36.0-66.0) % Immature Gran % (Auto) 0.5 H (0.00-0.4) % Nucleat RBC Rel Count 0.0 (0.00-0.1) % Eos # (Auto) 0.38 (0-0.5) x10^3/uL Immature Gran # (Auto) 0.04 H (0.00-0.03) x10^3u/L Absolute Lymphs (auto) 2.58 (1.0-4.6) x10^3/uL Absolute Monos (auto) 0.66 (0.0-1.3) x10^3/uL Absolute Nucleated RBC 0.00 (0.00-0.01) x10^3u/L Lymphocytes % 31.7 (24.0-44.0) % Monocytes % 8.1 (0.0-12.0) % Eosinophils % 4.7 (0.00-5.0) % Basophils % 1.7 (0.0-0.4) % Absolute Granulocytes 4.35 (1.4-6.9) x10^3/uL Basophils # 0.14 (0-0.4) x10^3/uL ESR MARRIAGE COUNSELOR PT (9.4-12.5) SECONDS INR (0.8-3.0) APTT (25.1-36.5) SECONDS Sodium 136 (135-145) mmol/L Potassium 3.9 (3.5-5.1) mmol/L Chloride 99 (98-107) mmol/L Carbon Dioxide 30 (22-30) mmol/L Anion Gap 11.2 (5-15) MEQ/L BUN 21 H (9-20) mg/dL Creatinine 0.77 (0.66-1.25) mg/dL Estimated GFR 101.2 ML/MIN Glucose 200 H (74-106) mg/dL POC Glucometer (74 to 106) mg/dL Lactic Acid (0.4-2.0) Uric Acid 4.1 (3.5-7.2) mg/dL Calcium 9.4 (8.4-10.2) mg/dL Total Bilirubin 0.40 (0.2-1.3) mg/dL AST 53 (17-59) U/L ALT 47 (0-50) U/L Alkaline Phosphatase 270 H (38-126) U/L Serum Total Protein 7.2 (6.3-8.2) g/dL Albumin 3.2 L (3.5-5.0) g/dL Prealbumin (17.6-36.0) mg/dL Procalcitonin 0.189 H (0.030-0.080) ng/mL Urine Color (Yellow) Urine Appearance (Clear) Urine pH (4.6-8.0) Ur Specific [place] (1.005-1.030) Urine Protein (Negative) Urine Glucose (UA) (Negative) mg/dL Urine Ketones (Negative) Urine Blood (Negative) Urine Nitrite (Negative) Urine Bilirubin (Negative) Urine Urobilinogen (0.2) mg/dL Ur Leukocyte Esterase (Negative) U Hyaline Cast (Auto) (0-2) /LPF Urine Microscopic RBC (0-5) /HPF Urine Microscopic WBC (0-5) /HPF Ur Epithelial Cells (None Seen) /HPF Urine Bacteria (None Seen) /HPF Urine Culture Reflexed (NO) Fluid Color (COLORLESS) Fluid Clarity (CLEAR) Fluid WBC (Auto) x10^3u/L Fluid RBC (Auto) x10^6u/L Fld Polynuclear WBCs % % Fl Mononuclear % Auto % 03/08/24 03/08/24 03/08/24 Range/Units 10:50 12:36 13:09 Specimen Type SYNOVIAL WBC (4.0-10.5) x10^3/uL RBC (4.1-5.6) x10^6/uL Hgb (12.5-18.0) g/dL Hct (42-50) % MCV (78-100) fL MCH (26-32) pg MCHC (32-36) g/dL RDW (11.5-14.0) % Plt Count (150-450) x10^3/uL MPV (7.5-11.0) fL Gran % (36.0-66.0) % Immature Gran % (Auto) (0.00-0.4) % Nucleat RBC Rel Count (0.00-0.1) % Eos # (Auto) (0-0.5) x10^3/uL Immature Gran # (Auto) (0.00-0.03) x10^3u/L Absolute Lymphs (auto) (1.0-4.6) x10^3/uL Absolute Monos (auto) (0.0-1.3) x10^3/uL Absolute Nucleated RBC (0.00-0.01) x10^3u/L Lymphocytes % (24.0-44.0) % Monocytes % (0.0-12.0) % Eosinophils % (0.00-5.0) % Basophils % (0.0-0.4) % Absolute Granulocytes (1.4-6.9) x10^3/uL Basophils # (0-0.4) x10^3/uL ESR PT (9.4-12.5) SECONDS INR (0.8-3.0) APTT (25.1-36.5) SECONDS Sodium (135-145) mmol/L Potassium (3.5-5.1) mmol/L Chloride (98-107) mmol/L Carbon Dioxide (22-30) mmol/L Anion Gap (5-15) MEQ/L BUN (9-20) mg/dL Creatinine (0.66-1.25) mg/dL Estimated GFR ML/MIN Glucose (74-106) mg/dL POC Glucometer (74 to 106) mg/dL Lactic Acid 1.7 (0.4-2.0) Uric Acid (3.5-7.2) mg/dL Calcium (8.4-10.2) mg/dL Total Bilirubin (0.2-1.3) mg/dL AST (17-59) U/L ALT (0-50) U/L Alkaline Phosphatase (38-126) U/L Serum Total Protein (6.3-8.2) g/dL Albumin (3.5-5.0) g/dL Prealbumin (17.6-36.0) mg/dL Procalcitonin (0.030-0.080) ng/mL Urine Color Yellow (Yellow) Urine Appearance Cloudy A (Clear) Urine pH 5.5 (4.6-8.0) Ur Specific [place] 1.020 (1.005-1.030) Urine Protein 100 A (Negative) Urine Glucose (UA) Negative (Negative) mg/dL Urine Ketones Negative (Negative) Urine Blood Trace (Negative) Urine Nitrite Positive A (Negative) Urine Bilirubin Negative (Negative) Urine Urobilinogen 1.0 A (0.2) mg/dL Ur Leukocyte Esterase Large A (Negative) U Hyaline Cast (Auto) None Seen (0-2) /LPF Urine Microscopic RBC 0-2 (0-5) /HPF Urine Microscopic WBC 51-100 A (0-5) /HPF Ur Epithelial Cells Rare (None Seen) /HPF Urine Bacteria Few A (None Seen) /HPF Urine Culture Reflexed ORDERED SEPARATELY (NO) Fluid Color XANTHROCHORMIC A (COLORLESS) Fluid Clarity CLOUDY A (CLEAR) Fluid WBC (Auto) 107.638 x10^3u/L Fluid RBC (Auto) 0.056 x10^6u/L Fld Polynuclear WBCs % 94.900 % Fl Mononuclear % Auto 5.100 % 03/08/24 03/08/24 03/08/24 Range/Units 15:05 16:40 20:51 Specimen Type WBC (4.0-10.5) x10^3/uL RBC (4.1-5.6) x10^6/uL Hgb (12.5-18.0) g/dL Hct (42-50) % MCV (78-100) fL MCH (26-32) pg MCHC (32-36) g/dL RDW (11.5-14.0) % Plt Count (150-450) x10^3/uL MPV (7.5-11.0) fL Gran % (36.0-66.0) % Immature Gran % (Auto) (0.00-0.4) % Nucleat RBC Rel Count (0.00-0.1) % Eos # (Auto) (0-0.5) x10^3/uL Immature Gran # (Auto) (0.00-0.03) x10^3u/L Absolute Lymphs (auto) (1.0-4.6) x10^3/uL Absolute Monos (auto) (0.0-1.3) x10^3/uL Absolute Nucleated RBC (0.00-0.01) x10^3u/L Lymphocytes % (24.0-44.0) % Monocytes % (0.0-12.0) % Eosinophils % (0.00-5.0) % Basophils % (0.0-0.4) % Absolute Granulocytes (1.4-6.9) x10^3/uL Basophils # (0-0.4) x10^3/uL ESR PT 10.9 (9.4-12.5) SECONDS INR 1.00 (0.8-3.0) APTT 32.1 (25.1-36.5) SECONDS Sodium (135-145) mmol/L Potassium (3.5-5.1) mmol/L Chloride (98-107) mmol/L Carbon Dioxide (22-30) mmol/L Anion Gap (5-15) MEQ/L BUN (9-20) mg/dL Creatinine (0.66-1.25) mg/dL Estimated GFR ML/MIN Glucose (74-106) mg/dL POC Glucometer 114 H 203 H (74 to 106) mg/dL Lactic Acid (0.4-2.0) Uric Acid (3.5-7.2) mg/dL Calcium (8.4-10.2) mg/dL Total Bilirubin (0.2-1.3) mg/dL AST (17-59) U/L ALT (0-50) U/L Alkaline Phosphatase (38-126) U/L Serum Total Protein (6.3-8.2) g/dL Albumin (3.5-5.0) g/dL Prealbumin (17.6-36.0) mg/dL Procalcitonin (0.030-0.080) ng/mL Urine Color (Yellow) Urine Appearance (Clear) Urine pH (4.6-8.0) Ur Specific [place] (1.005-1.030) Urine Protein (Negative) Urine Glucose (UA) (Negative) mg/dL Urine Ketones (Negative) Urine Blood (Negative) Urine Nitrite (Negative) Urine Bilirubin (Negative) Urine Urobilinogen (0.2) mg/dL Ur Leukocyte Esterase (Negative) U Hyaline Cast (Auto) (0-2) /LPF Urine Microscopic RBC (0-5) /HPF Urine Microscopic WBC (0-5) /HPF Ur Epithelial Cells (None Seen) /HPF Urine Bacteria (None Seen) /HPF Urine Culture Reflexed (NO) Fluid Color (COLORLESS) Fluid Clarity (CLEAR) Fluid WBC (Auto) x10^3u/L Fluid RBC (Auto) x10^6u/L Fld Polynuclear WBCs % % Fl Mononuclear % Auto % 03/09/24 03/09/24 03/09/24 Range/Units 04:20 04:20 07:24 Specimen Type WBC 7.5 (4.0-10.5) x10^3/uL RBC 4.27 (4.1-5.6) x10^6/uL Hgb 11.2 L (12.5-18.0) g/dL Hct 35.9 L (42-50) % MCV 84.1 (78-100) fL MCH 26.2 (26-32) pg MCHC 31.2 L (32-36) g/dL RDW 14.2 H (11.5-14.0) % Plt Count 516 H (150-450) x10^3/uL MPV 9.6 (7.5-11.0) fL Gran % 55.8 (36.0-66.0) % Immature Gran % (Auto) 0.4 (0.00-0.4) % Nucleat RBC Rel Count 0.0 (0.00-0.1) % Eos # (Auto) 0.43 (0-0.5) x10^3/uL Immature Gran # (Auto) 0.03 (0.00-0.03) x10^3u/L Absolute Lymphs (auto) 2.08 (1.0-4.6) x10^3/uL Absolute Monos (auto) 0.61 (0.0-1.3) x10^3/uL Absolute Nucleated RBC 0.00 (0.00-0.01) x10^3u/L Lymphocytes % 27.7 (24.0-44.0) % Monocytes % 8.1 (0.0-12.0) % Eosinophils % 5.7 H (0.00-5.0) % Basophils % 2.3 (0.0-0.4) % Absolute Granulocytes 4.20 (1.4-6.9) x10^3/uL Basophils # 0.17 (0-0.4) x10^3/uL ESR PT (9.4-12.5) SECONDS INR (0.8-3.0) APTT (25.1-36.5) SECONDS Sodium 138 (135-145) mmol/L Potassium 3.6 (3.5-5.1) mmol/L Chloride 104 (98-107) mmol/L Carbon Dioxide 29 (22-30) mmol/L Anion Gap 8.9 (5-15) MEQ/L BUN 21 H (9-20) mg/dL Creatinine 0.96 (0.66-1.25) mg/dL Estimated GFR 89.4 ML/MIN Glucose 123 H (74-106) mg/dL POC Glucometer 128 H (74 to 106) mg/dL Lactic Acid (0.4-2.0) Uric Acid (3.5-7.2) mg/dL Calcium 9.0 (8.4-10.2) mg/dL Total Bilirubin 0.30 (0.2-1.3) mg/dL AST 74 H (17-59) U/L ALT 70 H (0-50) U/L Alkaline Phosphatase 343 H (38-126) U/L Serum Total Protein 7.2 (6.3-8.2) g/dL Albumin 3.0 L (3.5-5.0) g/dL Prealbumin 11.58 L (17.6-36.0) mg/dL Procalcitonin (0.030-0.080) ng/mL Urine Color (Yellow) Urine Appearance (Clear) Urine pH (4.6-8.0) Ur Specific [place] (1.005-1.030) Urine Protein (Negative) Urine Glucose (UA) (Negative) mg/dL Urine Ketones (Negative) Urine Blood (Negative) Urine Nitrite (Negative) Urine Bilirubin (Negative) Urine Urobilinogen (0.2) mg/dL Ur Leukocyte Esterase (Negative) U Hyaline Cast (Auto) (0-2) /LPF Urine Microscopic RBC (0-5) /HPF Urine Microscopic WBC (0-5) /HPF Ur Epithelial Cells (None Seen) /HPF Urine Bacteria (None Seen) /HPF Urine Culture Reflexed (NO) Fluid Color (COLORLESS) Fluid Clarity (CLEAR) Fluid WBC (Auto) x10^3u/L Fluid RBC (Auto) x10^6u/L Fld Polynuclear WBCs % % Fl Mononuclear % Auto % Microbiology 03/08/24 12:36 Gram Stain - Final Synovial Fluid 03/08/24 13:09 Urine Culture - Preliminary Urine, Indwelling Catheter GRAM NEGATIVE ID AND SENSITIVITY PENDING Accuchecks Date 03/09/24 Date 03/08/24 Date 03/08/24 Time 07:26 Time 21:00 - Radiology Impressions Radiology Exams & Impressions: Radiology Procedures Category Date Time Status DIA/LIMB PRESSURES BILATERAL [US] Stat Exams 03/08/24 14:45 Completed ARTERIAL BILAT LOWER EXTREMITY [US] Stat Exams 03/08/24 14:34 Completed FLUOROSCOPY UP TO 1 HR Routine Exams 03/09/24 08:47 Ordered FOOT (MINIMUM 3 VIEWS) Urgent Exams 03/08/24 14:33 Completed FOOT (MINIMUM 3 VIEWS) Urgent Exams 03/08/24 14:33 Completed PELVIS (1 OR 2 VIEWS) Stat Exams 03/08/24 16:26 Completed SHOULDER Routine Exams 03/09/24 08:46 Ordered SHOULDER Stat Exams 03/08/24 09:59 Completed UPPER EXTREMITY W/O CONTRAST [CT] Stat Exams 03/08/24 16:47 Completed - Other Procedures and Tests Respiratory Therapy 03/08/24 14:05 Oxygen Nasal Cannula 2 lpm 03/08/24 14:53 Respiratory Therapy Assessment DAILY Assessment/Plan (1) Gangrene of toe of both feet Current Visit: Yes Status: Acute Assessment & Plan: Initial patient examination and evaluation Radiographs reviewed and discussed with patient demonstrating changes consistent with osteolysis/osteomyelitis at minimum to the great toe of the right foot however with gangrenous changes would like to proceed with amputation to prevent the situation of a wet gangrene or chronic non-healing wound. Discussion was held with daughter in regards to treatment options and as his power of bankruptcy attorney decided to proceed with the amputation this will be performed at the same time as the septic shoulder arthroscopy with Dr. Marcial Avendano Procedure planned: Amputation 1st and 3rd digit of the right foot. amputation 2nd digit of the left foot Patient's daughter who is (POA) as well as patient understands all risks complications and benefits of surgical intervention including but not limited to infection, hematoma, seroma, possible delayed healing of skin, non healing of skin, and possible need for further surgical intervention at a later date. Patient is aware that surgery is not a guarantee of success and possible other issues may arise as a result. This may require the need for further surgical intervention at a later date. Plenty of time was allowed for questions to be asked, which were answered, to the patient's and daughters apparent satisfaction. The process of decision making was discussed in depth with the patient and which procedures are to be preformed and why. Post op plan: Weight bearing: NWB Assistive device: Wheel chair Antibiotic intraoperative: Determined by Ortho managing patient infection. Unsure if holding until cultures obtained Antibiotic postoperative: Keflex 500 mg QID DVT prophylaxis: 325 mg PO aspirin daily Will follow up with patient postoperatively and monitor closely. Code(s): I96 - GANGRENE, NOT ELSEWHERE CLASSIFIED (2) Shoulder dislocation Current Visit: No Status: Acute (3) Acute CHF (congestive heart failure) Current Visit: No Status: Acute Code(s): I50.9 - HEART FAILURE, UNSPECIFIED (4) Coronary artery disease Current Visit: No Status: Chronic Code(s): I25.10 - ATHSCL HEART DISEASE OF [place] CORONARY ARTERY W/O ANG PCTRS (5) Peripheral neuropathy Current Visit: No Status: Chronic Qualifiers: Peripheral neuropathy type: polyneuropathy associated with underlying disease Qualified Code(s): G63 - Polyneuropathy in diseases classified elsewhere Code(s): G62.9 - POLYNEUROPATHY, UNSPECIFIED (6) HTN (hypertension) Current Visit: Yes Status: Acute Code(s): I10 - ESSENTIAL (PRIMARY) HYPERTENSION (7) DM (diabetes mellitus) Current Visit: No Status: Acute Qualifiers: Diabetes mellitus type: type 2 Diabetes mellitus detention insulin use: unspecified watermaster insulin use status Diabetes mellitus complication detail: with foot ulcer Code(s): E11.9 - TYPE 2 DIABETES MELLITUS WITHOUT COMPLICATIONS
[2024-03-09] MEDS ORDERED: Epinephrine Preservative Free 1 MG/ML ONE (09:51)
[2024-03-09] MEDS: Toprol-Xl 25MG Tablets PO SCH (09:58)
[2024-03-09] MEDS: Lactated Ringers 1,000 ML IV SCH (09:59)
[2024-03-09] MEDS ORDERED: HONEY TP SCH (10:00)
[2024-03-09] MEDS ORDERED: Xylocaine 1% Vial 30 ML PF IJ ONE (10:11)
[2024-03-09] MEDS ORDERED: Marcaine Mpf 0.5% Vial 30 Ml ONE (10:11)
[2024-03-09] MEDS ORDERED: Zofran 4 MG/2 ML VIAL ONE (10:19)
[2024-03-09] MEDS ORDERED: Decadron 4 MG INJ ONE (10:19)
[2024-03-09] MEDS ORDERED: DIPRIVAN 200 MG/20 ML IV ONE ×2 (10:19→13:16)
[2024-03-09] MEDS ORDERED: ROCURONIUM BROMIDE IV ONE (10:19)
[2024-03-09] MEDS ORDERED: BREVIBLOC 100 MG/10 ML IV ONE (10:36)
[2024-03-09] MEDS ORDERED: Tobramycin 1.2 GM Injection IJ ONE (11:02)
[2024-03-09] MEDS ORDERED: VANCOCIN INJECTION IV ONE (11:02)
[2024-03-09] MEDS ORDERED: SUBLIMAZE 100 MCG/2 ML ONE (11:22)
[2024-03-09] MEDS ORDERED: PITRESSIN 20 UNITS ONE (12:22)
--- NOTE | 2024-03-09 12:31 | PCM.NOTE ---
Date and Time: 03/09/24 1226 Subjective Assessment: Mr. Hermosillo is a 64 year old male with a pmhx of dementia, TIA, CHF, AFIB (on Eliquis), HLD, PVD, DMII, anxiety, GERD, chronic indwelling catheter, and depression (poor historian) who presented to ED from nursing facility with a five day history of progressive swelling to the right shoulder and pain. Patient describes the pain as non-radiating, dull and aching, and "tight." Pain is aggravated with movement. Relieved with pain medications. He is rating pain 4/10 on numerical pain scale during this interview. No trauma reported. In ED patient was reported to have severe LROM to RUE. Right shoulder xray showing new anterior inferior humeral head dislocation with diffuse soft tissue swelling. Surgery was consulted (Dr. Neil) with recommendations for drainage of effusion and reduction. Drainage performed in ED and sent for cultures. Lab findings with normocytic anemia, elevated alk phos and procal. Urine and blood cultures pending. Lactic acid noted as WNL. Plan for IV abx with Vancomycin and Zosyn as well as washout scheduled for tomorrow. In the meantime, patient is placed in sling. Of note, upon exam of BLE Right great toe and third toe with necrosis - left second toe with necrosis, left great toe with ulceration (healing), and left fifth toe with ulcer. Podiatry consulted. 03/09/24: Met with patient and daughter bedside. Patient endorsing pain to right shoulder, otherwise no complaints this morning. Podiatry and ortho documentation reviewed and agree with plan for amputation 1st and 3rd digit of the right foot. amputation 2nd digit of the left foot/ washout right shoulder. Cultures pending. Plan for continued abx. Of note, patient with non-healing sacral wound as well, will have surgery evaluate, may need debridement/wound vac. - Review of Systems Constitutional: No Symptoms Eyes: No Symptoms Ears, Nose, & Throat: No Symptoms Respiratory: No Symptoms Cardiac: No Symptoms Abdominal/Gastrointestinal: No Symptoms Genitourinary Symptoms: No Symptoms Musculoskeletal: Joint Pain (right shoulder ), Joint Swelling (right shoulder) Skin: Skin Lesions (stage II sacral ulcer /left gluteal fold) Neurological: No Symptoms Psychological: No Symptoms Endocrine: No Symptoms Hematologic/Lymphatic: No Symptoms Immunological/Allergic: No Symptoms Objective Exam General Appearance: no apparent distress Neurologic Exam: alert, oriented x 3, cooperative Skin Exam: pale Wound Assessment: Skin/Wound Assessment Wound/Incision Assessment Start: 03/08/24 16:17 Text: Status: Active Freq: Q6H Protocol: Document 03/09/24 02:00 LB (Rec: 03/09/24 02:44 LB [id number]) Wound/Incision Assessment Left Foot Wound Assessment Shift Assessment Wound Type necrosis Wound Stage Unstageable General Appearance Open to air,Blackened Comment necrosis to second toe, small open area to great toe, and blackened area to third and fourth toe Buttock Wound Assessment Shift Assessment Wound Type Pressure Ulcer Wound Stage Stage II Drainage Amount None Surrounding Tissue [place] Comment left gluteal fold, barrier cream applied Sacrum Wound Assessment Shift Assessment Wound Type Pressure Ulcer Wound Stage Stage II Drainage Amount None General Appearance Open to air Surrounding Tissue [place] Comment barrier cream applied Right Foot Wound Assessment Shift Assessment Wound Type necrosis 2 toes Wound Stage Unstageable Dressing Status Dry & Intact Drainage Amount None Drainage Odor None/Absent General Appearance Open to air,Blackened Surrounding Tissue [place] Comment great toe and third toe black, also small stage 2 to interior base of great toe, black spot on tip of second toe,callous to heel Wound Photo Photo Taken Yes Comment: in chart Eye Exam: PERRL Ears, Nose, Throat Exam: normal ENT inspection Neck Exam: normal inspection Respiratory Exam: normal breath sounds, lungs clear Cardiovascular Exam: regular rate/rhythm, normal heart sounds Gastrointestinal/Abdomen Exam: soft, normal bowel sounds, distention Extremity Exam: other (digits 1 and 3 of the right foot and 2 of the left foot with gangrenous changes to the proximal interphalangeal joints) Back Exam: normal inspection Male Genitalia Exam: deferred Rectal Exam: deferred Objective Data Vital Signs: Vital Signs - 24 hr Temp Pulse Resp BP BP Pulse Ox 03/09/24 10:17 104 H 16 108/65 99 03/09/24 09:47 104 H 16 108/65 99 03/09/24 07:10 98.0 F 91 H 16 103/62 95 03/09/24 07:05 104 H 16 96 03/09/24 04:00 98.2 F 95 H 17 147/86 94 L 03/09/24 00:00 98.4 F 108 H 18 111/73 95 03/08/24 20:13 98.3 F 112 H 18 121/81 97 03/08/24 19:40 75 16 96 03/08/24 16:45 98.2 F 113 H 18 123/86 93 L 03/08/24 16:38 96 03/08/24 14:54 100 H 18 99 03/08/24 14:33 97.3 F 102 H 24 94 L 03/08/24 14:05 97.3 F 102 H 24 144/91 94 L 03/08/24 13:00 90 21 102/76 100 03/08/24 12:55 96 H 19 99/76 100 03/08/24 12:51 103 H 14 105/63 97 03/08/24 12:45 103 H 20 114/84 98 03/08/24 12:40 103 H 18 118/80 96 03/08/24 12:35 106 H 19 102/82 96 03/08/24 12:30 95 H 21 106/86 95 Pain Assessment - Last Documented Pain Intensity 8 Pain Scale Used 0-10 Pain Scale Intake and Output: Intake & Output 03/07/24 03/08/24 03/09/24 03/10/24 11:59 11:59 11:59 11:59 Intake Total 240 Output Total 1100 Balance -860 Weight 102.8 kg 103.8 kg Lab Results: Lab Results-Last 24 Hours 03/08/24 03/08/24 03/08/24 Range/Units 12:36 12:36 13:09 Specimen Type SYNOVIAL WBC (4.0-10.5) x10^3/uL RBC (4.1-5.6) x10^6/uL Hgb (12.5-18.0) g/dL Hct (42-50) % MCV (78-100) fL MCH (26-32) pg MCHC (32-36) g/dL RDW (11.5-14.0) % Plt Count (150-450) x10^3/uL MPV (7.5-11.0) fL Gran % (36.0-66.0) % Immature Gran % (Auto) (0.00-0.4) % Nucleat RBC Rel Count (0.00-0.1) % Eos # (Auto) (0-0.5) x10^3/uL Immature Gran # (Auto) (0.00-0.03) x10^3u/L Absolute Lymphs (auto) (1.0-4.6) x10^3/uL Absolute Monos (auto) (0.0-1.3) x10^3/uL Absolute Nucleated RBC (0.00-0.01) x10^3u/L Lymphocytes % (24.0-44.0) % Monocytes % (0.0-12.0) % Eosinophils % (0.00-5.0) % Basophils % (0.0-0.4) % Absolute Granulocytes (1.4-6.9) x10^3/uL Basophils # (0-0.4) x10^3/uL PT (9.4-12.5) SECONDS INR (0.8-3.0) APTT (25.1-36.5) SECONDS Sodium (135-145) mmol/L Potassium (3.5-5.1) mmol/L Chloride (98-107) mmol/L Carbon Dioxide (22-30) mmol/L Anion Gap (5-15) MEQ/L BUN (9-20) mg/dL Creatinine (0.66-1.25) mg/dL Estimated GFR ML/MIN Glucose (74-106) mg/dL POC Glucometer (74 to 106) mg/dL Calcium (8.4-10.2) mg/dL Total Bilirubin (0.2-1.3) mg/dL AST (17-59) U/L ALT (0-50) U/L Alkaline Phosphatase (38-126) U/L NT-Pro-B Natriuret Pep (<300) pg/mL Serum Total Protein (6.3-8.2) g/dL Albumin (3.5-5.0) g/dL Prealbumin (17.6-36.0) mg/dL Urine Color Yellow (Yellow) Urine Appearance Cloudy A (Clear) Urine pH 5.5 (4.6-8.0) Ur Specific [place] 1.020 (1.005-1.030) Urine Protein 100 A (Negative) Urine Glucose (UA) Negative (Negative) mg/dL Urine Ketones Negative (Negative) Urine Blood Trace (Negative) Urine Nitrite Positive A (Negative) Urine Bilirubin Negative (Negative) Urine Urobilinogen 1.0 A (0.2) mg/dL Ur Leukocyte Esterase Large A (Negative) U Hyaline Cast (Auto) None Seen (0-2) /LPF Urine Microscopic RBC 0-2 (0-5) /HPF Urine Microscopic WBC 51-100 A (0-5) /HPF Ur Epithelial Cells Rare (None Seen) /HPF Urine Bacteria Few A (None Seen) /HPF Urine Culture Reflexed ORDERED SEPARATELY (NO) Fluid Color XANTHROCHORMIC A (COLORLESS) Fluid Clarity CLOUDY A (CLEAR) Fluid WBC (Auto) 107.638 x10^3u/L Fluid RBC (Auto) 0.056 x10^6u/L Fld Polynuclear WBCs % 94.900 % Fl Mononuclear % Auto 5.100 % Fluid Crystal ID Comment (None seen) 03/08/24 03/08/24 03/08/24 Range/Units 15:05 16:40 20:51 Specimen Type WBC (4.0-10.5) x10^3/uL RBC (4.1-5.6) x10^6/uL Hgb (12.5-18.0) g/dL Hct (42-50) % MCV (78-100) fL MCH (26-32) pg MCHC (32-36) g/dL RDW (11.5-14.0) % Plt Count (150-450) x10^3/uL MPV (7.5-11.0) fL Gran % (36.0-66.0) % Immature Gran % (Auto) (0.00-0.4) % Nucleat RBC Rel Count (0.00-0.1) % Eos # (Auto) (0-0.5) x10^3/uL Immature Gran # (Auto) (0.00-0.03) x10^3u/L Absolute Lymphs (auto) (1.0-4.6) x10^3/uL Absolute Monos (auto) (0.0-1.3) x10^3/uL Absolute Nucleated RBC (0.00-0.01) x10^3u/L Lymphocytes % (24.0-44.0) % Monocytes % (0.0-12.0) % Eosinophils % (0.00-5.0) % Basophils % (0.0-0.4) % Absolute Granulocytes (1.4-6.9) x10^3/uL Basophils # (0-0.4) x10^3/uL PT 10.9 (9.4-12.5) SECONDS INR 1.00 (0.8-3.0) APTT 32.1 (25.1-36.5) SECONDS Sodium (135-145) mmol/L Potassium (3.5-5.1) mmol/L Chloride (98-107) mmol/L Carbon Dioxide (22-30) mmol/L Anion Gap (5-15) MEQ/L BUN (9-20) mg/dL Creatinine (0.66-1.25) mg/dL Estimated GFR ML/MIN Glucose (74-106) mg/dL POC Glucometer 114 H 203 H (74 to 106) mg/dL Calcium (8.4-10.2) mg/dL Total Bilirubin (0.2-1.3) mg/dL AST (17-59) U/L ALT (0-50) U/L Alkaline Phosphatase (38-126) U/L NT-Pro-B Natriuret Pep (<300) pg/mL Serum Total Protein (6.3-8.2) g/dL Albumin (3.5-5.0) g/dL Prealbumin (17.6-36.0) mg/dL Urine Color (Yellow) Urine Appearance (Clear) Urine pH (4.6-8.0) Ur Specific [place] (1.005-1.030) Urine Protein (Negative) Urine Glucose (UA) (Negative) mg/dL Urine Ketones (Negative) Urine Blood (Negative) Urine Nitrite (Negative) Urine Bilirubin (Negative) Urine Urobilinogen (0.2) mg/dL Ur Leukocyte Esterase (Negative) U Hyaline Cast (Auto) (0-2) /LPF Urine Microscopic RBC (0-5) /HPF Urine Microscopic WBC (0-5) /HPF Ur Epithelial Cells (None Seen) /HPF Urine Bacteria (None Seen) /HPF Urine Culture Reflexed (NO) Fluid Color (COLORLESS) Fluid Clarity (CLEAR) Fluid WBC (Auto) x10^3u/L Fluid RBC (Auto) x10^6u/L Fld Polynuclear WBCs % % Fl Mononuclear % Auto % Fluid Crystal ID (None seen) 05/31/24 05/31/24 05/31/24 Range/Units 04:20 04:20 07:24 Specimen Type WBC 7.5 (4.0-10.5) x10^3/uL RBC 4.27 (4.1-5.6) x10^6/uL Hgb 11.2 L (12.5-18.0) g/dL Hct 35.9 L (42-50) % MCV 84.1 (78-100) fL MCH 26.2 (26-32) pg MCHC 31.2 L (32-36) g/dL RDW 14.2 H (11.5-14.0) % Plt Count 516 H (150-450) x10^3/uL MPV 9.6 (7.5-11.0) fL Gran % 55.8 (36.0-66.0) % Immature Gran % (Auto) 0.4 (0.00-0.4) % Nucleat RBC Rel Count 0.0 (0.00-0.1) % Eos # (Auto) 0.43 (0-0.5) x10^3/uL Immature Gran # (Auto) 0.03 (0.00-0.03) x10^3u/L Absolute Lymphs (auto) 2.08 (1.0-4.6) x10^3/uL Absolute Monos (auto) 0.61 (0.0-1.3) x10^3/uL Absolute Nucleated RBC 0.00 (0.00-0.01) x10^3u/L Lymphocytes % 27.7 (24.0-44.0) % Monocytes % 8.1 (0.0-12.0) % Eosinophils % 5.7 H (0.00-5.0) % Basophils % 2.3 (0.0-0.4) % Absolute Granulocytes 4.20 (1.4-6.9) x10^3/uL Basophils # 0.17 (0-0.4) x10^3/uL PT (9.4-12.5) SECONDS INR (0.8-3.0) APTT (25.1-36.5) SECONDS Sodium 138 (135-145) mmol/L Potassium 3.6 (3.5-5.1) mmol/L Chloride 104 (98-107) mmol/L Carbon Dioxide 29 (22-30) mmol/L Anion Gap 8.9 (5-15) MEQ/L BUN 21 H (9-20) mg/dL Creatinine 0.96 (0.66-1.25) mg/dL Estimated GFR 89.4 ML/MIN Glucose 123 H (74-106) mg/dL POC Glucometer 128 H (74 to 106) mg/dL Calcium 9.0 (8.4-10.2) mg/dL Total Bilirubin 0.30 (0.2-1.3) mg/dL AST 74 H (17-59) U/L ALT 70 H (0-50) U/L Alkaline Phosphatase 343 H (38-126) U/L NT-Pro-B Natriuret Pep (<300) pg/mL Serum Total Protein 7.2 (6.3-8.2) g/dL Albumin 3.0 L (3.5-5.0) g/dL Prealbumin 11.58 L (17.6-36.0) mg/dL Urine Color (Yellow) Urine Appearance (Clear) Urine pH (4.6-8.0) Ur Specific [place] (1.005-1.030) Urine Protein (Negative) Urine Glucose (UA) (Negative) mg/dL Urine Ketones (Negative) Urine Blood (Negative) Urine Nitrite (Negative) Urine Bilirubin (Negative) Urine Urobilinogen (0.2) mg/dL Ur Leukocyte Esterase (Negative) U Hyaline Cast (Auto) (0-2) /LPF Urine Microscopic RBC (0-5) /HPF Urine Microscopic WBC (0-5) /HPF Ur Epithelial Cells (None Seen) /HPF Urine Bacteria (None Seen) /HPF Urine Culture Reflexed (NO) Fluid Color (COLORLESS) Fluid Clarity (CLEAR) Fluid WBC (Auto) x10^3u/L Fluid RBC (Auto) x10^6u/L Fld Polynuclear WBCs % % Fl Mononuclear % Auto % Fluid Crystal ID (None seen) 03/09/24 Range/Units 09:47 Specimen Type WBC (4.0-10.5) x10^3/uL RBC (4.1-5.6) x10^6/uL Hgb (12.5-18.0) g/dL Hct (42-50) % MCV (78-100) fL MCH (26-32) pg MCHC (32-36) g/dL RDW (11.5-14.0) % Plt Count (150-450) x10^3/uL MPV (7.5-11.0) fL Gran % (36.0-66.0) % Immature Gran % (Auto) (0.00-0.4) % Nucleat RBC Rel Count (0.00-0.1) % Eos # (Auto) (0-0.5) x10^3/uL Immature Gran # (Auto) (0.00-0.03) x10^3u/L Absolute Lymphs (auto) (1.0-4.6) x10^3/uL Absolute Monos (auto) (0.0-1.3) x10^3/uL Absolute Nucleated RBC (0.00-0.01) x10^3u/L Lymphocytes % (24.0-44.0) % Monocytes % (0.0-12.0) % Eosinophils % (0.00-5.0) % Basophils % (0.0-0.4) % Absolute Granulocytes (1.4-6.9) x10^3/uL Basophils # (0-0.4) x10^3/uL PT (9.4-12.5) SECONDS INR (0.8-3.0) APTT (25.1-36.5) SECONDS Sodium (135-145) mmol/L Potassium (3.5-5.1) mmol/L Chloride (98-107) mmol/L Carbon Dioxide (22-30) mmol/L Anion Gap (5-15) MEQ/L BUN (9-20) mg/dL Creatinine (0.66-1.25) mg/dL Estimated GFR ML/MIN Glucose (74-106) mg/dL POC Glucometer (74 to 106) mg/dL Calcium (8.4-10.2) mg/dL Total Bilirubin (0.2-1.3) mg/dL AST (17-59) U/L ALT (0-50) U/L Alkaline Phosphatase (38-126) U/L NT-Pro-B Natriuret Pep 2430 (<300) pg/mL Serum Total Protein (6.3-8.2) g/dL Albumin (3.5-5.0) g/dL Prealbumin (17.6-36.0) mg/dL Urine Color (Yellow) Urine Appearance (Clear) Urine pH (4.6-8.0) Ur Specific [place] (1.005-1.030) Urine Protein (Negative) Urine Glucose (UA) (Negative) mg/dL Urine Ketones (Negative) Urine Blood (Negative) Urine Nitrite (Negative) Urine Bilirubin (Negative) Urine Urobilinogen (0.2) mg/dL Ur Leukocyte Esterase (Negative) U Hyaline Cast (Auto) (0-2) /LPF Urine Microscopic RBC (0-5) /HPF Urine Microscopic WBC (0-5) /HPF Ur Epithelial Cells (None Seen) /HPF Urine Bacteria (None Seen) /HPF Urine Culture Reflexed (NO) Fluid Color (COLORLESS) Fluid Clarity (CLEAR) Fluid WBC (Auto) x10^3u/L Fluid RBC (Auto) x10^6u/L Fld Polynuclear WBCs % % Fl Mononuclear % Auto % Fluid Crystal ID (None seen) Radiology Exams: Radiology Procedures Category Date Time Status DIA/LIMB PRESSURES BILATERAL [US] Stat Exams 03/08/24 14:45 Completed ARTERIAL BILAT LOWER EXTREMITY [US] Stat Exams 03/08/24 14:34 Completed FOOT (MINIMUM 3 VIEWS) Urgent Exams 03/08/24 14:33 Completed FOOT (MINIMUM 3 VIEWS) Urgent Exams 03/08/24 14:33 Completed PELVIS (1 OR 2 VIEWS) Stat Exams 03/08/24 16:26 Completed SHOULDER Stat Exams 03/08/24 09:59 Completed UPPER EXTREMITY W/O CONTRAST [CT] Stat Exams 03/08/24 16:47 Completed Multi-Disciplinary Progress Notes: Multi-Disciplinary Progress Notes 03/09/24 11:21 Case Management Note by Asya Corea S/W DAUGHTER BHNAU- SHE PLANS FOR PATIENT TO RETURN TO [place] AT HOME OF ME. Initialized on 03/09/24 11:21 - END OF NOTE 03/09/24 08:29 Occupational Therapy Note by Esthela Mejia OCCUPATIONAL THERAPY EVALUATION: OT REVIEWED CHART PATIENT WAS ADMITTED DUE TO RIGHT SHOULDER PAIN AND SIGNIFICANT SWELLING. HE WAS DIAGNOSED WITH SEPTIC SHOULDER AND NOTED WITH NECROTIC TOES ON RIGHT AND LEFT SIDE. OT SPOKE WITH RN, RANDAL, THIS MORNING WHO STATES THAT HE IS TO UNDERGO SURGERY AT 8:45AM TODAY WITH DR. DIANA AND DR. NEIL. OT REQUESTS WEIGHTBEARING AND SHOULDER PRECAUTIONS FOLLOWING SURGERY. Initialized on 03/09/24 08:29 - END OF NOTE 03/08/24 14:47 Case Management Note by Asya Corea/Charlene RODRIGUEZ AT [facility]- PATIENT THERE UNDER HIS MEDICAID- NOTHING NEEDED TO RETURN TO FACILITY. PATIENT CAN RETURN TO FACILITY WHEN MEDICALLY READY Initialized on 03/08/24 14:47 - END OF NOTE Assessment/Plan (1) Septic joint of right shoulder region Current Visit: Yes Status: Acute Assessment & Plan: -Ortho consulted note reviewed,aspiration performed - fluid was sent to the lab for evaluation to include cultures, gram stain, cell count and crystal evaluation - plan for arthroscopic lavage 03/09/24 -Hold Eliquis -Pain control -Vanc/Zosyn -follow cultures -blood/urine/wound cultures pending 03/09: - ortho note reviewed, agree with plan for washout right shoulder -continue vanc/zosyn - cultures pending Code(s): M00.9 - PYOGENIC ARTHRITIS, UNSPECIFIED (2) Gangrene of toe of both feet Current Visit: Yes Status: Acute Assessment & Plan: -Podiatry consulted, appreciate recs -arterial doppler pending -XRay bilateral feet 03/09: -Podiatry note reviewed, agree with plan for amputation 1st and 3rd digit of the right foot. 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 2) MILD ASYMMETRIC LEFT VENTRICULAR HYPERTROPHY INVOLVING THE LEFT VENTRICULAR SEPTUM. 3) MILD LEFT VENTRICULAR DILATATION. 4) SEVERE LEFT ATRIAL DILATATION. 5) MILD AORTIC REGURGITATION. 6) MODERATE TO SEVERE MITRAL REGURGITATION. 7) MODERATE TRICUSPID REGURGITATION. 8) MODERATE PULMONARY HYPERTENSION. 9) MODERATE PULMONIC REGURGITATION. -Does not appear to be in exacerbation -continue home medications Code(s): I50.9 - HEART FAILURE, UNSPECIFIED (5) Atrial fibrillation Current Visit: No Status: Acute Qualifiers: Atrial fibrillation type: paroxysmal Qualified Code(s): I48.0 - Paroxysmal atrial fibrillation Assessment & Plan: -tele -Eliquis on hold for procedure scheduled for 03/09/24 -continue metoprolol #Sacral Ulcer, stage II -surgery consult - may need wound vac VTE: Eliquis - on hold PPI: protonix Dispo: pending surgical consult Code status: Full Code Code(s): I48.91 - UNSPECIFIED ATRIAL FIBRILLATION (6) UTI (urinary tract infection) Current Visit: Yes Status: Acute Assessment & Plan: -UA suspicious for UTI, patient with indwelling catheter, could be colonization, IV abx with vanc/zosyn - follow cultures Code(s): N39.0 - URINARY TRACT INFECTION, SITE NOT SPECIFIED (7) HTN (hypertension) Current Visit: Yes Status: Acute Assessment & Plan: -stable, continue home meds - monitor closely Code(s): I10 - ESSENTIAL (PRIMARY) HYPERTENSION Code(s): M00.9 - PYOGENIC ARTHRITIS, UNSPECIFIED (2) Gangrene of toe of both feet Current Visit: Yes Status: Acute Code(s): I96 - GANGRENE, NOT ELSEWHERE CLASSIFIED (3) DM (diabetes mellitus) Current Visit: No Status: Acute Qualifiers: Diabetes mellitus type: type 2 Diabetes mellitus snf insulin use: unspecified snf insulin use status Diabetes mellitus complication detail: with foot ulcer Code(s): E11.9 - TYPE 2 DIABETES MELLITUS WITHOUT COMPLICATIONS (4) CHF (congestive heart failure) Current Visit: Yes Status: Acute Code(s): I50.9 - HEART FAILURE, UNSPECIFIED (5) Atrial fibrillation Current Visit: No Status: Acute Qualifiers: Atrial fibrillation type: paroxysmal Qualified Code(s): I48.0 - Paroxysmal atrial fibrillation Code(s): I48.91 - UNSPECIFIED ATRIAL FIBRILLATION (6) UTI (urinary tract infection) Current Visit: Yes Status: Acute Code(s): N39.0 - URINARY TRACT INFECTION, SITE NOT SPECIFIED (7) HTN (hypertension) Current Visit: Yes Status: Acute Code(s): I10 - ESSENTIAL (PRIMARY) HYPERTENSION
[2024-03-09] MEDS ORDERED: BRIDION 200MG/2ML IV ONE (13:02)
--- NOTE | 2024-03-09 13:44 | OP ---
SURGERY DATE/TIME: 03/09/2024 1028 PREOPERATIVE DIAGNOSIS: Septic arthritis right shoulder. POSTOPERATIVE DIAGNOSIS: Septic arthritis right shoulder. PROCEDURE: Right shoulder arthroscopy with extensive debridement. SURGEON: Marcial Avendano M.D. HISTORY: This patient was admitted yesterday to [facility] after being evaluated in the emergency room for complaint of a painful, swollen right shoulder. His white cell count was mildly elevated and he was afebrile but he had developed progressive swelling in the shoulder over one to two weeks. Radiograph had been obtained several days before that were thought to be normal but the ER x-rays were interpreted as a dislocation prompting an orthopedic referral. An aspirate was obtained showing 20 cc of thick turbid fluid. Fluid was sent for analysis and had a white blood cell count over 100,000. Gram stain was positive for gram-positive cocci and gram-positive rods. Cultures are still pending but on the basis of this preliminary diagnosis we suspected septic shoulder and recommended arthroscopy and debridement procedure. DESCRIPTION OF PROCEDURE: The patient was taken to operating room and placed under general anesthesia and then positioned in a beach chair position. The head was secured and we proceeded to prep and drape the right shoulder. Bony landmarks were traced on the skin. We identified the posterior portal site creating an incision. We advanced the arthroscope into the joint. A small volume of fluid was released at that time. We inserted the arthroscope and began the evaluation. The fluid inside the shoulder was quite turbid making visualization difficult. There were loose bodies and significant synovitis. We introduced a shaver through a combination of a lateral portal and anterior portal. We then proceeded to debride the loose bodies from the joint, debrided the labrum, debrided remnants of the rotator cuff, and debrided the subacromial bursa. We evaluated the inferior joint pouch and found no large loose bodies in that area. We used 6 liters of normal saline solution but in the final 3,000 cc we had antibiotics added to the fluid. A large bore Hemovac drain was inserted through the anterior portal and was directed down into the inferior portion of the joint this was secured at the skin level with a suture this was connected to a Hemovac and dressings were applied. The patient tolerated the procedure well.
--- NOTE | 2024-03-09 15:23 | XRAY ---
Indication: Status post amputation. Comparison: None 3 portable views right foot demonstrates total amputation 1st phalanx and mid to distal 3rd phalanx with presumed postsurgical soft tissue swelling/emphysema. Incidental tiny posterior/plantar heel spurs. No other bony, articular, or soft tissue abnormalities.
--- NOTE | 2024-03-09 15:23 | XRAY ---
Indication: Status post amputation. Comparison: None 3 portable views left foot demonstrates total 2nd toe amputation with presumed postsurgical soft tissue swelling/emphysema. No other bony, articular, or soft tissue abnormalities.
[2024-03-09] MEDS: Cymbalta 30 MG Capsule PO SCH (15:27)
[2024-03-09] MEDS: Klor Con PO SCH (15:28)
[2024-03-09] MEDS: NORVASC 5 MG PO SCH (15:28)
[2024-03-09] MEDS: FEOSOL 325 MG PO SCH (15:28)
[2024-03-09] MEDS: DEMADEX 20 MG PO SCH (15:28)
[2024-03-09] MEDS: VITAMIN B-1 100 MG PO SCH (15:29)
[2024-03-09] MEDS: VANCOMYCIN 1.25 GM/250 ML BAG 1.25 GM/250 ML PIGGYBACK IV SCH (19:23)
[2024-03-09] MEDS: PHARMACY RENAL DOSING MC ONE (21:44)
[2024-03-09] MEDS: TROUGH DRUG LEVELS IJ ONE (21:45)
[2024-03-10] MEDS: MORPHINE SULFATE 2 MG INJ IV PRN (03:44)
[2024-03-10 06:07] LABS: Absolute Neutrophil Ct (ANC) 5.81 x10^3/uL (1.4-6.9); BASOPHIL % 1.4 % (0.0-0.4); Basophil (Absolute #) 0.13 x10^3/uL (0-0.4); Eosinophil (Absolute #) 0.47 x10^3/uL (0-0.5); Hematocrit 33.5 % (42-50); Hemoglobin 10.4 g/dL (12.5-18.0); IMMATURE GRAN # 0.04 x10^3u/L (0.00-0.03); IMMATURE GRAN % 0.4 % (0.00-0.4); Lymphocyte (Absolute #) 2.32 x10^3/uL (1.0-4.6); Lymphocytes % 24.7 % (24.0-44.0); Mean Cell Volume 83.1 fL (78-100); Mean Corpuscular Hemoglobin 25.8 pg (26-32); Mean Platelet Volume 9.7 fL (7.5-11.0); Monocyte (Absolute #) 0.64 x10^3/uL (0.0-1.3); Monocytes % 6.8 % (0.0-12.0); Neutrophil % 61.7 % (36.0-66.0); Platelet Count 557 x10^3/uL (150-450); Red Blood Count 4.03 x10^6/uL (4.1-5.6); Red Cell Distribution Width 14.5 % (11.5-14.0); White Blood Count 9.4 x10^3/uL (4.0-10.5)
[2024-03-10 06:22] LABS: ANION GAP 10.2 MEQ/L (5-15); BILIRUBIN,TOTAL 0.3 mg/dL (0.2-1.3); Calcium 8.8 mg/dL (8.4-10.2); Creatinine 1 1.22 mg/dL (0.66-1.25); Potassium 3.7 mmol/L (3.5-5.1); Total Protein 7.1 g/dL (6.3-8.2)
--- NOTE | 2024-03-10 08:01 | PCM.NOTE ---
Date and Time: 03/10/24 08 Subjective Assessment: Mr. Hermosillo is a 64 year old male with a pmhx of dementia, TIA, CHF, AFIB (on Eliquis), HLD, PVD, DMII, anxiety, GERD, chronic indwelling catheter, and depression (poor historian) who presented to ED from nursing facility with a five day history of progressive swelling to the right shoulder and pain. Patient describes the pain as non-radiating, dull and aching, and "tight." Pain is aggravated with movement. Relieved with pain medications. He is rating pain 4/10 on numerical pain scale during this interview. No trauma reported. In ED patient was reported to have severe LROM to RUE. Right shoulder xray showing new anterior inferior humeral head dislocation with diffuse soft tissue swelling. Surgery was consulted (Dr. Neil) with recommendations for drainage of effusion and reduction. Drainage performed in ED and sent for cultures. Lab findings with normocytic anemia, elevated alk phos and procal. Urine and blood cultures pending. Lactic acid noted as WNL. Plan for IV abx with Vancomycin and Zosyn as well as washout scheduled for tomorrow. In the meantime, patient is placed in sling. Of note, upon exam of BLE Right great toe and third toe with necrosis - left second toe with necrosis, left great toe with ulceration (healing), and left fifth toe with ulcer. Podiatry consulted. 03/09/24: Met with patient and daughter bedside. Patient endorsing pain to right shoulder, otherwise no complaints this morning. Podiatry and ortho documentation reviewed and agree with plan for amputation 1st and 3rd digit of the right foot. amputation 2nd digit of the left foot/ washout right shoulder. Cultures pending. Plan for continued abx. Of note, patient with non-healing sacral wound as well, will have surgery evaluate, may need debridement/wound vac. 03/10/24: Met with patient bedside. Endorses pain in right shoulder and bilateral feet but improved, rating at 4/10 on numerical pain scale. Discussed case with podiatry and ortho (Dr. Cuevas), plan for continuation of IV abx, will follow culture. Most likely will stay through the weekend, possible d/c Tuesday. Surgery consulted for sacral wound, no need for intervention at this time. Denies fever,cough, sob, cp, abdominal pain, BABB, dizziness, N/V/D. - Review of Systems Constitutional: No Symptoms Eyes: No Symptoms Ears, Nose, & Throat: No Symptoms Respiratory: No Symptoms Cardiac: No Symptoms Abdominal/Gastrointestinal: No Symptoms Genitourinary Symptoms: No Symptoms, Other (indwelling cath) Skin: Other (see wound assessment BLE wrapped in surgical dressing, Right should with surgical dressing(remove POD#2) with drain) Neurological: No Symptoms Psychological: No Symptoms Endocrine: No Symptoms Hematologic/Lymphatic: No Symptoms Immunological/Allergic: No Symptoms Objective Exam General Appearance: no apparent distress Neurologic Exam: alert, oriented x 3, cooperative Skin Exam: normal color Wound Assessment: Skin/Wound Assessment Wound/Incision Assessment Start: 03/08/24 16:17 Text: Status: Active Freq: Q6H Protocol: Document 03/10/24 02:00 MH (Rec: 03/10/24 02:25 [id number]) Wound/Incision Assessment Right Toe Wound Assessment Shift Assessment Wound Type Amputation Dressing Status Dry & Intact Drainage Amount None Comment Digit 1 & 3, Dressing in place per Dr. Sandhu, CHEO. Left Toe Wound Assessment Shift Assessment Wound Type Amputation Dressing Status Dry & Intact Drainage Amount None Comment Digit 2, Dressing in place per CHEO Min. Buttock Wound Assessment Shift Assessment Wound Type Pressure Ulcer Wound Stage Stage II Drainage Amount None General Appearance Open to air Surrounding Tissue [place] Comment left gluteal fold, barrier cream applied. Remains true Sacrum Wound Assessment Shift Assessment Wound Type Pressure Ulcer Wound Stage Stage II Drainage Amount None General Appearance Open to air Surrounding Tissue [place] Comment barrier cream applied. Remains true Wound Photo Photo Taken Yes Comment: in chart Eye Exam: PERRL Ears, Nose, Throat Exam: normal ENT inspection Neck Exam: normal inspection Respiratory Exam: normal breath sounds, lungs clear Cardiovascular Exam: regular rate/rhythm, normal heart sounds Gastrointestinal/Abdomen Exam: soft, normal bowel sounds Extremity Exam: other (see wound assessment BLE wrapped in surgical dressing, Right should with surgical dressing(remove POD#2) with drain) Back Exam: normal inspection Male Genitalia Exam: deferred Rectal Exam: deferred Objective Data Vital Signs: Vital Signs - 24 hr Temp Pulse Resp BP Pulse Ox 03/10/24 07:52 98.3 F 110 H 18 122/80 95 03/10/24 07:13 92 H 18 96 03/10/24 04:20 97.9 F 92 H 18 131/95 96 03/09/24 23:50 98.7 F 98 H 20 135/81 97 03/09/24 20:00 98.3 F 103 H 18 91/61 98 03/09/24 19:19 111 H 18 94 L 03/09/24 16:14 98.0 F 107 H 16 114/80 100 03/09/24 13:00 98.0 F 107 H 16 114/80 100 03/09/24 10:17 104 H 16 108/65 99 03/09/24 09:47 104 H 16 108/65 99 Pain Assessment - Last Documented Pain Intensity 3 Pain Scale Used 0-10 Pain Scale Intake and Output: Intake & Output 03/07/24 03/08/24 03/09/24 03/10/24 11:59 11:59 11:59 11:59 Intake Total 240 2050 Output Total 1100 1200 Balance -860 850 Weight 102.8 kg 103.8 kg 103.8 kg Lab Results: Lab Results-Last 24 Hours 03/08/24 03/09/24 03/09/24 Range/Units 12:36 09:47 14:23 WBC (4.0-10.5) x10^3/uL RBC (4.1-5.6) x10^6/uL Hgb (12.5-18.0) g/dL Hct (42-50) % MCV (78-100) fL MCH (26-32) pg MCHC (32-36) g/dL RDW (11.5-14.0) % Plt Count (150-450) x10^3/uL MPV (7.5-11.0) fL Gran % (36.0-66.0) % Immature Gran % (Auto) (0.00-0.4) % Nucleat RBC Rel Count (0.00-0.1) % Eos # (Auto) (0-0.5) x10^3/uL Immature Gran # (Auto) (0.00-0.03) x10^3u/L Absolute Lymphs (auto) (1.0-4.6) x10^3/uL Absolute Monos (auto) (0.0-1.3) x10^3/uL Absolute Nucleated RBC (0.00-0.01) x10^3u/L Lymphocytes % (24.0-44.0) % Monocytes % (0.0-12.0) % Eosinophils % (0.00-5.0) % Basophils % (0.0-0.4) % Absolute Granulocytes (1.4-6.9) x10^3/uL Basophils # (0-0.4) x10^3/uL Sodium (135-145) mmol/L Potassium (3.5-5.1) mmol/L Chloride (98-107) mmol/L Carbon Dioxide (22-30) mmol/L Anion Gap (5-15) MEQ/L BUN (9-20) mg/dL Creatinine (0.66-1.25) mg/dL Estimated GFR ML/MIN Glucose (74-106) mg/dL POC Glucometer 126 H (74 to 106) mg/dL Calcium (8.4-10.2) mg/dL Total Bilirubin (0.2-1.3) mg/dL AST (17-59) U/L ALT (0-50) U/L Alkaline Phosphatase (38-126) U/L NT-Pro-B Natriuret Pep 2430 (<300) pg/mL Serum Total Protein (6.3-8.2) g/dL Albumin (3.5-5.0) g/dL Fluid Crystal ID Comment (None seen) Vancomycin Trough (10-20) ug/mL 03/09/24 03/09/24 03/09/24 Range/Units 14:45 16:28 21:51 WBC (4.0-10.5) x10^3/uL RBC (4.1-5.6) x10^6/uL Hgb (12.5-18.0) g/dL Hct (42-50) % MCV (78-100) fL MCH (26-32) pg MCHC (32-36) g/dL RDW (11.5-14.0) % Plt Count (150-450) x10^3/uL MPV (7.5-11.0) fL Gran % (36.0-66.0) % Immature Gran % (Auto) (0.00-0.4) % Nucleat RBC Rel Count (0.00-0.1) % Eos # (Auto) (0-0.5) x10^3/uL Immature Gran # (Auto) (0.00-0.03) x10^3u/L Absolute Lymphs (auto) (1.0-4.6) x10^3/uL Absolute Monos (auto) (0.0-1.3) x10^3/uL Absolute Nucleated RBC (0.00-0.01) x10^3u/L Lymphocytes % (24.0-44.0) % Monocytes % (0.0-12.0) % Eosinophils % (0.00-5.0) % Basophils % (0.0-0.4) % Absolute Granulocytes (1.4-6.9) x10^3/uL Basophils # (0-0.4) x10^3/uL Sodium (135-145) mmol/L Potassium (3.5-5.1) mmol/L Chloride (98-107) mmol/L Carbon Dioxide (22-30) mmol/L Anion Gap (5-15) MEQ/L BUN (9-20) mg/dL Creatinine (0.66-1.25) mg/dL Estimated GFR ML/MIN Glucose (74-106) mg/dL POC Glucometer 108 H 140 H (74 to 106) mg/dL Calcium (8.4-10.2) mg/dL Total Bilirubin (0.2-1.3) mg/dL AST (17-59) U/L ALT (0-50) U/L Alkaline Phosphatase (38-126) U/L NT-Pro-B Natriuret Pep (<300) pg/mL Serum Total Protein (6.3-8.2) g/dL Albumin (3.5-5.0) g/dL Fluid Crystal ID (None seen) Vancomycin Trough 18.91 (10-20) ug/mL 03/10/24 03/10/24 03/10/24 Range/Units 05:32 05:32 07:39 WBC 9.4 (4.0-10.5) x10^3/uL RBC 4.03 L (4.1-5.6) x10^6/uL Hgb 10.4 L (12.5-18.0) g/dL Hct 33.5 L (42-50) % MCV 83.1 (78-100) fL MCH 25.8 L (26-32) pg MCHC 31.0 L (32-36) g/dL RDW 14.5 H (11.5-14.0) % Plt Count 557 H (150-450) x10^3/uL MPV 9.7 (7.5-11.0) fL Gran % 61.7 (36.0-66.0) % Immature Gran % (Auto) 0.4 (0.00-0.4) % Nucleat RBC Rel Count 0.0 (0.00-0.1) % Eos # (Auto) 0.47 (0-0.5) x10^3/uL Immature Gran # (Auto) 0.04 H (0.00-0.03) x10^3u/L Absolute Lymphs (auto) 2.32 (1.0-4.6) x10^3/uL Absolute Monos (auto) 0.64 (0.0-1.3) x10^3/uL Absolute Nucleated RBC 0.00 (0.00-0.01) x10^3u/L Lymphocytes % 24.7 (24.0-44.0) % Monocytes % 6.8 (0.0-12.0) % Eosinophils % 5.0 (0.00-5.0) % Basophils % 1.4 (0.0-0.4) % Absolute Granulocytes 5.81 (1.4-6.9) x10^3/uL Basophils # 0.13 (0-0.4) x10^3/uL Sodium 140 (135-145) mmol/L Potassium 3.7 (3.5-5.1) mmol/L Chloride 107 (98-107) mmol/L Carbon Dioxide 27 (22-30) mmol/L Anion Gap 10.2 (5-15) MEQ/L BUN 25 H (9-20) mg/dL Creatinine 1.22 (0.66-1.25) mg/dL Estimated GFR 67.0 ML/MIN Glucose 193 H (74-106) mg/dL POC Glucometer 128 H (74 to 106) mg/dL Calcium 8.8 (8.4-10.2) mg/dL Total Bilirubin 0.30 (0.2-1.3) mg/dL AST 46 (17-59) U/L ALT 51 H (0-50) U/L Alkaline Phosphatase 312 H (38-126) U/L NT-Pro-B Natriuret Pep (<300) pg/mL Serum Total Protein 7.1 (6.3-8.2) g/dL Albumin 3.0 L (3.5-5.0) g/dL Fluid Crystal ID (None seen) Vancomycin Trough (10-20) ug/mL Radiology Exams: Radiology Procedures Category Date Time Status DIA/LIMB PRESSURES BILATERAL [US] Stat Exams 03/08/24 14:45 Completed ARTERIAL BILAT LOWER EXTREMITY [US] Stat Exams 03/08/24 14:34 Completed FOOT (MINIMUM 3 VIEWS) Stat Exams 03/09/24 15:00 Completed FOOT (MINIMUM 3 VIEWS) Urgent Exams 03/08/24 14:33 Completed FOOT (MINIMUM 3 VIEWS) Urgent Exams 03/08/24 14:33 Completed FOOT (MINIMUM 3 VIEWS) Urgent Exams 03/09/24 15:00 Completed PELVIS (1 OR 2 VIEWS) Stat Exams 03/08/24 16:26 Completed SHOULDER Stat Exams 03/08/24 09:59 Completed UPPER EXTREMITY W/O CONTRAST [CT] Stat Exams 03/08/24 16:47 Completed Multi-Disciplinary Progress Notes: Multi-Disciplinary Progress Notes 03/09/24 15:50 Physical Therapy Note by Cecy(L#[id number])Nnacy P.T. ORDER HELD THIS DATE PT. IS NWB BILATERAL LES AFTER FOOT SX. PT. SHOULD TRANSFER OUT OF BED W/ ASSIST OF NSG STAFF OVER THE WEEKEND PRN. Initialized on 03/09/24 15:50 - END OF NOTE 03/09/24 15:30 Pharmacy Note by Louis Goel Vancomycin trough 18.91. Will lower dose to keep in range. Trough 6-1 with 19:00 dose. Initialized on 03/09/24 15:30 - END OF NOTE 03/09/24 11:21 Case Management Note by Asya Corea S/W DAUGHTER BHANU- SHE PLANS FOR PATIENT TO RETURN TO [place] AT HOME OF [place]. Initialized on 03/09/24 11:21 - END OF NOTE 03/09/24 08:29 Occupational Therapy Note by Esthela Mejia OCCUPATIONAL THERAPY EVALUATION: OT REVIEWED CHART PATIENT WAS ADMITTED DUE TO RIGHT SHOULDER PAIN AND SIGNIFICANT SWELLING. HE WAS DIAGNOSED WITH SEPTIC SHOULDER AND NOTED WITH NECROTIC TOES ON RIGHT AND LEFT SIDE. OT SPOKE WITH RN, RANDAL, THIS MORNING WHO STATES THAT HE IS TO UNDERGO SURGERY AT 8:45AM TODAY WITH DR. DIANA AND DR. NEIL. OT REQUESTS WEIGHTBEARING AND SHOULDER PRECAUTIONS FOLLOWING SURGERY. Initialized on 03/09/24 08:29 - END OF NOTE Assessment/Plan (1) Septic joint of right shoulder region Current Visit: Yes Status: Acute Assessment & Plan: -Ortho consulted note reviewed,aspiration performed - fluid was sent to the lab for evaluation to include cultures, gram stain, cell count and crystal evaluation - plan for arthroscopic lavage 03/09/24 -Hold Eliquis -Pain control -Vanc/Zosyn -follow cultures -blood/urine/wound cultures pending 03/09: - ortho note reviewed, agree with plan for washout right shoulder -continue vanc/zosyn - cultures pending 03/10: -PODS#1, pain controlled, cultures pending, continue vanc/zosyn for now Code(s): M00.9 - PYOGENIC ARTHRITIS, UNSPECIFIED (2) Gangrene of toe of both feet Current Visit: Yes Status: Acute Assessment & Plan: -Podiatry consulted, appreciate recs -arterial doppler pending -XRay bilateral feet 03/09: -Podiatry note reviewed, agree with plan for amputation 1st and 3rd digit of the right foot. amputation 2nd digit of the left foot 03/10: -Discussed case with podiatry -continue current abx, they will follow Code(s): I96 - GANGRENE, NOT ELSEWHERE CLASSIFIED (3) DM (diabetes mellitus) Current Visit: No Status: Acute Qualifiers: Diabetes mellitus type: type 2 Diabetes mellitus fci insulin use: unspecified fci insulin use status Diabetes mellitus complication detail: with foot ulcer Assessment & Plan: -SSI/glargine -ADA diet -npo after midnight -A1c 6.64 Code(s): E11.9 - TYPE 2 DIABETES MELLITUS WITHOUT COMPLICATIONS (4) CHF (congestive heart failure) Current Visit: Yes Status: Acute Assessment & Plan: Most recent echo reviewed from 06/21/23: EF at 50% IMPRESSION: 1) LOW NORMAL CONTRACTILITY OF THE LEFT VENTRICLE. 2) MILD ASYMMETRIC LEFT VENTRICULAR HYPERTROPHY INVOLVING THE LEFT VENTRICULAR SEPTUM. 3) MILD LEFT VENTRICULAR DILATATION. 4) SEVERE LEFT ATRIAL DILATATION. 5) MILD AORTIC REGURGITATION. 6) MODERATE TO SEVERE MITRAL REGURGITATION. 7) MODERATE TRICUSPID REGURGITATION. 8) MODERATE PULMONARY HYPERTENSION. 9) MODERATE PULMONIC REGURGITATION. -Does not appear to be in exacerbation -continue home medications Code(s): I50.9 - HEART FAILURE, UNSPECIFIED (5) Atrial fibrillation Current Visit: No Status: Acute Qualifiers: Atrial fibrillation type: paroxysmal Qualified Code(s): I48.0 - Paroxysmal atrial fibrillation Assessment & Plan: -tele -Eliquis on hold for procedure scheduled for 03/09/24 -continue metoprolol #Sacral Ulcer, stage II -surgery consult - may need wound vac 03/10: -Surgery consulted - no intervention at this time VTE: Eliquis - on hold PPI: protonix Dispo: pending surgical consult Code status: Full Code Code(s): I48.91 - UNSPECIFIED ATRIAL FIBRILLATION (6) UTI (urinary tract infection) Current Visit: Yes Status: Acute Assessment & Plan: -UA suspicious for UTI, patient with indwelling catheter, could be colonization, IV abx with vanc/zosyn - follow cultures 03/10: -urine culture with NGTD, will follow Code(s): N39.0 - URINARY TRACT INFECTION, SITE NOT SPECIFIED (7) HTN (hypertension) Current Visit: Yes Status: Acute Assessment & Plan: -stable, continue home meds - monitor closely Code(s): I10 - ESSENTIAL (PRIMARY) HYPERTENSION Code(s): M00.9 - PYOGENIC ARTHRITIS, UNSPECIFIED Code(s): M00.9 - PYOGENIC ARTHRITIS, UNSPECIFIED (2) Gangrene of toe of both feet Current Visit: Yes Status: Acute Code(s): I96 - GANGRENE, NOT ELSEWHERE CLASSIFIED (3) DM (diabetes mellitus) Current Visit: No Status: Acute Qualifiers: Diabetes mellitus type: type 2 Diabetes mellitus topographical engineer insulin use: unspecified topographical engineer insulin use status Diabetes mellitus complication detail: with foot ulcer Code(s): E11.9 - TYPE 2 DIABETES MELLITUS WITHOUT COMPLICATIONS (4) CHF (congestive heart failure) Current Visit: Yes Status: Acute Code(s): I50.9 - HEART FAILURE, UNSPECIFIED (5) Atrial fibrillation Current Visit: No Status: Acute Qualifiers: Atrial fibrillation type: paroxysmal Qualified Code(s): I48.0 - Paroxysmal atrial fibrillation Code(s): I48.91 - UNSPECIFIED ATRIAL FIBRILLATION (6) UTI (urinary tract infection) Current Visit: Yes Status: Acute Code(s): N39.0 - URINARY TRACT INFECTION, SITE NOT SPECIFIED (7) HTN (hypertension) Current Visit: Yes Status: Acute Code(s): I10 - ESSENTIAL (PRIMARY) HYPERTENSION
--- NOTE | 2024-03-10 10:49 | PCM.NOTE ---
ORTHO Progress Note - Progress Note ORTHO Progress Note: S: Postop day 1 from right shoulder arthroscopic incision and drainage, Pain moderate, O: Hemovac with no drainage in it. Drain is clotted.Moderate serosanguineous drainage on bandage Moving fingers well with mild edema Right shoulder cultures pending A: Stable status post incision and drainage of right septic shoulder arthritis P: Drain removed. New bandage applied. Await culture results.Continue on his vancomycin and Zosyn until cultures are known.Patient also has foot ulcers being followed by podiatry Will likely discharge back to half-way on 6 weeks of IV antibiotics by PICC line on Tuesday May change dressing as needed
[2024-03-10] MEDS: HUMALOG SQ PRN (17:14)
[2024-03-10] MEDS: TROUGH DRUG LEVELS IJ ONE (18:31)
[2024-03-10 18:42] LABS: ANION GAP 9.7 MEQ/L (5-15); BILIRUBIN,TOTAL 0.3 mg/dL (0.2-1.3); Calcium 8.5 mg/dL (8.4-10.2); Creatinine 1 1.08 mg/dL (0.66-1.25); EST GLOMERULAR FILTRATION RATE 77.6 ML/MIN; MAGNESIUM 1.5 mg/dL (1.6-2.3); Potassium 3.1 mmol/L (3.5-5.1); Total Protein 7.1 g/dL (6.3-8.2)
[2024-03-10] MEDS: PLAVIX Tablet PO SCH (18:55)
[2024-03-10] MEDS: Klor Con PO SCH (19:33)
[2024-03-10] MEDS: MAGNESIUM SULF 2 G/50 ML BAG 2 GM/50 ML PIGGYBACK IV ONE (20:26)
[2024-03-10] MEDS: ELIQUIS 2.5 MG TABLET PO SCH (21:28)
[2024-03-11 05:48] LABS: Absolute Neutrophil Ct (ANC) 7.66 x10^3/uL (1.4-6.9); BASOPHIL % 1.4 % (0.0-0.4); Basophil (Absolute #) 0.16 x10^3/uL (0-0.4); Eosinophil % 4.6 % (0.00-5.0); Eosinophil (Absolute #) 0.53 x10^3/uL (0-0.5); Hematocrit 31.7 % (42-50); Hemoglobin 9.9 g/dL (12.5-18.0); IMMATURE GRAN # 0.07 x10^3u/L (0.00-0.03); IMMATURE GRAN % 0.6 % (0.00-0.4); Lymphocyte (Absolute #) 2.57 x10^3/uL (1.0-4.6); Lymphocytes % 22.1 % (24.0-44.0); Mean Cell Volume 82.8 fL (78-100); Mean Corpuscular Hemoglobin 25.8 pg (26-32); Mean Corpuscular Hgb Concent. 31.2 g/dL (32-36); Mean Platelet Volume 9.3 fL (7.5-11.0); Monocyte (Absolute #) 0.64 x10^3/uL (0.0-1.3); Monocytes % 5.5 % (0.0-12.0); Neutrophil % 65.8 % (36.0-66.0); Platelet Count 487 x10^3/uL (150-450); Red Blood Count 3.83 x10^6/uL (4.1-5.6); Red Cell Distribution Width 14.6 % (11.5-14.0); White Blood Count 11.6 x10^3/uL (4.0-10.5)
[2024-03-11 06:04] LABS: ANION GAP 9.8 MEQ/L (5-15); BILIRUBIN,TOTAL 0.5 mg/dL (0.2-1.3); Calcium 8.9 mg/dL (8.4-10.2); Creatinine 1 1.03 mg/dL (0.66-1.25); EST GLOMERULAR FILTRATION RATE 82.1 ML/MIN; MAGNESIUM 1.6 mg/dL (1.6-2.3); Potassium 3.9 mmol/L (3.5-5.1); Total Protein 7.1 g/dL (6.3-8.2)
--- NOTE | 2024-03-11 10:25 | PCM.NOTE ---
Date and Time: 03/11/24 1020 Subjective Assessment: Minimal pain postop day 2 from right shoulder arthroscopic incision and drainage for septic arthritis Objective Exam Wound Assessment: Skin/Wound Assessment Wound/Incision Assessment Start: 03/08/24 16:17 Text: Status: Active Freq: Q6H Protocol: Document 03/11/24 08:00 AR (Rec: 03/11/24 09:15 AR [id number]) Wound/Incision Assessment Right Shoulder Wound Assessment Shift Assessment Wound Type Incision Wound Stage Non Pressure Wound Dressing Status Dry & Intact Right Toe Wound Assessment Shift Assessment Wound Type Amputation Dressing Status Dry & Intact Drainage Amount None Comment Digit 1 & 3, Dressing per CHEO Min Left Toe Wound Assessment Shift Assessment Wound Type Amputation Dressing Status Dry & Intact Drainage Amount None Comment Digit 2, Dressing per CHEO Min Buttock Wound Assessment Shift Assessment Wound Type Pressure Ulcer Wound Stage Stage II Drainage Amount None General Appearance Open to air Surrounding Tissue [place] Comment BARRIER CREAM APPLIED PRN Sacrum Wound Assessment Shift Assessment Wound Type Pressure Ulcer Wound Stage Stage II Drainage Amount None General Appearance Open to air Surrounding Tissue [place] Comment BARRIER CREAM APPLIED PRN Wound Photo Photo Taken Yes Comment: in chart Comments: 03/11/24 10:21 Afebrile vital signs stable Moderate purulent drainage on right shoulder bandage Moving fingers well with mild edema No organisms seen on Gram stain, culture pending Urine culture showing Enterobacter cloacae Objective Data Vital Signs: Vital Signs - 24 hr Temp Pulse Resp BP Pulse Ox 03/11/24 08:00 98.7 F 114 H 20 140/90 97 03/11/24 07:25 110 H 18 95 03/11/24 05:00 97.6 F 113 H 18 136/64 95 03/11/24 01:00 98.3 F 110 H 18 142/63 97 03/10/24 20:08 98.8 F 113 H 18 114/64 95 03/10/24 18:40 110 H 18 95 03/10/24 17:00 98.1 F 56 L 17 155/92 97 03/10/24 12:26 98.3 F 103 H 18 138/66 97 Pain Assessment - Last Documented Pain Intensity 8 [facility] Intake and Output: Intake & Output 03/08/24 03/09/24 03/10/24 03/11/24 11:59 11:59 11:59 11:59 Intake Total 240 2170 3290 Output Total 1100 1200 6900 Balance -860 970 -3610 Weight 102.8 kg 103.8 kg 103.8 kg 104.5 kg Lab Results: Lab Results-Last 24 Hours 03/10/24 03/10/24 03/10/24 Range/Units 12:07 16:55 18:20 WBC (4.0-10.5) x10^3/uL RBC (4.1-5.6) x10^6/uL Hgb (12.5-18.0) g/dL Hct (42-50) % MCV (78-100) fL MCH (26-32) pg MCHC (32-36) g/dL RDW (11.5-14.0) % Plt Count (150-450) x10^3/uL MPV (7.5-11.0) fL Gran % (36.0-66.0) % Immature Gran % (Auto) (0.00-0.4) % Nucleat RBC Rel Count (0.00-0.1) % Eos # (Auto) (0-0.5) x10^3/uL Immature Gran # (Auto) (0.00-0.03) x10^3u/L Absolute Lymphs (auto) (1.0-4.6) x10^3/uL Absolute Monos (auto) (0.0-1.3) x10^3/uL Absolute Nucleated RBC (0.00-0.01) x10^3u/L Lymphocytes % (24.0-44.0) % Monocytes % (0.0-12.0) % Eosinophils % (0.00-5.0) % Basophils % (0.0-0.4) % Absolute Granulocytes (1.4-6.9) x10^3/uL Basophils # (0-0.4) x10^3/uL Sodium (135-145) mmol/L Potassium (3.5-5.1) mmol/L Chloride (98-107) mmol/L Carbon Dioxide (22-30) mmol/L Anion Gap (5-15) MEQ/L BUN (9-20) mg/dL Creatinine (0.66-1.25) mg/dL Estimated GFR ML/MIN Glucose (74-106) mg/dL POC Glucometer 135 H 239 H (74 to 106) mg/dL Calcium (8.4-10.2) mg/dL Magnesium (1.6-2.3) mg/dL Total Bilirubin (0.2-1.3) mg/dL AST (17-59) U/L ALT (0-50) U/L Alkaline Phosphatase (38-126) U/L Serum Total Protein (6.3-8.2) g/dL Albumin (3.5-5.0) g/dL Vancomycin Trough 17.26 (10-20) ug/mL 03/10/24 03/10/24 03/11/24 Range/Units 18:20 21:16 05:32 WBC 11.6 H (4.0-10.5) x10^3/uL RBC 3.83 L (4.1-5.6) x10^6/uL Hgb 9.9 L (12.5-18.0) g/dL Hct 31.7 L (42-50) % MCV 82.8 (78-100) fL MCH 25.8 L (26-32) pg MCHC 31.2 L (32-36) g/dL RDW 14.6 H (11.5-14.0) % Plt Count 487 H (150-450) x10^3/uL MPV 9.3 (7.5-11.0) fL Gran % 65.8 (36.0-66.0) % Immature Gran % (Auto) 0.6 H (0.00-0.4) % Nucleat RBC Rel Count 0.0 (0.00-0.1) % Eos # (Auto) 0.53 H (0-0.5) x10^3/uL Immature Gran # (Auto) 0.07 H (0.00-0.03) x10^3u/L Absolute Lymphs (auto) 2.57 (1.0-4.6) x10^3/uL Absolute Monos (auto) 0.64 (0.0-1.3) x10^3/uL Absolute Nucleated RBC 0.00 (0.00-0.01) x10^3u/L Lymphocytes % 22.1 L (24.0-44.0) % Monocytes % 5.5 (0.0-12.0) % Eosinophils % 4.6 (0.00-5.0) % Basophils % 1.4 (0.0-0.4) % Absolute Granulocytes 7.66 H (1.4-6.9) x10^3/uL Basophils # 0.16 (0-0.4) x10^3/uL Sodium 140 (135-145) mmol/L Potassium 3.1 L (3.5-5.1) mmol/L Chloride 107 (98-107) mmol/L Carbon Dioxide 26 (22-30) mmol/L Anion Gap 9.7 (5-15) MEQ/L BUN 23 H (9-20) mg/dL Creatinine 1.08 (0.66-1.25) mg/dL Estimated GFR 77.6 ML/MIN Glucose 247 H (74-106) mg/dL POC Glucometer 173 H (74 to 106) mg/dL Calcium 8.5 (8.4-10.2) mg/dL Magnesium 1.5 L (1.6-2.3) mg/dL Total Bilirubin 0.30 (0.2-1.3) mg/dL AST 34 (17-59) U/L ALT 41 (0-50) U/L Alkaline Phosphatase 319 H (38-126) U/L Serum Total Protein 7.1 (6.3-8.2) g/dL Albumin 3.0 L (3.5-5.0) g/dL Vancomycin Trough (10-20) ug/mL 03/11/24 03/11/24 Range/Units 05:32 07:51 WBC (4.0-10.5) x10^3/uL RBC (4.1-5.6) x10^6/uL Hgb (12.5-18.0) g/dL Hct (42-50) % MCV (78-100) fL MCH (26-32) pg MCHC (32-36) g/dL RDW (11.5-14.0) % Plt Count (150-450) x10^3/uL MPV (7.5-11.0) fL Gran % (36.0-66.0) % Immature Gran % (Auto) (0.00-0.4) % Nucleat RBC Rel Count (0.00-0.1) % Eos # (Auto) (0-0.5) x10^3/uL Immature Gran # (Auto) (0.00-0.03) x10^3u/L Absolute Lymphs (auto) (1.0-4.6) x10^3/uL Absolute Monos (auto) (0.0-1.3) x10^3/uL Absolute Nucleated RBC (0.00-0.01) x10^3u/L Lymphocytes % (24.0-44.0) % Monocytes % (0.0-12.0) % Eosinophils % (0.00-5.0) % Basophils % (0.0-0.4) % Absolute Granulocytes (1.4-6.9) x10^3/uL Basophils # (0-0.4) x10^3/uL Sodium 140 (135-145) mmol/L Potassium 3.9 D (3.5-5.1) mmol/L Chloride 108 H (98-107) mmol/L Carbon Dioxide 27 (22-30) mmol/L Anion Gap 9.8 (5-15) MEQ/L BUN 21 H (9-20) mg/dL Creatinine 1.03 (0.66-1.25) mg/dL Estimated GFR 82.1 ML/MIN Glucose 114 H (74-106) mg/dL POC Glucometer 105 (74 to 106) mg/dL Calcium 8.9 (8.4-10.2) mg/dL Magnesium 1.6 (1.6-2.3) mg/dL Total Bilirubin 0.50 (0.2-1.3) mg/dL AST 36 (17-59) U/L ALT 35 (0-50) U/L Alkaline Phosphatase 291 H (38-126) U/L Serum Total Protein 7.1 (6.3-8.2) g/dL Albumin 3.0 L (3.5-5.0) g/dL Vancomycin Trough (10-20) ug/mL Radiology Exams: Radiology Procedures Category Date Time Status FOOT (MINIMUM 3 VIEWS) Stat Exams 03/09/24 15:00 Completed FOOT (MINIMUM 3 VIEWS) Urgent Exams 03/09/24 15:00 Completed Assessment/Plan (1) Septic joint of right shoulder region Current Visit: Yes Status: Acute Assessment & Plan: ContinueZosyn and vancomycin until cultures known Daily dressing change with dry dressing Plavix and Eliquis restarted due to PVCs Hopefully will get PICC line tomorrow and transfer toNursing home on 6 weeks of IV antibiotics Dictated by cultures Code(s): M00.9 - PYOGENIC ARTHRITIS, UNSPECIFIED
--- NOTE | 2024-03-11 10:37 | PCM.NOTE ---
Date and Time: 03/11/24 1027 Subjective Assessment: Mr. Hermosillo is a 64 year old male with a pmhx of dementia, TIA, CHF, AFIB (on Eliquis), HLD, PVD, DMII, anxiety, GERD, chronic indwelling catheter, and depression (poor historian) who presented to ED from nursing facility with a five day history of progressive swelling to the right shoulder and pain. Patient describes the pain as non-radiating, dull and aching, and "tight." Pain is aggravated with movement. Relieved with pain medications. He is rating pain 4/10 on numerical pain scale during this interview. No trauma reported. In ED patient was reported to have severe LROM to RUE. Right shoulder xray showing new anterior inferior humeral head dislocation with diffuse soft tissue swelling. Surgery was consulted (Dr. Avendano) with recommendations for drainage of effusion and reduction. Drainage performed in ED and sent for cultures -growing gram + organisms, pending. Lab findings with normocytic anemia, elevated alk phos and procal. Urine culture with enterobacter clocae complex, and blood cultures pending. Lactic acid noted as WNL. IP IP IV abx with Vancomycin and Zosyn Ortho performed right shoulder arthroscopic incision and drainage for septic arthritis. Of note, upon exam of BLE Right great toe and third toe with necrosis - left second toe with necrosis, left great toe with ulceration (healing), and left fifth toe with ulcer. Podiatry consulted and amputation 1st and 3rd digit of the right foot. amputation 2nd digit of the left foot performed. Ortho note from 03/11/24 reviewed, agree with plan for continued IV abx - follow cultures, most likely will need extended course (6 weeks). PICC to be placed 03/12/24. Possible discharge back to OR tomorrow pending cultures. 03/09/24: Met with patient and daughter bedside. Patient endorsing pain to right shoulder, otherwise no complaints this morning. Podiatry and ortho documentation reviewed and agree with plan for amputation 1st and 3rd digit of the right foot. amputation 2nd digit of the left foot/ washout right shoulder. Cultures pending. Plan for continued abx. Of note, patient with non-healing sacral wound as well, will have surgery evaluate, may need debridement/wound vac. 03/10/24: Met with patient bedside. Endorses pain in right shoulder and bilateral feet but improved, rating at 4/10 on numerical pain scale. Discussed case with podiatry and ortho (Dr. Cuevas), plan for continuation of IV abx, will follow culture. Most likely will stay through the weekend, possible d/c Tuesday. Surgery consulted for sacral wound, no need for intervention at this time. Denies fever,cough, sob, cp, abdominal pain, BABB, dizziness, N/V/D. 03/11/24: PODS # 2 s/p right shoulder arthroscopic I&D with washout for septic arthritis and amputation 1st and 3rd digit of the right foot. Amputation 2nd digit of the left foot. Patient states he is doing well. He is endorsing pain to right shoulder 8/10 on numerical pain scale. Bilateral feet with mild pain. Moderate purulent drainage on right shoulder surgical dressing. Gram stain with rare gram positive cocci and rods. Cultures pending. BLE with surgical dressings, podiatry managing. No other complaints at this time. - Review of Systems Constitutional: No Symptoms Eyes: No Symptoms Ears, Nose, & Throat: No Symptoms Respiratory: No Symptoms Cardiac: No Symptoms Abdominal/Gastrointestinal: No Symptoms Genitourinary Symptoms: No Symptoms, Other (indwelling cath) Skin: Other (surgical incision to right shoulder with purulent drainage noted on surgical dressing) Neurological: No Symptoms Psychological: No Symptoms Endocrine: No Symptoms Hematologic/Lymphatic: No Symptoms Immunological/Allergic: No Symptoms Objective Exam General Appearance: no apparent distress Neurologic Exam: alert, oriented x 3, cooperative Skin Exam: other (surgical incision to right shoulder with purulent drainage noted on surgical dressing) Wound Assessment: Skin/Wound Assessment Wound/Incision Assessment Start: 03/08/24 16:17 Text: Status: Active Freq: Q6H Protocol: Document 03/11/24 08:00 AR (Rec: 03/11/24 09:15 AR [id number]) Wound/Incision Assessment Right Shoulder Wound Assessment Shift Assessment Wound Type Incision Wound Stage Non Pressure Wound Dressing Status Dry & Intact Right Toe Wound Assessment Shift Assessment Wound Type Amputation Dressing Status Dry & Intact Drainage Amount None Comment Digit 1 & 3, Dressing per CHEO Min Left Toe Wound Assessment Shift Assessment Wound Type Amputation Dressing Status Dry & Intact Drainage Amount None Comment Digit 2, Dressing per CHEO Min Buttock Wound Assessment Shift Assessment Wound Type Pressure Ulcer Wound Stage Stage II Drainage Amount None General Appearance Open to air Surrounding Tissue Whitetail Comment BARRIER CREAM APPLIED PRN Sacrum Wound Assessment Shift Assessment Wound Type Pressure Ulcer Wound Stage Stage II Drainage Amount None General Appearance Open to air Surrounding Tissue Whitetail Comment BARRIER CREAM APPLIED PRN Wound Photo Photo Taken Yes Comment: in chart Eye Exam: PERRL Ears, Nose, Throat Exam: normal ENT inspection Neck Exam: normal inspection Respiratory Exam: normal breath sounds, lungs clear Cardiovascular Exam: regular rate/rhythm, tachycardia Gastrointestinal/Abdomen Exam: soft, normal bowel sounds Extremity Exam: other (BLE with surgical dressing) Back Exam: normal inspection Male Genitalia Exam: deferred Rectal Exam: deferred Objective Data Vital Signs: Vital Signs - 24 hr Temp Pulse Resp BP Pulse Ox 03/11/24 08:00 98.7 F 114 H 20 140/90 97 03/11/24 07:25 110 H 18 95 03/11/24 05:00 97.6 F 113 H 18 136/64 95 03/11/24 01:00 98.3 F 110 H 18 142/63 97 03/10/24 20:08 98.8 F 113 H 18 114/64 95 03/10/24 18:40 110 H 18 95 03/10/24 17:00 98.1 F 56 L 17 155/92 97 03/10/24 12:26 98.3 F 103 H 18 138/66 97 Pain Assessment - Last Documented Pain Intensity 8 Pain Scale Used [facility] Intake and Output: Intake & Output 03/08/24 03/09/24 03/10/24 03/11/24 11:59 11:59 11:59 11:59 Intake Total 240 2170 3290 Output Total 1100 1200 6900 Balance -860 970 -3610 Weight 102.8 kg 103.8 kg 103.8 kg 104.5 kg Lab Results: Lab Results-Last 24 Hours 03/10/24 03/10/24 03/10/24 Range/Units 12:07 16:55 18:20 WBC (4.0-10.5) x10^3/uL RBC (4.1-5.6) x10^6/uL Hgb (12.5-18.0) g/dL Hct (42-50) % MCV (78-100) fL MCH (26-32) pg MCHC (32-36) g/dL RDW (11.5-14.0) % Plt Count (150-450) x10^3/uL MPV (7.5-11.0) fL Gran % (36.0-66.0) % Immature Gran % (Auto) (0.00-0.4) % Nucleat RBC Rel Count (0.00-0.1) % Eos # (Auto) (0-0.5) x10^3/uL Immature Gran # (Auto) (0.00-0.03) x10^3u/L Absolute Lymphs (auto) (1.0-4.6) x10^3/uL Absolute Monos (auto) (0.0-1.3) x10^3/uL Absolute Nucleated RBC (0.00-0.01) x10^3u/L Lymphocytes % (24.0-44.0) % Monocytes % (0.0-12.0) % Eosinophils % (0.00-5.0) % Basophils % (0.0-0.4) % Absolute Granulocytes (1.4-6.9) x10^3/uL Basophils # (0-0.4) x10^3/uL Sodium (135-145) mmol/L Potassium (3.5-5.1) mmol/L Chloride (98-107) mmol/L Carbon Dioxide (22-30) mmol/L Anion Gap (5-15) MEQ/L BUN (9-20) mg/dL Creatinine (0.66-1.25) mg/dL Estimated GFR ML/MIN Glucose (74-106) mg/dL POC Glucometer 135 H 239 H (74 to 106) mg/dL Calcium (8.4-10.2) mg/dL Magnesium (1.6-2.3) mg/dL Total Bilirubin (0.2-1.3) mg/dL AST (17-59) U/L ALT (0-50) U/L Alkaline Phosphatase (38-126) U/L Serum Total Protein (6.3-8.2) g/dL Albumin (3.5-5.0) g/dL Vancomycin Trough 17.26 (10-20) ug/mL 03/10/24 03/10/24 03/11/24 Range/Units 18:20 21:16 05:32 WBC 11.6 H (4.0-10.5) x10^3/uL RBC 3.83 L (4.1-5.6) x10^6/uL Hgb 9.9 L (12.5-18.0) g/dL Hct 31.7 L (42-50) % MCV 82.8 (78-100) fL MCH 25.8 L (26-32) pg MCHC 31.2 L (32-36) g/dL RDW 14.6 H (11.5-14.0) % Plt Count 487 H (150-450) x10^3/uL MPV 9.3 (7.5-11.0) fL Gran % 65.8 (36.0-66.0) % Immature Gran % (Auto) 0.6 H (0.00-0.4) % Nucleat RBC Rel Count 0.0 (0.00-0.1) % Eos # (Auto) 0.53 H (0-0.5) x10^3/uL Immature Gran # (Auto) 0.07 H (0.00-0.03) x10^3u/L Absolute Lymphs (auto) 2.57 (1.0-4.6) x10^3/uL Absolute Monos (auto) 0.64 (0.0-1.3) x10^3/uL Absolute Nucleated RBC 0.00 (0.00-0.01) x10^3u/L Lymphocytes % 22.1 L (24.0-44.0) % Monocytes % 5.5 (0.0-12.0) % Eosinophils % 4.6 (0.00-5.0) % Basophils % 1.4 (0.0-0.4) % Absolute Granulocytes 7.66 H (1.4-6.9) x10^3/uL Basophils # 0.16 (0-0.4) x10^3/uL Sodium 140 (135-145) mmol/L Potassium 3.1 L (3.5-5.1) mmol/L Chloride 107 (98-107) mmol/L Carbon Dioxide 26 (22-30) mmol/L Anion Gap 9.7 (5-15) MEQ/L BUN 23 H (9-20) mg/dL Creatinine 1.08 (0.66-1.25) mg/dL Estimated GFR 77.6 ML/MIN Glucose 247 H (74-106) mg/dL POC Glucometer 173 H (74 to 106) mg/dL Calcium 8.5 (8.4-10.2) mg/dL Magnesium 1.5 L (1.6-2.3) mg/dL Total Bilirubin 0.30 (0.2-1.3) mg/dL AST 34 (17-59) U/L ALT 41 (0-50) U/L Alkaline Phosphatase 319 H (38-126) U/L Serum Total Protein 7.1 (6.3-8.2) g/dL Albumin 3.0 L (3.5-5.0) g/dL Vancomycin Trough (10-20) ug/mL 03/11/24 03/11/24 Range/Units 05:32 07:51 WBC (4.0-10.5) x10^3/uL RBC (4.1-5.6) x10^6/uL Hgb (12.5-18.0) g/dL Hct (42-50) % MCV (78-100) fL MCH (26-32) pg MCHC (32-36) g/dL RDW (11.5-14.0) % Plt Count (150-450) x10^3/uL MPV (7.5-11.0) fL Gran % (36.0-66.0) % Immature Gran % (Auto) (0.00-0.4) % Nucleat RBC Rel Count (0.00-0.1) % Eos # (Auto) (0-0.5) x10^3/uL Immature Gran # (Auto) (0.00-0.03) x10^3u/L Absolute Lymphs (auto) (1.0-4.6) x10^3/uL Absolute Monos (auto) (0.0-1.3) x10^3/uL Absolute Nucleated RBC (0.00-0.01) x10^3u/L Lymphocytes % (24.0-44.0) % Monocytes % (0.0-12.0) % Eosinophils % (0.00-5.0) % Basophils % (0.0-0.4) % Absolute Granulocytes (1.4-6.9) x10^3/uL Basophils # (0-0.4) x10^3/uL Sodium 140 (135-145) mmol/L Potassium 3.9 D (3.5-5.1) mmol/L Chloride 108 H (98-107) mmol/L Carbon Dioxide 27 (22-30) mmol/L Anion Gap 9.8 (5-15) MEQ/L BUN 21 H (9-20) mg/dL Creatinine 1.03 (0.66-1.25) mg/dL Estimated GFR 82.1 ML/MIN Glucose 114 H (74-106) mg/dL POC Glucometer 105 (74 to 106) mg/dL Calcium 8.9 (8.4-10.2) mg/dL Magnesium 1.6 (1.6-2.3) mg/dL Total Bilirubin 0.50 (0.2-1.3) mg/dL AST 36 (17-59) U/L ALT 35 (0-50) U/L Alkaline Phosphatase 291 H (38-126) U/L Serum Total Protein 7.1 (6.3-8.2) g/dL Albumin 3.0 L (3.5-5.0) g/dL Vancomycin Trough (10-20) ug/mL Radiology Exams: Radiology Procedures Category Date Time Status FOOT (MINIMUM 3 VIEWS) Stat Exams 03/09/24 15:00 Completed FOOT (MINIMUM 3 VIEWS) Urgent Exams 03/09/24 15:00 Completed PICC LINE PLACEMENT Routine Exams 03/11/24 10:25 Ordered Assessment/Plan (1) Septic joint of right shoulder region Current Visit: Yes Status: Acute Assessment & Plan: -Ortho consulted note reviewed,aspiration performed - fluid was sent to the lab for evaluation to include cultures, gram stain, cell count and crystal evaluation - plan for arthroscopic lavage 03/09/24 -Hold Eliquis -Pain control -Vanc/Zosyn -follow cultures -blood/urine/wound cultures pending 03/09: - ortho note reviewed, agree with plan for washout right shoulder -continue vanc/zosyn - cultures pending 03/10: -PODS#1, pain controlled, cultures pending, continue vanc/zosyn for now /2: -PODS#2, pain controlled, gram stain with gram +cocci/rods -cultures pending - continue vanc/zosyn - most likely 6 weeks of IV abx per ORTHO, PICC to be placed tomorrow - follow cultures - continue plavix/eliquis per ortho Code(s): M00.9 - PYOGENIC ARTHRITIS, UNSPECIFIED (2) Gangrene of toe of both feet Current Visit: Yes Status: Acute Assessment & Plan: -Podiatry consulted, appreciate recs -arterial doppler pending -XRay bilateral feet 03/09: -Podiatry note reviewed, agree with plan for amputation 1st and 3rd digit of the right foot. amputation 2nd digit of the left foot 03/10: -Discussed case with podiatry -continue current abx, they will follow Code(s): I96 - GANGRENE, NOT ELSEWHERE CLASSIFIED (3) DM (diabetes mellitus) Current Visit: No Status: Acute Qualifiers: Diabetes mellitus type: type 2 Diabetes mellitus retirement insulin use: unspecified retirement insulin use status Diabetes mellitus complication detail: with foot ulcer Assessment & Plan: -SSI/glargine -ADA diet -npo after midnight -A1c 6.64 03/11: -SSI changed to high dose Code(s): E11.9 - TYPE 2 DIABETES MELLITUS WITHOUT COMPLICATIONS (4) CHF (congestive heart failure) Current Visit: Yes Status: Acute Assessment & Plan: Most recent echo reviewed from 06/21/23: EF at 50% IMPRESSION: 1) LOW NORMAL CONTRACTILITY OF THE LEFT VENTRICLE. 2) MILD ASYMMETRIC LEFT VENTRICULAR HYPERTROPHY INVOLVING THE LEFT VENTRICULAR SEPTUM. 3) MILD LEFT VENTRICULAR DILATATION. 4) SEVERE LEFT ATRIAL DILATATION. 5) MILD AORTIC REGURGITATION. 6) MODERATE TO SEVERE MITRAL REGURGITATION. 7) MODERATE TRICUSPID REGURGITATION. 8) MODERATE PULMONARY HYPERTENSION. 9) MODERATE PULMONIC REGURGITATION. -Does not appear to be in exacerbation -continue home medications Code(s): I50.9 - HEART FAILURE, UNSPECIFIED (5) Atrial fibrillation Current Visit: No Status: Acute Qualifiers: Atrial fibrillation type: paroxysmal Qualified Code(s): I48.0 - Paroxysmal atrial fibrillation Assessment & Plan: -tele -Eliquis on hold for procedure scheduled for 03/09/24 -continue metoprolol 03/11/24: -continue eliquis #Sacral Ulcer, stage II -surgery consult - may need wound vac 03/10: -Surgery consulted - no intervention at this time VTE: Eliquis PPI: protonix Dispo: pending surgical consult Code status: Full Code Code(s): I48.91 - UNSPECIFIED ATRIAL FIBRILLATION (6) UTI (urinary tract infection) Current Visit: Yes Status: Acute Assessment & Plan: -UA suspicious for UTI, patient with indwelling catheter, could be colonization, IV abx with vanc/zosyn - follow cultures 03/10: -urine culture with NGTD, will follow 03/11: -Ucult with enterobacter clocae complex - sensitive to zosyn will continue Code(s): N39.0 - URINARY TRACT INFECTION, SITE NOT SPECIFIED (7) HTN (hypertension) Current Visit: Yes Status: Acute Assessment & Plan: -stable, continue home meds - monitor closely Code(s): I10 - ESSENTIAL (PRIMARY) HYPERTENSION Code(s): M00.9 - PYOGENIC ARTHRITIS, UNSPECIFIED (2) Gangrene of toe of both feet Current Visit: Yes Status: Acute Code(s): I96 - GANGRENE, NOT ELSEWHERE CLASSIFIED (3) DM (diabetes mellitus) Current Visit: No Status: Acute Qualifiers: Diabetes mellitus type: type 2 Diabetes mellitus retirement insulin use: unspecified retirement insulin use status Diabetes mellitus complication detail: with foot ulcer Code(s): E11.9 - TYPE 2 DIABETES MELLITUS WITHOUT COMPLICATIONS (4) CHF (congestive heart failure) Current Visit: Yes Status: Acute Code(s): I50.9 - HEART FAILURE, UNSPECIFIED (5) Atrial fibrillation Current Visit: No Status: Acute Qualifiers: Atrial fibrillation type: paroxysmal Qualified Code(s): I48.0 - Paroxysmal atrial fibrillation Code(s): I48.91 - UNSPECIFIED ATRIAL FIBRILLATION (6) UTI (urinary tract infection) Current Visit: Yes Status: Acute Code(s): N39.0 - URINARY TRACT INFECTION, SITE NOT SPECIFIED (7) HTN (hypertension) Current Visit: Yes Status: Acute Code(s): I10 - ESSENTIAL (PRIMARY) HYPERTENSION
[2024-03-11] MEDS ORDERED: HUMALOG SQ PRN (10:43)
[2024-03-12 05:04] LABS: Absolute Neutrophil Ct (ANC) 7.69 x10^3/uL (1.4-6.9); BASOPHIL % 1.4 % (0.0-0.4); Basophil (Absolute #) 0.16 x10^3/uL (0-0.4); Eosinophil % 4.1 % (0.00-5.0); Eosinophil (Absolute #) 0.46 x10^3/uL (0-0.5); Hematocrit 29.5 % (42-50); Hemoglobin 9.4 g/dL (12.5-18.0); IMMATURE GRAN # 0.09 x10^3u/L (0.00-0.03); IMMATURE GRAN % 0.8 % (0.00-0.4); Lymphocyte (Absolute #) 2.14 x10^3/uL (1.0-4.6); Lymphocytes % 19.1 % (24.0-44.0); Mean Cell Volume 81.3 fL (78-100); Mean Corpuscular Hemoglobin 25.9 pg (26-32); Mean Corpuscular Hgb Concent. 31.9 g/dL (32-36); Mean Platelet Volume 9.5 fL (7.5-11.0); Monocyte (Absolute #) 0.67 x10^3/uL (0.0-1.3); Neutrophil % 68.6 % (36.0-66.0); Platelet Count 468 x10^3/uL (150-450); Red Blood Count 3.63 x10^6/uL (4.1-5.6); White Blood Count 11.2 x10^3/uL (4.0-10.5)
[2024-03-12 05:15] LABS: ALBUMIN 2.9 g/dL (3.5-5.0); BILIRUBIN,TOTAL 0.8 mg/dL (0.2-1.3); Calcium 8.9 mg/dL (8.4-10.2); Creatinine 1 0.76 mg/dL (0.66-1.25); EST GLOMERULAR FILTRATION RATE 101.6 ML/MIN; Potassium 3.3 mmol/L (3.5-5.1); Total Protein 7.1 g/dL (6.3-8.2)
--- NOTE | 2024-03-12 08:00 | PCM.NOTE ---
Date and Time: 03/12/24 0756 Subjective Assessment: POD #1. No concerns. Dressings clean dry and intact. Physical Exam - Narrative Narrative Physical Exam: Podiatry Physical Exam Objective Data Vital Signs: Vital Signs - 24 hr Temp Pulse Resp BP Pulse Ox 03/12/24 07:29 97.9 F 110 H 18 136/57 98 03/12/24 06:39 110 H 18 98 03/12/24 04:00 98.6 F 112 H 19 129/76 94 L 03/12/24 00:00 98.6 F 114 H 16 130/81 93 L 03/11/24 20:07 97 03/11/24 20:00 99.1 F 113 H 18 149/100 93 L 03/11/24 16:00 98.7 F 114 H 18 143/99 97 03/11/24 11:48 97.5 F 114 H 18 148/102 97 03/11/24 08:00 98.7 F 114 H 20 140/90 97 Pain Assessment - Last Documented Pain Intensity 8 Pain Scale Used 0-10 Pain Scale Intake and Output: Intake & Output 03/09/24 03/10/24 03/11/24 03/12/24 11:59 11:59 11:59 11:59 Intake Total 240 2170 3290 1603 Output Total 1100 1200 6900 2350 Balance -860 970 -3610 -747 Weight 103.8 kg 103.8 kg 104.5 kg 104.2 kg Lab Results: Lab Results-Last 24 Hours 03/11/24 03/11/24 03/11/24 Range/Units 11:30 17:33 22:17 WBC (4.0-10.5) x10^3/uL RBC (4.1-5.6) x10^6/uL Hgb (12.5-18.0) g/dL Hct (42-50) % MCV (78-100) fL MCH (26-32) pg MCHC (32-36) g/dL RDW (11.5-14.0) % Plt Count (150-450) x10^3/uL MPV (7.5-11.0) fL Gran % (36.0-66.0) % Immature Gran % (Auto) (0.00-0.4) % Nucleat RBC Rel Count (0.00-0.1) % Eos # (Auto) (0-0.5) x10^3/uL Immature Gran # (Auto) (0.00-0.03) x10^3u/L Absolute Lymphs (auto) (1.0-4.6) x10^3/uL Absolute Monos (auto) (0.0-1.3) x10^3/uL Absolute Nucleated RBC (0.00-0.01) x10^3u/L Lymphocytes % (24.0-44.0) % Monocytes % (0.0-12.0) % Eosinophils % (0.00-5.0) % Basophils % (0.0-0.4) % Absolute Granulocytes (1.4-6.9) x10^3/uL Basophils # (0-0.4) x10^3/uL Sodium (135-145) mmol/L Potassium (3.5-5.1) mmol/L Chloride (98-107) mmol/L Carbon Dioxide (22-30) mmol/L Anion Gap (5-15) MEQ/L BUN (9-20) mg/dL Creatinine (0.66-1.25) mg/dL Estimated GFR ML/MIN Glucose (74-106) mg/dL POC Glucometer 122 H 147 H 156 H (74 to 106) mg/dL Calcium (8.4-10.2) mg/dL Total Bilirubin (0.2-1.3) mg/dL AST (17-59) U/L ALT (0-50) U/L Alkaline Phosphatase (38-126) U/L Serum Total Protein (6.3-8.2) g/dL Albumin (3.5-5.0) g/dL 03/12/24 03/12/24 03/12/24 Range/Units 04:45 04:45 07:23 WBC 11.2 H (4.0-10.5) x10^3/uL RBC 3.63 L (4.1-5.6) x10^6/uL Hgb 9.4 L (12.5-18.0) g/dL Hct 29.5 L (42-50) % MCV 81.3 (78-100) fL MCH 25.9 L (26-32) pg MCHC 31.9 L (32-36) g/dL RDW 15.0 H (11.5-14.0) % Plt Count 468 H (150-450) x10^3/uL MPV 9.5 (7.5-11.0) fL Gran % 68.6 H (36.0-66.0) % Immature Gran % (Auto) 0.8 H (0.00-0.4) % Nucleat RBC Rel Count 0.0 (0.00-0.1) % Eos # (Auto) 0.46 (0-0.5) x10^3/uL Immature Gran # (Auto) 0.09 H (0.00-0.03) x10^3u/L Absolute Lymphs (auto) 2.14 (1.0-4.6) x10^3/uL Absolute Monos (auto) 0.67 (0.0-1.3) x10^3/uL Absolute Nucleated RBC 0.00 (0.00-0.01) x10^3u/L Lymphocytes % 19.1 L (24.0-44.0) % Monocytes % 6.0 (0.0-12.0) % Eosinophils % 4.1 (0.00-5.0) % Basophils % 1.4 (0.0-0.4) % Absolute Granulocytes 7.69 H (1.4-6.9) x10^3/uL Basophils # 0.16 (0-0.4) x10^3/uL Sodium 135 (135-145) mmol/L Potassium 3.3 L (3.5-5.1) mmol/L Chloride 105 (98-107) mmol/L Carbon Dioxide 25 (22-30) mmol/L Anion Gap 8.0 (5-15) MEQ/L BUN 14 (9-20) mg/dL Creatinine 0.76 (0.66-1.25) mg/dL Estimated GFR 101.6 ML/MIN Glucose 132 H (74-106) mg/dL POC Glucometer 131 H (74 to 106) mg/dL Calcium 8.9 (8.4-10.2) mg/dL Total Bilirubin 0.80 (0.2-1.3) mg/dL AST 26 (17-59) U/L ALT 27 (0-50) U/L Alkaline Phosphatase 276 H (38-126) U/L Serum Total Protein 7.1 (6.3-8.2) g/dL Albumin 2.9 L (3.5-5.0) g/dL Radiology Exams: Radiology Procedures Category Date Time Status PICC LINE PLACEMENT Routine Exams 03/12/24 07:00 Ordered Assessment/Plan (1) Gangrene of toe of both feet Current Visit: Yes Status: Acute Assessment & Plan: S/p amputation to level of MPJ for left 2nd digit and right hallux and partial amputation of 3rd digit to level of right 3rd digit. Doing well without complication Abx vancomycin and zosyn- awaiting shoulder cultures for definitive management. toes more gangrenous in appearence but some level of OM identified on radiographs to hallux on right and left 2nd digit with chronic infection of 2nd digit. Amputations preformed and can be treated as soft tissue infection effectively if clean margins obtained at proximal extent of amputation site. pain contol DVT prophylaxis Non-weight bearing for now. Will follow with you Code(s): I96 - GANGRENE, NOT ELSEWHERE CLASSIFIED (2) Shoulder dislocation Current Visit: No Status: Acute (3) Acute CHF (congestive heart failure) Current Visit: No Status: Acute Code(s): I50.9 - HEART FAILURE, UNSPECIFIED (4) Coronary artery disease Current Visit: No Status: Chronic Code(s): I25.10 - ATHSCL HEART DISEASE OF [place] CORONARY ARTERY W/O ANG PCTRS (5) Peripheral neuropathy Current Visit: No Status: Chronic Qualifiers: Peripheral neuropathy type: polyneuropathy associated with underlying disease Qualified Code(s): G63 - Polyneuropathy in diseases classified elsewhere Code(s): G62.9 - POLYNEUROPATHY, UNSPECIFIED (6) HTN (hypertension) Current Visit: Yes Status: Acute Code(s): I10 - ESSENTIAL (PRIMARY) HYPERTENSION (7) DM (diabetes mellitus) Current Visit: No Status: Acute Qualifiers: Diabetes mellitus type: type 2 Diabetes mellitus fpc insulin use: unspecified 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
--- NOTE | 2024-03-12 08:12 | PCM.NOTE ---
ORTHO Progress Note - Progress Note ORTHO Progress Note: Minimal pain postop day 3 from right shoulder arthroscopic incision and drainage Objective: Alert and orient x 3 Right shoulder dressing with no drainage Moving fingers well with mild edema Cultures right shoulder negative so far Assessment:Doing satisfactorily from right shoulder septic arthritis Plan: Patient get PICC line today Will have Rocephin 1 g IV every 24 hours for 4 weeks at the assisted(Discussed with Dr. Lee podiatry) Return March [address] Avendano Dry dressing daily change as needed May discontinue dressing and shower on March 14 Range of motion and use of right shoulder as tolerated
[2024-03-12 08:26] LABS: INR 1.1 (0.8-3.0); PROTIME 11.9 SECONDS (9.4-12.5)
--- NOTE | 2024-03-12 10:23 | CONS ---
CONSULT DATE: 03/09/2024 REASON FOR CONSULT: Sacral ulcer. HISTORY: He has been trying to rest. Sacral decubitus was quite limited. It was inch by inch. It was about 0.5 inch deep. It is basically pink. There is no black tissue. It was very limited stage 1 ulcer. Local wound care wet to dry or other wound care per physical therapy has been ordered. I do not see anything that requires debridement at this time. At minimal a surgical consult today for a sacral decubitus.
[2024-03-12] MEDS: POTASSIUM CHLORIDE 20 mEq IN WATER 100ML 100 ML IV SCH ×2 (10:37→13:25)
[2024-03-12 12:01] VITALS: RESP 16; O2SAT 95
--- NOTE | 2024-03-12 12:51 | PCM.DS ---
Discharge Summary Date of Admission: 03/08/24 14:03 Date of Discharge: 03/12/24 Admitting Physician: DION VELEZ MD Consults: Consults on Case 03/08/24 14:03 Consult Ortho ROUTINE 03/08/24 14:23 Consult Podiatry ROUTINE 03/09/24 10:06 Consult Surgery ROUTINE Primary Care Provider: IRVING HENRY Allergies Allergies No Known Drug Allergies Allergy (Verified 12/17/23 06:22) Hospital Summary - Hospital Course Hospital Course: Mr. Hermosillo is a 64 year old male with a pmhx of dementia, TIA, CHF, AFIB (on Eliquis), HLD, PVD, DMII, anxiety, GERD, chronic indwelling catheter, and depres richy (poor historian) who presented to ED from nursing facility with a five day history of progressive swelling to the right shoulder and pain. Patient describes the pain as non-radiating, dull and aching, and "tight." Pain is aggravated with movement. Relieved with pain medications. He is rating pain 4/10 on numerical pain scale during this interview. No trauma reported. In ED patient was reported to have severe LROM to RUE. Right shoulder xray showing new anterior inferior humeral head dislocation with diffuse soft tissue swelling. Surgery was consulted (Dr. Neil) with recommendations for drainage of effusion and reduction. Drainage performed in ED and sent for cultures. Lab findings w ith normocytic anemia, elevated alk phos and procal. Urine culture with enterobacter clocae complex. Lactic acid noted as WNL. IP IP IV abx with Vancomycin and Zosyn Ortho performed right shoulder arthroscopic incision and drainage for septic arthritis. Of note, upon exam of BLE Right great toe and third toe with necrosis - left second toe with necrosis, left great toe with ulceration (healing), and left fifth toe with ulcer. Podiatry consulted and amputation 1st and 3rd digit of the right foot. amputation 2nd digit of the left foot performed. PODS # 3 s/p right shoulder arthroscopic I&D with washout for septic arthritis and amputation 1st and 3rd digit of the right foot. Amputation 2nd digit of the left foot. Patient states he is doing well. He is endorsing mild pain to right shoulder 3/10 on numerical pain scale. Bilateral feet with mild pain. Moderate purulent drainage on right shoulder surgical dressing. Gram stain with rare gram positive cocci and rods. Blood Cultures x 2 negative. BLE with surgical dressings, podiatry managing. No other complaints at this time. PICC to be placed today. Plan is to discharge back to [facility] today. Ortho and podiatry ok with plan to d/c with OP antibiotics. - Vitals & Intake/Output Vital Signs: Vital Signs Temperature 98.3 F 03/12/24 12:00 Pulse Rate 112 H 03/12/24 12:00 Respiratory Rate 16 03/12/24 12:00 Blood Pressure 118/80 03/12/24 12:00 O2 Sat by Pulse Oximetry 95 03/12/24 12:00 Intake & Output: Intake & Output 03/10/24 03/11/24 03/12/24 03/13/24 11:59 11:59 11:59 11:59 Intake Total 2170 3290 2083 Output Total 1200 6900 2350 Balance 970 -8082 -201 Weight 103.8 kg 104.5 kg 104.2 kg - Lab Result Diagrams: 03/12/24 04:45 03/12/24 04:45 Lab Results-Last 24 Hrs: Lab Results-Last 24 Hours 03/11/24 03/11/24 03/12/24 Range/Units 17:33 22:17 04:45 WBC 11.2 H (4.0-10.5) x10^3/uL RBC 3.63 L (4.1-5.6) x10^6/uL Hgb 9.4 L (12.5-18.0) g/dL Hct 29.5 L (42-50) % MCV 81.3 (78-100) fL MCH 25.9 L (26-32) pg MCHC 31.9 L (32-36) g/dL RDW 15.0 H (11.5-14.0) % Plt Count 468 H (150-450) x10^3/uL MPV 9.5 (7.5-11.0) fL Gran % 68.6 H (36.0-66.0) % Immature Gran % (Auto) 0.8 H (0.00-0.4) % Nucleat RBC Rel Count 0.0 (0.00-0.1) % Eos # (Auto) 0.46 (0-0.5) x10^3/uL Immature Gran # (Auto) 0.09 H (0.00-0.03) x10^3u/L Absolute Lymphs (auto) 2.14 (1.0-4.6) x10^3/uL Absolute Monos (auto) 0.67 (0.0-1.3) x10^3/uL Absolute Nucleated RBC 0.00 (0.00-0.01) x10^3u/L Lymphocytes % 19.1 L (24.0-44.0) % Monocytes % 6.0 (0.0-12.0) % Eosinophils % 4.1 (0.00-5.0) % Basophils % 1.4 (0.0-0.4) % Absolute Granulocytes 7.69 H (1.4-6.9) x10^3/uL Basophils # 0.16 (0-0.4) x10^3/uL PT (9.4-12.5) SECONDS INR (0.8-3.0) Sodium (135-145) mmol/L Potassium (3.5-5.1) mmol/L Chloride (98-107) mmol/L Carbon Dioxide (22-30) mmol/L Anion Gap (5-15) MEQ/L BUN (9-20) mg/dL Creatinine (0.66-1.25) mg/dL Estimated GFR ML/MIN Glucose (74-106) mg/dL POC Glucometer 147 H 156 H (74 to 106) mg/dL Calcium (8.4-10.2) mg/dL Total Bilirubin (0.2-1.3) mg/dL AST (17-59) U/L ALT (0-50) U/L Alkaline Phosphatase (38-126) U/L Serum Total Protein (6.3-8.2) g/dL Albumin (3.5-5.0) g/dL 03/12/24 03/12/24 03/12/24 Range/Units 04:45 04:45 07:23 WBC (4.0-10.5) x10^3/uL RBC (4.1-5.6) x10^6/uL Hgb (12.5-18.0) g/dL Hct (42-50) % MCV (78-100) fL MCH (26-32) pg MCHC (32-36) g/dL RDW (11.5-14.0) % Plt Count (150-450) x10^3/uL MPV (7.5-11.0) fL Gran % (36.0-66.0) % Immature Gran % (Auto) (0.00-0.4) % Nucleat RBC Rel Count (0.00-0.1) % Eos # (Auto) (0-0.5) x10^3/uL Immature Gran # (Auto) (0.00-0.03) x10^3u/L Absolute Lymphs (auto) (1.0-4.6) x10^3/uL Absolute Monos (auto) (0.0-1.3) x10^3/uL Absolute Nucleated RBC (0.00-0.01) x10^3u/L Lymphocytes % (24.0-44.0) % Monocytes % (0.0-12.0) % Eosinophils % (0.00-5.0) % Basophils % (0.0-0.4) % Absolute Granulocytes (1.4-6.9) x10^3/uL Basophils # (0-0.4) x10^3/uL PT 11.9 (9.4-12.5) SECONDS INR 1.10 (0.8-3.0) Sodium 135 (135-145) mmol/L Potassium 3.3 L (3.5-5.1) mmol/L Chloride 105 (98-107) mmol/L Carbon Dioxide 25 (22-30) mmol/L Anion Gap 8.0 (5-15) MEQ/L BUN 14 (9-20) mg/dL Creatinine 0.76 (0.66-1.25) mg/dL Estimated GFR 101.6 ML/MIN Glucose 132 H (74-106) mg/dL POC Glucometer 131 H (74 to 106) mg/dL Calcium 8.9 (8.4-10.2) mg/dL Total Bilirubin 0.80 (0.2-1.3) mg/dL AST 26 (17-59) U/L ALT 27 (0-50) U/L Alkaline Phosphatase 276 H (38-126) U/L Serum Total Protein 7.1 (6.3-8.2) g/dL Albumin 2.9 L (3.5-5.0) g/dL 03/12/24 Range/Units 11:53 WBC (4.0-10.5) x10^3/uL RBC (4.1-5.6) x10^6/uL Hgb (12.5-18.0) g/dL Hct (42-50) % MCV (78-100) fL MCH (26-32) pg MCHC (32-36) g/dL RDW (11.5-14.0) % Plt Count (150-450) x10^3/uL MPV (7.5-11.0) fL Gran % (36.0-66.0) % Immature Gran % (Auto) (0.00-0.4) % Nucleat RBC Rel Count (0.00-0.1) % Eos # (Auto) (0-0.5) x10^3/uL Immature Gran # (Auto) (0.00-0.03) x10^3u/L Absolute Lymphs (auto) (1.0-4.6) x10^3/uL Absolute Monos (auto) (0.0-1.3) x10^3/uL Absolute Nucleated RBC (0.00-0.01) x10^3u/L Lymphocytes % (24.0-44.0) % Monocytes % (0.0-12.0) % Eosinophils % (0.00-5.0) % Basophils % (0.0-0.4) % Absolute Granulocytes (1.4-6.9) x10^3/uL Basophils # (0-0.4) x10^3/uL PT (9.4-12.5) SECONDS INR (0.8-3.0) Sodium (135-145) mmol/L Potassium (3.5-5.1) mmol/L Chloride (98-107) mmol/L Carbon Dioxide (22-30) mmol/L Anion Gap (5-15) MEQ/L BUN (9-20) mg/dL Creatinine (0.66-1.25) mg/dL Estimated GFR ML/MIN Glucose (74-106) mg/dL POC Glucometer 153 H (74 to 106) mg/dL Calcium (8.4-10.2) mg/dL Total Bilirubin (0.2-1.3) mg/dL AST (17-59) U/L ALT (0-50) U/L Alkaline Phosphatase (38-126) U/L Serum Total Protein (6.3-8.2) g/dL Albumin (3.5-5.0) g/dL Micro Results-Entire Visit: Microbiology 03/08/24 12:36 Gram Stain - Final Shoulder - Right Gram Stain Result 1 - Final Gram Stain Result 2 - Final Sterile Body Fluid Culture - Final Body Fluid Culture Result 1 - Final 03/08/24 13:09 Urine Culture - Final Urine, Indwelling Catheter Enterobacter Clocae Complex 03/08/24 10:54 Blood Culture - Preliminary Blood 03/08/24 10:50 Blood Culture - Preliminary Blood 03/08/24 12:36 Gram Stain - Final Synovial Fluid Accuchecks Date 03/11/24 Time 22:00 - Radiology Exams Ordered Rad Exams-Entire Visit: Radiology Procedures Category Date Time Status PICC LINE PLACEMENT Routine Exams 03/12/24 07:00 Ordered - Procedures and Test Procedures and Tests throughout Hospitalization: Therapy Orders & Screens 03/08/24 14:05 Oxygen Nasal Cannula 2 lpm Comment: Respiratory Therapy Consult ONCE Comment: Reason For Exam: 03/08/24 14:16 PT Eval & Treat (MD Order) ONCE Reason for Eval:: weakness Diagnosis: right septic shoulder OT Eval and Treat (MD Order) ONCE Comment: Physician Instructions: Reason For Exam: Diagnosis: right septic shoulder 03/08/24 14:53 Respiratory Therapy Assessment DAILY Comment: Diagnosis: right septic shoulder 03/09/24 09:43 EKG STAT Comment: Diagnosis: right septic shoulder EKG Reason: Post Cardiac History 03/10/24 17:45 EKG STAT Comment: FREQUENT PVCS Diagnosis: right septic shoulder EKG Reason: Other Discharge Exam General Appearance: no apparent distress, alert Neurologic Exam: alert, oriented x 3, cooperative, normal mood/affect, nml cerebellar function, sensation nml, No motor deficits Eye Exam: PERRL, EOMI, eyes nml inspection Ears, Nose, Throat Exam: normal ENT inspection, pharynx normal, moist mucous membranes Neck Exam: normal inspection, non-tender, supple, full range of motion Respiratory Exam: normal breath sounds, lungs clear, No respiratory distress Cardiovascular Exam: regular rate/rhythm, normal heart sounds Gastrointestinal/Abdomen Exam: soft, No tenderness, No mass Male Genitalia Exam: deferred Rectal Exam: deferred Back Exam: normal inspection, normal range of motion, No CVA tenderness, No vertebral tenderness Extremity Exam: normal inspection, normal range of motion, joint swelling (right shoulder), other (BLLE wrapped) Skin Exam: normal color, warm, dry Wound Assessment: Skin/Wound Assessment Wound/Incision Assessment Start: 03/08/24 16:17 Text: Status: Active Freq: Q6H Protocol: Document 03/12/24 08:00 LIBERTY (Rec: 03/12/24 08:05 LIBERTY [id number]) Wound/Incision Assessment Right Shoulder Wound Assessment Shift Assessment Wound Type Incision Wound Stage Non Pressure Wound Dressing Status Dry & Intact Drainage Amount None Drainage Odor None/Absent Surrounding Tissue Edematous Primary Dressing Gauze Pads Secondary Dressing tegaderm Comment dressing in place remains CDI. Remains true Right Toe Wound Assessment Shift Assessment Wound Type Amputation Wound Stage Non Pressure Wound Dressing Status Dry & Intact Drainage Amount None Drainage Odor None/Absent Comment Digit 1 & 3, Dressing per CHEO Min. Remains true. Left Toe Wound Assessment Shift Assessment Wound Type Amputation Dressing Status Dry & Intact Drainage Amount None Comment Digit 2, Dressing per CHEO Min. Remains true. Buttock Wound Assessment Shift Assessment Wound Type Pressure Ulcer Wound Stage Stage II Drainage Amount None General Appearance Open to air Surrounding Tissue Quinton Comment BARRIER CREAM APPLIED PRN. Remains true Sacrum Wound Assessment Shift Assessment Wound Type Pressure Ulcer Wound Stage Stage II Drainage Amount None General Appearance Open to air Surrounding Tissue Quinton Comment BARRIER CREAM APPLIED PRN. Remains true. Wound Photo Photo Taken Yes Comment: in chart Final Diagnosis/Problem List - Final Discharge Diagnosis/Problem (1) Septic joint of right shoulder region Current Visit: Yes Status: Acute Code(s): M00.9 - PYOGENIC ARTHRITIS, UNSPECIFIED (2) Gangrene of toe of both feet Current Visit: Yes Status: Acute Code(s): I96 - GANGRENE, NOT ELSEWHERE CLASSIFIED (3) DM (diabetes mellitus) Current Visit: No Status: Acute Code(s): E11.9 - TYPE 2 DIABETES MELLITUS WITHOUT COMPLICATIONS (4) CHF (congestive heart failure) Current Visit: No Status: Acute Code(s): I50.9 - HEART FAILURE, UNSPECIFIED (5) Atrial fibrillation Current Visit: No Status: Acute Code(s): I48.91 - UNSPECIFIED ATRIAL FIBRILLATION (6) Sacral decubitus ulcer Current Visit: No Status: Acute Code(s): L89.159 - PRESSURE ULCER OF SACRAL REGION, UNSPECIFIED STAGE (7) UTI (urinary tract infection) Current Visit: Yes Status: Acute Code(s): N39.0 - URINARY TRACT INFECTION, SITE NOT SPECIFIED (8) HTN (hypertension) Current Visit: Yes Status: Chronic Assessment & Plan: (1) Septic joint of right shoulder region Current Visit: Yes Status: Acute Assessment & Plan: -Ortho consulted note reviewed,aspiration performed - fluid was sent to the lab for evaluation to include cultures, gram stain, cell count and crystal evaluation - plan for arthroscopic lavage 03/09/24 -Hold Eliquis -Pain control -Vanc/Zosyn -follow cultures -blood/urine/wound cultures pending 03/09: - ortho note reviewed, agree with plan for washout right shoulder -continue vanc/zosyn - cultures pending 03/10: -PODS#1, pain controlled, cultures pending, continue vanc/zosyn for now 03/11: -PODS#2, pain controlled, gram stain with gram +cocci/rods -cultures pending - continue vanc/zosyn - most likely 6 weeks of IV abx per ORTHO, PICC to be placed tomorrow - follow cultures - continue plavix/eliquis per ortho / - BC x2 negative - PODS #3 - PICC line placement - Chest XR to confirm placement - Continue OP IV antibiotics x4 weeks- Rocephin IV per ortho - case management to set up OP antibiotics Code(s): M00.9 - PYOGENIC ARTHRITIS, UNSPECIFIED (2) Gangrene of toe of both feet Current Visit: Yes Status: Acute Assessment & Plan: -Podiatry consulted, appreciate recs -arterial doppler -XRay bilateral feet 03/09:-Podiatry note reviewed, agree with plan for amputation 1st and 3rd digit of the right foot. amputation 2nd digit of the left foot 03/10:-Discussed case with podiatry -continue current abx, they will follow Code(s): I96 - GANGRENE, NOT ELSEWHERE CLASSIFIED (3) DM (diabetes mellitus) Current Visit: No Status: Acute Qualifiers: Diabetes mellitus type: type 2 Diabetes mellitus [facility] insulin use: un specified [facility] insulin use status Diabetes mellitus complication detail: with foot ulcer Assessment & Plan: -A1c 6.64- controlled -SSI humalog, accuchecks ac/hs Code(s): E11.9 - TYPE 2 DIABETES MELLITUS WITHOUT COMPLICATIONS (4) CHF (congestive heart failure) Current Visit: Yes Status: Acute Assessment & Plan: Most recent echo reviewed from 06/21/23: EF at 50% IMPRESSION: 1) LOW NORMAL CONTRACTILITY OF THE LEFT VENTRICLE. 2) MILD ASYMMETRIC LEFT VENTRICULAR HYPERTROPHY INVOLVING THE LEFT VENTRICULAR SEPTUM. 3) MILD LEFT VENTRICULAR DILATATION. 4) SEVERE LEFT ATRIAL DILATATION. 5) MILD AORTIC REGURGITATION. 6) MODERATE TO SEVERE MITRAL REGURGITATION. 7) MODERATE TRICUSPID REGURGITATION. 8) MODERATE PULMONARY HYPERTENSION. 9) MODERATE PULMONIC REGURGITATION. -Does not appear to be in exacerbation -continue home medications Code(s): I50.9 - HEART FAILURE, UNSPECIFIED (5) Atrial fibrillation Current Visit: No Status: Acute Qualifiers: Atrial fibrillation type: paroxysmal Qualified Code(s): I48.0 - Paroxysmal atrial fibrillation Assessment & Plan: -tele -Eliquis on hold for procedure scheduled for 03/09/24 -continue metoprolol 03/11/24: -continue eliquis #Sacral Ulcer, stage II -Surgery consulted 03/10- no intervention at this time Code(s): I48.91 - UNSPECIFIED ATRIAL FIBRILLATION (6) UTI (urinary tract infection) Current Visit: Yes Status: Acute Assessment & Plan: 03/10- Complex UTI - patient with indwelling catheter, could be colonization, IV abx with vanc/zosyn - follow cultures 03/11:-Ucult with enterobacter clocae complex - sensitive to zosyn will continue 03/12- OP to receive Rocephin IV - ok per sensitivity report Code(s): N39.0 - URINARY TRACT INFECTION, SITE NOT SPECIFIED (7) HTN (hypertension) Current Visit: Yes Status: Acute Assessment & Plan: -stable, continue home meds - monitor closely Code(s): I10 - ESSENTIAL (PRIMARY) HYPERTENSION - Discharge Discharge Date: 03/12/24 Disposition: Home, Self-Care Condition: Stable Prescriptions: Continue Atorvastatin Calcium [Lipitor 20MG Tablet] 20 mg PO HS Duloxetine HCl 30 mg [Cymbalta 30 MG Capsule] 30 mg PO DAILY Potassium Chloride Tab* [Klor Con] 20 meq PO DAILY Apixaban [Eliquis 2.5 mg Tablet] 5 mg PO BID Torsemide [Soaanz] 40 mg PO DAILY Clopidogrel Bisulfate [Plavix] 75 mg PO DAILY Metoprolol Succinate 25 mg Xl* [Toprol-Xl 25MG Tablets] 1 tab PO DAILY Thiamine HCl 100 mg PO DAILY Miconazole Nitrate 1 applic TOP DAILY PRN PRN Reason: Itching Melatonin 5 mg PO HS Honey [Medihoney] 1 applic TP DAILY Insulin Lispro 100 unit SQ QID Insulin Glargine [Lantus Insulin] 6 unit SQ HS Hydrocodone/Acetaminophen [Hydrocodone-Acetamin 5-325 mg] 1 tab PO Q6HPRN PRN MDD 4 PRN Reason: Pain glucagon HCL [Glucagon Emergency Kit] 1 mg IJ UD PRN PRN Reason: Hypoglycemia Sodium Phosphate,[place]-Dibasic [Fleet Enema] 133 ml RC DAILY PRN PRN Reason: Constipation Albuterol 2.5 mg/3 ml Neb [Proventil 2.5 mg/3 ml Neb] 3 ml IH Q6HPRN PRN PRN Reason: Shortness Of Breath/Wheezing Acetaminophen 325 mg [Tylenol 325 mg] 650 mg PO Q4HPRN PRN PRN Reason: Pain Ferrous Sulfate [Ferosul] 325 mg PO DAILY Amlodipine Besylate 10 mg PO DAILY Povidone-Iodine [Povidone Iodine] 1 ml TOP DAILY Follow up with: ANDREZ ROJO DPM [ACTIVE STAFF] - IRVING HENRY MD [Primary Care Provider] - LI NEIL MD [ACTIVE STAFF] - 04/05/24 10:00 am
--- NOTE | 2024-03-12 13:34 | XRAY ---
Indication: PICC line placement. Comparison: December 17, 2023 Portable chest demonstrates new left upper extremity PICC line with tip projecting over SVC. Remaining heart and lungs normal again with a few incidental tiny calcified granulomas. Bony thorax intact.
--- NOTE | 2024-03-12 13:38 | OP ---
SURGERY DATE/TIME: 03/09/2024 1028 PREOPERATIVE DIAGNOSES: 1) Gangrene toes 1 and 3 on the right foot, toe #2 on the left foot. 2) Diabetes mellitus without complication. 3) Peripheral neuropathy secondary to diabetes type II. 4) Osteomyelitis. POSTOPERATIVE DIAGNOSES: 1) Gangrene toes 1 and 3 on the right foot, toe #2 on the left foot. 2) Diabetes mellitus without complication. 3) Peripheral neuropathy secondary to diabetes type II. 4) Osteomyelitis. 5) Diabetic foot infection. PROCEDURE: Amputation to level of metatarsophalangeal joint digits 1 of the right and 2 of the left and partial amputation to proximal interphalangeal joint of digit 3 of the right. . SURGEON: Edson Fink DPM. MENTAL HEALTH ASSOCIATE: None. ANESTHESIA: General. HEMOSTASIS: Pressure dressing. QUANTITATIVE BLOOD LOSS: Approximately 5 cc. MATERIALS: 4-0 Monocryl, 3-0 Nylon. INJECTABLES: See anesthesia report for details. INDICATION FOR SURGERY: Thanh Hermosillo is a very pleasant 64-year-old male who presented from [facility] over concern of a septic right shoulder this has been managed by the orthopedic provider. However, on full body inspection, the patient was found to have multiple gangrenous digits. Discussion was held with family seemingly this has been going on for months without treatment. At this time, daughter avery is ALEIDA discussed potential risks. They were once consulted on proceeding with the removal of the toes secondary to the concern of this turning into wet gangrene and potential sepsis. X-rays were inspected determining that there osteolysis at least limited to the second digit of the left and the hallux of the right making this an infected gangrenous toe. The patient seemingly understands however daughter avery is POA understands all risks, complications and benefits of proceeding with surgical intervention at this time including but not limited to infection, hematoma, seroma, possibility of delayed wound healing, nonwound healing and possible further need for amputation. No guarantees were provided as to the outcome of surgical intervention. Plenty of time was allowed for them to ask questions, which were answered to his and her apparent satisfaction. It is with that we decided to proceed. DESCRIPTION OF PROCEDURE AND FINDINGS: The patient is brought into the OR and placed on the OR table in the supine position. At this time, general anesthesia was administered and the patient was positioned in beach chair position. Following this, Dr. Avendano performed the arthroscopy of the joint with wash out. See his report for details. Following drain placement of his procedure, the bilateral lower extremity was prepped and draped in the typical sterile fashion and lowered onto the surgical field while the patient was in supine position. At this time, incision planning took place where at the second digit a fish mouth incision was planned as well as over the hallux respecting the plantar soft tissue margins saving as much skin as possible. The third digit of the right fish mouth was planned just distal to the proximal interphalangeal joint. Utilizing the same technique, a 15 blade was utilized for all sites making full thickness incisions around the fish mouth planning perpendicular to the skin edges. Following this, undermining took place with full thickness flaps down to the metatarsophalangeal joint for the second digit of the left and the hallux of the right to the level of the metatarsophalangeal joint disarticulating the digit. At the level of the third digit, the fish mouth was followed just distal to the proximal interphalangeal joint disarticulating these digits respectively and handing them off the field. Copious amounts of sterile saline were utilized to flush the surgical site under Pulsavac. Following this, 4-0 Monocryl was then utilized the subcutaneous edges in a simple interrupted-type fashion and then 3-0 Nylon was utilized in a horizontal mattress-type fashion to queenie the skin edges. A dressing consisting of Betadine, Adaptic, 4x4, Kerlix, ABD and BEVERLY was applied to the bilateral lower extremity. The patient was reversed from anesthesia and returned to the postoperative anesthesia care unit with vital signs stable and vascular status intact. The patient handled the anesthesia as well as the procedure without significant complication. Postoperative orders as indicated in the patient's discharge chart.
[2024-03-12 16:55] VITALS: TEMP 97.8
[2024-03-12 19:19] VITALS: BP 134/87; PULSE 114
== END 2024-03-12 21:55 | DRG 504 ==
LOC: ED 09:27 → MED SURG 14:03
PROVIDERS: ADMIT Internal Medicine; ATTEND Internal Medicine
PROC: 0R9J0ZZ Drainage of Right Shoulder Joint, Open Approach (ICD-10-PCS; 2024-03-08)
PROC: 0RBJ4ZZ Excision of Right Shoulder Joint, Percutaneous Endoscopic Approach (ICD-10-PCS; principal; 2024-03-09)
PROC: 0Y6P0Z0 Detachment at Right 1st Toe, Complete, Open Approach (ICD-10-PCS; 2024-03-09)
PROC: 0Y6S0Z0 Detachment at Left 2nd Toe, Complete, Open Approach (ICD-10-PCS; 2024-03-09)
PROC: 0Y6T0Z1 Detachment at Right 3rd Toe, High, Open Approach (ICD-10-PCS; 2024-03-09)
DX: M00.9 Pyogenic arthritis, unspecified (principal); I96 Gangrene, not elsewhere classified; N39.0 Urinary tract infection, site not specified; M86.9 Osteomyelitis, unspecified; I11.0 Hypertensive heart disease with heart failure; I50.9 Heart failure, unspecified; I48.91 Unspecified atrial fibrillation; L89.152 Pressure ulcer of sacral region, stage 2; F03.90 Unspecified dementia, unspecified severity, without behavioral disturbance, psychotic disturbance, mood disturbance, and anxiety; Z79.899 Other long term (current) drug therapy; Z79.01 Long term (current) use of anticoagulants; E11.51 Type 2 diabetes mellitus with diabetic peripheral angiopathy without gangrene; E78.5 Hyperlipidemia, unspecified; K74.60 Unspecified cirrhosis of liver; R33.9 Retention of urine, unspecified; E11.69 Type 2 diabetes mellitus with other specified complication; L89.302 Pressure ulcer of unspecified buttock, stage 2; G62.9 Polyneuropathy, unspecified
CPT/HCPCS: 36000; 36415; 36573; 51702; 71045; 72170; 73030; 73200; 73630; 80048; 80053; 80202; 80323; 81001; 82947; 83605; 83735; 83880; 84134; 84145; 84550; 85025; 85027; 85610; 85652; 85730; 87040; 87070; 87075; 87077; 87086; 87186; 87205; 89051; 89060; 93005; 93922; 93925; 94760; 96365; 96368; 96374; 96375; 99204; 99285; J0171; J1100; J1817; J2270; J2405; J2704; J3010; J3260; J3370; J3480; P9604; Q3014; A9270-GY; J3475

== ENCOUNTER 2024-04-25 11:08 | Observation (INO) | payer OTHER ==
--- NOTE | 2024-04-25 11:17 | ERPHSYRPT ---
- History of Present Illness Time Seen by Provider: 04/25/24 11:16 Source: patient, EMS, old records Exam Limitations: no limitations Physician History: This is a 64-year-old white male patient of Dr. Henry who [facility] and has dementia and therefore is a poor historian and presents with recurrent and enlarging, apparent fluid collection, of the right shoulder. Patient had been on antibiotics until 04/11/2024. At that time, per [facility] notes, there has been swelling that is increased. However there was more significant swelling in the last 2 days. Patient is a poor historian and therefore additional, independent information was obtained from the [facility] staff notes and communication as well as paramedics. In addition I reviewed the patient's inpatient stay beginning 03/08/2024 in the hospital here at [facility]. Additionally, I reviewed [facility] orthopedic clinic notes. According to the orthopedic clinic notes dated 04/24/2024, the assessment and plan states history of septic right shoulder status post arthroscopy and debridement right shoulder. Further imaging is indicated since there is a chronic effusion present. They are unable to schedule the patient for MRI due to the presence of a pacemaker. Patient will be sent for an indium scan. When asked if the patient has pain in his right shoulder, he states a little bit. Patient has a history of hypertension, hyperlipidemia, COPD, atrial fibrillation, CHF, dementia, gastroesophageal reflux disease, insulin-dependent diabetes and peripheral vascular disease. Occurred: other (Chronic effusion that has worsened/increased in size) Severity of Pain-Max: mild Severity of Pain-Current: mild Extremities Pain Location: shoulder: right Modifying Factors: Improves With: movement Associated Symptoms: none Allergies/Adverse Reactions: No Known Drug Allergies Allergy (Verified 12/17/23 06:22) Home Medications: Atorvastatin Calcium [Lipitor 20MG Tablet] 20 mg PO HS 08/12/16 [History] Apixaban [Eliquis 2.5 mg Tablet] 5 mg PO BID 08/31/22 [History] Potassium Chloride Tab* [Klor Con] 20 meq PO BID 08/31/22 [History] Metoprolol Succinate 25 mg Xl* [Toprol-Xl 25MG Tablets] 1 tab PO DAILY 12/17/23 [History] Torsemide [Soaanz] 40 mg PO DAILY 12/17/23 [History] Acetaminophen 325 mg [Tylenol 325 mg] 650 mg PO Q4HPRN PRN 03/08/24 [History] Amlodipine Besylate 10 mg PO DAILY 03/08/24 [History] Ferrous Sulfate [Ferosul] 325 mg PO DAILY 03/08/24 [History] Hydrocodone/Acetaminophen [Hydrocodone-Acetamin 5-325 mg] 1 tab PO Q6HPRN PRN 03/08/24 [History] Insulin Glargine [Lantus Insulin] 6 unit SQ HS 03/08/24 [History] Insulin Lispro 100 unit SQ ACHS 03/08/24 [History] Melatonin 5 mg PO HS 03/08/24 [History] Thiamine HCl 100 mg PO DAILY 03/08/24 [History] glucagon HCL [Glucagon Emergency Kit] 1 mg SQ UD PRN 03/08/24 [History] Clopidogrel Bisulfate [PLAVIX Tablet] 1 tab PO DAILY 04/25/24 [History] Duloxetine HCl 30 mg [Cymbalta 30 MG Capsule] 30 mg PO DAILY 04/25/24 [History] Glucagon [Baqsimi] 3 mg IN DAILY PRN 04/25/24 [History] Naloxone HCl [Narcan] 4 mg IN DAILY PRN 04/25/24 [History] Hx Tetanus, Diphtheria Vaccination/Date Given: No Hx Influenza Vaccination/Date Given: No Hx Pneumococcal Vaccination/Date Given: No Travel Risk - International Travel Have you traveled outside of the country in past 3 weeks: No - Emerging Infectious Disease Are you exhibiting symptoms associated with any current EIDs: No - Review of Systems Constitutional: No Symptoms Eyes: No Symptoms Ears, Nose, & Throat: No Symptoms Respiratory: No Symptoms Cardiac: No Symptoms Abdominal/Gastrointestinal: No Symptoms Genitourinary Symptoms: No Symptoms Musculoskeletal: No Symptoms Skin: No Symptoms Neurological: No Symptoms Psychological: No Symptoms Endocrine: No Symptoms Hematologic/Lymphatic: No Symptoms Immunological/Allergic: No Symptoms All Other Systems: Reviewed and Negative - Past Medical History Pertinent Past Medical History: Yes Neurological History: Dementia, TIA ENT History: Other Cardiac History: Arrhythmia, Congestive Heart Failure, High Cholesterol, Peripheral Vascular Disease, Other Respiratory History: No Pertinent History Endocrine Medical History: Diabetes Type II Musculoskeletal History: No Pertinent History GI Medical History: Cirrhosis History: No Pertinent History Psycho-Social History: Anxiety, Depression Male Reproductive Disorders: Prostate Problems Other Medical History: R SHOULDER INSTABILITY, A FIB. Pt unable to give history - recalled from previous visit - Past Surgical History Past Surgical History: Yes Neuro Surgical History: No Pertinent History Cardiac: No Pertinent History Respiratory: No Pertinent History Gastrointestinal: No Pertinent History Genitourinary: No Pertinent History Musculoskeletal: Orthopedic Surgery Male Surgical History: No Pertinent History Other Surgical History: RIGHT shoulder. Pt unable to give history - recalled from previous visit Significant Family History: no pertinent family hx - Social History Smoking Status: Unknown if ever smoked How long have you smoked: 40 Exposure to second hand smoke: Yes Drug Use: none Patient Lives Alone: Yes - Social Determinants of Health Will the patient participate in the screening: Yes Do you worry about a steady place to live?: No In the past 12 months,have you had to go without utilities?: No Transportation Issues: No Has anyone in your support network made you feel unsafe?: No Have you or anyone in your house had to go without enough: No - Nursing Vital Signs Nursing Vital Signs: Initial Vital Signs Temperature 98.5 F 04/25/24 11:09 Pulse Rate 103 H 04/25/24 11:09 Respiratory Rate 23 04/25/24 11:09 Blood Pressure 126/94 04/25/24 11:09 O2 Sat by Pulse Oximetry 98 04/25/24 11:09 Pain Scale Pain Intensity 6 - Physical Exam General Appearance: no apparent distress, alert Eyes, Ears, Nose, Throat Exam: normal ENT inspection, moist mucous membranes Neck Exam: normal inspection, non-tender, supple, full range of motion Cardiovascular/Respiratory Exam: chest non-tender, no respiratory distress Abdominal Exam: non-tender Back Exam: normal inspection, normal range of motion, No CVA tenderness Shoulder Exam: limited ROM, swelling (Significant ballotable swelling right shoulder) Elbow/Forearm Exam: normal inspection, non-tender, no evidence of injury, normal ROM Wrist Exam: normal inspection, non-tender, no evidence of injury, normal ROM Hand Exam: normal inspection, non-tender, no evidence of injury, normal ROM Neuro/Tendon Exam: normal sensation, normal motor functions, normal tendon f unctions, responds to pain Mental Status Exam: alert, oriented x 3, cooperative Skin Exam: normal color, warm, dry SpO2 Interpretation: normal O2 Delivery: Room Air - Course Nursing assessment & vital signs reviewed: No Ordered Tests: Active Orders 24 hr Category Date Time Status IV Insertion STAT Care 04/25/24 11:31 Active Pulse Oximetry (ED) STAT Care 04/25/24 11:31 Active UPPER EXTREMITY W/O CONTRAST [CT] Stat Exams 04/25/24 11:30 Completed WHITE BLOOD CELL LIMITED AREA [NUCMED] Stat Exams 04/25/24 13:42 Ordered BLOOD CULTURE Stat Lab 04/25/24 11:40 Received CBC W DIFF Stat Lab 04/25/24 11:31 Completed CMP Stat Lab 04/25/24 11:38 Completed Lactic Acid Stat Lab 04/25/24 11:40 Completed PT INR [PROTIME WITH INR] Stat Lab 04/25/24 11:38 Completed PTT Stat Lab 04/25/24 11:38 Completed Transfer Order Routine Transfer 04/25/24 Ordered Medication Summary Generic Name Dose Route Start Last Admin Trade Name Freq PRN Reason Stop Dose Admin Vancomycin HCl 1 gm in 200 mls @ 125 mls/hr 04/25/24 13:12 04/25/24 13:16 Vancomycin 1 Gram/200 Ml Bag IV 04/25/24 14:47 125 mls/hr STAT ONE 125 mls/hr Administration Discontinued Medications Generic Name Dose Route Start Last Admin Trade Name Freq PRN Reason Stop Dose Admin Vancomycin HCl Confirm 04/25/24 13:14 Vancomycin 1 Gram/200 Ml Bag Administered 04/25/24 13:15 Dose 1 gm in 200 mls @ ud IV .STK-MED ONE Lab/Rad Data: Laboratory Result Diagrams 04/25/24 11:31 04/25/24 11:38 Laboratory Results 04/25/24 04/25/24 04/25/24 Range/Units 11:40 11:38 11:38 WBC (4.23-9.07) x10^3/uL RBC (4.63-6.08) x10^6/uL Hgb (13.7-17.5) g/dL Hct (40.1-51.0) % MCV (79.0-92.2) fL MCH (25.7-32.2) pg MCHC (32.3-36.5) g/dL RDW (11.6-14.4) % Plt Count (163-337) x10^3/uL MPV (9.4-12.4) fL Gran % (34.0-67.9) % Immature Gran % (Auto) (0.001-0.429) % Nucleat RBC Rel Count (0.00-0.2) % Eos # (Auto) (0.04-0.54) x10^3/uL Immature Gran # (Auto) (0.001-0.031) x10^3u/L Absolute Lymphs (auto) (1.32-3.57) x10^3/uL Absolute Monos (auto) (0.30-0.82) x10^3/uL Absolute Nucleated RBC (0.00-0.012) x10^3u/L Lymphocytes % (21.8-53.1) % Monocytes % (5.3-12.2) % Eosinophils % (0.8-7.0) % Basophils % (0.2-1.2) % Absolute Granulocytes (1.78-5.38) x10^3/uL Basophils # (0.01-0.08) x10^3/uL PT 12.0 (9.4-12.5) SECONDS INR 1.11 (0.8-3.0) APTT 34.7 (25.1-36.5) SECONDS Sodium 138 (135-145) mmol/L Potassium 3.4 L (3.5-5.1) mmol/L Chloride 99 (98-107) mmol/L Carbon Dioxide 29 (22-30) mmol/L Anion Gap 3.4 L (5-15) MEQ/L BUN 28 H (9-20) mg/dL Creatinine 0.91 (0.66-1.25) mg/dL Estimated GFR 95.3 ML/MIN Glucose 215 H (74-106) mg/dL Lactic Acid 1.3 (0.4-2.0) Calcium 9.0 (8.4-10.2) mg/dL Total Bilirubin 0.70 (0.2-1.3) mg/dL AST 45 (17-59) U/L ALT 27 (0-50) U/L Alkaline Phosphatase 197 H (38-126) U/L Serum Total Protein 7.4 (6.3-8.2) g/dL Albumin 3.5 (3.5-5.0) g/dL 04/25/24 Range/Units 11:31 WBC 8.0 (4.23-9.07) x10^3/uL RBC 3.87 L (4.63-6.08) x10^6/uL Hgb 10.5 L (13.7-17.5) g/dL Hct 31.9 L (40.1-51.0) % MCV 82.4 (79.0-92.2) fL MCH 27.1 (25.7-32.2) pg MCHC 32.9 (32.3-36.5) g/dL RDW 15.9 H (11.6-14.4) % Plt Count 367 H (163-337) x10^3/uL MPV 9.9 (9.4-12.4) fL Gran % 61.3 (34.0-67.9) % Immature Gran % (Auto) 0.3 (0.001-0.429) % Nucleat RBC Rel Count 0.0 (0.00-0.2) % Eos # (Auto) 0.25 (0.04-0.54) x10^3/uL Immature Gran # (Auto) 0.02 (0.001-0.031) x10^3u/L Absolute Lymphs (auto) 1.95 (1.32-3.57) x10^3/uL Absolute Monos (auto) 0.77 (0.30-0.82) x10^3/uL Absolute Nucleated RBC 0.00 (0.00-0.012) x10^3u/L Lymphocytes % 24.4 (21.8-53.1) % Monocytes % 9.6 (5.3-12.2) % Eosinophils % 3.1 (0.8-7.0) % Basophils % 1.3 H (0.2-1.2) % Absolute Granulocytes 4.91 (1.78-5.38) x10^3/uL Basophils # 0.10 H (0.01-0.08) x10^3/uL PT (9.4-12.5) SECONDS INR (0.8-3.0) APTT (25.1-36.5) SECONDS Sodium (135-145) mmol/L Potassium (3.5-5.1) mmol/L Chloride (98-107) mmol/L Carbon Dioxide (22-30) mmol/L Anion Gap (5-15) MEQ/L BUN (9-20) mg/dL Creatinine (0.66-1.25) mg/dL Estimated GFR ML/MIN Glucose (74-106) mg/dL Lactic Acid (0.4-2.0) Calcium (8.4-10.2) mg/dL Total Bilirubin (0.2-1.3) mg/dL AST (17-59) U/L ALT (0-50) U/L Alkaline Phosphatase (38-126) U/L Serum Total Protein (6.3-8.2) g/dL Albumin (3.5-5.0) g/dL - Progress Progress: unchanged Progress Note: 04/25/24 11:50 My medical decision making and the assignment of high complexity to this patient's medical issue today is based on review of the patient's past medical history, review of the patient's medication list, review of patient drug allergy list, history present illness and physical findings on examination. The workup in this patient includes placement of intravenous line, CBC, CMP, blood culture, lactic acid level, CT scan of the patient's right shoulder. Differential diagnosis includes but not limited to recurrent septic right shoulder, right shoulder chronic effusion 04/25/24 13:21 I interpreted the patient's laboratory data results. Based on the patient's laboratory data results, there are no acute, emergent findings. CT scan of the right shoulder was interpreted by the radiologist and I reviewed the impression. The impression states large multiloculated right shoulder effusion concerning for recurrent septic joint. I spoke with Dr. Plascencia, the telehospitalist, regarding this patient. I reviewed the patient's past medical history, chief complaint, results of our workup. We will place this patient in observation and obtain the indium scan orthopedic service was planning on ordering as an outpatient. We also provide him with intravenous antibiotics. Dr. Plascencia agrees with this plan. I spoke with Pamella in the radiology department and informed her that we would be ordering this test for tomorrow, 04/26/2024. Counseled pt/family regarding: lab results, diagnosis, rad results Medical Desision Making - Independent Historian Additional History obtained from: Intermediate nurse, Animal Trapper/EMT - Discussion of managment Care discussed with:: hospitalist Reviewed:: Test results, Need for additional workup Agreed on:: place in obs Will see patient: in hospital - Diagnostic Testing Diagnostic test were ordered, analyzed, and reviewed by me: Yes Radiological Interpretation: Reviewed by me - Risk of complications The pt has a high risk of morbidity or mortality based on: Decision regarding hospitilization or escalation of hosp level of care - Departure Departure Disposition: Observation Clinical Impression: Septic joint of right shoulder region Condition: Stable Critical Care Time: No Referrals: IRVING HENRY MD [Primary Care Provider] - Follow up/PCP as directed
[2024-04-25 11:39] LABS: Absolute Neutrophil Ct (ANC) 4.91 x10^3/uL (1.78-5.38); BASOPHIL % 1.3 % (0.2-1.2); Eosinophil % 3.1 % (0.8-7.0); Eosinophil (Absolute #) 0.25 x10^3/uL (0.04-0.54); Hematocrit 31.9 % (40.1-51.0); Hemoglobin 10.5 g/dL (13.7-17.5); IMMATURE GRAN # 0.02 x10^3u/L (0.001-0.031); IMMATURE GRAN % 0.3 % (0.001-0.429); Lymphocyte (Absolute #) 1.95 x10^3/uL (1.32-3.57); Lymphocytes % 24.4 % (21.8-53.1); Mean Cell Volume 82.4 fL (79.0-92.2); Mean Corpuscular Hemoglobin 27.1 pg (25.7-32.2); Mean Corpuscular Hgb Concent. 32.9 g/dL (32.3-36.5); Mean Platelet Volume 9.9 fL (9.4-12.4); Monocyte (Absolute #) 0.77 x10^3/uL (0.30-0.82); Monocytes % 9.6 % (5.3-12.2); Neutrophil % 61.3 % (34.0-67.9); Platelet Count 367 x10^3/uL (163-337); Red Blood Count 3.87 x10^6/uL (4.63-6.08); Red Cell Distribution Width 15.9 % (11.6-14.4)
[2024-04-25 11:46] LABS: ALBUMIN 3.5 g/dL (3.5-5.0); BILIRUBIN,TOTAL 0.7 mg/dL (0.2-1.3); Creatinine 1 0.91 mg/dL (0.66-1.25); EST GLOMERULAR FILTRATION RATE 95.3 ML/MIN; Potassium 3.4 mmol/L (3.5-5.1); Total Protein 7.4 g/dL (6.3-8.2)
[2024-04-25 11:48] LABS: INR 1.11 (0.8-3.0); PTT 34.7 SECONDS (25.1-36.5)
[2024-04-25 12:13] LABS: ANION GAP 3.4 MEQ/L (5-15)
--- NOTE | 2024-04-25 12:55 | XRAY ---
Indication: Swelling 1 month. Pain. Recurrent fluid collection. Status post arthroscopy with debridement. Multiple contiguous axial images obtained through the right shoulder without contrast. Sagittal and coronal reformatted images obtained. Comparison: March 08, 2024 Right shoulder articulation remains intact. Again presumed recurrent large multiloculated effusion measuring at least 14.4 x 13.5 x 11.5 cm. This previously measured 12.9 x 10.8 x 11.3 cm. Lack of IV contrast precludes further characterization. Again findings concerning for septic joint. Right axilla again demonstrates multiple prominent lymph nodes presumed reactive. Osseous structures remain demineralized. Humeral head again demonstrates tiny degenerative subcortical cysts. Again query posterior lateral humeral head Hill-Sachs deformity. Stable mild acromioclavicular degenerative arthropathy. No acute fracture or osseous destructive process. Elsewhere there remains degenerative changes throughout visualized cervical spine and mild right carotid calcifications. Visualized right lung is clear. Impression: 1. Again large multiloculated right shoulder effusion as detailed concerning for recurrent septic joint. Multiple prominent reactive axillary lymph nodes. 2. Again chronic findings including osteopenia, humeral head subcortical cysts, AC degenerative arthropathy, query Hill-Sachs deformity, cervical degenerative spondylosis, and arteriosclerotic disease.
[2024-04-25] MEDS ORDERED: VANCOMYCIN 1 GRAM/200 ML BAG 1 GM/200 ML PIGGYBACK IV ONE (13:14)
[2024-04-25] MEDS: VANCOMYCIN 1 GRAM/200 ML BAG 1 GM/200 ML PIGGYBACK IV ONE (13:16)
[2024-04-25] MEDS ORDERED: TYLENOL 325 MG PO PRN ×2 (14:06→15:12)
[2024-04-25] MEDS ORDERED: Zofran 4 MG/2 ML VIAL IV PRN (14:06)
--- NOTE | 2024-04-25 14:46 | PCM.HP ---
History of Present Illness - Chief Complaint Chief Complaint: Septic right shoulder Date: 04/25/24 History of Present Illness: is a 64 year old male with PMHX of CHF, PVD, arrhythmia. dementia, TIA, cirrhosis, type II DM, anxiety, depression, prostate problems. He is a resident at local [facility] and has dementia and therefore is a poor historian and presents with recurrent and enlarging, apparent fluid collection, of the right shoulder. Patient had been on antibiotics until 04/11/2024. At that time, per [facility] notes, there has been swelling that is increased. However there was more significant swelling in the last 2 days. 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 Notes reviewed from the patient's inpatient stay beginning 03/08/2024 in the hospital here at [facility]. Additionally, reviewed [facility] orthopedic clinic notes. According to the orthopedic clinic notes dated 04/24/2024, the assessment and plan states history of septic right shoulder status post arthroscopy and debridement right shoulder. Further imaging is indicated since there is a chronic effusion present. They are unable to schedule the patient for MRI due to the presence of a pacemaker. Patient will be sent for an indium scan. When asked if the patient has pain in his right shoulder, he states a little bit. plan was to admit for this scan however per radiology we don ot have the equipment here to do so. Antibiotics started and Ortho consulted in the ER. According to ortho further evaluation can be done OP. Will keep pt overnight and continue to evaluate progression of edema, continue antibiotics. If sxs worsen consider tx to higher level of care. Otherwise will d/c tomorrow and f/u for scan OP. - Review of Systems Constitutional: No Fever, No Chills Eyes: No Symptoms Ears, Nose, & Throat: No Symptoms Respiratory: No Cough, No Short Of Breath Cardiac: No Chest Pain, No Edema, No Syncope Abdominal/Gastrointestinal: No Abdominal Pain, No Nausea, No Vomiting, No Diarrhea Genitourinary Symptoms: No Dysuria Musculoskeletal: Joint Redness, Joint Pain, Joint Swelling (right shoulder), No Back Pain, No Neck Pain Skin: No Rash Neurological: No Dizziness, No Focal Weakness, No Sensory Changes Psychological: No Symptoms Endocrine: No Symptoms Hematologic/Lymphatic: No Symptoms Immunological/Allergic: No Symptoms Medications & Allergies Home Medications: Home Medication List Atorvastatin Calcium [Lipitor 20MG Tablet] 20 mg PO HS 08/12/16 [History Confirmed 04/25/24] Apixaban [Eliquis 2.5 mg Tablet] 5 mg PO BID 08/31/22 [History Confirmed 04/25/24] Potassium Chloride Tab* [Klor Con] 20 meq PO BID 08/31/22 [History Confirmed 04/25/24] Metoprolol Succinate 25 mg Xl* [Toprol-Xl 25MG Tablets] 25 mg PO DAILY 12/17/23 [History Confirmed 04/25/24] Torsemide [Soaanz] 40 mg PO DAILY 12/17/23 [History Confirmed 04/25/24] Acetaminophen 325 mg [Tylenol 325 mg] 650 mg PO Q4HPRN PRN 03/08/24 [History Confirmed 04/25/24] Amlodipine Besylate 10 mg PO DAILY 03/08/24 [History Confirmed 04/25/24] Ferrous Sulfate [Ferosul] 325 mg PO DAILY 03/08/24 [History Confirmed 04/25/24] Hydrocodone/Acetaminophen [Hydrocodone-Acetamin 5-325 mg] 1 tab PO Q6HPRN PRN 03/08/24 [History Confirmed 04/25/24] Insulin Glargine [Lantus Insulin] 6 unit SQ HS 03/08/24 [History Confirmed 04/25/24] Insulin Lispro 1 dose SQ ACHS PRN 03/08/24 [History Confirmed 04/25/24] Melatonin 5 mg PO HS 03/08/24 [History Confirmed 04/25/24] Thiamine HCl 100 mg PO DAILY 03/08/24 [History Confirmed 04/25/24] glucagon HCL [Glucagon Emergency Kit] 1 mg SQ UD PRN 03/08/24 [History Confirmed 04/25/24] Clopidogrel Bisulfate [PLAVIX Tablet] 1 tab PO DAILY 04/25/24 [History Confirmed 04/25/24] Duloxetine HCl 30 mg [Cymbalta 30 MG Capsule] 30 mg PO DAILY 04/25/24 [History Confirmed 04/25/24] Glucagon [Baqsimi] 3 mg IN DAILY PRN 04/25/24 [History Confirmed 04/25/24] Naloxone HCl [Narcan] 4 mg IN DAILY PRN 04/25/24 [History Confirmed 04/25/24] Allergies/Adverse Reactions: Allergies Allergy/AdvReac Type Severity Reaction Status Date / Time No Known Drug Allergies Allergy Verified 12/17/23 06:22 - Past Medical History Past Medical History: Yes Neurological History: Dementia, TIA ENT History: Other Cardiac History: Arrhythmia, Congestive Heart Failure, High Cholesterol, Peripheral Vascular Disease, Other Respiratory History: No Pertinent History Endocrine Medical History: Diabetes Type II Musculoskelatal History: No Pertinent History GI Medical History: Cirrhosis History: No Pertinent History Pyscho-Social History: Anxiety, Depression Male Reproductive Disorders: Prostate Problems Comment: R SHOULDER INSTABILITY, A FIB. Pt unable to give history - recalled from previous visit - Past Surgical History Past Surgical History: Yes Neuro Surgical History: No Pertinent History Cardiac History: No Pertinent History Respiratory Surgery: No Pertinent History GI Surgical History: No Pertinent History Genitourinary Surgical Hx: No Pertinent History Musculskeletal Surgical Hx: Orthopedic Surgery Male Surgical History: No Pertinent History Other Surgical History: RIGHT shoulder. Pt unable to give history - recalled from previous visit Significant Family History: no pertinent family hx - Social History Smoking Status: Unknown if ever smoked How long have you smoked: 40 Exposure to second hand smoke: Yes Alcohol: None Drug Use: none - Social Determinants of Health Will the patient participate in the screening: Yes Do you worry about a steady place to live?: No Do you have any problems with any of the following?: No known problems In the past 12 months,have you had to go without utilities?: No Have you or anyone in your house had to go without enough: No Transportation Issues: No Has anyone in your support network made you feel unsafe?: No Does the patient want assistance with any of the above?: No Comment: Resident at a long-term care facility locally ([facility]) - Physical Exam Vital Signs: Vital Signs - 24 hr Temp Pulse Resp BP BP Pulse Ox 04/25/24 14:37 97 04/25/24 13:30 98 H 20 130/92 98 04/25/24 13:00 114 H 23 127/87 98 04/25/24 12:50 113 H 21 95 04/25/24 12:40 102 H 23 96 04/25/24 12:35 115 H 23 99 04/25/24 12:00 123/76 04/25/24 11:33 97 04/25/24 11:30 106 H 23 111/80 95 04/25/24 11:13 107 H 23 126/94 95 04/25/24 11:09 98.5 F 103 H 23 126/94 98 General Appearance: no apparent distress, alert Neurologic Exam: alert, oriented x 3, cooperative, normal mood/affect, nml cerebellar function, nml station & gait, sensation nml, No motor deficits Eye Exam: PERRL/EOMI, eyes nml inspection Ears, Nose, Throat Exam: normal ENT inspection, TMs normal, pharynx normal, moist mucous membranes Neck Exam: normal inspection, non-tender, supple, full range of motion Respiratory Exam: normal breath sounds, lungs clear, No respiratory distress Cardiovascular Exam: regular rate/rhythm, normal heart sounds, normal peripheral pulses Gastrointestinal/Abdomen Exam: soft, normal bowel sounds, No tenderness, No mass Back Exam: normal inspection, normal range of motion, No CVA tenderness, No vertebral tenderness Extremity Exam: normal inspection, pelvis stable, joint swelling, limited range of motion, tenderness (right shoulder) Skin Exam: normal color, warm, dry, No rash Lymphatic Exam: No adenopathy Results - Labs Lab/Micro Results: Lab Results-Last 24 Hours 04/25/24 04/25/24 04/25/24 Range/Units 11:31 11:38 11:38 WBC 8.0 (4.23-9.07) x10^3/uL RBC 3.87 L (4.63-6.08) x10^6/uL Hgb 10.5 L (13.7-17.5) g/dL Hct 31.9 L (40.1-51.0) % MCV 82.4 (79.0-92.2) fL MCH 27.1 (25.7-32.2) pg MCHC 32.9 (32.3-36.5) g/dL RDW 15.9 H (11.6-14.4) % Plt Count 367 H (163-337) x10^3/uL MPV 9.9 (9.4-12.4) fL Gran % 61.3 (34.0-67.9) % Immature Gran % (Auto) 0.3 (0.001-0.429) % Nucleat RBC Rel Count 0.0 (0.00-0.2) % Eos # (Auto) 0.25 (0.04-0.54) x10^3/uL Immature Gran # (Auto) 0.02 (0.001-0.031) x10^3u/L Absolute Lymphs (auto) 1.95 (1.32-3.57) x10^3/uL Absolute Monos (auto) 0.77 (0.30-0.82) x10^3/uL Absolute Nucleated RBC 0.00 (0.00-0.012) x10^3u/L Lymphocytes % 24.4 (21.8-53.1) % Monocytes % 9.6 (5.3-12.2) % Eosinophils % 3.1 (0.8-7.0) % Basophils % 1.3 H (0.2-1.2) % Absolute Granulocytes 4.91 (1.78-5.38) x10^3/uL Basophils # 0.10 H (0.01-0.08) x10^3/uL PT 12.0 (9.4-12.5) SECONDS INR 1.11 (0.8-3.0) APTT 34.7 (25.1-36.5) SECONDS Sodium 138 (135-145) mmol/L Potassium 3.4 L (3.5-5.1) mmol/L Chloride 99 (98-107) mmol/L Carbon Dioxide 29 (22-30) mmol/L Anion Gap 3.4 L (5-15) MEQ/L BUN 28 H (9-20) mg/dL Creatinine 0.91 (0.66-1.25) mg/dL Estimated GFR 95.3 ML/MIN Glucose 215 H (74-106) mg/dL Lactic Acid (0.4-2.0) Calcium 9.0 (8.4-10.2) mg/dL Total Bilirubin 0.70 (0.2-1.3) mg/dL AST 45 (17-59) U/L ALT 27 (0-50) U/L Alkaline Phosphatase 197 H (38-126) U/L Serum Total Protein 7.4 (6.3-8.2) g/dL Albumin 3.5 (3.5-5.0) g/dL 04/25/24 Range/Units 11:40 WBC (4.23-9.07) x10^3/uL RBC (4.63-6.08) x10^6/uL Hgb (13.7-17.5) g/dL Hct (40.1-51.0) % MCV (79.0-92.2) fL MCH (25.7-32.2) pg MCHC (32.3-36.5) g/dL RDW (11.6-14.4) % Plt Count (163-337) x10^3/uL MPV (9.4-12.4) fL Gran % (34.0-67.9) % Immature Gran % (Auto) (0.001-0.429) % Nucleat RBC Rel Count (0.00-0.2) % Eos # (Auto) (0.04-0.54) x10^3/uL Immature Gran # (Auto) (0.001-0.031) x10^3u/L Absolute Lymphs (auto) (1.32-3.57) x10^3/uL Absolute Monos (auto) (0.30-0.82) x10^3/uL Absolute Nucleated RBC (0.00-0.012) x10^3u/L Lymphocytes % (21.8-53.1) % Monocytes % (5.3-12.2) % Eosinophils % (0.8-7.0) % Basophils % (0.2-1.2) % Absolute Granulocytes (1.78-5.38) x10^3/uL Basophils # (0.01-0.08) x10^3/uL PT (9.4-12.5) SECONDS INR (0.8-3.0) APTT (25.1-36.5) SECONDS Sodium (135-145) mmol/L Potassium (3.5-5.1) mmol/L Chloride (98-107) mmol/L Carbon Dioxide (22-30) mmol/L Anion Gap (5-15) MEQ/L BUN (9-20) mg/dL Creatinine (0.66-1.25) mg/dL Estimated GFR ML/MIN Glucose (74-106) mg/dL Lactic Acid 1.3 (0.4-2.0) Calcium (8.4-10.2) mg/dL Total Bilirubin (0.2-1.3) mg/dL AST (17-59) U/L ALT (0-50) U/L Alkaline Phosphatase (38-126) U/L Serum Total Protein (6.3-8.2) g/dL Albumin (3.5-5.0) g/dL - Radiology Impressions Radiology Exams & Impressions: Radiology Procedures Category Date Time Status UPPER EXTREMITY W/O CONTRAST [CT] Stat Exams 04/25/24 11:30 Completed WHITE BLOOD CELL LIMITED AREA [NUCMED] Stat Exams 04/25/24 13:42 Stop Req WHITE BLOOD CELL LIMITED AREA [NUCMED] Stat Exams 04/25/24 14:06 Ordered Assessment/Plan (1) Septic joint of right shoulder region Current Visit: Yes Status: Acute Assessment & Plan: -CT right shoulder: Impression: 1. Again large multiloculated right shoulder effusion as detailed concerning for recurrent septic joint. Multiple prominent reactive axillary lymph nodes. 2. Again chronic findings including osteopenia, humeral head subcortical cysts, AC degenerative arthropathy, query Hill-Sachs deformity, cervical degenerative spondylosis, and arteriosclerotic disease. - ortho consult - Nuc med scan ordered- unable to do this per radilogy as we do not have the equipment at this facility - Consider tx to higher level of care vs. being rodriguez OP - Continue IV antibiotics - ICE packs PRN - Pain control- narcotic Code(s): M00.9 - PYOGENIC ARTHRITIS, UNSPECIFIED (2) Hypokalemia Current Visit: Yes Status: Acute Assessment & Plan: - K+ 3.4 replaced- trend Code(s): E87.6 - HYPOKALEMIA (3) CHF (congestive heart failure) Current Visit: No Status: Chronic Qualifiers: Assessment & Plan: - no recent echo to review. - not in acute exacerbation. - continue home meds - Tele Code(s): I50.9 - HEART FAILURE, UNSPECIFIED (4) HTN (hypertension) Current Visit: No Status: Chronic Assessment & Plan: - well controlled - continue home meds Code(s): I10 - ESSENTIAL (PRIMARY) HYPERTENSION (5) Obesity (BMI 30.0-34.9) Current Visit: Yes Status: Chronic Assessment & Plan: - advised ADA diet and exercise control Code(s): E66.9 - OBESITY, UNSPECIFIED (6) Type II diabetes mellitus Current Visit: Yes Status: Chronic Qualifiers: Diabetes mellitus assisted insulin use: without lobsterman use Assessment & Plan: - Controlled - A1C 6.64 02-22-24 - Telemedicine Encounter - Telemedicine Encounter Telemedicine Encounter: "The entirety of this encounter was performed via Telemedicine" This visit was performed using real-time audio and video connection between my location and thepatients locationwith the assistance of a surrogateat the patients location. Written or verbal consent was obtained from the p atient/guardian to perform this visit usingsynchronoustelemedicine technology. Any patient questions regarding the telemedicine interaction were answered.
[2024-04-25] MEDS ORDERED: NON-FORMULARY ITEM (Glucagon [Baqsimi] 3 MG Spray) IN PRN (15:12)
[2024-04-25] MEDS ORDERED: NON-FORMULARY ITEM (Naloxone Hcl [Narcan] 4 MG Spray) IN PRN (15:12)
[2024-04-25] MEDS: PHARMACY DOSING REQUIRED: VANCOMYCIN IV STA (15:36)
[2024-04-25] MEDS ORDERED: MEDICATION INTERVENTION MC SCH ×2 (15:45)
[2024-04-25] MEDS: VANCOMYCIN 2 GRAM/400 ML BAG 2 GM/400 ML PIGGYBACK IV SCH (15:46)
[2024-04-25] MEDS: Sodium Chloride 0.9% 1000 ML 1,000 ML IV SCH (16:04)
[2024-04-25] MEDS: Klor Con PO SCH ×2 (16:07→22:19)
[2024-04-25] MEDS: NORCO 5/325 MG PO PRN (17:02)
[2024-04-25 18:14] LABS: ADD URINE CULTURE? ORDERED SEPARATELY (NO); Appearance Cloudy (Clear); Bacteria Few /HPF (None Seen); Bilirubin Negative (Negative); Blood Large (Negative); Epithelial Cells None Seen /HPF (None Seen); Glucose, Urine Negative (Negative); Hyaline Casts 20-50 /LPF (0-2); Ketones Negative (Negative); Leukocyte Esterase Moderate (Negative); Nitrite Negative (Negative); Ph 5.5 (4.6-8.0); Protein,Urine Dip 100 (Negative); RBC >100 /HPF (0-5); Specific Gravity 1.015 (1.005-1.030); WBC 51-100 /HPF (0-5)
[2024-04-25] MEDS: MELATONIN PO SCH (21:19)
[2024-04-25] MEDS: ZOCOR 20MG PO SCH (21:19)
[2024-04-25] MEDS: VANCOMYCIN 1 GRAM/200 ML BAG 1 GM/200 ML PIGGYBACK IV SCH (21:19)
[2024-04-25] MEDS: ELIQUIS 2.5 MG TABLET PO SCH (21:19)
[2024-04-25] MEDS: HUMALOG SQ PRN (22:20)
[2024-04-25] MEDS: Lantus Insulin SQ SCH (22:20)
[2024-04-26 04:57] LABS: Hematocrit 32.4 % (40.1-51.0); Hemoglobin 10.4 g/dL (13.7-17.5); Mean Cell Volume 84.2 fL (79.0-92.2); Mean Corpuscular Hgb Concent. 32.1 g/dL (32.3-36.5); Mean Platelet Volume 9.7 fL (9.4-12.4); Platelet Count 374 x10^3/uL (163-337); Red Blood Count 3.85 x10^6/uL (4.63-6.08); Red Cell Distribution Width 16.2 % (11.6-14.4); White Blood Count 7.9 x10^3/uL (4.23-9.07)
[2024-04-26 05:31] LABS: ALBUMIN 3.2 g/dL (3.5-5.0); ANION GAP 11.9 MEQ/L (5-15); BILIRUBIN,TOTAL 0.9 mg/dL (0.2-1.3); Creatinine 1 0.83 mg/dL (0.66-1.25); PREALBUMIN 7.87 mg/dL (17.6-36.0); Potassium 3.7 mmol/L (3.5-5.1); Total Protein 6.8 g/dL (6.3-8.2)
[2024-04-26] MEDS: DEMADEX 20 MG PO SCH (10:26)
[2024-04-26] MEDS: NORVASC 5 MG PO SCH (10:26)
[2024-04-26] MEDS: Toprol-Xl 25MG Tablets PO SCH (10:26)
[2024-04-26] MEDS: ROCEPHIN 1 GM / 100 ML NaCl 1 GM/100 ML IVPB IV SCH (10:27)
[2024-04-26] MEDS: FEOSOL 325 MG PO SCH (10:27)
[2024-04-26] MEDS: VITAMIN B-1 100 MG PO SCH (10:27)
[2024-04-26] MEDS: PLAVIX Tablet PO SCH (10:27)
[2024-04-26] MEDS: Cymbalta 30 MG Capsule PO SCH (10:27)
[2024-04-26 11:46] VITALS: BP 125/86; PULSE 98; RESP 13; TEMP 97.5; O2SAT 96
--- NOTE | 2024-04-26 13:28 | PCM.DS ---
Discharge Summary Date of Admission: 04/25/24 14:03 Date of Discharge: 04/25/24 Admitting Physician: RAMO PAZ MD Consults: Consults on Case 04/25/24 14:06 Consult Ortho ROUTINE Primary Care Provider: IRVING HENRY KAMRAN Allergies Allergies No Known Drug Allergies Allergy (Verified 12/17/23 06:22) Hospital Summary - Hospital Course Hospital Course: 04/25/24 is a 64 year old male with PMHX of CHF, PVD, arrhythmia. dementia, TIA, cirrhosis, type II DM, anxiety, depression, prostate problems. [facility] and has dementia and therefore is a poor histo kristine and presents with recurrent and enlarging, apparent fluid collection, of the right shoulder. Patient had been on antibiotics until 04/11/2024. At that time, per [facility] notes, there has been swelling that is increased. However there was more significant swelling in the last 2 days. Patient is a poor historian and therefore additional, independent information was obtained from the [facility] staff notes and communication as well as paramedics. Notes reviewed from the patient's inpatient stay beginning 03/08/2024 in the hospital here at [facility]. Additionally, reviewed [facility] orthopedic clinic notes. According to the orthopedic clinic notes date d 04/24/2024, the assessment and plan states history of septic right shoulder status post arthroscopy and debridement right shoulder. Further imaging is indicated since there is a chronic effusion present. They are unable to schedule the patient for MRI due to the presence of a pacemaker. Patient will be sent for an indium scan. When asked if the patient has pain in his right shoulder, he states a little bit. plan was to admit for this scan however per radiology we don ot have the equipment here to do so. Antibiotics started and Ortho consulted in the ER. According to ortho further evaluation can be done OP. Will keep pt overnight and continue to evaluate progression of edema, continue a ntibiotics. If sxs worsen consider tx to higher level of care. Otherwise will d/c tomorrow and f/u for scan OP. 04/26/24 Pt resting in bed. He continues to have right shoulder edema with some slight e rythema. He has been refusing ice packs and only wants pain medication. He is scheduled for an OP scan at [facility] next as we we not have the equipment here to do what is needed. Ortho has set this up to be done OP. Ortho evaluated pt today and explained there is not more he can do at this time until scan is done and it is ok to wait until time of scan. From Ortho standpoint pt can d/c back to [facility] today. Should pt have increase in size, fevers, or decreased ROM then Ortho should be consulted again or come back to ER. UA + for UTI and Rocephin started. UC gram negative and sensitivity pending. Will continue to follow OP. Will continue Op antibiotics. He denies CP, SOB, abd. pain, N/V/D. - Vitals & Intake/Output Vital Signs: Vital Signs Temperature 97.5 F 04/26/24 11:45 Pulse Rate 98 H 04/26/24 11:45 Respiratory Rate 13 04/26/24 11:45 Blood Pressure 125/86 04/26/24 11:45 O2 Sat by Pulse Oximetry 96 04/26/24 11:45 Intake & Output: Intake & Output 04/24/24 04/25/24 04/26/24 04/27/24 11:59 11:59 11:59 11:59 Intake Total 2190 Output Total 3950 Balance -1760 Weight 111 kg 108.1 kg - Lab Result Diagrams: 04/26/24 04:44 04/26/24 04:44 Lab Results-Last 24 Hrs: Lab Results-Last 24 Hours 04/25/24 04/25/24 04/25/24 Range/Units 11:38 16:43 16:58 WBC (4.23-9.07) x10^3/uL RBC (4.63-6.08) x10^6/uL Hgb (13.7-17.5) g/dL Hct (40.1-51.0) % MCV (79.0-92.2) fL MCH (25.7-32.2) pg MCHC (32.3-36.5) g/dL RDW (11.6-14.4) % Plt Count (163-337) x10^3/uL MPV (9.4-12.4) fL Sodium (135-145) mmol/L Potassium (3.5-5.1) mmol/L Chloride (98-107) mmol/L Carbon Dioxide (22-30) mmol/L Anion Gap (5-15) MEQ/L BUN (9-20) mg/dL Creatinine (0.66-1.25) mg/dL Estimated GFR ML/MIN Glucose (74-106) mg/dL POC Glucometer 140 H (74 to 106) mg/dL Calcium (8.4-10.2) mg/dL Magnesium 1.5 L (1.6-2.3) mg/dL Total Bilirubin (0.2-1.3) mg/dL AST (17-59) U/L ALT (0-50) U/L Alkaline Phosphatase (38-126) U/L Serum Total Protein (6.3-8.2) g/dL Albumin (3.5-5.0) g/dL Prealbumin (17.6-36.0) mg/dL Urine Color Yellow (Yellow) Urine Appearance Cloudy A (Clear) Urine pH 5.5 (4.6-8.0) Ur Specific [place] 1.015 (1.005-1.030) Urine Protein 100 A (Negative) Urine Glucose (UA) Negative (Negative) mg/dL Urine Ketones Negative (Negative) Urine Blood Large A (Negative) Urine Nitrite Negative (Negative) Urine Bilirubin Negative (Negative) Urine Urobilinogen 1.0 A (0.2) mg/dL Ur Leukocyte Esterase Moderate A (Negative) U Hyaline Cast (Auto) 20-50 (0-2) /LPF Urine Microscopic RBC >100 A (0-5) /HPF Urine Microscopic WBC 51-100 A (0-5) /HPF Ur Epithelial Cells None Seen (None Seen) /HPF Urine Bacteria Few A (None Seen) /HPF Urine Culture Reflexed ORDERED SEPARATELY (NO) 04/25/24 04/25/24 04/26/24 Range/Units 22:10 23:35 04:44 WBC 7.9 (4.23-9.07) x10^3/uL RBC 3.85 L (4.63-6.08) x10^6/uL Hgb 10.4 L (13.7-17.5) g/dL Hct 32.4 L (40.1-51.0) % MCV 84.2 (79.0-92.2) fL MCH 27.0 (25.7-32.2) pg MCHC 32.1 L (32.3-36.5) g/dL RDW 16.2 H (11.6-14.4) % Plt Count 374 H (163-337) x10^3/uL MPV 9.7 (9.4-12.4) fL Sodium (135-145) mmol/L Potassium 3.6 (3.5-5.1) mmol/L Chloride (98-107) mmol/L Carbon Dioxide (22-30) mmol/L Anion Gap (5-15) MEQ/L BUN (9-20) mg/dL Creatinine (0.66-1.25) mg/dL Estimated GFR ML/MIN Glucose (74-106) mg/dL POC Glucometer 162 H (74 to 106) mg/dL Calcium (8.4-10.2) mg/dL Magnesium (1.6-2.3) mg/dL Total Bilirubin (0.2-1.3) mg/dL AST (17-59) U/L ALT (0-50) U/L Alkaline Phosphatase (38-126) U/L Serum Total Protein (6.3-8.2) g/dL Albumin (3.5-5.0) g/dL Prealbumin (17.6-36.0) mg/dL Urine Color (Yellow) Urine Appearance (Clear) Urine pH (4.6-8.0) Ur Specific [place] (1.005-1.030) Urine Protein (Negative) Urine Glucose (UA) (Negative) mg/dL Urine Ketones (Negative) Urine Blood (Negative) Urine Nitrite (Negative) Urine Bilirubin (Negative) Urine Urobilinogen (0.2) mg/dL Ur Leukocyte Esterase (Negative) U Hyaline Cast (Auto) (0-2) /LPF Urine Microscopic RBC (0-5) /HPF Urine Microscopic WBC (0-5) /HPF Ur Epithelial Cells (None Seen) /HPF Urine Bacteria (None Seen) /HPF Urine Culture Reflexed (NO) 04/26/24 04/26/24 04/26/24 Range/Units 04:44 04:44 07:01 WBC (4.23-9.07) x10^3/uL RBC (4.63-6.08) x10^6/uL Hgb (13.7-17.5) g/dL Hct (40.1-51.0) % MCV (79.0-92.2) fL MCH (25.7-32.2) pg MCHC (32.3-36.5) g/dL RDW (11.6-14.4) % Plt Count (163-337) x10^3/uL MPV (9.4-12.4) fL Sodium 138 (135-145) mmol/L Potassium 3.7 (3.5-5.1) mmol/L Chloride 102 (98-107) mmol/L Carbon Dioxide 28 (22-30) mmol/L Anion Gap 11.9 (5-15) MEQ/L BUN 24 H (9-20) mg/dL Creatinine 0.83 (0.66-1.25) mg/dL Estimated GFR 99.0 ML/MIN Glucose 120 H (74-106) mg/dL POC Glucometer 103 (74 to 106) mg/dL Calcium 9.0 (8.4-10.2) mg/dL Magnesium 1.6 (1.6-2.3) mg/dL Total Bilirubin 0.90 (0.2-1.3) mg/dL AST 39 (17-59) U/L ALT 28 (0-50) U/L Alkaline Phosphatase 246 H (38-126) U/L Serum Total Protein 6.8 (6.3-8.2) g/dL Albumin 3.2 L (3.5-5.0) g/dL Prealbumin 7.87 L (17.6-36.0) mg/dL Urine Color (Yellow) Urine Appearance (Clear) Urine pH (4.6-8.0) Ur Specific [place] (1.005-1.030) Urine Protein (Negative) Urine Glucose (UA) (Negative) mg/dL Urine Ketones (Negative) Urine Blood (Negative) Urine Nitrite (Negative) Urine Bilirubin (Negative) Urine Urobilinogen (0.2) mg/dL Ur Leukocyte Esterase (Negative) U Hyaline Cast (Auto) (0-2) /LPF Urine Microscopic RBC (0-5) /HPF Urine Microscopic WBC (0-5) /HPF Ur Epithelial Cells (None Seen) /HPF Urine Bacteria (None Seen) /HPF Urine Culture Reflexed (NO) 04/26/24 Range/Units 11:38 WBC (4.23-9.07) x10^3/uL RBC (4.63-6.08) x10^6/uL Hgb (13.7-17.5) g/dL Hct (40.1-51.0) % MCV (79.0-92.2) fL MCH (25.7-32.2) pg MCHC (32.3-36.5) g/dL RDW (11.6-14.4) % Plt Count (163-337) x10^3/uL MPV (9.4-12.4) fL Sodium (135-145) mmol/L Potassium (3.5-5.1) mmol/L Chloride (98-107) mmol/L Carbon Dioxide (22-30) mmol/L Anion Gap (5-15) MEQ/L BUN (9-20) mg/dL Creatinine (0.66-1.25) mg/dL Estimated GFR ML/MIN Glucose (74-106) mg/dL POC Glucometer 151 H (74 to 106) mg/dL Calcium (8.4-10.2) mg/dL Magnesium (1.6-2.3) mg/dL Total Bilirubin (0.2-1.3) mg/dL AST (17-59) U/L ALT (0-50) U/L Alkaline Phosphatase (38-126) U/L Serum Total Protein (6.3-8.2) g/dL Albumin (3.5-5.0) g/dL Prealbumin (17.6-36.0) mg/dL Urine Color (Yellow) Urine Appearance (Clear) Urine pH (4.6-8.0) Ur Specific [place] (1.005-1.030) Urine Protein (Negative) Urine Glucose (UA) (Negative) mg/dL Urine Ketones (Negative) Urine Blood (Negative) Urine Nitrite (Negative) Urine Bilirubin (Negative) Urine Urobilinogen (0.2) mg/dL Ur Leukocyte Esterase (Negative) U Hyaline Cast (Auto) (0-2) /LPF Urine Microscopic RBC (0-5) /HPF Urine Microscopic WBC (0-5) /HPF Ur Epithelial Cells (None Seen) /HPF Urine Bacteria (None Seen) /HPF Urine Culture Reflexed (NO) Micro Results-Entire Visit: Microbiology 04/25/24 16:43 Urine Culture - Preliminary Urine, Indwelling Catheter GRAM NEGATIVE ID AND SENSITIVITY PENDING Accuchecks Date 04/26/24 Date 04/26/24 Date 04/25/24 Time 17:39 - Radiology Exams Ordered Rad Exams-Entire Visit: Radiology Procedures Category Date Time Status UPPER EXTREMITY W/O CONTRAST [CT] Stat Exams 04/25/24 11:30 Completed Discharge Exam General Appearance: no apparent distress, alert Neurologic Exam: alert, oriented x 3, cooperative, normal mood/affect, nml cerebellar function, sensation nml, No motor deficits Eye Exam: PERRL, EOMI, eyes nml inspection Ears, Nose, Throat Exam: normal ENT inspection, pharynx normal, moist mucous membranes Neck Exam: normal inspection, non-tender, supple, full range of motion Respiratory Exam: normal breath sounds, lungs clear, No respiratory distress Cardiovascular Exam: regular rate/rhythm, normal heart sounds Gastrointestinal/Abdomen Exam: soft, No tenderness, No mass Male Genitalia Exam: deferred Rectal Exam: deferred Back Exam: normal inspection, normal range of motion, No CVA tenderness, No vertebral tenderness Extremity Exam: normal inspection, normal range of motion, inflammation, limited range of motion (Right shoulder), swelling, tenderness Skin Exam: normal color, warm, dry Wound Assessment: Skin/Wound Assessment Wound/Incision Assessment Start: 04/25/24 14:55 Text: Status: Active Freq: Q6H Protocol: Document 04/26/24 12:00 RF (Rec: 04/26/24 12:08 RF [id number]) Wound Photo Photo Taken No Final Diagnosis/Problem List - Final Discharge Diagnosis/Problem (1) Septic joint of right shoulder region Current Visit: Yes Status: Acute Code(s): M00.9 - PYOGENIC ARTHRITIS, UNSPECIFIED (2) Hypokalemia Current Visit: Yes Status: Resolved Code(s): E87.6 - HYPOKALEMIA (3) CHF (congestive heart failure) Current Visit: No Status: Chronic Code(s): I50.9 - HEART FAILURE, UNSPECIFIED (4) HTN (hypertension) Current Visit: No Status: Chronic Code(s): I10 - ESSENTIAL (PRIMARY) HYPERTENSION (5) Obesity (BMI 30.0-34.9) Current Visit: Yes Status: Chronic Code(s): E66.9 - OBESITY, UNSPECIFIED (6) Type II diabetes mellitus Current Visit: Yes Status: Chronic Assessment & Plan: (1) Septic joint of right shoulder region Current Visit: Yes Status: Acute Assessment & Plan: -CT right shoulder: Impression: 1. Again large multiloculated right shoulder effusion as detailed concerning for recurrent septic joint. Multiple prominent reactive axillary lymph nodes. 2. Again chronic findings including osteopenia, humeral head subcortical cysts, AC degenerative arthropathy, query Hill-Sachs deformity, cervical degenerative spondylosis, and arteriosclerotic disease. - ortho consult - Nuc med scan ordered- unable to do this per radilogy as we do not have the equipment at this facility - Consider tx to higher level of care vs. being rodriguez OP - Continue IV antibiotics - ICE packs PRN - Pain control- narcotic medication 04/26 - refusing ice packs - Ortho ok with d/c, f/u for OP scan at [place] - F/u with ortho OP as scheduled. - WBC 7.9 normal, no fever - BC x2 pending Code(s): M00.9 - PYOGENIC ARTHRITIS, UNSPECIFIED (2) Hypokalemia Current Visit: Yes Status: Acute Assessment & Plan: - K+ 3.4 replaced- trend 04/26 - resolved Code(s): E87.6 - HYPOKALEMIA (3) CHF (congestive heart failure) Current Visit: No Status: Chronic Qualifiers: Assessment & Plan: - no recent echo to review. - not in acute exacerbation. - continue home meds - Tele Code(s): I50.9 - HEART FAILURE, UNSPECIFIED (4) HTN (hypertension) Current Visit: No Status: Chronic Assessment & Plan: - well controlled - continue home meds Code(s): I10 - ESSENTIAL (PRIMARY) HYPERTENSION (5) Obesity (BMI 30.0-34.9) Current Visit: Yes Status: Chronic Assessment & Plan: - advised ADA diet and exercise control Code(s): E66.9 - OBESITY, UNSPECIFIED (6) Type II diabetes mellitus Current Visit: Yes Status: Chronic Qualifiers: Diabetes mellitus mark up designer insulin use: without mark up designer use Assessment & Plan: - Controlled - A1C 6.64, 5-15-24 (7) Urinary tract infection Current Visit: Yes Status: Acute Assessment & Plan: - Ceftriaxone IV - UC gram negative, Sensitivity pending Code(s): N39.0 - URINARY TRACT INFECTION, SITE NOT SPECIFIED - Discharge Discharge Date: 04/26/24 Disposition: Home, Self-Care Condition: Stable Prescriptions: Continue Atorvastatin Calcium [Lipitor 20MG Tablet] 20 mg PO HS Potassium Chloride Tab* [Klor Con] 20 meq PO BID Apixaban [Eliquis 2.5 mg Tablet] 5 mg PO BID Torsemide [Soaanz] 40 mg PO DAILY Metoprolol Succinate 25 mg Xl* [Toprol-Xl 25MG Tablets] 25 mg PO DAILY Thiamine HCl 100 mg PO DAILY Melatonin 5 mg PO HS Insulin Lispro 1 dose SQ ACHS PRN PRN Reason: Hyperglycemia Insulin Glargine [Lantus Insulin] 6 unit SQ HS Hydrocodone/Acetaminophen [Hydrocodone-Acetamin 5-325 mg] 1 tab PO Q6HPRN PRN PRN Reason: Pain glucagon HCL [Glucagon Emergency Kit] 1 mg SQ UD PRN PRN Reason: Hypoglycemia Acetaminophen 325 mg [Tylenol 325 mg] 650 mg PO Q4HPRN PRN PRN Reason: Pain Ferrous Sulfate [Ferosul] 325 mg PO DAILY Amlodipine Besylate 10 mg PO DAILY Naloxone HCl [Narcan] 4 mg IN DAILY PRN PRN Reason: opiate overdose Glucagon [Baqsimi] 3 mg IN DAILY PRN PRN Reason: Hypoglycemia Duloxetine HCl 30 mg [Cymbalta 30 MG Capsule] 30 mg PO DAILY Clopidogrel Bisulfate [PLAVIX Tablet] 1 tab PO DAILY Follow up with: IRVING HENRY MD [Primary Care Provider] -
[2024-04-26] MEDS: TROUGH DRUG LEVELS IJ ONE (13:40)
--- NOTE | 2024-04-27 11:32 | CONS ---
CONSULTATION HISTORY: The patient was admitted to the hospital from the emergency room yesterday afternoon after I had spoken to the emergency room and informed them that the patient is under a current workup for his issue in his right shoulder, which is chronic, and that he could be worked up as an outpatient. He was subsequently admitted anyway and an orthopedic consultation was then requested. The patient was seen and examined. His chart was reviewed. The patient states that his shoulder is hurting no more than it did on Tuesday when he was seen here in the office on 04/24/2024, and it had not changed since he was seen by our nurse practitioner while the patient was at [facility]. The patient is currently under the care of Dr. Avendano. The patient is currently eating his lunch, thus, would not be a candidate for surgery today if it would even be necessary. Concern was a possible septic shoulder; however, the patient has had the shoulder aspirated and an arthroscopy which grew no bacteria. PHYSICAL EXAMINATION: VITAL SIGNS: His temperature is afebrile and has been since his admission. His blood pressure is normal, and his pulse is about 90. EXTREMITIES: There is an effusion in the right shoulder. There is limited motion secondary to a chronic rotator cuff tear and the above-noted effusion. There is no significant tenderness to palpation on the shoulder. The skin shows no significant erythema. His old wounds are well healed. LABORATORY DATA: His labs show that his white count is 7.9. His sed rate has not changed from previous sed rates at about 95. The patient did recently have 2 gangrene toes amputated and this may be the cause of his elevated sed rate. IMAGING: He did have a CT scan performed on 04/25/2024, which shows the effusion. It does not definitely show any evidence of an osteomyelitis. IMPRESSION: Effusion right shoulder, chronic, most likely due to gouty arthropathy. RECOMMENDATIONS: The patient is currently in the middle of a workup for his shoulder. He has an indium scan scheduled as an outpatient on 05/03/2024. He also has an appointment to see his previous treating surgeon, Dr. Avendano, following the indium scan for further treatment. I would also say the patient can be worked up as an outpatient and should be returned to the long-term and can be followed as an outpatient in our clinic as per the above-noted recommendations.
== END 2024-04-26 14:56 ==
LOC: ED 11:08 → MED SURG 14:03
PROVIDERS: ADMIT Internal Medicine; ATTEND Internal Medicine
DX: M00.9 Pyogenic arthritis, unspecified (principal); E87.6 Hypokalemia; I11.0 Hypertensive heart disease with heart failure; I50.9 Heart failure, unspecified; E66.9 Obesity, unspecified; E11.9 Type 2 diabetes mellitus without complications; N39.0 Urinary tract infection, site not specified; I73.9 Peripheral vascular disease, unspecified; F03.90 Unspecified dementia, unspecified severity, without behavioral disturbance, psychotic disturbance, mood disturbance, and anxiety; E78.5 Hyperlipidemia, unspecified; Z79.899 Other long term (current) drug therapy; Z86.73 Personal history of transient ischemic attack (TIA), and cerebral infarction without residual deficits; Z79.01 Long term (current) use of anticoagulants
CPT/HCPCS: 36000; 36415; 73200; 80053; 80202; 81001; 82947; 83605; 83735; 84132; 84134; 85025; 85027; 85610; 85730; 87040; 87077; 87086; 87186; 93268; 94760; 96365; 99285; G0378; Q3014; 99221; J0696; J1817; A9270-GY; J3370

== ENCOUNTER 2024-11-01 21:33 | Emergency (ER) | payer OTHER ==
[2024-11-01 21:51] VITALS: TEMP 96.8
[2024-11-01 22:50] LABS: Appearance Cloudy (Clear); Bacteria Rare /HPF (None Seen); Bilirubin Negative (Negative); Blood Small (Negative); Epithelial Cells None Seen /HPF (None Seen); Glucose, Urine 500 mg/dL (Negative); Hyaline Casts NONE SEEN /LPF (0-2); Ketones Negative (Negative); Leukocyte Esterase Large (Negative); Nitrite Negative (Negative); Protein,Urine Dip 300 (Negative); RBC 21-50 /HPF (0-5); Urobilinogen 0.2 mg/dL (0.2); WBC >100 /HPF (0-5)
[2024-11-01] MEDS ORDERED: XYLOCAINE 1% HCL 20 ML MDV ONE (23:01)
[2024-11-01] MEDS ORDERED: Rocephin 1000 MG INJ ONE (23:01)
--- NOTE | 2024-11-01 23:01 | ERPHSYRPT ---
- History of Present Illness Time Seen by Provider: 11/01/24 21:42 Source: patient, EMS Patient Subjective Stated Complaint: c/o catheter issues Triage Nursing Assessment: patient brought to ED by EMS with c/o sanchez catheter issues. EMS stated that their is leaking around the tube, there is some yellow urine in the bag at this time. Patient states he has 8/10 pain near the sanchez insertion. patient stated that this issue started this morning when he woke up. vitals wnl, skin cool and dry to tough, patient doesn't appear to be in any distress at this time. Physician History: 64 years old male with multiple medical problems including coronary artery disease, congestive heart failure, atrial fibrillation on Eliquis, diabetes mellitus, hypertension, chronic urinary incontinence with indwelling catheter is brought in the ER with leaking around the catheter and pain with movements of catheter in the distal penis area. No discharge. No bleeding. No fever or chills reported. Patient reports also decreased Sanchez output and some sediment in the tubing with suprapubic pain. No vomiting. Denies any flank pain Allergies/Adverse Reactions: No Known Drug Allergies Allergy (Verified 11/01/24 21:51) Home Medications: Atorvastatin Calcium [Lipitor 20MG Tablet] 20 mg PO HS 08/12/16 [History] Apixaban [Eliquis 2.5 mg Tablet] 5 mg PO BID 08/31/22 [History] Potassium Chloride Tab* [Klor Con] 20 meq PO BID 08/31/22 [History] Metoprolol Succinate 25 mg Xl* [Toprol-Xl 25MG Tablets] 25 mg PO BID 12/17/23 [History] Torsemide [Soaanz] 40 mg PO DAILY 12/17/23 [History] Acetaminophen 325 mg [Tylenol 325 mg] 650 mg PO Q4HPRN PRN 03/08/24 [History] Amlodipine Besylate 10 mg PO DAILY 03/08/24 [History] Ferrous Sulfate [Ferosul] 325 mg PO DAILY 03/08/24 [History] Hydrocodone/Acetaminophen [Hydrocodone-Acetamin 5-325 mg] 1 tab PO Q6HPRN PRN 03/08/24 [History] Insulin Lispro 1 dose SQ ACHS PRN 03/08/24 [History] Melatonin 5 mg PO HS 03/08/24 [History] Thiamine HCl 100 mg PO DAILY 03/08/24 [History] glucagon HCL [Glucagon Emergency Kit] 1 mg SQ UD PRN 03/08/24 [History] Clopidogrel Bisulfate [PLAVIX Tablet] 1 tab PO DAILY 04/25/24 [History] Duloxetine HCl 30 mg [Cymbalta 30 MG Capsule] 30 mg PO DAILY 04/25/24 [History] Glucagon [Baqsimi] 3 mg IN DAILY PRN 04/25/24 [History] Naloxone HCl [Narcan] 4 mg IN DAILY PRN 04/25/24 [History] Hx Tetanus, Diphtheria Vaccination/Date Given: No (unknown) Hx Influenza Vaccination/Date Given: No (unknown) Hx Pneumococcal Vaccination/Date Given: No (unknown) Travel Risk - International Travel Have you traveled outside of the country in past 3 weeks: No - Emerging Infectious Disease Are you exhibiting symptoms associated with any current EIDs: No - Past Medical History Pertinent Past Medical History: Yes Neurological History: Dementia, TIA ENT History: Other Cardiac History: Arrhythmia, Congestive Heart Failure, High Cholesterol, Peripheral Vascular Disease, Other Respiratory History: No Pertinent History Endocrine Medical History: Diabetes Type II Musculoskeletal History: No Pertinent History GI Medical History: Cirrhosis History: No Pertinent History Psycho-Social History: Anxiety, Depression Male Reproductive Disorders: Prostate Problems Other Medical History: R SHOULDER INSTABILITY, A FIB. Pt unable to give history - recalled from previous visit - Past Surgical History Past Surgical History: Yes Neuro Surgical History: No Pertinent History Cardiac: No Pertinent History Respiratory: No Pertinent History Gastrointestinal: No Pertinent History Genitourinary: No Pertinent History Musculoskeletal: Orthopedic Surgery Male Surgical History: No Pertinent History Other Surgical History: RIGHT shoulder. Pt unable to give history - recalled from previous visit Significant Family History: no pertinent family hx - Social History Smoking Status: Current some day smoker How long have you smoked: 40 Exposure to second hand smoke: Yes Drug Use: none Patient Lives Alone: Yes - Social Determinants of Health Will the patient participate in the screening: Yes Do you worry about a steady place to live?: No Do you have any problems with any of the following?: No known problems In the past 12 months,have you had to go without utilities?: No Transportation Issues: No Has anyone in your support network made you feel unsafe?: No Have you or anyone in your house had to go without enough: No Comment: Resident at a long-term care facility locally ([facility]) - Review of Systems Constitutional: No Symptoms Ears, Nose, & Throat: No Symptoms Respiratory: No Symptoms Cardiac: No Symptoms Abdominal/Gastrointestinal: Abdominal Pain Genitourinary Symptoms: Dysuria, Urinary Retention Musculoskeletal: Arthralgias Skin: No Symptoms - Nursing Vital Signs Nursing Vital Signs: Initial Vital Signs Temperature 96.8 F 11/01/24 21:35 Pulse Rate 71 11/01/24 21:35 Respiratory Rate 18 11/01/24 21:35 Blood Pressure 133/94 11/01/24 21:35 O2 Sat by Pulse Oximetry 100 11/01/24 21:35 Pain Scale Pain Intensity 8 - Physical Exam General Appearance: no apparent distress Neck Exam: normal inspection Respiratory Exam: wheezing, No respiratory distress Cardiovascular Exam: regular rate/rhythm, normal heart sounds Gastrointestinal/Abdomen Exam: soft, normal bowel sounds, tenderness (Minimal tenderness suprapubic) Male Genital Exam: No scrotal swellling Back Exam: normal inspection, normal range of motion Neurologic Exam: alert, oriented x 3, cooperative Skin Exam: normal color SpO2 Interpretation: normal SpO2: 99 O2 Delivery: Room Air Ordered Tests: Active Orders 24 hr Category Date Time Status CULTURE,URINE Stat Lab 11/01/24 22:41 Received UA W/RFX UR CULTURE Stat Lab 11/01/24 22:41 Completed Lab/Rad Data: Laboratory Results 11/01/24 Range/Units 22:41 Urine Color Yellow (Yellow) Urine Appearance Cloudy A (Clear) Urine pH 6.0 (4.6-8.0) Ur Specific Pearl 1.010 (1.005-1.030) Urine Protein 300 A (Negative) Urine Glucose (UA) 500 A (Negative) mg/dL Urine Ketones Negative (Negative) Urine Blood Small A (Negative) Urine Nitrite Negative (Negative) Urine Bilirubin Negative (Negative) Urine Urobilinogen 0.2 (0.2) mg/dL Ur Leukocyte Esterase Large A (Negative) U Hyaline Cast (Auto) NONE SEEN (0-2) /LPF Urine Microscopic RBC 21-50 A (0-5) /HPF Urine Microscopic WBC >100 A (0-5) /HPF Ur Epithelial Cells None Seen (None Seen) /HPF Urine Bacteria Rare A (None Seen) /HPF Urine Culture Reflexed ORDERED SEPARATELY (NO) - Progress Progress: improved Progress Note: 11/01/24 23:01 64 years old with multiple medical problems is evaluated in the ER for urinary retention, catheter drainage issue. Catheter is replaced and patient has almost 400 cc urine output. Has UTI and given a dose of Rocephin and will continue with cefpodoxime to go home. Patient has appointment with urology tomorrow which she is advised to keep. Does not have any abdominal tenderness, no signs of systemic infection, do not think needs any other workup and is stable for discharge. Counseled pt/family regarding: lab results, diagnosis, need for follow-up Medical Desision Making - Independent Historian Additional History obtained from: Psychologist Personnel/EMT - Diagnostic Testing Diagnostic test were ordered, analyzed, and reviewed by me: Yes - Risk of complications The pt has a mod risk of morbidity or mortality based on: Need for prescription drug management - Departure Departure Disposition: Home Clinical Impression: Acute UTI (urinary tract infection), Urinary retention Condition: Stable Critical Care Time: No Referrals: IRVING HENRY MD [Primary Care Provider] - Follow up with PCP 1 day Instructions: Urinary Retention (DC) Additional Instructions: Keep appointment with urology tomorrow as scheduled. Continue with antibiotics. Return to ER for difficulty urination, abdominal pain, nausea vomiting/fever chills etc. Prescriptions: Cefpodoxime Proxetil 200 mg [Vantin 200 mg] 200 mg PO BID 7 Days #14 tablet
[2024-11-01] MEDS: Rocephin 1000 MG INJ IM ONE (23:02)
[2024-11-01 23:15] VITALS: RESP 19
[2024-11-02 00:10] VITALS: BP 145/85; PULSE 60; O2SAT 100
== END 2024-11-02 00:25 | disposition home or self-care (01) ==
LOC: ED 21:33
DX: R33.9 Retention of urine, unspecified (principal); N39.0 Urinary tract infection, site not specified; T83.038A Leakage of other urinary catheter, initial encounter; R10.2 Pelvic and perineal pain; E78.5 Hyperlipidemia, unspecified; E11.9 Type 2 diabetes mellitus without complications; Z79.01 Long term (current) use of anticoagulants; Z79.02 Long term (current) use of antithrombotics/antiplatelets; Z79.4 Long term (current) use of insulin; Z79.899 Other long term (current) drug therapy; Z72.0 Tobacco use
CPT/HCPCS: 51702; 81001; 87077; 87086; 87186; 96372; 99283; J0696

== ENCOUNTER 2024-12-18 06:04 | Day surgery (SDC) | payer OTHER ==
[2024-12-18] MEDS ORDERED: Xylocaine 1% Vial 30 ML PF IJ ONE (06:18)
[2024-12-18] MEDS ORDERED: Marcaine Mpf 0.5% Vial 30 Ml ONE (06:18)
[2024-12-18 06:30] LABS: Hematocrit 41.6 % (40.1-51.0); Hemoglobin 14.2 g/dL (13.7-17.5); Mean Cell Volume 85.2 fL (79.0-92.2); Mean Corpuscular Hemoglobin 29.1 pg (25.7-32.2); Mean Corpuscular Hgb Concent. 34.1 g/dL (32.3-36.5); Mean Platelet Volume 11.3 fL (9.4-12.4); Platelet Count 252 x10^3/uL (163-337); Red Blood Count 4.88 x10^6/uL (4.63-6.08); Red Cell Distribution Width 13.5 % (11.6-14.4); White Blood Count 7.5 x10^3/uL (4.23-9.07)
[2024-12-18 06:39] VITALS: RESP 16; TEMP 97.7; O2SAT 100
[2024-12-18 06:43] LABS: ALBUMIN 3.9 g/dL (3.5-5.0); ANION GAP 12.2 MEQ/L (5-15); BILIRUBIN,TOTAL 0.6 mg/dL (0.2-1.3); Calcium 8.4 mg/dL (8.4-10.2); Creatinine 1 1.13 mg/dL (0.66-1.25); EST GLOMERULAR FILTRATION RATE 73.5 ML/MIN; Potassium 3.8 mmol/L (3.5-5.1); Total Protein 7.4 g/dL (6.3-8.2)
[2024-12-18] MEDS: CEFAZOLIN 2 GM/100 ML NaCl 2 GM/100 ML IVPB IV SCH (06:51)
[2024-12-18] MEDS: Lactated Ringers 1,000 ML IV SCH (06:52)
[2024-12-18] MEDS: HUMALOG SQ PRN (06:59)
[2024-12-18 08:08] VITALS: BP 140/97; PULSE 77
--- NOTE | 2024-12-19 08:23 | OP ---
SURGERY DATE/TIME: 12/18/2024 [id number] PREOPERATIVE DIAGNOSES: 1) Osteomyelitis, second digit, right foot. 2) Uncontrolled diabetes mellitus. 3) Diabetic peripheral neuropathy. 4) Contracture of second digit/hammertoe. 5) Foot drop. POSTOPERATIVE DIAGNOSES: 1) Osteomyelitis, second digit, right foot. 2) Uncontrolled diabetes mellitus. 3) Diabetic peripheral neuropathy. 4) Contracture of second digit/hammertoe. 5) Foot drop. PROCEDURE: Amputation mid diaphysis of proximal phalanx, second digit of right foot. SURGEON: Edson Fink DPM LAUNDRY SUPERINTENDENT: CHAPIS Harrington ANESTHESIA: Local. HEMOSTASIS: Pressure dressing. ESTIMATED BLOOD LOSS: Minimal. INJECTABLES: 7 mL of a 1:1 mixture of 1% lidocaine plain and 0.5% bupivacaine plain injected in a digital block-type fashion. 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 Patient has had a history of worsening contracture to the second digit since our last followup, and with his peripheral neuropathy, has led to a new infection developing of his second digit of the right foot. Patient does also have foot drop, which he was following back up for, for new bracing, which he does admit has improved his overall stability and ability to ambulate. Because of the infection at the tip of the toe, cultures were obtained and x-rays were demonstrating cortical lysis of the bone, as well a MRSA infection. Patient was placed on antibiotics for this and at this time discussion was held in regards to options going forward. He decided amputation as it is the quickest mode of returning to normal function. From that standpoint, patient understands all risks, complications and benefits of surgical intervention at this time including but not limited to infection, hematoma, seroma, possibility of delayed wound healing, non-wound healing and possible need for further surgical intervention at a later date. No guarantees were provided as to the outcome of surgical intervention at this time. It is at this time we decided to proceed. DESCRIPTION OF PROCEDURE AND FINDINGS: Patient was brought into the operating room, placed on the operating room table in the supine position. At this time, the right lower extremity was prepped and draped in the typical sterile fashion and lowered onto the surgical field. At this time, a 7 mL injection of a 1:1 mixture of 1% lidocaine plain and 0.5% bupivacaine plain was injected to the right foot second digit. Once the block too effect, a fishmouth incision was made over the dorsal aspect of the proximal phalanx. The skin quality distal to this joint was poor, particularly plantarly so the decision was made to make a middiaphyseal resection utilizing an 18 mm sagittal saw. Once this was performed, the toe was disconnected. Soft tissue cultures, as well as the toe, were sent for pathological assessment. From that standpoint, copious amounts of sterile saline were utilized under bulb irrigation in order to flush the surgical site. A 4-0 Monocryl was utilized to coapt the subcutaneous skin edges of the skin. Following this, 3-0 nylon was utilized in a simple interrupted-type fashion to coapt the skin edges under minimal tension. A dressing consisting of Betadine, Adaptic, 4 x 4, Kerlix, ABD and Tristen was applied to the patient's right lower extremity. Patient was then returned to the postoperative anesthesia care unit with vital signs stable and vascular status intact. Patient handled the anesthesia, as well as the procedure without significant complication. Postoperative orders as indicated in the patient's discharge chart.
== END 2024-12-18 08:43 | disposition home or self-care (01) ==
LOC: SDC 06:04
PROVIDERS: ATTEND Podiatrist Foot & Ankle Surgery
DX: M86.9 Osteomyelitis, unspecified (principal); E11.65 Type 2 diabetes mellitus with hyperglycemia; E11.42 Type 2 diabetes mellitus with diabetic polyneuropathy; M20.41 Other hammer toe(s) (acquired), right foot; M21.371 Foot drop, right foot
CPT/HCPCS: 28124; 36415; 80053; 82947; 85027; J0690; J1817